=== PATIENT | female | born 1995 | race African-American/Black ===

== ENCOUNTER → 2020-07-10 | Outpatient (CLI) | payer OTHER ==
[2020-07-10 16:14] LABS: BASO % 0.4 % (0.0-1.0); EOS % 0.6 % (0.0-3.0); HEMATOCRIT 45.2 % (36.0-47.0); HEMOGLOBIN 14.1 g/dl (12.0-15.5); LYMPH # 1.8 10^3/uL (1.5-5.0); LYMPH % 26.9 % (24.0-44.0); MEAN CORPUSCULAR HEMOGLOBIN 30.9 pg (27.0-33.0); MEAN CORPUSCULAR HGB CONC 31.2 g/dl (32.0-36.5); MEAN CORPUSCULAR VOLUME 98.9 fl (80.0-96.0); MONO # 0.4 10^3/uL (0.0-0.8); MONO % 6.6 % (2.0-8.0); NEUTROPHILS # 4.4 10^3/uL (1.5-8.5); NEUTROPHILS % 65.4 % (36.0-66.0); PLATELET COUNT, AUTOMATED 247 10^3/uL (150-450); RED BLOOD COUNT 4.57 10^6/uL (4.00-5.40); WHITE BLOOD COUNT 6.7 10^3/uL (4.0-10.0)
[2020-07-10 16:22] LABS: ALBUMIN 4.1 GM/DL (3.2-5.2); ALT/SGPT 17 U/L (12-78); BILIRUBIN,TOTAL 0.3 MG/DL (0.2-1.0); BLOOD UREA NITROGEN 10 MG/DL (7-18); CALCIUM LEVEL 9.5 MG/DL (8.5-10.1); CARBON DIOXIDE LEVEL 30 MEQ/L (21-32); CHLORIDE LEVEL 105 MEQ/L (98-107); GLOMERULAR FILTRATION RATE > 60.0 (>60); GLUCOSE, FASTING 94 MG/DL (70-100); POTASSIUM SERUM 4.3 MEQ/L (3.5-5.1); SODIUM LEVEL 139 MEQ/L (136-145); TOTAL PROTEIN 7.6 GM/DL (6.4-8.2)
== END ==
LOC: M WUC 14:41
PROVIDERS: ATTEND Physician Assistant
DX: R10.2 Pelvic and perineal pain (principal)

== ENCOUNTER → 2020-07-10 | Outpatient (REF) | payer OTHER | LOC: M WUC 16:20 | PROVIDERS: ATTEND Physician Assistant | DX: Z11.3 Encounter for screening for infections with a predominantly sexual mode of transmission (principal); R10.2 Pelvic and perineal pain ==

== ENCOUNTER 2020-07-21 20:33 | Emergency (ER) | payer OTHER ==
[~2020-07-21] VITALS: Ht 170.2 cm; Wt 76.7 kg
[2020-07-21] MEDS ORDERED: NS 1,000 ML IV ONE (21:10)
[2020-07-21] MEDS ORDERED: MORPHINE 4 MG/ML 1ML VIAL/SYRINGE (J2270) IV ONE (21:10)
[2020-07-21] MEDS ORDERED: ONDANSETRON 4MG/2ML VIAL IV ONE (21:10)
[2020-07-21 21:20] LABS: BASO % 0.4 % (0.0-1.0); EOS # 0.1 10^3/uL (0.0-0.5); EOS % 1.2 % (0.0-3.0); HEMATOCRIT 42.7 % (36.0-47.0); HEMOGLOBIN 13.8 g/dl (12.0-15.5); LYMPH % 33.4 % (24.0-44.0); MEAN CORPUSCULAR HEMOGLOBIN 31.4 pg (27.0-33.0); MEAN CORPUSCULAR HGB CONC 32.3 g/dl (32.0-36.5); MEAN CORPUSCULAR VOLUME 97.3 fl (80.0-96.0); MONO # 0.7 10^3/uL (0.0-0.8); MONO % 8.1 % (2.0-8.0); NEUTROPHILS # 5.1 10^3/uL (1.5-8.5); NEUTROPHILS % 56.8 % (36.0-66.0); PLATELET COUNT, AUTOMATED 222 10^3/uL (150-450); RED BLOOD COUNT 4.39 10^6/uL (4.00-5.40); WHITE BLOOD COUNT 8.9 10^3/uL (4.0-10.0)
[2020-07-21 21:47] LABS: ALBUMIN 3.9 GM/DL (3.2-5.2); ALT/SGPT 17 U/L (12-78); BILIRUBIN,DIRECT < 0.1 MG/DL (0.0-0.2); BILIRUBIN,TOTAL 0.2 MG/DL (0.2-1.0); LIPASE 130 U/L (73-393); TOTAL PROTEIN 7.7 GM/DL (6.4-8.2)
[2020-07-21] MEDS ORDERED: ISOVUE-370 76% 100ML VIAL As Ordered ONE (21:54)
[2020-07-21] MEDS ORDERED: GI COCKTAIL 50ML BTL(HYOSCYAMINE/MAALOX/LIDOCAINE VISCOUS)(1:3:1) PO ONE (22:35)
[2020-07-21] MEDS ORDERED: DICYCLOMINE INJ 20MG/2ML (J0500) IM ONE (22:35)
--- NOTE | 2020-07-21 22:49 | REPVR ---
PROCEDURE INFORMATION: Exam: CT Abdomen And Pelvis With Contrast Exam date and time: 07/21/2020 10:00 PM Age: 25 years old Clinical indication: Abdominal pain; Localized; Right lower quadrant (rlq); Additional info: Rlq pain; R/O appy TECHNIQUE: Imaging protocol: Computed tomography of the abdomen and pelvis with contrast. Radiation optimization: All CT scans at this facility use at least one of these dose optimization techniques: automated exposure control; mA and/or kV adjustment per patient size (includes targeted exams where dose is matched to clinical indication); or iterative reconstruction. Contrast material: ISOVUE 370; Contrast volume: 100 ml; Contrast route: INTRAVENOUS (IV); COMPARISON: No relevant prior studies available. FINDINGS: Lungs: Clear appearing lung bases. Heart: The heart is normal in size and there is no pericardial effusion. Liver: Normal appearing liver. Gallbladder and bile ducts: There are surgical clips at the gallbladder fossa and the patient is post cholecystectomy. Normal common bile duct. Pancreas: Normal pancreas. Spleen: Normal spleen. Adrenal glands: Normal adrenal glands. Kidneys and ureters: There is enhancement of both kidneys. There is no evidence of hydronephrosis. Stomach and bowel: The cecum is in the right pelvis and there is no evidence significant inflammation along the margin. The appendix is very difficult to identify as it is contiguous with the terminal ileum. Intraperitoneal space: There is a small amount of free fluid within the pelvis. Vasculature: There is opacification of the aorta which appears normal in size. Lymph nodes: Unremarkable. No enlarged lymph nodes. Urinary bladder: Normal urinary bladder. Reproductive: Normal size uterus. 2.5 cm cyst right ovary. Bones/joints: There is no evidence of bony abnormality. Soft tissues: Unremarkable. IMPRESSION: 2.5 cm cyst right ovary and a small amount of free fluid within the pelvis. Electronically signed by: Nelson Ellison On 07/21/2020 22:49:07 PM
[2020-07-21] MEDS ORDERED: HYDR-3715 PO (22:59)
[2020-07-21] MEDS ORDERED: NORCO 5/325MG TABLET (BULK FOR ED) PO ONE (23:00)
[2020-07-21 23:16] VITALS: BP 113/66
== END 2020-07-21 23:24 | disposition home or self-care (01) ==
LOC: M ED 20:33
DX: N83.201 Unspecified ovarian cyst, right side (principal); R11.0 Nausea; G43.909 Migraine, unspecified, not intractable, without status migrainosus; F17.290 Nicotine dependence, other tobacco product, uncomplicated
CPT/HCPCS: 74177; 80047; 80076; 83690; 84702; 85025; 96361; 96372; 96374; 96375; 99284; J0500; J2270; J2405; Q9967

== ENCOUNTER 2020-08-01 23:09 | Emergency (ER) | payer OTHER ==
[~2020-08-01] VITALS: Ht 170.2 cm; Wt 77.4 kg
[~2020-08-01 23:09] MED LIST: HYDR-3715 PO
[2020-08-01] MEDS ORDERED: ACET1TAB55 PO (23:33)
[2020-08-02 01:32] LABS: BASO % 0.4 % (0.0-1.0); EOS # 0.1 10^3/uL (0.0-0.5); EOS % 1.6 % (0.0-3.0); HEMATOCRIT 40.1 % (36.0-47.0); HEMOGLOBIN 12.9 g/dl (12.0-15.5); LYMPH # 2.7 10^3/uL (1.5-5.0); LYMPH % 34.9 % (24.0-44.0); MEAN CORPUSCULAR HEMOGLOBIN 31.9 pg (27.0-33.0); MEAN CORPUSCULAR HGB CONC 32.2 g/dl (32.0-36.5); MONO # 0.5 10^3/uL (0.0-0.8); MONO % 6.7 % (2.0-8.0); NEUTROPHILS # 4.3 10^3/uL (1.5-8.5); NEUTROPHILS % 56.3 % (36.0-66.0); PLATELET COUNT, AUTOMATED 246 10^3/uL (150-450); RED BLOOD COUNT 4.05 10^6/uL (4.00-5.40); WHITE BLOOD COUNT 7.7 10^3/uL (4.0-10.0)
[2020-08-02] MEDS ORDERED: ONDANSETRON 4MG/2ML VIAL IV ONE (01:50)
[2020-08-02] MEDS ORDERED: ISOVUE-370 76% 100ML VIAL As Ordered ONE (01:50)
[2020-08-02 02:03] LABS: ALBUMIN 3.9 GM/DL (3.2-5.2); BILIRUBIN,DIRECT 0.1 MG/DL (0.0-0.2); BILIRUBIN,TOTAL 0.2 MG/DL (0.2-1.0); TOTAL PROTEIN 7.2 GM/DL (6.4-8.2)
[2020-08-02] MEDS: MORPHINE 4 MG/ML 1ML VIAL/SYRINGE (J2270) IV PRN ×2 (02:03→02:58)
--- NOTE | 2020-08-02 02:51 | REPVR ---
PROCEDURE INFORMATION: Exam: CT Abdomen And Pelvis With Contrast Exam date and time: 08/02/2020 1:46 AM Age: 25 years old Clinical indication: Abdominal pain; Other: Left and right; Additional info: Rlq abd pain, HX of ovarian cysts TECHNIQUE: Imaging protocol: Computed tomography of the abdomen and pelvis with contrast. Axial, coronal and sagittal reformatted images were created and reviewed. Radiation optimization: All CT scans at this facility use at least one of these dose optimization techniques: automated exposure control; mA and/or kV adjustment per patient size (includes targeted exams where dose is matched to clinical indication); or iterative reconstruction. Contrast material: ISO; Contrast volume: 100 ml; Contrast route: INTRAVENOUS (IV); COMPARISON: CT ABD/PEL W/IV CONTRAST ONLY 07/21/2020 9:59 PM FINDINGS: Liver: Scattered hypervascular hepatic lesions, measuring up to 1.1 cm in the left hepatic lobe, similar to prior and likely secondary to flash filling hemangiomata. Gallbladder and bile ducts: Status post cholecystectomy. No biliary ductal dilatation. Pancreas: Unremarkable. Spleen: Unremarkable. Adrenal glands: Normal. No mass. Kidneys and ureters: No mass. No radiodense calculi. No hydronephrosis. Stomach and bowel: No bowel wall thickening. No obstruction. No pneumatosis. Appendix: Normal. Intraperitoneal space: Trace nonspecific free pelvic fluid, likely physiologic. No organized fluid collection. No free air. Vasculature: Unremarkable. No aneurysm. Lymph nodes: No pathologically enlarged lymph nodes. Urinary bladder: Unremarkable as visualized. Reproductive: Unremarkable. Bones/joints: No acute osseous abnormality. Soft tissues: Small, fat containing umbilical hernia. IMPRESSION: 1. No CT evidence of acute intra-abdominal or pelvic pathology. 2. Additional findings, as above. Electronically signed by: Humberto Covarrubias On 08/02/2020 02:50:36 AM
[2020-08-02 02:56] VITALS: BP 143/88
--- NOTE | 2020-08-02 02:58 | REPVR ---
PROCEDURE INFORMATION: Exam: US Nonobstetric Pelvis; Complete Exam date and time: 08/02/2020 2:29 AM Age: 25 years old Clinical indication: Pelvic pain; Additional info: Rlq abd pain, HX of ovarian cysts TECHNIQUE: Imaging protocol: Transabdominal pelvic nonobstetric ultrasound. Complete exam. Real time ultrasound with image documentation. COMPARISON: CT ABD/PEL W/IV CONTRAST ONLY 08/02/2020 1:55 AM FINDINGS: Uterus/cervix: 6.9 x 3.8 x 4 cm. Normal endometrial thickness, measuring approximately 8 mm. Right ovary: 2.9 x 1.9 x 2.6 cm. No mass. Normal blood flow. Left ovary: 2.7 x 1.6 x 2.1 cm. No mass. Normal blood flow. Intraperitoneal space: No intraperitoneal fluid. Urinary bladder: Normal. IMPRESSION: No acute sonographic findings. Electronically signed by: Humberto Covarrubias On 08/02/2020 02:58:41 AM
[2020-08-02] MEDS ORDERED: OXYCODONE/APAP 5MG/325MG(BULK FOR ED) 1 TABLET PO ONE (03:20)
[2020-08-04] MEDS ORDERED: BACT800T5 PO (08:10)
== END 2020-08-02 03:38 | disposition home or self-care (01) ==
LOC: M ED 23:09
DX: R10.9 Unspecified abdominal pain (principal); F17.200 Nicotine dependence, unspecified, uncomplicated
CPT/HCPCS: 74177; 76856; 80047; 80076; 81001; 83690; 84702; 85025; 87088; 87186; 93976; 96374; 96375; 96376; 99284; J2270; J2405; Q9967

== ENCOUNTER 2020-08-09 19:26 | Emergency (ER) | payer OTHER ==
[~2020-08-09] VITALS: Ht 170.2 cm; Wt 70.5 kg
[~2020-08-09 19:26] MED LIST changes: +ACET1TAB55 PO; +BACT800T5 PO
[2020-08-09] MEDS ORDERED: NS 1,000 ML IV ONE (21:35)
[2020-08-09 21:47] LABS: BASO % 0.5 % (0.0-1.0); EOS # 0.1 10^3/uL (0.0-0.5); EOS % 1.2 % (0.0-3.0); HEMATOCRIT 43.2 % (36.0-47.0); HEMOGLOBIN 13.8 g/dl (12.0-15.5); LYMPH # 2.7 10^3/uL (1.5-5.0); LYMPH % 32.3 % (24.0-44.0); MEAN CORPUSCULAR HEMOGLOBIN 31.9 pg (27.0-33.0); MEAN CORPUSCULAR HGB CONC 31.9 g/dl (32.0-36.5); MONO # 0.6 10^3/uL (0.0-0.8); MONO % 7.2 % (2.0-8.0); NEUTROPHILS # 4.9 10^3/uL (1.5-8.5); NEUTROPHILS % 58.6 % (36.0-66.0); PLATELET COUNT, AUTOMATED 249 10^3/uL (150-450); RED BLOOD COUNT 4.32 10^6/uL (4.00-5.40); WHITE BLOOD COUNT 8.4 10^3/uL (4.0-10.0)
[2020-08-09] MEDS ORDERED: ONDANSETRON 4MG/2ML VIAL IV ONE (22:10)
[2020-08-09] MEDS ORDERED: MORPHINE 4 MG/ML 1ML VIAL/SYRINGE (J2270) IV ONE (22:10)
[2020-08-09 22:12] LABS: ALBUMIN 3.9 GM/DL (3.2-5.2); BILIRUBIN,DIRECT 0.1 MG/DL (0.0-0.2); BILIRUBIN,TOTAL 0.2 MG/DL (0.2-1.0); TOTAL PROTEIN 7.4 GM/DL (6.4-8.2)
[2020-08-09] MEDS ORDERED: ISOVUE-370 76% 100ML VIAL As Ordered ONE (22:15)
--- NOTE | 2020-08-09 23:00 | REPVR ---
PROCEDURE INFORMATION: Exam: CT Abdomen And Pelvis With Contrast Exam date and time: 08/09/2020 10:27 PM Age: 25 years old Clinical indication: Abdominal pain; Flank; Right; Additional info: R flank pain, recent UTI, appy vs pyelo TECHNIQUE: Imaging protocol: Computed tomography of the abdomen and pelvis with contrast. Radiation optimization: All CT scans at this facility use at least one of these dose optimization techniques: automated exposure control; mA and/or kV adjustment per patient size (includes targeted exams where dose is matched to clinical indication); or iterative reconstruction. Contrast material: ISOVUE 370; Contrast volume: 100 ml; Contrast route: INTRAVENOUS (IV); COMPARISON: CT ABD/PEL W/IV CONTRAST ONLY 08/02/2020 1:55 AM FINDINGS: Liver: Multiple hypervascular lesions scattered about the liver measuring up to 11 mm in the left hepatic lobe and 10 mm within the right hepatic lobe are unchanged. In a low-risk patient, these lesions are most likely to be benign and no further follow-up is recommended. In a high-risk patient, recommend further evaluation with liver MRI. Gallbladder and bile ducts: Status post cholecystectomy. Normal caliber common bile duct. Pancreas: Unremarkable. No ductal dilation. Spleen: Unremarkable. No splenomegaly. Adrenal glands: Normal. No mass. Kidneys and ureters: Unremarkable. No stones. No hydronephrosis. Stomach and bowel: Unremarkable. No obstruction. No mucosal thickening. Appendix: No evidence of appendicitis. Intraperitoneal space: Unremarkable. No free air. No significant fluid collection. Vasculature: Unremarkable. No abdominal aortic aneurysm. Lymph nodes: Unremarkable. No enlarged lymph nodes. Urinary bladder: Unremarkable as visualized. Reproductive: Unremarkable as visualized. Bones/joints: No acute fracture. Soft tissues: Unremarkable. IMPRESSION: 1. No acute abnormality. 2. Multiple hypervascular lesions scattered about the liver measuring up to 11 mm in the left hepatic lobe and 10 mm within the right hepatic lobe are unchanged. In a low-risk patient, these lesions are most likely to be benign and no further follow-up is recommended. In a high-risk patient, recommend further evaluation with liver MRI. High-risk includes patients with known malignancy with a propensity to metastasize to the liver, cirrhosis or the presence of hepatic risk factors (including hepatitis, nonalcoholic steatohepatitis, alcoholism, sclerosing cholangitis, primary biliary cirrhosis, choledochal cysts, hemochromatosis and other hereditary hepatic conditions, and anabolic steroid use). Electronically signed by: Mukesh Gomez On 08/09/2020 23:00:35 PM
[2020-08-09 23:40] VITALS: BP 132/87
--- NOTE | 2020-08-10 09:04 | ED PDOC ---
Post-Departure Follow-Up certified letter sent to regarding CT abd/p - needs fu.obtain pcp name and fax. if no pcp name refer [facility] and fax Suzanna Spence MD Aug 10, 2020 09:04
== END 2020-08-09 23:45 | disposition home or self-care (01) ==
LOC: M ED 19:26
DX: R10.9 Unspecified abdominal pain (principal); R11.2 Nausea with vomiting, unspecified; F17.200 Nicotine dependence, unspecified, uncomplicated; Z79.2 Long term (current) use of antibiotics
CPT/HCPCS: 74177; 80047; 80076; 81001; 83690; 84702; 85025; 96361; 96374; 96375; 99284; J2270; J2405; Q9967

== ENCOUNTER 2020-08-27 15:21 | Emergency (ER) | payer OTHER ==
[~2020-08-27] VITALS: Ht 170.2 cm; Wt 75.2 kg
[2020-08-27 18:00] LABS: BASO % 0.3 % (0.0-1.0); EOS % 0.3 % (0.0-3.0); HEMATOCRIT 44.3 % (36.0-47.0); HEMOGLOBIN 14.6 g/dl (12.0-15.5); LYMPH # 2.1 10^3/uL (1.5-5.0); LYMPH % 16.5 % (24.0-44.0); MEAN CORPUSCULAR HEMOGLOBIN 32.5 pg (27.0-33.0); MEAN CORPUSCULAR VOLUME 98.7 fl (80.0-96.0); MONO # 0.8 10^3/uL (0.0-0.8); MONO % 6.5 % (2.0-8.0); NEUTROPHILS # 9.9 10^3/uL (1.5-8.5); NEUTROPHILS % 76.2 % (36.0-66.0); PLATELET COUNT, AUTOMATED 232 10^3/uL (150-450); RED BLOOD COUNT 4.49 10^6/uL (4.00-5.40); WHITE BLOOD COUNT 12.9 10^3/uL (4.0-10.0)
[2020-08-27 18:23] LABS: ALBUMIN 4.1 GM/DL (3.2-5.2); BILIRUBIN,DIRECT 0.2 MG/DL (0.0-0.2); BILIRUBIN,TOTAL 0.9 MG/DL (0.2-1.0); TOTAL PROTEIN 7.9 GM/DL (6.4-8.2)
[2020-08-27] MEDS ORDERED: KETOROLAC 30 MG/ML 1ML VIAL IV ONE (19:05)
[2020-08-27] MEDS ORDERED: ONDANSETRON 4MG/2ML VIAL IV ONE (19:05)
[2020-08-27] MEDS ORDERED: ISOVUE-370 76% 100ML VIAL As Ordered ONE (19:22)
--- NOTE | 2020-08-27 20:35 | REPVR ---
PROCEDURE INFORMATION: Exam: CT Abdomen And Pelvis With Contrast Exam date and time: 08/27/2020 7:29 PM Age: 25 years old Clinical indication: Abdominal pain; Localized; Lower; Additional info: Lower abd pain, elev wbc TECHNIQUE: Imaging protocol: Computed tomography of the abdomen and pelvis with contrast. Radiation optimization: All CT scans at this facility use at least one of these dose optimization techniques: automated exposure control; mA and/or kV adjustment per patient size (includes targeted exams where dose is matched to clinical indication); or iterative reconstruction. Contrast material: ISOVUE 370; Contrast volume: 100 ml; Contrast route: INTRAVENOUS (IV); COMPARISON: CT ABD/PEL W/IV CONTRAST ONLY 08/09/2020 10:20 PM FINDINGS: Liver: Enhancing 8 mm mass in the posterior right lobe of the liver is not significantly changed. Other hypervascular lesions in the liver seen on the previous exam are not well visualized, possibly due to differences in contrast bolus timing. No new liver masses are seen. Gallbladder and bile ducts: There has been prior cholecystectomy. No biliary duct dilation. Pancreas: Normal. No ductal dilation. Spleen: Normal. No splenomegaly. Adrenal glands: Normal. No mass. Kidneys and ureters: Normal. No hydronephrosis. Stomach and bowel: Unremarkable. No obstruction. No mucosal thickening. Appendix: No evidence of appendicitis. Intraperitoneal space: Trace free fluid in the pelvis. Vasculature: Unremarkable. No abdominal aortic aneurysm. Lymph nodes: Unremarkable. No enlarged lymph nodes. Urinary bladder: Unremarkable as visualized. Reproductive: Involuting physiologic cysts are noted in both ovaries. No hydrosalpinx. Uterus is unremarkable. Bones/joints: Unremarkable. No acute fracture. Soft tissues: Unremarkable. IMPRESSION: 1. Involuting physiologic cysts in both ovaries. Trace free fluid in the pelvis, likely physiologic. 2. Hypervascular lesions seen in the liver on the previous exam are not well visualized on this exam. No new liver masses are seen. 3. No acute findings. Electronically signed by: Tristin Wiggins On 08/27/2020 20:36:01 PM
[2020-08-27 21:12] VITALS: BP 119/66
== END 2020-08-27 21:19 | disposition home or self-care (01) ==
LOC: M ED 15:21
DX: R10.30 Lower abdominal pain, unspecified (principal); R93.2 Abnormal findings on diagnostic imaging of liver and biliary tract
CPT/HCPCS: 74177; 80047; 80076; 81001; 83690; 84702; 85025; 96374; 96375; 99284; J1885; J2405; Q9967

== ENCOUNTER 2020-10-15 20:05 | Emergency (ER) | payer OTHER ==
[~2020-10-15] VITALS: Ht 170.2 cm; Wt 76.8 kg
[2020-10-15] MEDS ORDERED: APAP325T4 PO (20:15)
[2020-10-15] MEDS ORDERED: IBUP80TA PO (20:15)
[2020-10-16] MEDS ORDERED: NS 500 ML IV ONE (00:40)
[2020-10-16] MEDS ORDERED: ONDANSETRON 4MG/2ML VIAL IV ONE (00:40)
[2020-10-16] MEDS ORDERED: ISOVUE-370 76% 100ML VIAL As Ordered ONE (00:43)
[2020-10-16] MEDS ORDERED: KETOROLAC 30 MG/ML 1ML VIAL IV ONE (01:00)
[2020-10-16 01:09] LABS: BASO % 0.1 % (0.0-1.0); HEMATOCRIT 42.2 % (36.0-47.0); HEMOGLOBIN 13.9 g/dl (12.0-15.5); MEAN CORPUSCULAR HGB CONC 32.9 g/dl (32.0-36.5); MONO # 0.5 10^3/uL (0.0-0.8); MONO % 4.2 % (2.0-8.0); NEUTROPHILS # 11.1 10^3/uL (1.5-8.5); NEUTROPHILS % 87.4 % (36.0-66.0); PLATELET COUNT, AUTOMATED 244 10^3/uL (150-450); RED BLOOD COUNT 4.35 10^6/uL (4.00-5.40); WHITE BLOOD COUNT 12.7 10^3/uL (4.0-10.0)
[2020-10-16 01:39] LABS: ALBUMIN 3.8 GM/DL (3.2-5.2); ALT/SGPT 13 U/L (12-78); BILIRUBIN,DIRECT 0.1 MG/DL (0.0-0.2); BILIRUBIN,TOTAL 0.4 MG/DL (0.2-1.0); BLOOD UREA NITROGEN 11 MG/DL (7-18); CALCIUM LEVEL 9.6 MG/DL (8.5-10.1); CARBON DIOXIDE LEVEL 26 MEQ/L (21-32); CHLORIDE LEVEL 102 MEQ/L (98-107); GLOMERULAR FILTRATION RATE > 60.0 (>60); GLUCOSE, FASTING 97 MG/DL (70-100); LIPASE 87 U/L (73-393); POTASSIUM SERUM 4.7 MEQ/L (3.5-5.1); SODIUM LEVEL 135 MEQ/L (136-145); TOTAL PROTEIN 7.7 GM/DL (6.4-8.2)
[2020-10-16] MEDS: MORPHINE 2 MG/ML 1ML VIAL (J2270) IV PRN ×2 (01:50→03:00)
--- NOTE | 2020-10-16 02:52 | REPVR ---
PROCEDURE INFORMATION: Exam: CT Abdomen And Pelvis With Contrast Exam date and time: 10/16/2020 12:36 AM Age: 25 years old Clinical indication: Abdominal pain; Localized; Lower; Prior surgery; Surgery date: Post-operative (0-2 days); Surgery type: Lap; Additional info: Post operative pain TECHNIQUE: Imaging protocol: Computed tomography of the abdomen and pelvis with contrast. Radiation optimization: All CT scans at this facility use at least one of these dose optimization techniques: automated exposure control; mA and/or kV adjustment per patient size (includes targeted exams where dose is matched to clinical indication); or iterative reconstruction. Contrast material: ISO; Contrast volume: 100 ml; Contrast route: INTRAVENOUS (IV); COMPARISON: CT ABD/PEL W/IV CONTRAST ONLY 08/27/2020 7:27 PM FINDINGS: Liver: There are several focal areas of ill-defined hyperenhancement in the liver which are similar to the prior study. Gallbladder and bile ducts: Status post cholecystectomy. Pancreas: Normal. No ductal dilation. Spleen: Normal. No splenomegaly. Adrenal glands: Normal. No mass. Kidneys and ureters: Normal. No hydronephrosis. Stomach and bowel: Unremarkable. No obstruction. No mucosal thickening. Appendix: A normal appendix is seen. Intraperitoneal space: Minimal free air in the abdomen consistent with recent surgery. Minimal free fluid in the cul-de-sac which is upper normal for physiologic origin. Vasculature: Unremarkable. No abdominal aortic aneurysm. Lymph nodes: Unremarkable. No enlarged lymph nodes. Urinary bladder: Unremarkable as visualized. Reproductive: Unremarkable as visualized. Bones/joints: Unremarkable. No acute fracture. Soft tissues: Gas and infiltration about the umbilicus with a small surgical port in the right abdomen consistent with recent laparoscopic procedure. IMPRESSION: 1. Findings consistent with recent laparoscopic procedure. 2. Status post cholecystectomy which is similar to 08/09/2020. 3. Several foci of ill-defined hyperenhancement in the liver which are similar to the prior study. 4. Otherwise negative CT abdomen/pelvis. Electronically signed by: Lucio Waters On 10/16/2020 02:52:04 AM
[2020-10-16] MEDS ORDERED: OXYCODONE/APAP 5MG/325MG(BULK FOR ED) 1 TABLET PO ONE (03:35)
[2020-10-16] MEDS ORDERED: ONDA4TAB6 PO (03:38)
[2020-10-16 04:26] VITALS: BP 119/81
--- NOTE | 2020-10-16 14:11 | ED PDOC ---
Post-Departure Follow-Up ct abd/p faxed to dr baca for fu mg Suzanna Fabian MD Oct 16, 2020 14:11
== END 2020-10-16 04:27 | disposition home or self-care (01) ==
LOC: M ED 20:05
DX: G89.18 Other acute postprocedural pain (principal); F17.200 Nicotine dependence, unspecified, uncomplicated
CPT/HCPCS: 74177; 80048; 80076; 81001; 83605; 83690; 85025; 93041; 96361; 96374; 96375; 96376; 99284; J1885; J2270; J2405; Q9967

== ENCOUNTER 2020-10-22 18:24 | Emergency (ER) | payer OTHER ==
[~2020-10-22] VITALS: Ht 170.2 cm; Wt 74.8 kg
[~2020-10-22 18:24] MED LIST changes: +APAP325T4 PO; +IBUP80TA PO; +ONDA4TAB6 PO
--- NOTE | 2020-10-22 19:24 | REP ---
INDICATION: no BM in 1 week. COMPARISON: None. FINDINGS: KUB shows the intestinal gas pattern to be nonspecific. The organ silhouettes insofar as delineated are unremarkable. There is no evidence of free intraperitoneal air. The stool pattern is unremarkable. IMPRESSION: Nonspecific. <Electronically signed by Ra Paul > 10/22/201919
[2020-10-22 19:43] LABS: BASO % 0.2 % (0.0-1.0); EOS # 0.1 10^3/uL (0.0-0.5); EOS % 1.4 % (0.0-3.0); HEMATOCRIT 42.3 % (36.0-47.0); HEMOGLOBIN 13.9 g/dl (12.0-15.5); MEAN CORPUSCULAR HEMOGLOBIN 31.8 pg (27.0-33.0); MEAN CORPUSCULAR HGB CONC 32.9 g/dl (32.0-36.5); MEAN CORPUSCULAR VOLUME 96.8 fl (80.0-96.0); MONO # 0.7 10^3/uL (0.0-0.8); MONO % 8.2 % (2.0-8.0); NEUTROPHILS # 5.5 10^3/uL (1.5-8.5); NEUTROPHILS % 65.8 % (36.0-66.0); PLATELET COUNT, AUTOMATED 218 10^3/uL (150-450); RED BLOOD COUNT 4.37 10^6/uL (4.00-5.40); WHITE BLOOD COUNT 8.4 10^3/uL (4.0-10.0)
[2020-10-22 20:18] LABS: BLOOD UREA NITROGEN 11 MG/DL (7-18); CALCIUM LEVEL 9.6 MG/DL (8.5-10.1); CARBON DIOXIDE LEVEL 27 MEQ/L (21-32); CHLORIDE LEVEL 104 MEQ/L (98-107); CREATININE FOR GFR 0.57 MG/DL (0.55-1.30); GLOMERULAR FILTRATION RATE > 60.0 (>60); GLUCOSE, FASTING 97 MG/DL (70-100); POTASSIUM SERUM 4.4 MEQ/L (3.5-5.1); SODIUM LEVEL 137 MEQ/L (136-145)
[2020-10-22 20:19] LABS: ALBUMIN 3.9 GM/DL (3.2-5.2); ALT/SGPT 23 U/L (12-78); BILIRUBIN,DIRECT 0.1 MG/DL (0.0-0.2); BILIRUBIN,TOTAL 0.4 MG/DL (0.2-1.0); LIPASE 96 U/L (73-393); TOTAL PROTEIN 7.4 GM/DL (6.4-8.2)
[2020-10-22] MEDS ORDERED: KETOROLAC 30 MG/ML 1ML VIAL IV ONE (21:35)
[2020-10-22] MEDS ORDERED: ONDANSETRON 4MG/2ML VIAL IV ONE (21:35)
[2020-10-22] MEDS ORDERED: FLEET ENEMA PR STA (21:37)
[2020-10-22 21:54] VITALS: BP 115/79
[2020-10-22] MEDS ORDERED: LACTULOSE 20 GM/30 ML SYRUP UD PO ONE (22:05)
[2020-10-22] MEDS ORDERED: REGL10TA6 PO (22:34)
[2020-10-22] MEDS ORDERED: LACT10SO3 PO (22:34)
== END 2020-10-22 22:42 | disposition home or self-care (01) ==
LOC: M ED 18:24
DX: K59.00 Constipation, unspecified (principal); R11.2 Nausea with vomiting, unspecified; R10.9 Unspecified abdominal pain
CPT/HCPCS: 74018; 80048; 80076; 83690; 85025; 96374; 96375; 99284; J1885; J2405

== ENCOUNTER → 2020-11-27 | Outpatient (CLI) | payer OTHER ==
[~2020-11-27] MED LIST changes: +LACT10SO3 PO; +REGL10TA6 PO
--- NOTE | 2020-11-27 14:29 | REP ---
INDICATION: PELVIC PAIN ? OVARIAN CYST. COMPARISON: 08/02/2020. TECHNIQUE: Transabdominal scanning performed. Patient declined endovaginal ultrasound. FINDINGS: Uterine dimensions are 7.0 x 4.2 x 5.1 cm. Endometrial echo is 4 mm in AP dimension and centrally placed. The bladder measures 5.1 x 9.0 x 3.0cm. The right ovary has dimensions of 4.4 x 4.1 x 4.0 cm. It's Doppler flow is normal with a resistive index of 0.59. The left ovary dimensions are 3.8 x 3.8 x 1.8 cm. It's Doppler flow was normal with resistive index of 0.72. Complex likely hemorrhagic cyst of the right ovary measures 3.6 x 3.4 x 3.3 cm. No free fluid is seen in the cul-de-sac. IMPRESSION: Complex cyst of the right ovary is likely hemorrhagic, 3.6 x 3.4 x 3.3 cm. <Electronically signed by Jose Sawyer > 11/27/20 [id number]
== END ==
LOC: M RAD 12:59
PROVIDERS: ATTEND Student in an Organized Health Care Education/Training Program
DX: N83.201 Unspecified ovarian cyst, right side (principal)

== ENCOUNTER 2021-02-06 13:42 | Emergency (ER) | payer OTHER ==
[~2021-02-06] VITALS: Ht 175.3 cm; Wt 72.7 kg
[2021-02-06 16:30] LABS: BASO % 0.4 % (0.0-1.0); EOS # 0.1 10^3/uL (0.0-0.5); EOS % 0.9 % (0.0-3.0); HEMATOCRIT 41.3 % (36.0-47.0); HEMOGLOBIN 13.7 g/dl (12.0-15.5); LYMPH # 3.2 10^3/uL (1.5-5.0); LYMPH % 30.8 % (24.0-44.0); MEAN CORPUSCULAR HEMOGLOBIN 32.8 pg (27.0-33.0); MEAN CORPUSCULAR HGB CONC 33.2 g/dl (32.0-36.5); MEAN CORPUSCULAR VOLUME 98.8 fl (80.0-96.0); MONO # 0.7 10^3/uL (0.0-0.8); MONO % 6.7 % (2.0-8.0); NEUTROPHILS # 6.4 10^3/uL (1.5-8.5); PLATELET COUNT, AUTOMATED 251 10^3/uL (150-450); RED BLOOD COUNT 4.18 10^6/uL (4.00-5.40); WHITE BLOOD COUNT 10.4 10^3/uL (4.0-10.0)
[2021-02-06] MEDS ORDERED: ONDANSETRON 4MG/2ML VIAL IV ONE (16:40)
[2021-02-06] MEDS ORDERED: NS 1,000 ML IV ONE (16:40)
[2021-02-06] MEDS ORDERED: MORPHINE 4 MG/ML 1ML VIAL/SYRINGE (J2270) IV ONE (16:40)
[2021-02-06 17:06] LABS: ALT/SGPT 12 U/L (12-78); BILIRUBIN,DIRECT < 0.1 MG/DL (0.0-0.2); BILIRUBIN,TOTAL 0.2 MG/DL (0.2-1.0); BLOOD UREA NITROGEN 14 MG/DL (7-18); CALCIUM LEVEL 9.6 MG/DL (8.5-10.1); CARBON DIOXIDE LEVEL 29 MEQ/L (21-32); CHLORIDE LEVEL 102 MEQ/L (98-107); CREATININE FOR GFR 0.72 MG/DL (0.55-1.30); GLOMERULAR FILTRATION RATE > 60.0 (>60); GLUCOSE, FASTING 73 MG/DL (70-100); LIPASE 127 U/L (73-393); POTASSIUM SERUM 4.3 MEQ/L (3.5-5.1); SODIUM LEVEL 138 MEQ/L (136-145); TOTAL PROTEIN 7.8 GM/DL (6.4-8.2)
[2021-02-06] MEDS ORDERED: ISOVUE-370 76% 100ML VIAL As Ordered ONE (17:55)
--- NOTE | 2021-02-06 18:32 | REPVR ---
PROCEDURE INFORMATION: Exam: CT Abdomen And Pelvis With Contrast Exam date and time: 02/06/2021 6:02 PM Age: 25 years old Clinical indication: Abdominal pain; Localized; Right lower quadrant (rlq); Additional info: Rlq pain R/O appy TECHNIQUE: Imaging protocol: Computed tomography of the abdomen and pelvis with contrast. Radiation optimization: All CT scans at this facility use at least one of these dose optimization techniques: automated exposure control; mA and/or kV adjustment per patient size (includes targeted exams where dose is matched to clinical indication); or iterative reconstruction. Contrast material: ISOVUE 370; Contrast volume: 100 ml; Contrast route: INTRAVENOUS (IV); COMPARISON: CT ABD/PEL W/IV CONTRAST ONLY 10/16/2020 1:54 AM FINDINGS: Liver: There is a diffuse decrease in hepatic parenchymal density, consistent with steatosis. Redemonstration of foci of hyperenhancement in the liver measuring up to 1.4 cm in segment 2 of the left lobe of the liver. These likely represent hemangiomas. Correlation with nonemergent liver ultrasound could be obtained if clinically desired. Gallbladder and bile ducts: There has been a cholecystectomy. Pancreas: Normal. No ductal dilation. Spleen: Normal. No splenomegaly. Adrenal glands: Normal. No mass. Kidneys and ureters: Normal. No hydronephrosis. Stomach and bowel: Unremarkable. No obstruction. No mucosal thickening. Appendix: The appendix is within normal limits. There is no appendiceal enlargement, periappendiceal inflammatory changes or abscess. Intraperitoneal space: There is minimal fluid in the cul-de-sac most likely physiologic. Clinical correlation to exclude other causes of cul-de-sac fluid suggested. Also noted are complex fluid collections in the parametrial and adnexal regions bilaterally. Possibility of inflammatory disease such as endometriosis or PID to be excluded clinically. Vasculature: Unremarkable. No abdominal aortic aneurysm. Lymph nodes: Unremarkable. No enlarged lymph nodes. Urinary bladder: Unremarkable as visualized. Reproductive: See "Intraperitoneal space" finding. Bones/joints: Unremarkable. No acute fracture. Soft tissues: There is a small umbilical hernia. There is no evidence of incarceration. IMPRESSION: 1. There is a diffuse decrease in hepatic parenchymal density, consistent with steatosis. 2. There has been a cholecystectomy. 3. Redemonstration of foci of hyperenhancement in the liver measuring up to 1.4 cm in segment 2 of the left lobe of the liver. These likely represent hemangiomas. Correlation with nonemergent liver ultrasound could be obtained if clinically desired. 4. The appendix is within normal limits. There is no appendiceal enlargement, periappendiceal inflammatory changes or abscess. 5. There is minimal fluid in the cul-de-sac most likely physiologic. Clinical correlation to exclude other causes of cul-de-sac fluid suggested. Also noted are complex fluid collections in the parametrial and adnexal regions bilaterally. Possibility of inflammatory disease such as endometriosis or PID to be excluded clinically. Electronically signed by: Ruddy Cota On 02/06/2021 18:32:36 PM
[2021-02-06] MEDS ORDERED: KETOROLAC 30 MG/ML 1ML VIAL IV ONE (19:25)
--- NOTE | 2021-02-06 20:23 | REPVR ---
PROCEDURE INFORMATION: Exam: US Nonobstetric Pelvis; Complete Exam date and time: 02/06/2021 8:12 PM Age: 25 years old Clinical indication: Pelvic pain; Additional info: Right adenexal pain TECHNIQUE: Imaging protocol: Transabdominal pelvic nonobstetric ultrasound. Complete exam. Real time ultrasound with image documentation. COMPARISON: US PELVIC NON-OB COMPLETE 11/27/2020 1:13 PM FINDINGS: Uterus/cervix: Uterus measures 9.2 x 3.4 x 3.9 cm. Endometrial echo complex measures 9 mm. Right adnexa: Right ovary measures 2.4 x 1.8 x 3.3 cm. Dominant follicle measures 10 mm. Left adnexa: Left ovary measures 2.9 x 2.1 x 2.9 cm. Intraperitoneal space: Trace free fluid in the cul-de-sac. Urinary bladder: Visualized bladder unremarkable. IMPRESSION: Unremarkable examination. Electronically signed by: Ruddy Cota On 02/06/2021 20:23:26 PM
[2021-02-06] MEDS ORDERED: HYDR-4571 PO (20:45)
[2021-02-06] MEDS ORDERED: IBUP-1022 PO (20:45)
[2021-02-06 20:56] VITALS: BP 110/63
[2021-02-06 22:14] LABS: GC DNA AMPLIFICATION NEGATIVE (NEGATIVE)
--- NOTE | 2021-02-07 10:19 | ED PDOC ---
Post-Departure Follow-Up radiology rpeor tfaxed to Kathy Aiken Sarah MD Feb 07, 2021 10:19
== END 2021-02-06 21:03 | disposition home or self-care (01) ==
LOC: M ED 13:42
DX: R10.2 Pelvic and perineal pain (principal); N83.201 Unspecified ovarian cyst, right side; F17.200 Nicotine dependence, unspecified, uncomplicated
CPT/HCPCS: 74177; 76856; 80048; 80076; 83690; 84702; 85025; 87210; 87661; 93976; 96361; 96374; 96375; 99284; J1885; J2270; J2405; Q9967; U0002

== ENCOUNTER 2021-03-09 20:29 | Emergency (ER) | payer OTHER ==
[~2021-03-09] VITALS: Ht 172.7 cm; Wt 77.1 kg
[~2021-03-09 20:29] MED LIST changes: +FLAG500T PO; +HYDR-4571 PO; +IBUP-1022 PO
--- OUTSIDE RECORDS SUMMARY | 2021-03-09 20:36 | CCD ---
Author Author [facility] Organization [facility] Address Unknown Phone Unavailable Care Team Providers Care Dental Director Name Role Phone NelliKathy lake Unavailable PROBLEMS Type Condition ICD9-CM Code [id number] Code Onset Dates Condition S tatus W/U Status Risk SNOMED Code Notes Problem Adnexal cyst N94.9 Active confirmed [id number] ALLERGIES No Known Allergies ENCOUNTERS from 1997 to 2021-03-07 Encounter Location Date Provider Diagnosis [facility] [id number] [facility] [phone] [place] [address] Feb, Kathy Aiken IMMUNIZATIONS No Information SOCIAL HISTORY Tobacco Use: Social History Observation Description Date Details (start date - stop date) Current Smoker Sex Assigned At : Social History Observation Description Sex Assigned At Unknown Education: Question Answer Notes Level of Education: High School Audit Question Answer Notes Total Score: 3 Interpretation: Alcohol Education Language: Question Answer Notes Languages spoken: Vietnamese Holiness: Question Answer Notes Holiness No mandaen beliefs that would impact health care. Domestic Violence: Question Answer Notes Status: Sexual Hx: Question Answer Notes Had sex in the last 12 months (vaginal, oral, or anal)? Yes LMP: 10/30/20 Have you ever had an STD? Yes with Men only Use protection? No Chlamydia? Yes Drug and Alcohol Question Answer Notes Total Score: 0 Interpretation: No problems reported Alcohol Screening: Question Answer Notes Did you have a drink containing alcohol in the past year? Ye s Points 4 Interpretation Positive How often did you have six or more drinks on one occas ion in the past year? Less than monthly (1 point) How many drinks did you have on a typica l day when you were drinking in the past year? 1 or 2 (0 points) How often did you have a drink containing alcohol in t he past year? Two to three times per week (3 points) Tobacco Use: Question Answer Notes Are you a: current smoker Patient counseled on the dangers of tobacco use and urged to quit: 11/01/2020 How many cigarettes a day do you smoke? 5 or less Are you interested in quitting? Not ready to quit Counseled the patient on smoking effects, education provided 11/01/2020 REASON FOR REFERRAL No Information VITAL SIGNS No information MEDICATIONS No Information PROCEDURES No Information RESULTS No Results REASON FOR VISIT ER follow up appt MEDICAL (GENERAL) HISTORY Type Description Date Surgical History 2017 Surgical History Cholecystectomy 2017 Surgical History Ectopic 2019 Surgical History Exploratory laparoscopy [facility] 10/15/20 Hospitalization History Exhaustion/Dehydration 2017 Goals Section No Information Health Concerns No Information MEDICAL EQUIPMENT No Information MENTAL STATUS No Information FUNCTIONAL STATUS No Information ASSESSMENTS No Information PLAN OF TREATMENT Next Appt Details Provider Name:Kathy Aiken, 2021-03-13 03:00:00 PM, [address] [facility], , [place], [address], Insurance Providers Payer Name Payer Address Payer Phone Insured Name Patient Relati onship to Insured Coverage Start Date Coverage End Date [address] [phone] JOSE CAR self
--- OUTSIDE RECORDS SUMMARY | 2021-03-09 20:36 | CCD | Continuity of Care Document ---
Author Author Zaria MARINO DO Organization Unknown Address [address] [place] [address] Phone [phone] Problems Description No Information Available Social History Type Date Description Comments Sex Unknown ETOH Use Denies alcohol use Tobacco Use Start: Unknown Patient is a current smoker, smo kes every day Recreational Drug Use Denies Drug Use Allergies, Adverse Reactions, Alerts Description No Known Drug Allergies Medications Active Medications SIG Qnty Indications Ordering Provide r Date Ec-Naproxen 500mg Tablets DR take one pill every 12 hour for menstral cramping Unknown Immunizations Description No Information Available Vital Signs Date Vital Result Comment 12/20/2020 1:16pm BP Systolic 116 mmHg BP Diastolic 76 mmHg Respiratory Rate 18 /min O2 % BldC Oximetry 97 % Weight 170.38 lb Weight 77.282 kg Height 68 inches 5'8" BMI (Body Mass Index) 25.9 kg/m2 BSA (Body Surface Area) 1.91 m2 07/04/2020 1:46pm Heart Rate 87 /min Body Temperature 98.1 F Respiratory Rate 16 /min O2 % BldC Oximetry 98 % Results Test Acquired Date Facility Test Result H/L Range Note Xray 12/20/2020 [facility] [address] [place] [address] [phone] US Pelvic <pending> Inhouse-Influenza A&B Rna Prob 07/04/2020 In Office Influenza Virus A QL PCR NEGATIVE Negative Influenza Virus B QL PCR NEGATIVE Negative Procedures Date Code Description Status 12/20/2020 [address] Office/Outpatient New Low MDM 30 -44 Minutes Completed Medical Devices Description No Information Available Encounters Type Date Location Provider Dx Diagnosis Office Visit 12/20/2020 1:15p [facility] John Marino DO R10.2 Pelvic and perineal pain N83.202 Unspecified ovarian cyst, le ft side Assessments Date Code Description Provider 12/20/2020 R10.2 Pelvic and perineal pain Christine Marino DO 12/20/2020 N83.202 Unspecified ovarian cyst, left s michaela John Marino DO 07/04/2020 J06.9 Acute upper respiratory infectio n, unspecified Vernon Lopez PA-C Plan of Treatment Future Appointment(s):* 01/31/2021 1:00 pm - John Marino DO [facility] 12/20/2020 - John Marino DO* R10.2 Pelvic and perineal pain * N83.202 Unspecified ovarian cyst, left side Functional Status Description No Information Available Mental Status Description No Information Available Referrals Description No Information Available
--- OUTSIDE RECORDS SUMMARY | 2021-03-09 20:38 | CCD ---
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 Name Role Phone Nwogu, U John DO Unavailable Unavailable Nwogu, U John DO Unavailable Unavailable Nwogu, U John DO Unavailable Unavailable Nwogu, U John DO Unavailable Unavailable Nwogu, U John DO Unavailable Unavailable Nwogu, U John DO Unavailable Unavailable Nwogu, U John DO Unavailable Unavailable Nwogu, U John DO Unavailable Unavailable Nwogu, U John DO Unavailable Unavailable Nwogu, U John DO Unavailable Unavailable Nwogu, U John DO Unavailable Unavailable Nwogu, U Jonh DO Unavailable Unavailable Nwogu, U John DO Unavailable Unavailable Nwogu, U John DO Unavailable Unavailable Nwogu, U John DO Unavailable Unavailable Nwogu, U John DO Unavailable Unavailable Nwogu, U John DO Unavailable Unavailable Nwogu, U John DO Unavailable Unavailable Nwogu, U John DO Unavailable Unavailable Nwogu, U John DO Unavailable Unavailable Dante Aiken MD Unavailable Unavailable Dante Aiken MD Unavailable Unavailable Dante Aiken MD Unavailable Unavailable Dante Aiken MD Unavailable Unavailable Dante Aiken MD Unavailable Unavailable Dante Aiken MD Unavailable Unavailable Dante Aiken MD Unavailable Unavailable Dante Aiken MD Unavailable Unavailable Dante Aiken MD Unavailable Unavailable Dante Aiken MD Unavailable Unavailable Dante Aiken MD Unavailable Unavailable Dante Aiken MD Unavailable Unavailable Dante Aiken MD Unavailable Unavailable Dante Aiken MD Unavailable Unavailable Dante Aiken MD Unavailable Unavailable Dante Aiken MD Unavailable Unavailable Dante Aiken MD Unavailable Unavailable Dante Aiken MD Unavailable Unavailable Dante Aiken MD Unavailable Unavailable Dante Aiken MD Unavailable Unavailable Dante Aiken MD Unavailable Unavailable Dante Aiken MD Unavailable Unavailable Dante Aiken MD Unavailable Unavailable Dante Aiken MD Unavailable Unavailable Dante Aiken MD Unavailable Unavailable Dante Aiken MD Unavailable Unavailable Dante Aiken MD Unavailable Unavailable Dante Aiken MD Unavailable Unavailable Dante Aiken MD Unavailable Unavailable Dante Aiken MD Unavailable Unavailable Dante Aiken MD Unavailable Unavailable Dante Aiken MD Unavailable Unavailable Dante Aiken MD Unavailable Unavailable Dante Aiken MD Unavailable Unavailable Dante Aiken MD Unavailable Unavailable Dante Aiken MD Unavailable Unavailable Dante Aiken MD Unavailable Unavailable Dante Aiken MD Unavailable Unavailable Dante Aiken MD Unavailable Unavailable Dante Aiken MD Unavailable Unavailable Dante Aiken MD Unavailable Unavailable Dante Aiken MD Unavailable Unavailable Dante Aiken MD Unavailable Unavailable Dante Aiken MD Unavailable Unavailable Dante Aiken MD Unavailable Unavailable Dante Aiken MD Unavailable Unavailable Dante Aiken MD Unavailable Unavailable Dante Aiken MD Unavailable Unavailable Dante Aiken MD Unavailable Unavailable Dante Aiken MD Unavailable Unavailable Dante Aiken MD Unavailable Unavailable Dante Aiken MD Unavailable Unavailable Dante Aiken MD Unavailable Unavailable Dante Aiken MD Unavailable Unavailable Dante Aiken MD Unavailable Unavailable Dante Aiken MD Unavailable Unavailable Dante Aiken MD Unavailable Unavailable Dante Aiken MD Unavailable Unavailable Dante Aiken MD Unavailable Unavailable Dante Aiken MD Unavailable Unavailable Dante Aiken MD Unavailable Unavailable Dante Aiken MD Unavailable Unavailable Dante Aiken MD Unavailable Unavailable Dante Aiken MD Unavailable Unavailable Dante Aiken MD Unavailable Unavailable Dante Aiken MD Unavailable Unavailable Dante Aiken MD Unavailable Unavailable JocelyneDante MD Unavailable Unavailable LAROCK, Jie MICHAEL PATTERNMAKER PLASTER Unavailable Unavailable LAROCK, Jie MICHAEL PATTERNMAKER PLASTER Unavailable Unavailable LAROCK, Jie MICHAEL PATTERNMAKER PLASTER Unavailable Unavailable LAROCK, J FERNANDA PATTERNMAKER PLASTER Unavailable Unavailable LAROCK, Jie MICHAEL PATTERNMAKER PLASTER Unavailable Unavailable LAROCK, Jie MICHAEL PATTERNMAKER PLASTER Unavailable Unavailable LAROCK, Jie MICHAEL PATTERNMAKER PLASTER Unavailable Unavailable LAROCK, Jie MICHAEL PATTERNMAKER PLASTER Unavailable Unavailable LAROCK, Jie MICHAEL PATTERNMAKER PLASTER Unavailable Unavailable LAROCK, Jie MICHAEL PATTERNMAKER PLASTER Unavailable Unavailable LAROCK, Jie MICHAEL PATTERNMAKER PLASTER Unavailable Unavailable LAROCK, J FERNANDA PATTERNMAKER PLASTER Unavailable Unavailable LAROCK, Jie MICHAEL PATTERNMAKER PLASTER Unavailable Unavailable LAROCK, Jie MICHAEL PATTERNMAKER PLASTER Unavailable Unavailable LAROCK, Jie MICHAEL PATTERNMAKER PLASTER Unavailable Unavailable LAROCK, Jie MICHAEL PATTERNMAKER PLASTER Unavailable Unavailable LAROCK, Jie MICHAEL PATTERNMAKER PLASTER Unavailable Unavailable LAROCK, Jie MICHAEL PATTERNMAKER PLASTER Unavailable Unavailable LAROCK, Jie MICHAEL PATTERNMAKER PLASTER Unavailable Unavailable LAROCK, Jie MICHAEL PATTERNMAKER PLASTER Unavailable Unavailable LAROCK, Jie MICHAEL PATTERNMAKER PLASTER Unavailable Unavailable LAROCK, Jie MICHAEL PATTERNMAKER PLASTER Unavailable Unavailable SYMENOW, G CHRISTOPHER PA Unavailable Unavailable SYMENOW, G CHRISTOPHER PA Unavailable Unavailable SYMENOW, G CHRISTOPHER PA Unavailable Unavailable SYMENOW, G CHRISTOPHER PA Unavailable Unavailable SYMENOW, G CHRISTOPHER PA Unavailable Unavailable SYMENOW, G CHRISTOPHER PA Unavailable Unavailable SYMENOW, G CHRISTOPHER PA Unavailable Unavailable SYMENOW, G CHRISTOPHER PA Unavailable Unavailable SYMENOW, G CHRISTOPHER PA Unavailable Unavailable SYMENOW, G CHRISTOPHER PA Unavailable Unavailable SYMENOW, G CHRISTOPHER PA Unavailable Unavailable SYMENOW, G CHRISTOPHER PA Unavailable Unavailable SYMENOW, G CHRISTOPHER PA Unavailable Unavailable SYMENOW, G CHRISTOPHER PA Unavailable Unavailable SYMENOW, G CHRISTOPHER PA Unavailable Unavailable SYMENOW, G CHRISTOPHER PA Unavailable Unavailable OSWALDRancho DIAMOND MD Unavailable Unavailable OSWALDRancho DIAMOND MD Unavailable Unavailable OSWALD, Rancho DEE MD Unavailable Unavailable OSWALD, Rancho DEE MD Unavailable Unavailable OSWALD, Rancho DEE MD Unavailable Unavailable OSWALD, Rancho DEE MD Unavailable Unavailable OSWALD, Rancho DEE MD Unavailable Unavailable OSWALD, Rancho DEE MD Unavailable Unavailable OSWALD, Rancho DEE MD Unavailable Unavailable OSWALD, Rancho DEE MD Unavailable Unavailable OSWALD, Rancho DEE MD Unavailable Unavailable OSWALD, Rancho DEE MD Unavailable Unavailable OSWALD, Rancho DEE MD Unavailable Unavailable OSWALD, Rancho DEE MD Unavailable Unavailable OSWALD, Rancho DEE MD Unavailable Unavailable OWSALD, Rancho DEE MD Unavailable Unavailable OSWALD, Rancho DEE MD Unavailable Unavailable OSWALD, Rancho DEE MD Unavailable Unavailable OSWALD, Rancho DEE MD Unavailable Unavailable OSWALD, Rancho DEE MD Unavailable Unavailable Lopez, A Vernon PA Unavailable Unavailable Lopez, A Vernon PA Unavailable Unavailable Lopez, A Vernon PA Unavailable Unavailable Lopez, A Vernon PA Unavailable Unavailable Lopez, A Vernon PA Unavailable Unavailable Lopez, A Vernon PA Unavailable Unavailable Lopez, A Vernon PA Unavailable Unavailable Maring, Brent PA Unavailable Unavailable Maring, Brent PA Unavailable Unavailable Maring, Brent PA Unavailable Unavailable Maring, Brent PA Unavailable Unavailable Maring, Brent PA Unavailable Unavailable Maring, Brent PA Unavailable Unavailable Maring, Brent PA Unavailable Unavailable Maring, Brent PA Unavailable Unavailable Maring, Brent PA Unavailable Unavailable Maring, Brent PA Unavailable Unavailable Maring, Brent PA Unavailable Unavailable Maring, Brent PA Unavailable Unavailable Maring, Brent PA Unavailable Unavailable Maring, Brent PA Unavailable Unavailable Maring, Brent PA Unavailable Unavailable Maring, Brent PA Unavailable Unavailable Nwogu, U John DO Unavailable Unavailable Nwogu, U John DO Unavailable Unavailable Nwogu, U John DO Unavailable Unavailable Nwogu, U John DO Unavailable Unavailable Nwogu, U John DO Unavailable Unavailable Nwogu, U John DO Unavailable Unavailable Nwogu, U John DO Unavailable Unavailable Nwogu, U John DO Unavailable Unavailable Nwogu, U John DO Unavailable Unavailable Nwogu, U John DO Unavailable Unavailable Nwogu, U John DO Unavailable Unavailable Nwogu, U John DO Unavailable Unavailable Nwogu, U John DO Unavailable Unavailable Nwogu, U John DO Unavailable Unavailable Nwogu, U John DO Unavailable Unavailable Nwogu, U John DO Unavailable Unavailable Nwogu, U John DO Unavailable Unavailable Nwogu, U John DO Unavailable Unavailable Nwogu, U John DO Unavailable Unavailable Nwogu, U John DO Unavailable Unavailable Chan, Hserrie Mira PA Unavailable Unavailable Chan, Sherrie Mira PA Unavailable Unavailable Chan, Sherrie Mira PA Unavailable Unavailable Chan, Sherrie Mira PA Unavailable Unavailable Chan, Sherrie Mira PA Unavailable Unavailable Chan, Sherrie Mira PA Unavailable Unavailable Chan, Sherrie Mira PA Unavailable Unavailable Chan, Sherrie Mira PA Unavailable Unavailable Chan, Sherrie Mira PA Unavailable Unavailable Chan, Sherrie Mira PA Unavailable Unavailable TURRIN, TJ Unavailable Unavailable TURRIN, TJ Unavailable Unavailable TURRIN, TJ Unavailable Unavailable TURRIN, TJ Unavailable Unavailable Dodard, Sage DO Unavailable Unavailable Dodard, Sage DO Unavailable Unavailable Dodard, Sage DO Unavailable Unavailable Dodard, Sage DO Unavailable Unavailable Dodard, Sage DO Unavailable Unavailable Dodard, Sage DO Unavailable Unavailable Dodard, Sage DO Unavailable Unavailable Dodard, Sage DO Unavailable Unavailable Dodard, Sage DO Unavailable Unavailable Dodard, Sage DO Unavailable Unavailable Dodard, Sage DO Unavailable Unavailable Dodard, Sage DO Unavailable Unavailable Dodard, Sage DO Unavailable Unavailable Dodard, Sage DO Unavailable Unavailable Dodard, Sage DO Unavailable Unavailable Dodard, Sage DO Unavailable Unavailable Dodard, Sage DO Unavailable Unavailable Dodard, Sage DO Unavailable Unavailable Dodard, Sage DO Unavailable Unavailable Dodard, Sage DO Unavailable Unavailable Dodard, Sage DO Unavailable Unavailable Dodard, Sage DO Unavailable Unavailable Dodard, Sage DO Unavailable Unavailable Dodard, Sage DO Unavailable Unavailable Dodard, Sage DO Unavailable Unavailable Dodard, Sage DO Unavailable Unavailable Dodard, Sage DO Unavailable Unavailable Dodard, Sage DO Unavailable Unavailable Dodard, Sage DO Unavailable Unavailable Dodard, Sage DO Unavailable Unavailable Dodard, Sage DO Unavailable Unavailable Dodard, Sage DO Unavailable Unavailable Dodard, Sage DO Unavailable Unavailable Dodard, Sage DO Unavailable Unavailable Dodard, Sage DO Unavailable Unavailable Dodard, Sage DO Unavailable Unavailable Dodard, Sage DO Unavailable Unavailable Dodard, Asge DO Unavailable Unavailable Dodard, Sage DO Unavailable Unavailable Dodard, Sage DO Unavailable Unavailable Dodard, Sage DO Unavailable Unavailable Doug Quevedo Unavailable [phone] Doug Quevedo Unavailable [phone] Doug Quevedo Unavailable [phone] Doug Quevedo Unavailable [phone] Doug Quevedo Unavailable [phone] Doug Quevedo Unavailable [phone] [facility], [facility] Unavailable Unavailable CHANLIECCO, C JOHN MD Unavailable Unavailable CHANLIECCO, C JOHN MD Unavailable Unavailable CHANLIECCO, C JOHN MD Unavailable Unavailable CHANLIECCO, C JOHN MD Unavailable Unavailable CHANLIECCO, C JOHN MD Unavailable Unavailable CHANLIECCO, C JOHN MD Unavailable Unavailable CHANLIECCO, C JOHN MD Unavailable Unavailable CHANLIECCO, C JOHN MD Unavailable Unavailable CHANLIECCO, C JOHN MD Unavailable Unavailable CHANLIECCO, C JOHN MD Unavailable Unavailable CHANLIECCO, C JOHN MD Unavailable Unavailable Re-disclosure Warning The records that you are about to access may contain information from federally-assisted alcohol or drug abuse programs. If such information is present, then the following federally mandated warning applies: This information has been disclosed to you from records protected by federal confidentiality rules (42 CFR part 2). The federal rules prohibit you from making any further disclosure of this information unless further disclosure is expressly permitted by the written consent of the person to whom it pertains or as otherwise permitted by 42 CFR part 2. A general authorization for the release of medical or other information is NOT sufficient for this purpose. The Federal rules restrict any use of the information to criminally investigate or prosecute any alcohol or drug abuse patient.The records that you are about to access may contain highly sensitive health information, the redisclosure of which is protected by Article 27-F of the [facility] Public Health law. If you continue you may have access to information: Regarding HIV / AIDS; Provided by facilities licensed or operated by the [facility] Office of Mental Health; or Provided by the [facility] Office for People With Developmental Disabilities. If such information is present, then the following [facility] mandated warning applies: This information has been disclosed to you from confidential records which are protected by state law. State law prohibits you from making any further disclosure of this information without the specific written consent of the person to whom it pertains, or as otherwise permitted by law. Any unauthorized further disclosure in violation of state law may result in a fine or shelter sentence or both. A general authorization for the release of medical or other information is NOT sufficient authorization for further disc losure. Allergies and Adverse Reactions Type Description Substance Reaction Status Data Source(s ) No Known Drug Allergies No Known Drug Allergies [facility] Propensity to adverse reactions BEE STING BEE STING ANAPHYLAXIS [facility] Food allergy COCONUT COCONUT ITCHING [facility] Food allergy WATERMELON WATERMELON ITCHING [facility] Encounters Encounter Providers Location Date Indications Data Source(s ) [place] [address] [address] 02/27/2021 12:00:00 AM EDT eC ([facility]) Outpatient Attender: John Johnson DOConsultant: Kathy barrientos MD 12/20/2020 01:15:00 PM EDT - 12/20/2020 01:15:00 PM EDT [facility] Outpatient Attender: John Johnson DO [facility] 12/09 01:15:00 PM EDT [facility] Emergency Attender: TJ TURNERConsultant: Kathy dave MD 12/19/2020 01:35:00 PM EDT - 12/19/2020 04:10:00 PM EDT [facility] Patient discharged. Emergency Attender: JENNY APPLE MDConsultant: Kathy dave MD 12/18/2020 10:14:00 PM EDT - 12/19/2020 04:00:00 AM EDT [facility] Patient discharged. Emergency Attender: JOHN ANGULO MDConsultant: Rojas Aiken MD 12/02/2020 03:34:00 PM EDT - 12/02/2020 06:51:00 PM EDT [facility] Patient discharged. [place]patient [id number] [address] 11/01/2020 12:00:00 AM EDT eCW1 ([facility]) Emergency Attender: BRIDGER BLANCO PAReferrer : Kathy Aiken MD EMERGENCY ROOM-EMERGENCY ROOM 10/17/2020 11:40:00 PM EDT - 10/17/2020 11:40:00 PM EDT [facility] Patient discharged. Outpatient Attender: Sage Anguloultant: Kathy meza MD 10/15/2020 07:45:00 AM EDT - 10/15/2020 12:24:00 PM EDT [facility] Patient discharged. Outpatient Attender: Sage Anguloultant: Kathy meza MD 10/10/2020 10:41:00 AM EDT - 10/10/2020 11:41:00 AM EDT [facility] Patient discharged. Outpatient Attender: Brent WALLER 10/06/19 09:54:06 AM EDT - 10/05/2020 10:33:25 AM EDT [facility] ([facility] ) Outpatient Attender: Sage Magañaant: Kathy meza MD 10/04/2020 01:18:13 PM EDT - 10/05/2020 09:05:00 AM EDT [facility] Patient discharged. Outpatient Attender: Doug Quevedo 09/26 03:22:43 PM EDT - 09/26/2020 04:56:57 PM EDT [facility] ([facility] ) Outpatient Attender: FERNANDA FORMAN NP 12/2020 03:06:47 PM EDT - 09/15/2020 04:55:09 PM EDT [facility] ([facility] ) Emergency Attender: TJ Daughertyltant: Kathy dave MD 08/27/2020 10:54:00 PM EDT - 08/28/2020 02:23:00 AM EDT [facility] Patient discharged. Outpatient Attender: Brent WALLER 04/19/20 21 01:59:07 PM EDT - 08/27/2020 02:35:23 PM EDT [facility] ([facility] ) Emergency Attender: JENNY OSWALD MDConsultant: [facility] 08/14/2020 06:54:00 PM EDT - 08/14/2020 08:29:00 PM EDT [facility] Patient discharged. Outpatient Attender: Mira morales 07/10/2020 12:00:00 PM EST [facility] ([facility]) Outpatient Attender: Vernon WALLER 01:23:00 PM EST - 07/04/2020 01:23:00 PM EST [facility] Immunizations Vaccine Date Status Description Data Source(s) COVID-19 VACCINE [employer] 02/20/2021 12:00:00 AM EDT completed [facility] Vaccine Series Complete: YESThis Data wa s Submitted to [facility] [place]. COVID-19 VACCINE [employer] 01/30/2021 12:00:00 AM EDT completed [facility] Vaccine Series Complete: NOThis Data was Submitted to [facility] [place]. Medications Medication Brand Name Start Date Product Form Dose Route Admi nistrative Instructions Pharmacy Instructions Status Indications Reaction Description Data Source(s) Rocephin/Ceftriaxone Sodium Injection Per 250 MG 07/10 12:00:00 AM EST completed [facility] ([facility]) Medication administered onsite No Active Medications 07/10/2020 12:00:00 AM EST completed [facility] ([facility]) doxycycline hyclate 100 MG Oral Capsule Doxycycline Hyclate 07/10/2020 12:00:00 AM EST active [facility] Insurance Providers Payer name Policy type / Coverage type Policy ID Covered libertarian ID Covered libertarian's relationship to burger Policy Burger Plan Information [facility] [id number] [facility] [id number] [facility] [id number] [facility] / [id number] Self [id number] Needs Workers Comp Information [employer] Health Claim [id number] Employee [id number] [facility] [id number] S [id number] [facility] [place] [id number] 01 [id number] [facility] [id number] [facility] [place] UNAVAILABLE 01 UNAVAILABLE [facility] [id number] H [id number] [facility] [id number] SP [id number] [facility] [id number] H [id number] [facility] [id number] 18 [id number] [facility] [place] [id number] 01 [id number] [facility] [id number] Problems, Conditions, and Diagnoses Code Display Name Description Problem Type Effective Dates Data Source(s) R102 Pelvic and perineal pain Pelvic and perineal pain Diag nosis 12/19/2020 01:35:00 PM [facility] Z8742 Personal history of other diseases of th e female genital tract Personal history of other diseases of the female genital tract Diagnosis 12/19/2020 01:35:00 PM [facility] G65744 Nicotine dependence, cigarettes, uncompl icated Nicotine dependence, cigarettes, uncomplicated Diagnosis 12/19/2020 01:35:00 PM [facility] H60698 Unspecified ovarian cyst, left side Unspecified ovarian cyst, left side Diagnosis 12/19/2020 01:35:00 PM [facility] N9489 Other specified conditions a ssociated with female genital organs and menstrual cycle Other specified conditions associated wi th female genital organs and menstrual cycle Diagnosis 12/18/2020 10:14:00 PM [facility] R1032 Left lower quadrant pain Left lower quadrant pain Diag nosis 12/18/2020 10:14:00 PM [facility] V07465 Unspecified place in unspeci fied non-institutional (private) residence as the place of occurrence of the external cause Unspecified place in unspecified non-institutional (private) residence as the place of occurrence of the external cause Diagnosis 12/02/2020 03:34:00 PM [facility] [id number] Contact with other sharp obj ect(s), not elsewhere classified, initial encounter Contact with other sharp object(s), not elsewhere classified, initial encounter Diagnosis 12/02/2020 03:34:00 PM [facility] Z23 Encounter for immunization Encounter for immunization Diagnosis 12/02/2020 03:34:00 PM [facility] [id number] Nicotine dependence, other tobacco produ ct, uncomplicated Nicotine dependence, other tobacco product, uncomplicated Diagnosis 12/02 03:34:00 PM [facility] [id number] Abrasion, right foot, initial encounter Abrasion, right foot, initial encounter Diagnosis 12/02/2020 03:34:00 PM [facility] [id number] Unspecified injury of right foot, initia l encounter Unspecified injury of right foot, initial encounter Diagnosis 12/02/2020 03:34:00 PM [facility] Z90.49 Acquired absence of other specified part s of digestive tract ACQUIRED ABSENCE OF OTHER SPECIFIED PARTS OF DIGES Diagnosis 10/17/2020 11:40:0 0 PM [facility] 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 (NSAID) 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) USE OF NON-STEROIDAL NON-INFLA Diagnosis 10/18/19 21 11:40:00 PM [facility] F17.210 Nicotine dependence, cigarettes, uncompl icated NICOTINE DEPENDENCE, CIGARETTES, UNCOMPLICATED Diagnosis 10/17/2020 11:40:00 PM [facility] G89.18 Other acute postprocedural pain OTHER ACUTE POST PROCEDURAL PAIN Diagnosis 10/17/2020 11:40:00 PM [facility] N13.2 Hydronephrosis with renal and ureteral c alculous obstruction HYDRONEPHROSIS WITH RENAL AND URETERAL CALCULOUS O Diagnosis 01/2021 11:40:00 PM [facility] R10.2 Pelvic and perineal pain PELVIC AND PERINEAL PAIN Diag nosis 10/17/2020 11:40:00 PM [facility] D98447 Nicotine dependence, unspecified, uncomp licated Nicotine dependence, unspecified, uncomplicated Diagnosis 10/15/2020 07:45:00 AM [facility] G8929 Other chronic pain Other chronic pain Diagnosis 11/2020 07:45:00 AM [facility] N809 Endometriosis, unspecified Endometriosis, unspecified Diagnosis 10/15/2020 07:45:00 AM EDT [facility] 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) Diagnosis 10/15/2020 07:45:00 AM EDT [facility] N7011 Chronic salpingitis Chronic salpingitis Diagnosis 0 10/15/2020 07:45:00 AM EDT [facility] Z1152 ENCOUNTER FOR SCREENING FOR COVID-19 ENCOUNTER F OR SCREENING FOR COVID-19 Diagnosis 10/10/2020 10:41:00 AM EDT [facility] J35338 Encounter for other preprocedural examin ation Encounter for other preprocedural examination Diagnosis 10/05/2020 08:15:00 AM EDT [facility] C98200 Elevated white blood cell count, unspeci fied Elevated white blood cell count, unspecified Diagnosis 08/27/2020 10:54:00 PM EDT [facility] R7402 Elevation of levels of lactic acid dehyd rogenase [LDH] Elevation of levels of lactic acid dehydrogenase [LDH] Diagnosis 08/27/2020 10:54:00 PM E DT [facility] B349 Viral infection, unspecified Viral infection, unspecif ied Diagnosis 08/27/2020 10:54:00 PM EDT [facility] R1012 Left upper quadrant pain Left upper quadrant pain Diag nosis 08/27/2020 10:54:00 PM EDT [facility] R1031 Right lower quadrant pain Right lower quadrant pain Di agnosis 08/14/2020 06:54:00 PM EDT [facility] N94.9 [id number] Adnexal cyst Problem 11/01/2020 12:00:00 AM EDT eCW1 ([facility]) Surgeries/Procedures Procedure Description Date Indications Data Source(s) OFFICE OUTPATIENT NEW 30 MINUTES 12/20/2020 12:00:00 A M EDT [facility] ([facility]) Therapeutic, Prophylactic Or Diagnostic Injection Subq/Im 07/10/2020 12:00:00 AM EST [facility] ([facility]) Results ID Date Data Source [id number] 02/06/2021 05:14:00 PM EDT [facility] Name Value Range Interpretation Code Description Data Rachel rce(s) Supporting Document(s) SARS coronavirus 2 RNA [Presence] in Res piratory specimen by JUAN with probe detection NEGATIVE [facility] This lab was ordered by [facility] a nd reported by [facility]. ID Date Data Source [id number] 10/29/2020 09:42:00 [place] [address] OPERATIVE SUMMARYNAME: JOCELINE Nguyễn DATE OF : 1995ATTENDING PHYS: SAGE GOMEZ DO DATE: 10/15/20 MR#: [id number] OF PROCEDURE: 10/15/2020HISTORY:Zaria is a 25-year-old female with extensive history of chronic pelvic pain and prior Cesareansection. After extensive counseling, decision was made to proceed with operative laparoscopy withpossible lysis of adhesions.PRE-OPERATIVE DIAGNOSIS: 1. Chronic pelvic pain. 2. History of prior section.POST-OPERATIVE DIAGNOSIS: 1. Chronic pelvic pain. 2. History of prior section. 3. Dense bowel and lower uterine segment adhesions. 4. Left hydrosalpinx. 5. Left endometrioma.PROCEDURE: 1. Operative laparoscopy. 2. Extensive lysis of adhesions. 3. Left salpingectomy. 4. Removal of left endometrioma.ANESTHESIA: General.SURGEON: Dr. Sage Gomez.COMPLICATIONS: None.ESTIMATED BLOOD LOSS: Less than 20 cc.SPECIMENS SENT TO THE LAB: Left tube and left endometrioma.DESCRIPTION OF PROCEDURE:After obtaining informed consent, patient was taken to the operating room, where generalanesthetic was found to be adequate. She was then draped and prepped in the usual sterile fashionin the dorsal lithotomy position. At this point, a Bello catheter was placed in the bladder for [address] [place] [id number] OPERATIVE SUMMARYNAME: JOCELINE Nguyễn DATE OF : 1995ATTENDING PHYS: SAGE GOMEZ DO DATE: 10/15/20 MR#: [id number]. We then turned our attention to the vagina, where a weighted speculum was placed and auterine manipulator was placed. After placing the uterine manipulator, I then turned my attention tothe abdomen, where a 10 mm infraumbilical incision was made. Using the Veress needle, theabdomen was inflated with CO2 gas to approximately 3.5 L. We then placed an 8 mm left lateralport. Then patient was placed in Trendelenburg. With this, the pelvis and abdomen were inspectedwith the above-noted finding. Using the Harmonic scalpel, the lysis of adhesions were performed.We were then able to free the left fallopian tube, where a large hydrosalpinx was noted. At thispoint, given the extensive damage to the tube, the decision was made to remove the entire tube sothe tube was removed from the cornual area down to the fimbriated end, and good hemostasis wasnoted. We also found a left endometrioma on the left ovary side, and this was also removed usingthe Harmonic scalpel. Pelvis was then copiously irrigated with normal saline. These specimenswere removed through the laparoscopic port and sent to Pathology for final diagnosis. At this point,a second check was performed. No evidence of any bleeding or other pathology noted. Allinstruments were removed, and the laparoscopic ports were closed using Dermabond. Then 0.25%Marcaine was placed on the operative site for post- operative pain. Patient tolerated procedure well.She was then transferred to recovery room in stable condition.Please send a copy of this report to [facility].DD: SAGE GOMEZ DO 10/29/20 09:03DT: MARCUS 10/29/20 09:19DS: SAGE GOMEZ DO 01/03/21 14:45 2 Name Value Range Interpretation Code Description Data Rachel rce(s) Supporting Document(s) ID Date Data Source [id number] 12/20/2020 01:44:00 PM EDT [facility] ([facility]) Name Value Range Interpretation Code Description Data Rachel rce(s) Supporting Document(s) Pelvic Laboratory test result [facility] ([facility]) ID Date Data Source [id number] 12/19/2020 07:24:00 PM EDT [facility] [address] [place] [address] PHONE: [phone] FAX: [phone] Name .................. : JOCELINE Nguyễn Acct Number.................. : [id number] ROOM. ................. : TR-06 MR Number ................... : [id number] Stay type ............. : E/R Discharge Date......... ... : 12/19/20 Admit Date ......... : 12/19/20 Admit Phys .................... : YUE WILKINS Date of ....... : 1995 Family Phys ................... : JOCELYNE [employer] Phone .................. : [phone] Age ................................ : 25 Film# .................. .:[id number] Sex ................................. : F Unsigned transcriptions are preliminary reports and do not represent a medical or legal document TRANSVAGINAL(NON OB) 17502 COMPLETE:12/19/20 15:04 KNB [id number] Reason(s): left pelvic pain, 5.8 cm ovarian cyst on CT 12-18-20 ULTRASOUND PELVIS ENDOVAGINAL INDICATION: Left pelvic pain, 5.8 cm ovarian cyst on CT COMPARISON: CT 12/19/2020 TECHNIQUE: Ultrasound of the pelvis is performed using endovaginal technique. Limited transabdominal survey. FINDINGS: Uterus: Size 8.0 x 4.0 x 4.9 cm. No focal uterine masses. Endometrium: thickness is 9.7 mm. Right ovary: 3.0 x 2.1 x 2.6 cm. No ovarian or adnexal masses. Color flow imaging/Doppler shows blood flow to the ovary. Left Ovary: 5.6 x 4.4 x 4.5 cm. cyst 5.0 x 4.0 x 3.5 cm. This has low-level internal echoes and thin septations. No nodularity. No internal blood flow on color flow imaging. Color flow imaging/Doppler shows blood flow to the ovary. No free fluid. IMPRESSION: Complex cyst left ovary. Favor hemorrhagic cyst or endometrioma. In the right clinical setting tubo- ovarian abscess could have a similar appearance. However, typically there would be increased blood flow around the complex cyst which is not seen in this case. Electronically Reviewed and Signed By Loyd Tavarez MD , 12/19/20 19:24, JWS Page [address] [place] [address] PHONE: [phone] FAX: [phone] Name .................. : JOCELINE GARCIA Gopi Acct Number.................. : [id number] ROOM. ................. : TR-06 Number ................... : [id number] Stay type ............. : E/R Discharge Date......... ... : 12/19/20 Admit Date ......... : 12/19/20 Admit Phys .................... : YUE WILKINS Date of ....... : 1995 Family Phys ................... : JOCELYNE VEGA Phone .................. : [phone] Age ................................ : 25 Film# .................. .:[id number] Sex ................................. : F Unsigned transcriptions are preliminary reports and do not represent a medical or legal document TRANSVAGINAL(NON OB) 12535 COMPLETE:12/19/20 15:04 KNB [id number] Reason(s): left pelvic pain, 5.8 cm ovarian cyst on CT 12-18-20 Transcribe Initials: RIANNA , Transcribe Date: 12/19/20 18:40, Dictation Date: Copy for: EMERGENCY DEPT via modem Copy for: 710 MED REC DISCHARGED Page 2 of 2 Name Value Range Interpretation Code Description Data Rachel rce(s) Supporting Document(s) ID Date Data Source [id number] 12/19/2020 01:35:00 PM EDT [facility] 1 OrderSheet [facility] Emergency Department [address] [place] [address] Phone #: ext- [phone] 12/19/2020 13:29 Patient: ZARIA CAR Sex: F : 1995 Age: 25yWEIGHT:72.5 kg (S)ALLERGIES: No Known Drug AllergyCHIEF COMPLAINT: pelvic painDIAGNOSIS: Cyst of ovaryLAB ORDERSOrder Description Priority Entered Acknowledged InitialedDIAGNOSTIC STUDY ORDERSOrder Description Priority Entered Acknowledged InitialedUS STAT 14:09 12/19/2020 14:45 Araceli,TRANSVAGINAL Tj Turner R.N.(NON OB) [place];(Oxygen?(No)) Reason for Study: left pelvic pain, 5.8 cm ovarian cyst on CT 8-84-44LMTQANJSPZ/IV/DRIP/FLUID ORDERSOrder Description Pr iority Entered Acknowledged InitialedNS IV 500 mL 14:12/19/2020 14:42 Araceli,Bolus: : Bolus 500 Tj Turner R.NAzulmL, then 150 mL/hr M.D.;(X1)Toradol 15 mg IVP 14:12/19/2020 14:41 Araceli,X1 dose: 15 mg Julianerin, Tj Ho R.N.(NOW x1) M.D.;Ativan IVP 1 mg 14:12/19/2020 14:41 Araceli(HIGH ALERT Tj Turner RAzulNAzulMEDICATION) Tejas;GENERAL ORDERSOrder Description Priority Entered Acknowledged Initialed[Electronically signed by Georgia Charles R.N. (16:10 12/19/2020)][Electronically signed by Tj Turner M.D. (16:39 12/19/2020)][Electronically locked by Georgia Charles R.N. (16:10 12/19/2020)] Name Value Range Interpretation Code Description Data Rachel rce(s) Supporting Document(s) ID Date Data Source [id number] 12/19/2020 01:35:00 PM EDT [facility] 1 Medication Reconciliation Report [facility] Emergency Department [address] [place] [address] Phone #: ext- [phone] 12/19/2020 13:29 Patient: ZARIA CAR Sex: F : 1995 Age: 25yWeight: 72.5 kgHeight/Length: 67 in.BMI: 25.1ALLERGIES: No Known Drug AllergyThe patient's Home Medications are listed below:NONE.The source(s) of the original Home Medication information:patientThe following Medications were given to the patient in the Emergency Department:Ativan [IVP] IVP 1 mg, administered: 14:41 12/19/2020Toradol [IVP] IVP 15 mg, administered: 14:41 12/19/2020NS [IV] IV Fluids bolus 500 mL over 1 hour(s), administered: 14:42 12/19/2020The following Medications were prescribed to the patient:Naprosyn 500 mg tablet Take 1 tablet twice a day as needed for pain for 7 days -- take with food.Dispense 14 tablet. Refills: 0. Substitution permitted.Pharmacy - [id number] - [address], [place] [id number]. . -- Tj Turner M.D. Name Value Range Interpretation Code Description Data Rachel rce(s) Supporting Document(s) ID Date Data Source [id number] 12/19/2020 01:35:00 PM EDT [facility] 1 Medication Administration Record [facility] Emergency Department [address] [place] [address] Phone #: ext- [phone] 12/19/2020 13:29 Patient: ZARIA CAR Sex: F : 1995 Age: 25yWeight: 72.5 kgHeight/Length: 67 inBMI: 25.1ALLERGIES: No Known Drug Allergy Date/Time Medication Administered Medication OrderedStart NS [IV] NS IV 500 mL Bolus: : Bolus 02907:42 12/19/2020 Dose: IV Fluids mL, then 150 mL/hr (X1)Georgia Charles R.N. Bolus: 500 mL over 1 hour(s)---- Dispensed: 500 mL bagStop Site: #1 left AC15:58 1LoftGeorgia sandoval R.N.Given TORADOL [IVP] (KETOROLAC Toradol 15 mg IVP X1 dose: 15 mg14:41 12/19/2020 TROMETHAMINE) (NOW x1)Georgia Charles R.N. Dose: 15 mg IVP Site: #1 left ACGiven ATIVAN [IVP] (LORAZEPAM) Ativan IVP 1 mg (HIGH ALERT14:41 12/19/2020 Dose: 1 mg IVP MEDICATION)Georgia Charles R.N. Site: #1 left AC Name Value Range Interpretation Code Description Data Rachel rce(s) Supporting Document(s) ID Date Data Source [id number] 12/19/2020 01:35:00 PM EDT [facility] 1 General Instructions [facility] Emergency Department [address] [place] [address] Phone #: ext- [phone] 12/19/2020 13:29 Patient: ZARIA CAR Sex: F : 1995 Age: 25ySingle left ovarian cyst (complex, hemorrhagic vs. endometrioma). No torsion of ovary.INSTRUCTIONS Drink plenty of fluids. Do not smoke. No alcohol. (YOU HAVE AN APPOINTMENT TOMORROW AT [facility] AT 13:[address] JOHNSON).Warnings: Further evaluation is necessary in order to conduct further tests ([facility] ON 12/20 AT 13:05HRS). It is very important to follow up with a healthcare provider.GENERAL WARNINGS: Return or contact your physician immediately if your condition worsens orchanges unexpectedly, if not improving as expected, or if other problems arise. Specifically return if pain,vomiting, bleeding, breathing difficulty or fever greater than 102 degrees F and not controlled byacetaminophen or ibuprofen.Your Current Medications: .No home medication.Prescription Medications:Naprosyn 500 mg tablet Take 1 tablet twice a day as needed for pain for 7 days -- take with food.Dispense 14 tablet. Refills: 0. Substitution permitted.[id number] - [address], [place] [id number]. FaxNumber: [phone].Follow-up:Return to the emergency department as needed. Follow up with an funnel setter tomorrow as scheduled.Reason for referral: evaluation and treatment. Summary of care provided to patient via paper.Understanding of the discharge instructions verbalized by patient. Expected course of illness, dischargeinstructions, activity level, diet, prescriptions x1, follow-up appointment and risks and benefits of treatmentreviewed with patient and understanding verbalized. Agrees to plan of care.Follow-up with: [facility], , , [address] [place] [address], [facility] Follow up tomorrow as scheduled. Reason for referral: evaluation and treatment. Summary of careprovided to patient via paper. 2 General Instructions [facility] Emergency Department [address] [place] [address] Phone #: ext- [phone] 12/19/2020 13:29 Patient: ZARIA CAR Sex: F : 1995 Age: 25y ADDITIONAL INFORMATIONOvarian CystsThe ovaries are two small organs located on each side of a woman's uterus (womb). They are part ofthe female reproductive system. Ovarian cysts are sacs filled with fluid or tissue that form on or insidethe ovaries.Ovarian cysts are common in women, especially during childbearing years. There are different typesof cysts. Most are harmless (benign) and go away on their own. They often cause no symptoms. Ifsymptoms do occur, they can include mild pain or pressure in the lower belly (abdomen).Cysts that are large or break (rupture) may cause more severe pain and symptoms. In these cases,you may need hospital care or treatment such as surgery. You may need more extensive treatment ifa cyst causes an ovary to twist (called torsion) or if your doctor suspects your cyst is cancerous. Keepin mind that most cysts are not cancerous, however.General care To help relieve pain, your healthcare provider may recommend using gait-tah-azqczbg pain medicine. If needed, your provide may prescribe stronger pain medicine. Depending on the type of cyst you have, your healthcare provider may advise taking control pills. These help shrink cysts in certain cases. They may also help prevent new cysts from forming. Be sure to take these medicines as directed if they are prescribed. Your healthcare provider may advise you to watch your symptoms over time to see if they go away or worsen. Regular ultrasound tests may also be advised. These can help check if a cyst 3 General Instructions [facility] Department [address] [place] [address] Phone #: ext- [phone] 12/19/2020 13:29 Patient: ZARIA CAR Sex: F : 1995 Age: 25y goes away or grows in size.Follow-up careFollow up with your healthcare provider, or as advised.When to seek medical adviceCall your healthcare provider right away if any of these occur: Pain worsens or fails to get better with home treatment Fever of 100.4F (38C) or higher (or other fever amount directed by your healthcare provider) Nausea and vomiting Weakness, dizziness, or fainting Abnormal vaginal bleeding [phone] [employer]. [address] [place] [address], [place] [address]. All rights reserved. This information is not intended as asubstitute for professional medical care. Always follow your healthcare professional's instructions. You have been given the following additional information: Ovaria n Cyst(Electronically signed by Tj Turner M.D. 12/19/2020 16:39) Name Value Range Interpretation Code Description Data Rachel rce(s) Supporting Document(s) ID Date Data Source [id number] 12/19/2020 01:35:00 PM EDT [facility] 1 Clinical Report - Nurses [facility] Emergency Department [address] [place] [address] Phone #: ext- [phone] 12/19/2020 13:29 Patient: ZARIA CAR Sex: F : 1995 Age: 25yTRIAGEArrived by private vehicle. Historian: patient. Accompanied by family. ( presents with c/o abd. pain, ptwas just seen here lastnight and instructed to call EXHIBITS MANAGER and to come back if no relief with meds. calledclinic and soonest appt 01/05).Triage time: 13:40 12/19/2020. Acuity: LEVEL 4.Chief Complaint: ABDOMINAL PAIN.Alert. 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 Seen within the last 24 hours at this facility; seen for similar symptoms.SEPSIS SCREEN: SIRS SCREEN NEGATIVE. SEPSIS SCREEN NEGATIVE. No suspected or confirmedsigns of infection present. --13:55 12/19/20 Shaylee Le RN13:49 12/19/20. BP: 112/66. MAP: 81. HR: 79. RR: 21. O2 saturation: 100%. Temp: 98.5 F. Pain levelnow: 10/18. --13:55 12/19/20 Shaylee Le RN.Weight: 72.5 kg stated. Height/Length: 67 inches Per Patient. BMI: 25.1. --13:52 12/19/20 Shaylee Le RN.MedicationsNone. --13:53 12/19/20 Shaylee Le, VAIBHAV.AllergiesNo Known Drug Allergy. --13:53 12/19/20 Shaylee Le RN.PROBLEMS:Ectopic .Ovarian Cyst.Migraine Headache. --13:53 12/19/20 Shaylee Le RN.Medication/allergy information source: the patient and patient's previous visit record. --13:55 12/19/20Shaylee Le RN.ADDITIONAL SURGERIES:Cholecystectomy.. 2 Clinical Report - Nurses [facility] Emergency Department [address] [place] [address] Phone #: ext- [phone] 12/19/2020 13:29 Patient: ZARIA CAR Sex: F : 1995 Age: 25y Exploratory laparotomy. Salpingectomy. --13:53 12/19/20 Shaylee Le RN. History PAST MEDICAL HX: Last normal menstrual period- 11/25. SOCIAL HX: Light tobacco smoker- less than 1/2 a pack per day. Occasional alcohol use. No drug use. No recent travel. No known contact with a sick individual. She was offered HIV testing but declined and hepatitis C testing but declined. She has not traveled outside the [place] Infectious disease exposure: No infectious disease exposure. SELF HARM ASSESSMENT: Self harm assessment was performed. The patient answered "no" to the question(s) "Have you recently felt down, depressed, or hopeless?". ABUSE ASSESSMENT: No report of abuse. NUTRITIONAL RISK ASSESSMENT: The nutritional risk assessment revealed no deficiencies. FUNCTIONAL ASSESSMENT: Functional assessment: no impairments noted. LEARNING NEEDS ASSESSMENT: The learning needs assessment revealed no barriers. FALL RISK ASSESSMENT: Fall risk assessment completed. No risk factors identified. SKIN INTEGRITY ASSESSMENT: Skin integrity risk assessment completed. No skin integrity risk identified. --13:55 12/19/20 Shaylee Le RN.PHYSICAL ASSESSMENTAmbulatory to room.GENERAL / NEURO / PSYCH: Alert. Oriented X 4. Appears in no acute distress.HEENT: Mucous membranes are pink.RESPIRATORY: Respirations not labored.CVS: Capillary refill less than 2 seconds.GI / : The patient has had nausea. Abdominal tenderness. Bowel sounds within normal limits.SKIN: Skin is warm and dry. --13:55 12/19/20 Shaylee Le RN.NURSING PROGRESS NOTESPatient gowned. Reassurance given. Two patient identifiers checked. Bed placed in lowest position.Brakes of bed on. Patient ready for evaluation. --13:55 12/19/20 Shaylee Le RN 14:40 12/19/2020 Site #1 started via IV in the left antecubital space with an 20g angiocath, with aseptic technique and good blood return; one attempt. Saline lock flushed with 10 mL saline. --14:40 12/19/20 Georgia Charles R.N. 14:41 12/19/2020 Ativan (LORazepam) IVP 1 mg given over 2 minute(s) via site #1. Allergies verified and 3 Clinical Report - Nurses [facility] Emergency Department [address] [place] [address] Phone #: ext- [phone] 12/19/2020 13:29 Patient: ZARIA CAR Sex: F : 1995 Age: 25y confirmed 5 rights. IV patency established. IV site checked: no pain, redness, or swelling. IV flushed thoroughly pre- and post-medication administration. IVP given by RN. Information reviewed with patient including signs of allergic reaction, precautions and sedative warning. Verbalizes understanding. --14:41 12/19/20 Georgia Charles R.N. 14:41 12/19/2020 Toradol (Ketorolac Tromethamine) IVP 15 mg given over 1 minute(s) via site #1. Allergies verified and confirmed 5 rights. IV patency established. IV site checked: no pain, redness, or swelling. IV flushed thoroughly pre- and post-medication administration. IVP given by RN. Information reviewed with patient including reason for taking this medication, signs of allergic reaction and precautions. Verbalizes understanding. --14:41 12/19/20 Georgia Charles R.N. 14:42 12/19/2020 Started bag #1 500 mL IV Fluids NS; bolus of 500 mL over 1 hour(s) v ia site #1 via IV pump. Allergies verified and confirmed 5 rights. IV patency established. IV site checked: no pain, redness, or swelling. IV flushed thoroughly pre- and post-medication administration. Information reviewed with patient including reason for taking this medication. Verbalizes understanding. --14:42 12/19/20 Georgia Charles R.N. Rounding: Pain: assessed pain level. Position: states comfortable. Proximity of possessions / care items: call light within easy reach. Plug ins: assured IV pump plugged in; checked status of equipment in use; located all cords, tubes, and lines to prevent fall hazard. Set expectations: advised patient of rounding protocol timing and asked if they needed anything else at this time. --14:43 12/19/20 Georgia Charles R.N. Patient transported to sonogram by wheelchair with IV. --14:45 12/19/20 Georgia Charles R.N. Patient returned from sonogram by wheelchair. --15:10 12/19/20 Georgia Charles R.N. Reassessment after medication administered. Pain still present. She is calm and resting quietly. Overall patient status is the same. --15:10 12/19/20 Georgia Charles R.N. 15:10 12/19/20. BP: 123/69. MAP: 87. HR: 86. O2 saturation: 100%. --15:11 12/19/20 Travis Damon 16:00 12/19/20. BP: 125/71. MAP: 89. HR: 84. O2 saturation: 100%. --16:00 12/19/20 Travis Damon 15:58 12/19/2020 IV Fluids NS via IV site #1 Discontinued: bag #1 infused upon discharge. Total amount infused: 500 mL. --16:08 12/19/20 Georgia Charles R.N.DISPOSITION / DISCHARGE 16:04 12/19/20. BP: 125/71. MAP: 89. HR: 84. O2 saturation: 100%. Temp: 98.3 F. --16:04 12/19/20 Travis Damon 16:09 12/19/2020 Site #1 removed upon discharge. Catheter intact. Pressure dressing and bandaid applied. --16:09 12/19/20 Georgia Charles R.N. 4 Clinical Report - Nurses [facility] Emergency Department [address] [place] [address] Phone #: ext- [phone] 12/19/2020 13:29 [id number] Sex: F : 1995 Age: 25y Condition at departure: improved. No learning barriers present. Reviewed warnings. Reviewed medication(s). Treatments reviewed. Reviewed referrals. Written instructions provided in Maltese. The patient was discharged by the physician. She was discharged home. She left ambulatory and via private vehicle. Heel Slugger driving. --16:09 12/19/20 Georgia Charles R.N. 16:09 12/19/20. Pain level now: 0/10. --16:10 12/19/20 Georgia Charles R.N.Locked/Released at 12/19/2020 16:10 by Georgia Charles R.N. Name Value Range Interpretation Code Description Data Rachel e(s) Supporting Document(s) ID Date Data Source [id number] 12/19/2020 01:35:00 PM EDT [facility] 1 Clinical Report - Physicians/Mid Levels [facility] Emergency Department [address] [place] [address] Phone #: ext- [phone] 12/19/2020 13:29 Patient: ZARIA CAR Sex: F : 1995 Age: 25y Time Seen: 13:34 12/19/2020; initial patient contact. Arrived- By private vehicle. Historian- patient. Disposition decision: 15:56 12/19/2020.HISTORY OF PRESENT ILLNESS Chief Complaint: PELVIC PAIN. This started yesterday and still present. The symptoms are described as severe. Modifying factors- worsened by movement. Not relieved by anything. The patient has had severe, intermittent, sharp left-sided pelvic pain, described as "pain". No vaginal pain, low back pain, flank pain, abnormal bleeding or vaginal discharge. No pain with urination, urinary frequency, urgency of urination or hematuria. Denies current . Similar symptoms previously. Patient has had similar symptoms occasionally. Recent medical care: The patient was seen recently at this facility. ( seen here last evening, d/c at 4 am today, was dxed w left 4x5.8 cm ovarian cyst on CTAP, no US done, was told to f/u w [facility], called today and couldn't get in until 01/05 so came back for pain control).REVIEW OF SYSTEMSNo nausea, vomiting, diarrhea, black stools or anorexia. No eye discomfort, sore throat, cough, difficultybreathing or chest pain. No skin rash, enlarged lymph nodes or joint pain. All other systems reviewedand are negative.PAST HISTORYSee nurses notes. Problems: Ectopic . Ovarian Cyst. Migraine Headache. Additional Surgeries: Cholecystectomy. . Exploratory laparotomy. Salpingectomy. Medications: None. Allergies: 2 Clinical Report - Physicians/Mid Levels [facility] Emergency Department [address] [place] [address] Phone #: ext- [phone] 12/19/2020 13:29 Patient: ZARIA CAR Sex: F : 1995 Age: 25y No Known Drug Allergy.SOCIAL HISTORYLight tobacco smoker- less than 1/2 a pack per day. Occasional alcohol use. No drug use.ADDITIONAL NOTESThe nursing notes have been reviewed with agreement regarding the chief complaint, HPI, ROS, PMH andpatient medications and allergies.PHYSICAL EXAMVital Signs: 12/19/2020 13:49 BP: 112/66. MAP: 81. HR: 79. RR: 21. O2 saturation: 100%. Temp: 98.5 F.Pain level now: 10/18. Have been reviewed. Oxygen saturation normal.Appearance: Alert. Anxious.HEENT: Normal external inspection.ENT: Pharynx normal.Neck: Neck supple.CVS: Heart sounds normal.Respiratory: No respiratory distress. Painless inspiration. Breath sounds normal. Chest nontender.Abdomen: Soft. Mild tenderness in the left lower quadrant. No guarding or rebound tenderness. Bowelsounds normal. No organomegaly. No mass.Back: Normal external inspection. No CVA tenderness.Skin: Skin warm and dry. Normal skin color. No rash. Normal skin turgor.Extremities: Extremities nontender. No lower extremity edema.Neuro: Oriented X 3. Mood/affect normal. No motor deficit.LABS, X-RAYS, A ND EKGPelvic Sonogram: An ovarian cyst is present (5.5 x 4.5 x 4.4 cm, hemorrhagic vs. endometrioma). No freefluid. see report. Study type: transvaginal evaluation. The study was interpreted by the radiol ogist.Interpretation time: 15:29 12/19/2020.PROGRESS AND PROCEDURESCourse of Care: 14:16 12/19/20. ER records of last night were reviewed, will complete w pelvic US todayand treat her pain 15:50 12/19/20. TV Pelvic US results reviewed and confirm lt ov. hemorrhagic cyst vs endometrioma (not TOA, since workup yesterday was nml); pt doing markedly better; we got her an appt w [facility] in [place] tomorrow at 13:05 hrs; d/c instructions given, pt understands and agrees. Patient counseled in person regarding the patient's stable condition, test results, diagnosis and need for follow-up. Patient agrees with plan of care. Disposition: Condition: good and stable. Discharge decision based on the following: patient's condition is stable; patient's condition is improved; patient is ambulatory; patient is active; patient drinking fluids; patient eating; patient's pain is controlled; 3 Clinical Report - Physicians/Mid Levels [facility] Emergency Department [address] [place] [address] Phone #: ext [phone] 12/19/2020 13:29 Patient: ZARIA CAR Sex: F : 1995 Age: 25y patient's exam is improved; no seriously abnormal test results; improving condition on multiple repeat evaluations; social support is good; transportation is available; follow-up is available; clinical impression is consistent with outpatient treatment.CLINICAL IMPRESSION Single left ovarian cyst (complex, hemorrhagic vs. endometrioma). No torsion of ovary.INSTRUCTIONS Drink plenty of fluids. Do not smoke. No alcohol. (YOU HAVE AN APPOINTMENT TOMORROW AT [facility] AT 13:[address] JOHNSON). Warnings: Further evaluation is necessary in order to conduct further tests ([facility] ON 12/20 AT 13:05 HRS). It is very important to follow up with a healthcare provider. GENERAL WARNINGS: Return or contact your physician immediately if your condition worsens or change s unexpectedly, if not improving as expected, or if other problems arise. Specifically return if pain, vomiting, bleeding, breathing difficulty or fever greater than 102 degrees F and not controlled by acetaminophen or ibuprofen. Your Current Medications: . No home medication. Prescription Medications: Naprosyn 500 mg tablet Take 1 tablet twice a day as needed for pain for 7 days -- take with food. Dispense 14 tablet. Refills: 0. Substitution permitted. Pharmacy - [id number] - [address], [place] [id number]. . Follow-up: Return to the emergency department as needed. Follow up with an funnel setter tomorrow as scheduled. Reason for referral: evaluation and treatment. Summary of care provided to patient via paper. Understanding of the discharge instructions verbalized by patient. Expected course of illness, discharge instructions, activity level, diet, prescriptions x1, follow-up appointment and risks and benefits of treatment reviewed with patient and understanding verbalized. Agrees to plan of care. Follow-up with: [facility], , , [address], [place], [facility] Follow up tomorrow as scheduled. Reason for referral: evaluation and treatment. Summary of care provided to patient via paper. 4 Clinical Report - Physicians/Mid Levels [facility] Emergency Department [address] [place] [address] Phone #: ext- [phone] 12/19/2020 13:29 Patient: ZARIA CAR Sex: F : 1995 Age: 25y(Electronically signed by Tj Turner M.D. 12/19/2020 16:39) Name Value Range Interpretation Code Description Data Rachel rce(s) Supporting Document(s) ID Date Data Source [id number] 12/19/2020 09:06:00 [place] [address] PHONE: [phone] FAX: [phone] Name .................. : JOCELINE GARCIA Gopi Acct Number.................. : [id number] ROOM. ................. : VT-34 Number ................... : [id number] Stay type ............. : E/R Discharge Date......... ... : 12/19/20 Admit Date ......... : 12/18/20 Admit Phys .................... : ADDISON Date of ....... : 1995 Family Phys ................... : JOCELYNE VEGA Phone .................. : [phone] Age ................................ : 25 Film# .................. .:[id number] Sex ................................. : F Unsigned transcriptions are preliminary reports and do not represent a medical or legal document CT ABD & PELVIS W/ IV ONLY [id number] COMPLETE:12/19/20 04:47 ARLENE 45950 Reason(s): Abdominal Pain CT ABDOMEN AND PELVIS WITH IV CONTRAST INDICATION: Abdominal pain COMPARISON: 08 28 2020 IV CONTRAST: 75 cc Isovue-370 One or more of the following dose reduction techniques were utilized in effectively lowering the radiation dose for this examination: Automated Exposure Control, Adjustment of the mA and/or kV according to patient size, or Iterative reconstruction. FINDINGS: LUNG BASES: No pulmonary nodules or masses. No pleural effusions. LIVER/BILIARY: No liver lesions. Gallbladder is nonvisualized. Surgical clips in the gallbladder fossa. Bile ducts are not dilated. SPLEEN: Normal. PANCREAS: Normal. ADRENALS: Normal bilaterally. RIGHT KIDNEY: No stones, masses or hydronephrosis. LEFT KIDNEY: No stones, masses or hydronephrosis. : No abnormalities are seen in the urinary bladder. Uterus is unremarkable. Complex cyst left ovary 4.0 x 3.5 x 5.8 cm. This is water density centrally with moderate asymmetrical wall thickening along the lateral aspect of the lesion. No Page 1 of [address] [place] [address] PHONE: [phone] FAX: [phone] Name .................. : JOCELINE Nguyễn Acct Number.................. : [id number] ROOM. ................. : VT-34 Number ................... : [id number] Stay type ............. : E/R Discharge Date......... ... : 12/19/20 Admit Date ......... : 12/18/20 Admit Phys .................... : COONEYNORM Date of ....... : 1 Family Phys ................... : JOCELYNE VEGA Phone .................. : [phone] Age ................................ : 25 Film# .................. .:[id number] Sex ................................. : F Unsigned transcriptions are preliminary reports and do not represent a medical or legal document CT ABD & PELVIS W/ [place] ONLY [id number] COMPLETE:12/19/20 04:47 ARLENE 81161 Reason(s): Abdominal Pain nodularity. Moderately prominent enhancing blood vessels are seen in the adnexal regions bilaterally. BOWEL/GI: No bowel obstruction. No appendicitis, colitis, or diverticulitis. No free fluid, focal fluid collection or free air. Tiny umbilical hernia containing fat. NODES/RETROPERITONEUM: No adenopathy. No AAA. SKELETAL: Within normal limits. IMPRESSION: 1. Complex cyst left ovary measuring up to 5.8 cm. This was not seen on the prior exam. Differential diagnosis is broad and includes hemor rhagic cyst, endometrioma, cystic neoplasm, tubo-ovarian abscess. Recommend pelvic ultrasound. 2. Findings suggesting pelvic congestion syndrome. Preliminary report for this exam was provided by Ursula . Electronically Reviewed and Signed By Loyd Tavarez MD , 12/19/20 09:06, NÉSTOR Transcribe Initials: SSR, Transcribe Date: 12/19/20 08:55, Dictation Date: Copy for: EMERGENCY DEPT via modem Copy for: 710 MED REC DISCHARGED Page 2 of 2 Name Value Range Interpretation Code Description Data Rachel rce(s) Supporting Document(s) ID Date Data Source [id number] 12/19/2020 09:06:00 [place] [address] PHONE: [phone] FAX: [phone] Name .................. : JOCELINE GARCIA Gopi Acct Number.................. : [id number] ROOM. ................. : VT-34 Number ................... : [id number] Stay type ............. : E/R Discharge Date......... ... : 12/19/20 Admit Date ......... : 12/18/20 Admit Phys .................... : COENRIQUETA Date of ....... : 1995 Family Phys ................... : JOCELYNE VEGA Phone .................. : [phone] Age ................................ : 25 Film# .................. .:[id number] Sex ................................. : F Unsigned transcriptions are preliminary reports and do not represent a medical or legal document ABDOMEN MULTIPLE VIEW [id number] COMPLETE:12/19/20 04:47 ARLENE 59424 Reason(s): Abdominal Pain ABDOMINAL RADIOGRAPH SUPINE AND UPRIGHT AND PA CHEST VIEWS. HISTORY:, Pain COMPARISON: CT abdomen pelvis 08/28/2020 FINDINGS: Abdomen: The bowel gas pattern is unremarkable. No dilated loops of bowel or abnormal fluid levels are seen. No free air. No abnormal calcifications. Surgical clips right upper quadrant from cholecystectomy. Curvilinear metallic density is projected over the mid lumbar spine. This is likely ornamental jewelry. Chest: Cardiac and mediastinal contours are within normal limits. The lungs are clear. No pleural fluid. IMPRESSION: Abdomen: No acute disease. Chest: Negative study. Electronically Reviewed and Signed By Loyd Tavarez MD , 12/19/20 09:06, JWGaro Transcribe Initials: MARCUS, Transcribe Date: 12/19/20 08:53, Dictation Date: Page 1 of 2 [place] [address] PHONE: [phone] FAX: [phone] Name .................. : JOCELINE GARCIA Gopi Acct Number.................. : [id number] ROOM. ................. : VT-34 Number ................... : [id number] Stay type ............. : E/R Discharge Date......... ... : 12/19/20 Admit Date ......... : 12/18/20 Admit Phys .................... : COONEYNORM Date of ....... : 1995 Family Phys ................... : JOCELYNE GI Phone .................. : [phone] Age ................................ : 25 Film# .................. .:[id number] Sex ................................. : F Unsigned transcriptions are preliminary reports and do not represent a medical or legal document ABDOMEN MULTIPLE VIEW [id number] COMPLETE:12/19/20 04:47 ARLENE 31040 Reason(s): Abdominal Pain Copy for: EMERGENCY DEPT via modem Copy for: 710 MED REC DISCHARGED Page 2 of 2 Name Value Range Interpretation Code Description Data Rachel rce(s) Supporting Document(s) ID Date Data Source [id number] 12/18/2020 10:14:00 PM EDT [facility] 1 OrderSheet [facility] Emergency Department [address] [place] [address] Phone #: ext- [phone] 12/18/2020 22:21 Patient: ZARIA CAR Sex: F : 1995 Age: 25yWEIGHT:72.5 kg HEIGHT:67 inches BMI:25.1ALLERGIES: No Known Drug AllergyCHIEF COMPLAINT: abdominal painDIAGNOSIS: Cyst of ovaryLAB ORDERSOrder Description Priority Entered Acknowledged InitialedUrinalysis (Clean STAT 22:49 12/18/2020 Ack'd: 22:50 22:51 Lynn Guerrero [facility]) Jenny Apple MD; Vania GuerreroCSanti Urine Qual STAT 22:49 12/18/2020 Ack'd: 22:50 22:51 Oswald Guerrero Norma MD; Vania GuerreroBC w Diff STAT 23:28 12/18/2020 23:38 Oswald Guerrero Norma MD; KatelynCMP STAT 23:28 12/18/2020 23:38 Oswald Guerrero Norma MD; KatelynLactic Acid STAT 23:28 12/18/2020 23:38 Oswald Guerrero Norma MD; KatelynLipase STAT 23:28 12/18/2020 23:38 Oswald Guerrero Norma MD; KatelynDIAGNOSTIC STUDY ORDERSOrder Description Priority Entered Acknowledged InitialedAbdomen Multiview STAT 23:45 12/18/2020 Ack'd: 23:45 23:54 Yolanda,(Oxygen?(No)) Jenny Apple MD; Vania Guerrero Reason for Study: Abdominal PainCT Abd PEL W/ IV STAT 00:21 12/19/2020 Ack'd: 00:22 00:32 Yolanda,Contrast Only Jenny Apple MD; Vania Guerrero(Oxygen?(No))(IV?(Yes)) Reason for Study: Abdominal PainMEDICATION/IV/DRIP/FLUID ORDERSOrder Description Priority Entered Acknowledged InitialedIV NS 1000 mL 23:28 12/18/2020 Ack'd: 23:38 23:43 Yolanda,Bolus : Bolus 1000 Jenny Apple MD; Vania Guerrero 2 OrderSheet [facility] Emergency Department [address] [place] [address] Phone #: ext- [phone] 12/18/2020 22:21 Patient: ZARIA CAR Sex: F : 1995 Age: 25ymL (X1)Zofran IVP 4 mg 23:28 12/18/2020 Ack'd: 23:38 23:44 Oswald Guerrero Norma MD; Vania GuerreronAcetaminophen IV 00:21 12/19/2020 Ack'd: 00:28 00:41 Yolanda,1000 mg (NOW x1, Jenny Apple MD; Vania GuerreronInfuse over 15minutes)Toradol IVP 30 mg 00:21 12/19/2020 Ack'd: 00:28 00:32 Yolanda,(NOW x1) Jenny Apple MD; Vania GuerreronGENERAL ORDERSOrder Description Priority Entered Acknowledged Initialed[Electronically signed by Jenny Apple MD (03:56 12/19/2020)][ Electronically signed by Vania Guerrero (04:00 12/19/2020)][Electronically locked by Vania Guerrero (04:00 12/19/2020)] Name Value Range Interpretation Code Description Data Rachel rce(s) Supporting Document(s) ID Date Data Source [id number] 12/18/2020 10:14:00 PM EDT [facility] 1 Medication Reconciliation Report [facility] Emergency Department [address] [place] [address] Phone #: ext- [phone] 12/18/2020 22:21 Patient: ZARIA CAR Sex: F : 1995 Age: 25yWeight: 72.5 kgHeight/Length: 67 in.BMI: 25.1ALLERGIES: No Known Drug AllergyThe patient's Home Medications are listed below:NONE.The source(s) of the original Home Medication information:Not obtained.The following Medications were given to the patient in the Emergency Department:IV NS IV Fluids bolus 1000 mL over 40 minute(s), administered: 23:43 12/18/2020Zofran [IVP] IVP 4 mg, administered: 23:44 12/18/2020Toradol [IVP] IVP 30 mg, administered: 00:32 12/19/2020Ofirmev IV bolus 0, then 1 gm, administered: 00:41 12/19/2020The following Medications were prescribed to the patient:None. Name Value Range Interpretation Code Description Data Rachel rce(s) Supporting Document(s) ID Date Data Source [id number] 12/18/2020 10:14:00 PM EDT [facility] 1 Medication Administration Record [facility] Emergency Department [address] [place] [address] Phone #: [phone]- [phone] 12/18/2020 22:21 Patient: ZARIA CAR Sex: F : 1995 Age: 25yWeight: 72.5 kgHeight/Length: 67 inBMI: 25.1ALLERGIES: No Known Drug Allergy Date/Time Medication Administered Medication OrderedStart IV NS IV NS 1000 mL Bolus : Bolus 405174:43 12/18/2020 Dose: IV Fluids mL (X1)Vania Guerrero, Bolus: 1000 mL over 40 minute(s)---- Dispensed: 1000 mL bagStop Site: #1 left AC00:42 1BVania kirkland,Given ZOFRAN [IVP] (ONDANSETRON HCL) Zofran IVP 4 mg23:44 12/18/2020 Dose: 4 mg IVPBVania kirkland, Site: #1 left ACStart Ofirmev * Acetaminophen IV 1000 mg (NOW00:41 12/19/2020 Dose: 1 gm * IV x1, Infuse over 15 minutes)Vnaia Guerrero,----Stop01:15 12/19/2020eyVania kothari,Given TORADOL [IVP] (KETOROLAC Toradol IVP 30 mg (NOW x1)00:32 12/19/2020 TROMETHAMINE)Vania Guerrero, Dose: 30 mg IVP Site: #1 left AC Name Value Range Interpretation Code Description Data Rachel rce(s) Supporting Document(s) ID Date Data Source [id number] 12/18/2020 10:14:00 PM EDT [facility] 1 General Instructions [facility] Emergency Department [address] [place] [address] Phone #: ext- [phone] 12/18/2020 22:21 Patient: ZARIA CAR Sex: F : 1995 Age: 25ySingle left ovarian cyst.pelvic congestion.INSTRUCTIONSNo strenuous activity. Do not work for three days.Drink plenty of fluids.(Please also follow up with your primary care physician. return if worse or any new symptoms. taketylenol andmotrin for pain. please call your legal officer and be seen in the next 2 days. if yoursymptoms do not improve, please return for an ultrasound of your pelvis and ovarian cyst.).Warnings: Further evaluation is necessary.GENERAL WAR NINGS: Return or contact your physician immediately if your condition worsens orchanges unexpectedly, if not improving as expected, or if other problems arise.Your Current Medications: .No home medication.Follow-up:Follow up with your doctor in two days even if well. Call for an appointment. Reason for referral: evaluation.Summary of care provided to patient via paper.Understanding of the discharge instructions verbalized by patient. ADDITIONAL INFORMATIONOvarian Cysts 2 General Instructions [facility] Emergency Department [address] [place] [address] Phone #: ext- [phone] 12/18/2020 22:21 Patient: ZARIA CAR Sex: F : 1995 Age: 25yThe ovaries are two small organs located on each side of a woman's uterus (womb). They are part ofthe female reproductive system. Ovarian cysts are sacs filled with fluid or tissue that form on or insidethe ovaries.Ovarian cysts are common in women, especially during childbearing years. There are different typesof cysts. Most are harmless (benign) and go away on their own. They often cause no symptoms. Ifsymptoms do occur, they can include mild pain or pressure in the lower belly (abdomen).Cysts that are large or break (rupture) may cause more severe pain and symptoms. In these cases,you may need hospital care or treatment such as surgery. You may need more extensive treatment ifa cyst causes an ovary to twist (called torsion) or if your doctor suspects your cyst is cancerous. Keepin mind that most cysts are not cancerous, however.General care To help relieve pain, your healthcare provider may recommend using [id number] pain medicine. If needed, your provide may prescribe stronger pain medicine. Depending on the type of cyst you have, your healthcare provider may advise taking control pills. These help shrink cysts in certain cases. They may also help prevent new cysts from forming. Be sure to take these medicines as directed if they are prescribed. Your healthcare provider may advise you to watch your symptoms over time to see if they go away or worsen. Regular ultrasound tests may also be advised. These can help check if a cyst goes away or grows in size.Follow-up careFollow up with your healthcare provider, or as advised. 3 General Instructions [facility] Emergency Department [address] [place] [address] Phone #: ext- [phone] 12/18/2020 22:21 Patient: ZARIA CAR Sex: F : 1995 Age: 25yWhen to seek medical adviceCall your healthcare provider right away if any of these occur: Pain worsens or fails to get better with home treatment Fever of 100.4F (38C) or higher (or other fever amount directed by your healthcare provider) Nausea and vomiting Weakness, dizziness, or fainting Abnormal vaginal bleeding [id number] [employer] [place] [address]. All rights reserved. This information is not intended as asubstitute for professional medical care. Always follow your healthcare professional's instructions. You have been given the following additional information: Ovarian Cyst No strenuous activity. Do not work for three days.(Electronically signed by Jenny Apple MD 12/19/2020 03:56) Name Value Range Interpretation Code Description Data Rachel rce(s) Supporting Document(s) ID Date Data Source [id number] 12/18/2020 10:14:00 PM EDT [facility] 1 Clinical Report - Nurses [facility] Emergency Department [address] [place] [address] Phone #: ext- [phone] 12/18/2020 22:21 Patient: ZARIA CAR Sex: F : 1995 Age: 25yTRIAGEArrived by private vehicle. Historian: patient. Unaccompanied.Acuity: LEVEL 3.Chief Complaint: ABDOMINAL PAIN and NAUSEA.Alert. No acute distress.This started today. ( Patient states around 1500 today she started having cramping in her lower centerabdomen. States the pain has continued and become more of a stabbing pain. Patient denies diarrhea orvomiting. States her bowel movements have been regular, last one was this morning.). 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 --22:47 12/18/20 Rosie Guerrero2:42 12/18/20. BP: 123/74. HR: 88. RR: 16. O2 saturation: 100%. Temp: 98.1 F. Pain level now 12/18.--22:47 12/18/20 Vania Guerrero.Weight: 72.5 kg. Height/Length: 67 inches. BMI: 25.1. --22:41 12/18/20 Vania Guerrero.MedicationsNone. --22:44 12/18/20 Vania Guerrero.AllergiesNo Known Drug Allergy. --22:44 12/18/20 Tanja Guerrero.PROBLEMS:Diarrhea.Abrasion(s).Abdominal Pain.Ectopic .Viral Disease.Ovarian Cyst.Migraine Headache. --22:44 12/18/20 Vania Guerrero.ADDITIONAL SURGERIES:Cholecystectomy..Exploratory l aparotomy.Salpingectomy. --22:44 12/18/20 Vania Guerrero. 2 Clinical Report - Nurses [facility] Emergency Department [address] [place] [address] Phone #: ext- [phone] 12/18/2020 22:21 Patient: ZARIA CAR Sex: F : 1995 Age: 25y History PAST MEDICAL HX: Last normal menstrual period- November 25. SOCIAL HX: Heavy tobacco smoker- less than 1 pack per day. Occasional alcohol use. No drug use. No recent travel. No known contact with a sick individual. She was offered HIV testing but declined. Patient education was provided. She was offered hepatitis C testing but declined. Patient education was provided. She has not traveled outside the [place] Infectious disease exposure: No infectious disease exposure. The patient was not exposed to Coronavirus. Patient is not a known carrier of tuberculosis, hepatitis, HIV, MRSA or VRE. Patient is not a known carrier of CRE. SELF HARM ASSESSMENT: Self harm assessment was performed. The patient answered "no" to the question(s) "Have you recently felt down, depressed, or hopeless?" and "Do you have thoughts of harming or killing yourself?". ABUSE ASSESSMENT: Abuse assessment. The patient had positive responses to the question(s) "Do you feel safe in your home?" and "Are you afraid to go home?". Abuse denied. No suspicion of abuse. No report of abuse. NUTRITIONAL RISK ASSESSMENT: The nutritional risk assessment revealed no deficiencies. FUNCTIONAL ASSESSMENT: Functional assessment: no impairments noted. LEARNING NEEDS ASSESSMENT: The learning needs assessment revealed no barriers. FALL RISK ASSESSMENT: Fall risk assessment completed. No risk factors identified. SKIN INTEGRITY ASSESSMENT: Skin integrity risk assessment completed. No skin integrity risk identified. --22:47 12/18/20 Vania Guerrero. Interventions Identification band on patient. --22:47 12/18/20 Vania Guerrero.PHYSICAL ASSESSMENTAmbulatory to room.GENERAL / NEURO / PSYCH: Alert. Oriented X 4. Appears in no acute distress.HEENT: Mucous membranes are pink.RESPIRATORY: Respirations not labored. Breath sounds within normal limits.CVS: Normal sinus rhythm noted. Capillary refill less than 2 seconds.GI / : Abdomen soft. Abdominal tenderness in the periumbilical area, suprapubic area and lowerabdomen. Bowel sounds within normal limits. No rebound tenderness.SKIN: Skin is warm and dry. --22:49 12/18/20 Vania Guerrero.NURSING PROGRESS NOTES 3 Clinical Report - Nurses [facility] Emergency Department [address] [place] [address] Phone #: ext- [phone] 12/18/2020 22:21 Patient: ZARIA CAR Sex: F : 1995 Age: 25yPatient gowned. Reassurance given. Two patient identifiers checked. Call light placed in reach. Siderails up x 2. Bed placed in lowest position. Brakes of bed on. Patient ready for evaluation. --22:4712/18/20 Tanja GuerreronReassurance given.Rounding: Pain: assessed pain level. Position: states comfortable. Personal care / toileting: denies toiletingneeds. Proximity of possessions / care items: call light within easy reach. --23:18 12/18/20 Rosie Guerrero3:43 12/18/2020 Site #1 started via IV in the left antecubital space with an 20g angiocath, with aseptictechnique and good blood return; one attempt. Blood drawn: rainbow set. Saline lock flushed with saline.--23:43 12/18/20 Rosie Guerrero3:43 12/18/2020 Started bag #1 1000 mL IV Fluids IV NS; bolus of 1000 mL over 40 minute(s) via site #1via IV pump. Allergies verified and confirmed 5 rights. IV patency established. IV site checked: no pain,redness, or swelling. IV flushed thoroughly pre- and post-medication administration. Information reviewedwith patient including reason for taking this medication, signs of allergic reaction and precautions.Verbalizes understanding. --23:43 12/18/20 Rosie Guerrero3:44 12/18/2020 Zofran (Ondansetron HCl) IVP 4 mg given over 2 minute(s) via site #1. Allergies verifiedand confirmed 5 rights. IV patency established. IV site checked: no pain, redness, or swelling. IV flushedthoroughly pre- and post-medication administration. IVP given by RN. Information reviewed with patientincluding reason for taking this medication, signs of allergic reaction and precautions. Verbalizesunderstanding. --23:44 12/18/20 Vania Guerrero00:32 12/19/2020 Toradol (Ketorolac Tromethamine) IVP 30 mg given over 2 minute(s) via site #1.Allergies verified and confirmed 5 rights. IV patency established. IV site checked: no pain, redness, orswelling. IV flushed thoroughly pre- and post-medication administration. IVP given by RN. Informationreviewed with patient including reason for taking this medication, signs of allergic reaction and precautions.Verbalizes understanding. --00:32 12/19/20 Zoya Guerrero transported to [place] by wheelchair with mask and tech. --00:32 12/19/20 Vania Guerrero00:41 12/19/2020 Ofirmev * IV 1 gm --00:41 12/19/20 Vania Guerrero00:42 12/19/2020 IV Fluids IV NS via IV site #1 Discontinued: bag #1 infused. Total amount infused: 1000mL. IV patency e stablished. IV site checked: no pain, redness, or swelling. IV flushed thoroughly. --00: Zoya Guerrero returned from [place] by wheelchair with mask and tech. --00:42 12/19/20 Vania Guerrero01:28 12/19/20. BP: 118/68. HR: 70. RR: 16. O2 saturation: 99%. Pain level now 08/18. --01:12/19/20Vania Guerrero 4 Clinical Report - Nurses [facility] Emergency Department [address] [place] [address] Phone #: ext- [phone] 12/18/2020 22:21 Patient: ZARIA CAR Sex: F : 1995 Age: 25y Reassurance given. Rounding: Pain: assessed pain level. Position: states comfortable. Personal care / toileting: denies toileting needs. Proximity of possessions / care items: call light within easy reach. Plug ins: assured IV pump plugged in; checked status of equipment in use; located all cords, tubes, and lines to prevent fall hazard. --01:28 12/19/20 Vania Guerrero 02:25 12/19/2020 BP: 109/70. HR: 68. RR: 16. O2 saturation: 100%. Temp: 98.1 F. Pain level now 08/18. --02:40 12/19/20 Vania Guerrero 01:15 12/19/2020 Ofirmev IV Discontinued: completed. Total amount infused: 100 mL. IV patency established. IV site checked: no pain, redness, or swelling. IV flushed thoroughly. --03:03 12/19/20 Vania Guerrero late entry - 02:25 12/19/20. Reassurance given. Rounding: Pain: assessed pain level. Position: states comfortable. Personal care / toileting: denies toileting needs. Proximity of possessions / care items: call light within easy reach. --02:40 12/19/20 Vania Guerrero.DISPOSITION / DISCHARGE 03:59 12/19/2020 Site #1 removed upon discharge. Catheter intact. Bandaid applied. --03:59 12/19/20 Vania Guerrero Departure time: 04:00 12/19/2020. Condi tion at departure: stable. No learning barriers present. Discharge instructions provided and reviewed with the patient. Reviewed warnings. Reviewed medication(s). Treatments reviewed. Reviewed referrals. Patient verbalized understanding. Written instructions provided in Maltese. The patient was discharged by the physician. She was discharged home and unaccompanied at time of discharge. She left ambulatory and via private vehicle. Patient driving. --04:00 12/19/20 Vania Guerrero 03:59 12/19/20. BP: 108/64. HR: 71. RR: 16. O2 saturation: 99%. Temp: 97.7 F. Pain level now 06/20. --04:00 12/19/20 Gee Guerrero.Locked/Released at 12/19/2020 04:00 by Vania Guerrero Name Value Range Interpretation Code Description Data Rachel rce(s) Supporting Document(s) ID Date Data Source [id number] 12/18/2020 10:14:00 PM EDT [facility] 1 Clinical Report - Physicians/Mid Levels [facility] Emergency Department [address] [place] [address] Phone #: ext- [phone] 12/18/2020 22:21 Patient: ZARIA CAR Sex: F : 1995 Age: 25y Arrived- By private vehicle. Historian- patient.HISTORY OF PRESENT ILLNESS Chief Complaint: ABDOMINAL PAIN. It is described as cramping and it is described as located in the lower abdomen. This started today and is still present. At its maximum, severity described as mild. When seen in the E.D., severity described as mild. No nausea, loss of appetite, vomiting or diarrhea. (This started today. ( Patient states around 1500 today she started having cramping in her lower center abdomen. States the pain has continued and become more of a stabbing pain. Patient denies diarrhea or vomiting. States her bowel movements have been regular, last one was this morning.). Last oral intake by patient was dinner (Chicken tenders and macaroni and cheese). Similar symptoms previously. Recent medical care: Not recently seen/assessed.REVIEW OF SYSTEMSNo constipation, black stools, hematemesis or difficulty with urination or urination. No pain with urination,urinary frequency or urinary frequency, bloody stools or fever. No headache, sore throat or throat orblurred vision. No chest pain or pain, difficulty breathing, cough or joint pain. No skin rash or rash, chillsor back pain or pain. No chills, fever, eye irritation, ear drainage or nasal congestion. No cough, difficultybreathing, diarrhea, nausea or vomiting. No hematuria, headache, seizure or easy bruising. Deniescurrent . The patient has had abdominal pain but not had weight loss.PAST HISTORYSee nurses notes. Problems: Abdominal Pain. Ovarian Cyst. Additional Surgeries: Cholecystectomy. . Exploratory laparotomy. Salpingectomy. Medications: None. Allergies: 2 Clinical Report - Physicians/Mid Levels [facility] Emergency Department [address] [place], [place] [id number] Phone #: ext- [phone] 12/18/2020 22:21 Patient: ZARIA CAR Sex: F : 1995 Age: 25y No Known Drug Allergy.SOCIAL HISTORYNo drug use.ADDITIONAL NOTESThe nursing notes have been reviewed.PHYSICAL EXAMVital Signs: 12/19/2020 02:25 BP: 109/70. MAP: 83. HR: 68. RR: 16. O2 saturation: 100%. Temp: 98.1 F.12/19/2020 01:28 BP: 118/68. MAP: 84. HR: 70. RR: 16. O2 saturation: 99%.12/18/2020 22:42 BP: 123/74. MAP: 90. HR: 88. RR: 16. O2 saturation: 100%. Temp: 98.1 F. Have beenreviewed and appear to be correct. Blood pressure normal. Mean arterial pressure- normal. Heart ratenormal. Respiratory rate normal. Temperature normal. Oxygen saturation normal.Appearance: Alert. Oriented X3. No acute distress.Eyes: Pupils equal, round and reactive to light. Eyes normal inspection.ENT: Nose normal. Pharynx normal.Neck: Normal inspection. Neck supple.CVS: Normal heart rate. Heart sounds normal. Pulses normal.Respiratory: No respiratory distress. Painless inspiration. Breath sounds normal. Chest nontender.Abdomen: Soft. Mild tenderness in the periumbilical area and left side of the abdomen. Bowel soundsnormal.Back: Normal inspection. No CVA tenderness.Skin: Skin warm and dry. Normal skin color. No rash. Normal skin turgor.Extremities: Extremities exhibit normal ROM. No lower extremity edema.Neuro: Oriented X 3. No motor deficit. No sensory deficit.LABS, X-RAYS, AND EKGLaboratory Tests: CBC w Diff: (ABILIO: 12/18/2020 23:35) ( MsgRcvd 12/18/2020 23:44) Final results Test Result Flag Units (Reference) CBC W/AUTOMATED DIFF COMPLETE BLOOD COUNT WBC 8.3 10/uL (4.2 - 11.0) RBC 3.98 L 10/uL (4.20 - 5.40) HEMOGLOBIN 13.0 g/dL (12.0 - 16.0) HEMATOCRIT 38.8 % (37.0 - 47.0) MCV 97.5 fL (81.0 - 101) MCH 32.7 pg (27.0 - 34.0) MCHC 33.5 g/dL (31.0 - 36.0) RDW 13.2 % (11.5 - 14.5) PLATELETS 203 10/uL (150 - 450) MPV 10.8 H fL (7.4 - 10.4) NEUT 59.2 % (37.0 - 80.0) LYMPH 29.7 % (25.0 - 40.0) MONO 8.2 H % (3.0 - 8.0) EOS 2.1 % (0.0 - 7.0) BASO 0.4 % (0.0 - 2.5) 3 Clinical Report - Physicians/Mid Levels [facility] Emergency Department [address] [place] [address] Phone #: [phone] reh- [phone] 12/18/2020 22:21 Patient: ZARIA CAR Sex: F : 1995 Age: 25y %IG 0.4 H % (0.0 - 0.0) %NRBC 0.0 % (0.0 - 0.0) #NEUT 4.89 10/uL (2.00 - 6.90) #LYMPH 2.45 10/uL (0.60 - 3.40) #MONO 0.68 10/uL (0.00 - 0.90) #EOS 0.17 10/uL (0.00 - 0.70) #BASO 0.03 10/uL (0.00 - 0.20) #IG 0.03 10/uL (0.00 - 0.10) #NRBC 0.00 10/uL (0.00 - 0.00) MANUAL DIFF NOT INDICATED RBC MORPH NOT INDICATEDCMP: (ABILIO: 12/18/2020 23:35) ( MsgRcvd 12/19/2020 00:07) Final results Test Result Flag Units (Reference) COMPREHENSIVE METABOLIC PANEL COMPREHENSIVE METABOLIC PANEL SODIUM 138 mEq/L (134 - 153) POTASSIUM 3.8 mEq/L (3.6 - 5.0) CHLORIDE 103 mEq/L (98 - 107) CO2 27 MEQ/L (22 - 30) GLUCOSE 85 MG/DL (70 - 99) BUN 10 MG/DL (7 - 21) CREATININE 0.6 L MG/DL (0.7 - 1.5) BUN/CREAT 17 (8 - 27) TOTAL PROTEIN 6.4 G/DL (6.3 - 8.2) ALBUMIN 4.1 G/DL (3.9 - 5.0) GLOBULIN 2.3 L GM/DL (2.4 - 3.2) A/G RATIO 1.8 (0.8 - 2.0) CALCIUM 9.7 MG/DL (8.4 - 10.2) TOTAL BILI <0.7 MG/DL (0.2 - 1.3) ALKALINE PHOS 83 U/L (38 - 126) SGOT/AST 13 U/L (5 - 40) SGPT/ALT 7 U/L (7 - 56) ANION GAP 8.0 mmol/L (8.0 - 16.0) AGE 25 yrs NON-AA GFR >60 mL/min AFR AMER GFR >60 mL/min Male GFR Interprentation 20-49 yrs >60 mL/min Euuvlt58-10 yrs >56 mL/min Normal 60-69 yrs >49 mL/min Normal 70-79yrs>42 mL/min Normal 80 and above >35 mL/min Normal Female GFRInterpretation 20-39 yrs >60 mL/min Normal 40-49 yrs >58 mL/minNormal 50-59 yrs >51 mL/min Normal 60-69 yrs >45 mL/min Lokzqs09-88 yrs >39 mL/min Normal 80 and above >32 mL/min NormalLactic Acid: (ABILIO: 12/18/2020 23:35) ( [facility] [place]:50) Final results Test Result Flag Units (Reference) LACTIC ACID 1.3 MMOL/L (0.2 - 2.2)Lipase: (ABILIO: 12/18/2020 23:35) ( [facility] [place] 12/19/2020 00:07) Final results Test Result Flag Units (Reference) LIPASE 31 U/L (13 - 60)Urinalysis: (ABILIO: 12/18/2020 22:51) ( [facility] [place] 12/18/2020 23:10) Final results Test Result Flag Units (Reference) URINALYSIS URINALYSIS 4 Clinical Report - Physicians/Mid Levels [facility] Emergency Department [address] [place] [address] Phone #: ext- [phone] 12/18/2020 22:21 Patient: ZARIA CAR Sex: F : 1995 Age: 25y SOURCE R COLOR yellow (NORMAL: Yello CLARITY turbid (NORMAL: Clear SPEC GRAVITY 1.020 (1.001 - 1.030 pH 6.5 (5 - 9) GLUCOSE NORM (NORMAL: Negat BILIRUBIN NEG (NORMAL: Negat KETONE 5 A (NORMAL: Negat PROTEIN NEG (NORMAL: Negat NITRITE NEG (NORMAL: Negat BLOOD NEG (NORMAL: Negat LEUK EST 25 (NORMAL: Negat UROBILINOGEN NOR (less than 1.0 MICROSCOPIC See Below WBC 1 - 3 (NORMAL: NONE RBC 0 - 1 (NORMAL: NONE EPITHELIAL MANY A (NORMAL: NONE BACTERIA 1+ SMALL (NORMAL: NONE MUCOUS 1+ (NORMAL: NONE AMORPH SED 1+ (NORMAL: NONE Beta-HCG, Qual Urine: (ABILIO: 12/18/2020 22:51) ( MsgRcvd 12/18/2020 23:11) Final results Test Result Flag Units (Reference) HCG URINE QUAL NEGATIVE (NORMAL: NEGAT HCG URINE QL REENTER NEGATIVE (NORMAL: NEGAT { KIT LOT # [id number] ){ KIT EXP DATE 05.10.22 ){ PROCEDURAL CONTROL VALID ).PROGRESS AND PROCEDURESCourse of Care: pt presents to the ed with abdominal pain. she has a hx of ovarian cysts. on exam, shehas a non- surgical abdomen. her labs are grossly nl. she is not . she does not have a uti. herct shows a left adnexal cyst 5.2x3.5cm. I encouraged her to f/u with obstetrics and gynecology professor this week and to return if worseor any new symptoms. Patient/family counseled. Disposition: Discharged. Condition: good and stable.CLINICAL IMPRESSION Single left ovarian cyst. pelvic congestion.INSTRUCTIONS 5 Clinical Report - Physicians/Mid Levels [facility] Emergency Department [address] [place] [address] Phone #: ext- [phone] 12/18/2020 22:21 Patient: ZARIA CAR Sex: F : 1995 Age: 25y No strenuous activity. Do not work for three days. Drink plenty of fluids. (Please also follow up with your primary care physician. return if worse or any new symptoms. take tylenol andmotrin for pain. please call your legal officer and be seen in the next 2 days. if your symptoms do not improve, please return for an ultrasound of your pelvis and ovarian cyst.). Warnings: Further evaluation is necessary. GENERAL WARNINGS: Return or contact your physician immediately if your condition worsens or changes unexpectedly, if not improving as expected, or if other problems arise. Your Current Medications: . No home medication. Follow-up: Follow up with your doctor in two days even if well. Call for an appointment. Reason for referral: evaluation. Summary of care provided to patient via paper. Understanding of the discharge instructions verbalized by patient.(Electronically signed by Jenny Apple MD 12/19/2020 03:56) Name Value Range Interpretation Code Description Data Rachel rce(s) Supporting Document(s) ID Date Data Source [id number] 12/19/2020 12:07:00 AM EDT [facility] Name Value Range Interpretation Code Description Data Rachel rce(s) Supporting Document(s) Lipase [Enzymatic activity/volume] in Serum or Plasma 31 U/L 13 - 60 [facility] ID Date Data Source [id number] 12/19/2020 12:07:00 AM EDT [facility] Name Value Range Interpretation Code Description Data Rachel rce(s) Supporting Document(s) COMPREHENSIVE METABOLIC PANEL [facility] COMPREHENSIVE METABOLIC PANEL Sodium [Moles/volume] in Serum or Plasma 138 mEq/L 134 - 153 [facility] Potassium [Moles/volume] in Serum or Plasma 3.8 mEq/L 3.6 - 5.0 [facility] Chloride [Moles/volume] in Serum or Plasma 103 mEq/L 98 - 107 [facility] Carbon dioxide, total [Moles/volume] in Serum or Plasma 27 MEQ/L 22 - 30 [facility] Glucose [Mass/volume] in Serum or Plasma 85 MG/DL 70 - 99 [facility] BUN 10 MG/DL 7 - 21 [facility] Creatinine [Mass/volume] in Serum or Plasma 0.6 MG/DL 0.7 - 1.5 L [facility] BUN/CREAT 17 8 - 27 [facility] Protein [Mass/volume] in Serum or Plasma 6.4 G/DL 6.3 - 8.2 [facility] Albumin [Mass/volume] in Serum or Plasma 4.1 G/DL 3.9 - 5.0 [facility] Globulin [Mass/volume] in Serum by calculation 2.3 GM/DL 2.4 - 3.2 L [facility] A/G RATIO 1.8 0.8 - 2.0 [facility] Calcium [Mass/volume] in Serum or Plasma 9.7 MG/DL 8.4 - 10.2 [facility] Bilirubin.total [Mass/volume] in Serum or Plasma <0.7 MG/DL 0.2 - 1.3 [facility] Alkaline phosphatase [Enzymatic activity/volume] in Serum or Plasma 83 U/L 38 - 126 [facility] Aspartate aminotransferase [Enzymatic activity/volume] in Serum or Plasma 13 U/L 5 - 40 [facility] Alanine aminotransferase [Enzymatic activity/volume] in Seru m or Plasma 7 U/L 7 - 56 [facility] Anion gap 3 in Serum or Plasma 8.0 mmol/L 8.0 - 16.0 [facility] 25 [facility] >60 mL/min [facility] ital AFR AMER GFR >60 mL/min [facility] Male GFR In terprentation 20-49 yrs >60 mL/min Normal 50-59 yrs >56 mL/min Normal 60-69 yrs >49 mL/min Normal 70-79yrs >42 mL/min Normal 80 and above >35 mL/min Normal Female GFR Interpretation 20-39 yrs >60 mL/min Normal 40-49 yrs >58 mL/min Normal 50-59 yrs >51 mL/min Normal 60-69 yrs >45 mL/min Normal 70-79 yrs >39 mL/min Normal 80 and above >32 mL/min Normal ID Date Data Source [id number] 12/18/2020 11:50:00 PM EDT [facility] Name Value Range Interpretation Code Description Data Rachel rce(s) Supporting Document(s) Lactate [Moles/volume] in Serum or Plasma 1.3 MMOL/L 0.2 - 2.2 [facility] ID Date Data Source [id number] 12/18/2020 11:44:00 PM EDT [facility] Name Value Range Interpretation Code Description Data Rachel rce(s) Supporting Document(s) CBC W/AUTOMATED DIFF [facility] COMPLETE BLOOD COUNT Leukocytes [#/volume] in Blood by Automated count 8.3 10^3/uL 4.2 - 1 1.0 [facility] Erythrocytes [#/volume] in Blood by Automated count 3.98 10^6/uL 4. 20 - 5.40 L [facility] Hemoglobin [Mass/volume] in Blood 13.0 g/dL 12.0 - 16.0 [facility] Hematocrit [Volume Fraction] of Blood by Automated count 38.8 % 3 7.0 - 47.0 [facility] Erythrocyte mean corpuscular volume [Entitic volume] by Auto mated count 97.5 fL 81.0 - 101 [facility] Erythrocyte mean corpuscular hemoglobin [Entitic mass] by Automated count 32.7 pg 27.0 - 34.0 [facility] Erythrocyte mean corpuscular hemoglobin concentration [Mass/volume] by Automated count 33.5 g/dL 31.0 - 36.0 [facility] Erythrocyte distribution width [Ratio] by Automated count 13.2 % 11.5 - 14.5 [facility] Platelets [#/volume] in Blood by Automated count 203 10^3/uL 150 - 45 0 [facility] Platelet mean volume [Entitic volume] in Blood by Automated count 10.8 fL 7.4 - 10.4 H [facility] Neutrophils/100 leukocytes in Blood by Automated count 59.2 % 37. 0 - 80.0 [facility] Lymphocytes/100 leukocytes in Blood by Manual count 29.7 % 25.0 - 40.0 [facility] Monocytes/100 leukocytes in Blood by Automated count 8.2 % 3.0 - 8.0 H [facility] Eosinophils/100 leukocytes in Blood by Automated count 2.1 % 0.0 - 7.0 [facility] Basophils/100 leukocytes in Blood by Automated count 0.4 % 0.0 - 2.5 [facility] %IG 0.4 % 0.0 - 0.0 [facility] %NRBC 0.0 % 0.0 - 0.0 [facility] al Neutrophils [#/volume] in Blood by Automated count 4.89 10^3/uL 2.00 - 6.90 [facility] Lymphocytes [#/volume] in Blood by Automated count 2.45 10^3/uL 0.60 - 3.40 [facility] Monocytes [#/volume] in Blood by Automated count 0.68 10^3/uL 0.00 - 0.90 [facility] Eosinophils [#/volume] in Blood by Automated count 0.17 10^3/uL 0.00 - 0.70 [facility] Basophils [#/volume] in Blood by Automated count 0.03 10^3/uL 0.00 - 0.20 [facility] #IG 0.03 10^3/uL 0.00 - 0.10 [facility] #NRBC 0.00 10^3/uL 0.00 - 0.00 [facility] MANUAL DIFF NOT INDICATED [facility] RBC MORPH NOT INDICATED [facility] ID Date Data Source [id number] 12/18/2020 11:10:00 PM EDT [facility] Name Value Range Interpretation Code Description Data Rachel rce(s) Supporting Document(s) HCG URINE QUAL NEGATIVE NORMAL: NEGATIVE [facility] HCG URINE QL REENTER NEGATIVE NORMAL: NEGATIVE [facility] { KIT LOT # [id number] ){ KIT EXP DATE 05.10.22 ){ PROCEDURAL CONTROL VALID ) ID Date Data Source [id number] 12/18/2020 11:09:00 PM EDT [facility] Name Value Range Interpretation Code Description Data Rachel rce(s) Supporting Document(s) [facility]IS [facility] UR[facility]ALYSIS SOURCE R [facility] COLOR yellow NORMAL: Yellow [facility] CLARITY turbid NORMAL: Clear [facility] Specific gravity of Urine by Test strip 1.020 1.001 - 1.030 [facility] pH 6.5 5 - 9 [facility] Glucose [Mass/volume] in Urine by Test strip [facility] Bil[facility].total [Presence] in Urine by Test strip NEG NORMAL: Negative [facility] Ketones [Presence] in Urine by Test strip 5 NORMAL: Negative [facility] Protein [Mass/volume] in Urine by Test strip [facility]G [facility] Nitrite [Presence] in Urine by Test strip NEG NORMAL: Negative [facility] BLOOD NEG NORMAL: Negative [facility] LEUK EST 25 NORMAL: Negative [facility] Urobilinogen [Mass/volume] in Urine by Test strip NOR less nathalia n 1.0 mg/dL [facility] MICROSCOPIC See Below [facility] ital WBC 1 - [address]: [address] [facility] Erythrocytes [#/volume] in Urine by Test strip 0 - 1 NORMAL: NON E SEEN [facility] EPITHELIAL MANY NORMAL: NONE SEEN A [facility] Bacteria [Presence] in Urine sediment by Light microscopy 1+ SMALL NORMAL: NONE SEEN [facility] Mucus [Presence] in Urine sediment by Light microscopy 1+ NOR MAL: NONE SEEN [facility] Amorphous sediment [Presence] in Urine sediment by Light dany roscopy 1+ NORMAL: NONE SEEN [facility] ID Date Data Source [id number] 12/02/2020 03:34:00 PM EDT [facility] 1 OrderSheet [facility] Emergency Department [address] [place] [address] Phone #: ext- [phone] 12/02/2020 15:29 Patient: ZARIA CAR Sex: F : 1995 Age: 25yWEIGHT:74.8 kg (S) HEIGHT:67 inches (S) BMI:25.9ALLERGIES: No Known Drug AllergyCHIEF COMPLAINT: Rt, footDIAGNOSIS: AbrasionLAB ORDERSOrder Description Priority Entered Acknowledged InitialedDIAGNOSTIC STUDY ORDERSOrder Description Priority Entered Acknowledged InitialedMEDICATION/IV/DRIP/FLUID ORDERSOrder Description Priority Entered Acknowledged InitialedTdap IM 0.5 mL 17:01 12/02/2020 17:08 Kristopher Robledo RN; Meena ESPOSITO Per protocol; Bridger Bojorquez-CBacitracin Zinc 17:47 12/02/2020 18:09 TerryTopical 1 Bridger Robledo RNapplication P.A.-C;Tylenol 1 g PO X1 17:47 12/02/2020 18:09 Terrydose: 1000 mg Bridger Robledo RN(NOW x1) PHuy;Keflex PO 500 mg 18:12 12/02/2020 18:21 Kristopher Robledo RN P.A.- C;GENERAL ORDERSOrder Description Priority Entered Acknowledged InitialedIrrigate Wounds 17:47 12/02/2020 17:48 Kristopher(NS) (4X4's) Bridger Robledo RN P.A.-C;Dress Wounds 17:47 12/02/2020 17:48 Kristopher Robledo RN P.A.-C;[Electronically signed by Kristopher Robledo RN (18:51 12/02/2020)] 2 OrderSheet [facility] Emergency Department [address] [place] [address] Phone #: ext- [phone] 12/02/2020 15:29 Patient: ZARIA CAR Sex: F : 1995 Age: 25y[Electronically signed by Bridger Serra P.A.-C (20:16 12/02/2020)][Electronically locked by Kristopher Robledo RN (18:51 12/02/2020)] Name Value Range Interpretation Code Description Data Rachel rce(s) Supporting Document(s) ID Date Data Source [id number] 12/02/2020 03:34:00 PM EDT [facility] 1 Medication Reconciliation Report [facility] Emergency Department [address] [place] [address] Phone #: [phone]- [phone] 12/02/2020 15:29 Patient: ZARIA CAR Sex: F : 1995 Age: 25yWeight: 74.8 kgHeight/Length: 67 in.BMI: 25.9ALLERGIES: No Known Drug AllergyThe patient's Home Medications are listed below:NONE.The source(s) of the original Home Medication information:Not obtained.The following Medications were given to the patient in the Emergency D epartment:TDAP [IM] IM 0.5 mL, administered: 17:08 12/02/2020acitracin Zinc [Topical] Topical 1 application, administered: 18:04 12/02/2020Tylenol [PO] PO 1000 mg, administered: 17:54 12/02/2020Keflex [PO] PO 500 mg, administered: 18:21 12/02/2020The following Medications were prescribed to the patient:cephalexin 500 mg capsule Take 1 capsule three times a day for 7 days -- Dispense 21 capsule.Refills: 0. Substitution permitted.Pharmacy - [facility] [place] [address] ; [place] [address]. .gabapentin 100 mg capsule Take 1 capsule three times a day for 3 days -- Dispense 9 capsule. Refills:0. Substitution permitted.Pharmacy - [facility] [place] [address] ; [place] [address]. . -- Bridger Serra P.A.-C Name Value Range Interpretation Code Description Data Rachel rce(s) Supporting Document(s) ID Date Data Source [id number] 12/02/2020 03:34:00 PM EDT [facility] 1 Medication Administration Record [facility] Emergency Department [address] [place] [address] Phone #: ext- [phone] 12/02/2020 15:29 Patient: ZARIA CAR Sex: F : 1995 Age: 25yWeight: 74.8 kgHeight/Length: 67 inBMI: 25.9ALLERGIES: No Known Drug Allergy Date/Time Medication Administered Medication OrderedGiven TDAP [IM] Tdap IM 0.5 mL17:08 12/02/2020 Dose: 0.5 mL Johann Zamorano BACITRACIN ZINC [TOPICAL] Bacitracin Zinc Topical 118:04 12/02/2020 Dose: 1 application Ointment Topical applicationJohann Cruz TYLENOL [PO] (APAP) Tylenol 1 g PO X1 dose: 1000 mg17:54 12/02/2020 Dose: 1000 mg Tablets PO (NOW x1)Te Johann Kohler KEFLEX [PO] (CEPHALEXIN Keflex PO 500 mg18:21 12/02/2020 MONOHYDRATE)Kristopher Robledo RN Dose: 500 mg Capsules PO Name Value Range Interpretation Code Description Data Rachel rce(s) Supporting Document(s) ID Date Data Source [id number] 12/02/2020 03:34:00 PM EDT [facility] 1 General Instructions [facility] Emergency Department [address] [place] [address] Phone #: ext- [phone] 12/02/2020 15:29 Patient: ZARIA CAR Sex: F : 1995 Age: 25ySingle superficial abrasion to the right foot.INSTRUCTIONSApply ice for 10 minutes three times a day for one weeks followed by dry heat 10 minutes three times a dayfor one weeks as needed. Don't apply ice directly to skin, don't use while asleep and don't use high settingon heating pad. Protect wound and keep wound area clean. Change dressing daily. You may walk andbear weight as tolerated. Do not work for five days (To facilitate recovery).No dietary restrictions.(Recommend to utilize OTC Motrin and Tylenol to control inflammation and pain management.Recommend to follow the instructions on the bottle and not to exceed.).Warnings: INFECTION: Watch for signs of infection (increasing heat and redness, pus-like drainage,swelling, or increased pain). Return or see your doctor if these signs occur.GENERAL WARNINGS: Return or contact your physician immediately if your condition worsens orchanges unexpectedly, if not improving as expected, or if other problems arise.Prescription Medications:cephalexin 500 mg capsule Take 1 capsule three times a day for 7 days -- Dispense 21 capsule.Refills: 0. Substitution permitted.Pharmacy - [facility] [place] [address] ; [place] [address]. .gabapentin 100 mg capsu le Take 1 capsule three times a day for 3 days -- Dispense 9 capsule. Refills:0. Substitution permitted.Pharmacy - [facility] [place] [address] ; [place] [address]. .Follow-up:Follow up with your healthcare provider in about two days if not better. Call for an appointment.Understanding of the discharge instructions verbalized by patient. ADDITIONAL INFORMATIONAbrasions 2 General Instructions [facility] Emergency Department [address] [place] [address] Phone #: ext- [phone] 12/02/2020 15:29 Patient: ZARIA CAR Sex: F : 1995 Age: 25yAbrasions are skin scrapes. Their treatment depends on how large and deep the abrasion is.Home careYou may be prescribed an antibiotic cream or ointment to apply to the wound. This helps preventinfection. Follow instructions when using this medicine.General care To care for the abrasion, do the following each day for as long as directed by your healthcare provider: o If you were given a bandage, change it once a day. If your bandage sticks to the wound, soak it in warm water until it loosens. o Wash the area with soap and warm water. You may do this in a sink or under a tub faucet or shower. Rinse off the soap. Then pat the area dry with a clean towel. o If antibiotic ointment or cream was prescribed, reapply it to the wound as directed. Cover the wound with a fresh nonstick bandage. If the bandage becomes wet or dirty, change it as soon as possible. o Some antibiotic ointments or cream can cause an allergic reaction or dermatitis. This may cause redness, itching and or hives. If this occurs, stop using the ointment right away and wash off any remaining ointment. You may need to take some allergy medicine to relieve symptoms. You may use acetaminophen or ibuprofen to control pain unless another pain medicine was prescribed. Talk with your healthcare provider before using these medicines if you have chronic liver or kidney disease or ever had a stomach ulcer or GI (gastrointestinal) bleeding. Don't use ibuprofen in children younger than 6 months old. Most skin wounds heal within 10 days. But an infection may occur even with treatment. So it's important to watch the wound for signs of infection as listed below.Follow-up careFollow up with your healthcare provider, or as advised.When to get medical adviceCall your healthcare provider right away if any of these occur: Fever of 100.4F (38C) or higher, or as directed by your healthcare provider Increasing pain, redness, swelling, or drainage from the wound 3 General Instructions [facility] Emergency Department [address] [place] [address] Phone #: ext- [phone] 12/02/2020 15:29 Patient: ZARIA CAR Sex: F : 1995 Age: 25y Bleeding from the wound that does not stop after a few minutes of steady, firm pressure Decreased ability to move any body part near the wound [employer]. [address] [place] [address]. All rights reserved. This information is not intended as asubstitute for professional medical care. Always follow your healthcare professional's instructions.Bandage ChangeIf the bandage becomes wet or dirty, replace it. Otherwise, leave it in place for the first 24 hours.Then once a day: Remove the bandage and wash the area with soap and water. Use a wet cotton swab to loosen and remove any blood or crust that forms on the wound. After cleaning, apply a thin layer of antibiotic ointment or cream. Put a new bandage on.You can shower as usual after the first 24 hours. If the bandage is on an arm or leg, cover it with aplastic bag rubber-banded at both ends before showering. Take care that the rubber bands are nottoo tight, cutting off circulation to the affected area. If the area is not on an arm or leg and can't becovered with a bag, then don't shower or take a tub bath. Take a sponge bath instead until the woundis healed.Don't take a tub bath or go swimming until the bandage is removed and the wound healed. This willtake at least 7 days.When to seek medical adviceCall your healthcare provider right away if any of these occur with your wound: Fever Redness, warmth, or swelling Pain in the wound gets worse Foul smell from the wound Pus drains when you remove the bandage Red streaks surround the wound area [employer] [address] [place] [address]. All rights reserved. This information is not intended as asubstitute for professional medical care. Always follow your healthcare professional's instructions. You have been given the following additional information: Abrasions 4 General Instructions [facility] Emergency Department [address] [place] [address] Phone #: ext- [phone] 12/02/2020 15:29 Patient: ZARIA CAR Sex: F : 1995 Age: 25yDressing ChangeYou may walk and bear weight as tolerated. Do not work for five days (To facilitate recovery).(Electronically signed by Bridger Serra P.A.-C 12/02/2020 20:16) Name Value Range Interpretation Code Description Data Rachel rce(s) Supporting Document(s) ID Date Data Source [id number] 12/02/2020 03:34:00 PM EDT [facility] 1 Clinical Report - Nurses [facility] Emergency Department [address] [place] [address] Phone #: ext- [phone] 12/02/2020 15:29 Patient: ZARIA CAR Sex: F : 1995 Age: 25yTRIAGEArrived by private vehicle. Historian: patient.Acuity: LEVEL 4.Chief Complaint: INJURY TO THE RIGHT FOOT.Alert. No acute distress.Occurred 03:33 12/02/2020. The patient sustained a laceration (razor). ( PT reports this morning [id number] am she stepped out of the shower unto a blake razor blade. She reports a moderate amount ofbleeding between her great and 2nd toe on her right foot. 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 SEPSIS SCREEN NEGATIVE. No suspected or confirmedsigns of infection present.BINU COMA SCORE: 15- eyes open- spontaneous (4); best verbal response- oriented (5); bestmotor response- obeys commands (6). --15:39 12/02/20 Sharron Jimenez R.N.15:32 12/02/20. BP: 110/58. HR: 89. RR: 18. O2 saturation: 98%. Temp: 97.0 F. Pain level now 10/18.--15:39 12/02/20 Sharron Jimenez R.N.Weight: 74.8 kg state d. Height/Length: 67 inches Per Patient. BMI: 25.9. --15:36 12/02/20 Sharron Jimenez R.N.MedicationsNone. --15:37 12/02/20 Sharron Jimenez R.N.AllergiesNo Known Drug Allergy. --15:37 12/02/20 Sharron Jimenez R.N.PROBLEMS:Ectopic .Migraine Headache. --15:37 12/02/20 Sharron Jimenez R.N.ADDITIONAL SURGERIES:Cholecystectomy..Exploratory laparotomy. 2 Clinical Report - Nurses [facility] Emergency Department [address] [place] [address] Phone #: ext- [phone] 12/02/2020 15:29 Patient: ZARIA CAR Sex: F : 1995 Age: 25y Salpingectomy. --15:37 12/02/20 Sharron Jimenez R.N. History PAST MEDICAL HX: Tetanus status: more than 5 years ago. Immunizations: up-to-date. Last normal menstrual period- November 25. Denies current . SOCIAL HX: Smoker- current status unknown (vape). Occasional alcohol use. No drug use. The patient was offered HIV testing but declined and hepatitis C testing but declined. The patient has not traveled outside the [place] Infectious disease exposure: The patient was not exposed to C-diff, MRSA, VRE, CRE or Coronavirus. SELF HARM ASSESSMENT: Self harm assessment was performed. The patient answered "no" to the question(s) "Have you recently felt down, depressed, or hopeless?", "Do you have thoughts of harming or killing yourself?", "Do you have a plan for harming or killing yourself?", "Have you recently had thoughts about harming or killing others?", "Do you have any dangerous items in your possession?", "Have you noticed less interest or pleasure in doing things?", "Are you here because you tried to hurt yourself?" and "Have you ever tried to hurt yourself before today?". ABUSE ASSESSMENT: No report of abuse. NUTRITIONAL RISK ASSESSMENT: The nutritional risk assessment revealed no deficiencies. FUNCTIONAL ASSESSMENT: Functional assessment: no impairments noted. LEARNING NEEDS ASSESSMENT: The learning needs assessment revealed no barriers. FALL RISK ASSESSMENT: Fall risk assessment completed. No risk factors identified. SKIN INTEGRITY ASSESSMENT: Skin integrity risk assessment completed. No skin integrity risk identified. --15:39 12/02/20 Sharron Jimenez R.N. Interventions Identification band on patient. To treatment room. No allergy band on patient. --15:39 12/02/20 Sharron Jimenez R.N.PHYSICAL [id number]:59 12/02/20. Ambulatory to room.GENERAL / NEURO / PSYCH: Oriented X 4. Not alert. Appears in no acute distress.EXTREMITIES: Extremities exhibit normal ROM. Normal gait. Right foot: 2.0 cm laceration (sole base 2toe).SKIN: Skin is warm and dry. --16:59 12/02/20 Kristopher Robledo RN.NURSING PROGRESS NOTESTwo patient identifiers checked. Call light placed in reach. Bed placed in lowest position. Brakes of bedon. Patient ready for evaluation- chart flagged. --17:00 12/02/20 Kristopher Robledo RN 3 Clinical Report - Nurses [facility] Emergency Department [address] [place] [address] Phone #: ext- [phone] 12/02/2020 15:29 [id number] Sex: F : 1995 Age: 25y 16:52 12/02/20. BP: 130/82. MAP: 98. HR: 75. RR: 16. O2 saturation: 100%. Temp: 98.7 F (oral). Pain level now: 10/18. --17:00 12/02/20 Kristopher Robledo RN 17:08 12/02/2020 TDAP IM 0.5 mL given(Lot#: [id number], expiration date: 08/14/2022, Senior Search Marketing Analyst: [employer]). Given in the left deltoid. Allergies verified and confirmed 5 rights. Information reviewed with patient. --17:08 12/02/20 Kristopher Robledo RN 17:54 12/02/2020 Tylenol (APAP) PO Tablets 1000 mg given. Allergies verified and confirmed 5 rights. Information reviewed with patient. --18:09 12/02/20 Kristopher Robledo RN 18:04 12/02/2020 Bacitracin Zinc Topical Ointment 1 application given. Applied to the wound. Allergies verified and confirmed 5 rights. Information reviewed with patient. --18:09 12/02/20 Kristopher Robledo RN Wound cleansed with sterile saline (0897). Right foot: applied dressing consisting of 4x4 gauze and telfa pad, following the application of antibiotic ointment (bacitracin). Secured with rosy bandage. (6123). --18:10 12/02/20 Kristopher Robledo RN 18:21 12/02/2020 Keflex (Cephalexin Monohydrate) PO Capsules 500 mg given. Allergies verified and confirmed 5 rights. Information reviewed with patient. --18:21 12/02/20 Kritsopher Robledo RN.DISPOSITION / DISCHARGE 18:18 12/02/20. BP: 129/84. HR: 81. RR: 16. O2 saturation: 100%. Temp: 98.7 F. Pain level now 07/18. --18:18 12/02/20 Shaylee Le RN 18:51 12/02/20. Departure time: 18:51 12/02/2020. Condition at departure: improved. No learning barriers present. Discharge instructions provided and reviewed with the patient. Reviewed medication(s) side effects, precautions, dosing and course information. Prescription(s) sent electronically to pharmacy. Reviewed wound care instructions. Reviewed referrals. Provided to follow-up provider. Patient verbalized understanding. Written instructions provided in Maltese. The patient was discharged by the physician optometrist assistant. She was discharged home. She left ambulatory and via private vehicle. Patient driving. --18:51 12/02/20 Kristopher Robledo RN.Locked/Released at 12/02/2020 18:51 by Kristopher Robledo RN Name Value Range Interpretation Code Description Data Rachel rce(s) Supporting Document(s) ID Date Data Source [id number] 12/02/2020 03:34:00 PM EDT [facility] 1 Clinical Report - Physicians/Mid Levels [facility] Emergency Department [address] [place] [address] Phone #: ext- [phone] 12/02/2020 15:29 Patient: ZARIA CAR Sex: F : 1995 Age: 25y Time Seen: 17:22 12/02/2020; initial patient contact, initial documentation. Arrived- By private vehicle. Historian- patient. Disposition decision: 18:10 12/02/2020.HISTORY OF PRESENT ILLNESS Chief Complaint: Injury to the right foot. The injury happened today. Occurred at home. The patient sustained a laceration. Patient is experiencing mild pain. No injury to the head or neck or other injury. (PT reports this morning around 330 am she stepped out of the shower unto a blake razor blade. She reports a moderate amount of bleeding between her great and 2nd toe on her right foot. She is unsure of her last tetanus shot).REVIEW OF SYSTEMSThe patient sustained a laceration. No swelling, tingling, weakness, numbness or suspected foreign body.She has no pain on weight bearing. All other systems reviewed and are negative.PAST HISTORYSee nurses notes. Tetanus immunization status is unknown.SOCIAL HISTORYSmoker- current status unknown (Vapes). Occasional alcohol use. No drug use.ADDITIONAL NOTESThe nursing notes have been reviewed.PHYSICAL EXAMVital Signs: 12/02/2020 15:32 BP: 110/58. MAP: 75. HR: 89. RR: 18. O2 saturation: 98%. Temp: 97.0 F.Have been reviewed. Oxygen saturation normal.Appearance: Alert. Oriented X3. No acute distress.ENT: Voice normal.CVS: Normal heart rate and rhythm. No JVD present. Pulses normal. Capillary refill normal. Strongperipheral pulses. Heart sounds normal. Pulses: right radial 2+; left radial 2+; right dorsalis pedis 2+; lef tdorsalis pedis 2+; right posterior tibial 2+; left posterior tibial 2+.Respiratory: Chest normal on inspection. No respiratory distress. Unlabored respirations. Lungs clear.Good chest movement. Breath sounds normal and equal.Skin: Skin warm and dry.Extremities: Right foot, plantar aspect: small abrasion with controlled bleeding and superficial avulsionwith controlled bleeding of the distal and central aspect of the foot. Neurovascular intact distally. Noerythema, tenderness, swelling, laceration or ecchymosis. No puncture wound. No right ankle complaints 2 Clinical Report - Physicians/Mid Levels [facility] Emergency Department [address] [place] [address] Phone #: ext- [phone] 12/02/2020 15:29 [id number] Sex[facility] F : 1995 Age: 25y or right foot complaints. No foot injury. No ankle injury. Foot and ankle exam otherwise negative. Extremities otherwise negative. Neuro, Vascular and Tendons: Vascular status intact. Sensation intact. Motor intact. Gait: Limping gait. Neuro: Awake. Alert. Mood/affect normal. No motor deficit. No sensory deficit. Psych: Cognition normal. Thought process and content normal. Insight and judgement normal.PROGRESS AND PROCEDURESCourse of Care: Enter room and pt lying peacefully in bed in [facility]. Patient stable. Denies any newissues, concerns, or complaints. VSS, NAD, AOx3, interacting well and appropriately, no use of accessory muscle, able to speak full sentences, stable, non-toxic looking . Pt sustained a abrasion injury to plantar aspect of the R foot. Unsure of tetanus status. PE shelbie NV intact b/l UE and LE. Wound is superficial. No active bleeding. Will tx. Pt declined crutches. Will provide work note to facilitate recovery. Discussed tx plan with pt. Discussed and counseled on stable condition. Discussed importance of a f/u with PCP. Discussed return to ER criteria. Answered their questions. Indicates and verbalizes that they understand, agree, and will comply with above. Denies any new questions or concerns. Patient has capacity to understand. Discharge decision based on the f ollowing: patient's condition is stable; patient's exam is stable; social support is adequate; transportation is available; follow-up is available. Discussed of OTC Motrin and Tylenol to control inflammation and pain management. Informed to follow directions on bottle that are appropriate for age and/or weight. Disposition: Discharged home in good and improved condition. Condition: good and stable.CLINICAL IMPRESSION Single superficial abrasion to the right foot.INSTRUCTIONS Apply ice for 10 minutes three times a day for one weeks followed by dry heat 10 minutes three times a day for one weeks as needed. Don't apply ice directly to skin, don't use while asleep and don't use high setting on heating pad. Protect wound and keep wound area clean. Change dressing daily. You may walk and bear weight as tolerated. Do not work for five days (To facilitate recovery). No dietary restrictions. 3 Clinical Report - Physicians/Mid Levels [facility] Emergency Department [address] [place] [address] Phone #: ext- [phone] 12/02/2020 15:29 Patient: ZARIA CAR Sex: F : 1995 Age: 25y (Recommend to utilize OTC Motrin and Tylenol to control inflammation and pain management. Recommend to follow the instructions on the bottle and not to exceed.). Warnings: INFECTION: Watch for signs of infection (increasing heat and redness, pus-like drainage, swelling, or increased pain). Return or see your doctor if these signs occur. GENERAL WARNINGS: Return or contact your physician immediately if your condition worsens or changes unexpectedly, if not improving as expected, or if other problems arise. Prescription Medications: cephalexin 500 mg capsule Take 1 capsule three times a day for 7 days -- Dispense 21 capsule. Refills: 0. Substitution permitted. Pharmacy - [facility] [place] [address] ; [place] [address]. . gabapentin 100 mg capsule Take 1 capsule three times a day for 3 days -- Dispense 9 capsule. Refills: 0. Substitution permitted. Pharmacy - [facility] [place] [address] ; [place] [address]. . Follow-up: Follow up with your healthcare provider in about two days if not better. Call for an appointment. Understanding of the discharge instructions verbalized by patient.(Electronically signed by Bridger Serra P.A.-C 12/02/2020 20:16) Name Value Range Interpretation Code Description Data Rachel rce(s) Supporting Document(s) ID Date Data Source [id number] 10/31/2020 01:46:00 PM T [facility] Patient: FRANKI CARSLAVA Nguyễn Observatio n Report - Physicians/Mid Levels . [facility].VisitID: [id number] [place] [address] [phone], FRegistration Date/Time: 10/17/2020 22:30 Weight:72.5 kg. Height/Length:66 inches. BMI:25.8 PAST HISTORYProblems:no known problems. Additional Surgeries:Cholecystectomy..Ectopic . ((states had surgery )). Medications:Ibuprofen Oral (Tablet 800 mg) 1 tablet, 3x a day, last dose today at 1400 . Allergies:No Known Drug Allergy. FAMILY HISTORYNegative - denies family medical history. INSTRUCTIONSYour Current Medications: Your current home medications have been reviewed. CONTINUE TAKING THE FOLLOWING MEDICATIONS:Ibuprofen Oral : Tablet 800 mg, 1 tablet 3x a day, Last: today at 1400. (Electronically signed by Maryellen Rogers 10/18/2020 00:46) Addenda for ZARIA CAR VisitID: [id number] Date: 10/17/2020 10/31/2020 13:31Lab results reviewed. Communicated information to patient. Script for Flagyl 500mg po BID for 5 days called [facility] in [place]. Pt aware that script called in. (Electronically signed by Maryuri Dasilva R.N. - 10/31/2020 13:31) Name Value Range Interpretation Code Description Data Rachel rce(s) Supporting Document(s) ID Date Data Source [id number] 10/18/2020 07:17:00 AM EDT [facility] DATE OF EXAMINATION: 10/17/2020 23:11 EDT ABD/PEL NO CONTRAST HISTORY: Post left nephrectomy now with pain Comparison:None TECHNIQUE: This CT exam was performed using the following dose reductiontechniques: automated exposure control, adjustment of mA and/or kV according tothe patient's size, and use of iterative reconstruction technique. Standard contiguous axial spiral imaging was obtained from the dome of thediaphragms through the symphysis pubis without oral contrast and withoutintravenous contrast administration and with coronal reformatting. FINDINGS:Lower thorax: Lung bases clear. No pleural or pericardial effusion. ABDOMEN:Liver: The liver is normal. Gallbladder and bile ducts: Postcholecystectomy Pancreas: Normal pancreas. No peripancreatic soft tissue stranding or fluid Spleen: Spleen is normal Adrenals: Normal adrenal glands. No adrenal mass Kidneys and ureters: Normal kidneys. No hydronephrosis, renal stones or masses.No perinephric soft tissue stranding Stomach and bowel: Unremarkable. No dilated bowel, bowel wall thickening, orinflammatory changes. Appendix: No evidence of appendicitis Peritoneum/retroperitoneum:Small amount of free fluid in the pelvis. Trace fluidin the right upper quadrant. Lymph nodes:No adenopathy Soft tissues:Small fat-containing umbilical hernia with air contained within thesoft tissues. This consistent with recent laparoscopic surgery Bones:Unremarkable Vessels:Unremarkable PELVIS:Bladder: Bladder is normal Reproductive: There is a right adnexal cyst measuring approximately 3 cm. Thiscould be further evaluated sonographically. IMPRESSION: 1. Right adnexal cyst. This could be better evaluated sonographically.2. Small amount of free fluid in the pelvis and trace fluid in the right upperquadrant of the abdomen. Electronically signed in [id number] by: Praveen Gilliland M.D. 10/18/2020 7:11 EDT Name Value Range Interpretation Code Description Data Rachel rce(s) Supporting Document(s) ID Date Data Source [id number] 10/18/2020 03:55:00 AM EDT [facility] Patient: ZARIA CAR Report - Physicians/Mid Levels . [facility].VisitID: [id number] [place] [address] [phone], FRegistration Date/Time: 10/17/2020 22:30 Weight:72.5 kg. Height/Length:66 inches. BMI:25.8 PAST HISTORYProblems:no known problems. Additional Surgeries:Cholecystectomy..Ectopic . ((states had surgery )). Medications:Ibuprofen Oral (Tablet 800 mg) 1 tablet, 3x a day, last dose today at 1400 . Allergies:No Known Drug Allergy. FAMILY HISTORYNegative - denies family medical history. INSTRUCTIONSYour Current Medications: Your current home medications have been reviewed. CONTINUE TAKING THE FOLLOWING MEDICATIONS:Ibuprofen Oral : Tablet 800 mg, 1 tablet 3x a day, Last: today at 1400. (Electronically signed by Maryellen Rogers 10/18/2020 00:46) Name Value Range Interpretation Code Description Data Rachel rce(s) Supporting Document(s) ID Date Data Source [id number] 10/20/2020 06:10:00 AM EDT [facility] Name Value Range Interpretation Code Description Data Rachel rce(s) Supporting Document(s) CHLAMYDIA TRACHOMATIS, JUAN Negative Negative [facility] NEISSERIA GONORRHOEAE, JUAN Negative Negative [facility] Performed at: RN - [facility] [id number] [place], [place] [id number] Director: Magalie Foster MD, Phone: [phone] ID Date Data Source [id number] 10/19/2020 04:10:00 PM EDT [facility] Name Value Range Interpretation Code Description Data Rachel rce(s) Supporting Document(s) MAREN SPECIES Negative Negative [facility] GARDNERELLA VAGINALIS Positive Negative [facility] TRICHOMONAS VAGINALIS Negative Negative [facility] Performed at: RN - [facility] [id number] [place], [place] [id number] Director: Magalie Foster MD, Phone: [phone] ID Date Data Source [id number] 10/19/2020 04:05:00 PM EDT [facility] Name Value Range Interpretation Code Description Data Rachel rce(s) Supporting Document(s) Maren species Negative Negative [facility] Gardnerella vaginalis Positive Negative Abnormal ( applies to non-numeric results) [facility] Trichomonas vaginalis Negative Negative [facility] ID Date Data Source [id number] 10/20/2020 06:05:00 AM EDT [facility] Name Value Range Interpretation Code Description Data Rachel rce(s) Supporting Document(s) Chlamydia/GC Amplification [facility] TESTS RESULT FLAG UNI TS REF RANGE LAB C trachomatis, JUAN Negative (Negative) 01N gonorrhoeae, JUAN Negative (Negative) 01 FLAG LEGEND: L-Low Normal,H-High Normal,LL-Alert Low,HH-Alert High <-Panic Low,>-Panic High,A-Abnormal,AA-Critical Abnormal Performed at:01 RN [facility] [address] [address] Magalie Foster MD, ID Date Data Source [id number] 10/17/2020 11:51:00 PM EDT [facility] T[facility] [id number] Name Value Range Interpretation Code Description Data Rachel rce(s) Supporting Document(s) GLUCOSE 85 mg/dL 74-106 [facility] BLOOD UREA NITROGEN 8 mg/dL 7-18 [facility] CREATININE 0.70 mg/dL 0.6-1.0 [facility] SODIUM 140 mmol/L 136-145 [facility] POTASSIUM 3.8 mmol/L 3.5-5.1 [facility] CHLORIDE 102 mmol/L 98-107 [facility] CO2 31 mmol/L 21-32 [facility] CALCIUM 9.1 mg/dL 8.5-10.1 [facility] ANION GAP 7.0 mmol/L 5-12 [facility] GLOMERULAR FILTRATION RATE >90 mL/min [facility] GFR IS CALCULATED IN mL/min/1.73m2 JENNY L FUNCTION: >90MILDLY DECREASED: 60-89MILDY TO MODERATELY DECREASED: 45-59 MODERATELY TO SEVERELY DECREASED: 30-44SEVERELY DECREASED: 15-29RENAL FAILURE: <15 AST 80 U/L 15-37 H [facility] ALT 70 U/L 12-78 [facility] ALKALINE PHOSPHATASE 80 U/L 46-116 [facility] pital TOTAL BILIRUBIN 0.2 mg/dL 0.2-1.0 [facility] TOTAL PROTEIN 7.9 g/dl 6.4-8.2 [facility] ALBUMIN 4.1 gm/dL 3.4-5.0 [facility] ID Date Data Source [id number] 10/17/2020 11:51:00 PM EDT [facility] TSYSORDER [id number] Name Value Range Interpretation Code Description Data Rachel rce(s) Supporting Document(s) MAGNESIUM 1.8 mg/dL 1.8-2.4 [facility] ID Date Data Source [id number] 10/17/2020 11:51:00 PM EDT [facility] TSYSORDER [id number] Name Value Range Interpretation Code Description Data Rachel rce(s) Supporting Document(s) LIPASE 108 U/L 73-393 [facility] ID Date Data Source [id number] 10/17/2020 11:49:00 PM EDT [facility] l TSYSORDER [id number] Name Value Range Interpretation Code Description Data Rachel rce(s) Supporting Document(s) PARTIAL THROMBOPLASTIN TIME 26.3 SECONDS 21.2-27.3 [facility] ID Date Data Source [id number] 10/17/2020 11:49:00 PM EDT [facility] l TSYSORDER [id number] Name Value Range Interpretation Code Description Data Rachel rce(s) Supporting Document(s) PROTHROMBIN TIME (PATIENT) 9.6 SECONDS 9.1-11.6 [facility] INR 0.92 0.87-1.06 [facility] ID Date Data Source [id number] 10/17/2020 11:32:00 PM EDT [facility] l TSYSORDER [id number] Name Value Range Interpretation Code Description Data Rachel rce(s) Supporting Document(s) WHITE BLOOD COUNT 8.1 K/mm3 4.0-10.0 [facility] al RED BLOOD COUNT 4.33 M/mm3 4.00-5.50 [facility] HEMOGLOBIN 13.8 gm/dL 12.0-16.0 [facility] HEMATOCRIT 42.4 % 36.0-48.8 [facility] MEAN CELL VOLUME 97.9 fl 80-96 H [facility] MEAN CORPUSCULAR HEMOGLOBIN 31.9 pg 27.0-31.0 H [facility] MEAN CORPUSCULAR HGB CONC 32.5 g/dl 32.0-36.0 [facility] RED CELL DISTRIBUTION WIDTH 12.8 % 10.0-14.5 [facility] PLATELET COUNT 228 K/mm3 172-450 [facility] MEAN PLATELET VOLUME 10.0 fl 9.0-13.0 [facility] pital GRAN % 52.8 % 50-80.0 [facility] IG% 0.0 % 0.0-0.2 [facility] LYMPH % 39.3 % 25.0-50.0 [facility] MONO % 6.5 % 2.0-10.0 [facility] EOS % 1.0 % 0-5.0 [facility] BASO % 0.4 % 0.0-2.0 [facility] GRAN # 4.3 K/mm3 2.0-8.00 [facility] IG# 0.0 K/mm3 0.0-0.2 [facility] LYMPH # 3.2 K/mm3 1.0-5.0 [facility] MONO # 0.5 K/mm3 0.10-1.20 [facility] EOS # 0.1 K/mm3 0.0-0.5 [facility] BASO # 0.0 K/mm3 0.0-0.2 [facility] ID Date Data Source [id number] 10/17/2020 11:28:[address] [facility] spital TSYSORDER [id number] Name Value Range Interpretation Code Description Data Rahcel rce(s) Supporting Document(s) URINE RBC 5-10 /hpf 0-3 H [facility] URINE EPITHELIAL CELLS 1+ /hpf 0 [facility] ID Date Data Source [id number] 10/17/2020 11:26:00 PM EDT [facility] ital TSYSORDER [id number] Name Value Range Interpretation Code Description Data Rachel rce(s) Supporting Document(s) URINE COLOR. [facility] URINE APPEARANCE CLEAR [facility] l URINE GLUCOSE (UA) NEGATIVE mg/dL NEGATIVE [facility] URINE BILIRUBIN NEGATIVE NEGATIVE [facility] URINE KETONE NEGATIVE mg/dL NEGATIVE [facility] SPECIFIC GRAVITY,URINE 1.020 1.005-1.030 [facility] URINE BLOOD 2+(MODERATE) NEGATIVE H [facility] PH,URINE 6.5 5.0-9.0 [facility] URINE PROTEIN NEGATIVE mg/dL NEGATIVE [facility] URINE UROBILINOGEN NORMAL(0.2-1) mg/dL 0-1 R [facility] URINE NITRATE NEGATIVE NEGATIVE [facility] URINE LEUKOCYTE ESTERASE NEGATIVE NEGATIVE [facility] ID Date Data Source [id number] 10/17/2020 11:15:00 PM EDT [facility] l TSYSORDER [id number] Name Value Range Interpretation Code Description Data Rachel rce(s) Supporting Document(s) HCG URINE NEGATIVE NEGATIVE [facility] ID Date Data Source [id number] 10/10/2020 03:35:00 PM EDT [facility] Name Value Range Interpretation Code Description Data Rachel rce(s) Supporting Document(s) ABO group [Type] in Blood A [facility] Rh [Type] in Blood POSITIVE [facility] AB SCREEN NEGATIVE NORMAL: NEGATIVE [facility] { ABO/RH REENTER A POSITIVE{ AB SCREEN RE-ENTER NEGATIVE ID Date Data Source [id number] 10/10/2020 02:44:00 PM EDT [facility] Name Value Range Interpretation Code Description Data Rachel rce(s) Supporting Document(s) HCG SERUM QUAL NEGATIVE NORMAL: NEGATIVE [facility] HCG SERUM QL REENTER NEGATIVE NORMAL: NEGATIVE [facility] { KIT LOT # [id number] ){ KIT EXP DATE 03.10.22 ){ PROCEDURAL CONTROL VALID ) ID Date Data Source [id number] 10/10/2020 10:59:00 AM EDT [facility] Name Value Range Interpretation Code Description Data Rachel rce(s) Supporting Document(s) CBC NO DIFF [facility] ital COMPLETE BLOOD COUNT Leukocytes [#/volume] in Blood by Automated count 6.9 10^3/uL 4.2 - 1 1.0 [facility] Erythrocytes [#/volume] in Blood by Automated count 4.31 10^6/uL 4. 20 - 5.40 [facility] Hemoglobin [Mass/volume] in Blood 13.9 g/dL 12.0 - 16.0 [facility] Hematocrit [Volume Fraction] of Blood by Automated count 42.1 % 3 7.0 - 47.0 [facility] Erythrocyte mean corpuscular volume [Entitic volume] by Auto mated count 97.7 fL 81.0 - 101 [facility] Erythrocyte mean corpuscular hemoglobin [Entitic mass] by Automated count 32.3 pg 27.0 - 34.0 [facility] Erythrocyte mean corpuscular hemoglobin concentration [Mass/volume] by Automated count 33.0 g/dL 31.0 - 36.0 [facility] Erythrocyte distribution width [Ratio] by Automated count 12.8 % 11.5 - 14.5 [facility] Platelets [#/volume] in Blood by Automated count 249 10^3/uL 150 - 45 0 [facility] Platelet mean volume [Entitic volume] in Blood by Automated count 9.9 fL 7.4 - 10.4 [facility] ID Date Data Source [id number] 10/10/2020 10:22:00 AM EDT [facility] Name Value Range Interpretation Code Description Data Rachel rce(s) Supporting Document(s) SARS coronavirus 2 RNA Not Detected [facility] [place] This lab was ordered by [facility] rodriguze and reported by [facility]. ID Date Data Source [id number] 10/12/2020 02:07:00 PM EDT [facility] Name Value Range Interpretation Code Description Data Rachel rce(s) Supporting Document(s) SARS-CoV-2, JUAN Not Detected Not Detected [facility] This nucleic acid amplification test was developed and its performancecharacteristics determined by [facility]. Nucleic acidamplification tests include RT-PCR and TMA. This test has not beenFDA cleared or approved. This test has been authorized by FDA underan Emergency Use Authorization (EUA). This test is only authorizedfor the duration of time the declaration that circumstances existjustifying the authorization of the emergency use of in vitrodiagnostic tests for detection of SARS-CoV-2 virus and/or diagnosisof COVID-19 infection under section 564(b)(1) of the Act, 21 U.S.C.360bbb-3(b) (1), unless the authorization is terminated or revokedsooner.When diagnostic testing is negative, the possibility of a falsenegative result should be considered in the context of a patient'srecent exposures and the presence of clinical signs and symptomsconsistent with COVID- 19. An individual without symptoms of COVID-19and who is not shedding SARS-CoV-2 virus would expect to have anegative (not detected) result in this assay. SARS-CoV-2, JUAN 2 DAY TAT Performed [facility] ID Date Data Source [id number] 09/18/2020 02:15:00 PM EDT [facility] Name Value Range Interpretation Code Description Data Rachel rce(s) Supporting Document(s) COVID-19 RT-PCR NASAL SWAB Not Detected Not Detected [facility] A not detected (negative) test result fo r this test means that SARS-CoV-2 RNA was not present in the specimen above the limit ofdetection. Laboratory test results should always be considered in thecontext of clinical observations and epidemiological data in making afinal diagnosis and patient management decisions. Results will bereported to government agencies as required.This test has received Emergency Use Authorization (EUA). We will continue to follow federal and state requirements for COVID-19 reporting. This test has been authorized only for the detection of RNAfrom SARS-CoV-2 virus and diagnosis of SARS-CoV-2 virus infection, notfor any other viruses or pathogens. This test is only authorized for the duration of the declaration that circumstances exist justifying the authorization of the emergency use of in vitro diagnostic tests for detection of SARS-CoV-2 virus and/or diagnosis of SARS-CoV-2 virusinfection under section 564(b)(1) of the Act, 21 U.S.C. section 360bbb-3(b)(1), unless the authorization is terminated or revoked sooner. We will continue to follow federal and state requirements for both notification of results and any confirmatory testing that is required by another agency. This test was developed and its performance characteristics determined by [facility] and verified at [facility]. It has not been cleared or approved by the U.S. Food and Drug Administration for diagnostic use. This test has been authorized by FDA under an EUA for use by authorized laboratories. Results should be used in conjunction with clinical findings, and should not form the sole basis for a diagnosis or treatment decision. Methods: SARS-CoV-2 Multiplex RT-PCR Assay ID Date Data Source [id number] 09/15/2020 04:00:00 PM EDT [facility] Name Value Range Interpretation Code Description Data Rachel rce(s) Supporting Document(s) SARS-CoV-2 (COVID-19) N gene [Presence] in Respiratory specimen by JUAN with probe detection NEGATIVE [facility] This lab was ordered by [facility] and reported by [facility]. ID Date Data Source [id number] 09/15/2020 12:00:00 AM EDT [facility] Name Value Range Interpretation Code Description Data Rachel rce(s) Supporting Document(s) Carestart Rapid COVID Antigen Test Negative [facility] This lab was reported by [facility]. ID Date Data Source [id number] 08/28/2020 02:04:00 AM EDT [facility] [address] [place] [address] ---------NAME--------- NUMBER SEX AGE ADMIT DISC. XRAY# F/C TYPE JOCELINE GARCIA N [id number] F 25 08/27/20 08/28/20 [id number] SB2 E/R DATE OF : 1995 M/R# [id number] #: [id number] TR-06 LOCATION: EMERGENCY DEPT TRANSCRIBED: 08/28/20 2:[address] ABD //T// PELVIS W/ IV ONLY [id number] COMPLETED:08/28/20 2:48 RLB 9170 Reason(s): abdominal pain, LUQ, RLQ, Diarrhea PHYSICIAN: YUE WILKINS == R A D I O L O G Y R E P O R T PATIENT HISTORY:Abdominal pain, LUQ, RLQ, Diarrhea. Accumulated DLP-675.9 mGy*cm, EstimatedDLP-665.6 mGy*cm. Neg BEta. UKB077, 75mL, [id number], 09/30. Labs verified andscanned.Time Out performed. Correct patient with 2 identifiers, type and amount ofcontrast used, correct body part and side all verified prior to examination.Images sent [facility] for review. - RLB / CORONAL (DICOM Hx)EXAM: CT Abdomen and Pelvis with IV contrastCLINICAL HISTORY:Abdominal pain, LUQ, RLQ, Diarrhea. Accumulated DLP-675.9mGy*cm, Estimated DLP-665.6 mGy*cm. Neg BEta. VDH530, 75mL, [id number], 09/30. Labsverified and scanned. Time Out performed. Correct patient with 2 identifiers,type and amount of contrast used, correct body part and side all verified priorto examination. Images sent [facility] for review. - RLBTECHNIQUE: Axial computed tomography images of the abdomen and pelvis withintravenous contrast. / All CT scans at this facility use dose modulation,iterative reconstruction, and/or weight-based dosing when appropriate to reduceradiation dose to as low as reasonably achievable.CONTRAST:with intravenous contrast. With; UCD220, 75MlCOMPARISON:None provided.FINDINGS:LUNG BASES: The lung bases appear clear. No pleural effusions are seen.LIVER: Unremarkable.GALLBLADDER AND BILE DUCTS:The patient is status post cholecystectomy.PANCREAS: Unremarkable.SPLEEN: Unremarkable.ADRENAL GLANDS: Unremarkable.KIDNEYS, URETERS, AND BLADDER: The kidneys appear within normal limits. There isno hydronephrosis or hydroureter. No urinary calculi are seen.STOMACH AND BOWEL: Unremarkable appearance of the stomach and bowel. No evidenceof bowel obstruction. No evidence suggesting enteritis or colitis.APPENDIX:Appendix is normal.PERITONEUM: No free fluid. No free air.LYMPH NODES: No lymphadenopathy is evident.REPRODUCTIVE: Unremarkable as visualized.VASCULATURE: No evidence of abdominal aortic aneurysm.BONES: No aggressive appearing osseous lesion. No acute osseous pathologyevident.IMPRESSION:1. Appendix is normal.2. The patient is status post cholecystectomy.While performing the above CT examination, radiation dose reduction wasaccomplished utilizing automated exposure control, adjusting of the mA and kVbased on the patient's body size and/or the use of imperative reconstructivetechniques.Electronically Signed By:Jose Waddell MD , RadiologistDate/Time: 08/28/20 02:04 Name Value Range Interpretation Code Description Data Rachel rce(s) Supporting Document(s) ID Date Data Source [id number] 08/28/2020 10:45:00 AM EDT [facility] Name Value Range Interpretation Code Description Data Rachel rce(s) Supporting Document(s) COVID-19 RT-PCR PATTERNMAKER PLASTER SWAB TNP [facility] Sample tube arrived without Viral Transp ort Media, unable to perform test. No evidence of sample leakage. Sample tube arrived without Viral Transport Media, unable to perform test. No evidence of sample leakage. ID Date Data Source [id number] 08/28/2020 10:45:00 AM EDT [facility] Name Value Range Interpretation Code Description Data Rachel rce(s) Supporting Document(s) Non-Conformance #NOMEDIA [facility] Sample tube arrived without Viral Transp ort Media, unable to perform test. No evidence of sample leakage. ID Date Data Source [id number] 08/28/2020 10:45:00 AM EDT [facility] Name Value Range Interpretation Code Description Data Rachel rce(s) Supporting Document(s) REJECTED SPECIMEN #NOMEDIA [facility] Sample tube arrived without Viral Transp ort Media, unable to perform test. No evidence of sample leakage. ID Date Data Source [id number] 08/27/2020 10:54:00 PM EDT [facility] 1 OrderSheet [facility] Emergency Department [address] [place] [address] Phone #: ext- [phone] 08/27/2020 22:53 Patient: ZARIA CAR Sex: F : 1995 Age: 25yWEIGHT:74.8 kg (S) HEIGHT:67 inches (S) BMI:25.9ALLERGIES: No Known Drug AllergyCHIEF COMPLAINT: abdominal painDIAGNOSIS: Viral disease, DiarrheaLAB ORDERSOrder Description Priority Entered Acknowledged InitialedCBC w Diff STAT 23:08/27/2020 23:20 Yue Wei Riccardo Laura R.N. M.D.;CMP STAT 23:08/27/2020 23:20 Yue Wei Riccardo Laura R.N. M.D.;Lipase STAT 23:08/27/2020 23:20 Yue Wei Riccardo Laura R.N. M.D.;Urinalysis (Clean STAT 23:08/27/2020 23:20 Sanjuana,Catch) Tj Turner R.N., M.D.;Beta-HCG, Qual STAT 23:08/27/2020 23:20 Sanjuana,Serum Tj Turner R.N., M.D.;Lactic Acid STAT 23:08/27/2020 23:20 Yue Wei Riccardo Laura R.N. M.D.;DIAGNOSTIC STUDY ORDERSOrder Description Priority Entered Acknowledged InitialedCT Abd PEL W/ IV STAT 00:21 08/28/2020 00:21 Bisha,Contrast Only Tj Turner(Oxygen?(No)) Tejas;(IV?(Yes)) Reason for Study: abdominal pain, LUQ, RLQ, DiarrheaMEDICATION/IV/DRIP/FLUID ORDERSOrder Description Priority Entered Acknowledged InitialedNS IV 1000 mL 23:08/27/2020 23:31 Sanjuana,Bolus: : Bolus 1000 Turrin, Tj Sarah R.N. 2 OrderSheet [facility] Emergency Department [address] [place] [address] Phone #: ext- [phone] 08/27/2020 22:53 Patient: ZARIA CAR Sex: F : 1995 Age: 25ymL (X1) M.D.;Protonix IV Push 40 23:08/27/2020 23:31 Braxtono,mg (in 10 mL NS, Turkya, Tj Sarah R.N.administer over at M.D.;least 2 minutes,NOW x1)Ofirmev IV 1000 mg 23:08/27/2020 23:31 Sajnuana,(NOW x1, Infuse Turrin, Tj Sarah R.N.over 15 minutes) Tejas;NS IV 1000 mL 00:21 08/28/2020 00:29 Nilsa,Bolus: : Bolus 1000 Tj TurnermL (X1) Tejas;Toradol 15 mg IVP 00:58 08/28/2020 01:02 Brittanyjocelinrandy,X1 dose: 15 mg Tj Turner R.NAzul(NOW x1) Tejas;GENERAL ORDERSOrder Description Priority Entered Acknowledged InitialedNPO 23:09 08/27/2020 23:20 Yue Wei Riccardo Laura R.N. M.D.;Saline Lock 23:09 08/27/2020 23:20 Yue Wei Riccardo Laura R.N. M.D.;[Electronically signed by Eros Ash (02:24 08/28/2020)][Electronically signed by Tj Turner M.D. (05:33 08/28/2020)][Electronically locked by Eros Ash (02:24 08/28/2020)] Name Value Range Interpretation Code Description Data Rachel rce(s) Supporting Document(s) ID Date Data Source [id number] 08/27/2020 10:54:00 PM EDT [facility] 1 Medication Reconciliation Report [facility] Emergency Department [address] [place] [address] Phone #: ext- [phone] 08/27/2020 22:53 Patient: ZARIA CAR Sex: F : 1995 Age: 25yWeight: 74.8 kgHeight/Length: 67 in.BMI: 25.9ALLERGIES: No Known Drug AllergyThe patient's Home Medications are listed below:NONE.The source(s) of the original Home Medication information:Not obtained.The following Medications were given to the patient in the Emergency Department:Sodium Chl oride [IV] IV Fluids bolus 0, then 1000 mL/hr, administered: 23:08/27/2020ROTONIX [IVP] IVP 40 mg, administered: 23:08/27/2020ofirmev Drip IV bolus 0, then 1000, administered: 23:08/27/2020NS [IV] IV Fluids bolus 1000 mL over 40 minute(s), administered: 00:29 08/28/2020Toradol [IVP] IVP 15 mg, administered: 01:02 08/28/2020The following Medications were prescribed to the patient:None. Name Value Range Interpretation Code Description Data Rachel rce(s) Supporting Document(s) ID Date Data Source [id number] 08/27/2020 10:54:00 PM EDT [facility] 1 Medication Administration Record [facility] Emergency Department [address] [place] [address] Phone #: ext- [phone] 08/27/2020 22:53 Patient: ZARIA CAR Sex: F : 1995 Age: 25yWeight: 74.8 kgHeight/Length: 67 inBMI: 25.9ALLERGIES: No Known Drug Allergy Date/Time Medication Administered Medication OrderedStart SODIUM CHLORIDE [IV] NS IV 1000 mL Bolus: : Bolus [id number]:08/27/2020 Dose: IV Fluids mL (X1)Sarah Wei REj Rate: 1000 mL/hr over 1 hour(s)---- Dispensed: 1000 mL bagStop Site: #1 left AC00:28 1BEros torres,Given PROTONIX [IVP] (PANTOPRAZOLE Protonix IV Push 40 mg (in 10 mL23:08/27/2020 SODIUM) NS, administer over at least 2MSarah english R.N. Dose: 40 mg IVP minutes, NOW x1) Site: #1 left ACStart ofirmev * Ofirmev IV 1000 mg (NOW x1,23:31 08/27/2020 Dose: 1000 * Drip IV Infuse over 15 minutes)Sarah Wei R.N.----Stop23:47 08/27/2020Sarah Wei R.N.Start NS [IV] NS IV 1000 mL Bolus: : Bolus [id number] 08/28/2020 Dose: IV Fluids mL (X1)Eros Ash, Bolus: 1000 mL over 40 minute(s)---- Dispensed: 1000 mL bagStop Site: #1 left AC01:26 08/28/2020Sarah Wei R.N.Given TORADOL [IVP] (KETOROLAC Toradol 15 mg IVP X1 dose: 15 mg01:02 08/28/2020 TROMETHAMINE) (NOW x1)Sarah Wei R.N. Dose: 15 mg IVP Site: #1 left AC Name Value Range Interpretation Code Description Data Rachel rce(s) Supporting Document(s) ID Date Data Source [id number] 08/27/2020 10:54:00 PM EDT [facility] 1 General Instructions [facility] Emergency Department [address] [place] [address] Phone #: ext- [phone] 08/27/2020 22:53 Patient: ZARIA CAR Sex: F : 1995 Age: 25yDiarrheaAcute viral syndromeINSTRUCTIONSDrink plenty of fluids. Avoid alcohol and NSAIDS. NSAIDS include aspirin, ibuprofen (Advil) and naproxen(Aleve). Avoid fatty, fried/greasy, lactose-containing (such as milk, cheese and ice cream), salty and spicyfoods. No alcohol. Do not smoke.Warnings: Further evaluation is necessary. It is very important to follow up with a healthcare provider.GENERAL WARNINGS: Return or contact your physician immediately if your condition worsens orchanges unexpectedly, if not improving as expected, or if other problems arise. SPECIFICALLY, return ifyou develop pain in the abdomen, pelvis, back or shoulder, fever, vomiting, the inability to ke ep fluidsdown, blood in vomitus, blood in diarrhea, fainting or lightheadedness.Your Current Medications: .No home medication.Follow-up:Return to the emergency department as needed. Follow up with your healthcare provider in two days ifnot better. Call for an appointment. Reason for referral: evaluation and treatment. Summary of careprovided to patient via paper.Understanding of the discharge instructions verbalized by patient. Expected course of illness, dischargeinstructions, activity level, diet, follow- up appointment and risks and benefits of treatment reviewed withpatient and understanding verbalized. Agrees to plan of care. ADDITIONAL INFORMATIONViral Diarrhea (Adult) 2 General Instructions [facility] Emergency Department [address] [place] [address] Phone #: ext- [phone] 08/27/2020 22:53 Patient: ZARIA CAR Sex: F : 1995 Age: 25yDiarrhea caused by a virus is often called viral gastroenteritis. Many people call it the "stomach flu,"but it has nothing to do with influenza. The virus that causes diarrhea affects the stomach andintestinal tract and usually lasts from 2 to 7 days. Diarrhea is the passing of loose, watery stools 3 ormore times a day.SymptomsAlong with diarrhea, you may have these symptoms: Abdominal pain and cramping Nausea and vomiting Loss of bowel control Fever and chills Bloody stoolsThe danger from repeated diarrhea is dehydration. Dehydr ation is the loss of too much water andother fluids from the body without taking in enough to replace what is lost. 3 General Instructions [facility] Emergency Department [address] [place] [address] Phone #: ext- [phone] 08/27/2020 22:53 ---- Patient: ZARIA CAR Sex: F : 1995 Age: 25yAntibiotics are not effective in this illness, but there are a number of things you can do at home thatwill help.Home careFollow these home care measures: If symptoms are severe, rest at home for the next 24 hours or until you are feeling better. Wash your hands with soap and water or alcohol-based drier take off tender to prevent the spread of infection. Wash your hands after touching anyone who is sick. Wash your hands after using the toilet and before meals. Clean the toilet after each use.Food preparation: People with diarrhea should not prepare food for others. When preparing foods, wash your hands after touching anyone who is sick. Wash your hands after using cutting boards, countertops, and knives that have been in contact with raw food. Keep uncooked meats away from cooked and bziza-rd-ulz foods.Medicines: You may use acetaminophen or NSAIDS such as ibuprofen or naproxen to control fever unless another medicine was prescribed. If you have chronic liver or kidney disease or ever had a stomach ulcer or gastrointestinal bleeding, talk with your healthcare provider before using these medicines. Aspirin should never be used in anyone under 18 years of age who is ill with a fever. It may cause severe liver damage. Don't use NSAID medicines if you are already taking one for another condition (like arthritis) or are on aspirin (such as for heart disease or after a stroke). Anti-diarrhea medicine should be taken for this condition only if advised by your healthcare provider. Sometimes anti-diarrhea medicine can make your condition worse. If you have bloody diarrhea or fever, check with your healthcare provider before taking antidiarrheals.Diet: Water and clear liquids are important so you don't get dehydrated. Drink small amounts at a time, don't guzzle it down. If you are very dehydrated, sports drinks aren't a good choice. They have too much sugar and not enough electrolytes. In this case, commercially available products called oral rehydration solutions are best. Caffeine, tobacco, and alcohol can make the diarrhea, cramping, and pain worse. 4 General Instructions [facility] Emergency Department [address] [place] [address] Phone #: ext- [phone] 08/27/2020 22:53 Patient: ZARIA CAR Sex: F : 1995 Age: 25y Don't force yourself to eat, especially if you have cramping, vomiting, or diarrhea. Don't eat large amounts at a time, even if you are hungry. It may make you feel worse. If you eat, avoid fatty, greasy, spicy, or fried foods. No dairy products, as they can make diarrhea worse.During the first 24 Hours (the first full day) follow the diet below: Beverages: Water, clear liquids, soft drinks without caffeine; ligia davin, mineral water (plain or flavored), decaffeinated tea and coffee. Soups: Clear broth, consomm and bouillon Desserts: Plain gelatin, popsicles and fruit juice barsDuring the next 24 hours (the second day) you may add the following to the above if you haveimproved: Hot cereal, plain toast, bread, rolls, crackers Plain noodles, rice, mashed potatoes, chicken noodle or rice soup Unsweetened canned fruit like applesauce and bananas (avoid pineapple and citrus) Limit fat intake to less than 15 grams per day by avoiding margarine, butter, oils, mayonnaise, sauces, gravies, fried foods, peanut butter, meat, poultry and fish. Limit fiber; avoid raw or cooked vegetables, fresh fruits (except bananas) and bran cereals. Limit caffeine and chocolate. No spices or seasonings except salt.During the next 24 hours Gradually resume a normal diet, as you feel be tter and your symptoms improve. If at any time the diarrhea or cramping gets worse, go back to the simpler diet (above) or to clear liquids.Follow-up careFollow up with your healthcare provider, or as advised. Call if you are not improving within 24 hoursor if the diarrhea lasts more than one week. This is especially true if you are in a high-risk group. Forexample, if you are very elderly, have a weak immune system (from cancer treatment for example), oryou have inflammatory bowel disease (Crohn's or colitis).If a stool (diarrhea) sample was taken, you may call in 2 days (or as directed) for the results.When to seek medical advice 5 General Instructions [facility] Emergency Department [address] [place] [address] Phone #: ext- [phone] 08/27/2020 22:53 Patient: ZARIA CAR Sex: F : 1995 Age: 25yCall your healthcare provider right away if any of the following occur: Increasing abdominal pain or constant lower right abdominal pain Continued vomiting (unable to keep liquids down) Frequent diarrhea (more than 5 times a day) Blood in vomit or stool (black or red color) Reduced oral intake Dark urine, reduced urine output Weakness, dizziness Drowsiness Fever of 100.4F (38C) oral or higher, or as directed by your healthcare provider Yuriy Emery 911Call [phone] if any of the following occur: Trouble breathing Confused Severe drowsiness or trouble awakening Fainting or loss of consciousness Rapid heart rate Seizure Stiff neck [employer]. [address] [place] [address]. All rights reserved. This information is not intended as asubstitute for professional medical care. Always follow your healthcare professional's instructions.Viral Syndrome (Adult)A viral illness may cause a number of symptoms such as fever. Other symptoms depend on the partof the body that the virus affects. If it settles in your nose, throat, and lungs, it may cause cough, sorethroat, congestion, runny nose, headache, earache and other ear symptoms, or shortness of breath.If it settles in your stomach and intestinal tract, it may cause nausea, vomiting, cramping, and 6 General Instructions [facility] Emergency Department [address] [place] [address] Phone #: ext- [phone] 08/27/2020 22:53 Patient: ZARIA CAR Sex: F : 1995 Age: 25ydiarrhea. Sometimes it causes generalized symptoms like "aching all over," feeling tired, loss ofenergy, or loss of appetite.A viral illness usually lasts anywhere from several days to several weeks, but sometimes it lastslonger. In some cases, a more serious infection can look like a viral syndrome in the first few days ofthe illness. You may need another exam and additional tests to know the difference. Watch for thewarning signs listed below for when to seek medical advice.Home careFollow these guidelines for taking care of yourself at home: If symptoms are severe, rest at home for the first 2 to 3 days. Stay away from cigarette smoke - both your smoke and the smoke from others. You may use iwji-hoo-cmcfaob acetaminophen or ibuprofen for fever, muscle aching, and headache, unless another medicine was prescribed for this. If you have chronic liver or kidney disease or ever had a stomach ulcer or gastrointestinal bleeding, talk with your healthcare provider before using these medicines. No one who is younger than 18 and ill with a fever should take aspirin. It may cause severe disease or . Your appetite may be poor, so a light diet is fine. Avoid dehydration by drinking 8 to 12, 8- ounce glasses of fluids each day. This may include water; orange juice; lemonade; apple, grape, and cranberry juice; clear fruit drinks; electrolyte replacement and sports drinks; and decaffeinated teas and coffee. If you have been diagnosed with a kidney disease, ask your healthcare provider how much and what types of fluids you should drink to prevent dehydration. If you have kidney disease, drinking too much fluid can cause it build up in the your body and be dangerous to your health. Lqim-rwf-kttqnid remedies won't shorten the length of the illness but may be helpful for symptoms such as cough, sore throat, nasal and sinus congestion, or diarrhea. Don't use decongestants if you have high blood pressure.Follow-up careFollow up with your healthcare provider if you do not improve over the next week.Call [phone] if any of the following occur: Convulsion Feeling weak, dizzy, or like you are going to faint 7 General Instructions [facility] Emergency Department [address] [place] [address] Phone #: ext- [phone] 08/27/2020 22:53 Patient: ZARIA CAR Sex: F : 1995 Age: 25y Chest pain, or more than mild shortness of breathWhen to seek medical adviceCall your healthcare provider right away if any of these occur: Cough with lots of colored sputum (mucus) or blood in your sputum Chest pain, shortness of breath, wheezing, or trouble breathing Severe headache; face, neck, or ear pain Severe, constant pain in the lower right side of your belly (abdominal) Continued vomiting (can't keep liquids down) Frequent diarrhea (more than 5 times a day); blood (red or black color) or mucus in diarrhea Feeling weak, dizzy, or like you are going to faint Extreme thirst Fever of 100.4F (38C) or higher, or as directed by your healthcare provider [id number] [employer]. [address] [place] [address], [place] [address]. All rights reserved. This information is not intended as asubstitute for professional medical care. Always follow your healthcare professional's instructions. You have been given the following additional information: Diarrhea, Viral (Adult) Viral Syndrome (Adult)(Electronically signed by Tj Turner M.D. 08/28/2020 05:33) Name Value Range Interpretation Code Description Data Rachel rce(s) Supporting Document(s) ID Date Data Source [id number] 08/27/2020 10:54:00 PM EDT [facility] 1 Clinical Report - Nurses [facility] Emergency Department [address] [place] [address] Phone #: ext- [phone] 08/27/2020 22:53 Patient: ZARIA CAR Sex: F : 1995 Age: 25yTRIAGEArrived by private vehicle. Historian: patient.Acuity: LEVEL 3.Chief Complaint: ABDOMINAL PAIN.Alert. No acute distress.( Patient arrives c/o abdominal pain. Pt reports she went to urgent care for sore throat, when they testedher for strep she noticed she had pain in her abdomen. Pt was told to come to ER if symptoms persisted.Pt states her was exposed to someone with COVID, her rapid test came back negative. Pt denies,n/v/d. Pt describes pain as cramping and states she was incontinent of stool after she left urgent care andunable to pass gas.).Treatment [employer] [employer]:(Motrin last 1600, naproxen). --23:04 08/27/20 Sarah Wei RAzulNAzul22:58 08/27/20. BP: 133/79. MAP : 97. HR: 108. RR: 16. O2 saturation: 100% on room air. Temp: 97.5 F.Pain level now: 8/10. --23:04 08/27/20 Sarah Wei R.N.Weight: 74.8 kg stated. Height/Length: 67 inches Per Patient. BMI: 25.9. --23:03 08/27/20 Sarah Wei R.N.MedicationsNone. --23:02 08/27/20 Sarah Wei R.N.AllergiesNo Known Drug Allergy. --23:02 08/27/20 Sarah Wei R.N.PROBLEMS:Ectopic .Abdominal Pain.Ovarian Cyst.Migraine Headache. --23:02 08/27/20 Sarah Wei R.N.ADDITIONAL SURGERIES:Cholecystectomy.C- Section.Salpingectomy. --23:02 08/27/20 Sarah Wei R.N.History 2 Clinical Report - Nurses [facility] Emergency Department [address] [place] [address] Phone #: ext- [phone] 08/27/2020 22:53 Patient: ZARIA CAR Sex: F : 1995 Age: 25y PAST MEDICAL HX: Immunizations: up-to-date. Last normal menstrual period- July 26. SOCIAL HX: Light tobacco smoker (cigarette)- less than 1/2 a pack per day. Occasional alcohol use. No drug use. ( was exposed to COVID + person, Rapid COVID test came back negative.). She has not t raveled outside the [place] Infectious disease exposure: No infectious disease exposure. Patient is not a known carrier of tuberculosis, hepatitis, HIV, MRSA or VRE. Patient is not a known carrier of CRE. SELF HARM ASSESSMENT: Self harm assessment was performed. The patient answered "no" to the question(s) "Have you recently felt down, depressed, or hopeless?", "Do you have thoughts of harming or killing yourself?", "Do you have a plan for harming or killing yourself?", "Have you recently had thoughts about harming or killing others?", "Do you have any dangerous items in your possession?", "Have you noticed less interest or pleasure in doing things?", "Are you here because you tried to hurt yourself?" and "Have you ever tried to hurt yourself before today?". ABUSE ASSESSMENT: Abuse assessment. The patient had positive responses to the question(s) "Do you feel safe in your home?", "Are you afraid to go home?" and "Has anyone hurt you or threatened to hurt you?". Abuse denied. No suspicion of abuse. NUTRITIONAL RISK ASSESSMENT: The nutritional risk assessment revealed no deficiencies. FUNCTIONAL ASSESSMENT: Functional assessment: no impairments noted. LEARNING NEEDS ASSESSMENT: The learning needs assessment revealed no barriers. FALL RISK ASSESSMENT: Fall risk assessment completed. No risk factors identified. SKIN INTEGRITY ASSESSMENT: Skin integrity risk assessment completed. No skin integrity risk identified. --23:04 08/27/20 Sarah Wei R.N. Interventions Identification band on patient. To treatment room. --23:08/27/20 Sarah Wei R.N.PHYSICAL ASSESSMENTAmbulatory to room. Patient gowned.GENERAL / NEURO / PSYCH: Alert. Oriented X 4. Appears in no acute distress.HEENT: Mucous membranes are pink.RESPIRATORY: Respirations not labored. Breath sounds within normal limits.CVS: Normal sinus rhythm noted. Capillary refill less than 2 seconds.GI / : Abdomen soft and nontender. Bowel sounds within normal limits. ( Abdominal cramping. Ptreports incontinent of stool earlier today x1 episode.).SKIN: Skin is warm and dry. --23:05 08/27/20 Sarah Wei R.N.NURSING PROGRESS NOTESMonitoring of patient in place. Patient gowned. Head of bed elevated. Reassurance given. Two 3 Clinical Report - Nurses [facility] Emergency Department [address] [place] [address] Phone #: ext- [phone] 08/27/2020 22:53 Patient: ZARIA CAR Sex: F : 1995 Age: 25ypatient identifiers checked. Call light placed in reach. Side rails up x 2. Bed placed in lowest position.Brakes of bed on. --23:04 08/27/20 Sarah Wei R.N.23:30 08/27/2020 Site #1 started via IV in the left antecubital space with an 20g angiocath, with aseptictechnique; one attempt. Blood drawn: rainbow set. Sent to the lab. Saline lock flushed with 10 mL saline.--23:30 08/27/20 Sarah Wei R.N.23:08/27/2020 Started bag #1 1000 mL IV Fluids Sodium Chloride; at 1000 mL/hr over 1 hour(s) via site#1 via IV pump. Allergies verified and confirmed 5 rights. IV patency established. IV site checked: no pain,redness, or swelling. IV flushed thoroughly pre- and post-medication administration. Information reviewedwith patient. Verbalizes understanding. --23:08/27/20 Sarah Wei R.N.23:08/27/2020 PROTONIX (Pantoprazole Sodium) IVP 40 mg given over 2 minute(s) via site #1.Allergies verified and confirmed 5 rights. IV patency established. IV site checked: no pain, redness, orswelling. IV flushed thoroughly pre- and post-medication administration. IVP given by RN. Informationreviewed with patient. Verbalizes understanding. --23:08/27/20 Sarah Wei R.N.23:08/27/2020 ofirmev * Drip IV 1000 --23:08/27/20 Sarah Wei R.N.The patient is calm and resting quietly. --00:18 4 Sarah Wei R.N.00:17 08/28/20. BP: 130/70. MAP: 90. HR: 88. RR: 17. O2 saturation: 100% on room air. --00:184 Sarah Wei R.N.23:47 08/27/2020 Ofirmev Drip IV Discontinued: completed. Total amount infused: 100 mL. IV patencyestablished. IV site checked: no pain, redness, or swelling. IV flushed thoroughly. --00:25 08/28/20Sarah Wei R.N.00:28 08/28/2020 IV Fluids Sodium Chloride via IV site #1 Discontinued: bag #1 infused. Total amountinfused: 1000 mL. IV patency established. IV site checked: no pain, redness, or swelling. IV flushedthoroughly. --00:28 08/28/20 Eros Ash00:29 08/28/2020 Started bag #2 1000 mL IV Fluids NS; bolus of 1000 mL over 40 minute(s) via site #1 viaIV pump. Allergies verified and confirmed 5 rights. IV patency established. IV site checked: no pain,redness, or swelling. IV flushed thoroughly pre- and post-medication administration. Information reviewedwith patient including reason for taking this medication, signs of allergic reaction and precautions.Verbalizes understanding. --00:29 08/28/20 Eros Ash01:02 08/28/2020 Toradol (Ketorolac Tromethamine) IVP 15 mg given via site #1. Allergies verified andconfirmed 5 rights. IV patency established. IV site checked: no pain, redness, or swelling. IV flushedthoroughly pre- and post- medication administration. IVP given by RN. Information reviewed with patient.Verbalizes understanding. --01:02 08/28/20 Sarah Wei R.N.The patient is calm and resting quietly. --01:04 08/28/20 Sarah Wei R.N. 4 Clinical Report - Nurses [facility] Emergency Department [address] [place] [address] Phone #: ext- [phone] 08/27/2020 22:53 [id number] Sex: F : 1995 Age: 25y 01:08/28/20. BP: 111/88. MAP: 95. HR: 87. RR: 17. O2 saturation: 100% on room air. --01:08/28/20 Sarah Wei R.N. 01:08/28/2020 IV Fluids NS via IV site #1 Discontinued: bag #2 completed. Total amount infused: 1000 mL. --01:08/28/20 Sarah Wei R.N. The patient is calm and resting quietly. --02:08/28/20 Sarah Wei R.N. 02:08/28/20. BP: 121/71. MAP: 87. HR: 82. RR: 17. O2 saturation: 100% on room air. --02:08/28/20 Sarah Wei R.N.DISPOSITION / DISCHARGE Condition at departure: stable. No learning barriers present. Discharge instructions provided and reviewed with the patient. Reviewed warnings (return for worsening symptoms). Reviewed referral to a primary care physician. Reviewed need for increased fluid intake. Reviewed need to stop smoking. Patient verbalized understanding. Written instructions provided in Maltese. No medication instructions or treatment instructions. The patient was discharged by the physician. She was discharged home. She left ambulatory and via private vehicle. Patient driving. --02:08/28/20 Eros Ash 02:08/28/20. BP: 112/68 taken on the left arm, via an automated monitor, while lying. MAP: 82. HR: 80 (regular, normal rate and strong). RR: 16 (regular, unlabored and normal). O2 saturation: 100% on room air. Temp: 98.4 F (oral). Pain level now: 0/10. --02:08/28/20 Eros Ash.Locked/Released at 08/28/2020 02:24 by Eros Ash Name Value Range Interpretation Code Description Data Rachel rce(s) Supporting Document(s) ID Date Data Source [id number] 08/27/2020 10:54:00 PM EDT [facility] 1 Clinical Report - Physicians/Mid Levels [facility] Emergency Department [address] [place] [address] Phone #: ext- [phone] 08/27/2020 22:53 Patient: ZARIA CAR Sex: F : 1995 Age: 25y Time Seen: 22:59 08/27/2020; initial patient contact. Arrived- By private vehicle. Historian- patient. Disposition decision: 02:15 08/28/2020.HISTORY OF PRESENT ILLNESS Chief Complaint: ABDOMINAL PAIN. This started today and is still present. It was gradual in onset and has been intermittent. It is described as "pain" and sharp and it is described as located in the left upper quadrant and left abdomen. At its maximum, severity described as severe and 8 / 10. When seen in the E.D., severity described as severe and 8 / 10. Modifying factors- worsened by movement and food. Relieved by rest. Not relieved by anything. No nausea, loss of appetite or vomiting. She has had mild diarrhea (3 times). Similar symptoms previously. ( was here on 08-14-20 for same after visiting [facility] ER on 08-11, workup and CTAP were nml, referred to [facility], seen once there, and was told that pain was probably from scar tissue). Recent medical care: The patient was seen recently in a clinic. ( at today, rapid strep and rapid Covid negative).REVIEW OF SYSTEMSNo constipation, black stools, hematemesis, difficulty with urination or pain with urination. No urinaryfrequency, bloody stools, fever, headache or sore throat. No blurred vision, chest pain, difficulty breathing,cough or joint pain. No skin rash, chills or back pain. The patient has not had weight loss. All othersystems reviewed and are negative.PAST HISTORYSee nurses notes. Problems: Ectopic . Abdominal Pain. Ovarian Cyst. Migraine Headache. Additional Surgeries: Cholecystectomy. . Salpingectomy. Medications: None. Allergies: 2 Clinical Report - Physicians/Mid Levels [facility] Emergency Department [address] [place] [address] Phone #: ext- [phone] 08/27/2020 22:53 Patient: ZARIA CAR Sex: F : 1995 Age: 25y No Known Drug Allergy.SOCIAL HISTORYLight tobacco smoker- less than 1/2 a pack per day. Occasional alcohol use. No drug use.ADDITIONAL NOTESThe nursing notes have been reviewed with agreement regarding the chief complaint, HPI, ROS, PMH andpatient medications and allergies.PHYSICAL EXAMVital Signs: 08/27/2020 22:58 BP: 133/79. MAP: 97. HR: 108. RR: 16. O2 saturation: 100% on room air.Temp: 97.5 F. Pain level now: 8/10. Have been reviewed. Oxygen saturation normal.Appearance: Alert. Oriented X3. No acute distress. Anxious.Eyes: Pupils equal, round and reactive to light. Eyes normal inspection.ENT: Nose normal. Pharynx normal.Neck: Normal inspection. Neck supple.CVS: Normal heart rate and rhythm. Heart sounds normal. Pulses normal.Respiratory: No respiratory distress. Painless inspiration. Breath sounds normal. Chest nontender.Abdomen: Soft. Mild tenderness in the left upper quadrant and left side of the abdomen. No guarding orrebound tenderness. Bowel sounds normal. No organomegaly. No mass. Femoral pulses equal.Back: Normal inspection. No CVA tenderness.Skin: Skin warm and dry. Normal skin color. No rash. Normal skin turgor.Extremities: Extremities exhibit normal ROM. No lower extremity edema.Neuro: Oriented X 3. No motor deficit. No sensory deficit.LABS, X-RAYS, AND EKGAbdominal CT: REPORT SUBMISSION DATE: Aug 28, 2020 2:04:10 AM EDT NAME: ZARIA CAR STUDY INITIATED: Aug 28, 2020 12:29:21 AM EDT STUDY RECEIVED: Aug 28, 2020 1:01:26 AM EDT GENDER: F MODALITY TYPE: CT\\SR : 89 DESCRIPTION: CT ABD //T// PELVIS W/ IV ONLY INSTITUTION: [facility] ORDERING PHYSICIAN: Tj Turner PATIENT HISTORY: Abdominal pain, LUQ, RLQ, Diarrhea. Accumulated DLP-675.9 mGy*cm, Estimated DLP-665.6 mGy*cm. Neg BEta. [id number], 75mL, [id number], 09/30. Labs verified and scanned. Time Out performed. Correct patient with 2 identifiers, type and amount of contrast used, correct body part and side all verified prior to examination. Images sent toOnePacs for review. - RLB (Hx) / CORONAL (DICOM Hx) 3 Clinical Report - Physicians/Mid Levels [facility] Emergency De partment [address] [place] [address] Phone #: ext- [phone] 08/27/2020 22:53 Patient: ZARIA CAR Sex: F : 1995 Age: 25yEXAM: CT Abdomen and Pelvis with IV contrastCLINICAL HISTORY: Abdominal pain, LUQ, RLQ, Diarrhea. Accumulated DLP-675.9 mGy*cm, EstimatedDLP-665.6 mGy*cm. Neg BEta. [id number], 75mL, [id number], 09/30. Labs verified and scanned. Time Outperformed. Correct patient with 2 identifiers, type and amount of contrast used, correct body part and sideall verified prior to examination. Images sent to[facility] for review. - RLBTECHNIQUE: Axial computed tomography images of the abdomen and pelvis with intravenous contrast. /All CT scans at this facility use dose modulation, iterative reconstruction, and/or weight-based dosing whenappropriate to reduce radiation dose to as low as reasonably achievable.CONTRAST: with intravenous contrast. With; [id number], 75MlCOMPARISON: None provided.FINDINGS:LUNG BASES: The lung bases appear clear. No pleural effusions are seen.LIVER: Unremarkable.GALLBLADDER AND BILE DUCTS: The patient is status post cholecystectomy.PANCREAS: Unremarkable.SPLEEN: Unremarkable.ADRENAL GLANDS: Unremarkable.KIDNEYS, URETERS, AND BLADDER: The kidneys appear within normal limits. There is nohydronephrosis or hydroureter. No urinary calculi are seen.STOMACH AND BOWEL: Unremarkable appearance of the stomach and bowel. No evidence of bowelobstruction. No evidence suggesting enteritis or colitis.APPENDIX: Appendix is normal.PERITONEUM: No free fluid. No free air.LYMPH NODES: No lymphadenopathy is evident.REPRODUCTIVE: Unremarkable as visualized.VASCULATURE: No evidence of abdominal aortic aneurysm. 4 Clinical Report - Physicians/[facility] Emergency Department [address] [place] [address] Phone #: [phone]- [phone] 08/27/2020 22:53 Patient: ZARIA CAR Sex: F : 1995 Age: 25yBONES: No aggressive appearing osseous lesion. No acute osseous pathology evident.IMPRESSION:1. Appendix is normal.2. The patient is status post cholecystectomy.Electronically signed on Aug 28, 2020 2:04:10 AM EDT by:Wei Waddell MD, Ph.D.Diplomate, [employer]. Study type: abdomen and pelvis. Abdominal CT performedwith IV contrast. The study was interpreted by the radiologist.Laboratory Tests: Laboratory tests have been ordered, with results reviewed and considered in themedical decision making process.Beta-HCG, Quant Serum: (ABILIO: 08/27/2020 23:18) ( MsgRcvd 08/27/2020 23:44) Final results Test Result Flag Units (Reference) HCG QUANT <0.5 mIU/mL Interpretation: Less than 5 mU/mL: Negative6-10 mU/mL: Borderline (suggest repeat in 48 hours) >10: PositiveApprox HCG range (mU/mL) Weeks post LMP 5.4-708 mU/mL 3-4 Zwspv793-19409 mU/mL 5-6 Weeks 4059-619212 mU/mL 7-8 Gcwwv42130-128229 mU/mL 9-10 Weeks 05758-13683 mU/mL 12-14 Qayuv94279-54202 mU/mL 15-16 Weeks 8240-29995 mU/mL 17-18 WeeksCBC w Diff: (ABILIO: 08/27/2020 23:18) ( MsgRcvd 08/27/2020 23:46) Final results Test Result Flag Units (Reference) CBC W/AUTOMATED DIFF COMPLETE BLOOD COUNT WBC 11.8 H 10/uL (4.2 - 11.0) RBC 4.34 10/uL (4.20 - 5.40) HEMOGLOBIN 14.0 g/dL (12.0 - 16.0) HEMATOCRIT 41.4 % (37.0 - 47.0) MCV 95.4 fL (81.0 - 101) MCH 32.3 pg (27.0 - 34.0) MCHC 33.8 g/dL (31.0 - 36.0) RDW 12.5 % (11.5 - 14.5) PLATELETS 224 10/uL (150 - 450) MPV 10.4 fL (7.4 - 10.4) NEUT 76.5 % (37.0 - 80.0) LYMPH 17.2 L % (25.0 - 40.0) MONO 5.4 % (3.0 - 8.0) EOS 0.4 % (0.0 - 7.0) BASO 0.3 % (0.0 - 2.5) %IG 0.2 H % (0.0 - 0.0) %NRBC 0.0 % (0.0 - 0.0) #NEUT 9.02 H 10/uL (2.00 - 6.90) #LYMPH 2.02 10/uL (0.60 - 3.40) #MONO 0.63 10/uL (0.00 - 0.90) #EOS 0.05 10/uL (0.00 - 0.70) #BASO 0.03 10/uL (0.00 - 0.20) #IG 0.02 10/uL (0.00 - 0.10) #NRBC 0.00 10/uL (0.00 - 0.00) 5 Clinical Report - Physicians/Mid Levels [facility] Emergency Department [address] [place] [address] Phone #: ext- [phone] 08/27/2020 22:53 Patient: ZARIA CAR Sex: F : 1995 Age: 25y MANUAL DIFF SEE BELOW SEGS 82 H % (37 - 80) %LYMPH 12 L % (25 - 40) %MONO 5 % (3 - 8) %EOS 1 % (0 - 7) RBC MORPH MORPH IS NORMALCMP: (ABILIO: 08/27/2020 23:18) ( MsgRcvd 08/28/2020 00:00) Final results Test Result Flag Units (Reference) COMPREHENSIVE METABOLIC PANEL COMPREHENSIVE METABOLIC PANEL SODIUM 135 mEq/L (134 - 153) POTASSIUM 3.4 L mEq/L (3.6 - 5.0) CHLORIDE 100 mEq/L (98 - 107) CO2 23 MEQ/L (22 - 30) GLUCOSE 132 H MG/DL (70 - 99) BUN 9 MG/DL (7 - 21) CREATININE 0.5 L MG/DL (0.7 - 1.5) BUN/CREAT 18 (8 - 27) TOTAL PROTEIN 7.2 G/DL (6.3 - 8.2) ALBUMIN 4.5 G/DL (3.9 - 5.0) GLOBULIN 2.7 GM/DL (2.4 - 3.2) A/G RATIO 1.7 (0.8 - 2.0) CALCIUM 9.5 MG/DL (8.4 - 10.2) TOTAL BILI 0.7 MG/DL (0.2 - 1.3) ALKALINE PHOS 90 U/L (38 - 126) SGOT/AST 13 U/L (5 - 40) SGPT/ALT 10 U/L (7 - 56) ANION GAP 12.0 mmol/L (8.0 - 16.0) AGE 25 yrs NON-AA GFR >60 mL/min AFR AMER GFR >60 mL/min Male GFR Interprentation 20-49 yrs >60 mL/min Nvzdvt29-33 yrs >56 mL/min Normal 60-69 yrs >49 mL/min Normal 70-79yrs>42 mL/min Normal 80 and above >35 mL/min Normal Female GFRInterpretation 20-39 yrs >60 mL/min Normal 40-49 yrs >58 mL/minNormal 50-59 yrs >51 mL/min Normal 60-69 yrs >45 mL/min Njwcwe09-95 yrs >39 mL/min Normal 80 and above >32 mL/min NormalLipase: (ABILIO: 08/27/2020 23:18) ( Mscvd 08/27/2020 23:55) Final results Test Result Flag Units (Reference) LIPASE 28 U/L (13 - 60)Urinalysis: (ABILIO: 08/27/2020 23:18) ( [facility] [place] [facility] 08[facility]43) Final results Test Result Flag Units (Reference) URINALYSIS URINALYSIS SOURCE Clean Catch COLOR yellow (NORMAL: Yello CLARITY clear (NORMAL: Clear SPEC GRAVITY 1.010 (1.001 - 1.030 pH 6.5 (5 - 9) GLUCOSE NORM (NORMAL: Negat BILIRUBIN NEG (NORMAL: Negat KETONE 50 A (NORMAL: Negat PROTEIN 30 (NORMAL: Negat 6 Clinical Report - Physicians/Mid Levels [facility] Emergency Department [address] [place] [address] Phone #: ext- [phone] 08/27/2020 22:53 Patient: ZARIA CAR Sex: F : 1995 Age: 25y NITRITE NEG (NORMAL: Negat BLOOD NEG (NORMAL: Negat LEUK EST 25 (NORMAL: Negat UROBILINOGEN 1 (less than 1.0 MICROSCOPIC See Below WBC 1 - 3 (NORMAL: NONE RBC 0 - 1 (NORMAL: NONE EPITHELIAL FEW (NORMAL: NONE BACTERIA Trace (NORMAL: NONE MUCOUS Trace (NORMAL: NONE Beta-HCG, Qual Serum: (ABILIO: 08/27/2020 23:18) ( MsgRcvd 08/27/2020 23:22) Canceled Lactic Acid: (ABILIO: 08/27/2020 23:18) ( MsgRcvd 08/27/2020 23:42) Final results Test Result Flag Units (Reference) LACTIC ACID 2.7 H MMOL/L (0.2 - 2.2).PROGRESS AND PROCEDURESCourse of Care: 00:21 08/28/20. workup all in and reviewed; slight elevation WBC w shift, lactic slightlyhigh, K 3.4, UA not impressive, not , will order CTAP w IV, and give another litre of fluid 02:14 08/28/20. CTAP w IV results in and nml; pt feeling better, abdomen soft' probable viral diarrhea, viral syndrome; d/c instructions given, pt understands and agrees. Patient counseled in person regarding the patient's stable condition, test results, diagnosis and need for follow-up. Patient agrees with plan of care. Disposition: Condition: good and stable. Discharge decision based on the following: patient's condition is stable; patient's condition is improved; patient is ambulatory; patient is active; patient drinking fluids; patient eating; patient's pain is controlled; patient's exam is improved; no seriously abnormal test results; improving condition on multiple repeat evaluations; social support is good; transportation is available; follow-up is available; clinical impression is consistent with outpatient treatment.CLINICAL IMPRESSION Diarrhea Acute viral syndromeINSTRUCTIONS Drink plenty of fluids. Avoid alcohol and NSAIDS. NSAIDS include aspirin, ibuprofen (Advil) and naproxen (Aleve). Avoid fatty, fried/greasy, lactose-containing (such as milk, cheese and ice cream), salty and spicy 7 Clinical Report - Physicians/Mid Levels [facility] Emergency Department [address] [place] [address] Phone #: ext- [phone] 08/27/2020 22:53 Patient: ZARIA CAR Sex: F : 1995 Age: 25y foods. No alcohol. Do not smoke. Warnings: Further evaluation is necessary. It is very important to follow up with a healthcare provider. GENERAL WARNINGS: Return or contact your physician immediately if your condition worsens or changes unexpectedly, if not improving as expected, or if other problems arise. SPECIFICALLY, return if you develop pain in the abdomen, pelvis, back or shoulder, fever, vomiting, the inability to keep fluids down, blood in vomitus, blood in diarrhea, fainting or lightheadedness. Your Current Medications: . No home medication. Follow-up: Return to the emergency department as needed. Follow up with your healthcare provider in two days if not better. Call for an appointment. Reason for referral: evaluation and treatment. Summary of care provided to patient via paper. Understanding of the discharge instructions verbalized by patient. Expected course of illness, discharge instructions, activity level, diet, follow-up appointment and risks and benefits of treatment reviewed with patient and understanding verbalized. Agrees to plan of care.(Electronically signed by Tj Turner M.D. 08/28/2020 05:33) Name Value Range Interpretation Code Description Data Rachel rce(s) Supporting Document(s) ID Date Data Source [id number] 08/27/2020 11:59:00 PM EDT [facility] Name Value Range Interpretation Code Description Data Rachel rce(s) Supporting Document(s) COMPREHENSIVE METABOLIC PANEL [facility] COMPREHENSIVE METABOLIC PANEL Sodium [Moles/volume] in Serum or Plasma 135 mEq/L 134 - 153 [facility] Potassium [Moles/volume] in Serum or Plasma 3.4 mEq/L 3.6 - 5.0 L [facility] Chloride [Moles/volume] in Serum or Plasma 100 mEq/L 98 - 107 [facility] Carbon dioxide, total [Moles/volume] in Serum or Plasma 23 MEQ/L 22 - 30 [facility] Glucose [Mass/volume] in Serum or Plasma 132 MG/DL 70 - 99 H [facility] BUN 9 MG/DL 7 - 21 [facility] al Creatinine [Mass/volume] in Serum or Plasma 0.5 MG/DL 0.7 - 1.5 L [facility] BUN/CREAT 18 8 - 27 [facility] Protein [Mass/volume] in Serum or Plasma 7.2 G/DL 6.3 - 8.2 [facility] Albumin [Mass/volume] in Serum or Plasma 4.5 G/DL 3.9 - 5.0 [facility] Globulin [Mass/volume] in Serum by calculation 2.7 GM/DL 2.4 - 3.2 [facility] A/G RATIO 1.7 0.8 - 2.0 [facility] Calcium [Mass/volume] in Serum or Plasma 9.5 MG/DL 8.4 - 10.2 [facility] Bilirubin.total [Mass/volume] in Serum or Plasma 0.7 MG/DL 0.2 - 1.3 [facility] Alkaline phosphatase [Enzymatic activity/volume] in Serum or Plasma 90 U/L 38 - 126 [facility] Aspartate aminotransferase [Enzymatic activity/volume] in Serum or Plasma 13 U/L 5 - 40 [facility] Alanine aminotransferase [Enzymatic activity/volume] in Seru m or Plasma 10 U/L 7 - 56 [facility] Anion gap 3 in Serum or Plasma 12.0 mmol/L 8.0 - 16.0 [facility] AGE 25 yrs [facility] al NON-AA GFR >60 mL/min [facility] ital AFR AMER GFR >60 mL/min [facility] Male GFR In terprentation 20-49 yrs >60 mL/min Normal 50-59 yrs >56 mL/min Normal 60-69 yrs >49 mL/min Normal 70-79yrs >42 mL/min Normal 80 and above >35 mL/min Normal Female GFR Interpretation 20-39 yrs >60 mL/min Normal 40-49 yrs >58 mL/min Normal 50-59 yrs >51 mL/min Normal 60-69 yrs >45 mL/min Normal 70-79 yrs >39 mL/min Normal 80 and above >32 mL/min Normal ID Date Data Source [id number] 08/27/2020 11:55:00 PM EDT [facility] Name Value Range Interpretation Code Description Data Rachel rce(s) Supporting Document(s) Lipase [Enzymatic activity/volume] in Serum or Plasma 28 U/L 13 - 60 [facility] ID Date Data Source [id number] 08/27/2020 11:45:00 PM EDT [facility] Name Value Range Interpretation Code Description Data Rachel rce(s) Supporting Document(s) CBC W/AUTOMATED DIFF [facility] COMPLETE BLOOD COUNT Leukocytes [#/volume] in Blood by Automated count 11.8 10^3/uL 4.2 - 11.0 H [facility] Erythrocytes [#/volume] in Blood by Automated count 4.34 10^6/uL 4. 20 - 5.40 [facility] Hemoglobin [Mass/volume] in Blood 14.0 g/dL 12.0 - 16.0 [facility] Hematocrit [Volume Fraction] of Blood by Automated count 41.4 % 3 7.0 - 47.0 [facility] Erythrocyte mean corpuscular volume [Entitic volume] by Auto mated count 95.4 fL 81.0 - 101 [facility] Erythrocyte mean corpuscular hemoglobin [Entitic mass] by Automated count 32.3 pg 27.0 - 34.0 [facility] Erythrocyte mean corpuscular hemoglobin concentration [Mass/volume] by Automated count 33.8 g/dL 31.0 - 36.0 [facility] Erythrocyte distribution width [Ratio] by Automated count 12.5 % 11.5 - 14.5 [facility] Platelets [#/volume] in Blood by Automated count 224 10^3/uL 150 - 45 0 [facility] Platelet mean volume [Entitic volume] in Blood by Automated count 10.4 fL 7.4 - 10.4 [facility] Neutrophils/100 leukocytes in Blood by Automated count 76.5 % 37. 0 - 80.0 [facility] Lymphocytes/100 leukocytes in Blood by Manual count 17.2 % 25.0 - 40.0 L [facility] Monocytes/100 leukocytes in Blood by Automated count 5.4 % 3.0 - 8.0 [facility] Eosinophils/100 leukocytes in Blood by Automated count 0.4 % 0.0 - 7.0 [facility] Basophils/100 leukocytes in Blood by Automated count 0.3 % 0.0 - 2.5 [facility] %IG 0.2 % 0.0 - 0.0 H [facility] %NRBC 0.0 % 0.0 - 0.0 [facility] al Neutrophils [#/volume] in Blood by Automated count 9.02 10^3/uL 2.00 - 6.90 H [facility] Lymphocytes [#/volume] in Blood by Automated count 2.02 10^3/uL 0.60 - 3.40 [facility] Monocytes [#/volume] in Blood by Automated count 0.63 10^3/uL 0.00 - 0.90 [facility] Eosinophils [#/volume] in Blood by Automated count 0.05 10^3/uL 0.00 - 0.70 [facility] Basophils [#/volume] in Blood by Automated count 0.03 10^3/uL 0.00 - 0.20 [facility] #IG 0.02 10^3/uL 0.00 - 0.10 [facility] #NRBC 0.00 10^3/uL 0.00 - 0.00 [facility] ospital MANUAL DIFF SEE BELOW [facility] ital Segmented neutrophils/100 leukocytes in Blood by Manual count 82 % 37 - 80 H [facility] %LYMPH 12 % 25 - 40 L [facility] %MONO 5 % 3 - 8 [facility] %EOS 1 % 0 - 7 [facility] RBC MORPH MORPH IS NORMAL [facility] ID Date Data Source [id number] 08/27/2020 11:44:00 PM EDT [facility] Name Value Range Interpretation Code Description Data Rachel rce(s) Supporting Document(s) Choriogonadotropin.intact [Units/volume] in Serum or Plasma <0.5 mIU/ mL [facility] Interpr etation: Less than 5 mU/mL: Negative 6-10 mU/mL: Borderline (suggest repeat in 48 hours) >10: Positive Approx HCG range (mU/mL) Weeks post LMP 5.4-708 mU/mL 3-4 Weeks 217-85228 mU/mL 5-6 Weeks 4059-176325 mU/mL 7-8 Weeks 54530-487805 mU/mL 9-10 Weeks 09266-78793 mU/mL 12-14 Weeks 13040-93511 mU/mL 15-16 Weeks 8240- 61286 mU/mL 17-18 Weeks ID Date Data Source [id number] 08/27/2020 11:42:00 PM EDT [facility] Name Value Range Interpretation Code Description Data Rachel rce(s) Supporting Document(s) [facility]IS [facility] URINALYSIS SOURCE Clean Catch [facility] ital COLOR yellow NORMAL: Yellow [facility] CLARITY clear NORMAL: Clear [facility] Specific gravity of Urine by Test strip 1.010 1.001 - 1.030 [facility] pH 6.5 5 - 9 [facility] Glucose [Mass/volume] in Urine by Test strip NORM NORMAL: Negat [facility] Bilirubin.total [Presence] in Urine by Test strip NEG NORMAL: Negative [facility] Ketones [Presence] in Urine by Test strip 50 NORMAL: Negative [facility] Protein [Mass/volume] in Urine by Test strip 30 NORMAL: Negat [facility] Nitrite [Presence] in Urine by Test strip NEG NORMAL: Negative [facility] BLOOD NEG NORMAL: Negative [facility] Leukocyte esterase [Presence] in Urine by Test strip 25 JENNY L: Negative [facility] Urobilinogen [Mass/volume] in Urine by Test strip 1 less nathalia n 1.0 mg/dL [facility] MICROSCOPIC See Below [facility] ital WBC 1 - [address]: [address] [facility] Erythrocytes [#/volume] in Urine by Test strip 0 - 1 NORMAL: NON E SEEN [facility] EPITHELIAL FEW NORMAL: NONE SEEN [facility] Bacteria [Presence] in Urine sediment by Light microscopy Tr rosy NORMAL: NONE SEEN [facility] Mucus [Presence] in Urine sediment by Light microscopy Trace NORMAL: NONE SEEN [facility] ID Date Data Source [id number] 08/27/2020 11:42:00 PM EDT [facility] Name Value Range Interpretation Code Description Data Rachel rce(s) Supporting Document(s) Lactate [Moles/volume] in Serum or Plasma 2.7 MMOL/L 0.2 - 2.2 H [facility] ID Date Data Source [id number] 08/27/2020 12:00:00 AM EDT [facility] Name Value Range Interpretation Code Description Data Rachel rce(s) Supporting Document(s) Carestart Rapid COVID Antigen Test Negative [facility] This lab was reported by Chriss king. ID Date Data Source [id number] 08/15/2020 09:04:00 AM EDT [facility] [address] [place] [address] PHONE: [phone] FAX: [phone] Name .................. : JOCELINE Nguyễn Acct Number.................. : [id number] ROOM. ................. : TR-02 Number ................... : [id number] Stay type ............. : E/R Discharge Date......... ... : 08/14/20 Admit Date ......... : 08/14/20 Admit Phys .................... : COONEYNORM Date of ....... : 1995 Family Phys ................... : UNKNOWN Phone .................. : [phone] Age ................................ : 25 Film# .................. .:[id number] Sex ................................. : F Unsigned transcriptions are preliminary reports and do not represent a medical or legal document CT ABD & PELVIS W/ IV ONLY [id number] COMPLETE:08/14/20 19:22 ARLENE 8055 Reason(s): Abdominal Pain CT OF THE ABDOMEN AND PELVIS WITH CONTRAST: INDICATION: Abdominal pain. FINDINGS: The chest base is clear. There is normal contrast- enhanced CT appearance of the liver, spleen, pancreas, adrenal glands and kidneys. The patient is status post cholecystectomy. There is no evidence of biliary duct dilatation. The visualized bowel is normal in caliber. The appendix is normal. The bladder and pelvic organs appear normal. No acute osseous abnormality. No lymphadenopathy. IMPRESSION: No acute intra-abdominal process. While performing the above CT examination, radiation dose reduction wa s accomplished utilizing automated exposure control, adjusting of the mA and kV based on the patient's body size and/or the use of imperative reconstructive techniques. CT dose: 657.4 mGycm Contrast agent in mL: 75 Isovue 370 Page 1 of 2 [facility] [address] [place] [address] PHONE: [phone] FAX: [phone] Name .................. : JOCELINE GARCIA Gopi Acct Number.................. : [id number] ROOM. ................. : TR-02 Number ................... : [id number] Stay type ............. : E/R Discharge Date......... ... : 08/14/20 Admit Date ......... : 08/14/20 Admit Phys .................... : COONEYNORM Date of ....... : 1995 Family Phys ................... : UNKNOWN Phone .................. : [phone] Age ................................ : 25 Film# .................. .:[id number] Sex ................................. : F Unsigned transcriptions are preliminary reports and do not represent a medical or legal document CT ABD & PELVIS W/ IV ONLY [id number] COMPLETE:08/14/20 19:22 ARLENE 8055 Reason(s): Abdominal Pain Method of administration: Intravenous Electronically Reviewed and Signed By Wayne Farias M.D. , 08/15/20 09:04, NMY Transcribe Initials: DZ , Transcribe Date: 08/15/20 00:16, Dictation Date: Copy for: VIPIN MORENO via fax Copy for: EMERGENCY DEPT via [facility] Copy for: 710 MED REC DISCHARGED Page 2 of 2 Name Value Range Interpretation Code Description Data Rachel rce(s) Supporting Document(s) ID Date Data Source [id number] 08/14/2020 06:54:00 PM EDT [facility] 1 OrderSheet [facility] Emergency Department [address] [place] [address] Phone #: ext- [phone] 08/14/2020 18:33 Patient: ZARIA CAR Sex: F : 1995 Age: 25yWEIGHT:71.2 kg (S) HEIGHT:67 inches (S) BMI:24.6ALLERGIES: No Known Drug AllergyCHIEF COMPLAINT: abdominal pain, nauseaDIAGNOSIS: Abdominal painLAB ORDERSOrder Description Priority Entered Acknowledged InitialedCBC w Diff STAT 18:47 08/14/2020 18:47 Camacho Moore R.N. PA;CMP STAT 18:47 08/14/2020 18:47 Camacho Moore R.N. PA;Lipase ST AT 18:47 08/14/2020 18:47 Camacho Moore R.N. PA;Urinalysis (Clean STAT 18:47 08/14/2020 Ack'd: 18:58 Bhavna Moore R.N.Catch) Camacho Dumas Cancelled: Unable to Collect 20:29 PA; Bhavna Moore R.N.Lactic Acid STAT 18:47 08/14/2020 18:47 Camacho Moore R.N. PA;DIAGNOSTIC STUDY ORDERSOrder Description Priority Entered Acknowledged InitialedCT Abd PEL W/ IV STAT 18:47 08/14/2020 Ack'd: 18:47 19:08 BurnhamContrast Only Bhavna Floyd intern brandDeric ER(Oxygen?(No)) PA; R.NAzul Tech1(IV?(Yes)) NOTES: RLQ Pain Reason for Study: Abdominal PainMEDICATION/IV/DRIP/FLUID ORDERSOrder Description Priority Entered Acknowledged InitialedNS IV : Bolus 1000 18:47 08/14/2020 Ack'd: 18:47 19:25 Oscar,mL, then 150 mL/hr Bhavna Covarrubias R.N. PA; R.N. 2 OrderSheet [facility] Emergency Department [address] [place] [address] Phone #: ext- [phone] 08/14/2020 18:33 Patient: ZARIA CAR Sex: F : 1995 Age: 25yZofran IVP 8 mg 18:47 08/14/2020 Ack'd: 18:47 19:25 Camacho Moore Amber Amber R.N. PA; R.N.Morphine IVP 4 mg 18:47 08/14/2020 Ack'd: 18:47 19:28 Oscar(HIGH ALERT Bhavna Floyd R.N.MEDICATION) CHRISTIN; R.N.Reglan 10 mg IVP 19:56 08/14/2020 20:06 Melaragno,X1 dose: 10 mg Camacho Smith R.N.(NOW x1) PA;GENERAL ORDERSOrder Description Priority Entered Acknowledged InitialedNPO 18:47 08/14/2020 18:47 Camacho Moore R.N.;Saline Lock 18:47 08/14/2020 Ack'd: 18:47 19:09 Camacho Moore Amber Amber R.N. PA; R.N.[Electronically signed by Bhavna Moore R.N. (20:31 08/14/2020)][Electronically signed by Camacho Dumas (20:34 08/14/2020)][Electronically locked by Bhavna Moore R.N. (20:31 08/14/2020)] Name Value Range Interpretation Code Description Data Rachel rce(s) Supporting Document(s) ID Date Data Source [id number] 08/14/2020 06:54:00 PM EDT [facility] 1 Medication Reconciliation Report [facility] Emergency Department [address] [place] [address] Phone #: ext- [phone] 08/14/2020 18:33 Patient: ZARIA CAR Sex: Tio : 1995 Age: 25yWeight: 71.2 kgHeight/Length: 67 in.BMI: 24.6ALLERGIES: No Known Drug AllergyThe patient's Home Medications are listed below:NONE.The source(s) of the original Home Medication information:patientThe following Medications were given to the patient in the Emergency Department:Zofran [IVP] IVP 8 mg, administered: 19:25 08/14/2020NS [IV] IV Fluids bolus 1000 mL wide open, administered: 19:08/14/2020Morphine [IVP] IVP 4 mg diluted in NS 10 mL, administered: 19:28 08/14/2020eglan [IVP] IVP 10 mg, administered: 20:08/14/2020The following Medications were prescribed to the patient:Reglan 10 mg tablet Take 1 tablet four times a day for 5 days -- Dispense 20 tablet. Refills: 0.Substitution permitted.Pharmacy - [facility] [id number] [place] [facility] [id number] [place] [address] ; [place] [address]. . -- CHRISTIN Gonzalez Name Value Range Interpretation Code Description Data Rachel rce(s) Supporting Document(s) ID Date Data Source [id number] 08/14/2020 06:54:00 PM EDT [facility] 1 Medication Administration Record [facility] Emergency Department [address] [place] [address] Phone #: ext- [phone] 08/14/2020 18:33 Patient: ZARIA CAR Sex: F : 1995 Age: 25yWeight: 71.2 kgHeight/Length: 67 inBMI: 24.6ALLERGIES: No Known Drug Allergy Date/Time Medication Administered Medication OrderedStart NS [IV] NS IV : Bolus 1000 mL, then 52904:20 08/14/2020 Dose: IV Fluids mL/hrWeBhavna mueller, R.N. Bolus: 1000 mL wide open---- Dispensed: 1000 mL bagStop Site: #1 left AC20:21 08/14/2020Bhavna Moore R.NAzulGiven ZOFRAN [IVP] (ONDANSETRON HCL) Zofran IVP 8 mg19:25 08/14/2020 Dose: 8 mg IVPBhavna Moore R.NAzul Site: #1 left ACGiven MORPHINE [IVP] Morphine IVP 4 mg (HIGH ALERT19:28 08/14/2020 Dose: 4 mg IVP MEDICATION)Bhavna Moore REj In: NS 10 mL Site: #1 left ACGiven REGLAN [IVP] (METOCLOPRAMIDE Reglan 10 mg IVP X1 dose: 10 mg20:06 08/14/2020 HCL) (NOW x1)Sarah Wei R.N. Dose: 10 mg IVP Site: #1 left AC Name Value Range Interpretation Code Description Data Rachel rce(s) Supporting Document(s) ID Date Data Source [id number] 08/14/2020 06:54:00 PM EDT [facility] 1 General Instructions [facility] Emergency Department [address] [place] [address] Phone #: ext- [phone] 08/14/2020 18:33 Patient: ZARIA CAR Sex: F : 1995 Age: 25yAcute right lower quadrant abdominal pain of unknown cause.INSTRUCTIONSWarnings: GENERAL WARNINGS: Return or contact your physician immediately if your conditionworsens or changes unexpectedly, if not improving as expected, or if other problems arise.SPECIFICALLY, return if you develop vomiting, the inability to keep fluids down, blood in vomitus, blood indiarrhea, fainting or lightheadedness; or if there is no improvement in the pain in the abdomen.Your Current Medications: .No home medication.Prescription Medications:Reglan 10 mg tablet Take 1 tablet four times a day for 5 days -- Dispense 20 tablet. Refills: 0.Substitution permitted.Pharmacy - [facility] [id number] [place] [employer] [facility] [address] [facility] ; [place] [address]. .Follow-up:Follow up with a specialist OB. Reason for referral: Ovarian Cyst versus Adhesions?. Summary of careprovided to patient.Understanding of the discharge instructions verbalized by patient. ADDITIONAL INFORMATIONUnknown Causes of Abdominal Pain (Female) 2 General Instructions [facility] Emergency Department [address] [place] [address] Phone #: ext- [phone] 08/14/2020 18:33 Patient: ZARIA CAR Sex: F : 1995 Age: 25yThe exact cause of your belly (abdominal) pain is not clear. This does not mean that this is somethingto worry about. Everyone likes to know the exact cause of the problem. But sometimes with bellypain, there is no clear-cut cause, and this could be a good thing. The good news is that yoursymptoms can be treated, and you will feel better.Your condition does not seem serious now. But sometimes the signs of a serious problem may takemore time to appear. For this reason, it is important for you to watch for any new symptoms,problems, or worsening of your condition.Over the next few days, the abdominal pain may come and go. Or it may be constant. Other commonsymptoms can include nausea and vomiting. Sometimes it can be difficult to tell if you feel nauseous.You may just feel bad and not connect that feeling to nausea. Constipation, diarrhea, and a fever maygo along with the pain.The pain may continue even if treated hector ectly over the following days. Depending on how things go,sometimes the cause can become clear and may need more or different treatment. Additionalevaluations, medicines, or tests may also be needed.Home careYour healthcare provider may prescribe medicine for pain, symptoms, or an infection. Follow thehealthcare provider's instructions for taking these medicines. 3 General Instructions [facility] Emergency Department [address] [place] [address] Phone #: ext- [phone] 08/14/2020 18:33 Patient: ZARIA CAR Sex: F : 1995 Age: 25[facility] care Rest as much as you can until your next exam. No strenuous activities. Try to find positions that ease discomfort. A small pillow placed on the abdomen may help relieve pain. Something warm on your abdomen (such as a heating pad) may help, but be careful not to burn yourself.Diet Don't force yourself to eat, especially if having cramps, vomiting, or diarrhea. Water is important so you don't get dehydrated. Soup may also be good. Sports drinks may also help, especially if they are not too acidic. Don't drink sugary drinks as this can make things worse. Take liquids in small amounts. Don't guzzle them. Caffeine sometimes makes the pain and cramping worse. Don't take dairy products if you have vomiting or diarrhea. Don't eat large amounts at a time. Wait a few minutes between bites. Eat a diet low in fiber (called a low-residue diet). Foods allowed include refined breads, white rice, fruit and vegetable juices without pulp, tender meats. These foods will pass more easily through the intestine. Don't have whole-grain foods, whole fruits and vegetables, meats, seeds and nuts, fried or fatty foods, dairy, alcohol and spicy foods until your symptoms go away.Follow-up careFollow up with your healthcare provider, or as advised, if your pain does not begin to improve in thenext 24 hours.Call [phone] if any of these occur: Trouble breathing Confusion Fainting or loss of consciousness Rapid heart rate 4 General Instructions [facility] Emergency Department [address] [place] [address] Phone #: ext- [phone] 08/14/2020 18:33 Patient: ZARIA CAR Sex: F : 1995 Age: 25y SeizureWhen to seek medical adviceCall your healthcare provider right away if any of these occur: Pain gets worse or moves to the right lower abdomen New or worsening vomiting or diarrhea Swelling of the abdomen Unable to pass stool for more than 3 days Fever of 100.4F (38C) or higher, or as directed by your healthcare provider. Blood in vomit or bowel movements (dark red or black color) Yellow color of eyes and skin (jaundice) Weakness, dizziness Chest, arm, back, neck, or jaw pain Unexpected vaginal bleeding or missed period Can't keep down liquids or water and you are getting dehydrated [id number] [employer]. [address] [place] [address]. All rights reserved. This information is not intended as asubstitute for professional medical care. Always follow your healthcare professional's instructions. You have been given the following additional information: Abdominal Pain, Unknown Cause, (Female)(Electronically signed by CHRISTIN Gonzalez 08/14/2020 20:34) Name Value Range Interpretation Code Description Data Rachel rce(s) Supporting Document(s) ID Date Data Source [id number] 08/14/2020 06:54:00 PM EDT [facility] 1 Clinical Report - Nurses [facility] Emergency Department [address] [place] [address] Phone #: ext- [phone] 08/14/2020 18:33 Patient: ZARIA CAR Sex: F : 1995 Age: 25yTRIAGEArrived by private vehicle. Historian: patient. Accompanied by spouse (DROPPED OFF).Triage time: 18:34 08/14/2020. Acuity: LEVEL 3.Chief Complaint: ABDOMINAL PAIN and (decreased appetite).Alert. No acute distress.Onset. (4 days ago). ( Pt states she has had RLQ abd pain since Thursday and this has progressively gottenworse. Pt states very painful to palpation. Pt went to [facility] on Thursday morning who did lab work butultimately discharged without answer. Pt states since then has gotten worse still and does not have anappetite. Pt denies n/v/d.). She has had abdominal pain. The pain is described as located in the RLQ.No nausea, vomiting, diarrhea or constipation. 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 SEPSIS SCREEN NEGATIVE.No suspected or confirmed signs of infection present. --18:39 08/14/20 Lulú Mckeon R.N.18:34 08/14/20. BP: 121/75. MAP: 90. HR: 91. RR: 18. O2 saturation: 100% on room air. Temp: 97.1 F(oral). Pain level now: 11/17. --18:39 08/14/20 Lulú Mckeon R.N.Weight: 71.2 kg stated. Height/Length: 67 inches Per Patient. BMI: 24.6. --18:33 08/14/20 Lulú Mckeon R.N.MedicationsNone. --18:36 08/14/20 Joyce Mckeon R.N.AllergiesNo Known Drug Allergy. --18:36 08/14/20 Lulú Mckeon R.N.PROBLEMS:Ectopic .Ovarian Cyst.Migraine Headache. --18:37 08/14/20 Lulú Mckeon R.N.Medication/allergy information source: the patient. --18:39 08/14/20 Lulú Mckeon R.N.ADDITIONAL SURGERIES: 2 Clinical Report - Nurses [facility] Emergency Department [address] [place] [address] Phone #: ext- [phone] 08/14/2020 18:33 Patient: ZARIA CAR Sex: F : 1995 Age: 25y Cholecystectomy. . Salpingectomy. --18:37 08/14/20 Lulú Mckeon R.N. History PAST MEDICAL HX: Immunizations: up-to-date. Last normal menstrual period- 07/26/2020. SOCIAL HX: Current every day light tobacco smoker (cigarette)- less than 1/2 a pack per day. Occasional alcohol use. No drug use. No recent travel. No known contact with a sick individual. She was offered HIV testing but declined. Patient education was provided. She was offered hepatitis C testing but declined. Patient education was provided. ( COVID screen negative). She has not traveled outside the [place] Infectious disease exposure: No infectious disease exposure. The patient was not exposed to Coronavirus. Mask placed on patient. Patient is not a known carrier of tuberculosis, hepatitis, HIV, MRSA or VRE. Patient is not a known carrier of CRE. SELF HARM ASSESSMENT: Self harm assessment was performed. The patient answered "no" to the question(s) "Do you have thoughts of harming or killing yourself?" and "Do you have a plan for harming or killing yourself?". ABUSE ASSESSMENT: Abuse assessment. The patient had positive responses to the question(s) "Do you feel safe in your h ome?". Abuse denied. No suspicion of abuse. No report of abuse. NUTRITIONAL RISK ASSESSMENT: The nutritional risk assessment revealed no deficiencies. FUNCTIONAL ASSESSMENT: Functional assessment: no impairments noted. LEARNING NEEDS ASSESSMENT: The learning needs assessment revealed no barriers. FALL RISK ASSESSMENT: Fall risk assessment completed. No risk factors identified. SKIN INTEGRITY ASSESSMENT: Skin integrity risk assessment completed. No skin integrity risk identified. --18:39 08/14/20 Lulú cMkeon R.N. Interventions Identification band on patient. --18:39 08/14/20 Lulú Mckeon R.N.PHYSICAL ASSESSMENTAmbulatory to room.GENERAL / NEURO / PSYCH: Alert. Oriented X 4. Appears in no acute distress.HEENT: Mucous membranes are pink.RESPIRATORY: Respirations not labored. Breath sounds within normal limits.CVS: Normal sinus rhythm noted. Capillary refill less than 2 seconds.GI / : Abdomen soft. Abdominal tenderness in the right lower quadrant. Bowel sounds within normallimits. 3 Clinical Report - Nurses [facility] Emergency Department [address] [place] [address] Phone #: ext- [phone] 08/14/2020 18:33 Patient: ZARIA CAR Sex: F : 1995 Age: 25y SKIN: Skin is warm and dry. --18:47 08/14/20 Bhavna Moore R.N.NURSING PROGRESS NOTESNIBP monitor and pulse oximeter placed on patient; monitor alarms on. Patient gowned. Reassurancegiven. Three patient identifiers checked. Call light placed in reach. Side rails up x 2. Bed placed inlowest position. Brakes of bed on. Patient ready for evaluation- PA notified. --18:40 08/14/20 Lulú Mckeon R.N. 19:09 08/14/2020 Site #1 started via IV in the left antecubital space with an 20g angiocath, with aseptic technique and good blood return; one attempt. Saline lock flushed with 10 mL saline. --19:08/14/20 Bhavna Moore R.N. Patient returned from CT by wheelchair with IV, mask and technical business systems analyst. --19:08/14/20 Bhavna Moore R.N. late entry - 19:12 08/14/20. Patient transported to CT by wheelchair with IV, mask and technical business systems analyst. --19:08/14/20 Bhavna Moore R.N. 19:20 08/14/2020 Started bag #1 1000 mL IV Fluids NS; bolus of 1000 mL wide open via site #1 via IV pump. Allergies verified and confirmed 5 rights. IV patency established. IV site checked: no pain, redness, or swelling. IV flushed thoroughly pre- and post-medication administration. Information reviewed with patient including reason for taking this medication, signs of allergic reaction and precautions. Verbalizes understanding. --08/14/20 Bhavna Moore R.N. 19:08/14/2020 Zofran (Ondansetron HCl) IVP 8 mg given over 3 minute(s) via site #1. Allergies verified and confirmed 5 rights. IV patency established. IV site checked: no pain, redness, or swelling. IV flushed thoroughly pre- and post-medication administration. IVP given by RN. Information reviewed with patient including reason for taking this medication, signs of allergic reaction and precautions. Verbalizes understanding. --08/14/20 Bhavna Moore R.N. 19:08/14/2020 Morphine IVP 4 mg given diluted in NS 10mL over 5 minute(s) via site #1. Allergies verified and confirmed 5 rights. IV patency established. IV site checked: no pain, redness, or swelling. IV flushed thoroughly pre- and post-medication administration. IVP given by RN. Information reviewed with patient including reason for taking this medication, signs of allergic reaction, precautions and sedative warning. Verbalizes understanding. --08/14/20 Bhavna Moore R.N. 19:00 08/14/20. BP: 114/74. MAP: 87. HR: 90. RR: 16. O2 saturation: 100% on room air. --20:14 08/14/20 Bhavna Moore R.N. 19:30 08/14/20. BP: 117/72. MAP: 87. HR: 81. RR: 16. O2 saturation: 99% on room air. --20:15 08/14/20 Bhavna Moroe R.N. 20:00 08/14/20. BP: 113/72. MAP: 85. HR: 78. RR: 16. O2 saturation: 100% on room air. --20:16 08/14/20 Bhavna Moore R.N. 4 Clinical Report - Nurses [facility] Emergency Department [address] [place] [address] Phone #: ext- [phone] 08/14/2020 18:33 Patient: ZARIA CAR Sex: F : 1995 Age: 25y late entry - 19:40 08/14/20. Patient gowned. Reassurance given. Rounding: Position: states comfortable. Proximity of possessions / care items: call light within easy reach. Set expectations: advised patient of rounding protocol timing and asked if they needed anything else at this time. The patient is calm and resting quietly. Three patient identifiers checked. Call light placed in reach. Side rails up x 2. Bed placed in lowest position. Brakes of bed on. Patient waiting for disposition. --20:16 08/14/20 Bhavna Moore R.N. 20:06 08/14/2020 Reglan (Metoclopramide HCl) IVP 10 mg given over 2 minute(s) via site #1. Allergies verified and confirmed 5 rights. IV patency established. IV site checked: no pain, redness, or swelling. IV flushed thoroughly pre- and post-medication administration. IVP given by RN. Information reviewed with patient. Verbalizes understanding. --20:06 21 Sarah Wei R.N. 20:08/14/2020 IV Fluids NS via IV site #1 Discontinued: bag #1 infused. Total amount infused: 1000ml mL. IV patency established. IV site checked: no pain, redness, or swelling. IV flushed thoroughly. --20:08/14/20 Bhavna Moore R.N. 20:08/14/2020 Site #1 removed upon discharge. Catheter intact. Bandage applied. --20:08/14/20 Bhavna Moore R.N.DISPOSITION / DISCHARGE 20:08/14/20. Departure time: late entry - 20:08/14/2020. Condition at departure: improved and stable. No learning barriers present. Discharge instructions provided and reviewed with the patient. Reviewed warnings. Reviewed medication(s) side effects, precautions, dosing and course information. Prescription(s) sent electronically to pharmacy ([facility]). Reviewed referral to a primary care physician for followup. Patient verbalized understanding. Written instructions provided in Maltese. The patient was discharged by the physician optometrist assistant. She was discharged home and accompanied by spouse. She left ambulatory and via private vehicle. Spouse driving. --20:08/14/20 Bhavna Moore R.N. 20:08/14/20. BP: 116/74. MAP: 88. HR: 89. RR: 16. O2 saturation: 98% on room air. Temp: 97.8 F (oral). Pain level now: 10. --20:31 08/14/20 Bhavna Moore R.N.Locked/Released at 08/14/2020 20:31 by Bhavna Moore R.N. Name Value Range Interpretation Code Description Data Rachel rce(s) Supporting Document(s) ID Date Data Source [id number] 08/14/2020 06:54:00 PM EDT [facility] 1 Clinical Report - Physicians/Mid Levels [facility] Emergency Department [address] [place] [address] Phone #: ext- [phone] 08/14/2020 18:33 Patient: ZARIA CAR Sex: F : 1995 Age: 25y Time Seen: 18:34 08/14/2020. Arrived- By private vehicle. Historian- patient.HISTORY OF PRESENT ILLNESS Chief Complaint: ABDOMINAL PAIN and NAUSEA. This started 4 days ago; Pt states she has had RLQ abd pain since Thursday and this has progressively gotten worse. Pt states very painful to palpation. Pt went to [facility] on Thursday morning who did lab work but ultimately discharged without answer. Pt states since then has gotten worse still and does not have an appetite. Pt denies n/v/d.). She has had abdominal pain. The pain is described as located in the RLQ. No nausea, vomiting, diarrhea or constipation. Last oral intake by patient was (Water today 3 hours ago; 1/2 granola bar at 1000 and is still present. It was abrupt in onset and has been constant. It is described as "pain", sharp and cramping and it is described as located in the right lower quadrant. At its maximum, severity described as moderate. When seen in the E.D., severity described as moderate. The patient has had nausea. No loss of appetite, vomiting or diarrhea. Similar symptoms previously. Patient has had similar symptoms once. Recent medical care: The patient was seen recently at another facility in the emergency department.REVIEW OF SYSTEMSLast normal menstrual period- 2020. No constipation, black stools, hematemesis, difficulty withurination or pain with urination. No urinary frequency, bloody stools, fever, headache or sore throat. Noblurred vision, chest pain, difficulty breathing, cough or joint pain. No skin rash, chills or back pain. Thepatient has not had weight loss.PAST HISTORYProblems:Ectopic .Ovarian Cyst.Migraine Headache. Additional Surgeries: Cholecystectomy. . Salpingectomy. Medications: None. Allergies: No Known Drug Allergy. 2 Clinical Report - Physicians/Mid Levels [facility] Emergency Department [address] [place] [address] Phone #: ext- [phone] 08/14/2020 18:33 Patient: ZARIA CAR Sex: F : 1995 Age: 25ySOCIAL HISTORYLight tobacco smoker (cigarette)- less than 1/2 a pack per day. Occasional alcohol use. No drug use.PHYSICAL EXAMVital Signs: 08/14/2020 18:34 BP: 121/75. MAP: 90. HR: 91. RR: 18. O2 saturation: 100% on room air.Temp: 97.1 F. Pain level now: 11/17. Have been reviewed as normal. Oxygen saturation normal.Appearance: Alert. Oriented X3. No acute distress.Eyes: Pupils equal, round and reactive to light. Eyes normal inspection.ENT: Ears normal. Nose normal. Pharynx normal.Neck: Normal inspection.CVS: Normal heart rate and rhyt hm. Heart sounds normal.Respiratory: No respiratory distress. Breath sounds normal.Abdomen: Soft. Mild tenderness in the right lower quadrant. Bowel sounds normal. No organomegaly.No mass.Back: Normal inspection.Skin: Skin warm and dry. Normal skin color. No rash. Normal skin turgor.Extremities: Extremities exhibit normal ROM. No lower extremity edema.Neuro: Oriented X 3.LABS, X-RAYS, AND EKGCT Abdomen - Pelvis: Normal study. Study type: upper abdomen; lower abdomen; pelvis. Abdomen -pelvic CT performed with IV contrast. The study was interpreted by the radiologist andcontemporaneously by me. Interpretation time: 19:48 08/14/2020.Laboratory Tests: Laboratory tests have been ordered, with results reviewed and considered in themedical decision making process. CBC w Diff: (ABILIO: 08/14/2020 19:00) ( MsgRcvd 08/14/2020 19:25) Final results Test Result Flag Units (Reference) CBC W/AUTOMATED DIFF COMPLETE BLOOD COUNT WBC 6.7 10/uL (4.2 - 11.0) RBC 4.16 L 10/uL (4.20 - 5.40) HEMOGLOBIN 13.4 g/dL (12.0 - 16.0) HEMATOCRIT 40.4 % (37.0 - 47.0) MCV 97.1 fL (81.0 - 101) MCH 32.2 pg (27.0 - 34.0) MCHC 33.2 g/dL (31.0 - 36.0) RDW 12.5 % (11.5 - 14.5) PLATELETS 231 10/uL (150 - 450) MPV 10.6 H fL (7.4 - 10.4) NEUT 52.7 % (37.0 - 80.0) LYMPH 36.0 % (25.0 - 40.0) MONO 8.8 H % (3.0 - 8.0) EOS 1.6 % (0.0 - 7.0) BASO 0.6 % (0.0 - 2.5) %IG 0.3 H % (0.0 - 0.0) %NRBC 0.0 % (0.0 - 0.0) #NEUT 3.51 10/uL (2.00 - 6.90) #LYMPH 2.40 10/uL (0.60 - 3.40) #MONO 0.59 10/uL (0.00 - 0.90) #EOS 0.11 10/uL (0.00 - 0.70) 3 Clinical Report - Physicians/Mid Levels [facility] Emergency Department [address] [place] [address] Phone #: ext- [phone] 08/14/2020 18:33 Patient: ZARIA CAR Sex: F : 1995 Age: 25y #BASO 0.04 10/uL (0.00 - 0.20) #IG 0.02 10/uL (0.00 - 0.10) #NRBC 0.00 10/uL (0.00 - 0.00) MANUAL DIFF NOT INDICATED RBC MORPH NOT INDICATED CMP: (ABILIO: 08/14/2020 19:00) ( MsgRcvd 08/14/2020 19:46) Final results Test Result Flag Units (Reference) COMPREHENSIVE METABOLIC PANEL COMPREHENSIVE METABOLIC PANEL SODIUM 136 mEq/L (134 - 153) POTASSIUM 4.2 mEq/L (3.6 - 5.0) CHLORIDE 100 mEq/L (98 - 107) CO2 29 MEQ/L (22 - 30) GLUCOSE 86 MG/DL (70 - 99) BUN 8 MG/DL (7 - 21) CREATININE 0.5 L MG/DL (0.7 - 1.5) BUN/CREAT 16 (8 - 27) TOTAL PROTEIN 6.6 G/DL (6.3 - 8.2) ALBUMIN 4.3 G/DL (3.9 - 5.0) GLOBULIN 2.3 L GM/DL (2.4 - 3.2) A/G RATIO 1.9 (0.8 - 2.0) CALCIUM 9.8 MG/DL (8.4 - 10.2) TOTAL BILI <0.7 MG/DL (0.2 - 1.3) ALKALINE PHOS 69 U/L (38 - 126) SGOT/AST 12 U/L (5 - 40) SGPT/ALT 6 L U/L (7 - 56) ANION GAP 7.0 L mmol/L (8.0 - 16.0) AGE 25 yrs NON-AA GFR >60 mL/min AFR AMER GFR >60 mL/min Male GFR Interprentation 20-49 yrs >60 mL/min Normal 50-59 yrs >56 mL/min Normal 60-69 yrs >49 mL/min Normal 70-79yrs >42 mL/min Normal 80 and above >35 mL/min Normal Female GFR Interpretation 20-39 yrs >60 mL/min Normal 40-49 yrs >58 mL/min Normal 50-59 yrs >51 mL/min Normal 60-69 yrs >45 mL/min Normal 70-79 yrs >39 mL/min Normal 80 and above >32 mL/min Normal Lipase: (ABILIO: 08/14/2020 19:00) ( MsgRcvd 08/14/2020 19:46) Final results Test Result Flag Units (Reference) LIPASE 31 U/L (13 - 60) Lactic Acid: (ABILIO: 08/14/2020 19:00) ( MsgRcvd 08/14/2020 19:33) Final results Test Result Flag Units (Reference) LACTIC ACID 1.4 MMOL/L (0.2 - 2.2) CT Abd PEL W/ IV Contrast Only: (ABILIO: 08/14/2020 18:54) ( MsgRcvd 08/14/2020 19:22) In Progress CT ABD Reason(s): Abdominal Pain TRANSPORTATION: IV? IV?(Yes) O2? Oxygen?(No) Ro : No CMTS: RLQ Pain. 4 Clinical Report - Physicians/Mid Levels [facility] Emergency Department [address] [place] [address] Phone #: ext- [phone] 08/14/2020 18:33 Patient: ZARIA CAR Sex: F : 1995 Age: 25yPROGRESS AND PROCEDURESCourse of Care: 19:55 Aug 14 2020. Evaluation after observation. (Discussed CT A/P and possiblyOvarian cyst versus adhesions, pt has f/u with OB. Pt had negative HCG at [facility] on Thursday.). Patient counseled in person regarding the patient's stable condition, test results, diagnosis and need for follow-up. Patient agrees with plan of care. 19:56 Aug 14 2020. Disposition: Discharged home in good and improved condition (19:56 Aug 14 2020).CLINICAL IMPRESSION Acute right lower quadrant abdominal pain of unknown cause.INSTRUCTIONS Warnings: GENERAL WARNINGS: Return or contact your physician immediately if your condition worsens or changes unexpectedly, if not improving as expected, or if other problems arise. SPECIFICALLY, return if you develop vomiting, the inability to keep fluids down, blood in vomitus, blood in diarrhea, fainting or lightheadedness; or if there is no improvement in the pain in the abdomen. Your Current Medications: . No home medication. Prescription Medications: Reglan 10 mg tablet Take 1 tablet four times a day for 5 days -- Dispense 20 tablet. Refills: 0. Substitution permitted. Pharmacy - [facility] [id number] [facility] [employer] - [id number] [place] [address] ; [place] [address]. . Follow-up: Follow up with a specialist OB. Reason for referral: Ovarian Cyst versus Adhesions?. Summary of care provided to patient. Understanding of the discharge instructions verbalized by patient.(Electronically signed by CHRISTIN Gonzalez 08/14/2020 20:34) 5Clinical Report - Physicians/Mid Levels [facility] Emergency Department [address] [place] [address] Phone #: [phone] 08/14/2020 18:33 Patient: ZARIA CAR Sex: F : 1995 Age: 25y Name Value Range Interpretation Code Description Data Rachel rce(s) Supporting Document(s) ID Date Data Source [id number] 08/14/2020 07:46:00 PM EDT [facility] Name Value Range Interpretation Code Description Data Rachel rce(s) Supporting Document(s) Lipase [Enzymatic activity/volume] in Serum or Plasma 31 U/L 13 - 60 [facility] ID Date Data Source [id number] 08/14/2020 07:46:00 PM EDT [facility] Name Value Range Interpretation Code Description Data Rachel rce(s) Supporting Document(s) COMPREHENSIVE METABOLIC PANEL [facility] COMPREHENSIVE METABOLIC PANEL Sodium [Moles/volume] in Serum or Plasma 136 mEq/L 134 - 153 [facility] Potassium [Moles/volume] in Serum or Plasma 4.2 mEq/L 3.6 - 5.0 [facility] Chloride [Moles/volume] in Serum or Plasma 100 mEq/L 98 - 107 [facility] Carbon dioxide, total [Moles/volume] in Serum or Plasma 29 MEQ/L 22 - 30 [facility] Glucose [Mass/volume] in Serum or Plasma 86 MG/DL 70 - 99 [facility] BUN 8 MG/DL 7 - 21 [facility] Creatinine [Mass/volume] in Serum or Plasma 0.5 MG/DL 0.7 - 1.5 L [facility] BUN/CREAT 16 8 - 27 [facility] Protein [Mass/volume] in Serum or Plasma 6.6 G/DL 6.3 - 8.2 [facility] Albumin [Mass/volume] in Serum or Plasma 4.3 G/DL 3.9 - 5.0 [facility] Globulin [Mass/volume] in Serum by calculation 2.3 GM/DL 2.4 - 3.2 L [facility] A/G RATIO 1.9 0.8 - 2.0 [facility] Calcium [Mass/volume] in Serum or Plasma 9.8 MG/DL 8.4 - 10.2 [facility] Bilirubin.total [Mass/volume] in Serum or Plasma <0.7 MG/DL 0.2 - 1.3 [facility] Alkaline phosphatase [Enzymatic activity/volume] in Serum or Plasma 69 U/L 38 - 126 [facility] Aspartate aminotransferase [Enzymatic activity/volume] in Serum or Plasma 12 U/L 5 - 40 [facility] Alanine aminotransferase [Enzymatic activity/volume] in Seru m or Plasma 6 U/L 7 - 56 L [facility] Anion gap 3 in Serum or Plasma 7.0 mmol/L 8.0 - 16.0 L [facility] AGE 25 yrs [facility] al NON-AA GFR >60 mL/min [facility] ital AFR AMER GFR >60 mL/min [facility] Ho spital Male GFR In terprentation 20-49 yrs >60 mL/min Normal 50-59 yrs >56 mL/min Normal 60-69 yrs >49 mL/min Normal 70-79yrs >42 mL/min Normal 80 and above >35 mL/min Normal Female GFR Interpretation 20-39 yrs >60 mL/min Normal 40-49 yrs >58 mL/min Normal 50-59 yrs >51 mL/min Normal 60-69 yrs >45 mL/min Normal 70-79 yrs >39 mL/min Normal 80 and above >32 mL/min Normal ID Date Data Source [id number] 08/14/2020 07:33:00 PM EDT [facility] Name Value Range Interpretation Code Description Data Rachel rce(s) Supporting Document(s) Lactate [Moles/volume] in Serum or Plasma 1.4 MMOL/L 0.2 - 2.2 [facility] ID Date Data Source [id number] 08/14/2020 07:25:00 PM EDT [facility] Name Value Range Interpretation Code Description Data Rachel rce(s) Supporting Document(s) CBC W/AUTOMATED DIFF [facility] COMPLETE BLOOD COUNT Leukocytes [#/volume] in Blood by Automated count 6.7 10^3/uL 4.2 - 1 1.0 [facility] Erythrocytes [#/volume] in Blood by Automated count 4.16 10^6/uL 4. 20 - 5.40 L [facility] Hemoglobin [Mass/volume] in Blood 13.4 g/dL 12.0 - 16.0 [facility] Hematocrit [Volume Fraction] of Blood by Automated count 40.4 % 3 7.0 - 47.0 [facility] Erythrocyte mean corpuscular volume [Entitic volume] by Auto mated count 97.1 fL 81.0 - 101 [facility] Erythrocyte mean corpuscular hemoglobin [Entitic mass] by Automated count 32.2 pg 27.0 - 34.0 [facility] Erythrocyte mean corpuscular hemoglobin concentration [Mass/volume] by Automated count 33.2 g/dL 31.0 - 36.0 [facility] Erythrocyte distribution width [Ratio] by Automated count 12.5 % 11.5 - 14.5 [facility] Platelets [#/volume] in Blood by Automated count 231 10^3/uL 150 - 45 0 [facility] Platelet mean volume [Entitic volume] in Blood by Automated count 10.6 fL 7.4 - 10.4 H [facility] Neutrophils/100 leukocytes in Blood by Automated count 52.7 % 37. 0 - 80.0 [facility] Lymphocytes/100 leukocytes in Blood by Manual count 36.0 % 25.0 - 40.0 [facility] Monocytes/100 leukocytes in Blood by Automated count 8.8 % 3.0 - 8.0 H [facility] Eosinophils/100 leukocytes in Blood by Automated count 1.6 % 0.0 - 7.0 [facility] Basophils/100 leukocytes in Blood by Automated count 0.6 % 0.0 - 2.5 [facility] %IG 0.3 % 0.0 - 0.0 H [facility] %NRBC 0.0 % 0.0 - 0.0 [facility] Neutrophils [#/volume] in Blood by Automated count 3.51 10^3/uL 2.00 - 6.90 [facility] Lymphocytes [#/volume] in Blood by Automated count 2.40 10^3/uL 0.60 - 3.40 [facility] Monocytes [#/volume] in Blood by Automated count 0.59 10^3/uL 0.00 - 0.90 [facility] Eosinophils [#/volume] in Blood by Automated count 0.11 10^3/uL 0.00 - 0.70 [facility] Basophils [#/volume] in Blood by Automated count 0.04 10^3/uL 0.00 - 0.20 [facility] #IG 0.02 10^3/uL 0.00 - 0.10 [facility] ospital #NRBC 0.00 10^3/uL 0.00 - 0.00 [facility] ospital MANUAL DIFF NOT INDICATED [facility] RBC MORPH NOT INDICATED [facility] spital ID Date Data Source [id number] 07/10/2020 02:44:00 PM EST [facility] ([facility], [facility]) Name Value Range Interpretation Code Description Data Rachel rce(s) Supporting Document(s) Glucose, Fasting 94 mg/dL 70-100 [facility] ([facility], [facility]) Blood Urea Nitrogen 10 mg/dL 7-18 [facility] ([facility], [facility]) Creatinine For GFR 0.60 mg/dL 0.55-1.30 [facility] ([facility], [facility]) Glomerular Filtration Rate Laboratory test result [facility] ([facility], [facility]) <content>Units are mL/min/1.73 m2</content>
<content></content>
<content>Chronic Kidney Disease Staging per NKF:</content>
<content></content>
<content>Stage I & II GFR >=60 Normal to Mildly Decreased</content>
<content>Stage III GFR 30- 59 Moderately Decreased</content>
<content>Stage IV GFR 15-29 Severely Decreased</content>
<content>Stage V GFR <15 Very Little GFR Left</content>
<content>ESRD GFR <15 on CENTERLESS GRINDER TENDER</content>
<content></content> Sodium Level 139 meq/L 136-145 [facility] ([facility], [facility]) Potassium Serum 4.3 meq/L 3.5-5.1 [facility] ([facility], [facility]) Chloride Level 105 meq/L 98-107 [facility] ([facility], [facility]) Carbon Dioxide Level 30 meq/L 21-32 [facility] ([facility], [facility]) Anion Gap 4 meq/L 8-16 [facility] ([facility], [facility]) Ast/Sgot 7 U/L 7-37 [facility] ([facility], [facility]) Calcium Level 9.5 mg/dL 8.5-10.1 [facility] ([facility], [facility]) Alt/SGPT 17 U/L 12-78 [facility] ([facility], [facility]) Bilirubin,Total 0.3 mg/dL 0.2-1.0 [facility] ([facility], [facility]) Alkaline Phosphatase 85 U/L 45-117 [facility] ( [facility] Albumin 4.1 GM/DL 3.2-5.2 [facility] ([facility], [facility]) Total Protein 7.6 GM/DL 6.4-8.2 [facility] ([facility], [facility]) Albumin/Globulin Ratio 1.2 1.2-2.2 [facility] ([facility], [facility]) ID Date Data Source [id number] 07/10/2020 02:44:00 PM EST [facility] ([facility], [facility]) Name Value Range Interpretation Code Description Data Rachel rce(s) Supporting Document(s) White Blood Count 6.7 10 4.0-10.0 [facility] ([facility], [facility]) Red Blood Count 4.57 10 4.00-5.40 [facility] ([facility], [facility]) Hemoglobin 14.1 g/dL 12.0-15.5 [facility] ([facility], [facility]) Hematocrit 45.2 % 36.0-47.0 [facility] ([facility]) Mean Corpuscular Volume 98.9 fl 80.0-96.0 M EDENT ([facility], [facility]) Mean Corpuscular HGB Conc 31.2 g/dL 32.0-36.5 [facility] ([facility], [facility]) Mean Corpuscular Hemoglobin 30.9 pg 27.0-33.0 [facility] ([facility], [facility]) Red Cell Distribution Width 12.5 % 11.5-14.5 [facility] ([facility], [facility]) Platelet Count, Automated 247 10 150-450 [facility] ([facility], [facility]) Neutrophils % 65.4 % 36.0-66.0 [facility] ([facility], [facility]) Lymph % 26.9 % 24.0-44.0 [facility] ([facility], [facility]) [place] % 6.6 % 2.0-8.0 [facility] ([facility], [facility]) Eos % 0.6 % 0.0-3.0 [facility] ([facility], [facility]) Baso % 0.4 % 0.0-1.0 [facility] ([facility], [facility]) Immature Granulocyte % 0.1 % 0-3.0 [facility] ([facility], [facility]) Neutrophils # 4.4 10 1.5-8.5 [facility] ([facility], [facility]) Nucleated Red Blood Cell % 0.0 % 0-0 MED ENT ([facility], [facility]) Lymph # 1.8 10 1.5-5.0 [facility] ([facility], [facility]) [place] # 0.4 10 0.0-0.8 [facility] ([facility], [facility]) Baso # 0.0 10 0.0-0.2 [facility] ([facility], [facility]) Eos # 0.0 10 0.0-0.5 [facility] ([facility], [facility]) ID Date Data Source [id number] 07/04/2020 01:30:00 PM EST [facility] ([facility]) Name Value Range Interpretation Code Description Data Rachel rce(s) Supporting Document(s) Influenza virus A RNA [Presence] in Unsp ecified specimen by Probe and target amplification method Laboratory test result [facility] ([facility]) Influenza virus B RNA [Presence] in Unsp ecified specimen by Probe and target amplification method Laboratory test result [facility] ([facility]) ID Date Data Source [id number] 07/04/2020 01:29:00 PM EST [facility] Name Value Range Interpretation Code Description Data Rachel rce(s) Supporting Document(s) SARS coronavirus 2 RNA Not Detected [facility] and reported by [facility] ID Date Data Source [id number] 07/07/2020 04:20:00 PM EST [facility] Name Value Range Interpretation Code Description Data Rachel rce(s) Supporting Document(s) SARS-CoV-2, JUAN Not Detected Not Detected [facility] This nucleic acid amplification test was developed and its performancecharacteristics determined by [facility]. Nucleic acidamplification tests include RT-PCR and TMA. This test has not beenFDA cleared or approved. This test has been authorized by FDA underan Emergency Use Authorization (EUA). This test is only authorizedfor the duration of time the declaration that circumstances existjustifying the authorization of the emergency use of in vitrodiagnostic tests for detection of SARS-CoV-2 virus and/or diagnosisof COVID-19 infection under section 564(b)(1) of the Act, 21 U.S.C.360bbb-3(b) (1), unless the authorization is terminated or revokedsooner.When diagnostic testing is negative, the possibility of a falsenegative result should be considered in the context of a patient'srecent exposures and the presence of clinical signs and symptomsconsistent with COVID- 19. An individual without symptoms of COVID-19and who is not shedding SARS-CoV-2 virus would expect to have anegative (not detected) result in this assay. Procedure Social History Code Duration Value Status Description Data Source(s ) Smoking 11/01/2020 12:00:00 AM EDT Current Smoker completed Curre nt Smoker eCW1 ([facility]) Smoking 11/01/2020 12:00:00 AM EDT Current Smoker completed Curre nt Smoker eCW1 ([facility]) Vital Signs ID Date Data Source UNK Name Value Range Interpretation Code Description Data Source(s) Systolic blood pressure 116 mm[Hg] 116 mm[Hg] M EDENT ([facility]) Body weight 170.38 [lb_av] 170.38 [lb_av] MEDEN T ([facility]) Body weight 77.282 kg 77.282 kg [facility] ([facility]) Body height 68 [in_i] 68 [in_i] [facility] ([facility]) 5'8" Body mass index (BMI) [Ratio] 25.9 kg/m2 25.9 k g/m2 [facility] ([facility]) Body surface area Derived from formula 1.91 m2 1.91 m2 [facility] ([facility]) Diastolic blood pressure 76 mm[Hg] 76 mm[Hg] [facility] ([facility]) Respiratory rate 18 /min 18 /min [facility] ( [facility]) Oxygen saturation in Arterial blood by Pulse oximetry 97 % 97 % [facility] ([facility]) Body weight 164.2 [lb_av] 164.2 [lb_av] eCW1 ([facility]) Body height 68 [in_i] 68 [in_i] eCW1 ([facility]) Body mass index (BMI) [Ratio] 24.96 kg/m2 24.96 kg/m2 eCW1 ([facility]) Heart rate 87 /min 87 /min eCW1 ([facility]) Respiratory rate 16 /min 16 /min eCW1 ([facility]) Body temperature 97.6 [degF] 97.6 [degF] eCW1 ( [facility]) Systolic blood pressure 111 mm[Hg] 111 mm[Hg] e CW1 ([facility]) Diastolic blood pressure 75 mm[Hg] 75 mm[Hg] eCW1 ([facility]) Respiratory rate 16 /min 16 /min [facility] ( [facility], [facility]) Body height 67 [in_i] 67 [in_i] [facility] ([facility], [facility]) 5'7" Body weight 155.00 [lb_av] 155.00 [lb_av] MEDEN T ([facility], [facility]) Body temperature 97.0 [degF] 97.0 [degF] [facility] ([facility], [facility]) Oxygen saturation in Arterial blood by Pulse oximetry 97 % 97 % [facility] ([facility], [facility]) Body mass index (BMI) [Ratio] 24.3 kg/m2 24.3 k g/m2 [facility] ([facility], [facility]) Systolic blood pressure 115 mm[Hg] 115 mm[Hg] M EDENT ([facility], [facility]) Diastolic blood pressure 80 mm[Hg] 80 mm[Hg] [facility] ([facility], [facility]) Heart rate 95 /min 95 /min [facility] ([facility], [facility]) Body temperature 98.1 [degF] 98.1 [degF] [facility] ([facility]) Respiratory rate 16 /min 16 /min [facility] ( [facility]) Oxygen saturation in Arterial blood by Pulse oximetry 98 % 98 % [facility] ([facility]) Heart rate 87 /min 87 /min [facility] ([facility]) ID Date Data Source [id number] 01/03/2021 02:45:29 PM EDT [facility] Name Value Range Interpretation Code Description Data Source(s) WEIGHT RECORDED 160.00 pounds 160.00 pounds [facility] Height 67 Inches 067 Inches [facility]
[2021-03-09 22:47] LABS: BASO % 0.3 % (0.0-1.0); EOS # 0.1 10^3/uL (0.0-0.5); EOS % 1.8 % (0.0-3.0); HEMATOCRIT 40.6 % (36.0-47.0); HEMOGLOBIN 13.4 g/dl (12.0-15.5); LYMPH # 2.4 10^3/uL (1.5-5.0); LYMPH % 34.9 % (24.0-44.0); MEAN CORPUSCULAR HEMOGLOBIN 32.4 pg (27.0-33.0); MEAN CORPUSCULAR VOLUME 98.3 fl (80.0-96.0); MONO # 0.6 10^3/uL (0.0-0.8); MONO % 8.4 % (2.0-8.0); NEUTROPHILS # 3.7 10^3/uL (1.5-8.5); NEUTROPHILS % 54.5 % (36.0-66.0); PLATELET COUNT, AUTOMATED 220 10^3/uL (150-450); RED BLOOD COUNT 4.13 10^6/uL (4.00-5.40); WHITE BLOOD COUNT 6.8 10^3/uL (4.0-10.0)
[2021-03-09 23:12] LABS: BLOOD UREA NITROGEN 7 MG/DL (7-18); CALCIUM LEVEL 9.4 MG/DL (8.5-10.1); CARBON DIOXIDE LEVEL 29 MEQ/L (21-32); CHLORIDE LEVEL 106 MEQ/L (98-107); CREATININE FOR GFR 0.59 MG/DL (0.55-1.30); GLOMERULAR FILTRATION RATE > 60.0 (>60); GLUCOSE, FASTING 86 MG/DL (70-100); POTASSIUM SERUM 3.9 MEQ/L (3.5-5.1); SODIUM LEVEL 141 MEQ/L (136-145)
[2021-03-09 23:20] LABS: HCG, SERUM QUALITATIVE NEGATIVE (NEGATIVE)
--- OUTSIDE RECORDS SUMMARY | 2021-03-10 06:26 | CCD ---
Author Author [facility] Organization [facility] Address Unknown Phone Unavailable Care Team Providers Care Private Inquiry Agent Name Role Phone Nwogu, U John DO [...] Unavailable Unavailable Dante Aiken MD Unavailable Unavailable aDnte Aiken MD Unavailable Unavailable Dante Aiken MD Unavailable Unavailable Dante Aiken MD Unavailable Unavailable Dante Aiken MD Unavailable Unavailable Dante Aiken MD Unavailable Unavailable Dante Aiken MD Unavailable Unavailable Dante Aiken MD Unavailable Unavailable Dante Aiken MD Unavailable Unavailable Dante Aiken MD Unavailable Unavailable Dnate Aiken MD Unavailable Unavailable Dante Aiken MD [...] Unavailable Unavailable Dante Aiken MD Unavailable Unavailable LAROCK, Jie MICHAEL FLOAT BUILDER Unavailable Unavailable LAROCK, Jie MICHAEL FLOAT BUILDER Unavailable Unavailable LAROCK, Jie MICHAEL FLOAT BUILDER Unavailable Unavailable LAROCK, Jie MICHAEL FLOAT BUILDER Unavailable Unavailable LAROCK, Jie MICHAEL FLOAT BUILDER Unavailable Unavailable LAROCK, Jie MICHAEL FLOAT BUILDER Unavailable Unavailable LAROCK, Jie MICHAEL FLOAT BUILDER Unavailable Unavailable LAROCK, Jie MICHAEL FLOAT BUILDER Unavailable Unavailable LAROCK, Jie MICHAEL FLOAT BUILDER Unavailable Unavailable LAROCK, Jie MICHAEL FLOAT BUILDER Unavailable Unavailable LAROCK, Jie MICHAEL FLOAT BUILDER Unavailable Unavailable LAROCK, Jie MICHAEL FLOAT BUILDER Unavailable Unavailable LAROCK, Jie MICHAEL FLOAT BUILDER Unavailable Unavailable LAROCK, Jie MICHAEL FLOAT BUILDER Unavailable Unavailable LAROCK, Jie MICHAEL FLOAT BUILDER Unavailable Unavailable LAROCK, Jie MICHAEL FLOAT BUILDER Unavailable Unavailable LAROCK, Jie MICHAEL FLOAT BUILDER Unavailable Unavailable LAROCK, Jie MICHAEL FLOAT BUILDER Unavailable Unavailable LAROCK, Jie MICHAEL FLOAT BUILDER Unavailable Unavailable LAROCK, Jie MICHAEL FLOAT BUILDER Unavailable Unavailable LAROCK, Jie MICHAEL FLOAT BUILDER Unavailable Unavailable LAROCK, Jie MICHAEL FLOAT BUILDER Unavailable Unavailable SYMENOW, G CHRISTOPHER PA Unavailable [...] OSWALD, Rancho DEE MD Unavailable Unavailable OSWALD, L JENNY MD Unavailable Unavailable OSWALD, Rancho DEE MD Unavailable Unavailable OSWALD, Rancho DEE MD Unavailable Unavailable OSWALD, L JENNY MD Unavailable Unavailable OSWALD, Rancho JENNY MD Unavailable Unavailable OSWALD, L JENNY MD Unavailable Unavailable OSWALD, L JENNY MD Unavailable Unavailable OSWALD, L JENNY MD Unavailable Unavailable OSWALD, Rancho DEE MD Unavailable Unavailable OSWALD, Rancho DEE MD Unavailable Unavailable OSWALD, Rancho DEE MD Unavailable Unavailable OSWALD, Rancho DEE MD Unavailable Unavailable OSWALD, L JENNY MD Unavailable Unavailable OSWALD, L JENNY MD Unavailable Unavailable Lopez, A Vernon PA [...] Maring, Brent PA Unavailable Unavailable Nwogu, U Ojhn DO Unavailable Unavailable Nwogu, U John DO [...] Nwogu, U John DO Unavailable Unavailable Chan, Sherrie Mira PA Unavailable [...] Sage DO Unavailable Unavailable Doug Quevedo Unavailable [phone] Saadhaw, Doug Unavailable [phone] SaadhawDoug Unavailable [phone] Saadhaw, Doug Unavailable [phone] Doug Quevedo Unavailable [phone] SaadhawDoug Unavailable [phone] RUIZ, [facility] Unavailable Unavailable CHANLIECCO, C JOHN [...] is protected by Article 27-F of the [facility] Public Health law. If you continue you may have access to information: Regarding HIV / AIDS; Provided by facilities licensed or operated by the [facility] Office of Mental Health; or Provided by the [facility] Office for People With Developmental Disabilities. If such information is present, then the following [facility] mandated warning applies: This information has been [...] law may result in a fine or assisted sentence or both. A general authorization for the release of medical or other information is NOT sufficient authorization for further disc losure. Allergies and Adverse Reactions Type Description Substance Reaction Status Data Source(s ) No Known Drug Allergies No Known Drug Allergies [facility] Propensity to adverse reactions BEE STING BEE STING ANAPHYLAXIS [facility] Food allergy COCONUT COCONUT ITCHING [facility] Food allergy WATERMELON WATERMELON ITCHING [facility] Encounters Encounter Providers Location Date Indications Data Source(s ) Unknown [address] [facility], [facility] [address] 02/27/2021 12:00:00 AM EDT eCW1 ([facility]) Outpatient Attender: John Johnson DOConsultant: Kathy barrientos MD 12/20/2020 01:15:00 PM EDT - 12/20/2020 01:15:00 PM EDT [facility] Outpatient Attender: John Johnson DO [facility] 12/09 01:15:00 PM EDT [facility] ([facility]) Emergency Attender: TJ TURNERConsultant: Kathy dave MD 12/19/2020 01:35:00 PM EDT - 12/19/2020 04:10:00 PM EDT [facility] Patient discharged. Emergency Attender: JENNY AKERS MDConsultant: Kathy dave MD 12/18/2020 10:14:00 PM EDT - 12/19/2020 04:00:00 AM EDT [facility] Patient discharged. Emergency Attender: JOHN ANGULO MDConsultant: Rojas Aiken MD 12/02/2020 03:34:00 PM EDT - 12/02/2020 06:51:00 PM EDT [facility] Patient discharged. Outpatient [address] [facility] [address] 11/01/2020 12:00:00 AM EDT eCW1 ([facility]) Emergency Attender: BRIDGER BLANCO PAReferrer : Kathy Aiken MD EMERGENCY ROOM-EMERGENCY ROOM 10/17/2020 11:40:00 PM EDT - 10/17/2020 11:40:00 PM EDT [facility] Patient discharged. Outpatient Attender: Sage SULLIVANonsultant: Kathy meza MD 10/15/2020 07:45:00 AM EDT - 10/15/2020 12:24:00 PM EDT [facility] Patient discharged. Outpatient Attender: Sage Gomez DOConsultant: Kathy meza MD 10/10/2020 10:41:00 AM EDT - 10/10/2020 11:41:00 AM EDT [facility] Patient discharged. Outpatient Attender: Brent WALLER 10/06/19 09:54:06 AM EDT - 10/05/2020 10:33:25 AM EDT [facility] ([facility] ) Outpatient Attender: Sage Magañaant: Kathy meza MD 10/04/2020 01:18:13 PM EDT - 10/05/2020 09:05:00 AM EDT [facility] Patient discharged. Outpatient Attender: Doug Quevedo 09/26 03:22:43 PM EDT - 09/26/2020 04:56:57 PM EDT [facility] ([facility] ) Outpatient Attender: FERNANDA FORMAN NP 12/2020 03:06:47 PM EDT - 09/15/2020 04:55:09 PM EDT [facility] ([facility] ) Emergency Attender: TJ Skysultant: Kathy dave MD 08/27/2020 10:54:00 PM EDT - 08/28/2020 02:23:00 AM EDT [facility] Patient discharged. Outpatient Attender: Brent WALLER 08/28/19 01:59:07 PM EDT - 08/27/2020 02:35:23 PM EDT [facility] ([facility] ) Emergency Attender: JENNY AKERS MDConsultant: [facility] 08/14/2020 06:54:00 PM EDT - 08/14/2020 08:29:00 PM EDT [facility] Patient discharged. Outpatient Attender: Mira morales 07/10/2020 12:00:00 PM EST [facility] ([facility]) Outpatient Attender: Vernon WALLER 01:23:00 PM EST - 07/04/2020 01:23:00 PM EST [facility] Immunizations Vaccine Date Status Description Data Source(s) COVID-19 VACCINE [employer] 02/20/2021 12:00:00 AM EDT completed [facility] Vaccine Series Complete: YESThis Data wa s Submitted to [facility] Via [employer]. COVID-19 VACCINE Pfizer 01/30/2021 12:00:00 AM EDT completed [facility] Vaccine Series Complete: NOThis Data was Submitted to [facility] [employer]. Medications Medication Brand Name Start Date Product Form Dose Route Admi nistrative Instructions Pharmacy Instructions Status Indications Reaction Description Data Source(s) Rocephin/Ceftriaxone Sodium Injection Per 250 MG 07/10 12:00:00 AM EST completed [facility] ([facility]) Medication administered onsite No Active Medications 07/10/2020 12:00:00 AM EST completed [facility] ([facility]) doxycycline hyclate 100 MG Oral Capsule Doxycycline Hyclate 07/10/2020 12:00:00 AM EST active [facility] ([facility], [facility]) Insurance Providers Payer name Policy type / Coverage type Policy ID Covered constitution party ID Covered constitution party's relationship to viveros Policy Viveros Plan Information [facility] [id number] [facility] [id number] [facility] [id number] [facility] Plan [facility] [id number] Self [id number] Needs Workers Comp Information WorkComp Health Claim [id number] Employee [id number] [employer]AN [id number] S [id number] [facility] [place] [id number] 01 [id number] [facility] [id number] [facility] [place] UNAVAILABLE 01 UNAVAILABLE [facility] [id number] H [id number] [facility] [id number] SP [id number] [facility] [id number] H [id number] [facility] [id number] 18 [id number] [facility] [id number] 01 [id number] [facility] [id number] 18 [id number] Problems, Conditions, and Diagnoses Code Display Name Description Problem Type Effective Dates Data Source(s) R102 Pelvic and perineal pain Pelvic and perineal pain Diag nosis 12/19[facility] Personal history of other diseases of th e female genital tract Personal history of other diseases of the female genital tract Diagnosis 12/19/2020 01:35:00 PM [facility] S37480 Nicotine dependence, cigarettes, uncompl icated Nicotine dependence, cigarettes, uncomplicated Diagnosis 12/19/2020 01:35:00 PM [facility] V58148 Unspecified ovarian cyst, left side Unspecified ovarian cyst, left side Diagnosis 12/19/2020 01:35:00 PM [facility] N9489 Other specified conditions a ssociated with female genital organs and menstrual cycle Other specified conditions associated wi th female genital organs and menstrual cycle Diagnosis 12/18/2020 10:14:00 PM [facility] R1032 Left lower quadrant pain Left lower quadrant pain Diag nosis 12/18/2020 10:14:00 PM [facility] J71163 Unspecified place in unspeci fied non-institutional (private) residence as the place of occurrence of the external cause Unspecified place in unspecified non-institutional (private) residence as the place of occurrence of the external cause Diagnosis 12/02/2020 03:34:00 PM [facility] [id number] Contact with other sharp obj ect(s), not elsewhere classified, initial encounter Contact with other sharp object(s), not elsewhere classified, initial encounter Diagnosis 12/02/2020 03:34:00 PM [facility] Z23 Encounter for immunization Encounter for immunization Diagnosis 12/02/2020 03:34:00 PM [facility] I47542 Nicotine dependence, other tobacco produ ct, uncomplicated Nicotine dependence, other tobacco product, uncomplicated Diagnosis 12/02 03:34:00 PM [facility] [id number] Abrasion, right foot, initial encounter Abrasion, right foot, initial encounter Diagnosis 12/02/2020 03:34:00 PM [facility] [id number] Unspecified injury of right foot, initia l encounter Unspecified injury of right foot, initial encounter Diagnosis 12/02/2020 03:34:00 PM [facility] Z90.49 Acquired absence of other specified part s of digestive tract ACQUIRED ABSENCE OF OTHER SPECIFIED PARTS OF DIGES Diagnosis 10/17/2020 11:40:0 0 PM [facility] Z79.1 halfway (current) use of non-steroidal anti-inflammatories (NSAID) PRISON (CURRENT) USE OF NON-STEROIDAL NON-INFLA Diagnosis 10/18/19 21 11:40:00 PM [facility] F17.210 Nicotine dependence, cigarettes, uncompl icated NICOTINE DEPENDENCE, CIGARETTES, UNCOMPLICATED Diagnosis 10/17/2020 11:40:00 PM [facility] G89.18 Other acute postprocedural pain OTHER ACUTE POST PROCEDURAL PAIN Diagnosis 10/17/2020 11:40:00 PM [facility] N13.2 Hydronephrosis with renal and ureteral c alculous obstruction HYDRONEPHROSIS WITH RENAL AND URETERAL CALCULOUS O Diagnosis 01/2021 11:40:00 PM [facility] R10.2 Pelvic and perineal pain PELVIC AND PERINEAL PAIN Diag nosis 10/17/2020 11:40:00 PM [facility] M78790 Nicotine dependence, unspecified, uncomp licated Nicotine dependence, unspecified, uncomplicated Diagnosis 10/15/2020 07:45:00 AM [facility] G8929 Other chronic pain Other chronic pain Diagnosis 11/2020 07:45:00 AM EDT [facility] N809 Endometriosis, unspecified Endometriosis, unspecified Diagnosis 10/15/2020 07:45:00 AM EDT [facility] 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) Diagnosis 10/15/2020 07:45:00 AM EDT [facility] N7011 Chronic salpingitis Chronic salpingitis Diagnosis 0 10/15/2020 07:45:00 AM EDT [facility] Z1152 ENCOUNTER FOR SCREENING FOR COVID-19 ENCOUNTER F OR SCREENING FOR COVID-19 Diagnosis 10/10/2020 10:41:00 AM EDT [facility] T65042 Encounter for other preprocedural examin ation Encounter for other preprocedural examination Diagnosis 10/05/2020 08:15:00 AM EDT [facility] N31377 Elevated white blood cell count, unspeci fied Elevated white blood cell count, unspecified Diagnosis 08/27/2020 10:54:00 PM EDT [facility] R7402 Elevation of levels of lactic acid dehyd rogenase [LDH] Elevation of levels of lactic acid dehydrogenase [LDH] Diagnosis 08/27/2020 10:54:00 PM E DT [facility] B349 Viral infection, unspecified Viral infection, unspecif ied Diagnosis 08/27/2020 10:54:00 PM EDT [facility] R1012 Left upper quadrant pain Left upper quadrant pain Diag nosis 08/27/2020 10:54:00 PM EDT [facility] R1031 Right lower quadrant pain Right lower quadrant pain Di agnosis 08/14/2020 06:54:00 PM EDT [facility] N94.9 [id number] Adnexal cyst Problem 11/01/2020 12:00:00 AM EDT eCW1 ([facility]) Surgeries/Procedures Procedure Description Date Indications Data Source(s) OFFICE OUTPATIENT NEW 30 MINUTES 12/20/2020 12:00:00 A M EDT [facility] ([facility]) Therapeutic, Prophylactic Or Diagnostic Injection Subq/Im 07/10/2020 12:00:00 AM EST [facility] ([facility]) Results ID Date Data Source [id number] 02/06/2021 05:14:00 PM EDT [facility] Name Value Range Interpretation Code Description Data Rachle rce(s) Supporting Document(s) SARS coronavirus 2 RNA [Presence] in Res piratory specimen by JUAN with probe detection NEGATIVE [facility] This lab was ordered by [facility] a nd reported by [facility]. ID Date Data Source [id number] 10/29/2020 09:42:00 [place] [address] OPERATIVE SUMMARYNAME: JOCELINE Nguyễn DATE OF : 1995ATTENDING PHYS: SAGE GOMEZ DO DATE: 10/15/20 MR#: [id number] OF PROCEDURE: 10/15/2020HISTORY:Zaria is a 25-year-old female [...] was placed in the bladder for 1 [place] [address] OPERATIVE SUMMARYNAME: JOCELINE Nguyễn DATE OF : 1995ATTENDING PHYS: SAGE GOMEZ DO DATE: 10/15/20 MR#: [id number]. We then turned our attention to the [...] a copy of this report to [facility].DD: SAGE GOMEZ DO 10/29/20 09:03DT: MARCUS 10/29/20 09:19DS: SAGE GOMEZ DO 01/03/21 14:45 2 Name Value Range Interpretation Code Description Data Rachel rce(s) Supporting Document(s) ID Date Data Source [id number] 12/20/2020 01:44:00 PM EDT [facility] ([facility]) Name Value Range Interpretation Code Description Data Rachel rce(s) Supporting Document(s) Pelvic Laboratory test result [facility] ([facility]) ID Date Data Source [id number] 12/19/2020 07:24:00 PM EDT [facility] [place] [address] PHONE: [phone] FAX: [phone] Name .................. : JOCELINE Nguyễn Acct Number.................. : [id number] ROOM. ................. : TR-06 MR Number ................... : [id number] Stay type ............. : E/R Discharge Date......... ... : 12/19/20 Admit Date ......... : 12/19/20 Admit Phys .................... : YUE WILKINS Date of ....... : 1995 Family Phys ................... : JOCELYNE VEGA Phone .................. : [phone] Age ................................ : 25 Film# .................. .:[id number] Sex ................................. : F Unsigned transcriptions are preliminary reports and do not represent a medical or legal document TRANSVAGINAL(NON OB) 07027 COMPLETE:12/19/20 15:04 KNB 55935 Reason(s): left pelvic pain, 5.8 cm ovarian [...] 12/19/20 19:24, JWS [address] [place] [address] PHONE: [phone] FAX: [phone] Name .................. : JOCELINE Nguyễn Acct Number.................. : [id number] ROOM. ................. : TR-06 Number ................... : [id number] Stay type ............. : E/R Discharge Date......... ... : 12/19/20 Admit Date ......... : 12/19/20 Admit Phys .................... : YUE WILKINS Date of ....... : 1995 Family Phys ................... : JOCELYNE VEGA Phone .................. : [phone] Age ................................ : 25 Film# .................. .:[id number] Sex ................................. : F Unsigned transcriptions are preliminary reports and do not represent a medical or legal document TRANSVAGINAL(NON OB) 77613 COMPLETE:12/19/20 15:04 KNB 79047 Reason(s): left pelvic pain, 5.8 cm ovarian cyst on CT 12-18-20 Transcribe Initials: RIANNA , Transcribe Date: 12/19/20 18:40, Dictation Date: Copy for: EMERGENCY DEPT via modem Copy for: 710 MED REC DISCHARGED Page 2 of 2 Name Value Range Interpretation Code Description Data Rachel rce(s) Supporting Document(s) ID Date Data Source [id number] 12/19/2020 01:35:00 PM EDT [facility] 1 OrderSheet [facility] Emergency Department [address] [place] [address] Phone #: ext- [phone] 12/19/2020 13:29 Patient: ZARIA CAR Sex: F : 1995 Age: 25yWEIGHT:72.5 kg (S)ALLERGIES: No Known Drug AllergyCHIEF COMPLAINT: pelvic painDIAGNOSIS: Cyst of ovaryLAB ORDERSOrder Description Priority Entered Acknowledged InitialedDIAGNOSTIC STUDY ORDERSOrder Description Priority Entered Acknowledged InitialedUS STAT 14:09 12/19/2020 14:45 Araceli,TRANSVAGINAL Tj Turner R.N.(NON OB) Tejas;(Oxygen?(No)) Reason for Study: left pelvic pain, 5.8 cm ovarian cyst on CT [id number]/IV/DRIP/FLUID ORDERSOrder Description Pr iority Entered Acknowledged InitialedNS IV 500 mL 14:09 12/19/2020 14:42 Araceli,Bolus: : Bolus 500 Tj Turner R.N.mL, then 150 mL/hr M.DAzul;(X1)Toradol 15 mg IVP 14:12/19/2020 14:41 Araceli,X1 dose: 15 mg Turrin, Tj Georgia R.N.(NOW x1) Dante.DAzul;Ativan IVP 1 mg 14:12/19/2020 14:41 Araceli(HIGH ALERT Julianerin, Tj Georgia R.N.MEDICATION) Tejas;GENERAL ORDERSOrder Description Priority Entered Acknowledged Initialed[Electronically signed by Georgia Charles R.N. (16:10 12/19/2020)][Electronically signed by Tj Turner M.D. (16:39 12/19/2020)][Electronically locked by Georgia Charles R.N. (16:10 12/19/2020)] Name Value Range Interpretation Code Description Data Rachel rce(s) Supporting Document(s) ID Date Data Source [id number] 12/19/2020 01:35:00 PM EDT [facility] 1 Medication Reconciliation Report [facility] Emergency Department [address] [place] [address] Phone #: ext- [phone] 12/19/2020 13:29 Patient: [...] 14 tablet. Refills: 0. Substitution permitted.[id number] [address], [place] [id number]. . -- Tj Turner M.D. Name Value Range Interpretation Code Description Data Rachel rce(s) Supporting Document(s) ID Date Data Source [id number] 12/19/2020 01:35:00 PM EDT [facility] 1 Medication Administration Record [facility] Emergency Department [address] [place] [address] Phone #: ext- [phone] 12/19/2020 13:29 Patient: ZARIA CAR Sex: F : 1995 Age: 25yWeight: 72.5 kgHeight/Length: 67 inBMI: 25.1ALLERGIES: No Known Drug Allergy Date/Time Medication Administered Medication OrderedStart NS [IV] NS IV 500 mL Bolus: : Bolus 54213:42 12/19/2020 Dose: IV Fluids mL, then 150 mL/hr (X1)Georgia Charles R.N. Bolus: 500 mL over 1 hour(s)---- Dispensed: 500 mL bagStop Site: #1 left AC15:58 12/19/2020ofGeorgia shankar R.N.Given TORADOL [IVP] (KETOROLAC Toradol 15 mg IVP X1 dose: 15 mg14:41 12/19/2020 TROMETHAMINE) (NOW x1)Georgia Charles R.N. Dose: 15 mg IVP Site: #1 left ACGiven ATIVAN [IVP] (LORAZEPAM) Ativan IVP 1 mg (HIGH ALERT14:41 12/19/2020 Dose: 1 mg IVP MEDICATION)Georgia Charles R.N. Site: #1 left AC Name Value Range Interpretation Code Description Data Rachel rce(s) Supporting Document(s) ID Date Data Source [id number] 12/19/2020 01:35:00 PM EDT [facility] 1 General Instructions [facility] Emergency Department [address] [place] [address] Phone #: ext- [phone] 12/19/2020 13:29 Patient: ZARIA CAR Sex: F : 1995 Age: 25ySingle left ovarian cyst (complex, hemorrhagic vs. endometrioma). No torsion of ovary.INSTRUCTIONS Drink plenty of fluids. Do not smoke. No alcohol. (YOU HAVE AN APPOINTMENT TOMORROW AT [facility] AT 13:[address] JOHNSON).Warnings: Further evaluation is necessary in order to conduct further tests ([facility] ON 12/20 AT 13:05HRS). It is very [...] 14 tablet. Refills: 0. Substitution permitted.Pharmacy - [id number] - [address], [place] [id number]. FaxNumber: .Follow-up:Return to the emergency department as needed. Follow up with an freelance art director tomorrow as scheduled.Reason for referral: evaluation and treatment. Summary of care provided to patient via paper.Understanding of the discharge instructions verbalized by patient. Expected course of illness, dischargeinstructions, activity level, diet, prescriptions x1, follow-up appointment and risks and benefits of treatmentreviewed with patient and understanding verbalized. Agrees to plan of care.Follow-up with: [facility], , , [address] [place] [address], [facility] Follow up tomorrow as scheduled. Reason for referral: evaluation and treatment. Summary of careprovided to patient via paper. 2 General Instructions [facility] Emergency Department [address] [place] [address] Phone #: ext- [phone] 12/19/2020 13:29 Patient: ZARIA CAR Sex: F [...] pain, your healthcare provider may recommend using [id number] pain medicine. If needed, your provide may [...] check if a cyst 3 General Instructions [facility] Emergency Department [address] [place] [address] Phone #: ext- [phone] 12/19/2020 13:29 Patient: [...] Weakness, dizziness, or fainting Abnormal vaginal bleeding [id number] [employer]. [address] [place] [address], [place] [address]. All rights reserved. This information is not intended as asubstitute for professional medical care. Always follow your healthcare professional's instructions. You have been given the following additional information: Ovaria n Cyst(Electronically signed by Tj Turner M.D. 12/19/2020 16:39) Name Value Range Interpretation Code Description Data Rachel rce(s) Supporting Document(s) ID Date Data Source [id number] 12/19/2020 01:35:00 PM EDT [facility] 1 Clinical Report - Nurses [facility] Emergency Department [address] [place] [address] Phone #: ext- [phone] 12/19/2020 13:29 Patient: ZARIA CAR Sex: F : 1995 Age: 25yTRIAGEArrived by private vehicle. Historian: patient. Accompanied by family. ( presents with c/o abd. pain, ptwas just seen here lastnight and instructed to call [employer] [employer] [facility] and to come back if no relief with meds. calledclinic and gracieest appt 01/05).Triage time: 13:40 12/19/2020. Acuity: LEVEL 4.Chief Complaint: ABDOMINAL PAIN.Alert. 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 Seen within the last 24 hours at this facility; seen for similar symptoms.SEPSIS SCREEN: SIRS SCREEN NEGATIVE. SEPSIS SCREEN NEGATIVE. No suspected or confirmedsigns of infection present. --13:55 12/19/20 Shaylee Le RN13:49 12/19/20. BP: 112/66. MAP: 81. HR: 79. RR: 21. O2 saturation: 100%. Temp: 98.5 F. Pain levelnow: /10. --13:55 12/19/20 Shaylee Le RN.Weight: 72.5 kg stated. Height/Length: 67 inches Per Patient. BMI: 25.1. --13:52 12/19/20 Shaylee Le,VAIBHAV.MedicationsNone. --13:53 12/19/20 Shaylee Le, VAIBHAV.AllergiesNo Known Drug Allergy. --13:53 12/19/20 ReyShaylee tovar RN.PROBLEMS:Ectopic .Ovarian Cyst.Migraine Headache. --13:53 12/19/20 Shaylee Le RN.Medication/allergy information source: the patient and patient's previous visit record. --13:55 12/19/20Shaylee Le RN.ADDITIONAL SURGERIES:Cholecystectomy.. 2 Clinical Report - Nurses [facility] Emergency Department [address] [place] [address] Phone #: ext- [phone] 12/19/2020 13:29 Patient: ZARIA CAR Sex: F [...] verified and 3 Clinical Report - Nurses [facility] Emergency Department [address] [place] [address] Phone #: ext- [phone] 12/19/2020 13:29 Patient: [...] Charles R.N. 4 Clinical Report - Nurses [facility] Emergency Department [address] [place] [address] Phone #: ext- [phone] 12/19/2020 13:29 Patient: ZARIA CAR Sex: F : 1995 Age: 25y Condition at departure: improved. No learning barriers present. Reviewed warnings. Reviewed medication(s). Treatments reviewed. Reviewed referrals. Written instructions provided in [place]. The patient was discharged by the physician. She was discharged home. She left ambulatory and via private vehicle. [employer] Libr[employer] driving. --16:09 12/19/20 Georgia Charels R.N. 16:09 12/19/20. Pain level now: 0/10. --16:10 12/19/20 Georgia Charlse R.N.Locked/Released at 12/19/2020 16:10 by Georgia Charles R.N. Name Value Range Interpretation Code Description Data Rachel rce(s) Supporting Document(s) ID Date Data Source [id number] 12/19/2020 01:35:00 PM EDT [facility] 1 Clinical Report - Physicians/Mid Levels [facility] Emergency Department [address] [place] [address] Phone #: ext- [phone] 12/19/2020 13:29 Patient: [...] US done, was told to f/u w [facility], called today and couldn't get in [...] Allergies: 2 Clinical Report - Physicians/Mid Levels [facility] Emergency Department [address] [place] [address] Phone #: ext- [phone] 12/19/2020 13:29 Patient: ZARIA CAR [facility]#: [id number] Sex: F : 1995 Age: 25y No [...] better; we got her an appt w [facility] in [place] tomorrow at 13:05 hrs; d/c instructions given, [...] controlled; 3 Clinical Report - Physicians/Mid Levels [facility] Emergency Department [address] [place] [address] Phone #: ext- [phone] 12/19/2020 13:29 Patient: ZARIA CAR Sex: F [...] alcohol. (YOU HAVE AN APPOINTMENT TOMORROW AT [facility] AT 13:[address] JOHNSON). Warnings: Further evaluation is necessary in order to conduct further tests ([facility] ON 12/20 AT 13:05 HRS). It is [...] tablet. Refills: 0. Substitution permitted. Pharmacy - [id number] - [address], [place] [id number]. . Follow-up: Return to the emergency department as needed. Follow up with an freelance art director tomorrow as scheduled. Reason for referral: evaluation and treatment. Summary of care provided to patient via paper. Understanding of the discharge instructions verbalized by patient. Expected course of illness, discharge instructions, activity level, diet, prescriptions x1, follow-up appointment and risks and benefits of treatment reviewed with patient and understanding verbalized. Agrees to plan of care. Follow-up with: [facility], , , [address], [place], [facility] Follow up tomorrow as scheduled. Reason for referral: evaluation and treatment. Summary of care provided to patient via paper. 4 Clinical Report - Physicians/Mid Levels [facility] Emergency Department [address] [place] [address] Phone #: ext- [phone] 12/19/2020 13:29 Patient: ZARIA CAR Sex: F : 1995 Age: 25y(Electronically signed by Tj Turner M.D. 12/19/2020 16:39) Name Value Range Interpretation Code Description Data Rachel rce(s) Supporting Document(s) ID Date Data Source [id number] 12/19/2020 09:06:00 [place] [address] PHONE: [phone] FAX: [phone] Name .................. : JOCELINE GARCIA Gopi Acct Number.................. : [id number] ROOM. ................. : VT-34 Number ................... : [id number] Stay type ............. : E/R Discharge Date......... ... : 12/19/20 Admit Date ......... : 12/18/20 Admit Phys .................... : COONEYNORM Date of ....... : 1995 Family Phys ................... : JOCELYNE Zdorovio Phone .................. : [phone] Age ................................ : 25 Film# .................. .:[id number] Sex ................................. : F Unsigned transcriptions are preliminary reports and do not represent a medical or legal document CT ABD & PELVIS W/ IV ONLY [id number] COMPLETE:12/19/20 04:47 ARLENE [id number] Reason(s): Abdominal Pain CT ABDOMEN AND PELVIS [...] the lesion. No Page 1 of 2 [facility] [address] [place] [address] PHONE: [phone] FAX: [phone] Name .................. : JOCELINE Nguyễn Acct Number.................. : [id number] ROOM. ................. : VT-34 MR Number ................... : [id number] Stay type ............. : E/R Discharge Date......... ... : 12/19/20 Admit Date ......... : 12/18/20 Admit Phys .................... : COONEYNORM Date of ....... : 1 Family Phys ................... : JOCELYNE GI Phone .................. : [phone] Age ................................ : 25 Film# .................. .:[id number] Sex ................................. : F Unsigned transcriptions are preliminary reports and do not represent a medical or legal document CT ABD & PELVIS W/ IV ONLY 72801 COMPLETE:12/19/20 04:47 ARLENE [id number] Reason(s): Abdominal Pain nodularity. Moderately prominent enhancing [...] rce(s) Supporting Document(s) ID Date Data Source [id number] 12/19/2020 09:06:00 [place] [address] PHONE: [phone] FAX: [phone] Name .................. : JOCELINE GARCIA Gopi Acct Number.................. : [id number] ROOM. ................. : VT-34 Number ................... : [id number] Stay type ............. : E/R Discharge Date......... ... : 12/19/20 Admit Date ......... : 12/18/20 Admit Phys .................... : COONEYNORM Date of ....... : 1995 Family Phys ................... : JOCELYNE VGEA Phone .................. : [phone] Age ................................ : 25 Film# .................. .:[id number] Sex ................................. : F Unsigned transcriptions are preliminary reports and do not represent a medical or legal document ABDOMEN MULTIPLE VIEW [id number] COMPLETE:12/19/20 04:47 ARLENE 85299 Reason(s): Abdominal Pain ABDOMINAL RADIOGRAPH SUPINE AND [...] MD , 12/19/20 09:06, NÉSTOR Transcribe Initials: [facility], Transcribe Date: 12/19/20 08:53, Dictation Date: Page 1 of 2 [place] [address] PHONE: [phone] FAX: [phone] Name .................. : JOCELINE Nguyễn Acct Number.................. : [id number] ROOM. ................. : VT-34 Number ................... : [id number] Stay type ............. : E/R Discharge Date......... ... : 12/19/20 Admit Date ......... : 12/18/20 Admit Phys .................... : COONEYNORM Date of ....... : 1995 Family Phys ................... : JOCELYNE GI Phone .................. : [phone] Age ................................ : 25 Film# .................. .:[id number] Sex ................................. : F Unsigned transcriptions are preliminary reports and do not represent a medical or legal document ABDOMEN MULTIPLE VIEW 24405 COMPLETE:12/19/20 04:47 ARLENE 51181 Reason(s): Abdominal Pain Copy for: EMERGENCY DEPT via modem Copy for: 710 MED REC DISCHARGED Page 2 of 2 Name Value Range Interpretation Code Description Data Rachel rce(s) Supporting Document(s) ID Date Data Source [id number] 12/18/2020 10:14:00 PM EDT [facility] 1 OrderSheet [facility] Emergency Department [address] [place] [address] Phone #: ext- [phone] 12/18/2020 22:21 Patient: ZARIA CAR Sex: F : 1995 Age: 25yWEIGHT:72.5 kg HEIGHT:67 inches BMI:25.1ALLERGIES: No Known Drug AllergyCHIEF COMPLAINT: abdominal painDIAGNOSIS: Cyst of ovaryLAB ORDERSOrder Description Priority Entered Acknowledged InitialedUrinalysis (Clean STAT 22:49 12/18/2020 Ack'd: 22:50 22:51 Lynn Guerrero [facility]) Jenny Akers MD; Vania GuerreronHCG Urine Qual STAT 22:49 12/18/2020 Ack'd: 22:50 [...] 23:45 12/18/2020 Ack'd: 23:45 23:54 Yolanda,(Oxygen?(No)) Jenny Akers MD; Vania Guerrero Reason for Study: Abdominal PainCT Abd PEL W/ IV STAT 00:21 12/19/2020 Ack'd: 00:22 00:32 Yolanda,Contrast Only Jenny Akers MD; Vania Guerrero(Oxygen?(No))(IV?(Yes)) Reason for Study: Abdominal PainMEDICATION/IV/DRIP/FLUID ORDERSOrder Description Priority Entered Acknowledged InitialedIV NS 1000 mL 23:28 12/18/2020 Ack'd: 23:38 23:43 Yolanda,Bolus : Bolus 1000 Jenny Akers MD; Vania Guerrero 2 OrderSheet [facility] Emergency Department [address] [place] [address] Phone #: ext- [phone] 12/18/2020 22:21 Patient: ZARIA CAR Sex: F : 1995 Age: 25ymL (X1)Zofran IVP 4 mg 23:28 12/18/2020 Ack'd: 23:38 23:44 Oswald Guerrero Norma MD; Vnaia GuerreronAcetaminophen IV 00:21 12/19/2020 Ack'd: 00:28 00:41 Yolanda,1000 mg (NOW x1, Jenny Akers MD; Vania Guerreronfami over 15minutes)Toradol IVP 30 mg 00:21 12/19/2020 Ack'd: 00:28 00:32 Yolanda,(NOW x1) Jenny Akers MD; Vania GuerreronGENERAL ORDERSOrder Description Priority Entered Acknowledged Initialed[Electronically signed by Jenny Akers MD (03:56 12/19/2020)][ Electronically signed by Vania Guerrero (04:00 12/19/2020)][Electronically locked by Vania Guerrero (04:00 12/19/2020)] Name Value Range Interpretation Code Description Data Rachel rce(s) Supporting Document(s) ID Date Data Source [id number] 12/18/2020 10:14:00 PM EDT [facility] 1 Medication Reconciliation Report [facility] Emergency Department [address] [place] [address] Phone #: ext- [phone] 12/18/2020 22:21 Patient: [...] rce(s) Supporting Document(s) ID Date Data Source [id number] 12/18/2020 10:14:00 PM EDT [facility] 1 Medication Administration Record [facility] Emergency Department [address] [place] [address] Phone #: [phone] tdl- [phone] 12/18/2020 22:21 Patient: ZARIA CAR Sex: F : 1995 Age: 25yWeight: 72.5 kgHeight/Length: 67 inBMI: 25.1ALLERGIES: No Known Drug Allergy Date/Time Medication Administered Medication OrderedStart IV NS IV NS 1000 mL Bolus : Bolus 875105:43 12/18/2020 Dose: IV Fluids mL (X1)Vania Guerrero, Bolus: 1000 mL over 40 minute(s)---- Dispensed: 1000 mL bagStop Site: #1 left AC00:42 1BVania kirkland,Given ZOFRAN [IVP] (ONDANSETRON HCL) Zofran IVP 4 mg23:44 12/18/2020 Dose: 4 mg IVPBVania kirkland, Site: #1 left ACStart Ofirmev * Acetaminophen IV 1000 mg (NOW00:41 12/19/2020 Dose: 1 gm * IV x1, Infuse over 15 minutes)YolandaLizzieVania,----Stop01:15 12/19/2020eysaniyaLizzieVania,Given TORADOL [IVP] (KETOROLAC Toradol IVP 30 mg (NOW x1)00:32 12/19/2020 TROMETHAMINE)YolandaTanja kotharin, Dose: 30 mg IVP Site: #1 left AC Name Value Range Interpretation Code Description Data Rachel rce(s) Supporting Document(s) ID Date Data Source [id number] 12/18/2020 10:14:00 PM EDT [facility] 1 General Instructions [facility] Emergency Department [address] [place] [address] Phone #: ext- [phone] 12/18/2020 22:21 Patient: ZARIA CAR Sex: F : 1995 Age: 25ySingle left ovarian cyst.pelvic congestion.INSTRUCTIONSNo strenuous activity. Do not work for three days.Drink plenty of fluids.(Please also follow up with your primary care physician. return if worse or any new symptoms. taketylenol andmotrin for pain. please call your wool mixer and be seen in the next 2 [...] patient. ADDITIONAL INFORMATIONOvarian Cysts 2 General Instructions [facility] Emergency Department [address] [place], [place] [address] Phone #: ext- [phone] 12/18/2020 22:21 Patient: [...] pain, your healthcare provider may recommend using duvi-mle-plldytb pain medicine. If needed, your provide may [...] provider, or as advised. 3 General Instructions [facility] Emergency Department [address] [place] [address] Phone #: umj- [phone] 12/18/2020 22:21 Patient: ZARIA CAR Sex: F : 1995 Age: 25yWhen to seek medical adviceCall your healthcare provider right away if any of these occur: Pain worsens or fails to get better with home treatment Fever of 100.4F (38C) or higher (or other fever amount directed by your healthcare provider) Nausea and vomiting Weakness, dizziness, or fainting Abnormal vaginal bleeding [phone] [employer]. [address] [place] [address], [place] [address]. All rights reserved. This information is not intended as asubstitute for professional medical care. Always follow your healthcare professional's instructions. You have been given the following additional information: Ovarian Cyst No strenuous activity. 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 --22:47 12/18/20 Rosie Guerrero2:42 12/18/20. BP: 123/74. [...] Vania Guerrero. 2 Clinical Report - Nurses [facility] Emergency Department [address] [place] [address] Phone #: ext- [phone] 12/18/2020 22:21 Patient: ZARIA CAR Sex: F [...] PROGRESS NOTES 3 Clinical Report - Nurses [facility] Emergency Department [address] [place] [address] Phone #: ext- [phone] 12/18/2020 22:21 Patient: ZARIA CAR Sex: F [...] understanding. --00:32 12/19/20 Zoya Guerrero transported to [place] by wheelchair with mask and tech. --00:32 12/19/20 Vania Guerrero00:41 12/19/2020 Ofirmev * IV 1 gm --00:41 12/19/20 Vania Guerrero00:42 12/19/2020 IV Fluids IV NS via IV site #1 Discontinued: bag #1 infused. Total amount infused: 1000mL. IV patency e stablished. IV site checked: no pain, redness, or swelling. IV flushed thoroughly. --00: Zoya Guerrero returned from [place] by wheelchair with mask and tech. --00:42 12/19/20 Vania Guerrero01:28 12/19/20. BP: 118/68. HR: 70. RR: 16. O2 saturation: 99%. Pain level now 08/18. --01:12/19/20Vania Guerrero 4 Clinical Report - Nurses [facility] Emergency Department [address] [place] [address] Phone #: ext- [phone] 12/18/2020 22:21 Patient: ZARIA CAR Sex: F [...] Patient verbalized understanding. Written instructions provided in [place]. The patient was discharged by the physician. [...] rce(s) Supporting Document(s) ID Date Data Source [id number] 12/18/2020 10:14:00 PM EDT [facility] 1 Clinical Report - Physicians/Mid Levels [facility] Emergency Department [address] [place] [address] Phone #: ext- [phone] 12/18/2020 22:21 Patient: ZARIA CAR Sex: F [...] Allergies: 2 Clinical Report - Physicians/Mid Levels [facility] Emergency Department [address] [place] [address] Phone #: ext- [phone] 12/18/2020 22:21 Patient: [...] 2.5) 3 Clinical Report - Physicians/Mid Levels [facility] Emergency Department [address] [place] [address] Phone #: [phone] ztm- [phone] 12/18/2020 22:21 Patient: ZARIA CAR Sex: F [...] Male GFR Interprentation 20-49 yrs >60 mL/min Dmclpf32-42 yrs >56 mL/min Normal 60-69 yrs >49 mL/min Normal 70-79yrs>42 mL/min Normal 80 and above >35 mL/min Normal Female GFRInterpretation 20-39 yrs >60 mL/min Normal 40-49 yrs >58 mL/minNormal 50-59 yrs >51 mL/min Normal 60-69 yrs >45 mL/min Xkxjpi82-36 yrs >39 mL/min Normal 80 and above >32 mL/min NormalLactic Acid: (ABILIO: 12/18/2020 23:35) ( [facility] [place] [facility] 23:50[facility] Final results Test Result Flag Units (Reference) LACTIC ACID 1.3 MMOL/L (0.2 - 2.2)Lipase: (ABILIO: 12/18/2020 23:35) ( [facility] [place] 12/19/[facility] 00:07) Final results Test Result Flag Units (Reference) LIPASE 31 U/L (13 - 60)Urinalysis: (ABILIO: 12/18/2020 22:51) ( [facility] [place] 12/18/[facility] 23:10) Final results Test Result Flag Units (Reference) URINALYSIS URINALYSIS 4 Clinical Report - Physicians/Mid Levels [facility] Emergency Department [address] [place] [address] Phone #: ext- [phone] 12/18/2020 22:21 Patient: [...] NEGATIVE (NORMAL: NEGAT { KIT LOT # [id number] ){ KIT EXP DATE 05.10.22 ){ PROCEDURAL [...] 5.2x3.5cm. I encouraged her to f/u with gender studies professor this week and to return if worseor any new symptoms. Patient/family counseled. Disposition: Discharged. Condition: good and stable.CLINICAL IMPRESSION Single left ovarian cyst. pelvic congestion.INSTRUCTIONS 5 Clinical Report - Physicians/Mid Levels [facility] Emergency Department [address] [place] [address] Phone #: ext- [phone] 12/18/2020 22:21 Patient: ZARIA CAR Sex: F : 1995 Age: 25y No strenuous activity. Do not work for three days. Drink plenty of fluids. (Please also follow up with your primary care physician. return if worse or any new symptoms. take tylenol andmotrin for pain. please call your wool mixer and be seen in the next 2 [...] instructions verbalized by patient.(Electronically signed by Jenny Akers MD 12/19/2020 03:56) Name Value Range Interpretation Code Description Data Rachel rce(s) Supporting Document(s) ID Date Data Source [id number] 12/19/2020 12:07:00 AM EDT [facility] Name Value Range Interpretation Code Description Data Rachel rce(s) Supporting Document(s) Lipase [Enzymatic activity/volume] in Serum or Plasma 31 U/L 13 - 60 [facility] ID Date Data Source [id number] 12/19/2020 12:07:00 AM EDT [facility] Name Value Range Interpretation Code Description Data Rachel rce(s) Supporting Document(s) COMPREHENSIVE METABOLIC PANEL [facility] COMPREHENSIVE METABOLIC PANEL Sodium [Moles/volume] in Serum or Plasma 138 mEq/L 134 - 153 [facility] Potassium [Moles/volume] in Serum or Plasma 3.8 mEq/L 3.6 - 5.0 [facility] Chloride [Moles/volume] in Serum or Plasma 103 mEq/L 98 - 107 [facility] Carbon dioxide, total [Moles/volume] in Serum or Plasma 27 MEQ/L 22 - 30 [facility] Glucose [Mass/volume] in Serum or Plasma 85 MG/DL 70 - 99 [facility] BUN 10 MG/DL 7 - 21 [facility] Creatinine [Mass/volume] in Serum or Plasma 0.6 MG/DL 0.7 - 1.5 L [facility] BUN/CREAT 17 8 - 27 [facility] al Protein [Mass/volume] in Serum or Plasma 6.4 G/DL 6.3 - 8.2 [facility] Albumin [Mass/volume] in Serum or Plasma 4.1 G/DL 3.9 - 5.0 [facility] Globulin [Mass/volume] in Serum by calculation 2.3 GM/DL 2.4 - 3.2 L [facility] A/G RATIO 1.8 0.8 - 2.0 [facility] al Calcium [Mass/volume] in Serum or Plasma 9.7 MG/DL 8.4 - 10.2 [facility] Bilirubin.total [Mass/volume] in Serum or Plasma <0.7 MG/DL 0.2 - 1.3 [facility] Alkaline phosphatase [Enzymatic activity/volume] in Serum or Plasma 83 U/L 38 - 126 [facility] Aspartate aminotransferase [Enzymatic activity/volume] in Serum or Plasma 13 U/L 5 - 40 [facility] Alanine aminotransferase [Enzymatic activity/volume] in Seru m or Plasma 7 U/L 7 - 56 [facility] Anion gap 3 in Serum or Plasma 8.0 mmol/L 8.0 - 16.0 [facility] AGE 25 yrs [facility] al NON-AA GFR >60 mL/min [facility] ital AFR AMER GFR >60 mL/min [facility] sp[facility] Male GFR In terprentation 20-49 [...] >32 mL/min Normal ID Date Data Source [id number] 12/18/2020 11:50:00 PM EDT [facility] Name Value Range Interpretation Code Description Data Rachel rce(s) Supporting Document(s) Lactate [Moles/volume] in Serum or Plasma 1.3 MMOL/L 0.2 - 2.2 [facility] ID Date Data Source [id number] 12/18/2020 11:44:00 PM EDT [facility] Name Value Range Interpretation Code Description Data Rachel rce(s) Supporting Document(s) CBC W/AUTOMATED DIFF [facility] COMPLETE BLOOD COUNT Leukocytes [#/volume] in Blood by Automated count 8.3 10^3/uL 4.2 - 1 1.0 [facility] Erythrocytes [#/volume] in Blood by Automated count 3.98 10^6/uL 4. 20 - 5.40 L [facility] Hemoglobin [Mass/volume] in Blood 13.0 g/dL 12.0 - 16.0 [facility] Hematocrit [Volume Fraction] of Blood by Automated count 38.8 % 3 7.0 - 47.0 [facility] Erythrocyte mean corpuscular volume [Entitic volume] by Auto mated count 97.5 fL 81.0 - 101 [facility] Erythrocyte mean corpuscular hemoglobin [Entitic mass] by Automated count 32.7 pg 27.0 - 34.0 [facility] Erythrocyte mean corpuscular hemoglobin concentration [Mass/volume] by Automated count 33.5 g/dL 31.0 - 36.0 [facility] Erythrocyte distribution width [Ratio] by Automated count 13.2 % 11.5 - 14.5 [facility] Platelets [#/volume] in Blood by Automated count 203 10^3/uL 150 - 45 0 [facility] Platelet mean volume [Entitic volume] in Blood by Automated count 10.8 fL 7.4 - 10.4 H [facility] Neutrophils/100 leukocytes in Blood by Automated count 59.2 % 37. 0 - 80.0 [facility] Lymphocytes/100 leukocytes in Blood by Manual count 29.7 % 25.0 - 40.0 [facility] Monocytes/100 leukocytes in Blood by Automated count 8.2 % 3.0 - 8.0 H [facility] Eosinophils/100 leukocytes in Blood by Automated count 2.1 % 0.0 - 7.0 [facility] Basophils/100 leukocytes in Blood by Automated count 0.4 % 0.0 - 2.5 [facility] %IG 0.4 % 0.0 - 0.0 H [facility] %NRBC 0.0 % 0.0 - 0.0 [facility] al Neutrophils [#/volume] in Blood by Automated count 4.89 10^3/uL 2.00 - 6.90 [facility] Lymphocytes [#/volume] in Blood by Automated count 2.45 10^3/uL 0.60 - 3.40 [facility] Monocytes [#/volume] in Blood by Automated count 0.68 10^3/uL 0.00 - 0.90 [facility] Eosinophils [#/volume] in Blood by Automated count 0.17 10^3/uL 0.00 - 0.70 [facility] Basophils [#/volume] in Blood by Automated count 0.03 10^3/uL 0.00 - 0.20 [facility] #IG 0.03 10^3/uL 0.00 - 0.10 [facility]ital #NRBC 0.00 10^3/uL 0.00 - 0.00 [facility] ospital MANUAL DIFF NOT INDICATED [facility] RBC MORPH NOT INDICATED [facility] ID Date Data Source [id number] 12/18/2020 11:10:00 PM EDT [facility] Name Value Range Interpretation Code Description Data Rachel rce(s) Supporting Document(s) HCG URINE QUAL NEGATIVE NORMAL: NEGATIVE [facility] HCG URINE QL REENTER NEGATIVE NORMAL: NEGATIVE [facility] { KIT LOT # [id number] ){ KIT EXP DATE 05.10.22 ){ PROCEDURAL CONTROL VALID ) ID Date Data Source [id number] 12/18/2020 11:09:00 PM EDT [facility] Name Value Range Interpretation Code Description Data Rachel rce(s) Supporting Document(s) [facility]IS [facility] URINALYSIS SOURCE R [facility] al COLOR yellow NORMAL: Yellow [facility] CLARITY turbid NORMAL: Clear [facility] Specific gravity of Urine by Test strip 1.020 1.001 - 1.030 [facility] pH 6.5 5 - 9 [facility] Glucose [Mass/volume] in Urine by Test strip NORM NORMAL: Negat [facility] Bilirubin.total [Presence] in Urine by Test strip NEG NORMAL: Negative [facility] Ketones [Presence] in Urine by Test strip 5 NORMAL: Negative A [facility] Protein [Mass/volume] in Urine by Test strip NEG NORMAL: Negat [facility] Nitrite [Presence] in Urine by Test strip NEG NORMAL: Negative [facility] BLOOD NEG NORMAL: Negative [facility] LEUK EST 25 NORMAL: Negative [facility] Urobilinogen [Mass/volume] in Urine by Test strip NOR less nathalia n 1.0 mg/dL [facility] MICROSCOPIC See Below [facility] WBC 1 - 3 NORMAL: NONE SEEN [facility] Erythrocytes [#/volume] in Urine by Test strip 0 - 1 NORMAL: NON E SEEN [facility] EPITHELIAL MANY NORMAL: NONE SEEN A [facility] Bacteria [Presence] in Urine sediment by Light microscopy 1+ SMALL NORMAL: NONE SEEN [facility] Mucus [Presence] in Urine sediment by Light microscopy 1+ NOR MAL: NONE SEEN [facility] Amorphous sediment [Presence] in Urine sediment by Light dany roscopy 1+ NORMAL: NONE SEEN [facility] ID Date Data Source [id number] 12/02/2020 03:34:00 PM EDT [facility] 1 OrderSheet [facility] Emergency Department [address] [place] [address] Phone #: ext- [phone] 12/02/2020 15:29 Patient: ZARIA CAR Sex: F : 1995 Age: 25yWEIGHT:74.8 kg (S) HEIGHT:67 inches (S) BMI:25.9ALLERGIES: No Known Drug AllergyCHIEF COMPLAINT: Rt, footDIAGNOSIS: AbrasionLAB ORDERSOrder Description Priority Entered Acknowledged InitialedDIAGNOSTIC STUDY ORDERSOrder Description Priority Entered Acknowledged InitialedMEDICATION/IV/DRIP/FLUID ORDERSOrder Description Priority Entered Acknowledged InitialedTdap IM 0.5 mL 17:01 12/02/2020 17:08 Kristopher Robledo RN; Meena RN Per protocol; Bridger Bojorquez-CBacitracin Zinc 17:47 12/02/2020 18:09 TerryTopical 1 Bridger Robledo RNapplication P.A.-C;Tylenol 1 g PO X1 17:47 12/02/2020 18:09 Terrydose: 1000 mg Bridger Robledo RN(NOW x1) P.A.-C;Keflex PO 500 mg 18:12 12/02/2020 18:21 Kristopher Robledo RN P.A.- C;GENERAL ORDERSOrder Description Priority Entered Acknowledged InitialedIrrigate Wounds 17:47 12/02/2020 17:48 Kristopher(NS) (4X4's) Bridger Robledo RN P.A.-C;Dress Wounds 17:47 12/02/2020 17:48 Kristopher Robledo RN P.A.-C;[Electronically signed by Kristopher Robledo RN (18:51 12/02/2020)] 2 OrderSheet [facility] Emergency Department [address] [place] [address] Phone #: ext- [phone] 12/02/2020 15:29 Patient: ZARIA CAR Sex: F : 1995 Age: 25y[Electronically signed by Bridger Serra P.A.-C (20:16 12/02/2020)][Electronically locked by Kristopher Robledo RN (18:51 12/02/2020)] Name Value Range Interpretation Code Description Data Rachel rce(s) Supporting Document(s) ID Date Data Source [id number] 12/02/2020 03:34:00 PM EDT [facility] 1 Medication Reconciliation Report [facility] Emergency Department [address] [place] [address] Phone #: ovn- [phone] 12/02/2020 15:29 [id number] Sex: F : 1995 Age: 25yWeight: 74.8 [...] Dispense 21 capsule.Refills: 0. Substitution permitted.[place]armacy - [facility] [place] [address] ; [place] [address]. .gabapentin 100 mg capsule Take 1 capsule three times a day for 3 days -- Dispense 9 capsule. Refills:0. Substitution permitted.Pharmacy - [facility] [place] [address] ; [place] [address]. . -- Bridger Serra P.A.-C Name Value Range Interpretation Code Description Data Rachel rce(s) Supporting Document(s) ID Date Data Source [id number] 12/02/2020 03:34:00 PM EDT [facility] 1 Medication Administration Record [facility] Emergency Department [address] [place] [address] Phone #: ext- [phone] 12/02/2020 15:29 Patient: ZARIA CAR Sex: F : 1995 Age: 25yWeight: 74.8 kgHeight/Length: 67 inBMI: 25.9ALLERGIES: No Known Drug Allergy Date/Time Medication Administered Medication OrderedGiven TDAP [IM] Tdap IM 0.5 mL17:08 12/02/2020 Dose: 0.5 mL Johann Zamorano BACITRACIN ZINC [TOPICAL] Bacitracin Zinc Topical 118:04 12/02/2020 Dose: 1 application Ointment Topical applicationJohann Crzu TYLENOL [PO] (APAP) Tylenol 1 g PO X1 dose: 1000 mg17:54 12/02/2020 Dose: 1000 mg Tablets PO (NOW x1)Te Johann Kohler KEFLEX [PO] (CEPHALEXIN Keflex PO 500 mg18:21 12/02/2020 MONOHYDRATE)Kristopher Robledo RN Dose: 500 mg Capsules PO Name Value Range Interpretation Code Description Data Rachel rce(s) Supporting Document(s) ID Date Data Source [id number] 12/02/2020 03:34:00 PM EDT [facility] 1 General Instructions [facility] Emergency Department [address] [place] [address] Phone #: ext- [phone] 12/02/2020 15:29 Patient: [...] -- Dispense 21 capsule.Refills: 0. Substitution permitted.[facility] [place] [address] ; [place] [address]. .gabapentin 100 mg capsu le Take 1 capsule three times a day for 3 days -- Dispense 9 capsule. Refills:0. Substitution permitted.[facility] [place] [address] ; [place] [address]. .Follow-up:Follow up with your healthcare provider in about two days if not better. Call for an appointment.Understanding of the discharge instructions verbalized by patient. ADDITIONAL INFORMATIONAbrasions 2 General Instructions [facility] Emergency Department [address] [place] [address] Phone #: ext- [phone] 12/02/2020 15:29 Patient: ZARIA CAR Sex: F [...] drainage from the wound 3 General Instructions [facility] Emergency Department [address] [place] [address] Phone #: ext- [phone] 12/02/2020 15:29 Patient: ZARIA CAR Gopi Sex: F : 1995 Age: 25y Bleeding from the wound that does not stop after a few minutes of steady, firm pressure Decreased ability to move any body part near the wound [employer]. [address] [place] [address]. All rights reserved. This information is not [...] Red streaks surround the wound area [employer]. [address] [place] [address]. All rights reserved. This information is not intended as asubstitute for professional medical care. Always follow your healthcare professional's instructions. You have been given the following additional information: Abrasions 4 General Instructions [facility] Emergency Department [address] [place] [address] Phone #: ext- [phone] 12/02/2020 15:29 Patient: ZARIA CAR Sex: F : 1995 Age: 25yDressing ChangeYou may walk and bear weight as tolerated. Do not work for five days (To facilitate recovery).(Electronically signed by Bridger Serra P.A.-C 12/02/2020 20:16) Name Value Range Interpretation Code Description Data Rachel rce(s) Supporting Document(s) ID Date Data Source [id number] 12/02/2020 03:34:00 PM EDT [facility] 1 Clinical Report - Nurses [facility] Emergency Department [address] [place] [address] Phone #: ext- [phone] 12/02/2020 15:29 Patient: ZARIA CAR Sex: F : 1995 Age: 25yTRIAGEArrived by private vehicle. Historian: patient.Acuity: LEVEL 4.Chief Complaint: INJURY TO THE RIGHT FOOT.Alert. No acute distress.Occurred 03:33 12/02/2020. The patient sustained a laceration (razor). ( PT reports this morning [id number] am she stepped out of the shower unto a blake razor blade. She reports a moderate amount ofbleeding between her great and 2nd toe on her right foot. She is unsure of her last tetanus shot.).Treatment WELDER/FABRICATOR:None.SEPSIS SCREEN: SIRS SCREEN NEGATIVE. SEPSIS SCREEN NEGATIVE. [...] SURGERIES:Cholecystectomy..Exploratory laparotomy. 2 Clinical Report - Nurses [facility] Emergency Department [address] [place] [address] Phone #: ext- [phone] 12/02/2020 15:29 Patient: ZARIA CAR Sex: F [...] on patient. --15:39 12/02/20 Sharron Jimenez R.N.PHYSICAL [id number]:59 12/02/20. Ambulatory to room.GENERAL / NEURO / [...] Robledo RN 3 Clinical Report - Nurses [facility] Emergency Department [address] [place] [address] Phone #: ext- [phone] 12/02/2020 15:29 Patient: [facility]ARIA CAR [id number] Sex: F : 1995 Age: 25y 16:52 12/02/20. BP: 130/82. MAP: 98. HR: 75. RR: 16. O2 saturation: 100%. Temp: 98.7 F (oral). Pain level now: 10/18. --17:00 12/02/20 Kristopher Robledo RN 17:08 12/02/2020 TDAP IM 0.5 mL given(Lot#: [id number], expiration date: 08/14/2022, Electric [employer] Installer: [employer]). Given in the left deltoid. Allergies verified [...] Robledo RN Wound cleansed with sterile saline (0495). Right foot: applied dressing consisting of 4x4 gauze and telfa pad, following the application of antibiotic ointment (bacitracin). Secured with rosy bandage. (2776). --18:10 12/02/20 Kristopher Robledo RN 18:21 12/02/2020 Keflex (Cephalexin Monohydrate) PO Capsules 500 mg given. Allergies verified and confirmed 5 rights. Information reviewed with patient. --18:21 12/02/20 Kristopher Robledo RN.DISPOSITION / DISCHARGE 18:18 12/02/20. BP: 129/84. HR: 81. RR: 16. O2 saturation: 100%. Temp: 98.7 F. Pain level now 07/18. --18:18 12/02/20 Shaylee Le RN 18:51 12/02/20. Departure time: 18:12/02/2020. Condition at departure: improved. No learning barriers present. Discharge instructions provided and reviewed with the patient. Reviewed medication(s) side effects, precautions, dosing and course information. Prescription(s) sent electronically to pharmacy. Reviewed wound care instructions. Reviewed referrals. Provided to follow-up provider. Patient verbalized understanding. Written instructions provided in [place]. The patient was discharged by the physician assistant hall director. She was discharged home. She left ambulatory and via private vehicle. Patient driving. --18:51 12/02/20 Kristopher Robledo RN.Locked/Released at 12/02/2020 18:51 by Kristopher Robledo RN Name Value Range Interpretation Code Description Data Rachel rce(s) Supporting Document(s) ID Date Data Source [id number] 12/02/2020 03:34:00 PM EDT [facility] 1 Clinical Report - Physicians/Mid Levels [facility] Emergency Department [address] [place] [address] Phone #: ext [phone] 12/02/2020 15:29 Patient: ZARIA CAR Sex: F [...] complaints 2 Clinical Report - Physicians/Mid Levels [facility] Emergency Department [address] [place] [address] Phone #: ext- [phone] 12/02/2020 15:29 Patient: ZARIA CAR Sex: F : 1995 Age: 25y or [...] and pt lying peacefully in bed in NAD. Patient stable. Denies any newissues, concerns, or complaints. VSS, NAD, AOx3, interacting well and appropriately, no use of accessory muscle, able to speak full sentences, stable, non-toxic looking . Pt sustained a abrasion injury to plantar aspect of the R foot. Unsure of tetanus status. PE demos NV intact b/l UE and LE. Wound [...] restrictions. 3 Clinical Report - Physicians/Mid Levels [facility] Emergency Department [address] [place] [address] Phone #: ext- [phone] 12/02/2020 15:29 Patient: [...] capsule. Refills: 0. Substitution permitted. Pharmacy - [facility] [place] [address] ; [place] [address]. . gabapentin 100 mg capsule Take 1 capsule three times a day for 3 days -- Dispense 9 capsule. Refills: 0. Substitution permitted. Pharmacy - [facility] [place] [address] ; [place] [address]. . Follow-up: Follow up with your healthcare provider in about two days if not better. Call for an appointment. Understanding of the discharge instructions verbalized by patient.(Electronically signed by Bridgre Serra P.A.-C 12/02/2020 20:16) Name Value Range Interpretation Code Description Data Rachel rce(s) Supporting Document(s) ID Date Data Source [id number] 10/31/2020 01:46:00 PM EDT [facility] Patient: ZARIA CAR Observatio n Report - Physicians/Mid Levels Hospitals.VisitID: [id number] [place] [address] [phone], FRegistration Date/Time: 10/17/2020 22:30 Weight:72.5 kg. Height/Length:66 [...] 10/18/2020 00:46) Addenda for ZARIA CAR VisitID: [id number] Date: 10/17/2020 10/31/2020 13:31Lab results reviewed. Communicated information to patient. Script for Flagyl 500mg po BID for 5 days called to [facility] in [place]. Pt aware that script called in. (Electronically signed by Maryuri Dasilva R.N. - 10/31/2020 13:31) Name Value Range Interpretation Code Description Data Rachel rce(s) Supporting Document(s) ID Date Data Source [id number] 10/18/2020 07:17:00 AM EDT [facility] [...] Name Value Range Interpretation Code Description Data [facility] rce(s) Supporting Document(s) ID Date Data Source [id number] 10/18/2020 03:55:00 AM EDT [facility] Patient: ZARIA ACR Report - Physicians/Mid Levels Hospitals.VisitID: [id number] [place] [address] [phone], FRegistration Date/Time: 10/17/2020 22:30 Weight:72.5 kg. Height/Length:66 [...] rce(s) Supporting Document(s) ID Date Data Source [id number] 10/20/2020 06:10:00 AM EDT [facility] Name Value Range Interpretation Code Description Data Rachel rce(s) Supporting Document(s) CHLAMYDIA TRACHOMATIS, JUAN Negative Negative [facility] NEISSERIA GONORRHOEAE, JUAN Negative Negative [facility] Performed at: RN - [facility] [address] [place], [place] [id number] Director: Magalie Foster MD, Phone: [phone] ID Date Data Source [id number] 10/19/2020 04:10:00 PM EDT [facility] Name Value Range Interpretation Code Description Data Rachel rce(s) Supporting Document(s) MAREN SPECIES Negative Negative [facility] GARDNERELLA VAGINALIS Positive Negative [facility] TRICHOMONAS VAGINALIS Negative Negative [facility] spital Performed at: RN - [facility] [address] [place], [place] [id number] Director: Magalie Foster MD, Phone: [phone] ID Date Data Source [id number] 10/19/2020 04:05:00 PM EDT [facility] Name Value Range Interpretation Code Description Data Rachel rce(s) Supporting Document(s) Maren species Negative Negative [facility] Gardnerella vaginalis Positive Negative Abnormal ( applies to non-numeric results) [facility] Trichomonas vaginalis Negative Negative [facility] ID Date Data Source [id number] 10/20/2020 06:05:00 AM EDT [facility] Name Value Range Interpretation Code Description Data Rachel rce(s) Supporting Document(s) Chlamydia/GC [facility]ification [facility] TESTS RESULT FLAG UNI TS REF RANGE LAB C trachomatis, JUAN Negative (Negative) 01N gonorrhoeae, JUAN Negative (Negative) 01 FLAG LEGEND: L-Low Normal,H-High Normal,LL-Alert Low,HH-Alert High <-Panic Low,>-Panic High,A-Abnormal,AA-Critical Abnormal Performed at:01 RN [facility] [address] [id number] Magalie Foster MD, ID Date Data Source [id number] 10/17/2020 11:51:[address] T[facility] [id number] Name Value Range Interpretation Code Description Data Rachel rce(s) Supporting Document(s) GLUCOSE 85 mg/dL 74-106 [facility] BLOOD UREA NITROGEN 8 mg/dL 7-18 [facility] CREATININE 0.70 mg/dL 0.6-1.0 [facility] SODIUM 140 mmol/L 136-145 [facility] POTASSIUM 3.8 mmol/L 3.5-5.1 [facility] CHLORIDE 102 mmol/L 98-107 [facility] CO2 31 mmol/L 21-32 [facility] CALCIUM 9.1 mg/dL 8.5-10.1 [facility] ANION GAP 7.0 mmol/L 5-12 [facility] GLOMERULAR FILTRATION RATE >90 mL/min [facility] GFR IS CALCULATED IN mL/min/1.73m2 JENNY L FUNCTION: >90MILDLY DECREASED: 60-89MILDY TO MODERATELY DECREASED: 45-59 MODERATELY TO SEVERELY DECREASED: 30-44SEVERELY DECREASED: 15-29RENAL FAILURE: <15 AST 80 U/L 15-37 H [facility] ALT 70 U/L 12-78 [facility] ALKALINE PHOSPHATASE 80 U/L 46-116 [facility] pital TOTAL BILIRUBIN 0.2 mg/dL 0.2-1.0 [facility] TOTAL PROTEIN 7.9 g/dl 6.4-8.2 [facility] ALBUMIN 4.1 gm/dL 3.4-5.0 [facility] ID Date Data Source [id number] 10/17/2020 11:51:00 PM EDT [facility] l TSYSORDER [id number] Name Value Range Interpretation Code Description Data Rachel rce(s) Supporting Document(s) MAGNESIUM 1.8 mg/dL 1.8-2.4 [facility] ID Date Data Source [id number] 10/17/2020 11:51:00 PM EDT [facility] l TSYSORDER [id number] Name Value Range Interpretation Code Description Data Rachel rce(s) Supporting Document(s) LIPASE 108 U/L 73-393 [facility] ID Date Data Source [id number] 10/17/2020 11:49:00 PM EDT [facility] l TSYSORDER [id number] Name Value Range Interpretation Code Description Data Rachel rce(s) Supporting Document(s) PARTIAL THROMBOPLASTIN TIME 26.3 SECONDS 21.2-27.3 [facility] ID Date Data Source [id number] 10/17/2020 11:49:00 PM EDT [facility] l TSYSORDER [id number] Name Value Range Interpretation Code Description Data Rachel rce(s) Supporting Document(s) PROTHROMBIN TIME (PATIENT) 9.6 SECONDS 9.1-11.6 [facility] INR 0.92 0.87-1.06 [facility] ID Date Data Source [id number] 10/17/2020 11:32:00 PM EDT [facility] TSYSORDER [id number] Name Value Range Interpretation Code Description Data Rachel rce(s) Supporting Document(s) WHITE BLOOD COUNT 8.1 K/mm3 4.0-10.0 [facility] al RED BLOOD COUNT 4.33 M/mm3 4.00-5.50 [facility] HEMOGLOBIN 13.8 gm/dL 12.0-16.0 [facility] HEMATOCRIT 42.4 % 36.0-48.8 [facility] MEAN CELL VOLUME 97.9 fl 80-96 H [facility] MEAN CORPUSCULAR HEMOGLOBIN 31.9 pg 27.0-31.0 H [facility] MEAN CORPUSCULAR HGB CONC 32.5 g/dl 32.0-36.0 [facility] RED CELL DISTRIBUTION WIDTH 12.8 % 10.0-14.5 [facility] PLATELET COUNT 228 K/mm3 172-450 [facility] MEAN PLATELET VOLUME 10.0 fl 9.0-13.0 [facility] pital GRAN % 52.8 % 50-80.0 [facility] IG% 0.0 % 0.0-0.2 [facility] LYMPH % 39.3 % 25.0-50.0 [facility] MONO % 6.5 % 2.0-10.0 [facility] EOS % 1.0 % 0-5.0 [facility] BASO % 0.4 % 0.0-2.0 [facility] GRAN # 4.3 K/mm3 2.0-8.00 [facility] IG# 0.0 K/mm3 0.0-0.2 [facility] LYMPH # 3.2 K/mm3 1.0-5.0 [facility] MONO # 0.5 K/mm3 0.10-1.20 [facility] EOS # 0.1 K/mm3 0.0-0.5 [facility] BASO # 0.0 K/mm3 0.0-0.2 [facility] ID Date Data Source [id number] 10/17/2020 11:28:00 PM EDT [facility] spital TSYSORDER [id number] Name Value Range Interpretation Code Description Data Rachel rce(s) Supporting Document(s) URINE RBC 5-10 /hpf 0-3 H [facility] URINE EPITHELIAL CELLS 1+ /hpf 0 [facility] ospital ID Date Data Source [id number] 10/17/2020 11:26:[address] [facility] ital TSYSORDER [id number] Name Value Range Interpretation Code Description Data Rachel rce(s) Supporting Document(s) URINE COLOR. [facility] URINE APPEARANCE CLEAR [facility] l URINE GLUCOSE (UA) NEGATIVE mg/dL NEGATIVE [facility] URINE BILIRUBIN NEGATIVE NEGATIVE [facility] URINE KETONE NEGATIVE mg/dL [facility]GATIVE [facility] SPECIFIC GRAVITY,URINE 1.020 1.005-1.030 [facility] URINE BLOOD 2+(MODERATE) NEGATIVE H [facility] PH,URINE 6.5 5.0-9.0 [facility] URINE PROTEIN NEGATIVE mg/dL NEGATIVE [facility] URINE UROBILINOGEN NORMAL(0.2-1) mg/dL 0-[address] [facility] URINE NITRATE NEGATIVE NEGATIVE [facility] URINE LEUKOCYTE ESTERASE NEGATIVE NEGATIVE [facility] ID Date Data Source [id number] 10/17/2020 11:15:00 PM EDT [facility] l TSYSORDER [id number] Name Value Range Interpretation Code Description Data Rachel rce(s) Supporting Document(s) HCG URINE NEGATIVE NEGATIVE [facility] ID Date Data Source [id number] 10/10/2020 03:35:00 PM EDT [facility] Name Value Range Interpretation Code Description Data Rachel rce(s) Supporting Document(s) ABO group [Type] in Blood A [facility] Rh [Type] in Blood POSITIVE [facility] AB SCREEN NEGATIVE NORMAL: NEGATIVE [facility] { ABO/RH REENTER A POSITIVE{ AB SCREEN RE-ENTER NEGATIVE ID Date Data Source [id number] 10/10/2020 02:44:00 PM EDT [facility] Name Value Range Interpretation Code Description Data Rachel rce(s) Supporting Document(s) HCG SERUM QUAL NEGATIVE NORMAL: NEGATIVE [facility] HCG SERUM QL REENTER NEGATIVE NORMAL: NEGATIVE [facility] { KIT LOT # [id number] ){ KIT EXP DATE 03.10.22 ){ PROCEDURAL CONTROL VALID ) ID Date Data Source [id number] 10/10/2020 10:59:00 AM EDT [facility] Name Value Range Interpretation Code Description Data Rachel rce(s) Supporting Document(s) CBC NO DIFF [facility] ital COMPLETE BLOOD COUNT Leukocytes [#/volume] in Blood by Automated count 6.9 10^3/uL 4.2 - 1 1.0 [facility] Erythrocytes [#/volume] in Blood by Automated count 4.31 10^6/uL 4. 20 - 5.40 [facility] Hemoglobin [Mass/volume] in Blood 13.9 g/dL 12.0 - 16.0 [facility] Hematocrit [Volume Fraction] of Blood by Automated count 42.1 % 3 7.0 - 47.0 [facility] Erythrocyte mean corpuscular volume [Entitic volume] by Auto mated count 97.7 fL 81.0 - 101 [facility] Erythrocyte mean corpuscular hemoglobin [Entitic mass] by Automated count 32.3 pg 27.0 - 34.0 [facility] Erythrocyte mean corpuscular hemoglobin concentration [Mass/volume] by Automated count 33.0 g/dL 31.0 - 36.0 [facility] Erythrocyte distribution width [Ratio] by Automated count 12.8 % 11.5 - 14.5 [facility] Platelets [#/volume] in Blood by Automated count 249 10^3/uL 150 - 45 0 [facility] Platelet mean volume [Entitic volume] in Blood by Automated count 9.9 fL 7.4 - 10.4 [facility] ID Date Data Source [id number] 10/10/2020 10:22:00 AM EDT [facility] Name Value Range Interpretation Code Description Data Rachel rce(s) Supporting Document(s) SARS coronavirus 2 RNA Not Detected [facility] [place] This lab was ordered by [facility] Gonzalez rodriguez and reported by [facility]. ID Date Data Source [id number] 10/12/2020 02:07:00 PM EDT [facility] Name Value Range Interpretation Code Description Data Rachel rce(s) Supporting Document(s) SARS-CoV-2, JUAN Not Detected Not Detected [facility] This nucleic acid amplification test was developed and its performancecharacteristics determined by [facility]. Nucleic acidamplification tests include RT-PCR and [...] assay. SARS-CoV-2, JUAN 2 DAY TAT Performed [facility] ID Date Data Source [id number] 09/18/2020 02:15:00 PM EDT [facility] Name Value Range Interpretation Code Description Data Rachel rce(s) Supporting Document(s) COVID-19 RT-PCR NASAL SWAB Not Detected Not Detected [facility] A not detected (negative) test result fo [...] developed and its performance characteristics determined by [facility] and verified at [facility]. It has not been cleared or approved by the U.S. Food and Drug Administration for diagnostic use. This test has been authorized by FDA under an EUA for use by authorized laboratories. Results should be used in conjunction with clinical findings, and should not form the sole basis for a diagnosis or treatment decision. Methods: SARS-CoV-2 Multiplex RT-PCR Assay ID Date Data Source [id number] 09/15/2020 04:00:00 PM EDT [facility] Name Value Range Interpretation Code Description Data Rachel rce(s) Supporting Document(s) SARS-CoV-2 (COVID-19) N gene [Presence] in Respiratory specimen by JUAN with probe detection NEGATIVE [facility] lab [facility] and reported by [facility]. ID Date Data Source [id number] 09/15/2020 12:00:00 AM EDT [facility] Name Value Range Interpretation Code Description Data Rachel rce(s) Supporting Document(s) Carestart Rapid COVID Antigen Test Negative [facility] This lab was reported by Chriss Zamudio [place]. ID Date Data Source [id number] 08/28/2020 02:04:00 AM EDT [facility] [address] [place] [address] ---------NAME--------- NUMBER SEX AGE ADMIT DISC. XRAY# F/C TYPE JOCELINE GARCIA N [id number] F 25 08/27/20 08/28/20 [id number] E/R DATE OF : 1995 M/R# [id number] #: [id number] TR-06 LOCATION: EMERGENCY DEPT TRANSCRIBED: 08/28/20 2:[address] ABD //T// PELVIS W/ IV ONLY [id number] COMPLETED:08/28/20 2:48 RLB 9170 Reason(s): abdominal pain, LUQ, RLQ, Diarrhea PHYSICIAN: YUE WILKINS == R A D I O L O G Y R E P O R T PATIENT HISTORY:Abdominal pain, LUQ, RLQ, Diarrhea. Accumulated DLP-675.9 mGy*cm, EstimatedDLP-665.6 mGy*cm. Neg BEta. [id number], 75mL, [id number], 09/30. Labs verified andscanned.Time Out performed. Correct patient with 2 identifiers, type and amount ofcontrast used, correct body part and side all verified prior to examination.Images sent to[facility] for review. - RLB / CORONAL (DICOM Hx)EXAM: CT Abdomen and Pelvis with IV contrastCLINICAL HISTORY:Abdominal pain, LUQ, RLQ, Diarrhea. Accumulated DLP-675.9mGy*cm, Estimated DLP-665.6 mGy*cm. Neg BEta. [id number], 75mL, [id number], 09/30. Labsverified and scanned. Time Out performed. Correct patient with 2 identifiers,type and amount of contrast used, correct body part and side all verified priorto examination. [facility]. - RLBTECHNIQUE: Axial computed tomography images of the abdomen and pelvis withintravenous contrast. / All CT scans at this facility use dose modulation,iterative reconstruction, and/or weight-based dosing when appropriate to reduceradiation dose to as low as reasonably achievable.CONTRAST:with intravenous contrast. With; MAV107, 75MlCOMPARISON:None provided.FINDINGS:LUNG BASES: The lung bases appear [...] rce(s) Supporting Document(s) ID Date Data Source [id number] 08/28/2020 10:45:00 AM EDT [facility] Name Value Range Interpretation Code Description Data Rachel rce(s) Supporting Document(s) COVID-19 RT-PCR FLOAT BUILDER SWAB TNP [facility] Sample tube arrived without Viral Transp ort Media, unable to perform test. No evidence of sample leakage. Sample tube arrived without Viral Transport Media, unable to perform test. No evidence of sample leakage. ID Date Data Source [id number] 08/28/2020 10:45:00 AM EDT [facility] Name Value Range Interpretation Code Description Data Rachel rce(s) Supporting Document(s) Non-Conformance #NOMEDIA [facility] Sample tube arrived without Viral Transp ort Media, unable to perform test. No evidence of sample leakage. ID Date Data Source [id number] 08/28/2020 10:45:00 AM EDT [facility] Name Value Range Interpretation Code Description Data Rachel rce(s) Supporting Document(s) REJECTED SPECIMEN #NOMEDIA [facility] Sample tube arrived without Viral Transp ort Media, unable to perform test. No evidence of sample leakage. ID Date Data Source [id number] 08/27/2020 10:54:00 PM EDT [facility] 1 OrderSheet [facility] Emergency Department [address] [place] [address] Phone #: ext- [phone] 08/27/2020 22:53 Patient: ZARIA CAR Sex: F : 1995 Age: 25yWEIGHT:74.8 kg (S) HEIGHT:67 inches (S) BMI:25.9ALLERGIES: No Known Drug AllergyCHIEF COMPLAINT: abdominal painDIAGNOSIS: Viral disease, DiarrheaLAB ORDERSOrder Description Priority Entered Acknowledged InitialedCB w Diff STAT 23:08/27/2020 23:20 Yue Wei Riccardo Laura R.N. M.D.;CMP STAT 23:08/27/2020 23:20 Yue Wei Riccardo Laura R.N. M.D.;Lipase STAT 23:08/27/2020 23:20 Yue Wei Riccardo Laura R.N. M.D.;Urinalysis (Clean STAT 23:08/27/2020 23:20 Sanjuana,Catch) Tj Turner R.N., M.D.;Beta-HCG, Qual STAT 23:08/27/2020 23:20 Sanjuana,Serum Tj Turner R.N., M.D.;Lactic Acid STAT 23:08/27/2020 23:20 Braxtono, Tj Turner R.N., M.D.;DIAGNOSTIC STUDY ORDERSOrder Description Priority Entered Acknowledged InitialedCT Abd PEL W/ IV STAT 00:21 08/28/2020 00:21 Bisha,Contrast Only Tj Turner(Oxygen?(No)) Dante.DAzul;(IV?(Yes)) Reason for Study: abdominal pain, LUQ, RLQ, DiarrheaMEDICATION/IV/DRIP/FLUID ORDERSOrder Description Priority Entered Acknowledged InitialedNS IV 1000 mL 23:08/27/2020 23:31 Meljulio cesar,Bolus: : Bolus 1000 Julianerin, Tj Metza R.N. 2 OrderSheet [facility] Emergency Department [address] [place] [address] Phone #: ext- [phone] 08/27/2020 22:53 Patient: ZARIA CAR Sex: F : 1995 Age: 25ymL (X1) M.D.;Protonix IV Push 40 23:08/27/2020 23:31 Melaragno,mg (in 10 mL NS, Yue, Tj Sarah R.N.administer over at M.D.;least 2 minutes,NOW x1)Ofirmev IV 1000 mg 23:09 08/27/2020 23:31 Sanjuana(NOW x1, Infuse Tj Turner R.NAzulover 15 minutes) Tejas;NS IV 1000 mL 00:21 08/28/2020 00:29 Nilsa,Bolus: : Bolus 1000 Tj TurnermL (X1) Tejas;Toradol 15 mg IVP 00:58 08/28/2020 01:02 Sanjuana,X1 dose: 15 mg Tj Turner R.NAzul(NOW x1) [...] rce(s) Supporting Document(s) ID Date Data Source [id number] 08/27/2020 10:54:00 PM EDT [facility] 1 Medication Reconciliation Report [facility] Emergency Department [address] [place] [address] Phone #: ext- [phone] 08/27/2020 22:53 Patient: [...] rce(s) Supporting Document(s) ID Date Data Source [id number] 08/27/2020 10:54:00 PM EDT [facility] 1 Medication Administration Record [facility] Emergency Department [address] [place] [address] Phone #: ext- [phone] 08/27/2020 22:53 Patient: ZARIA CAR Sex: F : 1995 Age: 25yWeight: 74.8 kgHeight/Length: 67 inBMI: 25.9ALLERGIES: No Known Drug Allergy Date/Time Medication Administered Medication OrderedStart SODIUM CHLORIDE [IV] NS IV 1000 mL Bolus: : Bolus 687710:08/27/2020 Dose: IV Fluids mL (X1)Sarah Wei R.N. Rate: 1000 mL/hr over 1 hour(s)---- Dispensed: [...] NS IV 1000 mL Bolus: : Bolus 077423:29 08/28/2020 Dose: IV Fluids mL (X1)Eros Ash, [...] rce(s) Supporting Document(s) ID Date Data Source [id number] 08/27/2020 10:54:00 PM EDT [facility] 1 General Instructions [facility] Emergency Department [address] [place] [address] Phone #: ext- [phone] 08/27/2020 22:53 Patient: [...] ADDITIONAL INFORMATIONViral Diarrhea (Adult) 2 General Instructions [facility] Emergency Department [address] [place] [address] Phone #: ext- [phone] 08/27/2020 22:53 Patient: ZARIA CAR Sex: F [...] replace what is lost. 3 General Instructions [facility] Emergency Department [address] [place] [address] Phone #: ext- [phone] 08/27/2020 22:53 ---- [...] hands with soap and water or alcohol-based crossbow maker to prevent the spread of infection. Wash [...] Keep uncooked meats away from cooked and kpidl-of-pnh foods.Medicines: You may use acetaminophen or NSAIDS [...] cramping, and pain worse. 4 General Instructions [facility] Emergency Department [address] [place] [address] Phone #: ext- [phone] 08/27/2020 22:53 Patient: ZARIA CAR Sex: F [...] to seek medical advice 5 General Instructions [facility] Emergency Department [address] [place] [address] Phone #: ext- [phone] 08/27/2020 22:53 Patient: ZARIA CAR Sex: F [...] consciousness Rapid heart rate Seizure Stiff neck [phone] [employer]. [address] [place] [address], [place] [address]. All rights reserved. This information is not [...] nausea, vomiting, cramping, and 6 General Instructions [facility] Emergency Department [address] [place] [address] Phone #: ext- [phone] 08/27/2020 22:53 Patient: [...] the smoke from others. You may use tsvz-zis-cvuftot acetaminophen or ibuprofen for fever, muscle aching, [...] body and be dangerous to your health. Bnyb-rnv-vefuaeb remedies won't shorten the length of the illness but may be helpful for symptoms such as cough, sore throat, nasal and sinus congestion, or diarrhea. Don't use decongestants if you have high blood pressure.Follow-up careFollow up with your healthcare provider if you do not improve over the next week.Call [phone] if any of the following occur: Convulsion Feeling weak, dizzy, or like you are going to faint 7 General Instructions [facility] Emergency Department [address] [place] [address] Phone #: ext- [phone] 08/27/2020 22:53 [id number] Sex: F : 1995 Age: 25y Chest [...] or as directed by your healthcare provider [phone] [employer]. [address] [place] [address]. All rights reserved. This information is not intended as asubstitute for professional medical care. Always follow your healthcare professional's instructions. You have been given the following additional information: Diarrhea, Viral (Adult) Viral Syndrome (Adult)(Electronically signed by Tj Turner M.D. 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 --23:04 08/27/20 Sarah Wei R.N.22:58 08/27/20. BP: 133/79. MAP : 97. HR: 108. RR: 16. O2 saturation: 100% on room air. Temp: 97.5 F.Pain level now: 10. --23:04 08/27/20 Sarah Wei R.N.Weight: 74.8 kg stated. Height/Length: 67 inches Per Patient. BMI: 25.9. --23:03 08/27/20 Sarah Wei R.N.MedicationsNone. --23:02 08/27/20 Sarah Wei R.N.AllergiesNo Known Drug Allergy. --23:02 08/27/20 Sarah Wei R.N.PROBLEMS:Ectopic .Abdominal Pain.Ovarian Cyst.Migraine Headache. --23:02 08/27/20 Sarah Wei R.N.ADDITIONAL SURGERIES:Cholecystectomy.C- Section.Salpingectomy. --23:08/27/20 Sarah Wei R.N.History 2 Clinical Report - Nurses [facility] Emergency Department [address] [place] [address] Phone #: ext- [phone] 08/27/2020 22:53 Patient: [...] assessment completed. No skin integrity risk identified. --23:08/27/20 Sarah Wei R.N. Interventions Identification band on patient. To treatment room. --23:04 08/27/20 Sarah Wei R.N.PHYSICAL ASSESSMENTAmbulatory to room. Patient [...] given. Two 3 Clinical Report - Nurses [facility] Emergency Department [address] [place] [address] Phone #: ext- [phone] 08/27/2020 22:53 Patient: ZARIA CAR Sex: F : 1995 Age: 25ypatient identifiers checked. Call light placed in reach. Side rails up x 2. Bed placed in lowest position.Brakes of bed on. --23:08/27/20 Sarah Wei R.N.23:30 08/27/2020 Site #1 started via IV in the left antecubital space with an 20g angiocath, with aseptictechnique; one attempt. Blood drawn: rainbow set. Sent to the lab. Saline lock flushed with 10 mL saline.--23:08/27/20 Sarah Wei R.N.23:08/27/2020 Started bag #1 1000 [...] patient is calm and resting quietly. --00:18 08/28/20 Sarah Wei R.N.00:17 08/28/20. BP: 130/70. MAP: [...] Wei R.N. 4 Clinical Report - Nurses [facility] Emergency Department [address] [place] [address] Phone #: ext- [phone] 08/27/2020 22:53 [id number] Sex: F : 1995 Age: 25y 01:08/28/20. [...] Patient verbalized understanding. Written instructions provided in [place]. No medication instructions or treatment instructions. The patient was discharged by the physician. She was discharged home. She left ambulatory and via private vehicle. Patient driving. --02:23 08/28/20 Eros Ash 02:22 08/28/20. BP: 112/68 taken on the left arm, via an automated monitor, while lying. MAP: 82. HR: 80 (regular, normal rate and strong). RR: 16 (regular, unlabored and normal). O2 saturation: 100% on room air. Temp: 98.4 F (oral). Pain level now: 0/10. --02:23 08/28/20 Eros Ash.Locked/Released at 08/28/2020 02:24 by Eros Ash Name Value Range Interpretation Code Description Data Rachel rce(s) Supporting Document(s) ID Date Data Source [id number] 08/27/2020 10:54:00 PM EDT [facility] 1 Clinical Report - Physicians/Mid Levels [facility] Emergency Department [address] [place] [address] Phone #: ext- [phone] 08/27/2020 22:53 Patient: ZARIA CAR Sex: F [...] here on 08-14-20 for same after visiting [facility] ER on 08-11, workup and CTAP were nml, referred to [facility], seen once there, and was told that [...] Allergies: 2 Clinical Report - Physicians/Mid Levels [facility] Emergency Department [address] [place] [address] Phone #: ext- [phone] 08/27/2020 22:53 Patient: ZARIA CAR Sex: F [...] ABD //T// PELVIS W/ IV ONLY INSTITUTION: [facility] ORDERING PHYSICIAN: Tj Turner PATIENT HISTORY: Abdominal pain, LUQ, RLQ, Diarrhea. Accumulated DLP-675.9 mGy*cm, Estimated DLP-665.6 mGy*cm. Neg BEta. APS857, 75mL, [id number], 09/30. Labs verified and scanned. Time Out performed. Correct patient with 2 identifiers, type and amount of contrast used, correct body part and side all verified prior to examination. Images sent toOnePacs for review. - RLB (Hx) / CORONAL (DICOM Hx) 3 Clinical Report - Physicians/[facility] Emergency De partment [address] [place] [address] Phone #: ext- [phone] 08/27/2020 22:53 Patient: ZARIA CAR Sex: F : 1995 Age: 25yEXAM: CT Abdomen and Pelvis with IV contrastCLINICAL HISTORY: Abdominal pain, LUQ, RLQ, Diarrhea. Accumulated DLP-675.9 mGy*cm, EstimatedDLP-665.6 mGy*cm. Neg BEta. GKH231, 75mL, [id number], 09/30. Labs verified and scanned. Time Outperformed. [...] as reasonably achievable.CONTRAST: with intravenous contrast. With; [id number], 75MlCOMPARISON: None provided.FINDINGS:LUNG BASES: The lung bases [...] abdominal aortic aneurysm. 4 Clinical Report - Physicians/[facility] Emergency Department [address] [place] [address] Phone #: [phone] mwh- [phone] 08/27/2020 22:53 Patient: ZARIA CAR Sex: F : 1995 Age: 25yBONES: No aggressive appearing osseous lesion. No acute osseous pathology evident.IMPRESSION:1. Appendix is normal.2. The patient is status post cholecystectomy.Electronically signed on Aug 28, 2020 2:04:10 AM EDT by:Wei Waddell MD, Ph.D.Diplomate, [place] [employer]. Study type: abdomen and [...] (mU/mL) Weeks post LMP 5.4-708 mU/mL 3-4 Ytdie312-62672 mU/mL 5-6 Weeks 4059-442993 mU/mL 7-8 Dxmns78662-178832 mU/mL 9-10 Weeks 58920-03239 mU/mL 12-14 Wipuv32312-69656 mU/mL 15-16 Weeks 8240-10743 mU/mL 17-18 WeeksCBC w Diff: (ABILIO: 08/27/2020 [...] 0.00) 5 Clinical Report - Physicians/Mid Levels [facility] Emergency Department [address] [place] [address] Phone #: ext- [phone] 08/27/2020 22:53 Patient: [...] Male GFR Interprentation 20-49 yrs >60 mL/min Xppkoa40-87 yrs >56 mL/min Normal 60-69 yrs >49 mL/min Normal 70-79yrs>42 mL/min Normal 80 and above >35 mL/min Normal Female GFRInterpretation 20-39 yrs >60 mL/min Normal 40-49 yrs >58 mL/minNormal 50-59 yrs >51 mL/min Normal 60-69 yrs >45 mL/min Orvtve71-25 yrs >39 mL/min Normal 80 and above >32 mL/min NormalLipase: (ABILIO: 08/27/2020 23:18) ( Mscvd 08/27/2020 23:55) Final results Test Result Flag Units (Reference) LIPASE 28 U/L (13 - 60)Urinalysis: (ABILIO: 08/27/2020 23:18) ( MsgRcvd 08/27/2020 23:43) Final results Test Result Flag Units (Reference) URINALYSIS URINALYSIS SOURCE Clean Catch COLOR yellow (NORMAL: Yello CLARITY clear (NORMAL: Clear SPEC GRAVITY 1.010 (1.001 - 1.030 pH 6.5 (5 - 9) GLUCOSE NORM (NORMAL: Negat BILIRUBIN NEG (NORMAL: Negat KETONE 50 A (NORMAL: Negat PROTEIN 30 (NORMAL: Negat 6 Clinical Report - Physicians/Mid Levels [facility] Emergency Department [address] [place] [address] Phone #: ext- [phone] 08/27/2020 22:53 Patient: [...] spicy 7 Clinical Report - Physicians/Mid Levels [facility] Emergency Department [address] [place] [address] Phone #: ext- [phone] 08/27/2020 22:53 Patient: [...] Value Range Interpretation Code Description Data Rachel cordero(s) Supporting Document(s) ID Date Data Source [id number] 08/27/2020 11:59:00 PM EDT [facility] Name Value Range Interpretation Code Description Data Rachel rce(s) Supporting Document(s) COMPREHENSIVE METABOLIC PANEL [facility] COMPREHENSIVE METABOLIC PANEL Sodium [Moles/volume] in Serum or Plasma 135 mEq/L 134 - 153 [facility] Potassium [Moles/volume] in Serum or Plasma 3.4 mEq/L 3.6 - 5.0 L [facility] Chloride [Moles/volume] in Serum or Plasma 100 mEq/L 98 - 107 [facility] Carbon dioxide, total [Moles/volume] in Serum or Plasma 23 MEQ/L 22 - 30 [facility] Glucose [Mass/volume] in Serum or Plasma 132 MG/DL 70 - 99 H [facility] BUN 9 MG/DL 7 - 21 [facility] Creatinine [Mass/volume] in Serum or Plasma 0.5 MG/DL 0.7 - 1.5 L [facility] BUN/CREAT 18 8 - 27 [facility] Protein [Mass/volume] in Serum or Plasma 7.2 G/DL 6.3 - 8.2 [facility] Albumin [Mass/volume] in Serum or Plasma 4.5 G/DL 3.9 - 5.0 [facility] Globulin [Mass/volume] in Serum by calculation 2.7 GM/DL 2.4 - 3.2 [facility] A/G RATIO 1.7 0.8 - 2.0 [facility] Calcium [Mass/volume] in Serum or Plasma 9.5 MG/DL 8.4 - 10.2 [facility] Bilirubin.total [Mass/volume] in Serum or Plasma 0.7 MG/DL 0.2 - 1.3 [facility] Alkaline phosphatase [Enzymatic activity/volume] in Serum or Plasma 90 U/L 38 - 126 [facility] Aspartate aminotransferase [Enzymatic activity/volume] in Serum or Plasma 13 U/L 5 - 40 [facility] Alanine aminotransferase [Enzymatic activity/volume] in Seru m or Plasma 10 U/L 7 - 56 [facility] Anion gap 3 in Serum or Plasma 12.0 mmol/L 8.0 - 16.0 [facility] AGE 25 yrs [facility] al NON-AA GFR >60 mL/min [facility] ital AFR AMER GFR >60 mL/min [facility] Ho spital Male GFR In terprentation 20-49 [...] >32 mL/min Normal ID Date Data Source [id number] 08/27/2020 11:55:00 PM EDT [facility] Name Value Range Interpretation Code Description Data Rachel rce(s) Supporting Document(s) Lipase [Enzymatic activity/volume] in Serum or Plasma 28 U/L 13 - 60 [facility] ID Date Data Source [id number] 08/27/2020 11:45:00 PM EDT [facility] Name Value Range Interpretation Code Description Data Rachel rce(s) Supporting Document(s) CBC W/AUTOMATED DIFF [facility] COMPLETE BLOOD COUNT Leukocytes [#/volume] in Blood by Automated count 11.8 10^3/uL 4.2 - 11.0 H [facility] Erythrocytes [#/volume] in Blood by Automated count 4.34 10^6/uL 4. 20 - 5.40 [facility] Hemoglobin [Mass/volume] in Blood 14.0 g/dL 12.0 - 16.0 [facility] Hematocrit [Volume Fraction] of Blood by Automated count 41.4 % 3 7.0 - 47.0 [facility] Erythrocyte mean corpuscular volume [Entitic volume] by Auto mated count 95.4 fL 81.0 - 101 [facility] Erythrocyte mean corpuscular hemoglobin [Entitic mass] by Automated count 32.3 pg 27.0 - 34.0 [facility] Erythrocyte mean corpuscular hemoglobin concentration [Mass/volume] by Automated count 33.8 g/dL 31.0 - 36.0 [facility] Erythrocyte distribution width [Ratio] by Automated count 12.5 % 11.5 - 14.5 [facility] Platelets [#/volume] in Blood by Automated count 224 10^3/uL 150 - 45 0 [facility] Platelet mean volume [Entitic volume] in Blood by Automated count 10.4 fL 7.4 - 10.4 [facility] Neutrophils/100 leukocytes in Blood by Automated count 76.5 % 37. 0 - 80.0 [facility] Lymphocytes/100 leukocytes in Blood by Manual count 17.2 % 25.0 - 40.0 L [facility] Monocytes/100 leukocytes in Blood by Automated count 5.4 % 3.0 - 8.0 [facility] Eosinophils/100 leukocytes in Blood by Automated count 0.4 % 0.0 - 7.0 [facility] Basophils/100 leukocytes in Blood by Automated count 0.3 % 0.0 - 2.5 [facility] %IG 0.2 % 0.0 - 0.0 [facility] %NRBC 0.0 % 0.0 - 0.0 [facility] al Neutrophils [#/volume] in Blood by Automated count 9.02 10^3/uL 2.00 - 6.90 H [facility] Lymphocytes [#/volume] in Blood by Automated count 2.02 10^3/uL 0.60 - 3.40 [facility] Monocytes [#/volume] in Blood by Automated count 0.63 10^3/uL 0.00 - 0.90 [facility] Eosinophils [#/volume] in Blood by Automated count 0.05 10^3/uL 0.00 - 0.70 [facility] Basophils [#/volume] in Blood by Automated count 0.03 10^3/uL 0.00 - 0.20 [facility] #IG 0.02 10^3/uL 0.00 - 0.10 [facility] #NRBC 0.00 10^3/uL 0.00 - 0.00 [facility] MANUAL DIFF SEE BELOW [facility] ital Segmented neutrophils/100 leukocytes in Blood by Manual count 82 % 37 - 80 H [facility] %LYMPH 12 % 25 - 40 L [facility] al %MONO 5 % 3 - 8 [facility] al %EOS 1 % 0 - 7 [facility] RBC MORPH MORPH IS NORMAL [facility] ID Date Data Source [id number] 08/27/2020 11:44:00 PM EDT [facility] Name Value Range Interpretation Code Description Data Rachel rce(s) Supporting Document(s) Choriogonadotropin.intact [Units/volume] in Serum or Plasma <0.5 mIU/ mL [facility] Interpr etation: Less than 5 mU/mL: Negative 6-10 mU/mL: Borderline (suggest repeat in 48 hours) >10: Positive Approx HCG range (mU/mL) Weeks post LMP 5.4-708 mU/mL 3-4 Weeks 217-46312 mU/mL 5-6 Weeks 4059-763882 mU/mL 7-8 Weeks 22958-742900 mU/mL 9-10 Weeks 61432-24008 mU/mL 12-14 Weeks 13794-54115 mU/mL 15-16 Weeks 8240- 66633 mU/mL 17-18 Weeks ID Date Data Source [id number] 08/27/2020 11:42:00 PM EDT [facility] Name Value Range Interpretation Code Description Data Rachel rce(s) Supporting Document(s) URINALYSIS [facility] tianna URINALYSIS SOURCE Clean Catch [facility] ital COLOR yellow NORMAL: Yellow [facility] CLARITY clear NORMAL: Clear [facility] Specific gravity of Urine by Test strip 1.010 1.001 - 1.030 [facility] pH 6.5 5 - 9 [facility] Glucose [Mass/volume] in Urine by Test strip NORM NORMAL: Negat [facility] Bilirubin.total [Presence] in Urine by Test strip NEG NORMAL: Negative [facility] Ketones [Presence] in Urine by Test strip 50 NORMAL: Negative A [facility] Protein [Mass/volume] in Urine by Test strip 30 NORMAL: Negat [facility] Nitrite [Presence] in Urine by Test strip NEG NORMAL: Negative [facility] BLOOD NEG NORMAL: Negative [facility] Leukocyte esterase [Presence] in Urine by Test strip 25 JENNY L: Negative [facility] Urobilinogen [Mass/volume] in Urine by Test strip 1 less nathalia n 1.0 mg/dL [facility] MICROSCOPIC See Below [facility] ital WBC 1 - 3 NORMAL: NONE SEEN [facility] Erythrocytes [#/volume] in Urine by Test strip 0 - 1 NORMAL: NON E SEEN [facility] EPITHELIAL FEW NORMAL: NONE SEEN [facility] Bacteria [Presence] in Urine sediment by Light microscopy Tr rosy NORMAL: NONE SEEN [facility] [facility] Mucus [Presence] in Urine sediment by Light microscopy Trace NORMAL: NONE SEEN [facility] ID Date Data Source [id number] 08/27/2020 11:42:00 PM EDT [facility] Name Value Range Interpretation Code Description Data Rachel rce(s) Supporting Document(s) Lactate [Moles/volume] in Serum or Plasma 2.7 MMOL/L 0.2 - 2.2 H [facility] ID Date Data Source [id number] 08/27/2020 12:00:00 AM EDT [facility] Name Value Range Interpretation Code Description Data Rachel rce(s) Supporting Document(s) Carestart Rapid COVID Antigen Test Negative [facility] This lab was reported by Chriss king. ID Date Data Source [id number] 08/15/2020 09:04:00 AM EDT [facility] [address] [place] [address] PHONE: [phone] FAX: [phone] Name .................. : JOCELINE GARCIA Gopi Acct Number.................. : [id number] ROOM. ................. : TR-02 Number ................... : [id number] Stay type ............. : E/R Discharge Date......... ... : 08/14/20 Admit Date ......... : 08/14/20 Admit Phys .................... : COENRIQUETA Date of ....... : 1995 Family Phys ................... : UNKNOWN Phone .................. : [phone] Age ................................ : 25 Film# .................. .:[id number] Sex ................................. : F Unsigned transcriptions are preliminary reports and do not represent a medical or legal document CT ABD & PELVIS W/ IV ONLY [id number] COMPLETE:08/14/20 19:22 ARLENE 8055 Reason(s): Abdominal Pain [...] 75 Isovue 370 Page 1 of 2 [facility] [address] [place] [address] PHONE: [phone] FAX: [phone] Name .................. : JOCELINE Nguyễn Acct Number.................. : [id number] ROOM. ................. : TR- MR Number ................... : [id number] Stay type ............. : E/R Discharge Date......... ... : 08/14/20 Admit Date ......... : 08/14/20 Admit Phys .................... : COONEYNORM Date of ....... : 1995 Family Phys ................... : UNKNOWN Phone .................. : [phone] Age ................................ : 25 Film# .................. .:[id number] Sex ................................. : F Unsigned transcriptions are preliminary reports and do not represent a medical or legal document CT ABD & PELVIS W/ IV ONLY [id number] COMPLETE:08/14/20 19:22 ARLENE 8055 Reason(s): Abdominal Pain Method of administration: Intravenous Electronically Reviewed and Signed By Wayne Farias M.D. , 08/15/20 09:04, NATIY Transcribe Initials: RIANNA , Transcribe Date: 08/15/20 00:16, Dictation Date: Copy for: VIPIN MORENO via fax Copy for: EMERGENCY DEPT via modem Copy for: 710 MED REC DISCHARGED Page 2 of 2 Name Value Range Interpretation Code Description Data Rachel rce(s) Supporting Document(s) ID Date Data Source [id number] 08/14/2020 06:54:00 PM EDT [facility] 1 OrderSheet [facility] Emergency Department [address] [place] [address] Phone #: ext- [phone] 08/14/2020 18:33 Patient: ZARIA CAR Sex: F : 1995 Age: 25yWEIGHT:71.2 kg (S) HEIGHT:67 inches (S) BMI:24.6ALLERGIES: No Known Drug AllergyCHIEF COMPLAINT: abdominal pain, nauseaDIAGNOSIS: Abdominal painLAB ORDERSOrder Description Priority Entered Acknowledged InitialedCBC w Diff STAT 18:47 08/14/2020 18:47 Camacho Moore R.N.;CMP STAT 18:47 08/14/2020 18:47 Camacho Moore R.N. PA;Lipase ST AT 18:47 08/14/2020 18:47 Camacho Moore R.N. PA;Urinalysis (Clean STAT 18:47 08/14/2020 Ack'd: 18:58 Bhavna Moore R.N.Catch) Camacho Dumas Cancelled: Unable to Collect 20:29 PA; Bhavna Moore R.N.Lactic Acid STAT 18:47 08/14/2020 18:47 Camacho Moore R.N.;DIAGNOSTIC STUDY ORDERSOrder Description Priority Entered Acknowledged InitialedCT Abd PEL W/ IV STAT 18:47 08/14/2020 Ack'd: 18:47 19:08 BurnhamContrast Only Bhavna Floyd rocket engine component mechanicDeric ER(Oxygen?(No)) PA; RAzulNAzul Tech1(IV?(Yes)) NOTES: RLQ Pain Reason for Study: Abdominal PainMEDICATION/IV/DRIP/FLUID ORDERSOrder Description Priority Entered Acknowledged InitialedNS IV : Bolus 1000 18:47 08/14/2020 Ack'd: 18:47 19:25 Oscar,mL, then 150 mL/hr Bhavna Covarrubias R.N. PA; R.N. 2 OrderSheet [facility] Emergency Department [address] [place] [address] Phone #: ext- [phone] 08/14/2020 18:33 Patient: ZARIA CAR Sex: F : 1995 Age: 25yZofran IVP 8 mg 18:47 08/14/2020 Ack'd: 18:47 19:25 Camacho Moore Amber Amber R.N. PA; R.N.Morphine IVP 4 mg 18:47 08/14/2020 Ack'd: 18:47 19:28 Oscar,(HIGH ALERT Bhavna Floyd R.N.MEDICATION) CHRISTIN; R.N.Reglan 10 [...] rce(s) Supporting Document(s) ID Date Data Source [id number] 08/14/2020 06:54:00 PM EDT [facility] 1 Medication Reconciliation Report [facility] Emergency Department [address] [place] [address] Phone #: ext- [phone] 08/14/2020 18:33 [id number] Sex: F : 1995 Age: 25yWeight: 71.2 kgHeight/Length: 67 in.BMI: 24.6ALLERGIES: No Known Drug AllergyThe patient's Home Medications are listed below:NONE.The source(s) of the original Home Medication information:patientThe following Medications were given to the patient in the Emergency Department:Zofran [IVP] IVP 8 mg, administered: 19:25 08/14/2020NS [IV] IV Fluids bolus 1000 mL wide open, administered: 19:20 08/14/2020Morphine [IVP] IVP 4 mg diluted in NS 10 mL, administered: 19:28 08/14/2020eglan [IVP] IVP 10 mg, administered: 20:06 08/14/2020The following Medications were prescribed to the patient:Reglan 10 mg tablet Take 1 tablet four times a day for 5 days -- Dispense 20 tablet. Refills: 0.Substitution permitted.Pharmacy - [facility] [id number] [facility] [employer] - [id number] [place] [address] ; [place] [address]. . -- CHRISTIN Gonzalez Name Value Range Interpretation Code Description Data Rachel rce(s) Supporting Document(s) ID Date Data Source [id number] 08/14/2020 06:54:00 PM EDT [facility] 1 Medication Administration Record [facility] Emergency Department [address] [place] [address] Phone #: ext [phone] 08/14/2020 18:33 Patient: ZARIA CAR Sex: F : 1995 Age: 25yWeight: 71.2 kgHeight/Length: 67 inBMI: 24.6ALLERGIES: No Known Drug Allergy Date/Time Medication Administered Medication OrderedStart NS [IV] NS IV : Bolus 1000 mL, then 62111:20 08/14/2020 Dose: IV Fluids mL/hrWeBhavna mueller R.NAzul Bolus: 1000 mL wide open---- Dispensed: 1000 mL bagStop Site: #1 left AC20:21 08/14/2020Bhavna Moore R.N.Given ZOFRAN [IVP] (ONDANSETRON HCL) Zofran IVP 8 mg19:25 08/14/2020 Dose: 8 mg IVPBhavna Moore R.N. Site: #1 left ACGiven MORPHINE [IVP] Morphine IVP 4 mg (HIGH ALERT19:28 08/14/2020 Dose: 4 mg IVP MEDICATION)Bhavna Moore R.N. In: NS 10 mL Site: #1 left ACGiven REGLAN [IVP] (METOCLOPRAMIDE Reglan 10 mg IVP X1 dose: 10 mg20:06 08/14/2020 HCL) (NOW x1)Sarah Wei R.N. Dose: 10 mg IVP Site: #1 left AC Name Value Range Interpretation Code Description Data Rachel rce(s) Supporting Document(s) ID Date Data Source [id number] 08/14/2020 06:54:00 PM EDT [facility] 1 General Instructions [facility] Emergency Department [address] [place] [address] Phone #: ext- [phone] 08/14/2020 18:33 Patient: [...] Dispense 20 tablet. Refills: 0.Substitution permitted.Pharmacy - [facility] [id number] [facility] [employer] - [id number] [facility] ; [place] [address]. .Follow-up:Follow up with a specialist OB. Reason for referral: Ovarian Cyst versus Adhesions?. Summary of careprovided to patient.Understanding of the discharge instructions verbalized by patient. ADDITIONAL INFORMATIONUnknown Causes of Abdominal Pain (Female) 2 General Instructions [facility] Emergency Department [address] [place] [address] Phone #: ext- [phone] 08/14/2020 18:33 Patient: ZARIA CAR Sex: F [...] for taking these medicines. 3 General Instructions [facility] Emergency Department [address] [place] [address] Phone #: ext- [phone] 08/14/2020 18:33 Patient: ZARIA CAR Sex: F : 1995 [facility] Rest as much as you can [...] begin to improve in thenext 24 hours.Call [phone] if any of these occur: Trouble breathing Confusion Fainting or loss of consciousness Rapid heart rate 4 General Instructions [facility] Emergency Department [address] [place] [address] Phone #: ext- [phone] 08/14/2020 18:33 Patient: ZARIA CAR Sex: F [...] or water and you are getting dehydrated [id number] [employer]. [address] [place] [address]. All rights reserved. This information is not intended as asubstitute for professional medical care. Always follow your healthcare professional's instructions. You have been given the following additional information: Abdominal Pain, Unknown Cause, (Female)(Electronically signed by CHRISTIN Gonzalez 08/14/2020 20:34) Name Value Range Interpretation Code Description Data Rachel rce(s) Supporting Document(s) ID Date Data Source [id number] 08/14/2020 06:54:00 PM EDT [facility] 1 Clinical Report - Nurses [facility] Emergency Department [address] [place] [address] Phone #: ext- [phone] 08/14/2020 18:33 Patient: ZARIA CAR Sex: F [...] very painful to palpation. Pt went to [facility] on Thursday morning who did lab work butultimately discharged without answer. Pt states since then has gotten worse still and does not have anappetite. Pt denies n/v/d.). She has had abdominal pain. The pain is described as located in the RLQ.No nausea, vomiting, diarrhea or constipation. 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 BMI: 24.6. --18:33 08/14/20 Lulú Mkceon R.N.MedicationsNone. --18:36 08/14/20 Joyce Mckeon R.N.AllergiesNo Known Drug Allergy. --18:36 08/14/20 Lulú Mckeon R.N.PROBLEMS:Ectopic .Ovarian Cyst.Migraine Headache. --18:37 08/14/20 Lulú Mckeon R.N.Medication/allergy information source: the patient. --18:39 08/14/20 Lulú Mckeon R.N.ADDITIONAL SURGERIES: 2 Clinical Report - Nurses [facility] Emergency Department [address] [place] [address] Phone #: ext- [phone] 08/14/2020 18:33 [id number] Sex: F : 1995 Age: 25y Cholecystectomy. [...] skin integrity risk identified. --18:39 08/14/20 Lulú Mckeon R.N. Interventions Identification band on patient. --18:39 [...] within normallimits. 3 Clinical Report - Nurses [facility] Emergency Department [address] [place] [address] Phone #: ext- [phone] 08/14/2020 18:33 [id number] Sex: F : 1995 Age: 25y SKIN: [...] PA notified. --18:40 08/14/20 Lulú Mckeon R.N. 19:08/14/2020 Site #1 started via IV in the left antecubital space with an 20g angiocath, with aseptic technique and good blood return; one attempt. Saline lock flushed with 10 mL saline. --19:08/14/20 Bhavna Moore R.N. Patient returned from CT by wheelchair with IV, mask and radiology technologist. --19:08/14/20 Bhavna Moore R.N. late entry - 19:12 08/14/20. Patient transported to CT by wheelchair with IV, mask and radiology technologist. --1908/14/20 Bhavna Moore R.N. 19:08/14/2020 Started bag #1 1000 mL IV Fluids [...] 99% on room air. --20:15 08/14/20 Bhavna Moore R.N. 20:00 08/14/20. BP: 113/72. MAP: 85. HR: 78. RR: 16. O2 saturation: 100% on room air. --20:16 08/14/20 Bhavna Moore R.N. 4 Clinical Report - Nurses [facility] Emergency Department [address] [place] [address] Phone #: ext- [phone] 08/14/2020 18:33 Patient: [...] RN. Information reviewed with patient. Verbalizes understanding. --20:08/14/20 Sarah Wei R.N. 20:08/14/2020 IV Fluids NS [...] course information. Prescription(s) sent electronically to pharmacy ([facility]). Reviewed referral to a primary care physician for followup. Patient verbalized understanding. Written instructions provided in [place]. The patient was discharged by the physician assistant hall director. She was discharged home and accompanied by spouse. She left ambulatory and via private vehicle. Spouse driving. --20:08/14/20 Bhavna Moore R.N. 20:08/14/20. BP: 116/74. MAP: 88. HR: 89. RR: 16. O2 saturation: 98% on room air. Temp: 97.8 F (oral). Pain level now: 06/20. --20:31 08/14/20 Bhavna Moore R.N.Locked/Released at 08/14/2020 20:31 by Bhavna Moore R.N. Name Value Range Interpretation Code Description Data Rachel rce(s) Supporting Document(s) ID Date Data Source [id number] 08/14/2020 06:54:00 PM EDT [facility] 1 Clinical Report - Physicians/Mid Levels [facility] Emergency Department [address] [place] [address] Phone #: ext- [phone] 08/14/2020 18:33 [id number] Sex: F : 1995 Age: 25y Time Seen: 18:34 08/14/2020. Arrived- By private vehicle. Historian- patient.HISTORY OF PRESENT ILLNESS Chief Complaint: ABDOMINAL PAIN and NAUSEA. This started 4 days ago; Pt states she has had RLQ abd pain since Thursday and this has progressively gotten worse. Pt states very painful to palpation. Pt went to [facility] on Thursday morning who did lab work [...] Allergy. 2 Clinical Report - Physicians/Mid Levels [facility] Emergency Department [address] [place] [address] Phone #: ext- [phone] 08/14/2020 18:33 Patient: ZARIA CAR Sex: F : 1995 Age: 25ySOCIAL HISTORYLight tobacco smoker (cigarette)- less than 1/2 a pack per day. Occasional alcohol use. No drug use.PHYSICAL EXAMVital Signs: 08/14/2020 18:34 BP: 121/75. MAP: 90. HR: 91. RR: 18. O2 saturation: 100% on room air.Temp: 97.1 F. Pain level now: 7/10. Have been reviewed as normal. Oxygen saturation [...] 0.70) 3 Clinical Report - Physicians/Mid Levels [facility] Emergency Department [address] [place] [address] Phone #: ext- [phone] 08/14/2020 18:33 Patient: [...] Pain. 4 Clinical Report - Physicians/Mid Levels [facility] Emergency Department [address] [place] [address] Phone #: ext- [phone] 08/14/2020 18:33 Patient: ZARIA CAR Sex: F : 1995 Age: 25yPROGRESS AND PROCEDURESCourse of Care: 19:55 Aug 14 2020. Evaluation after observation. (Discussed CT A/P and possiblyOvarian cyst versus adhesions, pt has f/u with OB. Pt had negative HCG at [facility] on Thursday.). Patient counseled in person regarding [...] tablet. Refills: 0. Substitution permitted. Pharmacy - [facility] [id number] [facility] [employer] - [id number] [place] [address] ; [place] [address]. . Follow-up: Follow up with a specialist OB. Reason for referral: Ovarian Cyst versus Adhesions?. Summary of care provided to patient. Understanding of the discharge instructions verbalized by patient.(Electronically signed by CHRISTIN Gonzalez 08/14/2020 20:34) 5Clinical Report - Physicians/Mid Levels [facility] Emergency Department [address] [place] [address] Phone #: ext- [phone] 08/14/2020 18:33 Patient: ZARIA CAR Sex: F : 1995 Age: 25y Name Value Range Interpretation Code Description Data Rachel rce(s) Supporting Document(s) ID Date Data Source [id number] 08/14/2020 07:46:00 PM EDT [facility] Name Value Range Interpretation Code Description Data Rachel rce(s) Supporting Document(s) Lipase [Enzymatic activity/volume] in Serum or Plasma 31 U/L 13 - 60 [facility] ID Date Data Source [id number] 08/14/2020 07:46:00 PM EDT [facility] Name Value Range Interpretation Code Description Data Rachel rce(s) Supporting Document(s) COMPREHENSIVE METABOLIC PANEL [facility] COMPREHENSIVE METABOLIC PANEL Sodium [Moles/volume] in Serum or Plasma 136 mEq/L 134 - 153 [facility] Potassium [Moles/volume] in Serum or Plasma 4.2 mEq/L 3.6 - 5.0 [facility] Chloride [Moles/volume] in Serum or Plasma 100 mEq/L 98 - 107 [facility] Carbon dioxide, total [Moles/volume] in Serum or Plasma 29 MEQ/L 22 - 30 [facility] Glucose [Mass/volume] in Serum or Plasma 86 MG/DL 70 - 99 [facility] BUN 8 MG/DL 7 - 21 [facility] al Creatinine [Mass/volume] in Serum or Plasma 0.5 MG/DL 0.7 - 1.5 L [facility] BUN/CREAT 16 8 - 27 [facility] al Protein [Mass/volume] in Serum or Plasma 6.6 G/DL 6.3 - 8.2 [facility] Albumin [Mass/volume] in Serum or Plasma 4.3 G/DL 3.9 - 5.0 [facility] Globulin [Mass/volume] in Serum by calculation 2.3 GM/DL 2.4 - 3.2 L [facility] A/G RATIO 1.9 0.8 - 2.0 [facility] Calcium [Mass/volume] in Serum or Plasma 9.8 MG/DL 8.4 - 10.2 [facility] Bilirubin.total [Mass/volume] in Serum or Plasma <0.7 MG/DL 0.2 - 1.3 [facility] Alkaline phosphatase [Enzymatic activity/volume] in Serum or Plasma 69 U/L 38 - 126 [facility] Aspartate aminotransferase [Enzymatic activity/volume] in Serum or Plasma 12 U/L 5 - 40 [facility] Alanine aminotransferase [Enzymatic activity/volume] in Seru m or Plasma 6 U/L 7 - 56 L [facility] Anion gap 3 in Serum or Plasma 7.0 mmol/L 8.0 - 16.0 L [facility] AGE 25 yrs [facility] al NON-AA GFR >60 mL/min [facility] ital AFR AMER GFR >60 mL/min [facility] spital Male GFR In terprentation 20-49 [...] >32 mL/min Normal ID Date Data Source [id number] 08/14/2020 07:33:00 PM EDT [facility] Name Value Range Interpretation Code Description Data Rachel rce(s) Supporting Document(s) Lactate [Moles/volume] in Serum or Plasma 1.4 MMOL/L 0.2 - 2.2 [facility] ID Date Data Source [id number] 08/14/2020 07:25:00 PM EDT [facility] Name Value Range Interpretation Code Description Data Rachel rce(s) Supporting Document(s) CBC W/AUTOMATED DIFF [facility] COMPLETE BLOOD COUNT Leukocytes [#/volume] in Blood by Automated count 6.7 10^3/uL 4.2 - 1 1.0 [facility] Erythrocytes [#/volume] in Blood by Automated count 4.16 10^6/uL 4. 20 - 5.40 L [facility] Hemoglobin [Mass/volume] in Blood 13.4 g/dL 12.0 - 16.0 [facility] Hematocrit [Volume Fraction] of Blood by Automated count 40.4 % 3 7.0 - 47.0 [facility] Erythrocyte mean corpuscular volume [Entitic volume] by Auto mated count 97.1 fL 81.0 - 101 [facility] Erythrocyte mean corpuscular hemoglobin [Entitic mass] by Automated count 32.2 pg 27.0 - 34.0 [facility] Erythrocyte mean corpuscular hemoglobin concentration [Mass/volume] by Automated count 33.2 g/dL 31.0 - 36.0 [facility] Erythrocyte distribution width [Ratio] by Automated count 12.5 % 11.5 - 14.5 [facility] Platelets [#/volume] in Blood by Automated count 231 10^3/uL 150 - 45 0 [facility] Platelet mean volume [Entitic volume] in Blood by Automated count 10.6 fL 7.4 - 10.4 H [facility] Neutrophils/100 leukocytes in Blood by Automated count 52.7 % 37. 0 - 80.0 [facility] Lymphocytes/100 leukocytes in Blood by Manual count 36.0 % 25.0 - 40.0 [facility] Monocytes/100 leukocytes in Blood by Automated count 8.8 % 3.0 - 8.0 H [facility] Eosinophils/100 leukocytes in Blood by Automated count 1.6 % 0.0 - 7.0 [facility] Basophils/100 leukocytes in Blood by Automated count 0.6 % 0.0 - 2.5 [facility] %IG 0.3 % 0.0 - 0.0 H [facility] al %NRBC 0.0 % 0.0 - 0.0 [facility] al Neutrophils [#/volume] in Blood by Automated count 3.51 10^3/uL 2.00 - 6.90 [facility] Lymphocytes [#/volume] in Blood by Automated count 2.40 10^3/uL 0.60 - 3.40 [facility] Monocytes [#/volume] in Blood by Automated count 0.59 10^3/uL 0.00 - 0.90 [facility] Eosinophils [#/volume] in Blood by Automated count 0.11 10^3/uL 0.00 - 0.70 [facility] Basophils [#/volume] in Blood by Automated count 0.04 10^3/uL 0.00 - 0.20 [facility] #IG 0.02 10^3/uL 0.00 - 0.10 [facility] #NRBC 0.00 10^3/uL 0.00 - 0.00 [facility] MANUAL DIFF NOT INDICATED [facility] RBC MORPH NOT INDICATED [facility] ID Date Data Source [id number] 07/10/2020 02:44:00 PM EST [facility] ([facility]) Name Value Range Interpretation Code Description Data Rachel rce(s) Supporting Document(s) Glucose, Fasting 94 mg/dL 70-100 [facility] ([facility]) Blood Urea Nitrogen 10 mg/dL 7-18 [facility] ([facility]) Creatinine For GFR 0.60 mg/dL 0.55-1.30 [facility] ([facility]) Glomerular Filtration Rate Laboratory test result [facility] ([facility], [facility]) <content>Units are mL/min/1.73 m2</content>
<content></content>
<content>Chronic Kidney Disease Staging per NKF:</content>
<content></content>
<content>Stage I & II GFR >=60 Normal to Mildly Decreased</content>
<content>Stage III GFR 30- 59 Moderately Decreased</content>
<content>Stage IV GFR 15-29 Severely Decreased</content>
<content>Stage V GFR <15 Very Little GFR Left</content>
<content>ESRD GFR <15 on HYDROGEN BRAZE FURNACE OPERATOR</content>
<content></content> Sodium Level 139 meq/L 136-145 [facility] ([facility], [facility]) Potassium Serum 4.3 meq/L 3.5-5.1 [facility] ([facility], [facility]) Chloride Level 105 meq/L 98-107 [facility] ([facility], [facility]) Carbon Dioxide Level 30 meq/L 21-32 [facility] ([facility], [facility]) Anion Gap 4 meq/L 8-16 [facility] ([facility], [facility]) Ast/Sgot 7 U/L 7-37 [facility] ([facility], [facility]) Calcium Level 9.5 mg/dL 8.5-10.1 [facility] ([facility], [facility]) Alt/SGPT 17 U/L 12-78 [facility] ([facility], [facility]) Bilirubin,Total 0.3 mg/dL 0.2-1.0 [facility] ([facility], [facility]) Alkaline Phosphatase 85 U/L 45-117 [facility] ([facility]) Albumin 4.1 GM/DL 3.2-5.2 [facility] ([facility], [facility]) Total Protein 7.6 GM/DL 6.4-8.2 [facility] ([facility], [facility]) Albumin/Globulin Ratio 1.2 1.2-2.2 [facility] ([facility], [facility]) ID Date Data Source [id number] 07/10/2020 02:44:00 PM EST [facility] ([facility], [facility]) Name Value Range Interpretation Code Description Data Rachel rce(s) Supporting Document(s) White Blood Count 6.7 10 4.0-10.0 [facility] Red Blood Count 4.57 10 4.00-5.40 [facility] ([facility], [facility]) Hemoglobin 14.1 g/dL 12.0-15.5 [facility] ([facility], [facility]) Hematocrit 45.2 % 36.0-47.0 [facility] ([facility], [facility]) Mean Corpuscular Volume 98.9 fl 80.0-96.0 M [facility] ([facility], [facility]) Mean Corpuscular HGB Conc 31.2 g/dL 32.0-36.5 [facility] ([facility], [facility]) Mean Corpuscular Hemoglobin 30.9 pg 27.0-33.0 [facility] ([facility], [facility]) Red Cell Distribution Width 12.5 % 11.5-14.5 [facility] ([facility], [facility]) Platelet Count, Automated 247 10 150-450 [facility] ([facility], [facility]) Neutrophils % 65.4 % 36.0-66.0 [facility] ([facility] Lymph % 26.9 % 24.0-44.0 [facility] ([facility] [place] % 6.6 % 2.0-8.0 [facility] ([facility] Eos % 0.6 % 0.0-3.0 [facility] ([facility] [facility] Baso % 0.4 % 0.0-1.0 MEDENT ([facility]) Immature Granulocyte % 0.1 % 0-3.0 [facility] Neutrophils # 4.4 10 1.5-8.5 MEDENT ([facility], [facility]) Nucleated Red Blood Cell % 0.0 % 0-0 MED ENT ([facility], [facility]) Lymph # 1.8 10 1.5-5.0 MEDENT ([facility]) [place] # 0.4 10 0.0-0.8 MEDENT ([facility]) Baso # 0.0 10 0.0-0.2 MEDENT ([facility]) Eos # 0.0 10 0.0-0.5 MEDENT ([facility]) ID Date Data Source [id number] 07/04/2020 01:30:00 PM EST MEDENT ([facility]) Name Value Range Interpretation Code Description Data Rachel rce(s) Supporting Document(s) Influenza virus A RNA [Presence] in Unsp ecified specimen by Probe and target amplification method Laboratory test result MEDENT ([facility]) Influenza virus B RNA [Presence] in Unsp ecified specimen by Probe and target amplification method Laboratory test result [facility]) ID Date Data Source [id number] 07/04/2020 01:29:00 PM EST [facility] Name Value Range Interpretation Code Description Data Rachel rce(s) Supporting Document(s) SARS coronavirus 2 RNA Not Detected [facility] This lab was ordered by [facility] michael and reported by [facility]. ID Date Data Source [id number] 07/07/2020 04:20:00 PM EST [facility] Name Value Range Interpretation Code Description Data Rachel rce(s) Supporting Document(s) SARS-CoV-2, JUAN Not Detected Not Detected [facility] This nucleic acid amplification test was developed and its performancecharacteristics determined by [facility]. Nucleic acidamplification tests include RT-PCR and [...] 11/01/2020 12:00:00 AM EDT Current Smoker completed [place] Smoker eCW1 ([facility]) Smoking 11/01/2020 12:00:00 AM EDT Current Smoker completed [place] Smoker eCW1 ([facility]) Vital Signs ID Date Data Source UNK Name Value Range Interpretation Code Description Data Source(s) Systolic blood pressure 116 mm[Hg] 116 mm[Hg] M EDENT ([facility]) Diastolic blood pressure 76 mm[Hg] 76 mm[Hg] MEDENT ([facility]) Respiratory rate 18 /min 18 /min [facility] ( [facility]) Oxygen saturation in Arterial blood by Pulse oximetry 97 % 97 % [facility] ([facility]) Body weight 170.38 [lb_av] 170.38 [lb_av] MEDEN T ([facility]) Body weight 77.282 kg 77.282 kg [facility] ([facility]) Body height 68 [in_i] 68 [in_i] [facility] 5'8" Body mass index (BMI) [Ratio] 25.9 kg/m2 25.9 k g/m2 [facility] ([facility]) Body surface area Derived from formula 1.91 m2 1.91 m2 [facility] ([facility]) Body weight 164.2 [lb_av] 164.2 [lb_av] eCW1 ([facility]) Body height 68 [in_i] 68 [in_i] eCW1 ([facility]) Body mass index (BMI) [Ratio] 24.96 kg/m2 24.96 kg/m2 eCW1 ([facility]) Heart rate 87 /min 87 /min eCW1 ([facility]) Respiratory rate 16 /min 16 /min eCW1 ([facility]) Body temperature 97.6 [degF] 97.6 [degF] eCW1 ( [facility]) Systolic blood pressure 111 mm[Hg] 111 mm[Hg] e CW1 ([facility]) Diastolic blood pressure 75 mm[Hg] 75 mm[Hg] eCW1 ([facility]) Body temperature 97.0 [degF] 97.0 [degF] MEDENT ([facility]) Body height 67 [in_i] 67 [in_i] MEDENT ([facility], [facility]) 5'7" Respiratory rate 16 /min 16 /min MEDENT ( [facility], [facility]) Oxygen saturation in Arterial blood by Pulse oximetry 97 % 97 % MEDENT ([facility], [facility]) Body weight 155.00 [lb_av] 155.00 [lb_av] MEDEN T ([facility], [facility]) Body mass index (BMI) [Ratio] 24.3 kg/m2 24.3 k g/m2 MEDENT ([facility], [facility]) Systolic blood pressure 115 mm[Hg] 115 mm[Hg] M EDENT ([facility], [facility]) Diastolic blood pressure 80 mm[Hg] 80 mm[Hg] MEDENT ([facility], [facility]) Heart rate 95 /min 95 /min MEDENT ([facility], [facility]) Body temperature 98.1 [degF] 98.1 [degF] MEDENT ([facility]) Respiratory rate 16 /min 16 /min MEDENT ( [facility]) Oxygen saturation in Arterial blood by Pulse oximetry 98 % 98 % MEDENT ([facility]) Heart rate 87 /min 87 /min MEDENT ([facility]) ID Date Data Source [id number] 01/03/2021 02:45:29 PM EDT [facility] Name Value Range Interpretation Code Description Data Source(s) WEIGHT RECORDED 160.00 pounds 160.00 pounds [facility] Height 67 Inches 067 Inches [facility]
[2021-03-10] MEDS ORDERED: NS 1,000 ML IV ONE (06:30)
[2021-03-10] MEDS ORDERED: ACETAMINOPHEN 500 MG TAB PO ONE (06:35)
--- NOTE | 2021-03-10 08:19 | REPVR ---
PROCEDURE INFORMATION: Exam: XR Complete Acute Abdomen Series Including Chest Exam date and time: 03/10/2021 7:15 AM Age: 26 years old Clinical indication: Other: Abd pain; Additional info: Abdominal pain TECHNIQUE: Imaging protocol: XR complete acute abdomen series, including 2 or more views of the abdomen and a single view chest. COMPARISON: CT ABD/PEL W/IV CONTRAST ONLY 02/06/2021 5:56 PM FINDINGS: Lungs: Mild left basilar pulmonary subsegmental atelectasis. The lungs are clear bilaterally. The pulmonary vasculature is normal. Pleural spaces: Normal. No pleural effusions. No pneumothorax. Heart/Mediastinum: The heart is normal in size and contour. Gastrointestinal tract: Normal. No bowel dilation. Intraperitoneal space: Normal. No free air. Organs: The gallbladder is likely surgically absent, with metallic clips overlying the gallbladder fossa. Bones/joints: No acute bony abnormality identified. Soft tissues: Normal. IMPRESSION: 1. Mild left basilar pulmonary subsegmental atelectasis. 2. Otherwise, no acute cardiopulmonary abnormality identified. 3. No acute abdominal or pelvic abnormality identified. 4. Prior cholecystectomy. Electronically signed by: Carl Cuenca On 03/10/2021 08:18:48 AM
[2021-03-10 08:21] LABS: CK-MB VALUE MASS < 1.0 NG/ML (<3.6); CPK CREATINE PHOSPHOKINASE 44 U/L (26-192); MB/CK RELATIVE INDEX 2.27 (< OR =4); TROPONIN I < 0.02 NG/ML (< 0.10)
--- NOTE | 2021-03-10 08:30 | REP ---
INDICATION: lower abd pain, h/o ovarian cysts. COMPARISON: 02/06/2021 TECHNIQUE: Transvesical imaging only. The patient refused transvaginal imaging. FINDINGS: Uterus is unchanged in size, shape, and echo pattern. The endometrial echo complex is unchanged. The right ovary measures 5.1 x 4 x 4.6 cm with an RI 0.5. Within the right ovary there is a complex cystic appearing 3.7 x 3.6 x 3.7 cm sized structure. The left ovary measures 5 x 1.6 x 2 cm and is within normal limits with an RI of 0.58. There is no free fluid in the cul-de-sac. Urinary bladder measures 7 x 3 cm. IMPRESSION: Probable hemorrhagic right ovarian cyst as described above. Consider two-month follow-up. <Electronically signed by Ra Paul > 03/10/21 [id number]
[2021-03-10] MEDS ORDERED: KETOROLAC 30 MG/ML 1ML VIAL IV ONE (08:50)
[2021-03-10] MEDS ORDERED: ISOVUE-370 76% 100ML VIAL As Ordered ONE (09:05)
--- NOTE | 2021-03-10 10:28 | REP ---
INDICATION: RLQ, Mcburney point tendernesss, r/o appy. COMPARISON: 02/06/2021 TECHNIQUE: Standard helical technique after the intravenous administration of 100 cc Isovue 370 FINDINGS: The lung bases are clear and unchanged. The liver, spleen, pancreas, adrenal glands, and kidneys are again seen to be within normal limits. The abdominal aorta and para-aortic regions are again seen to be within normal limits. The bowel loops and the mesenteries are again seen to be within normal limits. There is no free air. There is a trace amount of free pelvic fluid. In the right adnexa there is a round 3.4 cm sized low-density structure. This represents a change from the prior exam. The osseous structures are stable and intact. IMPRESSION: Right ovarian cyst. <Electronically signed by Ra Paul > 03/10/21 1024
[2021-03-10 10:59] VITALS: BP 100/57
--- NOTE | 2021-03-11 05:44 | ECGEPIP ---
[facility] - ED Test Date: 2021-03-10 Pat Name: JOSE CAR Department: Room: - Gender: Female Rat Farmer: : 1995 Requested By: NADEEM David PA-C Order Number: [id number] Reading MD: Camilo Jacobson Measurements Intervals [place] Rate: 78 P: 0 SD: 156 QRS: 65 QRSD: 96 T: 40 QT: 386 QTc: 440 Interpretive Statements Normal sinus rhythm Incomplete right bundle branch block NO PRIORS FOR COMPARISON Electronically Signed on 03-11-2021 5:44:12 EDT by Camilo Jacobson
--- NOTE | 2021-03-11 13:03 | ED PDOC ---
Post-Departure Follow-Up pelvic us faxed to dr randolph and michael reynolds for fu Suzanna Spence MD Mar 11, 2021 13:03
== END 2021-03-10 11:22 | disposition home or self-care (01) ==
LOC: M ED 20:29
DX: K64.4 Residual hemorrhoidal skin tags (principal); N83.291 Other ovarian cyst, right side; J98.11 Atelectasis; I45.19 Other right bundle-branch block; K59.00 Constipation, unspecified; G43.909 Migraine, unspecified, not intractable, without status migrainosus; F17.200 Nicotine dependence, unspecified, uncomplicated; Z80.0 Family history of malignant neoplasm of digestive organs
CPT/HCPCS: 74021; 74177; 76856; 80048; 81001; 82550; 82553; 84484; 84703; 85025; 86850; 86900; 86901; 93005; 93976; 96374; 99284; J1885; Q9967

== ENCOUNTER → 2021-03-18 | Outpatient (REF) | LOC: M EMP 12:30 | PROVIDERS: ATTEND Family Medicine | DX: Z11.52 Encounter for screening for COVID-19 (principal) ==

== ENCOUNTER 2021-04-13 04:35 | Emergency (ER) | payer OTHER ==
[~2021-04-13] VITALS: Ht 170.2 cm; Wt 75.0 kg
--- OUTSIDE RECORDS SUMMARY | 2021-04-13 04:43 | CCD | Continuity of Care Document ---
Author Author [facility] Address [address] [place] [address] Phone Care Team Providers Care Director Rehabilitation Program Name Role Phone SOFÍA CASANOVA PCP Chief Complaint and Reason for Visit Reason for Visit ABDOMINAL PAIN Health Concerns Health Concerns may be documented in an alternate section. Allergies, Adverse Reactions, Alerts No allergy information available. Social History Assigned Sex Female Problems No problem information available. Medications No medication information available. Immunizations No Immunization Information Available Medical Equipment No Medical Equipment Information available Procedures Procedure Date Performed Status ABD/PEL WITH ORAL ONLY March 16, 2021 completed Relevant Diagnostic Tests and/or Laboratory Data Laboratory Results Test Date/Time Result Interpretation Reference Range Result Comment Performing Site White Blood Count March 16, 2021 5:00a m 7.8 4.0-10.0 [facility], [address] [place] [address] Red Blood Count March 16, 2021 5:00am 4.22 4.00-5.50 [facility], [address] [place] [address]65 Hemoglobin March 16, 2021 5:00am 13.6 12.0-16.0 [facility], [address] [place] [address] Hematocrit March 16, 2021 5:00am 40.1 36.0-48.8 [facility], [address] [place] [address] Mean Corpuscular Volume March 5:00am 95.0 80-96 [facility], 4 [facility] [address] Mean Corpuscular Hemoglobin March 16, 2021 5:00am 32.2 27.0-31.0 [facility], 4 [facility] 05691 Mean Corpuscular Hgb Concent Diff No vember 2020 5:00am 33.9 32.0-36.0 [facility], [address] [facility] [address] Red Cell Distribution Width March 16, 2021 5:00am 12.2 10.0-14.5 [facility], 4 [facility] [address] Platelet Count March 16, 2021 5:00am 240 172-450 [facility], 4 [facility] [address]63 Mean Platelet Volume March 16 021 5:00am 10.4 9.0-13.0 [facility], 4 [facility] [address] Granulocytes % (Auto) March 16, 2021 5:00am 64.7 50-80.0 [facility], 4 [facility] 13983 Immature Granulocytes % March 5:00am 0.1 0.0-0.2 [facility], 4 [facility] [address] Lymphocytes % March 16, 2021 5:00am 26.1 25.0-50.0 [facility], 4 [facility] 11128 Monocytes % March 16, 2021 5:00am 7.4 2.0-10.0 [facility], 4 [facility] [address]695 Eosinophils % March 16, 2021 5:00am 1.3 0-5.0 [facility], 4 [facility] 114[address] Basophils % March 16, 2021 5:00am 0.4 0.0-2.0 [facility], 4 [facility] [address]473 Granulocytes # March 16, 2021 5:00am 5.0 2.0-8.00 [facility], 4 [facility] [address]309 Immature Granulocytes # March 5:00am 0.0 0.0-0.2 [facility], 4 [facility] [address]2011 Lymphocytes # March 16, 2021 5:00am 2.0 1.0-5.0 [facility], 4 [facility] [address] Monocytes # March 16, 2021 5:00am 0.6 0.10-1.20 [facility], 4 [facility] [address] Eosinophils # March 16, 2021 5:00am 0.1 0.0-0.5 [facility], 4 [facility] 268[address] Basophils # March 16, 2021 5:00am 0.0 0.0-0.2 [facility], 4 [facility] [address] Urine Color March 16, 2021 5:18am DARK [facility] Main Lab, 4 [facility] [address] Urine Appearance March 16, 2021 5:18am CLEAR [facility], 4 [facility] [address]1313 Urine Glucose March 16, 2021 5:18am NEGATIVE NEGATIVE [facility], 4 [facility] 51997 Urine Bilirubin March 16, 2021 5:18am NEGATIVE NEGATIVE [facility], 4 [facility] 91634 Urine Ketones March 16, 2021 5:18am 5(TRACE) NEGATIVE [facility], 4 [facility] [address] Specific [place] March 16, 2021 5:18am >= 1.030 1.005-1.030 [facility], 4 [facility] 80968 Urine Blood March 16, 2021 5:18am NEGATIVE NEGATIVE [facility], 4 [facility] 44774 Urine pH March 16, 2021 5:18am 5.5 5.0-9.0 [facility], 4 [facility] [address]35 Urine Protein March 16, 2021 5:18am NEGATIVE NEGATIVE [facility], 4 [facility] [address] Urine Urobilinogen March 16 5:18am NORMAL(0.2-1) 0-1 [facility], 4 [facility] 24388 Urine Nitrite March 16, 2021 5:18am NEGATIVE NEGATIVE [facility], 4 [facility] [address]121 Urine Leukocyte Esterase March 5:18am NEGATIVE NEGATIVE [facility], 4 [facility] [address]35 Glucose Level March 16, 2021 5:00am 92 74-106 [facility], 4 [facility] 68478 Lactic Acid Level March 16, 2021 5:00a m 0.6 0.4-2.0 [facility], 4 [facility] [address]32 Blood Urea Nitrogen March 16 5:00am 9 7-18 [facility], 4 [facility] [address]1485 Creatinine March 16, 2021 5:00am 0.74 0.55-1.02 [facility], 4 [facility] 62681 Sodium Level March 16, 2021 5:00am 139 136-145 [facility], 4 [facility] [address] Potassium Level March 16, 2021 5:00am 3.4 3.5-5.1 [facility], 4 [facility] [address] Chloride Level March 16, 2021 5:00am 100 98-107 [facility], 4 [facility] [address] Carbon Dioxide Level March 16 021 5:00am 28 21-32 [facility], 4 [facility] [address] Calcium Level March 16, 2021 5:00am 9.4 8.5-10.1 [facility], 4 [facility] 15857 Anion Gap March 16, 2021 5:00am 11.0 5-12 [facility], 4 [facility] [address] Estimated GFR (MDRD) March 16 021 5:00am >90 GF R IS CALCULATED IN mL/min/1.73m2 NORMAL FUNCTION: >90MILDLY DECREASED: 60-89MILDY TO MODERATELY DECREASED: 45-59 MODERATELY TO SEVERELY DECREASED: 30-44SEVERELY DECREASED: 15-29RENAL FAILURE: <15 [facility], 4 [facility] [address] Aspartate Amino Transf (AST/SGOT) No vember 2020 5:00am 12 15-37 [facility], 4 [facility] [address]682 Alanine Aminotransferase (ALT/SGPT) March 16, 2021 5:00am 19 14-59 [facility], [address] [facility] [address] Alkaline Phosphatase March 16 2 021 5:00am 74 46-116 [facility], 4 [facility] 95793 Total Bilirubin March 16, 2021 5:00am 0.4 0.2-1.0 [facility], 4 [facility] 83488 Total Protein March 16, 2021 5:00am 8.2 6.4-8.2 [facility], 4 [facility] 81086 Albumin March 16, 2021 5:00am 4.4 3.4-5.0 [facility], 4 [facility] [address]32[address] Urine HCG, Qualitative March 16, 2021 5:18am NEGATIVE NEGATIVE [facility], 4 [facility] [address] Vital Signs No vital signs result information available. Insurance Providers Guarantor JOSE CAR Address [address] [address] Contact Info. Home Phone: Payer Policy Id Coverage Id Subscriber's Name Subscriber Id Effective Date Expiration Date [facility] [id number] JOSE CAR Encounters Encounter Location(s) Ar rival/Admit Date Discharge/Depart Date Provider(s) Departed Emergency [facility] March 16, 2021 4:45am March 16, 2021 8:20am NINA RIOS Functional Status No Functional Status information available Mental Status No Mental Status Information Available Assessments No Assessments Information Available Goals Goals may be documented in an alternate section.
--- OUTSIDE RECORDS SUMMARY | 2021-04-13 04:43 | CCD ---
Author Author [facility] Organization [facility] Address Unknown Phone Unavailable Care Team Providers Care Microcomputer Support Specialist Name Role Phone Kathy Aiken Unavailable PROBLEMS Type Condition ICD9-CM Code [id number] Code Onset Dates Condition S tatus W/U Status Risk SNOMED Code Notes Problem Adnexal cyst N94.9 Active confirmed 7226144 [id number] ALLERGIES No Known Allergies ENCOUNTERS from 1995 to 2021-03-19 Encounter Location Date Provider Diagnosis [facility] [address] [facility] [phone] [place] [address] Mar, Kathy Aiken Right ovarian cyst N83.201 IMMUNIZATIONS No Information SOCIAL HISTORY Tobacco Use: Social History Observation Description Date Details (start date - stop date) Current Smoker Sex Assigned At : Social History Observation Description Sex Assigned At Unknown Education: Question Answer Notes Level of Education: High School Audit Question Answer Notes Total Score: 3 Interpretation: Alcohol Education Language: Question Answer Notes Languages spoken: Yi Presybeterian: Question Answer Notes Presybeterian No sikh beliefs that would impact health care. Domestic [...] effects, education provided 11/01/2020 REASON FOR REFERRAL from 1995 to 2021-03-19 Reason 26 y old F with persistent R LQ abd pain; recent CT abd/pelvis and pelvic US show right hemorrhagic ovarian cyst. Diagnosis 1 Right ovarian cyst (N83.201) Referral Organization [facility] Otf Referring Provider First Name Kathy Referring Provider Last Name Nelli Referring Provider Specialty Family Medicine Referred Organization [facility] Referred Provider JARET,([facility]) Referred Address [address] [place] [address],[facility] [place] [phone] Referred Provider Specialty OB - Gynecology Referral Priority Routine General Notes Gillian Bush 03/14/2021 8:5 3:07 AM > Sent VITAL SIGNS Weight 169.0 lbs Mar, Weight-kg 76.66 kg Mar, Height 68 in Mar, BMI 25.69 kg/m2 Mar, Heart Rate 96 /min Mar, Respiratory Rate 18 /min Mar, Temperature 97.9 degrees Fahrenheit Mar, Oximetry 97 Mar, Blood pressure systolic 123 mm Hg Mar, Blood pressure diastolic 72 mm Hg Mar, MEDICATIONS Medication SIG (Take, Route, Frequency, Duration) Notes Start Da te End Date Status Ibuprofen 800 MG 1 tablet with food or milk as needed Ora lly Three times a day Active Tylenol 325 MG 1 tablet as needed Orally every 4 hrs 200mg tid Active PROCEDURES No Information RESULTS No Results REASON FOR VISIT ER F/U MEDICAL (GENERAL) HISTORY Type Description Date Surgical History 2017 Surgical History Cholecystectomy 2017 Surgical History Ectopic 2019 Surgical History Exploratory laparoscopy - [facility] 10/15/20 Hospitalization History Exhaustion/Dehydration 2017 Goals Section No Information Health Concerns No Information MEDICAL EQUIPMENT No Information MENTAL STATUS No Information FUNCTIONAL STATUS No Information ASSESSMENTS Encounter Date Diagnosis Assessment Notes Treatment Notes Treatm ent Clinical Notes Mar, Right ovarian cyst (ICD-10 - N83.201) Patient reports persistent severe pain in the right lower quadrant. Recent imaging (CT abdomen pelvis with IV contrast, US pelvic non-OB complete, and x- ray abdomen) from ER visit on 03/10/2021 did not identify any acute abdominal or pelvic abnormality. However, there is a right hemorrhagic ovarian cyst identified measuring 3.7 x 3.6 x 3.7 cm in size. Patient remains afebrile with vitals within normal range. Will refer to LUMBER STACKER OPERATOR for further evaluation and management. PLAN OF TREATMENT Treatment Notes Assessment Notes Clinical Notes Right ovarian cyst Patient reports pers istent severe pain in the right lower quadrant. Recent imaging (CT abdomen pelvis with IV contrast, US pelvic non-OB complete, and x-ray abdomen) from ER visit on 03/10/2021 did not identify any acute abdominal or pelvic abnormality. However, there is a right hemorrhagic ovarian cyst identified measuring 3.7 x 3.6 x 3.7 cm in size. Patient remains afebrile with vitals within normal range. Will refer to LUMBER STACKER OPERATOR for further evaluation and management. Referrals Referral Date Details 26 y old F with persistent R LQ abd pain; recent CT abd/pelvis and pelvic US show right hemorrhagic ovarian cyst., ([facility]) [facility], [address] [facility], [place], [phone], Next Appt Details prn Reason:f/u as needed Provider Name:Jas Collier, 09:20:00 AM, [address] [facility], , [place], [phone], Follow Up:prnf/u as needed Insurance Providers Payer Name Payer Address Payer Phone Insured Name Patient Relati onship to Insured Coverage Start Date Coverage End Date [place] [phone] JOSE CAR
--- OUTSIDE RECORDS SUMMARY | 2021-04-13 04:44 | CCD ---
Author Author [facility] Organization [facility] Address Unknown Phone Unavailable Care Team Providers Care Scroll Saw Operator Name Role Phone Nwogu, U John DO [...] Unavailable Nwogu, U John DO Unavailable Unavailable Jocelyne, M Kathy MD Unavailable Unavailable Dante Aiken MD Unavailable [...] Dante Aiken MD Unavailable Unavailable LAROCK, Jie FERNANDA EARLY CHILDHOOD EDUCATOR AIDE Unavailable Unavailable LAROCK, J FERNANDA EARLY CHILDHOOD EDUCATOR AIDE Unavailable Unavailable LAROCK, J FERNANDA EARLY CHILDHOOD EDUCATOR AIDE Unavailable Unavailable LAROCK, J FERNANDA EARLY CHILDHOOD EDUCATOR AIDE Unavailable Unavailable LAROCK, J FERNANDA EARLY CHILDHOOD EDUCATOR AIDE Unavailable Unavailable LAROCK, J FERNANDA EARLY CHILDHOOD EDUCATOR AIDE Unavailable Unavailable LAROCK, J FERNANDA EARLY CHILDHOOD EDUCATOR AIDE Unavailable Unavailable LAROCK, J FERNANDA EARLY CHILDHOOD EDUCATOR AIDE Unavailable Unavailable LAROCK, J FERNANDA EARLY CHILDHOOD EDUCATOR AIDE Unavailable Unavailable LAROCK, J FERNANDA EARLY CHILDHOOD EDUCATOR AIDE Unavailable Unavailable LAROCK, J FERNANDA EARLY CHILDHOOD EDUCATOR AIDE Unavailable Unavailable LAROCK, J FERNANDA EARLY CHILDHOOD EDUCATOR AIDE Unavailable Unavailable LAROCK, J FERNANDA EARLY CHILDHOOD EDUCATOR AIDE Unavailable Unavailable LAROCK, J FERNANDA EARLY CHILDHOOD EDUCATOR AIDE Unavailable Unavailable LAROCK, J FERNANDA EARLY CHILDHOOD EDUCATOR AIDE Unavailable Unavailable LAROCK, J FERNANDA EARLY CHILDHOOD EDUCATOR AIDE Unavailable Unavailable LAROCK, J FERNANDA EARLY CHILDHOOD EDUCATOR AIDE Unavailable Unavailable LAROCK, J FERNANDA EARLY CHILDHOOD EDUCATOR AIDE Unavailable Unavailable LAROCK, J FERNANDA EARLY CHILDHOOD EDUCATOR AIDE Unavailable Unavailable LAROCK, J FERNANDA EARLY CHILDHOOD EDUCATOR AIDE Unavailable Unavailable LAROCK, J FERNANDA EARLY CHILDHOOD EDUCATOR AIDE Unavailable Unavailable LAROCK, J FERNANDA EARLY CHILDHOOD EDUCATOR AIDE Unavailable Unavailable SYMENOLuis A G LAURAOPHER PA Unavailable Unavailable SYMENOW G DEBORAER PA Unavailable Unavailable SYMENOW G CHRISTOPHER PA Unavailable Unavailable SYMENOW G CHRISTOPHER PA Unavailable Unavailable SYMENOW, G CHRISTOPHER PA Unavailable Unavailable SYMENOW G CHRISTOPHER PA Unavailable Unavailable SYMENOW G CHRISTOPHER PA Unavailable Unavailable SYMENOW G CHRISTOPHER PA Unavailable Unavailable SYMENOW G CHRISTOPHER PA Unavailable Unavailable SYMENOW, G CHRISTOPHER PA Unavailable Unavailable SYMENOW, G CHRISTOPHER PA Unavailable Unavailable SYMENOW, G CHRISTOPHER PA Unavailable Unavailable SYMENOW, G CHRISTOPHER PA Unavailable Unavailable SYMENOW, G CHRISTOPHER PA Unavailable Unavailable SYMENOW, G CHRISTOPHER PA Unavailable Unavailable SYMENOW, G CHRISTOPHER PA Unavailable Unavailable OSWALD, L JENNY MD Unavailable [...] U John DO Unavailable Unavailable Chan, Sherrie SarabiaMira PA Unavailable Unavailable Chan, Sherrie Mira PA Unavailable Unavailable Chan, Sherrie Mira PA Unavailable Unavailable Cahn, Sherrie Baronen PA Unavailable Unavailable Chan, Sherrie Mira PA Unavailable Unavailable Chan, Sherrie Meyers PA Unavailable Unavailable Chan, Sherrie Mira PA Unavailable Unavailable Chan, Sherrie Mira PA Unavailable Unavailable Chan, Sherrie Mira PA Unavailable Unavailable Chan, Sherrie Miar PA Unavailable Unavailable TURRIN, TJ Unavailable Unavailable [...] Unavailable Unavailable Dodard, Sage DO Unavailable Unavailable Robertshaw, Doug Unavailable [phone] Robertshaw, Doug Unavailable [phone] Robertshaw, Doug Unavailable [phone] Robertshaw, Doug Unavailable [phone] Robertshaw, Doug Unavailable [phone] Robertshaw, Doug Unavailable [phone] [facility] Unavailable Unavailable WOLFENDEN, T NINA PA Unavailable Unavailable WOLFENDEN, T NINA PA Unavailable Unavailable WOLFENDEN, T NINA PA Unavailable Unavailable WOLFENDEN, T NINA PA Unavailable Unavailable WOLFENDEN, T NINA PA Unavailable Unavailable WOLFENDEN, T NINA PA Unavailable Unavailable WOLFENDEN, T NINA PA Unavailable Unavailable WOLFENDEN, T NINA PA Unavailable Unavailable WOLFENDEN, T NINA PA Unavailable Unavailable WOLFENDEN, T NINA PA Unavailable Unavailable WOLFENDEN, T NINA PA Unavailable Unavailable WOLFENDEN, T NINA PA Unavailable Unavailable WOLFENDEN, T NINA PA Unavailable Unavailable WOLFENDEN, T NINA PA Unavailable Unavailable WOLFENDEN, T NINA PA Unavailable Unavailable WOLFENDEN, T NINA PA Unavailable Unavailable WOLFENDEN, T NINA PA Unavailable Unavailable WOLFENDEN, T NINA PA Unavailable Unavailable WOLFENDEN, T NINA PA Unavailable Unavailable WOLFENDEN, T NINA PA Unavailable Unavailable WOLFENDEN, T NINA PA Unavailable Unavailable WOLFENDEN, T NINA PA Unavailable Unavailable WOLFENDEN, T NINA PA Unavailable Unavailable WOLFENDEN, T NINA PA Unavailable Unavailable WOLFENDEN, T NINA PA Unavailable Unavailable WOLFENDEN, T NINA PA Unavailable Unavailable WOLFENDEN, T NINA PA Unavailable Unavailable WOLFENDEN, T NINA PA Unavailable Unavailable WOLFENDEN, T NINA PA Unavailable Unavailable WOLFENDEN, T NINA PA Unavailable Unavailable CHANLIECCO, C JOHN MD Unavailable [...] is protected by Article 27-F of the [facility] Public Health law. If you continue you may have access to information: Regarding HIV / AIDS; Provided by facilities licensed or operated by the [facility] Office of Mental Health; or Provided by the [facility] Office for People With Developmental Disabilities. If such information is present, then the following [facility] mandated warning applies: This information has [...] law may result in a fine or halfway sentence or both. A general authorization for the release of medical or other information is NOT sufficient authorization for further disc losure. Allergies and Adverse Reactions Type Description Substance Reaction Status Data Source(s ) No Known Drug Allergies No Known Drug Allergies Health System Propensity to adverse reactions BEE STING BEE STING ANAPHYLAXIS [facility] Food allergy COCONUT COCONUT ITCH[facility] Food allergy WATERMELON WATERMELON ITCHING [facility] Encounters Encounter Providers Location Date Indications Data Source(s ) Emergency Attender: JENNY AKERS MDConsultant: Kathy dave MD 03/31/2021 06:31:00 PM EST - 03/31/2021 11:42:00 PM EST [facility] System Patient discharged. Emergency Attender: NINA Doveerrer: Kathy Aiken MD EMERGENCY ROOM-ER 03/16/2021 09:26:00 AM EDT - 03/16/2021 12:20:00 PM EDT [facility] Patient discharged. Unknown [address] [facility] [address] 02/27/2021 12:00:00 AM EDT [facility] (Pending sale to [facility]) Outpatient Attender: John Johnson DOConsultant: Kathy barrientos MD 12/20/2020 01:15:00 PM EDT - 12/20/2020 01:15:00 PM EDT Health System Outpatient Attender: John Johnson [facility] 12/09 01:15:00 PM EDT [facility] Emergency Attender: TJ TURNERConsultant: Kathy dave MD 12/19/2020 01:35:00 PM EDT - 12/19/2020 04:10:00 PM EDT [facility] System Patient discharged. Emergency Attender: JENNY AKERS MDConsultant: Kathy dave MD 12/18/2020 10:14:00 PM EDT - 12/19/2020 04:00:00 AM EDT [facility] System Patient discharged. Emergency Attender: JOHN ANGULO MDConsultant: Rojas Aiken MD 12/02/2020 03:34:00 PM EDT - 12/02/2020 06:51:00 PM EDT [facility] Patient discharged. [place] [address] [facility] [address] 11/01/2020 12:00:00 AM EDT eCW1 (Pending sale to [facility]) Emergency Attender: BRIDGER BLANCO PAReferrer : Kathy Aiken MD EMERGENCY ROOM-EMERGENCY ROOM 10/17/2020 11:40:00 PM EDT - 10/17/2020 11:40:00 PM EDT [facility] Patient discharged. Outpatient Attender: Sage Anguloultant: Kathy meza MD 10/15/2020 07:45:00 AM EDT - 10/15/2020 12:24:00 PM EDT [facility] System Patient discharged. Outpatient Attender: Sage SULLIVANonsultant: Kathy meza MD 10/10/2020 10:41:00 AM EDT - 10/10/2020 11:41:00 AM EDT [facility] System Patient discharged. Outpatient Attender: Brent WALLER 10/06/19 09:54:06 AM EDT - 10/05/2020 10:33:25 AM EDT [facility] ([facility] ) Outpatient Attender: Sage Magañaant: Kathy meza MD 10/04/2020 01:18:13 PM EDT - 10/05/2020 09:05:00 AM EDT [facility] System Patient discharged. Outpatient Attender: Doug Quevedo 09/26 03:22:43 PM EDT - 09/26/2020 04:56:57 PM EDT [facility] ([facility] ) Outpatient Attender: FERNANDA FORMAN NP 12/2020 03:06:47 PM EDT - 09/15/2020 04:55:09 PM EDT [facility] ([facility] ) Emergency Attender: TJ Skysultant: Kathy dave MD 08/27/2020 10:54:00 PM EDT - 08/28/2020 02:23:00 AM EDT Health System Patient discharged. Outpatient Attender: Brent WALLER 08/28/19 01:59:07 PM EDT - 08/27/2020 02:35:23 PM EDT [facility] ([facility] ) Emergency Attender: JENNYToby AKERS MDConsultant: [facility] 08/14/2020 06:54:00 PM EDT - 08/14/2020 08:29:00 PM EDT Health System Patient discharged. Outpatient Attender: Mira morales 07/10/2020 12:00:00 PM EST [facility] ([facility]) Outpatient Attender: Vernon WALLER 01:23:00 PM EST - 07/04/2020 01:23:00 PM EST Health System Immunizations Vaccine Date Status Description Data Source(s) COVID-19 VACCINE Pfizer 02/20/2021 12:00:00 AM EDT completed [facility] Vaccine Series Complete: YESThis Data wa s Submitted to [facility] [employer]. COVID-19 VACCINE Pfizer 01/30/2021 12:00:00 AM EDT completed [facility] Vaccine Series Complete: NOThis Data was Submitted to [facility] [employer]. Medications Medication Brand Name Start Date Product Form Dose Route Admi nistrative Instructions Pharmacy Instructions Status Indications Reaction Description Data Source(s) Rocephin/Ceftriaxone Sodium Injection Per 250 MG 07/10 12:00:00 AM EST completed [facility] ([facility]) Medication administered onsite No Active Medications 07/10/2020 12:00:00 AM EST completed [facility] ([facility]) doxycycline hyclate 100 MG Oral Capsule Doxycycline Hyclate 07/10/2020 12:00:00 AM EST active [facility] ([facility]) Insurance Providers Payer name Policy type / Coverage type Policy ID Covered alliance party ID Covered alliance party's relationship to viveros Policy Viveros Plan Information [facility] [id number] [facility] [id number] [facility] [id number] [facility] Health Plan / [id number] Self [id number] Needs Workers Comp Information [employer] Health Claim [id number] Employee [id number] [facility] [id number] 18 [id number] [facility] [place] [id number] 01 [id number] [facility] [id number] [facility] UNAVAILABLE 01 UNAVAILABLE [facility] SAULT [id number] H [id number] [facility] [id number] [facility] SAULT [id number] H [id number] [facility] [id number] 18 [id number] [facility] [id number] S [id number] [facility] [id number] 01 [id number] Problems, Conditions, and Diagnoses Code Display Name Description Problem Type Effective Dates Data Source(s) [id number] Personal history of nicotine dependence Personal history of nicotine dependence Diagnosis 03/31/2021 06:31:00 PM [facility] Z8742 Personal history of other diseases of th e female genital tract Personal history of other diseases of the female genital tract Diagnosis 03/31/2021 06:31:00 PM [facility] R1030 Lower abdominal pain, unspecified Lower abdomina l pain, unspecified Diagnosis 03/31/2021 06:31:00 PM [facility] R102 Pelvic and perineal pain Pelvic and perineal pain Diag nosis 03/31/2021 06:31:00 PM [facility] Z79.899 Other senior care (current) drug therapy [facility] (CURRENT) DRUG THERAPY Diagnosis 03/16[facility]2021 09:26[facility]1 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) use of non-steroidal anti-inflammatories (NSAID) 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) USE OF NON-STEROIDAL NON-INFLA Diagnosis 03/16/20 09:26:00 AM [facility] Z90.49 Acquired absence of other specified part s of digestive tract ACQUIRED ABSENCE OF OTHER SPECIFIED PARTS OF DIGES Diagnosis 03/16/2021 09:26:0 0 AM [facility] F17.210 Nicotine dependence, cigarettes, uncompl icated NICOTINE DEPENDENCE, CIGARETTES, UNCOMPLICATED Diagnosis 03/16/2021 09:26:00 AM [facility] N83.01 FOLLICULAR CYST OF RIGHT OVARY FOLLICULAR CYST OF RIGH T OVARY Diagnosis 03/16/2021 09:26:00 AM [facility] R10.31 Right lower quadrant pain RIGHT LOWER QUADRANT PAIN Di agnosis 03/16/2021 09:26:00 AM [facility] R20406 Nicotine dependence, cigarettes, uncompl icated Nicotine dependence, cigarettes, uncomplicated Diagnosis 12/19/2020 01:35:[address] [facility] [id number] Unspecified ovarian cyst, left side Unspecified ovarian cyst, left side Diagnosis 12/19/2020 01:35:00 PM [facility] N9489 Other specified conditions a ssociated with female genital organs and menstrual cycle Other specified conditions associated wi th female genital organs and menstrual cycle Diagnosis 12/18/2020 10:14:00 PM [facility] R1032 Left lower quadrant pain Left lower quadrant pain Diag nosis 12/18/2020 10:14:00 PM [facility] Q50995 Unspecified place in unspeci fied non-institutional (private) residence as the place of occurrence of the external cause Unspecified place in unspecified non-institutional (private) residence as the place of occurrence of the external cause Diagnosis 12/02/2020 03:34:00 PM [facility] [id number] Contact with other sharp obj ect(s), not elsewhere classified, initial encounter Contact with other sharp object(s), not elsewhere classified, initial encounter Diagnosis 12/02/2020 03:34:00 PM [facility] Z23 Encounter for immunization Encounter for immunization Diagnosis 12/02/2020 03:34:00 PM [facility] X89103 Nicotine dependence, other tobacco produ ct, uncomplicated Nicotine dependence, other tobacco product, uncomplicated Diagnosis 12/02 03:34:00 PM [facility] [id number] Abrasion, right foot, initial encounter Abrasion, right foot, initial encounter Diagnosis 12/02/2020 03:34:00 PM [facility] [id number] Unspecified injury of right foot, initia l encounter Unspecified injury of right foot, initial encounter Diagnosis 12/02/2020 03:34:00 PM [facility] G89.18 Other acute postprocedural pain OTHER ACUTE POST PROCEDURAL PAIN Diagnosis 10/17/2020 11:40:00 PM [facility] N13.2 Hydronephrosis with renal and ureteral c alculous obstruction HYDRONEPHROSIS WITH RENAL AND URETERAL CALCULOUS O Diagnosis 01/2021 11:40:00 PM [facility] R10.2 Pelvic and perineal pain PELVIC AND PERINEAL PAIN Diag nosis 10/17/2020 11:40:00 PM [facility] W94685 Nicotine dependence, unspecified, uncomp licated Nicotine dependence, unspecified, uncomplicated Diagnosis 10/15/2020 07:45:00 AM EDT [facility] G8929 Other chronic pain Other chronic pain Diagnosis 11/2020 07:45:00 AM EDT [facility] N809 Endometriosis, unspecified Endometriosis, unspecified Diagnosis 10/15/2020 07:45:00 AM EDT [facility] 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) Diagnosis 10/15/2020 07:45:00 AM EDT [facility] N7011 Chronic salpingitis Chronic salpingitis Diagnosis 0 10/15/2020 07:45:00 AM [facility] Z1152 ENCOUNTER FOR SCREENING FOR COVID-19 ENCOUNTER F OR SCREENING FOR COVID-19 Diagnosis 10/10/2020 10:41:00 AM [facility] G83891 Encounter for other preprocedural examin ation Encounter for other preprocedural examination Diagnosis 10/05/2020 08:15:00 AM EDT [facility] S28471 Elevated white blood cell count, unspeci fied Elevated white blood cell count, unspecified Diagnosis 08/27/2020 10:54:00 PM EDT [facility] R7402 Elevation of levels of lactic acid dehyd rogenase [LDH] Elevation of levels of lactic acid dehydrogenase [LDH] Diagnosis 08/27/2020 10:54:00 PM E [facility] B349 Viral infection, unspecified Viral infection, unspecif ied Diagnosis 08/27/2020 10:54:00 PM EDT [facility] System R1012 Left upper quadrant pain Left upper quadrant pain Diag nosis 08/27/2020 10:54:00 PM EDT [facility] R1031 Right lower quadrant pain Right lower quadrant pain Di agnosis 08/14/2020 06:54:00 PM EDT [facility] N94.9 [id number] Adnexal cyst Problem 11/01/2020 12:00:00 AM EDT eCW1 ([facility]) Surgeries/Procedures Procedure Description Date Indications Data Source(s) OFFICE OUTPATIENT NEW 30 MINUTES 12/20/2020 12:00:00 A M EDT [facility]) Therapeutic, Prophylactic Or Diagnostic Injection Subq/Im 07/10/2020 12:00:00 AM EST [facility] ([facility]) Results ID Date Data Source [id number] 04/02/2021 06:34:00 AM EST [facility] [address] [place] [address] PHONE: [phone] FAX: [phone] Name .................. : JOCELINE GARCIA Chan Acct Number.................. : [id number] ROOM. ................. : [address] Number ................... : [id number] Stay type ............. : E/R Discharge Date......... ... : 03/31/21 Admit Date ......... : 03/31/21 Admit Phys .................... : COONEYNORM Date of ....... : 1995 Family Phys ................... : JOCELYNE VEGA Phone .................. : [phone] Age ................................ : 26 Film# .................. .:[id number] Sex ................................. : F Unsigned transcriptions are preliminary reports and do not represent a medical or legal document PELVIC [id number] COMPLETE:03/31/21 22:54 ADB 43402 Reason(s): recent dx of pelvic congestion syndrome ULTRASOUND PELVIS INDICATION: Pelvic congestion syndrome. Per technologist history of ovarian cysts and endometriosis COMPARISON: 12/19/20 TECHNIQUE: Ultrasound of the pelvis is performed using transabdominal technique. FINDINGS: Uterus: Size 10.1 x 4.0 x 5.2 cm. No focal uterine masses. Endometrium: thickness is 10 mm. Right ovary: 3.0 x 1.9 x 2.8 cm. No ovarian or adnexal masses. Color flow imaging shows blood flow to the ovary. Left Ovary: 3.4 x 2.4 x 2.9 cm. 2.2 cm left adnexal cyst with minimal internal echoes. Color flow imaging shows blood flow to the ovary. No free fluid. bladder volume IMPRESSION: Minimally complex left adnexal cyst corresponding to CT finding. Electronically Reviewed and Signed By Lance Rueda MD , 04/02/21 06:34, SCB Page 1 [address] 2 [place] [address] PHONE: [phone] FAX: [phone] Name .................. : JOCELINE GARCIA Chan Acct Number.................. : [id number] ROOM. ................. : TR-03 MR Number ................... : [id number] Stay type ............. : E/R Discharge Date......... ... : 03/31/21 Admit Date ......... : 03/31/21 Admit Phys .................... : COONEYNORM Date of ....... : 1995 Family Phys ................... : JOCELYNE VEGA Phone .................. : [phone] Age ................................ : 26 Film# .................. .:[id number] Sex ................................. : F Unsigned transcriptions are preliminary reports and do not represent a medical or legal document PELVIC [id number] COMPLETE:03/31/21 22:54 ADB 65796 Reason(s): recent dx of pelvic congestion syndrome Transcribe Initials: RIANNA , Transcribe Date: 04/01/21 11:49, Dictation Date: Copy for: EMERGENCY DEPT via mode Copy for: 710 MED REC DISCHARGED Page 2 of 2 Name Value Range Interpretation Code Description Data Rachel rce(s) Supporting Document(s) ID Date Data Source [id number] 04/02/2021 06:34:00 [place] [address] PHONE: [phone] FAX: [phone] Name .................. : JOCELINE Nguyễn Acct Number.................. : [id number] ROOM. ................. : TR-03 Number ................... : [id number] Stay type ............. : E/R Discharge Date......... ... : 03/31/21 Admit Date ......... : 03/31/21 Admit Phys .................... : COONEYNORM Date of ....... : 1995 Family Phys ................... : JOCELYNE GI Phone .................. : [phone] Age ................................ : 26 Film# .................. .:[id number] Sex ................................. : F Unsigned transcriptions are preliminary reports and do not represent a medical or legal document CT ABD & PELVIS W/ IV ONLY [id number] COMPLETE:03/31/21 21:07 MWB 78487 Reason(s): Abdominal Pain CT ABDOMEN AND PELVIS WITH IV CONTRAST INDICATION: Abdominal pain COMPARISON: 12/19/20 IV CONTRAST: 75 cc Isovue-370 One or more of the following dose reduction techniques were utilized in effectively lowering the radiation dose for this examination: Automated Exposure Control, Adjustment of the mA and/or kV according to patient size, or Iterative reconstruction. FINDINGS: LUNG BASES: Minimal basilar atelectasis/scar. No pleural effusions. LIVER/BILIARY: Normal liver. Cholecystectomy. SPLEEN: Normal. PANCREAS: Normal. ADRENALS: Normal bilaterally. KIDNEYS/: Normal kidneys without hydronephrosis. Grossly normal bladder. No abnormal enlargement of the uterus or right adnexa. 20 mm left adnexal cyst. Resolution of previously noted larger complex left adnexal structure. Trace of free fluid which may be physiologic or reactive. Mild prominence of left gonadal vein system. BOWEL/GI: Normal appendix. No diverticulitis or colitis. No free air. Page 1 of 2 [facility] [address] [address] PHONE: [phone] FAX: [phone] Name .................. : JOCELINE Nguyễn Acct Number.................. : [id number] ROOM. ................. : TR-03 MR Number ................... : [id number] Stay type ............. : E/R Discharge Date......... ... : 03/31/21 Admit Date ......... : 03/31/21 Admit Phys .................... : COONEYNORM Date of ....... : 1995 Family Phys ................... : JOCELYNE VEGA Phone .................. : [phone] Age ................................ : 26 Film# .................. .:[id number] Sex ................................. : F Unsigned transcriptions are preliminary reports and do not represent a medical or legal document CT ABD & PELVIS W/ IV ONLY [id number] COMPLETE:03/31/21 21:07 MWB 63334 Reason(s): Abdominal Pain NODES/RETROPERITONEUM: No adenopathy. No AAA. SKELETAL: Small sclerotic focus left sacrum likely benign bone island. IMPRESSION: Left adnexal cyst/follicle and small amount of free pelvic fluid which may be physiologic. Previously noted larger left adnexal structure has resolved. Cholecystectomy. Mildly prominent left gonadal vein system which could represent gonadal vein reflux. Electronically Reviewed and Signed By Lance Rueda MD , 04/02/21 06:34, SCB Transcribe Initials: DZ , Transcribe Date: 04/01/21 11:47, Dictation Date: Copy for: EMERGENCY DEPT via modem Copy for: 710 MED REC DISCHARGED Page 2 of 2 Name Value Range Interpretation Code Description Data Rachel rce(s) Supporting Document(s) ID Date Data Source [id number] 03/31/2021 06:31:00 PM EST [facility] [address] [place] [address] Phone #: [phone] [phone] [phone] 03/31/2021 18:26 Patient: ZARIA CAR Sex: F : 1995 Age: 26yWEIGHT:74.8 kg (S) HEIGHT:69 inches (S) BMI:24.4ALLERGIES: No Known Drug AllergyCHIEF COMPLAINT: pelvic painDIAGNOSIS: Right lower quadrant, suprapubic and left lower quadrant abdominal pain.No acute abdominalpain.LAB ORDERSOrder Description Priority Entered Acknowledged InitialedCBC w Diff STAT 18:36 03/31/2021 18:38 Oswald Moore Norma MD; Bhavna GriffithCMP STAT 18:36 03/31/2021 18:38 Oswald Moore Norma MD; Bhavna GriffithLactic Acid STAT 18:36 03/31/2021 18:38 Oswald Moore Norma MD; Bhavna GriffithLipase STAT 18:36 03/31/2021 18:38 Oswald Moore Norma MD; Bhavna GriffithUA Ref trae to UA STAT 18:36 03/31/2021 Ack'd: 18:38 18:49 Vinita Akers, Jenny MD; Bhavna Moore supervisor statement clerks, Deric ER R.N. [id number] Serum Qual STAT 18:36 03/31/2021 18:38 Oswald Moore Norma MD; Bhavna GriffithDIAGNOSTIC STUDY ORDERSOrder Description Priority Entered Acknowledged InitialedCT Abd PEL W/ IV STAT 19:49 03/31/2021 Ack'd: 19:58 20:09 BurnhamContrast Only Jenny Akers MD; Bhavna Moore supervisor statement clerks, Deric ER(Oxygen?(No)) R.NAzul Tech1(IV?(Yes)) NOTES: periumbilical and rlq pain Reason for Study: Abdominal PainUS Pelvis STAT 21:17 03/31/2021 Ack'd: 21:17 22:20 Yolanda,(Oxygen?(No)) Jenny Akers MD; Bhavna Moore R.N. Reason for Study: recent dx of pelvic congestion syndromeMEDICATION/IV/DRIP/FLUID ORDERS 2 [facility]Sheet [facility] [address] [place] [address] Phone #: ext- [phone] 03/31/2021 18:26 Patient: ZARIA CAR Sex: F : 1995 Age: 26yOrder Description Priority Entered Acknowledged InitialedIV NS 1000 mL 18:36 03/31/2021 Ack'd: 1 8:38 19:03 Oscar,Bolus : Bolus 1000 Jenny Akers MD; Bhavna Moore R.N.mL (X1) R.N.Zofran IVP 4 mg 18:36 03/31/2021 Ack'd: 18:38 19:03 Oswald Moore Norma MD; Bhavna Moore.NAzul R.N.Toradol IVP 30 mg 18:36 03/31/2021 Ack'd: 18:38 19:03 Moore,(NOW x1) Jenny Akers MD; Bhavna Moore R.N. R.N.Morphine IVP 4 mg 19:06 03/31/2021 Ack'd: 19:08 19:18 Oscar,(NOW x1, HIGH Jenny Akers MD; Bhavna Moore R.N.ALERT R.N.MEDICATION)Zofran IVP 4 mg 20:54 03/31/2021 Ack'd: 20:55 21:01 Oswald Atkins Norma MD; Sarah Atkins.N. Sarah R.N.Acetaminophen IV 20:54 03/31/2021 Ack'd: 20:55 21:01 Torchia,1000 mg (NOW x1, Jenny Akers MD; Sarah Atkins R.N. Sarah R.N.Infuse over 15minutes)fentaNYL IVP 50 21:18 03/31/2021 Ack'd: 22:06 22:07 Oscar,[facility] [place] (HIGH ALERT Jenny Akers MD; Bhavna Moore R.NAzulMEDICATION) R.N.GENERAL ORDERSOrder Description Priority Entered Acknowledged Initialed[Electronically signed by Jenny Akers MD (23:38 03/31/2021)][Electronically signed by Vania Guerrero (23:41 03/31/2021)][Electronically locked by Vania Guerrero (23:41 03/31/2021)] Name Value Range Interpretation Code Description Data Rachel rce(s) Supporting Document(s) ID Date Data Source [id number] 03/31/2021 06:31:00 PM EST [facility] 1 Medication Reconciliation Report [facility] Department [address] [place] [address] Phone #: ext- [phone] 03/31/2021 18:26 Patient: ZARIA CAR Sex: F : 1995 Age: 26yWeight: 74.8 kgHeight/Length: 69 in.BMI: 24.4ALLERGIES: No Known Drug AllergyThe patient's Home Medications are listed below:NONE.The source(s) of the original Home Medication information:patientThe following Medications were given to the patient in the Emergency Department:NS [IV] IV Fluids bolus 1000 mL wide open, administered: 18:53 03/31/2021Zofran [IVP] IVP 4 mg, administered: 18:53 03/31/2021Toradol [IVP] IVP 30 mg, administered: 18:53 03/31/2021Morphine [IVP] IVP 4 mg diluted in NS 8 mL, administered: 19:13 03/31/2021Zofran [IVP] IVP 4 mg, administered: 21:03/31/2021cetaminophen IV bolus 0, then 1000 mg, administered: 21:03/31/2021Fentanyl [IVP] IVP 50 mcg diluted in NS 8 mL, administered: 22:02 03/31/2021The following Medications were prescribed to the patient:None. Name Value Range Interpretation Code Description Data Rachel rce(s) Supporting Document(s) ID Date Data Source [id number] 03/31/2021 06:31:00 PM EST [facility] 1 Medication Administration Record [facility] Department [address] [place] [address] Phone #: ext- [phone] 03/31/2021 18:26 Patient: ZARIA CAR Sex: F : 1995 Age: 26yWeight: 74.8 kgHeight/Length: 69 inBMI: 24.4ALLERGIES: No Known Drug Allergy Date/Time Medication Administered Medication OrderedStart NS [IV] IV NS 1000 mL Bolus : Bolus 480297:[id number] 03/31/2021 Dose: IV Fluids mL (X1)Bhavna Moore R.N. Bolus: 1000 mL wide open---- Dispensed: 1000 mL bagStop Site: #1 left AC19:37 03/31/2021Bhavna Moore R.N.Given ZOFRAN [IVP] (ONDANSETRON HCL) Zofran IVP 4 mg18:53 03/31/2021 Dose: 4 mg IVPBhavna Moore R.N. Site: #1 left ACGiven TORADOL [IVP] (KETOROLAC Toradol IVP 30 mg (NOW x1)18:53 03/31/2021 TROMETHAMINE)Bhavna Moore R.N. Dose: 30 mg IVP Site: #1 left ACGiven MORPHINE [IVP] Morphine IVP 4 mg (NOW x1, HIGH19:13 03/31/2021 Dose: 4 mg IVP ALERT MEDICATION)Bhavna Moore R.N. In: NS 8 mL Site: #1 left ACGiven ZOFRAN [IVP] (ONDANSETRON HCL) Zofran IVP 4 mg21:01 03/31/2021 Dose: 4 mg IVPTorSarah valles R.N. Site: #1 left ACStart Acetaminophen * Acetaminophen IV 1000 mg (NOW21:01 03/31/2021 Dose: 1000 mg * IV x1, Infuse over 15 minutes)Sarah Atkins R.N.----Stop21:14 03/31/2021Sarah Atkins R.N.Given FENTANYL [IVP] fentaNYL IVP 50 mcg (HIGH22:02 03/31/2021 Dose: 50 mcg IVP ALERT MEDICATION)Bhavna Moore R.N. In: NS 8 mL Site: #1 left AC Name Value Range Interpretation Code Description Data Rachel rce(s) Supporting Document(s) ID Date Data Source [id number] 03/31/2021 06:31:00 PM EST [facility] 1 General Instructions [facility] Department [address] [place] [address] Phone #: ext- [phone] 03/31/2021 18:26 Patient: ZARIA CAR Sex: F : 1995 Age: 26y Right lower quadrant, suprapubic and left lower quadrant abdominal pain.No acute abdominal pain. Possible pelvic congestion syndrome.INSTRUCTIONS Do not work today, tomorrow. Drink plenty of fluids. (return if worse or any new symptoms. take tylenol and motrin for pain.). Warnings: Further evaluation is necessary. GENERAL WARNINGS: Return or contact your physician immediately if your condition worsens or changes unexpectedly, if not improving as expected, or if other problems arise. Your Current Medications: . No home medication. Follow-up: Follow up with doctor Dr. Gomez in one day even if well. Call for an appointment. Reason for referral: evaluation. Summary of care provided to patient via paper. Understanding of the discharge instructions verbalized by patient. ADDITIONAL INFORMATIONUnknown Causes of Abdominal Pain (Female) 2 General Instructions [facility] Department [address] [place] [address] Phone #: ext- [phone] 03/31/2021 18:26 Patient: ZARIA CAR Sex: F : 1995 Age: 26yThe exact cause of your belly (abdominal) pain is not clear. This does not mean that this issomething to worry about. Everyone likes to know the exact cause of the problem. But sometimeswith belly pain, there is no clear-cut cause, and this could be a good thing. The good news is thatyour symptoms can be treated, and you will feel [...] pain.The pain may continue even if treated correctly over the following days. Depending on how things go,sometimes the cause can become clear and may need more or different treatment. Ad ditionalevaluations, medicines, or tests may also be needed.Home careYour healthcare provider may prescribe medicine for pain, symptoms, or an infection. Follow thehealthcare provider's instructions for taking these medicines. 3 General Instructions [facility] [address] [place] [address] Phone #: [phone]- [phone] 03/31/2021 18:26 Patient: ZARIA CAR Sex: F : 1995 Age: 26yGeneral care Rest as much as you can [...] Water is important so you don't get dehydra tobias. Soup may also be good. Sports drinks [...] begin to improve in thenext 24 hours.Call [phone] if any of these occur: Trouble breathing Confusion Fainting or loss of consciousness Rapid heart rate 4 General Instructions [facility] [address] [place] [address] Phone #: ext- [phone] 03/31/2021 18:26 Patient: ZARIA CAR Sex: F : 1995 Age: 26y SeizureWhen to seek medical adviceCall your healthcare [...] or water and you are getting dehydrated [phone] The [employer]. All rights reserved. This information is not intended as a substitute for professional medical care. Alwaysfollow your healthcare professional's instructions. You have been given the following additional information: Abdominal Pain, Unknown Cause, (Female) Do not work today, tomorrow.(Electronically signed by Jenny Akers MD 03/31/2021 23:38) Name Value Range Interpretation Code Description Data Rachel rce(s) Supporting Document(s) ID Date Data Source [id number] 03/31/2021 06:31:00 PM EST [facility] 1 Clinical Report - Nurses [facility] [address] [place] [address] Phone #: [phone] 03/31/2021 18:26 Patient: ZARIA CAR Sex: F : 1995 Age: 26yTRIAGEArrived by private vehicle. Historian: patient. Unaccompanied.Triage time: 18:27 03/31/2021. Acuity: LEVEL 3.Chief Complaint: ABDOMINAL PAIN, NAUSEA and VOMITING.Alert. No acute distress.This started today. Onset. (0400). ( Pt states she started having central/right sided abdominal pain atwork this morning at 0400, went home and took tylenol and then started vomiting. Pt states everytime shehas tried to eat or drink today she has vomited. Pt states she still has her appendix but had gallbladderremoved.). She has had nausea and abdominal pain. The pain is described as located in the right side ofthe abdomen and central area of the abdomen. She has had vomiting (6 times). 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 No signs of organ dysfunction present. (18:30 03/31/2021).--18:31 03/31/21 Lulú Mckeon REj18:27 03/31/21. BP: 115/81. MAP: 92. HR: 84. RR: 16. O2 saturation: 100% on room air. Temp: 98.7 F(oral). Pain level now: 01/18. --18:31 03/31/21 Lulú Mckeon R.N.Weight: 74.8 kg stated. Height/Length: 69 inches Per Patient. BMI: 24.4. --18:27 03/31/21 Lulú Mckeon R.N.MedicationsNone. --18:29 03/31/21 Lulú Mckeon R.N.AllergiesNo Known Drug Allergy. --18:29 03/31/21 Lulú Mckeon R.N.PROBLEMS:Ovarian Cyst.Migraine Headache. --18:30 03/31/21 Lulú Mckeon R.N.Medication/allergy information source: the patient.[place] [facility] [place] --18:31 03/31/21 Lulú Mckeon R.N. 2 Clinical Report - Nurses [facility] [address] [place] [address] Phone #: ext- [phone] 03/31/2021 18:26 Patient: ZARIA CAR Sex: F : 1995 Age: 26y ADDITIONAL SURGERIES: Cholecystectomy. . Exploratory lap. Salpingectomy. --18:30 03/31/21 Lulú Mckeon R.N. History PAST MEDICAL HX: Immunizations: up-to-date and (Pt has had COVID-19 vaccine). Last normal menstrual period- 03/18/2021. SOCIAL HX: Former smoker. Occasional alcohol use. No drug use. No [...] question(s) "Do you feel safe in your home?". Abuse denied. No suspicion of abuse. No report of abuse. NUTRITIONAL RISK ASSESSMENT: The nutritional risk assessment revealed no deficiencies. FUNCTIONAL ASSESSMENT: Functional assessment: no impairments noted. LEARNING NEEDS ASSESSMENT: The learning needs assessment revealed no barriers. FALL RISK ASSESSMENT: Fall risk assessment completed. No risk factors identified. SKIN INTEGRITY ASSESSMENT: Skin integrity risk assessment completed. No skin integrity risk identified. --18:31 03/31/21 Lulú Mckeon R.N. Interventions Identification band on patient. --18:31 03/31/21 Lulú Mckeon R.N.PHYSICAL ASSESSMENTlate entry - 18:50 03/31/21. Ambulatory to room.GENERAL / NEURO / PSYCH: Alert. Oriented X 4. Appears in no acute distress. Appears in pain.HEENT: Mucous membranes are pink.RESPIRATORY: Respirations not labored. Breath sounds within normal limits. 3 Clinical Report - Nurses [facility] [address] [place] [address] Phone #: [phone] 03/31/2021 18:26 Patient: ZARIA CAR Sex: F : 1995 Age: 26y CVS: Normal sinus rhythm noted. Capillary refill less than 2 seconds. GI / : Abdomen soft. Abdominal tenderness in the right side of the abdomen and right lower quadrant. Bowel sounds within normal limits. SKIN: Skin is warm and dry. --21:22 03/31/21 Bhavna Moore R.N.NURSING PROGRESS NOTESNIBP monitor and pulse oximeter placed on patient; monitor alarms on. Patient gowned. Reassurancegiven. Three patient identifiers checked. Call light placed in reach. Side rails up x 2. Bed placed inlowest position. Brakes of bed on. Patient ready for evaluation- ED physician and PA notified. --18: Lulú Mckeon R.N. 18:47 03/31/2021 Site #1 started via IV in the left antecubital space with an 20g angiocath, with aseptic technique and good blood return; one attempt. Blood drawn: rainbow set and blood bank tube. Labeled in the presence of the patient and sent to the lab. Saline lock flushed with 10 mL saline. --19:03/31/21 Bhavna Moore R.N. 18:53 03/31/2021 Started bag #1 1000 mL IV Fluids NS; bolus of 1000 mL wide open via site #1 via IV pump. Allergies verified and confirmed 5 rights. IV patency established. IV site checked: no pain, redness, or swelling. IV flushed thoroughly pre- and post- medication administration. Information reviewed with patient including reason for taking this medication, signs of allergic reaction and precautions. Theresa balizes understanding. --19:03/31/21 Bhavna Moore R.N. 18:53 03/31/2021 Zofran (Ondansetron HCl) IVP 4 mg given over 2 minute(s) via site #1. Allergies verified and confirmed 5 rights. IV patency established. IV site checked: no pain, redness, or swelling. IV flushed thoroughly pre- and post-medication administration. IVP given by RN. Information reviewed with patient including reason for taking this medication, signs of allergic reaction and precautions. Verbalizes understanding. --19:03/31/21 Bhavna Moore R.N. 18:53 03/31/2021 Toradol (Ketorolac Tromethamine) IVP 30 mg given over 3 minute(s) via site #1. Allergies verified and confirmed 5 rights. IV patency established. IV site checked: no pain, redness, or swelling. IV flushed thoroughly pre- and post- medication administration. IVP given by RN. Information reviewed with patient including reason for taking this medication, signs of allergic reaction and precautions. Verbalizes understanding. --19:03 03/31/21 Bhavna Moore R.N. 19: 13 03/31/2021 Morphine IVP 4 mg given diluted in NS 8mL over 4 minute(s) via site #1. Allergies verified and confirmed 5 rights. IV patency established. IV site checked: no pain, redness, or swelling. IV flushed thoroughly pre- and post-medication administration. IVP given by RN. Information reviewed with patient including reason for taking this medication, signs of allergic reaction, precautions and sedative warning. Verbalizes understanding. --19:18 03/31/21 Bhavna Moore R.N. 19:37 03/31/2021 IV Fluids NS via IV site #1 Discontinued: bag #1 infused. Total amount infused: 1000ml mL. IV patency established. IV site checked: no pain, redness, or swelling. IV flushed thoroughly. --19:37 03/31/21 Bhavna Moore R.N. 4 Clinical Report - Nurses [facility] [address] [place] [address] Phone #: ext- [phone] 03/31/2021 18:26 Patient: ZARIA CAR Sex: F : 1995 Age: 26y 19:30 03/31/21. BP: 113/72. MAP: 85. HR: 82. RR: 17. O2 saturation: 99%. 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 --20:11 03/31/21 [place] supervisor statement clerks, Deric, ER Tech1 Patient returned from [place] by wheelchair with mask and customer account technician. --20:27 03/31/21 [facility] Tech Deric ER Tech1 21:01 03/31/2021 Zofran (Ondansetron HCl) IVP 4 mg given over 2 minute(s) via site #1. Allergies verified and confirmed 5 rights. IV patency established. IV site checked: no pain, redness, or swelling. IV flushed thoroughly pre- and post-medication administration. IVP given by RN. Information reviewed with patient. Verbalizes understanding. --21:03/31/21 Sarah Atkins R.N. 21:03/31/2021 Acetaminophen * IV 1000 mg 5 rights confirmed, allergies verified. Pt verbalizes understanding. --21:03/31/21 Sarah Atkins R.N. ( Patient rang call morgan stating she was having severe abdominal pain and still felt nauseous. MD Akers made aware, pt medicated per JUL.). --21:02 03/31/21 Sarah Atkins R.N. 21:14 03/31/2021 Acetaminophen IV Discontinued: completed. Total amount infused: 100 mL. IV patency established. IV site checked: no pain, redness, or swelling. IV flushed thoroughly. --21:14 03/31/21 Sarah Atkins R.N. 22:02 03/31/2021 Fentanyl IVP 50 mcg given diluted in NS 8mL over 5 minute(s) via site #1. Allergies verified and confirmed 5 rights. IV patency established. IV site checked: no pain, redness, or swelling. IV flushed thoroughly pre- and post- medication administration. IVP given by RN. Information reviewed with patient including reason for taking this medication, signs of allergic reaction, precautions and sedative warning. Verbalizes understanding. --22:07 03/31/21 Bhavna Wetzel R.N. Care transferred and report given (Omar Guerrero RN). --22:23 03/31/21 Bhavna Moore R.N. 22:49 03/31/21. BP: 130/86. MAP: 100. HR: 75. RR: 17. O2 saturation: 100%. --22:49 03/31/21 Sarah Atkins R.N. The patient is calm and resting quietly. Overall patient status- she states feels better. Patient returned from radiology by wheelchair with mask and customer account technician. --22:49 03/31/21 Sarah Atkins R.N. 22:49 03/31/2021 Fentanyl IVP Response: symptoms have improved the patient feels better. --22:49 03/31/21 Sarah Atkins R.N.DISPOSITION / DISCHARGE 23:34 03/31/21. BP: 130/79. HR: 73. RR: 16. O2 saturation: 98%. Temp: 98.0 F. Pain level now 08/18. --23:34 03/31/21 Vania Guerrero 5 Clinical Report - Nurses [facility] [address] [place] [address] Phone #: ext- [phone] 03/31/2021 18:26 Patient: ZARIA CAR Sex: F : 1995 Age: 26y 23:35 03/31/2021 Site #1 removed upon discharge. Catheter intact. Bandaid applied. --23:35 03/31/21 Vania Guerrero Condition at departure: improved and stable. No learning barriers present. Discharge instructions provided and reviewed with the patient. Reviewed warnings. Reviewed medication(s). Reviewed referrals. Work note given. Patient verbalized understanding. Written instructions provided in Indian. The patient was discharged by the physician. She was discharged home and unaccompanied at time of discharge. She left ambulatory and via private vehicle. Practice Managers driving. --23:40 03/31/21 Vania Guerrero [place] Coma Scale: 15- eyes open- spontaneous (4); best verbal response- oriented (5); best motor response- obeys commands (6). --23:41 03/31/21 Vania Guerrero Departure time: 23:41 03/31/2021. --23:41 03/31/21 Vania Guerrero.Locked/Released at 03/31/2021 23:41 by Vania Guerrero Name Value Range Interpretation Code Description Data Rachel rce(s) Supporting Document(s) ID Date Data Source [id number] 03/31/2021 06:31:00 PM EST [facility] 1 Clinical Report - Physicians/Mid Levels [facility] [address] [place] [address] Phone #: ext- [phone] 03/31/2021 18:26 Patient: ZARIA CAR Sex: F : 1995 Age: 26y Arrived- By private vehicle. Historian- patient. Disposition decision: 23:33 03/31/2021.HISTORY OF PRESENT ILLNESS Chief Complaint: PELVIC PAIN. This started today and still present. The symptoms are described as mild. The patient has had abdominal pain and pelvic pain. No vaginal pain, low back pain, flank pain, pain with urination or urinary frequency. No urgency of urination or hematuria. (his started today. Onset. (0400). ( Pt states she started having central/right sided abdominal pain at work this morning at 0400, went home and took tylenol and then started vomiting. Pt states everytime she has tried to eat or drink today she has vomited. Pt states she still has her appendix but had gallbladder removed.). She has had nausea and abdominal pain. The pain is described as located in the right side of the abdomen and central area of the abdomen. She has had vomiting (6 times). ( Last BM 2 days ago per pt and states it was normal but she feels she is constipated.).). Similar symptoms previously. Recent medical care: Not recently seen/assessed.REVIEW OF SYSTEMSThe patient has had nausea. She has had vomiting, abdominal pain and vomiting. No diarrhea, blackstools, headache, fever or eye discomfort. No sore throat or throat, cough or difficulty breathing. Nochest pain or pain, skin rash or rash or chills. No muscle aches, double vision, ear pain, cough or difficultybreathing. No diarrhea, back pain, neck pain, headache or seizure. No easy bruising, difficulty withurination or loss of smell or taste.PAST HISTORYSee nurses notes.SOCIAL HISTORYNo drug use.ADDITIONAL NOTESThe nursing notes have been reviewed.PHYSICAL EXAMVital Signs: 03/31/2021 22:49 BP: 130/86. MAP: 100. HR: 75. RR: 17. O2 saturation: 100%.03/31/2021 19:30 BP: 113/72. MAP: 85. HR: 82. RR: 17. O2 saturation: 99%.03/31/2021 18:27 BP: 115/81. MAP: 92. HR: 84. RR: 16. O2 saturation: 100% on room air. Temp: 98.7 F. 2 Clinical Report - Physicians/[facility] Levels [facility] [address] [place] [address] Phone #: ext- [phone] 03/31/2021 18:26 Patient: ZARIA CAR Sex: F : 1995 Age: 26yPain level now: 01/18. Have been reviewed and appear to be correct. Blood pressure normal. Meanarterial pressure- normal. Heart rate normal. Respiratory rate normal. Temperature normal. Oxygensaturation normal.Appearance: Alert. Oriented X3. Appears to be in pain. Patient in mild distress.HEENT: Normal external inspection.Neck: Neck supple.CVS: Heart sounds normal.Respiratory: No respiratory distress. Painless inspiration. Breath sounds normal. Chest nontender.Abdomen: Soft. Tenderness in the right lower quadrant, suprapubic area and left lower quadrant. Bowelsounds normal.Back: Normal external inspection.Skin: Skin warm and dry. Normal skin color. No rash. Normal skin turgor.Extremities: Extremities nontender. No lower extremity edema.Neuro: Oriented X 3. Mood/affect normal. No motor deficit.LABS, X-RAYS, AND EKGLab oratory Tests:US TRANSVAGINAL (NON OB): (ABILIO: 03/31/2021 22:16) ( MsgRcvd 03/31/2021 22:51) CanceledUS TRANSVAGINAL(NON OB)Reason for Exam: PELVIC CONGESTION SYNDROMETRANSPORTATION: AMB IV? N O2? NPREGNANCY STATUS: NEG BETA ISOLATION NUS Pelvis: (ABILIO: 03/31/2021 21:17) ( MsgRcvd 03/31/2021 22:54) In ProgressUS PELVICReason(s): recent dx of pelvic congestion syndromeTRANSPORTATION: WC IV? O2? Oxygen?(No) Room: [facility] W/ IV Contrast Only: (ABILIO: 03/31/2021 19:49) ( MsgRcvd 03/31/2021 21:07) In ProgressCT ABDReason(s): Abdominal PainTRANSPORTATION: S IV? IV?(Yes) O2? Oxygen?(No) Ro: No CMTS: periumbilical and rlq painCBC w Diff: (ABILIO: 03/31/2021 18:51) ( MsgRcvd 03/31/2021 19:42) Final results Test Result Flag Units (Reference) CBC W/AUTOMATED DIFF COMPLETE BLOOD COUNT WBC 6.7 10/uL (4.2 - 11.0) RBC 4.26 10/uL (4.20 - 5.40) HEMOGLOBIN 13.8 g/dL (12.0 - 16.0) HEMATOCRIT 41.2 % (37.0 - 47.0) MCV 96.7 fL (81.0 - 101) MCH 32.4 pg (27.0 - 34.0) MCHC 33.5 g/dL (31.0 - 36.0) RDW 12.3 % (11.5 - 14.5) PLATELETS 262 10/uL (150 - 450) 3 Clinical Report - Physicians/Mid Levels [facility] [address] [place] [address] Phone #: ext- [phone] 03/31/2021 18:26 Patient: ZARIA CAR Sex: F : 1995 Age: 26y MPV 10.4 fL (7.4 - 10.4) NEUT 56.7 % (37.0 - 80.0) LYMPH 33.4 % (25.0 - 40.0) MONO 7.7 % (3.0 - 8.0) EOS 1.8 % (0.0 - 7.0) BASO 0.3 % (0.0 - 2.5) %IG 0.1 H % (0.0 - 0.0) %NRBC 0.0 % (0.0 - 0.0) #NEUT 3.82 10/uL (2.00 - 6.90) #LYMPH 2.25 10/uL (0.60 - 3.40) #MONO 0.52 10/uL (0.00 - 0.90) #EOS 0.12 10/uL (0.00 - 0.70) #BASO 0.02 10/uL (0.00 - 0.20) #IG 0.01 10/uL (0.00 - 0.10) #NRBC 0.00 10/uL (0.00 - 0.00) MANUAL DIFF NOT INDICATED RBC MORPH NOT INDICATEDCMP: (ABILIO: 03/31/2021 18:51) ( MsgRcvd 03/31/2021 19:42) Final results Test Result Flag Units (Reference) COMPREHENSIVE METABOLIC PANEL COMPREHENSIVE METABOLIC PANEL SODIUM 140 mEq/L (134 - 153) POTASSIUM 4.0 mEq/L (3.6 - 5.0) CHLORIDE 101 mEq/L (98 - 107) CO2 27 MEQ/L (22 - 30) GLUCOSE 103 H MG/DL (70 - 99) BUN 7 MG/DL (7 - 21) CREATININE 0.6 L MG/DL (0.7 - 1.5) BUN/CREAT 12 (8 - 27) TOTAL PROTEIN 7.2 G/DL (6.3 - 8.2) ALBUMIN 4.8 G/DL (3.9 - 5.0) GLOBULIN 2.4 GM/DL (2.4 - 3.2) A/G RATIO 2.0 (0.8 - 2.0) CALCIUM 9.9 MG/DL (8.4 - 10.2) TOTAL BILI <0.7 MG/DL (0.2 - 1.3) ALKALINE PHOS 88 U/L (38 - 126) SGOT/AST 13 U/L (5 - 40) SGPT/ALT 7 U/L (7 - 56) ANION GAP 12.0 mmol/L (8.0 - 16.0) AGE 26 yrs NON-AA GFR >60 mL/min AFR AMER GFR >60 mL/min Male GFR Interprentation 20-49 yrs >60 mL/min Giajoh24-43 yrs >56 mL/min Normal 60-69 yrs >49 mL/min Normal 70-79yrs>42 mL/min Normal 80 and above >35 mL/min Normal Female GFRInterpretation 20-39 yrs >60 mL/min Normal 40-49 yrs >58 mL/minNormal 50-59 yrs >51 mL/min Normal 60-69 yrs >45 mL/min Nphxfu62-06 yrs >39 mL/min Normal 80 and above >32 mL/min NormalLactic Acid: (ABILIO: 03/31/2021 18:51) ( [facility] Final results Test Result Flag Units (Reference) LACTIC ACID 1.4 MMOL/L (0.2 - 2.2)Lipase: (ABILIO: 03/31/2021 18:51) ( [facility] 03/31/[facility] 19:36) Final results Test Result Flag Units (Reference) LIPASE 26 U/L (13 - 60) 4 Clinical [facility] [address] [place] [address] Phone #: ext- [phone] 03/31/2021 18:26 Patient: ZARIA CAR Sex: F : 1995 Age: 26y UA REFLEX TO UA CULTURE: (ABILIO: 03/31/2021 18:48) ( MsgRcvd 03/31/2021 20:00) Final results Test Result Flag Units (Reference) UA REFLEX TO UA CULTURE URINALYSIS SOURCE R COLOR yellow (NORMAL: Yello CLARITY hazy (NORMAL: Clear SPEC GRAVITY 1.020 (1.001 - 1.030 pH 6 (5 - 9) GLUCOSE NORM (NORMAL: Negat BILIRUBIN NEG (NORMAL: Negat KETONE 5 A (NORMAL: Negat PROTEIN 15 (NORMAL: Negat NITRITE NEG (NORMAL: Negat BLOOD NEG (NORMAL: Negat LEUK EST NEG (NORMAL: Negat UROBILINOGEN NOR (less than 1.0 MICROSCOPIC See Below WBC 0 - 1 (NORMAL: NONE EPITHELIAL MODERATE A (NORMAL: NONE MUCOUS 1+ (NORMAL: NONE Beta-HCG, Qual Serum: (ABILIO: 03/31/2021 18:51) ( MsgRcvd 03/31/2021 19:30) Final results Test Result Flag Units (Reference) HCG SERUM QUAL NEGATIVE (NORMAL: NEGAT HCG SERUM QL REENTER NEGATIVE (NORMAL: NEGAT { KIT LOT # [id number] ){ KIT EXP DATE 06-10-22 ){ PROCEDURAL CONTROL VALID ).PROGRESS AND PROCEDURESCourse of Care: pt with chronic pelvic pain. labs grossly nl. she has had pelvic pain for a while. she isnot . her ct showed what appeared to be pelvic congestion syndrome. us showed no acutefindings. nl flow to ovaries. p t was given ivf and multiple doses of pain meds. pt was instructed to f/uwith manager payroll beginning of this week. pt voiced understanding of all instructions. Patient/family counseled. Disposition: Discharged. Condition: good and stable.CLINICAL IMPRESSION Right lower quadrant, suprapubic and left lower quadrant abdominal pain.No acute abdominal pain. Possible pelvic congestion syndrome. 5 Clinical Report [facility] [address] [place] [address] Phone #: ext- [phone] 03/31/2021 18:26 [id number] Sex: [facility] : 1995 Age: 26yINSTRUCTIONS Do not work today, tomorrow. Drink plenty of fluids. (return if worse or any new symptoms. take tylenol and motrin for pain.). Warnings: Further evaluation is necessary. GENERAL WARNINGS: Return or contact your physician immediately if your condition worsens or changes unexpectedly, if not improving as expected, or if other problems arise. Your Current Medications: . No home medication. Follow-up: Follow up with doctor Dr. Gomez in one day even if well. Call for an appointment. Reason for referral: evaluation. Summary of care provided to patient via paper. Understanding of the discharge instructions verbalized by patient.(Electronically signed by Jenny Akers MD 03/31/2021 23:38) Name Value Range Interpretation Code Description Data Rachel rce(s) Supporting Document(s) ID Date Data Source [id number] 03/31/2021 07:42:00 PM EST [facility] Name Value Range Interpretation Code Description Data [facility] rce(s) Supporting Document(s) CBC W/AUTOMATED DIFF [facility] COMPLETE BLOOD COUNT Leukocytes [#/volume] in Blood by Automated count 6.7 10^3/uL 4.2 - 1 1.0 [facility] Erythrocytes [#/volume] in Blood by Automated count 4.26 10^6/uL 4. 20 - 5.40 [facility] Hemoglobin [Mass/volume] in Blood 13.8 g/dL 12.0 - 16.0 [facility] Hematocrit [Volume Fraction] of Blood by Automated count 41.2 % 3 7.0 - 47.0 [facility] Erythrocyte mean corpuscular volume [Entitic volume] by Auto mated count 96.7 fL 81.0 - 101 [facility] Erythrocyte mean corpuscular hemoglobin [Entitic mass] by Automated count 32.4 pg 27.0 - 34.0 [facility] Erythrocyte mean corpuscular hemoglobin concentration [Mass/volume] by Automated count 33.5 g/dL 31.0 - 36.0 [facility] Erythrocyte distribution width [Ratio] by Automated count 12.3 % 11.5 - 14.5 [facility] Platelets [#/volume] in Blood by Automated count 262 10^3/uL 150 - 45 0 [facility] Platelet mean volume [Entitic volume] in Blood by Automated count 10.4 fL 7.4 - 10.4 [facility] Neutrophils/100 leukocytes in Blood by Automated count 56.7 % 37. 0 - 80.0 [facility] Lymphocytes/100 leukocytes in Blood by Manual count 33.4 % 25.0 - 40.0 [facility] Monocytes/100 leukocytes in Blood by Automated count 7.7 % 3.0 - 8.0 [facility] Eosinophils/100 leukocytes in Blood by Automated count 1.8 % 0.0 - 7.0 [facility] Basophils/100 leukocytes in Blood by Automated count 0.3 % 0.0 - 2.5 [facility] %IG 0.1 % 0.0 - 0.0 H [facility] al %NRBC 0.0 % 0.0 - 0.0 [facility] al Neutrophils [#/volume] in Blood by Automated count 3.82 10^3/uL 2.00 - 6.90 [facility] Lymphocytes [#/volume] in Blood by Automated count 2.25 10^3/uL 0.60 - 3.40 [facility] Monocytes [#/volume] in Blood by Automated count 0.52 10^3/uL 0.00 - 0.90 [facility] Eosinophils [#/volume] in Blood by Automated count 0.12 10^3/uL 0.00 - 0.70 [facility] Basophils [#/volume] in Blood by Automated count 0.02 10^3/uL 0.00 - 0.20 [facility] #IG 0.01 10^3/uL 0.00 - 0.10 [facility] ospital #NRBC 0.00 10^3/uL 0.00 - 0.00 [facility] ospital MANUAL DIFF NOT INDICATED [facility] RBC MORPH NOT INDICATED [facility] spital ID Date Data Source [id number] 03/31/2021 07:42:00 PM EST [facility] Name Value Range Interpretation Code Description Data Rachel rce(s) Supporting Document(s) COMPREHENSIVE METABOLIC PANEL [facility] COMPREHENSIVE METABOLIC PANEL Sodium [Moles/volume] in Serum or Plasma 140 mEq/L 134 - 153 [facility] Potassium [Moles/volume] in Serum or Plasma 4.0 mEq/L 3.6 - 5.0 [facility] Chloride [Moles/volume] in Serum or Plasma 101 mEq/L 98 - 107 [facility] Carbon dioxide, total [Moles/volume] in Serum or Plasma 27 MEQ/L 22 - 30 [facility] Glucose [Mass/volume] in Serum or Plasma 103 MG/DL 70 - 99 H [facility] BUN 7 MG/DL 7 - 21 [facility] al Creatinine [Mass/volume] in Serum or Plasma 0.6 MG/DL 0.7 - 1.5 L [facility] BUN/CREAT 12 8 - 27 [facility] Protein [Mass/volume] in Serum or Plasma 7.2 G/DL 6.3 - 8.2 [facility] Albumin [Mass/volume] in Serum or Plasma 4.8 G/DL 3.9 - 5.0 [facility] Globulin [Mass/volume] in Serum by calculation 2.4 GM/DL 2.4 - 3.2 [facility] A/G RATIO 2.0 0.8 - 2.0 [facility] Calcium [Mass/volume] in Serum or Plasma 9.9 MG/DL 8.4 - 10.2 [facility] Bilirubin.total [Mass/volume] in Serum or Plasma <0.7 MG/DL 0.2 - 1.3 [facility] Alkaline phosphatase [Enzymatic activity/volume] in Serum or Plasma 88 U/L 38 - 126 [facility] Aspartate aminotransferase [Enzymatic activity/volume] in Serum or Plasma 13 U/L 5 - 40 [facility] Alanine aminotransferase [Enzymatic activity/volume] in Seru m or Plasma 7 U/L 7 - 56 [facility] Anion gap 3 in Serum or Plasma 12.0 mmol/L 8.0 - 16.0 [facility] AGE 26 [facility]rs [facility] NON-AA GFR >60 mL/min [facility] ital AFR AMER GFR >60 mL/min [facility] Ho spital Male GFR In terprentation 20-49 [...] >32 mL/min Normal ID Date Data Source [id number] 03/31/2021 07:36:00 PM [facility] Name Value Range Interpretation Code Description Data Rachel rce(s) Supporting Document(s) Lipase [Enzymatic activity/volume] in Serum or Plasma 26 U/L 13 - 60 [facility] ID Date Data Source [id number] 03/31/2021 07:31:00 PM [facility] Name Value Range Interpretation Code Description Data Rachel rce(s) Supporting Document(s) Lactate [Moles/volume] in Serum or Plasma 1.4 MMOL/L 0.2 - 2.2 [facility] ID Date Data Source [id number] 03/31/2021 07:30:00 PM [facility] Name Value Range Interpretation Code Description Data Rachel rce(s) Supporting Document(s) HCG SERUM QUAL NEGATIVE NORMAL: NEGATIVE [facility] HCG SERUM QL REENTER NEGATIVE NORMAL: NEGATIVE [facility] { KIT LOT # [id number] ){ KIT EXP DATE 06-10-22 ){ PROCEDURAL CONTROL VALID ) ID Date Data Source [id number] 03/31/2021 07:59:00 PM [facility] Name Value Range Interpretation Code Description Data Rachel rce(s) Supporting Document(s) UA REFLEX TO UA CULTURE [facility] URINALYSIS SOURCE [facility] yellow NORMAL: Yellow [facility] CLARITY hazy NORMAL: Clear [facility] Ho spital Specific gravity of Urine by Test strip 1.020 1.001 - 1.030 [facility] pH 6 5 - 9 [facility] Glucose [Mass/volume] in Urine by Test strip NORM NORMAL: Negat [facility] Bilirubin.total [Presence] in Urine by Test strip NEG NORMAL: Negative [facility] Ketones [Presence] in Urine by Test strip 5 NORMAL: Negative A [facility] Protein [Mass/volume] in Urine by Test strip 15 NORMAL: Negat [facility] Nitrite [Presence] in Urine by Test strip NEG NORMAL: Negative [facility] BLOOD NEG NORMAL: Negative [facility] Leukocyte esterase [Presence] in Urine by Test strip NEG JENNY L: Negative [facility] Urobilinogen [Mass/volume] in Urine by Test strip NOR less nathalia n 1.0 mg/dL [facility] MICROSCOPIC See Below [facility] ital WBC 0 - 1 NORMAL: NONE SEEN [facility] EPITHELIAL MODERATE NORMAL: NONE SEEN A [facility] Mucus [Presence] in Urine sediment by Light microscopy 1+ NOR MAL: NONE SEEN [facility] ID Date Data Source [id number] 03/18/2021 08:23:00 AM EST [facility] Name Value Range Interpretation Code Description Data Rachel rce(s) Supporting Document(s) SARS coronavirus 2 RNA [Presence] in Res piratory specimen by JUAN with probe detection NEGATIVE [facility] This lab was ordered by [facility] a nd reported by [facility]. ID Date Data Source [id number] 03/16/2021 12:02:00 PM EDT [facility] DATE OF EXAMINATION: 03/16/2021 9:17 EDT ABD/PEL WITH ORAL ONLY HISTORY: Abdominal pain. Right lower quadrant pain. TECHNIQUE: This CT exam was performed using the following dose reduction techniques:automated exposure control, adjustment of mA and/or kV according to thepatient's size, and use of iterative reconstruction technique. Standard contiguous axial spiral imaging was obtained from the dome of thediaphragms through the symphysis pubis with oral contrast and withoutintravenous contrast administration and with coronal reformatting. FINDINGS: Lower thorax: Unremarkable ABDOMEN: Liver: NormalGa llbladder and bile ducts: CholecystectomyPancreas: NormalSpleen: NormalAdrenals: NormalKidneys and ureters: Normal unenhancedStomach and bowel: No obstruction ileus or inflammatory changes.Appendix: No appendicitis. PELVIS: Bladder: Unopacified grossly unremarkableReproductive: There is a 3.4 cm follicular cyst of the right ovary. Trace amount of fluid in the cul-de-sac IMPRESSION: 3.4 cm follicular cyst of right ovary. If there is any clinical concern fortorsion ultrasound with Doppler interrogation would be recommended. Electronically signed in [id number] by: Jorge Manzano M.D. 03/16/2021 11:56 EDT Name Value Range Interpretation Code Description Data Rachel rce(s) Supporting Document(s) ID Date Data Source [id number] 03/16/2021 09:27:00 AM EDT [facility] ital TSYSORDER [id number] Name Value Range Interpretation Code Description Data Rachel rce(s) Supporting Document(s) URINE COLOR. DARK YELLOW [facility] URINE APPEARANCE CLEAR [facility] l URINE GLUCOSE (UA) NEGATIVE mg/dL NEGATIVE [facility] URINE BILIRUBIN NEGATIVE NEGATIVE [facility] URINE KETONE 5(TRACE) mg/dL NEGATIVE H [facility] SPECIFIC GRAVITY,URINE >= 1.030 1.005-1.030 [facility] URINE BLOOD NEGATIVE NEGATIVE [facility] PH,URINE 5.5 5.0-9.0 [facility] URINE PROTEIN NEGATIVE mg/dL NEGATIVE [facility] tianna URINE UROBILINOGEN NORMAL(0.2-1) mg/dL 0-1 [facility] URINE NITRATE NEGATIVE NEGATIVE [facility] URINE LEUKOCYTE ESTERASE NEGATIVE NEGATIVE [facility] ID Date Data Source [id number] 03/16/2021 09:18:00 AM EDT [facility] l TSYSORDER [id number] Name Value Range Interpretation Code Description Data [facility] rce(s) Supporting Document(s) HCG URINE NEGATIVE NEGATIVE [facility] ID Date Data Source [id number] 03/16/2021 09:37:00 AM EDT [facility] l TSYSORDER [id number] Name Value Range Interpretation Code Description Data [facility] rce(s) Supporting Document(s) LACTIC ACID 0.6 mmol/L 0.4-2.0 [facility] ID Date Data Source [id number] 03/16/2021 09:37:00 AM EDT [facility] TSYSORDER [id number] Name Value Range Interpretation Code Description Data Rachel rce(s) Supporting Document(s) GLUCOSE 92 mg/dL 74-106 [facility] BLOOD UREA NITROGEN 9 mg/dL 7-18 [facility] ital CREATININE 0.74 mg/dl 0.55-1.02 [facility] SODIUM 139 mmol/L 136-145 [facility] POTASSIUM 3.4 mmol/L 3.5-5.1 L [facility] CHLORIDE 100 mmol/L 98-107 [facility] CO2 28 mmol/L 21-32 [facility] CALCIUM 9.4 mg/dL 8.5-10.1 [facility] ANION GAP 11.0 mmol/L 5-12 [facility] GLOMERULAR FILTRATION RATE >90 mL/min [facility] GFR IS CALCULATED IN mL/min/1.73m2 JENNY L FUNCTION: >90MILDLY DECREASED: 60-89MILDY TO MODERATELY DECREASED: 45-59 MODERATELY TO SEVERELY DECREASED: 30-44SEVERELY DECREASED: 15-29RENAL FAILURE: <15 AST 12 U/L 15-37 L [facility] ALT 19 U/L 14-59 [facility] ALKALINE PHOSPHATASE 74 U/L 46-116 [facility] pital TOTAL BILIRUBIN 0.4 mg/dL 0.2-1.0 [facility] TOTAL PROTEIN 8.2 g/dL 6.4-8.2 [facility] ALBUMIN 4.4 gm/dL 3.4-5.0 [facility] ID Date Data Source [id number] 03/16/2021 09:22:00 AM EDT [facility] TSYSORDER [id number] Name Value Range Interpretation Code Description Data [facility](s) Supporting Document(s) WHITE BLOOD COUNT 7.8 K/mm3 4.0-10.0 [facility] RED BLOOD COUNT 4.22 M/mm3 4.00-5.50 [facility] HEMOGLOBIN 13.6 gm/dL 12.0-16.0 [facility] HEMATOCRIT 40.1 % 36.0-48.8 [facility] MEAN CELL VOLUME 95.0 fl 80-96 [facility] MEAN CORPUSCULAR HEMOGLOBIN 32.2 pg 27.0-31.0 H [facility] MEAN CORPUSCULAR HGB CONC 33.9 g/dl 32.0-36.0 [facility] RED CELL DISTRIBUTION WIDTH 12.2 % 10.0-14.5 [facility] PLATELET COUNT 240 K/mm3 172-450 [facility] MEAN PLATELET VOLUME 10.4 fl 9.0-13.0 [facility] pital GRAN % 64.7 % 50-80.0 [facility] IG% 0.1 % 0.0-0.2 [facility] LYMPH % 26.1 % 25.0-50.0 [facility] MONO % 7.4 % 2.0-10.0 [facility] EOS % 1.3 % 0-5.0 [facility] BASO % 0.4 % 0.0-2.0 [facility] GRAN # 5.0 K/mm3 2.0-8.00 [facility] IG# 0.0 K/mm3 0.0-0.2 [facility] LYMPH # 2.0 K/mm3 1.0-5.0 [facility] MONO # 0.6 K/mm3 0.10-1.20 [facility] EOS # 0.1 K/mm3 0.0-0.5 [facility] BASO # 0.0 K/mm3 0.0-0.2 [facility] ID Date Data Source [id number] 02/06/2021 05:14:00 PM EDT [facility] Name Value Range Interpretation Code Description Data Rachel rce(s) Supporting Document(s) SARS coronavirus 2 RNA [Presence] in Res piratory specimen by JUAN with probe detection NEGATIVE [facility] This lab was ordered by [facility] a nd reported by [facility]. ID Date Data Source [id number] 10/29/2020 09:42:00 [place] [address] OPERATIVE SUMMARYNAME: JOCELINE Nguyễn DATE OF : 1995ATTENDING PHYS: SAGE GOMEZ DO DATE: 10/15/20 MR#: [id number] PROCEDURE: 10/15/2020HISTORY:Zaria is a 25-year-old female [...] was placed in the bladder for [address] [place] [address] OPERATIVE SUMMARYNAME: JOCELINE Nguyễn DATE OF : 1995ATTENDING PHYS: SAGE GOMEZ DO DATE: 10/15/20 MR#: [id number]. We then turned our attention to the [...] send a copy of this report to [facility].DD: SAGE GOMEZ DO 10/29/20 09:03DT: MARCUS 10/29/20 09:19DS: SAGE JOZEFSHREYASDO 01/03/21 14:45 2 Name Value Range Interpretation Code Description Data Rachel rce(s) Supporting Document(s) ID Date Data Source [id number] 12/20/2020 01:44:00 PM EDT [facility] ([facility]) Name Value Range Interpretation Code Description Data Rachel rce(s) Supporting Document(s) Pelvic Laboratory test result [facility] ([facility]) ID Date Data Source [id number] 12/19/2020 07:24:00 PM EDT [facility] [address] [place] [address] PHONE: [phone] FAX: [phone] Name .................. : JOCELINE DOANSLAVA Nguyễn Acct Number.................. : [id number] ROOM. ................. : TR-06 Number ................... : [id number] Stay type ............. : E/R Discharge Date......... ... : 12/19/20 Admit Date ......... : 12/19/20 Admit Phys .................... : YUE WILKINS Date of ....... : 1995 Family Phys ................... : JOCELYNE VEGA Phone .................. : [phone] Age ................................ : 25 Film# .................. .:[id number] Sex ................................. : F Unsigned transcriptions are preliminary reports and do not represent a medical or legal document TRANSVAGINAL(NON OB) [id number] COMPLETE:12/19/20 15:04 KNB [id number] Reason(s): left pelvic pain, 5.8 cm ovarian [...] 12/19/20 19:24, JWS Page 1 of 2 [facility] [address] [place] [address] PHONE: [phone] FAX: [phone] Name .................. : JOCELINE Nguyễn Acct Number.................. : [id number] ROOM. ................. : TR-06 MR Number ................... : [id number] Stay type ............. : E/R Discharge Date......... ... : 12/19/20 Admit Date ......... : 12/19/20 Admit Phys .................... : YUE WILKINS Date of ....... : 1995 Family Phys ................... : JOCELYNE VEGA Phone .................. : [phone] Age ................................ : 25 Film# .................. .:[id number] Sex ................................. : F Unsigned transcriptions are preliminary reports and do not represent a medical or legal document TRANSVAGINAL(NON OB) [id number] COMPLETE:12/19/20 15:04 KNB 40798 Reason(s): left pelvic pain, 5.8 cm ovarian cyst on CT 12-18-20 Transcribe Initials: RIANNA , Transcribe Date: 12/19/20 18:40, Dictation Date: Copy for: EMERGENCY DEPT via mode Copy for: 710 MED REC DISCHARGED Page 2 of 2 Name Value Range Interpretation Code Description Data Rachel rce(s) Supporting Document(s) ID Date Data Source [id number] 12/19/2020 01:35:00 PM EDT [facility] 1 OrderSheet [facility] Emergency Department [address] [place] [address] Phone #: ext- [phone] 12/19/2020 13:29 Patient: ZARIA CAR Sex: F : 1995 Age: 25yWEIGHT:72.5 kg (S)ALLERGIES: No Known Drug AllergyCHIEF COMPLAINT: pelvic painDIAGNOSIS: Cyst of ovaryLAB ORDERSOrder Description Priority Entered Acknowledged InitialedDIAGNOSTIC STUDY ORDERSOrder Description Priority Entered Acknowledged InitialedUS STAT 14:12/19/2020 14:45 Araceli,TRANSVAGINAL Tj Turner [place] R.N.(NON OB) MAzulDAzul;(Oxygen?(No)) Reason for Study: left pelvic pain, 5.8 cm ovarian cyst on CT 4-16-93INOFCFMFZF/IV/DRIP/FLUID ORDERSOrder Description Pr iority Entered Acknowledged InitialedNS IV 500 mL 14:12/19/2020 14:42 Araceli,Bolus: : Bolus 500 Julianerin, Tj [place] R.N.mL, then 150 mL/hr M.D.;(X1)Toradol 15 mg IVP 14:12/19/2020 14:41 Araceli,X1 dose: 15 mg Turrin, Tj [place] R.N.(NOW x1) M.DAzul;Ativan IVP 1 mg 14:12/19/2020 14:41 Araceli,(HIGH ALERT Turrin, Tj [place] R.N.MEDICATION) MAzulDAzul;GENERAL ORDERSOrder Description Priority Entered Acknowledged Initialed[Electronically signed by [place] Charles R.N. (16:10 12/19/2020)][Electronically signed by Tj Turner M.D. (16:39 12/19/2020)][Electronically locked by [place] Charles R.N. (16:12/19/2020)] Name Value Range Interpretation Code Description Data Rachel rce(s) Supporting Document(s) ID Date Data Source [id number] 12/19/2020 01:35:00 PM EDT [facility] 1 Medication Reconciliation Report [facility] Emergency Department [address] [place] [address] Phone #: ext- [phone] 12/19/2020 13:29 Patient: ZARIA CAR Sex: F [...] 14 tablet. Refills: 0. Substitution permitted.Pharmacy - [id number] - [address], [place] [id number]. . -- Tj Turner M.D. Name Value Range Interpretation Code Description Data Rachel cordero(s) Supporting Document(s) ID Date Data Source [id number] 12/19/2020 01:35:00 PM EDT [facility] 1 Medication Administration Record [facility] Emergency Department [address] [place] [address] Phone #: ext [phone] 12/19/2020 13:29 [id number] Sex: F : 1995 Age: 25yWeight: 72.5 kgHeight/Length: 67 inBMI: 25.1ALLERGIES: No Known Drug Allergy Date/Time Medication Administered Medication OrderedStart NS [IV] NS IV 500 mL Bolus: : Bolus [id number] 12/19/2020 Dose: IV Fluids mL, then 150 mL/hr (X1)[place] Charles R.N. Bolus: 500 mL over 1 hour(s)---- Dispensed: 500 mL bagStop Site: #1 left AC15:58 1LofGeorgia shankar R.N.Given TORADOL [IVP] (KETOROLAC Toradol 15 mg IVP X1 dose: 15 mg14:41 12/19/2020 TROMETHAMINE) (NOW x1)[place] Charles R.N. Dose: 15 mg IVP Site: #1 left ACGiven ATIVAN [IVP] (LORAZEPAM) Ativan IVP 1 mg (HIGH ALERT14:41 12/19/2020 Dose: 1 mg IVP MEDICATION)[place] Charles R.N. Site: #1 left AC Name Value Range Interpretation Code Description Data Rachel rce(s) Supporting Document(s) ID Date Data Source [id number] 12/19/2020 01:35:00 PM EDT [facility] 1 General Instructions [facility] System Emergency Department [address] [place] [address] Phone #: ext- [phone] 12/19/2020 13:29 [id number] Sex: F : 1995 Age: 25ySingle left ovarian cyst (complex, hemorrhagic vs. endometrioma). No torsion of ovary.INSTRUCTIONS Drink plenty of fluids. Do not smoke. No alcohol. (YOU HAVE AN APPOINTMENT TOMORROW AT [facility] AT 13:[address] JOHNSON).Warnings: Further evaluation is necessary in order to conduct further tests (RN TRIAGE ON 12/20 AT 13:05HRS). It is very [...] 14 tablet. Refills: 0. Substitution permitted.Pharmacy - [facility] #[id number] - [address], [place] [id number]. FaxNumber: .Follow-up:Return to the emergency department as needed. Follow up with an claims director tomorrow as scheduled.Reason for referral: evaluation and treatment. Summary of care provided to patient via paper.Understanding of the discharge instructions verbalized by patient. Expected course of illness, dischargeinstructions, activity level, diet, prescriptions x1, follow-up appointment and risks and benefits of treatmentreviewed with patient and understanding verbalized. Agrees to plan of care.Follow-up with: [facility], , , [address] [place], [address] Follow up tomorrow as scheduled. Reason for referral: evaluation and treatment. Summary of careprovided to patient via paper. 2 General Instructions [facility] Emergency Department [address] [place] [address] Phone #: ext- [phone] 12/19/2020 13:29 Patient: ZARIA CAR Sex: Tio : 1995 Age: 25y ADDITIONAL INFORMATIONOvarian CystsThe [...] pain, your healthcare provider may recommend using gfyz-mcm-oqrsgpi pain medicine. If needed, your provide may [...] check if a cyst 3 General Instructions [facility] Emergency Department [address] [place] [address] Phone #: ext- [phone] 12/19/2020 13:29 Patient: [...] Weakness, dizziness, or fainting Abnormal vaginal bleeding [id number] [employer] [place] [address]. All rights reserved. This information is not intended as asubstitute for professional medical care. Always follow your healthcare professional's instructions. You have been given the following additional information: Ovaria n Cyst(Electronically signed by Tj Turner M.D. 12/19/2020 16:39) Name Value Range Interpretation Code Description Data Rachel rce(s) Supporting Document(s) ID Date Data Source [id number] 12/19/2020 01:35:00 PM EDT [facility] 1 Clinical Report - Nurses [facility] Emergency Department [address] [place] [address] Phone #: ext- [phone] 12/19/2020 13:29 Patient: ZARIA CAR Sex: F : 1995 Age: 25yTRIAGEArrived by private vehicle. Historian: patient. Accompanied by family. ( presents with c/o abd. pain, ptwas just seen here lastnight and instructed to call FITTING ROOM ASSOCIATE and to come back if no relief with meds. calledclinic and soonest appt 01/05).Triage time: 13:40 12/19/2020. Acuity: LEVEL 4.Chief Complaint: ABDOMINAL PAIN.Alert. No acute distress.This started yesterday.Treatment COMBINATION OPERATOR:Took Tylenol and ibuprofen. Seen within the last [...] 12/19/20 Shaylee Le RN.MedicationsNone. --13:53 12/19/20 Shaylee Le RN.AllergiesNo Known Drug Allergy. --13:53 12/19/20 Shaylee Le RN.PROBLEMS:Ectopic .Ovarian Cyst.Migraine Headache. --13:53 12/19/20 Shaylee Le RN.Medication/allergy information source: the patient and patient's previous visit record. --13:55 12/19/20Shaylee Le RN.ADDITIONAL SURGERIES:Cholecystectomy.. 2 Clinical Report - Nurses [facility] Emergency Department [address] [place] [address] Phone #: ext- [phone] 12/19/2020 13:29 Patient: [...] verified and 3 Clinical Report - Nurses [facility] Emergency Department [address] [place] [address] Phone #: ext- [phone] 12/19/2020 13:29 Patient: [...] upon discharge. Total amount infused: 500 mL. --16:12/19/20 Georgia Charles R.N.DISPOSITION / DISCHARGE 16:04 12/19/20. BP: 125/71. MAP: 89. HR: 84. O2 saturation: 100%. Temp: 98.3 F. --16:04 12/19/20 Travis Damon 16:12/19/2020 Site #1 removed upon discharge. Catheter intact. Pressure dressing and bandaid applied. --16:12/19/20 Georgia Charles R.N. 4 Clinical Report - Nurses [facility] Emergency Department [address] [place] [address] Phone #: ext- [phone] 12/19/2020 13:29 [id number] Sex: F : 1995 Age: 25y Condition at departure: improved. No learning barriers present. Reviewed warnings. Reviewed medication(s). Treatments reviewed. Reviewed referrals. Written instructions provided in Indian. The patient was discharged by the physician. She was discharged home. She left ambulatory and via private vehicle. Practice Managers driving. --16:09 12/19/20 Georgia Charles R.N. 16:09 12/19/20. Pain level now: 0/10. --16:10 12/19/20 Georgia Charles R.N.Locked/Released at 12/19/2020 16:10 by Georgia Charles R.N. Name Value Range Interpretation Code Description Data Rachel rce(s) Supporting Document(s) ID Date Data Source [id number] 12/19/2020 01:35:00 PM EDT [facility] 1 Clinical Report - Physicians/Mid Levels [facility] Emergency Department [address] [place] [address] Phone #: ext- [phone] 12/19/2020 13:29 Patient: [...] US done, was told to f/u w RN TRIAGE clinic, called today and couldn't get in [...] Allergies: 2 Clinical Report - Physicians/Mid Levels [facility] Emergency Department [address] [place] [address] Phone #: ext- [phone] 12/19/2020 13:29 Patient: ZARIA CAR Sex: F [...] saturation: 100%. Temp: 98.5 F.Pain level now: 6/10. Have been reviewed. Oxygen saturation normal.Appearance: Alert. [...] better; we got her an appt w RN TRIAGE [facility] [place] tomorrow at 13:05 hrs; d/c instructions given, [...] controlled; 3 Clinical Report - Physicians/Mid Levels [facility] Emergency Department [address] [place] [address] Phone #: ext- [phone] 12/19/2020 13:29 Patient: [...] alcohol. (YOU HAVE AN APPOINTMENT TOMORROW AT [facility] AT 13:[address] JOHNSON). Warnings: Further evaluation is necessary in order to conduct further tests (RN TRIAGE ON 12/20 AT 13:05 HRS). It is [...] tablet. Refills: 0. Substitution permitted. Pharmacy - [facility] #[id number] - [address], [place] [id number]. . Follow-up: Return to the emergency department as needed. Follow up with an claims director tomorrow as scheduled. Reason for referral: evaluation and treatment. Summary of care provided to patient via paper. Understanding of the discharge instructions verbalized by patient. Expected course of illness, discharge instructions, activity level, diet, prescriptions x1, follow-up appointment and risks and benefits of treatment reviewed with patient and understanding verbalized. Agrees to plan of care. Follow-up with: [facility], , , [address] [place] [address], [facility] Follow up tomorrow as scheduled. Reason for referral: evaluation and treatment. Summary of care provided to patient via paper. 4 Clinical Report - Physicians/Mid Levels [facility] Emergency Department [address] [place] [address] Phone #: ext- [phone] 12/19/2020 13:29 Patient: ZARIA CAR Sex: F : 1995 Age: 25y(Electronically signed by Tj Turner M.D. 12/19/2020 16:39) Name Value Range Interpretation Code Description Data Rachel rce(s) Supporting Document(s) ID Date Data Source [id number] 12/19/2020 09:06:00 AM EDT [facility] [address] [place] [address] PHONE: [phone] FAX: [phone] Name .................. : JOCELINE GARCIA Chan Acct Number.................. : [id number] [facility] ................. [facility] Number ................... : [id number] Stay type ............. : E/R Discharge Date......... ... : 12/19/20 Admit Date ......... : 12/18/20 Admit Phys .................... : COONEYNORM Date of ....... : 1995 Family Phys ................... : JOCELYNE VEGA Phone .................. : [phone] Age ................................ : 25 Film# .................. .:[id number] Sex ................................. : F Unsigned transcriptions are preliminary reports and do not represent a medical or legal document CT ABD & PELVIS W/ IV ONLY [id number] COMPLETE:12/19/20 04:47 ARLENE [address]9215 Reason(s): Abdominal Pain CT ABDOMEN AND PELVIS WITH IV CONTRAST INDICATION: Abdominal pain COMPARISON: 4 20 2021 IV CONTRAST: 75 cc Isovue-370 One or [...] the lesion. No Page 1 of 2 [place] [address] PHONE: [phone] FAX: [phone] Name .................. : JOCELINE GARCIA Chan Acct Number.................. : [id number] ROOM. ................. : [facility]34 Number ................... : [id number] Stay type ............. : E/R Discharge Date......... ... : 12/19/20 Admit Date ......... : 12/18/20 Admit Phys .................... : ADDISON Date of ....... : Family Phys ................... : JOCELYNE VEGA Phone .................. : [phone] Age ................................ : 25 Film# .................. .:[id number] Sex ................................. : F Unsigned transcriptions are preliminary reports and do not represent a medical or legal document CT ABD & PELVIS W/ IV ONLY [id number] COMPLETE:12/19/20 04:47 ARLENE [id number] Reason(s): Abdominal Pain nodularity. Moderately prominent enhancing [...] rce(s) Supporting Document(s) ID Date Data Source [id number] 12/19/2020 09:06:00 AM EDT [facility] [address] [place] [address] PHONE: [phone] FAX: [phone] Name .................. : JOCELINE Nguyễn Acct Number.................. : [id number] ROOM. ................. : [facility]-34 MR Number ................... : [id number] Stay type ............. : E/R Discharge Date......... ... : 12/19/20 Admit Date ......... : 12/18/20 Admit Phys .................... : COONEYNORM Date of ....... : 1995 Family Phys ................... : JOCELYNE [email or web address] Phone .................. : [phone] Age ................................ : 25 Film# .................. .:[id number] Sex ................................. : F Unsigned transcriptions are preliminary reports and do not represent a medical or legal document ABDOMEN MULTIPLE VIEW [id number] COMPLETE:12/19/20 04:47 ARLENE 41217 Reason(s): Abdominal Pain ABDOMINAL RADIOGRAPH SUPINE AND [...] NÉSTOR Transcribe Initials: SSR, Transcribe Date: 12/19/20 08:53, Dictation Date: Page 1 of 2 [facility] [address] [place] [address] PHONE: [phone] FAX: [phone] Name .................. : JOCELINE Nguyễn Acct Number.................. : [id number] [facility]. ................. [facility] Number ................... : [id number] Stay type ............. : E/R Discharge Date......... ... : 12/19/20 Admit Date ......... : 12/18/20 Admit Phys .................... : COONEYNORM Date of ....... : 1995 Family Phys ................... : JOCELYNE VEGA Phone .................. : [phone] Age ................................ : 25 Film# .................. .:[id number] Sex ................................. : F Unsigned transcriptions are preliminary reports and do not represent a medical or legal document ABDOMEN MULTIPLE VIEW 63237 COMPLETE:12/19/20 04:47 ARLENE 11608 Reason(s): Abdominal Pain Copy for: EMERGENCY DEPT via modem Copy for: 710 MED REC DISCHARGED Page 2 of 2 Name Value Range Interpretation Code Description Data Rachel rce(s) Supporting Document(s) ID Date Data Source [id number] 12/18/2020 10:14:00 PM EDT [facility] 1 OrderSheet [facility] Emergency Department [address] [place] [address] Phone #: ext- [phone] 12/18/2020 22:21 Patient: ZARIA CAR Sex: F : 1995 Age: 25yWEIGHT:72.5 kg HEIGHT:67 inches BMI:25.1ALLERGIES: No Known Drug AllergyCHIEF COMPLAINT: abdominal painDIAGNOSIS: Cyst of ovaryLAB ORDERSOrder Description Priority Entered Acknowledged InitialedUrinalysis (Clean STAT 22:49 12/18/2020 Ack'd: 22:50 22:51 Lynn Guerrero [facility]) Jenny Akers MD; Vania GuerreroCG Urine Qual STAT 22:49 12/18/2020 Ack'd: 22:50 [...] Jenny Akers MD; Vania Guerrero 2 OrderSheet [facility] Emergency Department [address] [place] [address] Phone #: ext- [phone] 12/18/2020 22:21 Patient: ZARIA CAR Sex: F : 1995 Age: 25ymL (X1)Zofran IVP 4 mg 23:28 12/18/2020 Ack'd: 23:38 23:44 Oswald Guerrero Norma MD; Vania GuerreronAcetaminophen IV 00:21 12/19/2020 Ack'd: 00:28 00:41 Yolanda,1000 mg (NOW x1, Jenny Akers MD; Vania GuerreronInfuse over 15minutes)Toradol IVP 30 mg 00:21 12/19/2020 Ack'd: 00:28 00:32 Yolanda,(NOW x1) Jenny Akers MD; Vania GuerreronGENERAL ORDERSOrder Description Priority Entered Acknowledged Initialed[Electronically signed by Jenny Akers MD (03:56 12/19/2020)][ Electronically signed by Vania Guerrero (04:00 12/19/2020)][Electronically locked by Vania Guerrero (04:00 12/19/2020)] Name Value Range Interpretation Code Description Data Rachel rce(s) Supporting Document(s) ID Date Data Source [id number] 12/18/2020 10:14:00 PM EDT [facility] 1 Medication Reconciliation Report [facility] Emergency Department [address] [place] [address] Phone #: ext- [phone] 12/18/2020 22:21 Patient: [...] rce(s) Supporting Document(s) ID Date Data Source [id number] 12/18/2020 10:14:00 PM EDT [facility] 1 Medication Administration Record [facility] Emergency Department [address] [place] [address] Phone #: dhm- [phone] 12/18/2020 22:21 Patient: ZARIA CAR Sex: F : 1995 Age: 25yWeight: 72.5 kgHeight/Length: 67 inBMI: 25.1ALLERGIES: No Known Drug Allergy Date/Time Medication Administered Medication OrderedStart IV NS IV NS 1000 mL Bolus : Bolus 480234:43 12/18/2020 Dose: IV Fluids mL (X1)Vania Guerrero, Bolus: 1000 mL over 40 minute(s)---- Dispensed: 1000 mL bagStop Site: #1 left AC00:42 1BVania kirkland,Given ZOFRAN [IVP] (ONDANSETRON HCL) Zofran IVP 4 mg23:44 12/18/2020 Dose: 4 mg IVPBVania kirkland, Site: #1 left ACStart Ofirmev * Acetaminophen IV 1000 mg (NOW00:41 12/19/2020 Dose: 1 gm * IV x1, Infuse over 15 minutes)Vania Guerrero,----Stop01:15 12/19/2020Vania kirklandGiven TORADOL [IVP] (KETOROLAC Toradol IVP 30 mg (NOW x1)00:32 12/19/2020 TROMETHAMINE)Vania Guerrero, Dose: 30 mg IVP Site: #1 left AC Name Value Range Interpretation Code Description Data Rachel rce(s) Supporting Document(s) ID Date Data Source [id number] 12/18/2020 10:14:00 PM EDT [facility] 1 General Instructions [facility] Emergency Department [address] [place] [address] Phone #: ext- [phone] 12/18/2020 22:21 Patient: ZARIA CAR Sex: F : 1995 Age: 25ySingle left ovarian cyst.pelvic congestion.INSTRUCTIONSNo strenuous activity. Do not work for three days.Drink plenty of fluids.(Please also follow up with your primary care physician. return if worse or any new symptoms. taketylenol andmotrin for pain. please call your entry level mechanical engineer and be seen in the next 2 [...] patient. ADDITIONAL INFORMATIONOvarian Cysts 2 General Instructions [facility] Emergency Department [address] [place] [address] Phone #: ext- [phone] 12/18/2020 22:21 Patient: [...] pain, your healthcare provider may recommend using fzjd-ksj-eplyceu pain medicine. If needed, your provide may [...] provider, or as advised. 3 General Instructions [facility] Emergency Department [address] [place] [address] Phone #: [phone] utq- [phone] 12/18/2020 22:21 Patient: ZARIA CAR Sex: F : 1995 Age: 25yWhen to seek medical adviceCall your healthcare provider right away if any of these occur: Pain worsens or fails to get better with home treatment Fever of 100.4F (38C) or higher (or other fever amount directed by your healthcare provider) Nausea and vomiting Weakness, dizziness, or fainting Abnormal vaginal bleeding [id number] [employer]. [address] [place] [address]. All rights reserved. This information is not intended as asubstitute for professional medical care. Always follow your healthcare professional's instructions. You have been given the following additional information: Ovarian Cyst No strenuous activity. 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 --22:47 12/18/20 Rosie Guerrero2:42 12/18/20. BP: 123/74. [...] Vania Guerrero. 2 Clinical Report - Nurses [facility] Department [address] [place] [address] Phone #: ext- [phone] 12/18/2020 22:21 Patient: ZARIA CAR Sex: F [...] PROGRESS NOTES 3 Clinical Report - Nurses [facility] Department [address] [place] [address] Phone #: ext- [phone] 12/18/2020 22:21 Patient: ZARIA CAR Sex: F [...] allergic reaction and precautions.Verbalizes understanding. --23:43 12/18/20 Tanja Guerreron23:44 12/18/2020 Zofran (Ondansetron HCl) IVP 4 mg [...] understanding. --00:32 12/19/20 Zoya Guerrero transported to [place] by wheelchair with mask and tech. --00:32 12/19/20 Vania Guerrero00:41 12/19/2020 Ofirmev * IV 1 gm --00:41 12/19/20 Vania Guerrero00:42 12/19/2020 IV Fluids IV NS via IV site #1 Discontinued: bag #1 infused. Total amount infused: 1000mL. IV patency e stablished. IV site checked: no pain, redness, or swelling. IV flushed thoroughly. --00: Zoya Guerrero returned from [place] by wheelchair with mask and tech. --00:42 12/19/20 Vania Guerrero01:28 12/19/20. BP: 118/68. HR: 70. RR: 16. O2 saturation: 99%. Pain level now /10. --01:28 12/19/20Vania Guerrero 4 Clinical Report - Nurses [facility] [address] [place] [address] Phone #: ext- [phone] 12/18/2020 22:21 Patient: [...] 100%. Temp: 98.1 F. Pain level now 10. --02:40 12/19/20 Vania Guerrero 01:15 12/19/2020 Ofirmev [...] Patient verbalized understanding. Written instructions provided in Indian. The patient was discharged by the physician. She was discharged home and unaccompanied at time of discharge. She left ambulatory and via private vehicle. Patient driving. --04:00 12/19/20 Yolanda Vania 03:59 12/19/20. BP: 108/64. HR: 71. RR: 16. O2 saturation: 99%. Temp: 97.7 F. Pain level now 06/20. --04:00 12/19/20 Gee Guerrero.Locked/Released at 12/19/2020 04:00 by Vania Guerrero Name Value Range Interpretation Code Description Data Rachel rce(s) Supporting Document(s) ID Date Data Source [id number] 12/18/2020 10:14:00 PM EDT [facility] 1 Clinical Report - Physicians/Mid Levels [facility] Department [address] [place] [address] Phone #: ext- [phone] 12/18/2020 22:21 Patient: [...] None. Allergies: 2 Clinical Report - Physicians/Mid [facility] Emergency Department [address] [place] [address] Phone #: ext- [phone] 12/18/2020 22:21 Patient: ZARIA CAR Sex: F [...] 2.5) 3 Clinical Report - Physicians/Mid Levels [facility] [address] [place] [address] Phone #: ext- [phone] 12/18/2020 22:21 Patient: ZARIA CAR Sex: F [...] Male GFR Interprentation 20-49 yrs >60 mL/min Mmugbz56-29 yrs >56 mL/min Normal 60-69 yrs >49 mL/min Normal 70-79yrs>42 mL/min Normal 80 and above >35 mL/min Normal Female GFRInterpretation 20-39 yrs >60 mL/min Normal 40-49 yrs >58 mL/minNormal 50-59 yrs >51 mL/min Normal 60-69 yrs >45 mL/min Jelsri53-49 yrs >39 mL/min Normal 80 and above >32 mL/min NormalLactic Acid: (ABILIO: 12/18/2020 23:35) ( WygRcvd 12/18/2020 23:50) Final results Test Result Flag Units (Reference) LACTIC ACID 1.3 MMOL/L (0.2 - 2.2)Lipase: (ABILIO: 12/18/2020 23:35) ( WygRcvd 12/19/2020 00:07) Final results Test Result Flag Units (Reference) LIPASE 31 U/L (13 - 60)Urinalysis: (ABILIO: 12/18/2020 22:51) ( MsgRcvd 12/18/2020 23:10) Final results Test Result Flag Units (Reference) URINALYSIS URINALYSIS 4 Clinical Report - Physicians/Mid Levels [facility] Department [address] [place] [address] Phone #: ext- [phone] 12/18/2020 22:21 Patient: [...] NEGATIVE (NORMAL: NEGAT { KIT LOT # [id number] ){ KIT EXP DATE 05.10.22 ){ PROCEDURAL [...] 5.2x3.5cm. I encouraged her to f/u with manager payroll this week and to return if worseor any new symptoms. Patient/family counseled. Disposition: Discharged. Condition: good and stable.CLINICAL IMPRESSION Single left ovarian cyst. pelvic congestion.INSTRUCTIONS 5 Clinical Report - Physicians/Mid Levels [facility] [address] [place] [address] Phone #: ext- [phone] 12/18/2020 22:21 [id number] Sex: F : 1995 Age: 25y No strenuous activity. Do not work for three days. Drink plenty of fluids. (Please also follow up with your primary care physician. return if worse or any new symptoms. take tylenol andmotrin for pain. please call your entry level mechanical engineer and be seen in the next 2 [...] rce(s) Supporting Document(s) ID Date Data Source [id number] 12/19/2020 12:07:00 AM EDT [facility] Name Value Range Interpretation Code Description Data Rachel rce(s) Supporting Document(s) Lipase [Enzymatic activity/volume] in Serum or Plasma 31 U/L 13 - 60 [facility] ID Date Data Source [id number] 12/19/2020 12:07:00 AM EDT [facility] Name Value Range Interpretation Code Description Data Rachel rce(s) Supporting Document(s) COMPREHENSIVE METABOLIC PANEL [facility] COMPREHENSIVE METABOLIC PANEL Sodium [Moles/volume] in Serum or Plasma 138 mEq/L 134 - 153 [facility] Potassium [Moles/volume] in Serum or Plasma 3.8 mEq/L 3.6 - 5.0 [facility] Chloride [Moles/volume] in Serum or Plasma 103 mEq/L 98 - 107 [facility] Carbon dioxide, total [Moles/volume] in Serum or Plasma 27 MEQ/L 22 - 30 [facility] Glucose [Mass/volume] in Serum or Plasma 85 MG/DL 70 - 99 [facility] BUN 10 MG/DL 7 - 21 [facility] Creatinine [Mass/volume] in Serum or Plasma 0.6 MG/DL 0.7 - 1.5 L [facility] BUN/CREAT 17 8 - 27 [facility] al Protein [Mass/volume] in Serum or Plasma 6.4 G/DL 6.3 - 8.2 [facility] Albumin [Mass/volume] in Serum or Plasma 4.1 G/DL 3.9 - 5.0 [facility] Globulin [Mass/volume] in Serum by calculation 2.3 GM/DL 2.4 - 3.2 L [facility] A/G RATIO 1.8 0.8 - 2.0 [facility] Calcium [Mass/volume] in Serum or Plasma 9.7 MG/DL 8.4 - 10.2 [facility] Bilirubin.total [Mass/volume] in Serum or Plasma <0.7 MG/DL 0.2 - 1.3 [facility] Alkaline phosphatase [Enzymatic activity/volume] in Serum or Plasma 83 U/L 38 - 126 [facility] Aspartate aminotransferase [Enzymatic activity/volume] in Serum or Plasma 13 U/L 5 - 40 [facility] Alanine aminotransferase [Enzymatic activity/volume] in Seru m or Plasma 7 U/L 7 - 56 [facility] Anion gap 3 in Serum or Plasma 8.0 mmol/L 8.0 - 16.0 [facility] AGE 25 yrs [facility] al NON-AA GFR >60 mL/min [facility] ital AFR AMER GFR >60 mL/min [facility] Ho spital Male GFR In terprentation 20-49 [...] >32 mL/min Normal ID Date Data Source [id number] 12/18/2020 11:50:00 PM EDT [facility] Name Value Range Interpretation Code Description Data Rachel rce(s) Supporting Document(s) Lactate [Moles/volume] in Serum or Plasma 1.3 MMOL/L 0.2 - 2.2 [facility] ID Date Data Source [id number] 12/18/2020 11:44:00 PM EDT [facility] Name Value Range Interpretation Code Description Data Rachel rce(s) Supporting Document(s) CBC W/AUTOMATED DIFF [facility] COMPLETE BLOOD COUNT Leukocytes [#/volume] in Blood by Automated count 8.3 10^3/uL 4.2 - 1 1.0 [facility] Erythrocytes [#/volume] in Blood by Automated count 3.98 10^6/uL 4. 20 - 5.40 L [facility] Hemoglobin [Mass/volume] in Blood 13.0 g/dL 12.0 - 16.0 [facility] Hematocrit [Volume Fraction] of Blood by Automated count 38.8 % 3 7.0 - 47.0 [facility] Erythrocyte mean corpuscular volume [Entitic volume] by Auto mated count 97.5 fL 81.0 - 101 [facility] Erythrocyte mean corpuscular hemoglobin [Entitic mass] by Automated count 32.7 pg 27.0 - 34.0 [facility] Erythrocyte mean corpuscular hemoglobin concentration [Mass/volume] by Automated count 33.5 g/dL 31.0 - 36.0 [facility] Erythrocyte distribution width [Ratio] by Automated count 13.2 % 11.5 - 14.5 [facility] Platelets [#/volume] in Blood by Automated count 203 10^3/uL 150 - 45 0 [facility] Platelet mean volume [Entitic volume] in Blood by Automated count 10.8 fL 7.4 - 10.4 H [facility] Neutrophils/100 leukocytes in Blood by Automated count 59.2 % 37. 0 - 80.0 [facility] Lymphocytes/100 leukocytes in Blood by Manual count 29.7 % 25.0 - 40.0 [facility] Monocytes/100 leukocytes in Blood by Automated count 8.2 % 3.0 - 8.0 H [facility] Eosinophils/100 leukocytes in Blood by Automated count 2.1 % 0.0 - 7.0 [facility] Basophils/100 leukocytes in Blood by Automated count 0.4 % 0.0 - 2.5 [facility] %IG 0.4 % 0.0 - 0.0 H [facility] al %NRBC 0.0 % 0.0 - 0.0 [facility] al Neutrophils [#/volume] in Blood by Automated count 4.89 10^3/uL 2.00 - 6.90 [facility] Lymphocytes [#/volume] in Blood by Automated count 2.45 10^3/uL 0.60 - 3.40 [facility] Monocytes [#/volume] in Blood by Automated count 0.68 10^3/uL 0.00 - 0.90 [facility] Eosinophils [#/volume] in Blood by Automated count 0.17 10^3/uL 0.00 - 0.70 [facility] Basophils [#/volume] in Blood by Automated count 0.03 10^3/uL 0.00 - 0.20 [facility] #IG 0.03 10^3/uL 0.00 - 0.10 [facility] ospital #NRBC 0.00 10^3/uL 0.00 - 0.00 [facility] MANUAL DIFF NOT INDICATED [facility] RBC MORPH NOT INDICATED [facility] sp[facility] ID Date Data Source [id number] 12/18/2020 11:10:00 PM EDT [facility] Name Value Range Interpretation Code Description Data Rachel rce(s) Supporting Document(s) HCG URINE QUAL NEGATIVE NORMAL: NEGATIVE [facility] HCG URINE QL REENTER NEGATIVE NORMAL: NEGATIVE [facility] { KIT LOT # [id number] ){ KIT EXP DATE 05.10.22 ){ PROCEDURAL CONTROL VALID ) ID Date Data Source [id number] 12/18/2020 11:09:00 PM EDT [facility] Name Value Range Interpretation Code Description Data Rachel rce(s) Supporting Document(s) [facility] SOURCE R [facility] COL[facility] yellow NORMAL: Yellow [facility] CLARITY turbid NORMAL: Clear [facility] sp[facility] Specific gravity of Urine by Test strip 1.020 1.001 - 1.030 [facility] pH 6.5 5 - 9 [facility] Glucose [Mass/volume] in Urine by Test strip NORM NORMAL: Negat [facility] Bilirubin.total [Presence] in Urine by Test strip NEG NORMAL: Negative [facility] Ketones [Presence] in Urine by Test strip 5 NORMAL: Negative [facility] Protein [Mass/volume] in Urine by Test strip NEG NORMAL: Negat [facility] Nitrite [Presence] in Urine by Test strip NEG NORMAL: Negative [facility] BLOOD NEG NORMAL: Negative [facility] LEUK EST 25 NORMAL: Negative [facility] Urobilinogen [Mass/volume] in Urine by Test strip NOR less nathalia n 1.0 mg/dL [facility] MICROSCOPIC See Below [facility] ital WBC 1 - 3 NORMAL: NONE SEEN [facility] Erythrocytes [#/volume] in Urine by Test strip 0 - 1 NORMAL: NON E SEEN [facility] EPITHELIAL MANY NORMAL: NONE SEEN [facility] Bacteria [Presence] in Urine sediment by Light microscopy 1+ SMALL NORMAL: NONE SEEN [facility] Mucus [Presence] in Urine sediment by Light microscopy 1+ NOR MAL: NONE SEEN [facility] Amorphous sediment [Presence] in Urine sediment by Light dany roscopy 1+ NORMAL: NONE SEEN [facility] ID Date Data Source [id number] 12/02/2020 03:34:00 PM EDT [facility] 1 OrderSheet [facility] Emergency Department [address] [place] [address] Phone #: ext- [phone] 12/02/2020 15:29 Patient: ZARIA CAR Sex: F : 1995 Age: 25yWEIGHT:74.8 kg (S) HEIGHT:67 inches (S) BMI:25.9ALLERGIES: No Known Drug AllergyCHIEF COMPLAINT: Rt, footDIAGNOSIS: AbrasionLAB ORDERSOrder Description Priority Entered Acknowledged InitialedDIAGNOSTIC STUDY ORDERSOrder Description Priority Entered Acknowledged InitialedMEDICATION/IV/DRIP/FLUID ORDERSOrder Description Priority Entered Acknowledged InitialedTdap IM 0.5 mL 17:01 12/02/2020 17:08 Kristopher Robledo RN; Meena RN Per protocol; Bridger Elizondo.AAzul-CBacitracin Zinc 17:47 12/02/2020 18:09 TerryTopical 1 Bridger [...] Kristopher Robledo RN (18:51 12/02/2020)] 2 OrderSheet [facility] Emergency Department [address] [place] [address] Phone #: ext- [phone] 12/02/2020 15:29 Patient: ZARIA CAR Sex: F : 1995 Age: 25y[Electronically signed by Bridger Serra P.A.-C (20:16 12/02/2020)][Electronically locked by Kristopher Robledo RN (18:51 12/02/2020)] Name Value Range Interpretation Code Description Data Rachel rce(s) Supporting Document(s) ID Date Data Source [id number] 12/02/2020 03:34:00 PM EDT [facility] 1 Medication Reconciliation Report [facility] Emergency Department [address] [place] [address] Phone #: ext- [phone] 12/02/2020 15:29 Patient: ZARIA CAR Sex: F [...] Dispense 21 capsule.Refills: 0. Substitution permitted.Pharmacy - [facility] [id number] [facility] [employer] - [id number] [place] [address] ; [place] [address]. .gabapentin 100 mg capsule Take 1 capsule three times a day for 3 days -- Dispense 9 capsule. Refills:0. Substitution permitted.Pharmacy - [facility] [id number] [facility] [employer] - [address] [facility] ; [place] [address]. . -- Bridger Serra P.A.-C Name Value Range Interpretation Code Description Data Rachel rce(s) Supporting Document(s) ID Date Data Source [id number] 12/02/2020 03:34:00 PM EDT [place] [address] Medication Administration Record [facility] Emergency Department [address] [place] [address] Phone #: ext- [phone] 12/02/2020 15:29 Patient: ZARIA CAR Sex: F : 1995 Age: 25yWeight: 74.8 kgHeight/Length: 67 inBMI: 25.9ALLERGIES: No Known Drug Allergy Date/Time Medication Administered Medication OrderedGiven TDAP [IM] Tdap IM 0.5 mL17:08 12/02/2020 Dose: 0.5 mL Johann Zamorano BACITRACIN ZINC [TOPICAL] Bacitracin Zinc Topical 118:04 12/02/2020 Dose: 1 application Ointment Topical applicationTerry Johann Robledo TYLENOL [PO] (APAP) Tylenol 1 g PO X1 dose: 1000 mg17:54 12/02/2020 Dose: 1000 mg Tablets PO (NOW x1)Te Johann Kohler KEFLEX [PO] (CEPHALEXIN Keflex PO 500 mg18:21 12/02/2020 MONOHYDRATE)Kristopher Robledo RN Dose: 500 mg Capsules PO Name Value Range Interpretation Code Description Data Rachel rce(s) Supporting Document(s) ID Date Data Source [id number] 12/02/2020 03:34:00 PM EDT [facility] 1 General Instructions [facility] Emergency Department [address] [place] [address] Phone #: ext- [phone] 12/02/2020 15:29 Patient: ZARIA CAR Sex: F [...] Dispense 21 capsule.Refills: 0. Substitution permitted.Pharmacy - [facility] [place] [address] ; [place] [address]. .gabapentin 100 mg capsu le Take 1 capsule three times a day for 3 days -- Dispense 9 capsule. Refills:0. Substitution permitted.Pharmacy - [facility] [place] [address] ; [place] [address]. .Follow-up:Follow up with your healthcare provider in about two days if not better. Call for an appointment.Understanding of the discharge instructions verbalized by patient. ADDITIONAL INFORMATIONAbrasions 2 General Instructions [facility] Emergency Department [address] [place] [address] Phone #: ext- [phone] 12/02/2020 15:29 Patient: ZARIA CAR Sex: F [...] drainage from the wound 3 General Instructions [facility] Emergency Department [address] [place] [address] Phone #: ext- [phone] 12/02/2020 15:29 Patient: ZARIA CAR Sex: F : 1995 Age: 25y Bleeding from the wound that does not stop after a few minutes of steady, firm pressure Decreased ability to move any body part near the wound [employer]. [address] [place] [address]. All rights reserved. This information is not [...] bandage Red streaks surround the wound area [phone] [employer] [place] [address]. All rights reserved. This information is not intended as asubstitute for professional medical care. Always follow your healthcare professional's instructions. You have been given the following additional information: Abrasions 4 General Instructions [facility] Emergency Department [address] [place] [address] Phone #: ext- [phone] 12/02/2020 15:29 Patient: ZARIA CAR Sex: F : 1995 Age: 25yDressing ChangeYou may walk and bear weight as tolerated. Do not work for five days (To facilitate recovery).(Electronically signed by Bridger Serra P.A.-C 12/02/2020 20:16) Name Value Range Interpretation Code Description Data Rachel rce(s) Supporting Document(s) ID Date Data Source [id number] 12/02/2020 03:34:00 PM EDT [facility] 1 Clinical Report - Nurses [facility] Emergency Department [address] [place] [address] Phone #: ext- [phone] 12/02/2020 15:29 Patient: ZARIA CAR Sex: F : 1995 Age: 25yTRIAGEArrived by private vehicle. Historian: patient.Acuity: LEVEL 4.Chief Complaint: INJURY TO THE RIGHT FOOT.Alert. No acute distress.Occurred 03:33 12/02/2020. The patient sustained a laceration (razor). ( PT reports this morning [id number] am she stepped out of the shower unto a blake razor blade. She reports a moderate amount ofbleeding between her great and 2nd toe on her right foot. She is unsure of her last tetanus shot.).Treatment COMBINATION OPERATOR:None.SEPSIS SCREEN: SIRS SCREEN NEGATIVE. SEPSIS SCREEN NEGATIVE. [...] SURGERIES:Cholecystectomy..Exploratory laparotomy. 2 Clinical Report - Nurses [facility] Emergency Department [address] [place] [address] Phone #: ext- [phone] 12/02/2020 15:29 [id number] Sex: F : 1995 Age: 25y Salpingectomy. [...] on patient. --15:39 12/02/20 Sharron Jimenez R.N.PHYSICAL ZYGTESIFJN05:59 12/02/20. Ambulatory to room.GENERAL / NEURO / [...] Robledo RN 3 Clinical Report - Nurses [facility] Emergency Department [address] [place] [address] Phone #: ext- [phone] 12/02/2020 15:29 Patient: ZARIA CAR Sex: F : 1995 Age: 25y 16:52 12/02/20. BP: 130/82. MAP: 98. HR: 75. RR: 16. O2 saturation: 100%. Temp: 98.7 F (oral). Pain level now: 10/18. --17:00 12/02/20 Kristopher Robledo RN 17:08 12/02/2020 TDAP IM 0.5 mL given(Lot#: [id number], expiration date: 08/14/2022, C Architect: [employer]). Given in the left deltoid. Allergies verified [...] Robledo RN Wound cleansed with sterile saline (1755). Right foot: applied dressing consisting of 4x4 gauze and telfa pad, following the application of antibiotic ointment (bacitracin). Secured with rosy bandage. (5875). --18:10 12/02/20 Kristopher Robledo RN 18:21 12/02/2020 [...] Patient verbalized understanding. Written instructions provided in Indian. The patient was discharged by the physician mortgage assistant. She was discharged home. She left ambulatory and via private vehicle. Patient driving. --18:51 12/02/20 Kristopher Robledo RN.Locked/Released at 12/02/2020 18:51 by Kristopher Robledo RN Name Value Range Interpretation Code Description Data Rachel rce(s) Supporting Document(s) ID Date Data Source [id number] 12/02/2020 03:34:00 PM EDT [facility] 1 Clinical Report - Physicians/[facility] Emergency Department [address] [place] [address] Phone #: ext- [phone] 12/02/2020 15:29 Patient: ZARIA CAR Sex: F [...] complaints 2 Clinical Report - Physicians/Mid Levels [facility] Emergency Department [address] [place] [address] Phone #: ext- [phone] 12/02/2020 15:29 [facility]: [id number] Sex: F : 1995 Age: 25y or [...] restrictions. 3 Clinical Report - Physicians/Mid Levels [facility] Emergency Department [address] [place] [address] Phone #: ext- [phone] 12/02/2020 15:29 Patient: ZARIA CAR Sex: F [...] capsule. Refills: 0. Substitution permitted. [place]acy - [facility] [place] [address] ; [place] [address]. . gabapentin 100 mg capsule Take 1 capsule three times a day for 3 days -- Dispense 9 capsule. Refills: 0. Substitution permitted. Pharmacy - [facility] [place] [address] ; [place] [address]. . Follow-up: Follow up with your healthcare provider in about two days if not better. Call for an appointment. Understanding of the discharge instructions verbalized by patient.(Electronically signed by Bridger Serra P.A.-C 12/02/2020 20:16) Name Value Range Interpretation Code Description Data Rachel rce(s) Supporting Document(s) ID Date Data Source [id number] 10/31/2020 01:46:00 PM EDT [facility] Patient: ZARIA CARo chan Report - [facility] HospitalVisit[facility]: [id number] [place] [address] [phone], FRegistrasaint francis healthcare Date/Time: 10/17/2020 22:30 Weight:72.5 kg. Height/Length:66 inches. [...] 10/18/2020 00:46) Addenda for ZARIA CAR VisitID: [id number] Date: 10/17/2020 10/31/2020 13:31Lab results reviewed. Communicated information to patient. Script for Flagyl 500mg po BID for 5 days called to [facility] in [place]. Pt aware that script called in. (Electronically signed by Maryuri Dasilva R.N. - 10/31/2020 13:31) Name Value Range Interpretation Code Description Data Rachel rce(s) Supporting Document(s) ID Date Data Source [id number] 10/18/2020 07:17:00 AM EDT [facility] [...] Value Range Interpretation Code Description Data Rachel [facility](s) Supporting Document(s) ID Date Data Source [id number] 10/18/2020 03:55:00 AM EDT [facility] Patient: ZARIA CAR Observatio n Report - [facility].VisitID: [id number] [place] [address] [phone], FRegistration Date/Time: 10/17/2020 22:30 Weight:72.5 kg. Height/Length:66 [...] rce(s) Supporting Document(s) ID Date Data Source [id number] 10/20/2020 06:10:00 AM EDT [facility] Name Value Range Interpretation Code Description Data Rachel rce(s) Supporting Document(s) CHLAMYDIA TRACHOMATIS, JUAN Negative Negative [facility] NEISSERIA GONORRHOEAE, JUAN Negative Negative [facility] Performed at: [facility] [address] [address] [place], [place] [id number] Director: Magalie Foster MD, Phone: [phone] ID Date Data Source [id number] 10/19/2020 04:10:00 PM EDT [facility] Name Value Range Interpretation Code Description Data Rachel rce(s) Supporting Document(s) MAREN SPECIES Negative Negative [facility] GARDNERELLA VAGINALIS Positive Negative [facility] spital TRICHOMONAS VAGINALIS Negative Negative [facility] Performed at: [facility] [address] [place], [place] [id number] Director: Magalie Foster MD, Phone: [phone] ID Date Data Source [id number] 10/19/2020 04:05:00 PM EDT [facility] Name Value Range Interpretation Code Description Data Rachel rce(s) Supporting Document(s) Maren species Negative Negative [facility] Gardnerella vaginalis Positive Negative Abnormal ( applies to non-numeric results) [facility] Trichomonas vaginalis Negative Negative [facility] ID Date Data Source [id number] 10/20/2020 06:05:00 AM EDT [facility] Name Value Range Interpretation Code Description Data Rachel rce(s) Supporting Document(s) Chlamydia/GC [facility] TESTS RESULT FLAG UNI TS REF RANGE LAB C trachomatis, JUAN Negative (Negative) 01N gonorrhoeae, JUAN Negative (Negative) 01 FLAG LEGEND: L-Low Normal,H-High Normal,LL-Alert Low,HH-Alert High <-Panic Low,>-Panic High,A-Abnormal,AA-Critical Abnormal Performed at:01 RN [facility] [address] [address] Magalie Foster MD, ID Date Data Source [id number] 10/17/2020 11:51:00 PM EDT [facility] TSYSORDER [id number] Name Value Range Interpretation Code Description Data [facility](s) Supporting Document(s) GLUCOSE 85 mg/dL 74-106 [facility] BLOOD UREA NITROGEN 8 mg/dL 7-18 [facility] ital CREATININE 0.70 mg/dL 0.6-1.0 [facility] SODIUM 140 mmol/L 136-145 [facility] POTASSIUM 3.8 mmol/L 3.5-5.1 [facility] CHLORIDE 102 mmol/L 98-107 [facility] CO2 31 mmol/L 21-32 [facility] CALCIUM 9.1 mg/dL 8.5-10.1 [facility] ANION GAP 7.0 mmol/L 5-12 [facility] GLOMERULAR FILTRATION RATE >90 mL/min [facility] GFR IS CALCULATED IN mL/min/1.73m2 JENNY L FUNCTION: >90MILDLY DECREASED: 60-89MILDY TO MODERATELY DECREASED: 45-59 MODERATELY TO SEVERELY DECREASED: 30-44SEVERELY DECREASED: 15-29RENAL FAILURE: <15 AST 80 U/L 15-37 H [facility] ALT 70 U/L 12-78 [facility] ALKALINE PHOSPHATASE 80 U/L 46-116 [facility] pital TOTAL BILIRUBIN 0.2 mg/dL 0.2-1.0 [facility] TOTAL PROTEIN 7.9 g/dl 6.4-8.2 [facility] ALBUMIN 4.1 gm/dL 3.4-5.0 [facility] ID Date Data Source [id number] 10/17/2020 11:51:00 PM EDT [facility] TSYSORDER [id number] Name Value Range Interpretation Code Description Data Rachel rce(s) Supporting Document(s) MAGNESIUM 1.8 mg/dL 1.8-2.4 [facility] ID Date Data Source [id number] 10/17/2020 11:51:00 PM EDT [facility] TSYSORDER [id number] Name Value Range Interpretation Code Description Data Rachel rce(s) Supporting Document(s) LIPASE 108 U/L 73-393 [facility] ID Date Data Source [id number] 10/17/2020 11:49:00 PM EDT [facility] TSYSORDER [id number] Name Value Range Interpretation Code Description Data Rachel rce(s) Supporting Document(s) PARTIAL THROMBOPLASTIN TIME 26.3 SECONDS 21.2-27.3 [facility] ID Date Data Source [id number] 10/17/2020 11:49:00 PM EDT [facility] TSYSORDER [id number] Name Value Range Interpretation Code Description Data Rachel rce(s) Supporting Document(s) PROTHROMBIN TIME (PATIENT) 9.6 SECONDS 9.1-11.6 [facility] INR 0.92 0.87-1.06 [facility] ID Date Data Source [id number] 10/17/2020 11:32:00 PM EDT [facility] TSYSORDER [id number] Name Value Range Interpretation Code Description Data Rachel rce(s) Supporting Document(s) WHITE BLOOD COUNT 8.1 K/mm3 4.0-10.0 [facility] RED BLOOD COUNT 4.33 M/mm3 4.00-5.50 [facility] HEMOGLOBIN 13.8 gm/dL 12.0-16.0 [facility] HEMATOCRIT 42.4 % 36.0-48.8 [facility] MEAN CELL VOLUME 97.9 fl 80-96 H [facility] MEAN CORPUSCULAR HEMOGLOBIN 31.9 pg 27.0-31.0 H [facility] MEAN CORPUSCULAR HGB CONC 32.5 g/dl 32.0-36.0 [facility] RED CELL DISTRIBUTION WIDTH 12.8 % 10.0-14.5 [facility] PLATELET COUNT 228 K/mm3 172-450 [facility] MEAN PLATELET VOLUME 10.0 fl 9.0-13.0 [facility] pital GRAN % 52.8 % 50-80.0 [facility] IG% 0.0 % 0.0-0.2 [facility] LYMPH % 39.3 % 25.0-50.0 [facility] MONO % 6.5 % 2.0-10.0 [facility] EOS % 1.0 % 0-5.0 [facility] BASO % 0.4 % 0.0-2.0 [facility] GRAN # 4.3 K/mm3 2.0-8.00 [facility] IG# 0.0 K/mm3 0.0-0.2 [facility] LYMPH # 3.2 K/mm3 1.0-5.0 [facility] MONO # 0.5 K/mm3 0.10-1.20 [facility] EOS # 0.1 K/mm3 0.0-0.5 [facility] BASO # 0.0 K/mm3 0.0-0.2 [facility] ID Date Data Source [id number] 10/17/2020 11:28:00 PM EDT [facility] TSYSORDER [id number] Name Value Range Interpretation Code Description Data Rachel rce(s) Supporting Document(s) URINE RBC 5-10 /hpf 0-3 H [facility] URINE EPITHELIAL CELLS 1+ /hpf 0 [facility] ID Date Data Source [id number] 10/17/2020 11:26:00 PM EDT [facility] TSYSORDER [id number] Name Value Range Interpretation Code Description Data Rachel rce(s) Supporting Document(s) URINE COLOR. [facility] URINE APPEARANCE CLEAR [facility] URINE GLUCOSE (UA) NEGATIVE mg/dL NEGATIVE [facility] URINE BILIRUBIN NEGATIVE NEGATIVE [facility] URINE KETONE NEGATIVE mg/dL NEGATIVE [facility] SPECIFIC GRAVITY,URINE 1.020 1.005-1.030 [facility] URINE BLOOD 2+(MODERATE) NEGATIVE [facility] PH,URINE 6.5 5.0-9.0 [facility] URINE PROTEIN NEGATIVE mg/dL NEGATIVE [facility] tianna URINE UROBILINOGEN NORMAL(0.2-1) mg/dL 0-1 [facility] URINE NITRATE NEGATIVE NEGATIVE [facility] URINE LEUKOCYTE ESTERASE NEGATIVE NEGATIVE [facility] ID Date Data Source [id number] 10/17/2020 11:15:00 PM EDT [facility] TSYSORDER [id number] Name Value Range Interpretation Code Description Data Rachel rce(s) Supporting Document(s) HCG URINE NEGATIVE NEGATIVE [facility] ID Date Data Source [id number] 10/10/2020 03:35:00 PM EDT [facility] Name Value Range Interpretation Code Description Data Rachel rce(s) Supporting Document(s) ABO group [Type] in Blood A [facility] Rh [Type] in Blood POSITIVE [facility] AB SCREEN NEGATIVE NORMAL: NEGATIVE [facility] { ABO/RH REENTER A POSITIVE{ AB SCREEN RE-ENTER NEGATIVE ID Date Data Source [id number] 10/10/2020 02:44:00 PM EDT [facility] Name Value Range Interpretation Code Description Data Rachel rce(s) Supporting Document(s) HCG SERUM QUAL NEGATIVE NORMAL: NEGATIVE [facility] HCG SERUM QL REENTER NEGATIVE NORMAL: NEGATIVE [facility] { KIT LOT # [id number] ){ KIT EXP DATE 03.10.22 ){ PROCEDURAL CONTROL VALID ) ID Date Data Source [id number] 10/10/2020 10:59:00 AM EDT [facility] Name Value Range Interpretation Code Description Data Rachel rce(s) Supporting Document(s) CBC NO DIFF [facility] COMPLETE BLOOD COUNT Leukocytes [#/volume] in Blood by Automated count 6.9 10^3/uL 4.2 - 1 1.0 [facility] Erythrocytes [#/volume] in Blood by Automated count 4.31 10^6/uL 4. 20 - 5.40 [facility] Hemoglobin [Mass/volume] in Blood 13.9 g/dL 12.0 - 16.0 [facility] Hematocrit [Volume Fraction] of Blood by Automated count 42.1 % 3 7.0 - 47.0 [facility] Erythrocyte mean corpuscular volume [Entitic volume] by Auto mated count 97.7 fL 81.0 - 101 [facility] Erythrocyte mean corpuscular hemoglobin [Entitic mass] by Automated count 32.3 pg 27.0 - 34.0 [facility] Erythrocyte mean corpuscular hemoglobin concentration [Mass/volume] by Automated count 33.0 g/dL 31.0 - 36.0 [facility] Erythrocyte distribution width [Ratio] by Automated count 12.8 % 11.5 - 14.5 [facility] Platelets [#/volume] in Blood by Automated count 249 10^3/uL 150 - 45 0 [facility] Platelet mean volume [Entitic volume] in Blood by Automated count 9.9 fL 7.4 - 10.4 [facility] ID Date Data Source [id number] 10/10/2020 10:22:00 AM EDT [facility] Name Value Range Interpretation Code Description Data Rachel e(s) Supporting Document(s) SARS coronavirus 2 RNA Not Detected [facility] This lab was ordered by [facility] michael and reported by [facility]. ID Date Data Source [id number] 10/12/2020 02:07:00 PM EDT [facility] Name Value Range Interpretation Code Description Data Rachel rce(s) Supporting Document(s) SARS-CoV-2, JUAN Not Detected Not Detected [facility] This nucleic acid amplification test was developed and its performancecharacteristics determined by [facility]. Nucleic acidamplification tests include RT-PCR and [...] assay. SARS-CoV-2, JUAN [address] [facility] ID Date Data Source [id number] 09/18/2020 02:15:00 PM EDT [facility] Name Value Range Interpretation Code Description Data Rachel rce(s) Supporting Document(s) COVID-19 RT-PCR NASAL SWAB Not Detected Not Detected [facility] A not detected (negative) test result fo [...] developed and its performance characteristics determined by [employer] and verified at [facility]. It has not been cleared or approved by the U.S. Food and Drug Administration for diagnostic use. This test has been authorized by FDA under an EUA for use by authorized laboratories. Results should be used in conjunction with clinical findings, and should not form the sole basis for a diagnosis or treatment decision. Methods: SARS-CoV-2 Multiplex RT-PCR Assay ID Date Data Source [id number] 09/15/2020 04:00:00 PM EDT [facility] Name Value Range Interpretation Code Description Data Rachel rce(s) Supporting Document(s) SARS-CoV-2 (COVID-19) N gene [Presence] in Respiratory specimen by JUAN with probe detection NEGATIVE [facility] This lab was ordered by Lakhwinder Lancaster and reported by [facility]. ID Date Data Source [id number] 09/15/2020 12:00:00 AM EDT [facility] Name Value Range Interpretation Code Description Data Rachel rce(s) Supporting Document(s) Carestart Rapid COVID Antigen Test Negative [facility] This lab was reported by Lakhwinder king. ID Date Data Source [id number] 08/28/2020 02:04:00 AM EDT [address] [place] [address] ---------NAME--------- NUMBER SEX AGE ADMIT DISC. XRAY# F/C TYPE JOCELINE GARCIA N [id number] F 25 08/27/20 08/28/20 [id number] SB2 E/R DATE OF : 1995 M/R# [id number] #: [id number] TR-06 LOCATION: EMERGENCY DEPT TRANSCRIBED: 08/28/20 2:[address] ABD //T// PELVIS W/ IV ONLY [id number] COMPLETED:08/28/20 2:48 RLB 9170 Reason(s): abdominal pain, LUQ, RLQ, Diarrhea PHYSICIAN: YUE CLAUDETTE == R A D I O L O G Y R E P O R T PATIENT HISTORY:Abdominal pain, LUQ, RLQ, Diarrhea. Accumulated DLP-675.9 mGy*cm, EstimatedDLP-665.6 mGy*cm. Neg BEta. [id number], 75mL, [id number], 09/30. Labs verified andscanned.Time Out performed. Correct patient with 2 identifiers, type and amount ofcontrast used, correct body part and side all verified prior to examination.Images sent to[facility] for review. - RLB / CORONAL (DICOM Hx)EXAM: CT Abdomen and Pelvis with IV contrastCLINICAL HISTORY:Abdominal pain, LUQ, RLQ, Diarrhea. Accumulated DLP-675.9mGy*cm, Estimated DLP-665.6 mGy*cm. Neg BEta. [id number], 75mL, [id number], 09/30. Labsverified and scanned. Time Out performed. Correct patient with 2 identifiers,type and amount of contrast used, correct body part and side all verified priorto examination. Images sent to[facility] for review. - RLBTECHNIQUE: Axial computed tomography images of the abdomen and pelvis withintravenous contrast. / All CT scans at this facility use dose modulation,iterative reconstruction, and/or weight-based dosing when appropriate to reduceradiation dose to as low as reasonably achievable.CONTRAST:with intravenous contrast. With; [id number], 75MlCOMPARISON:None provided.FINDINGS:LUNG BASES: The lung bases appear [...] rce(s) Supporting Document(s) ID Date Data Source [id number] 08/28/2020 10:45:00 AM EDT [facility] Name Value Range Interpretation Code Description Data Rachel rce(s) Supporting Document(s) COVID-19 RT-PCR EARLY CHILDHOOD EDUCATOR AIDE SWAB TNP [facility] Sample tube arrived without Viral Transp ort Media, unable to perform test. No evidence of sample leakage. Sample tube arrived without Viral Transport Media, unable to perform test. No evidence of sample leakage. ID Date Data Source [id number] 08/28/2020 10:45:00 AM EDT [facility] Name Value Range Interpretation Code Description Data Rachel rce(s) Supporting Document(s) Non-Conformance #NOM[employer]IA [employer] [facility] Sample tube arrived without Viral Transp ort Media, unable to perform test. No evidence of sample leakage. ID Date Data Source [id number] 08/28/2020 10:45:00 AM EDT [facility] Name Value Range Interpretation Code Description Data Rachel rce(s) Supporting Document(s) REJECTED SPECIMEN #NOMEDIA [facility] Sample tube arrived without Viral Transp ort Media, unable to perform test. No evidence of sample leakage. ID Date Data Source [id number] 08/27/2020 10:54:00 PM EDT [facility] 1 OrderSheet [facility] Emergency Department [address] [place] [address] Phone #: ext- [phone] 08/27/2020 22:53 Patient: ZARIA CAR [facility]#: [id number] Sex: F : 1995 Age: 25yWEIGHT:74.8 kg (S) HEIGHT:67 inches (S) BMI:25.9ALLERGIES: No Known Drug AllergyCHIEF COMPLAINT: abdominal painDIAGNOSIS: Viral disease, DiarrheaLAB ORDERSOrder Description Priority Entered Acknowledged InitialedCBC w Diff STAT 23:08/27/2020 23:20 MelYue harrell, Tjsoledad Metza R.N. M.D.;CMP STAT 23:08/27/2020 23:20 MelYue harrell, Tj Metza R.N. M.D.;Lipase STAT 23:08/27/2020 23:20 Melaracemo, Yue, Tj Sarah R.N. M.D.;Urinalysis (Clean STAT 23:08/27/2020 23:20 Melaragno,Catch) Yue, Tjsoledad Metza R.N. M.D.;Beta-HCG, Qual STAT 23:08/27/2020 23:20 Melaracemo,Serum Yue, jT Metza R.N. M.D.;Lactic Acid STAT 23:08/27/2020 23:20 MelaragnoYue, Tj Sarah R.N. M.D.;DIAGNOSTIC STUDY ORDERSOrder Description Priority Entered Acknowledged InitialedCT Abd PEL W/ IV STAT 00:21 08/28/2020 00:21 Bisha,Contrast Only Tj Turner(Oxygen?(No)) Tejas;(IV?(Yes)) Reason for Study: abdominal pain, LUQ, RLQ, DiarrheaMEDICATION/IV/DRIP/FLUID ORDERSOrder Description Priority Entered Acknowledged InitialedNS IV 1000 mL 23:09 08/27/2020 23:31 Meljulio cesar,Bolus: : Bolus 1000 Julianerin, Tj Metza R.N. 2 [facility]Sheet [facility] Emergency Department [address] [place] [address] Phone #: ext- [phone] 08/27/2020 22:53 Patient: ZARIA CAR Sex: F : 1995 Age: 25ymL (X1) M.D.;Protonix IV Push 40 23:09 08/27/2020 23:31 Melaragno,mg (in 10 mL NS, Julianerin, Tj Sarah R.N.administer over at M.D.;least 2 minutes,NOW x1)Ofirmev IV 1000 mg 23:09 08/27/2020 23:31 Sanjuana,(NOW x1, Infuse Yue, Tj Smith R.NAzulover 15 minutes) Tejas;NS IV 1000 mL 00:21 08/28/2020 00:29 Nilsa,Bolus: : Bolus 1000 Tj TurnermL (X1) M.DAzul;Toradol 15 mg IVP 00:58 08/28/2020 01:02 SanjuanaX1 dose: 15 mg Yue, Tj Sarah R.NAzul(NOW x1) M.D.;GENERAL ORDERSOrder Description Priority Entered Acknowledged InitialedNPO 23:08/27/2020 23:20 Yue Wei Riccardo Laura R.N. M.D.;Saline Lock 23:09 08/27/2020 23:20 Yue Wei Riccardo Laura R.N. M.D.;[Electronically signed by Eros Ash (02:24 08/28/2020)][Electronically signed by Tj Turner M.D. (05:33 08/28/2020)][Electronically locked by Eros Ash (02:24 08/28/2020)] Name Value Range Interpretation Code Description Data Rachel rce(s) Supporting Document(s) ID Date Data Source [id number] 08/27/2020 10:54:00 PM EDT [facility] 1 Medication Reconciliation Report [facility] Emergency Department [address] [place] [address] Phone #: ext- [phone] 08/27/2020 22:53 Patient: ZARIA CAR Sex: F : 1995 Age: 25yWeight: 74.8 kgHeight/Length: 67 in.BMI: 25.9ALLERGIES: No Known Drug AllergyThe patient's Home Medications are listed below:NONE.The source(s) of the original Home Medication information:Not obtained.The following Medications were given to the patient in the Emergency Department:Sodium Chl oride [IV] IV Fluids bolus 0, then 1000 mL/hr, administered: 23:31 08/27/2020ROTONIX [IVP] IVP 40 mg, administered: 23:31 08/27/2020ofirmev Drip IV bolus 0, then 1000, administered: 23:31 08/27/2020NS [IV] IV Fluids bolus 1000 mL over 40 minute(s), administered: 00:29 08/28/2020Toradol [IVP] IVP 15 mg, administered: 01:02 08/28/2020The following Medications were prescribed to the patient:None. Name Value Range Interpretation Code Description Data Rachel rce(s) Supporting Document(s) ID Date Data Source [id number] 08/27/2020 10:54:00 PM EDT [facility] 1 Medication Administration Record [facility] Emergency Department [address] [place] [address] Phone #: ext- [phone] 08/27/2020 22:53 Patient: ZARIA CAR Sex: F : 1995 Age: 25yWeight: 74.8 kgHeight/Length: 67 inBMI: 25.9ALLERGIES: No Known Drug Allergy Date/Time Medication Administered Medication OrderedStart SODIUM CHLORIDE [IV] NS IV 1000 mL Bolus: : Bolus 613172:31 08/27/2020 Dose: IV Fluids mL (X1)Sarah Wei REj Rate: 1000 mL/hr over 1 hour(s)---- Dispensed: 1000 mL bagStop Site: #1 left AC00:28 08/28/2020Eros torres,Given PROTONIX [IVP] (PANTOPRAZOLE Protonix IV Push 40 mg (in 10 mL23:31 08/27/2020 SODIUM) NS, administer over at least 2MelaSarah abebe RAzulNAzul Dose: 40 mg IVP minutes, NOW x1) Site: #1 left ACStart ofirmev * Ofirmev IV 1000 mg (NOW x1,23:31 08/27/2020 Dose: 1000 * Drip IV Infuse over 15 minutes)Sarah Wei R.N.----Stop23:47 08/27/2020Saarh Wei R.N.Start NS [IV] NS IV 1000 mL Bolus: : Bolus [id number]:29 08/28/2020 Dose: IV Fluids mL (X1)Eros Ash, Bolus: 1000 mL over 40 minute(s)---- Dispensed: 1000 mL bagStop Site: #1 left AC01:26 08/28/2020Sarah Wei RAzulNAzulGiven TORADOL [IVP] (KETOROLAC Toradol 15 mg IVP X1 dose: 15 mg01:02 08/28/2020 TROMETHAMINE) (NOW x1)Sarah Wei R.N. Dose: 15 mg IVP Site: #1 left AC Name Value Range Interpretation Code Description Data Rachel rce(s) Supporting Document(s) ID Date Data Source [id number] 08/27/2020 10:54:00 PM EDT [facility] 1 General Instructions [facility] Emergency Department [address] [place] [address] Phone #: ext- [phone] 08/27/2020 22:53 Patient: [...] ADDITIONAL INFORMATIONViral Diarrhea (Adult) 2 General Instructions [facility] Emergency Department [address] [place] [address] Phone #: ext- [phone] 08/27/2020 22:53 Patient: [...] replace what is lost. 3 General Instructions [facility] Emergency Department [address] [place] [address] Phone #: ext- [phone] 08/27/2020 22:53 ---- [...] hands with soap and water or alcohol-based tv production assistant to prevent the spread of infection. Wash [...] Keep uncooked meats away from cooked and djrry-xf-hdr foods.Medicines: You may use acetaminophen or NSAIDS [...] cramping, and pain worse. 4 General Instructions [facility] Emergency Department [address] [place] [address] Phone #: ext- [phone] 08/27/2020 22:53 Patient: [...] to seek medical advice 5 General Instructions [facility] Emergency Department [address] [place] [address] Phone #: ext- [phone] 08/27/2020 22:53 Patient: ZARIA CAR Sex: F [...] consciousness Rapid heart rate Seizure Stiff neck [employer] [address] [place] [address]. All rights reserved. This information is not [...] nausea, vomiting, cramping, and 6 General Instructions [facility] Emergency Department [address] [place] [address] Phone #: ext- [phone] 08/27/2020 22:53 Patient: ZARIA CAR Sex: F [...] the smoke from others. You may use cguc-kni-bqozcco acetaminophen or ibuprofen for fever, muscle aching, [...] body and be dangerous to your health. Nody-cmp-gkhdftd remedies won't shorten the length of the illness but may be helpful for symptoms such as cough, sore throat, nasal and sinus congestion, or diarrhea. Don't use decongestants if you have high blood pressure.Follow-up careFollow up with your healthcare provider if you do not improve over the next week.Call [phone] [phone] if any of the following occur: Convulsion Feeling weak, dizzy, or like you are going to faint 7 General Instructions [facility] Emergency Department [address] [place] [address] Phone #: ext- [phone] 08/27/2020 22:53 Patient: [...] or as directed by your healthcare provider [phone] [employer]. [address] [place] [address]. All rights reserved. This information is not intended as asubstitute for professional medical care. Always follow your healthcare professional's instructions. You have been given the following additional information: Diarrhea, Viral (Adult) Viral Syndrome (Adult)(Electronically signed by Tj Turner M.D. 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 --23:04 08/27/20 Sarah Wei R.N.22:58 08/27/20. BP: 133/79. MAP : 97. HR: 108. RR: 16. O2 saturation: 100% on room air. Temp: 97.5 F.Pain level now: 12/18. --23:04 08/27/20 Sarah Wei R.N.Weight: 74.8 kg stated. Height/Length: 67 inches Per Patient. BMI: 25.9. --23:03 08/27/20 Sarah Wei R.N.MedicationsNone. --23:02 08/27/20 Sarah Wei R.N.AllergiesNo Known Drug Allergy. --23:02 08/27/20 Sarah Wei R.N.PROBLEMS:Ectopic .Abdominal Pain.Ovarian Cyst.Migraine Headache. --23:02 08/27/20 Sarah Wei R.N.ADDITIONAL SURGERIES:Cholecystectomy.C- Section.Salpingectomy. --23:02 08/27/20 Sarah Wei R.N.History 2 Clinical Report - Nurses [facility] Emergency Department [address] [place] [address] Phone #: ext- [phone] 08/27/2020 22:53 Patient: [...] given. Two 3 Clinical Report - Nurses [facility] Emergency Department [address] [place] [address] Phone #: ext- [phone] 08/27/2020 22:53 Patient: [...] with 10 mL saline.--23:30 08/27/20 Sarah Wei R.N.23:31 08/27/2020 Started bag #1 1000 mL IV Fluids Sodium Chloride; at 1000 mL/hr over 1 hour(s) via site#1 via IV pump. Allergies verified and confirmed 5 rights. IV patency established. IV site checked: no pain,redness, or swelling. IV flushed thoroughly pre- and post-medication administration. Information reviewedwith patient. Verbalizes understanding. --23:08/27/20 Sarah Wei R.N.23:31 08/27/2020 PROTONIX (Pantoprazole Sodium) IVP 40 mg given over 2 minute(s) via site #1.Allergies verified and confirmed 5 rights. IV patency established. IV site checked: no pain, redness, orswelling. IV flushed thoroughly pre- and post-medication administration. IVP given by RN. Informationreviewed with patient. Verbalizes understanding. --23:31 08/27/20 Sarah Wei R.N.23:31 08/27/2020 [facility] * Drip IV 1000 --23:31 08/27/20 Sarah Wei R.N.The patient is calm and resting quietly. --00:18 08/28/20 Sarah Wei R.N.00:17 08/28/20. BP: 130/70. MAP: 90. HR: 88. RR: 17. O2 saturation: 100% on room air. --00: Sarah Wei R.N.23:47 08/27/2020 [facility] Drip IV Discontinued: completed. Total amount infused: [...] by RN. Information reviewed with patient.Verbalizes understanding. --01:08/28/20 Sarah Wei R.N.The patient is calm and resting quietly. --01:08/28/20 Sarah Wei R.N. 4 Clinical Report - Nurses [facility] Emergency Department [address] [place] [address] Phone #: ext- [phone] 08/27/2020 22:53 Patient: ZARIA CAR Sex: F : 1995 Age: 25y 01:08/28/20. [...] Patient verbalized understanding. Written instructions provided in Indian. No medication instructions or treatment instructions. The [...] rce(s) Supporting Document(s) ID Date Data Source [id number] 08/27/2020 10:54:00 PM EDT [facility] 1 Clinical Report - Physicians/Mid Levels [facility] Emergency Department [address] [place] [address] Phone #: ext- [phone] 08/27/2020 22:53 Patient: [...] here on 08-14-20 for same after visiting [facility] ER on 08-11, workup and CTAP were nml, referred to RN TRIAGE, seen once there, and was told that [...] Allergies: 2 Clinical Report - Physicians/Mid Levels [facility] Emergency Department [address] [place] [address] Phone #: ext- [phone] 08/27/2020 22:53 Patient: [...] ABD //T// PELVIS W/ IV ONLY INSTITUTION: [facility] ORDERING PHYSICIAN: Tj Turner PATIENT HISTORY: Abdominal pain, LUQ, RLQ, Diarrhea. Accumulated DLP-675.9 mGy*cm, Estimated DLP-665.6 mGy*cm. Neg BEta. [id number], 75mL, [id number], 09/30. Labs verified and scanned. Time Out performed. Correct patient with 2 identifiers, type and amount of contrast used, correct body part and side all verified prior to examination. Images sent to[facility] for review. - RLB (Hx) / CORONAL (DICOM Hx) 3 Clinical Report - Physicians/Mid Levels [facility] Emergency De partment [address] [place] [address] Phone #: ext- [phone] 08/27/2020 22:53 Patient: ZARIA CAR Sex: F : 1995 Age: 25yEXAM: CT Abdomen and Pelvis with IV contrastCLINICAL HISTORY: Abdominal pain, LUQ, RLQ, Diarrhea. Accumulated DLP-675.9 mGy*cm, EstimatedDLP-665.6 mGy*cm. Neg BEta. [id number], 75mL, [id number], 09/30. Labs verified and scanned. Time Outperformed. Correct patient with 2 identifiers, type and amount of contrast used, correct body part and sideall verified prior to examination. Images sent [facility] for review. - RLBTECHNIQUE: Axial computed tomography images of the abdomen and pelvis with intravenous contrast. /All CT scans at this facility use dose modulation, iterative reconstruction, and/or weight-based dosing whenappropriate to reduce radiation dose to as low as reasonably achievable.CONTRAST: with intravenous contrast. With; [id number], 75MlCOMPARISON: None provided.FINDINGS:LUNG BASES: The lung bases [...] aortic aneurysm. 4 Clinical Report - Physicians/Mid Levels [facility] Emergency Department [address] [place] [address] Phone #: [phone] ani- [phone] 08/27/2020 22:53 [id number] Sex[facility] F : 1995 Age: 25yBONES: No aggressive appearing osseous lesion. No acute osseous pathology evident.IMPRESSION:1. Appendix is normal.2. The patient is status post cholecystectomy.Electronically signed on Aug 28, 2020 2:04:10 AM EDT by:Wei Waddell MD, Ph.D.Diplomate, [place] [employer]. Study type: abdomen and [...] (mU/mL) Weeks post LMP 5.4-708 mU/mL 3-4 Jxhvx618-97086 mU/mL 5-6 Weeks 4059-021878 mU/mL 7-8 Zdrbn16910-900433 mU/mL 9-10 Weeks 23603-66359 mU/mL 12-14 Ghpxu21711-47954 mU/mL 15-16 Weeks 8240-43673 mU/mL 17-18 WeeksCBC w Diff: (ABILIO: 08/27/2020 [...] 0.00) 5 Clinical Report - Physicians/Mid Levels [facility] Department [address] [place] [address] Phone #: ext- [phone] 08/27/2020 22:53 Patient: [...] Male GFR Interprentation 20-49 yrs >60 mL/min Whjepd58-21 yrs >56 mL/min Normal 60-69 yrs >49 mL/min Normal 70-79yrs>42 mL/min Normal 80 and above >35 mL/min Normal Female GFRInterpretation 20-39 yrs >60 mL/min Normal 40-49 yrs >58 mL/minNormal 50-59 yrs >51 mL/min Normal 60-69 yrs >45 mL/min Cokbfe28-40 yrs >39 mL/min Normal 80 and above >32 mL/min NormalLipase: (ABILIO: 08/27/2020 23:18) ( MsgRcvd 08/27/2020 23:55) Final results Test Result Flag [...] Negat 6 Clinical Report - Physicians/Mid Levels [facility] Department [address] [place] [address] Phone #: ext- [phone] 08/27/2020 22:53 Patient: [...] Beta-HCG, Qual Serum: (ABILIO: 08/27/2020 23:18) ( [facility]22[facility] Canceled Lactic Acid: (ABILIO: 08/27/2020 23:18) ( Mscvd 08/27/2020 23:42) Final results Test Result Flag [...] and spicy 7 Clinical Report - Physicians/Mid [facility] Emergency Department [address] [place] [address] Phone #: ext- [phone] 08/27/2020 22:53 Patient: [...] Name Value Range Interpretation Code Description Data [facility] rce(s) Supporting Document(s) ID Date Data Source [id number] 08/27/2020 11:59:00 PM EDT [facility] System Name Value Range Interpretation Code Description Data [facility] rce(s) Supporting Document(s) COMPREHENSIVE METABOLIC PANEL [facility] COMPREHENSIVE METABOLIC PANEL Sodium [Moles/volume] in Serum or Plasma 135 mEq/L 134 - 153 [facility] Potassium [Moles/volume] in Serum or Plasma 3.4 mEq/L 3.6 - 5.0 L [facility] Chloride [Moles/volume] in Serum or Plasma 100 mEq/L 98 - 107 [facility] Carbon dioxide, total [Moles/volume] in Serum or Plasma 23 MEQ/L 22 - 30 [facility] Glucose [Mass/volume] in Serum or Plasma 132 MG/DL 70 - 99 H [facility] BUN 9 MG/DL 7 - 21 [facility] Creatinine [Mass/volume] in Serum or Plasma 0.5 MG/DL 0.7 - 1.5 L [facility] BUN/CREAT 18 8 - 27 [facility] Protein [Mass/volume] in Serum or Plasma 7.2 G/DL 6.3 - 8.2 [facility] Albumin [Mass/volume] in Serum or Plasma 4.5 G/DL 3.9 - 5.0 [facility] Globulin [Mass/volume] in Serum by calculation 2.7 GM/DL 2.4 - 3.2 [facility] A/G RATIO 1.7 0.8 - 2.0 [facility] Calcium [Mass/volume] in Serum or Plasma 9.5 MG/DL 8.4 - 10.2 [facility] Bilirubin.total [Mass/volume] in Serum or Plasma 0.7 MG/DL 0.2 - 1.3 [facility] Alkaline phosphatase [Enzymatic activity/volume] in Serum or Plasma 90 U/L 38 - 126 [facility] Aspartate aminotransferase [Enzymatic activity/volume] in Serum or Plasma 13 U/L 5 - 40 [facility] Alanine aminotransferase [Enzymatic activity/volume] in Seru m or Plasma 10 U/L 7 - 56 [facility] Anion gap 3 in Serum or Plasma 12.0 mmol/L 8.0 - 16.0 [facility] AGE 25 yrs [facility] al NON-AA GFR >60 mL/min [facility] ital AFR AMER GFR >60 mL/min [facility] sp[facility] Male GFR In terprentation 20-49 [...] >32 mL/min Normal ID Date Data Source [id number] 08/27/2020 11:55:00 PM EDT [facility] Name Value Range Interpretation Code Description Data Rachel rce(s) Supporting Document(s) Lipase [Enzymatic activity/volume] in Serum or Plasma 28 U/L 13 - 60 [facility] ID Date Data Source [id number] 08/27/2020 11:45:00 PM EDT [facility] Name Value Range Interpretation Code Description Data Rachel rce(s) Supporting Document(s) CBC W/AUTOMATED DIFF [facility] COMPLETE BLOOD COUNT Leukocytes [#/volume] in Blood by Automated count 11.8 10^3/uL 4.2 - 11.0 H [facility] Erythrocytes [#/volume] in Blood by Automated count 4.34 10^6/uL 4. 20 - 5.40 [facility] Hemoglobin [Mass/volume] in Blood 14.0 g/dL 12.0 - 16.0 [facility] Hematocrit [Volume Fraction] of Blood by Automated count 41.4 % 3 7.0 - 47.0 [facility] Erythrocyte mean corpuscular volume [Entitic volume] by Auto mated count 95.4 fL 81.0 - 101 [facility] Erythrocyte mean corpuscular hemoglobin [Entitic mass] by Automated count 32.3 pg 27.0 - 34.0 [facility] Erythrocyte mean corpuscular hemoglobin concentration [Mass/volume] by Automated count 33.8 g/dL 31.0 - 36.0 [facility] Erythrocyte distribution width [Ratio] by Automated count 12.5 % 11.5 - 14.5 [facility] Platelets [#/volume] in Blood by Automated count 224 10^3/uL 150 - 45 0 [facility] Platelet mean volume [Entitic volume] in Blood by Automated count 10.4 fL 7.4 - 10.4 [facility] Neutrophils/100 leukocytes in Blood by Automated count 76.5 % 37. 0 - 80.0 [facility] Lymphocytes/100 leukocytes in Blood by Manual count 17.2 % 25.0 - 40.0 L [facility] Monocytes/100 leukocytes in Blood by Automated count 5.4 % 3.0 - 8.0 [facility] Eosinophils/100 leukocytes in Blood by Automated count 0.4 % 0.0 - 7.0 [facility] Basophils/100 leukocytes in Blood by Automated count 0.3 % 0.0 - 2.5 [facility] %IG 0.2 % 0.0 - 0.0 [facility] %NR[facility] 0.0 % 0.0 - 0.0 [facility] al Neutrophils [#/volume] in Blood by Automated count 9.02 10^3/uL 2.00 - 6.90 H [facility] Lymphocytes [#/volume] in Blood by Automated count 2.02 10^3/uL 0.60 - 3.40 [facility] Monocytes [#/volume] in Blood by Automated count 0.63 10^3/uL 0.00 - 0.90 [facility] Eosinophils [#/volume] in Blood by Automated count 0.05 10^3/uL 0.00 - 0.70 [facility] Basophils [#/volume] in Blood by Automated count 0.03 10^3/uL 0.00 - 0.20 [facility] #IG 0.02 10^3/uL 0.00 - 0.10 [facility] #NRBC 0.00 10^3/uL 0.00 - 0.00 [facility] MANUAL DIFF SEE BELOW [facility] ital Segmented neutrophils/100 leukocytes in Blood by Manual count 82 % 37 - 80 [facility] %LYMPH 12 % 25 - 40 [facility]MONO 5 % 3 - 8 [facility] %EOS 1 % 0 - 7 [facility] RBC MORPH MORPH IS NORMAL [facility] ID Date Data Source [id number] 08/27/2020 11:44:00 PM EDT [facility] Name Value Range Interpretation Code Description Data Rachel rce(s) Supporting Document(s) Choriogonadotropin.intact [Units/volume] in Serum or Plasma <0.5 mIU/ mL [facility] Interpr etation: Less than 5 mU/mL: Negative 6-10 mU/mL: Borderline (suggest repeat in 48 hours) >10: Positive Approx HCG range (mU/mL) Weeks post LMP 5.4-708 mU/mL 3-4 Weeks 217-41750 mU/mL 5-6 Weeks 4059-636271 mU/mL 7-8 Weeks 09137-102225 mU/mL 9-10 Weeks 33181-59633 mU/mL 12-14 Weeks 11967-27118 mU/mL 15-16 Weeks 8240- 63211 mU/mL 17-18 Weeks ID Date Data Source [id number] 08/27/2020 11:42:00 PM EDT [facility] Name Value Range Interpretation Code Description Data Rachel rce(s) Supporting Document(s) URINALYSIS [facility] tianna URINALYSIS SOURCE Clean Catch [facility] ital COLOR yellow NORMAL: Yellow [facility] CLARITY clear NORMAL: Clear [facility] Specific gravity of Urine by Test strip 1.010 1.001 - 1.030 [facility] pH 6.5 5 - 9 [facility] Hospit al Glucose [Mass/volume] in Urine by Test strip NORM NORMAL: Negat [facility] Bilirubin.total [Presence] in Urine by Test strip NEG NORMAL: Negative [facility] Ketones [Presence] in Urine by Test strip 50 NORMAL: Negative A [facility] Protein [Mass/volume] in Urine by Test strip 30 NORMAL: Negat [facility] Nitrite [Presence] in Urine by Test strip NEG NORMAL: Negative [facility] BLOOD NEG NORMAL: Negative [facility] Leukocyte esterase [Presence] in Urine by Test strip 25 JENNY L: Negative [facility] Urobilinogen [Mass/volume] in Urine by Test strip 1 less nathalia n 1.0 mg/dL [facility] MICROSCOPIC See Below [facility] WBC 1 - 3 NORMAL: NONE SEEN [facility] Erythrocytes [#/volume] in Urine by Test strip 0 - 1 NORMAL: NON E SEEN [facility] EPITHELIAL FEW NORMAL: NONE SEEN [facility] Bacteria [Presence] in Urine sediment by Light microscopy Tr rosy NORMAL: NONE SEEN [facility] Mucus [Presence] in Urine sediment by Light microscopy Trace NORMAL: NONE SEEN [facility] ID Date Data Source [id number] 08/27/2020 11:42:00 PM EDT [facility] Name Value Range Interpretation Code Description Data Rachel rce(s) Supporting Document(s) Lactate [Moles/volume] in Serum or Plasma 2.7 MMOL/L 0.2 - 2.2 H [facility] ID Date Data Source [id number] 08/27/2020 12:00:00 AM EDT [facility] Name Value Range Interpretation Code Description Data Rachel rce(s) Supporting Document(s) Carestart Rapid COVID Antigen Test Negative [facility] This lab was reported by Lakhwinder king. ID Date Data Source [id number] 08/15/2020 09:04:00 AM EDT [facility] [address] [place] [address] PHONE: [phone] FAX: [phone] Name .................. : JOCELINE Nguyễn Acct Number.................. : [id number] ROOM. ................. : TR-02 MR Number ................... : [id number] Stay type ............. : E/R Discharge Date......... ... : 08/14/20 Admit Date ......... : 08/14/20 Admit Phys .................... : COONEYNORM Date of ....... : 1995 Family Phys ................... : UNKNOWN Phone .................. : [phone] Age ................................ : 25 Film# .................. .:[id number] Sex ................................. : F Unsigned transcriptions are preliminary reports and do not represent a medical or legal document CT ABD & PELVIS W/ IV ONLY [id number] COMPLETE:08/14/20 19:22 ARLENE 8055 Reason(s): Abdominal Pain [...] 75 Isovue 370 Page 1 of 2 [facility] [address] [facility] [place] [id number] PHONE: [phone] FAX: [phone] Name .................. : JOCELINE GARCIA Chan Acct Number.................. : [id number] ROOM. ................. : TR-02 MR Number ................... : [id number] Stay type ............. : E/R Discharge Date......... ... : 08/14/20 Admit Date ......... : 08/14/20 Admit Phys .................... : COONEYNORM Date of ....... : 1995 Family Phys ................... : UNKNOWN Phone .................. : [phone] Age ................................ : 25 Film# .................. .:[id number] Sex ................................. : F Unsigned transcriptions are preliminary reports and do not represent a medical or legal document CT ABD & PELVIS W/ IV ONLY [id number] COMPLETE:08/14/20 19:22 ARLENE 8055 Reason(s): Abdominal Pain Method of administration: Intravenous Electronically Reviewed and Signed By Wayne Farias M.D. , 08/15/20 09:04, ZOHREH Transcribe Initials: RIANNA , Transcribe Date: 08/15/20 00:16, Dictation Date: Copy for: VIPIN MORENO via fax Copy for: EMERGENCY DEPT via modem Copy for: 710 MED REC DISCHARGED Page 2 of 2 Name Value Range Interpretation Code Description Data Rachel rce(s) Supporting Document(s) ID Date Data Source [id number] 08/14/2020 06:54:00 PM EDT [facility] 1 OrderSheet [facility] Emergency Department [address] [place] [address] Phone #: ext- [phone] 08/14/2020 18:33 Patient: ZARIA CAR Sex: F : 1995 Age: 25yWEIGHT:71.2 kg (S) HEIGHT:67 inches (S) BMI:24.6ALLERGIES: No Known Drug AllergyCHIEF COMPLAINT: abdominal pain, nauseaDIAGNOSIS: Abdominal painLAB ORDERSOrder Description Priority Entered Acknowledged InitialedCBC w Diff STAT 18:47 08/14/2020 18:47 Camacho Moore R.N. PA;CMP STAT 18:47 08/14/2020 18:47 Camacho Moore R.N. PA;Lipase ST AT 18:47 08/14/2020 18:47 Camacho Moore R.N.;Urinalysis (Clean STAT 18:47 08/14/2020 Ack'd: 18:58 Bhavna Moore R.N.Catch) Camacho Dumas Cancelled: Unable to Collect 20:29 PA; Bhavna Moore R.N.Lactic Acid STAT 18:47 08/14/2020 18:47 Camacho Moore R.N.;DIAGNOSTIC STUDY ORDERSOrder Description Priority Entered Acknowledged InitialedCT Abd PEL W/ IV STAT 18:47 08/14/2020 Ack'd: 18:47 19:08 BurnhamContrast Only Bhavna Floyd supervisor statement clerks, Deric ER(Oxygen?(No)) PA; Gladis Tech1(IV?(Yes)) NOTES: RLQ Pain Reason for Study: Abdominal PainMEDICATION/IV/DRIP/FLUID ORDERSOrder Description Priority Entered Acknowledged InitialedNS IV : Bolus 1000 18:47 08/14/2020 Ack'd: 18:47 19:25 Oscar,mL, then 150 mL/hr Bhavna Covarrubias R.N.; R.NAzul 2 OrderSheet [facility] Emergency Department [address] [place] [address] Phone #: ext- [phone] 08/14/2020 18:33 Patient: [...] Amber Amber R.N. PA; R.N.[Electronically signed by Bhvana Moore R.N. (20:31 08/14/2020)][Electronically signed by Camacho Dumas (20:34 08/14/2020)][Electronically locked by Bhavna Moore R.N. (20:31 08/14/2020)] Name Value Range Interpretation Code Description Data Rachel rce(s) Supporting Document(s) ID Date Data Source [id number] 08/14/2020 06:54:00 PM EDT [facility] 1 Medication Reconciliation Report [facility] Emergency Department [address] [place] [address] Phone #: ext- [phone] 08/14/2020 18:33 Patient: [...] Dispense 20 tablet. Refills: 0.Substitution permitted.Pharmacy - [facility] [id number] [facility] [address] [facility] ; [place] [address]. . -- CHRISTIN Gonzalez Name Value Range Interpretation Code Description Data Rachel rce(s) Supporting Document(s) ID Date Data Source [id number] 08/14/2020 06:54:00 PM EDT [facility] 1 Medication Administration Record [facility] Emergency Department [address] [place] [address] Phone #: ext- [phone] 08/14/2020 18:33 Patient: ZARIA CAR Sex: F : 1995 Age: 25yWeight: 71.2 kgHeight/Length: 67 inBMI: 24.6ALLERGIES: No Known Drug Allergy Date/Time Medication Administered Medication OrderedStart NS [IV] NS IV : Bolus 1000 mL, then 04018:20 08/14/2020 Dose: IV Fluids mL/hrBhavna Moore R.NAzul Bolus: 1000 mL wide open---- Dispensed: 1000 mL bagStop Site: #1 left AC20:21 08/14/2020Bhavna Moore RAzulNAzulGiven ZOFRAN [IVP] (ONDANSETRON HCL) Zofran IVP 8 mg19:25 08/14/2020 Dose: 8 mg IVPBhavna Moore R.N. Site: #1 left ACGiven MORPHINE [IVP] Morphine IVP 4 mg (HIGH ALERT19:28 08/14/2020 Dose: 4 mg IVP MEDICATION)Bhavna Moore R.N. In: NS 10 mL Site: #1 left ACGiven REGLAN [IVP] (METOCLOPRAMIDE Reglan 10 mg IVP X1 dose: 10 mg20:06 08/14/2020 HCL) (NOW x1)Melaragno, Sarah, R.N. Dose: 10 mg IVP Site: #1 left Name Value Range Interpretation Code Description Data Rachel rce(s) Supporting Document(s) ID Date Data Source [id number] 08/14/2020 06:54:00 PM EDT [facility] 1 General Instructions [facility] Emergency Department [address] [place] [address] Phone #: ext- [phone] 08/14/2020 18:33 Patient: [...] Dispense 20 tablet. Refills: 0.Substitution permitted.Pharmacy - [facility] [address] [facility] [id number] [place] [address] ; [place] [address]. .Follow-up:Follow up with a specialist OB. Reason for referral: Ovarian Cyst versus Adhesions?. Summary of careprovided to patient.Understanding of the discharge instructions verbalized by patient. ADDITIONAL INFORMATIONUnknown Causes of Abdominal Pain (Female) 2 General Instructions [facility] Emergency Department [address] [place] [address] Phone #: ext- [phone] 08/14/2020 18:33 Patient: [...] for taking these medicines. 3 General Instructions [facility] Emergency Department [address] [place] [address] Phone #: ext- [phone] 08/14/2020 18:33 Patient: ZARIA CAR Sex: F : 1995 Age: 25yGeneral care Rest as much as you can [...] begin to improve in thenext 24 hours.Call [phone] if any of these occur: Trouble breathing Confusion Fainting or loss of consciousness Rapid heart rate 4 General Instructions [facility] Emergency Department [address] [place] [address] Phone #: ext- [phone] 08/14/2020 18:33 Patient: [...] or water and you are getting dehydrated [id number] [employer]. [address] [place] [address]. All rights reserved. This information is not intended as asubstitute for professional medical care. Always follow your healthcare professional's instructions. You have been given the following additional information: Abdominal Pain, Unknown Cause, (Female)(Electronically signed by CHRISTIN Gonzalez 08/14/2020 20:34) Name Value Range Interpretation Code Description Data Rachel rce(s) Supporting Document(s) ID Date Data Source [id number] 08/14/2020 06:54:00 PM EDT [facility] 1 Clinical Report - Nurses [facility] Emergency Department [address] [place] [address] Phone #: ext- [phone] 08/14/2020 18:33 Patient: ZARIA CAR Sex: F [...] very painful to palpation. Pt went to [facility] on Thursday morning who did lab work butultimately discharged without answer. Pt states since then has gotten worse still and does not have anappetite. Pt denies n/v/d.). She has had abdominal pain. The pain is described as located in the RLQ.No nausea, vomiting, diarrhea or constipation. 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 Sex: F : 1995 Age: 25y Cholecystectomy. [...] band on patient. --18:39 08/14/20 Lulú Mckeon RMiranda.PHYSICAL ASSESSMENTAmbulatory to room.GENERAL / NEURO / PSYCH: Alert. Oriented X 4. Appears in no acute distress.HEENT: Mucous membranes are pink.RESPIRATORY: Respirations not labored. Breath sounds within normal limits.CVS: Normal sinus rhythm noted. Capillary refill less than 2 seconds.GI / : Abdomen soft. Abdominal tenderness in the right lower quadrant. Bowel sounds within normallimits. 3 Clinical Report - Nurses [facility] Emergency Department [address] [place] [address] Phone #: ext- [phone] 08/14/2020 18:33 Patient: ZARIA CAR Sex: F [...] Saline lock flushed with 10 mL saline. --19:09 08/14/20 Bhavna Moore R.N. Patient returned from CT by wheelchair with IV, mask and customer account technician. --19:19 08/14/20 Bhavna Moore R.N. late entry - 19:12 08/14/20. Patient transported to CT by wheelchair with IV, mask and customer account technician. --19:20 08/14/20 Bhavna Moore R.N. 19:20 08/14/2020 Started bag [...] of allergic reaction and precautions. Verbalizes understanding. --19:25 08/14/20 Bhavna Moore R.N. 19:25 08/14/2020 Zofran (Ondansetron HCl) IVP 8 mg given over 3 minute(s) via site #1. Allergies verified and confirmed 5 rights. IV patency established. IV site checked: no pain, redness, or swelling. IV flushed thoroughly pre- and post-medication administration. IVP given by RN. Information reviewed with patient including reason for taking this medication, signs of allergic reaction and precautions. Verbalizes understanding. --19:25 08/14/20 Bhavna Moore R.N. 19:28 08/14/2020 Morphine IVP 4 mg given diluted in NS 10mL over 5 minute(s) via site #1. Allergies verified and confirmed 5 rights. IV patency established. IV site checked: no pain, redness, or swelling. IV flushed thoroughly pre- and post-medication administration. IVP given by RN. Information reviewed with patient including reason for taking this medication, signs of allergic reaction, precautions and sedative warning. Verbalizes understanding. --19:28 08/14/20 Bhavna Moore R.N. 19:00 08/14/20. BP: 114/74. [...] Moore R.N. 4 Clinical Report - Nurses [facility] Emergency Department [address] [place] [address] Phone #: ext- [phone] 08/14/2020 18:33 Patient: [...] for disposition. --20:16 08/14/20 Bhavna Moore R.N. 20:08/14/2020 Reglan (Metoclopramide HCl) IVP 10 mg given [...] pain, redness, or swelling. IV flushed thoroughly. --20:21 08/14/20 Bhavna Moore R.N. 20:08/14/2020 Site #1 removed upon discharge. Catheter intact. Bandage applied. --20:08/14/20 Bhavna Moore R.N.DISPOSITION / DISCHARGE 20:08/14/20. Departure time: late entry - 20:08/14/2020. Condition at departure: improved and stable. No learning barriers present. Discharge instructions provided and reviewed with the patient. Reviewed warnings. Reviewed medication(s) side effects, precautions, dosing and course information. Prescription(s) sent electronically to pharmacy (Reglan). Reviewed referral to a primary care physician for followup. Patient verbalized understanding. Written instructions provided in Indian. The patient was discharged by the physician mortgage assistant. She was discharged home and accompanied by spouse. She left ambulatory and via private vehicle. Spouse driving. --20:31 08/14/20 Bhavna Moore R.N. 20:29 08/14/20. BP: 116/74. MAP: 88. HR: 89. RR: 16. O2 saturation: 98% on room air. Temp: 97.8 F (oral). Pain level now: 06/20. --20:31 08/14/20 Bhavna Moore R.N.Locked/Released at 08/14/2020 20:31 by Bhavna Moore R.N. Name Value Range Interpretation Code Description Data Rachel rce(s) Supporting Document(s) ID Date Data Source [id number] 08/14/2020 06:54:00 PM EDT [facility] 1 Clinical Report - Physicians/Mid Levels [facility] Emergency Department [address] [place] [address] Phone #: ext- [phone] 08/14/2020 18:33 Patient: ZARIA CAR Sex: F : 1995 Age: 25y Time Seen: 18:34 08/14/2020. Arrived- By private vehicle. Historian- patient.HISTORY OF PRESENT ILLNESS Chief Complaint: ABDOMINAL PAIN and NAUSEA. This started 4 days ago; Pt states she has had RLQ abd pain since Thursday and this has progressively gotten worse. Pt states very painful to palpation. Pt went to [facility] on Thursday morning who did lab work [...] Allergy. 2 Clinical Report - Physicians/Mid Levels [facility] Emergency Department [address] [place] [address] Phone #: ext- [phone] 08/14/2020 18:33 Patient: [...] 0.70) 3 Clinical Report - Physicians/Mid Levels [facility] Emergency Department [address] [place] [address] Phone #: ext- [phone] 08/14/2020 18:33 Patient: [...] Progress CT ABD Reason(s): Abdominal Pain TRANSPORTATION: WC IV? IV?(Yes) O2? Oxygen?(No) Ro : No CMTS: RLQ Pain. 4 Clinical Report - Physicians/Mid Levels [facility] Emergency Department [address] [place] [address] Phone #: ext- [phone] 08/14/2020 18:33 Patient: ZARIA CAR Sex: F : 1995 Age: 25yPROGRESS AND PROCEDURESCourse of Care: 19:55 Aug 14 2020. Evaluation after observation. (Discussed CT A/P and possiblyOvarian cyst versus adhesions, pt has f/u with OB. Pt had negative HCG at [facility] on Thursday.). Patient counseled in person regarding [...] tablet. Refills: 0. Substitution permitted. Pharmacy - [facility] [id number] [facility] [id number] [place] [address] ; [place] [address]. . Follow-up: Follow up with a specialist OB. Reason for referral: Ovarian Cyst versus Adhesions?. Summary of care provided to patient. Understanding of the discharge instructions verbalized by patient.(Electronically signed by CHRISTIN Gonzalez 08/14/2020 20:34) 5Clinical Report - Physicians/Mid Levels [facility] Emergency Department [address] [place] [address] Phone #: ext- [phone] 08/14/2020 18:33 Patient: ZARIA CAR Sex: F : 1995 Age: 25y Name Value Range Interpretation Code Description Data Rachel rce(s) Supporting Document(s) ID Date Data Source [id number] 08/14/2020 07:46:00 PM EDT [facility] System Name Value Range Interpretation Code Description Data Rachel rce(s) Supporting Document(s) Lipase [Enzymatic activity/volume] in Serum or Plasma 31 U/L 13 - 60 [facility] ID Date Data Source [id number] 08/14/2020 07:46:00 PM EDT [facility] Name Value Range Interpretation Code Description Data Rachel rce(s) Supporting Document(s) COMPREHENSIVE METABOLIC PANEL [facility] COMPREHENSIVE METABOLIC PANEL Sodium [Moles/volume] in Serum or Plasma 136 mEq/L 134 - 153 [facility] Potassium [Moles/volume] in Serum or Plasma 4.2 mEq/L 3.6 - 5.0 [facility] Chloride [Moles/volume] in Serum or Plasma 100 mEq/L 98 - 107 [facility] Carbon dioxide, total [Moles/volume] in Serum or Plasma 29 MEQ/L 22 - 30 [facility] Glucose [Mass/volume] in Serum or Plasma 86 MG/DL 70 - 99 [facility] BUN 8 MG/DL 7 - 21 [facility] Creatinine [Mass/volume] in Serum or Plasma 0.5 MG/DL 0.7 - 1.5 L [facility] BUN/CREAT 16 8 - 27 [facility] Protein [Mass/volume] in Serum or Plasma 6.6 G/DL 6.3 - 8.2 [facility] Albumin [Mass/volume] in Serum or Plasma 4.3 G/DL 3.9 - 5.0 [facility] Globulin [Mass/volume] in Serum by calculation 2.3 GM/DL 2.4 - 3.2 L [facility] A/G RATIO 1.9 0.8 - 2.0 [facility] Calcium [Mass/volume] in Serum or Plasma 9.8 MG/DL 8.4 - 10.2 [facility] Bilirubin.total [Mass/volume] in Serum or Plasma <0.7 MG/DL 0.2 - 1.3 [facility] Alkaline phosphatase [Enzymatic activity/volume] in Serum or Plasma 69 U/L 38 - 126 [facility] Aspartate aminotransferase [Enzymatic activity/volume] in Serum or Plasma 12 U/L 5 - 40 [facility] Alanine aminotransferase [Enzymatic activity/volume] in Seru m or Plasma 6 U/L 7 - 56 L [facility] Anion gap 3 in Serum or Plasma 7.0 mmol/L 8.0 - 16.0 L [facility] AGE 25 yrs [facility] al NON-AA GFR >60 mL/min [facility] ital AFR AMER GFR >60 mL/min [facility] Ho spital Male GFR In terprentation 20-49 [...] >32 mL/min Normal ID Date Data Source [id number] 08/14/2020 07:33:00 PM EDT [facility] Name Value Range Interpretation Code Description Data Rachel rce(s) Supporting Document(s) Lactate [Moles/volume] in Serum or Plasma 1.4 MMOL/L 0.2 - 2.2 [facility] ID Date Data Source [id number] 08/14/2020 07:25:00 PM EDT [facility] Name Value Range Interpretation Code Description Data Rachel rce(s) Supporting Document(s) CBC W/AUTOMATED DIFF [facility] COMPLETE BLOOD COUNT Leukocytes [#/volume] in Blood by Automated count 6.7 10^3/uL 4.2 - 1 1.0 [facility] Erythrocytes [#/volume] in Blood by Automated count 4.16 10^6/uL 4. 20 - 5.40 L [facility] Hemoglobin [Mass/volume] in Blood 13.4 g/dL 12.0 - 16.0 [facility] Hematocrit [Volume Fraction] of Blood by Automated count 40.4 % 3 7.0 - 47.0 [facility] Erythrocyte mean corpuscular volume [Entitic volume] by Auto mated count 97.1 fL 81.0 - 101 [facility] Erythrocyte mean corpuscular hemoglobin [Entitic mass] by Automated count 32.2 pg 27.0 - 34.0 [facility] Erythrocyte mean corpuscular hemoglobin concentration [Mass/volume] by Automated count 33.2 g/dL 31.0 - 36.0 [facility] Erythrocyte distribution width [Ratio] by Automated count 12.5 % 11.5 - 14.5 [facility] Platelets [#/volume] in Blood by Automated count 231 10^3/uL 150 - 45 0 [facility] Platelet mean volume [Entitic volume] in Blood by Automated count 10.6 fL 7.4 - 10.4 H [facility] Neutrophils/100 leukocytes in Blood by Automated count 52.7 % 37. 0 - 80.0 [facility] Lymphocytes/100 leukocytes in Blood by Manual count 36.0 % 25.0 - 40.0 [facility] Monocytes/100 leukocytes in Blood by Automated count 8.8 % 3.0 - 8.0 H [facility] Eosinophils/100 leukocytes in Blood by Automated count 1.6 % 0.0 - 7.0 [facility] Basophils/100 leukocytes in Blood by Automated count 0.6 % 0.0 - 2.5 [facility] %IG 0.3 % 0.0 - 0.0 [facility] %NRBC 0.0 % 0.0 - 0.0 [facility] al Neutrophils [#/volume] in Blood by Automated count 3.51 10^3/uL 2.00 - 6.90 [facility] Lymphocytes [#/volume] in Blood by Automated count 2.40 10^3/uL 0.60 - 3.40 [facility] Monocytes [#/volume] in Blood by Automated count 0.59 10^3/uL 0.00 - 0.90 [facility] Eosinophils [#/volume] in Blood by Automated count 0.11 10^3/uL 0.00 - 0.70 [facility] Basophils [#/volume] in Blood by Automated count 0.04 10^3/uL 0.00 - 0.20 [facility] #IG 0.02 10^3/uL 0.00 - 0.10 [facility] H ospital #NRBC 0.00 10^3/uL 0.00 - 0.00 [facility] ospital MANUAL DIFF NOT INDICATED [facility] RBC MORPH NOT INDICATED [facility] spital ID Date Data Source [id number] 07/10/2020 02:44:00 PM EST [facility] ([facility]) Name Value Range Interpretation Code Description Data Rachel rce(s) Supporting Document(s) Glucose, Fasting 94 mg/dL 70-100 [facility] ([facility]) Blood Urea Nitrogen 10 mg/dL 7-18 [facility] ([facility]) Creatinine For GFR 0.60 mg/dL 0.55-1.30 [facility] ([facility]) Glomerular Filtration Rate Laboratory [facility] <content>Units are mL/min/1.73 m2</content>
<content></content>
<content>Chronic Kidney Disease Staging per NKF:</content>
<content></content>
<content>Stage I & II GFR >=60 Normal to Mildly Decreased</content>
<content>Stage III GFR 30- 59 Moderately Decreased</content>
<content>Stage IV GFR 15-29 Severely Decreased</content>
<content>Stage V GFR <15 Very Little GFR Left</content>
<content>ESRD GFR <15 on FIELD CROP FARMER</content>
<content></content> Sodium Level 139 meq/L 136-145 [facility] ([facility]) Potassium Serum 4.3 meq/L 3.5-5.1 [facility] ([facility]) Chloride Level 105 meq/L 98-107 [facility] ([facility]) Carbon Dioxide Level 30 meq/L 21-32 [facility] ([facility]) Anion Gap 4 meq/L 8-16 [facility] ([facility]) Ast/Sgot 7 U/L 7-37 [facility] ([facility]) Calcium Level 9.5 mg/dL 8.5-10.1 [facility] ([facility] Alt/SGPT 17 U/L 12-78 [facility] ([facility]) Bilirubin,Total 0.3 mg/dL 0.2-1.0 [facility] ([facility]) Alkaline Phosphatase 85 U/L 45-117 MED[facility] ( [facility], [facility]) Albumin 4.1 GM/DL 3.2-5.2 MED[facility] ([facility], [facility]) Total Protein 7.6 GM/DL 6.4-8.2 MED[facility] ([facility], [facility]) Albumin/Globulin Ratio 1.2 1.2-2.2 MED[facility] ([facility], [facility]) ID Date Data Source [id number] 07/10/2020 02:44:00 PM EST MEDENT ([facility], [facility]) Name Value Range Interpretation Code Description Data Rachel rce(s) Supporting Document(s) White Blood Count 6.7 10 4.0-10.0 MED[facility] ([facility], [facility]) Red Blood Count 4.57 10 4.00-5.40 MED[facility] ([facility], [facility]) Hemoglobin 14.1 g/dL 12.0-15.5 [facility] ([facility] Hematocrit 45.2 % 36.0-47.0 [facility] ([facility], [facility]) Mean Corpuscular Volume 98.9 fl 80.0-96.0 M EDENT ([facility], [facility]) Mean Corpuscular HGB Conc 31.2 g/dL 32.0-36.5 MED[facility] ([facility], [facility]) Mean Corpuscular Hemoglobin 30.9 pg 27.0-33.0 MED[facility] ([facility], [facility]) Red Cell Distribution Width 12.5 % 11.5-14.5 MED[facility] ([facility], [facility]) Platelet Count, Automated 247 10 150-450 MED[facility] ([facility], [facility]) Neutrophils % 65.4 % 36.0-66.0 MED[facility] ([facility], [facility]) Lymph % 26.9 % 24.0-44.0 MED[facility] ([facility], [facility]) [place] % 6.6 % 2.0-8.0 MED[facility] ([facility], [facility]) Eos % 0.6 % 0.0-3.0 [facility] ([facility], [facility]) Baso % 0.4 % 0.0-1.0 MED[facility] ([facility], [facility]) Immature Granulocyte % 0.1 % 0-3.0 MED[facility] ([facility], [facility]) Neutrophils # 4.4 10 1.5-8.5 MED[facility] ([facility], [facility]) Nucleated Red Blood Cell % 0.0 % 0-0 MED ENT ([facility], [facility]) Lymph # 1.8 10 1.5-5.0 MED[facility] ([facility], [facility]) [place] # 0.4 10 0.0-0.8 MED[facility] ([facility], [facility]) Baso # 0.0 10 0.0-0.2 [facility] ([facility], [facility]) Eos # 0.0 10 0.0-0.5 [facility] ([facility], [facility]) ID Date Data Source [id number] 07/04/2020 01:30:00 PM EST MEDENT ([facility]) Name Value Range Interpretation Code Description Data Rachel rce(s) Supporting Document(s) Influenza virus A RNA [Presence] in Unsp ecified specimen by Probe and target amplification method Laboratory test result MEDENT ([facility]) Influenza virus B RNA [Presence] in Unsp ecified specimen by Probe and target amplification method Laboratory test result MED[facility] ([facility]) ID Date Data Source [id number] 07/04/2020 01:29:00 PM EST [facility] Name Value Range Interpretation Code Description Data Rachel rce(s) Supporting Document(s) SARS coronavirus 2 RNA Not Detected [facility] This lab was ordered by [facility] Gonzalez rodriguez and reported by [email or web address]. ID Date Data Source [id number] 07/07/2020 04:20:00 PM EST Health System Name Value Range Interpretation Code Description Data Rachel rce(s) Supporting Document(s) SARS-CoV-2, JUAN Not Detected Not Detected Health System This nucleic acid amplification test was developed and its performancecharacteristics determined by [employer]. Nucleic acidamplification tests include RT-PCR and TMA. [...] Current Smoker completed Curre nt Smoker eCW1 ([facility]) Smoking 11/01/2020 12:00:00 AM EDT Current Smoker completed Curre nt Smoker eCW1 ([facility]) Vital Signs ID Date Data Source UNK Name Value Range Interpretation Code Description Data Source(s) Body weight 170.38 [lb_av] 170.38 [lb_av] MEDEN T ([facility]) Body weight 77.282 kg 77.282 kg MEDENT ([facility]) Body height 68 [in_i] 68 [in_i] MED[facility] ([facility]) 5'8" Body mass index (BMI) [Ratio] 25.9 kg/m2 25.9 k g/m2 [facility] ([facility]) Body surface area Derived from formula 1.91 m2 1.91 m2 MED[facility] ([facility]) Systolic blood pressure 116 mm[Hg] 116 mm[Hg] M EDENT ([facility]) Diastolic blood pressure 76 mm[Hg] 76 mm[Hg] [facility] ([facility]) Respiratory rate 18 /min 18 /min MED[facility] ( [facility]) Oxygen saturation in Arterial blood by Pulse oximetry 97 % 97 % MED[facility] ([facility]) Body weight 164.2 [lb_av] 164.2 [lb_av] eCW1 ([facility]) Body height 68 [in_i] 68 [in_i] eCW1 ([facility]) Body mass index (BMI) [Ratio] 24.96 kg/m2 24.96 kg/m2 W1 ([facility]) Heart rate 87 /min 87 /min W1 ([facility]) Respiratory rate 16 /min 16 /min eCW1 ([facility]) Body temperature 97.6 [degF] 97.6 [degF] eCW1 ( [facility]) Systolic blood pressure 111 mm[Hg] 111 mm[Hg] e CW1 ([facility]) Diastolic blood pressure 75 mm[Hg] 75 mm[Hg] eCW1 ([facility]) Respiratory rate 16 /min 16 /min MEDENT ( [facility], [facility]) Body height 67 [in_i] 67 [in_i] MEDENT ([facility]) 5'7" Body weight 155.00 [lb_av] 155.00 [lb_av] MEDEN T ([facility], [facility]) Body mass index (BMI) [Ratio] 24.3 kg/m2 24.3 k g/m2 MED[facility] ([facility], [facility]) Body temperature 97.0 [degF] 97.0 [degF] [facility] ([facility], [facility]) Oxygen saturation in Arterial blood by Pulse oximetry 97 % 97 % [facility] ([facility], [facility]) Systolic blood pressure 115 mm[Hg] 115 mm[Hg] M EDENT ([facility] [facility], [facility]) Diastolic blood pressure 80 mm[Hg] 80 mm[Hg] [facility] ([facility], [facility]) Heart rate 95 /min 95 /min [facility] ([facility], [facility]) Body temperature 98.1 [degF] 98.1 [degF] [facility] ([facility]) Respiratory rate 16 /min 16 /min [facility] ( [facility]) Oxygen saturation in Arterial blood by Pulse oximetry 98 % 98 % [facility] ([facility]) Heart rate 87 /min 87 /min [facility] ([facility]) ID Date Data Source [id number] 01/03/2021 02:45:29 PM EDT Health System Name Value Range Interpretation Code Description Data Source(s) WEIGHT RECORDED 160.00 pounds 160.00 pounds [facility] Height 67 Inches 067 Inches [facility]
[2021-04-13] MEDS ORDERED: NS 1,000 ML IV ONE (06:20)
[2021-04-13] MEDS ORDERED: ONDANSETRON 4MG/2ML VIAL IV ONE (06:20)
[2021-04-13] MEDS ORDERED: KETOROLAC 30 MG/ML 1ML VIAL IV ONE (06:40)
[2021-04-13] MEDS ORDERED: ISOVUE-370 76% 100ML VIAL As Ordered ONE (06:49)
[2021-04-13 07:01] LABS: BASO % 0.3 % (0.0-1.0); EOS # 0.1 10^3/uL (0.0-0.5); EOS % 1.2 % (0.0-3.0); HEMATOCRIT 41.3 % (36.0-47.0); HEMOGLOBIN 13.4 g/dl (12.0-15.5); LYMPH # 2.9 10^3/uL (1.5-5.0); LYMPH % 32.4 % (24.0-44.0); MEAN CORPUSCULAR HGB CONC 32.4 g/dl (32.0-36.5); MEAN CORPUSCULAR VOLUME 98.6 fl (80.0-96.0); MONO # 0.7 10^3/uL (0.0-0.8); MONO % 7.8 % (2.0-8.0); NEUTROPHILS # 5.2 10^3/uL (1.5-8.5); NEUTROPHILS % 58.1 % (36.0-66.0); PLATELET COUNT, AUTOMATED 244 10^3/uL (150-450); RED BLOOD COUNT 4.19 10^6/uL (4.00-5.40); WHITE BLOOD COUNT 8.9 10^3/uL (4.0-10.0)
[2021-04-13 07:20] LABS: ALBUMIN 4.1 GM/DL (3.2-5.2); ALT/SGPT 17 U/L (12-78); BILIRUBIN,DIRECT < 0.1 MG/DL (0.0-0.2); BILIRUBIN,TOTAL 0.4 MG/DL (0.2-1.0); LIPASE 111 U/L (73-393); TOTAL PROTEIN 8.2 GM/DL (6.4-8.2)
[2021-04-13] MEDS ORDERED: ACETAMINOPHEN 325 MG TAB PO ONE (07:45)
--- OUTSIDE RECORDS SUMMARY | 2021-04-13 07:48 | CCD ---
Author Author [facility] Organization [facility] Address Unknown Phone Unavailable Care Team Providers Care Supervisor Slitting And Shipping Name Role Phone Nwogu, U John DO [...] Aiken MD Unavailable Unavailable LAROCK, Jie [facility] CLINICIAN Unavailable Unavailable LAROCK, J [facility] BEH[facility] HE[facility] CLINICIAN Unavailable Unavailable LAROCK, J [facility] BEHAV[facility] HE[facility] CLINICIAN Unavailable Unavailable LAROCK, J [facility]ER[facility] BEHAV[facility] HEALTH CLINICIAN Unavailable Unavailable LAROCK, J FERNA[facility] BEHAVIOR[facility] HEALTH CLINICIAN Unavailable Unavailable LAROCK, J FERNA[facility]DA BEHAVIORAL HEALTH CLINICIAN Unavailable Unavailable LAROCK, J FERNANDA BEHAVIORAL HEALTH CLINICIAN Unavailable Unavailable LAROCK, J FERNA[facility]DA BEHAVIORAL HEALTH CLINICIAN Unavailable Unavailable LAROCK, J FERNA[facility]DA BEHAVIORAL HEALTH CLINICIAN Unavailable Unavailable LAROCK, J FERNA[facility]DA BEHAVIORAL HEALTH CLINICIAN Unavailable Unavailable LAROCK, J FERNA[facility] BEHAVIORAL HEALTH CLINICIAN Unavailable Unavailable LAROCK, J FERNANDA BEHAVIORAL HEALTH CLINICIAN Unavailable Unavailable LAROCK, J FERNANDA BEHAVIORAL HEALTH CLINICIAN Unavailable Unavailable LAROCK, J FERNANDA BEHAVIORAL HEALTH CLINICIAN Unavailable Unavailable LAROCK, J FERNA[facility]DA BEHAVIOR[facility] HEALTH CLINICIAN Unavailable Unavailable LAROCK, J FERNANDA BEHAVIORAL HEALTH CLINICIAN Unavailable Unavailable LAROCK, J FERNANDA BEHAVIORAL HEALTH CLINICIAN Unavailable Unavailable LAROCK, J FERNANDA BEHAVIORAL HEALTH CLINICIAN Unavailable Unavailable LAROCK, J FERNANDA BEHAVIORAL HEALTH CLINICIAN Unavailable Unavailable LAROCK, J FERNANDA BEHAVIORAL HEALTH CLINICIAN Unavailable Unavailable LAROCK, J FERNANDA BEHAVIORAL HEALTH CLINICIAN Unavailable Unavailable LAROCK, J [facility]ERNA[facility] BEHAVIOR[facility] HEALTH CLINICIAN Unavailable Unavailable SYMENOLuis A G LAURAOPHER PA [...] Sherrie Mira PA Unavailable Unavailable Chan, Sherrie Baronen PA Unavailable Unavailable Chan, Sherrie [...] Sage DO Unavailable Unavailable Robertshaw, Doug Unavailable [phone] Robertshaw, Doug Unavailable [phone] Robertshaw, Doug Unavailable [phone] Robertshaw, Doug Unavailable [phone] Robertshaw, Doug Unavailable [phone] Robertshaw, Doug Unavailable [phone] [facility] Unavailable Unavailable WOLFENDEN, T NINA PA [...] C JOHN MD Unavailable Unavailable CHANLIECCO, C JONH MD Unavailable Unavailable CHANLIECCO, C JOHN MD [...] is protected by Article 27-F of the [facility] Public Health law. If you continue you may have access to information: Regarding HIV / AIDS; Provided by facilities licensed or operated by the [facility] Office of Mental Health; or Provided by the [facility] Office for People With Developmental Disabilities. If such information is present, then the following [facility] mandated warning applies: This information has [...] Known Drug Allergies No Known Drug Allergies [facility] Propensity to adverse reactions BEE STING BEE STING ANAPHYLAXIS [facility] Food allergy COCONUT COCONUT ITCHING [facility] Food allergy WATERMELON WATERMELON ITCHING [facility] Encounters Encounter Providers Location Date Indications Data Source(s ) Emergency Attender: JENNY AKERS MDConsultant: Kathy dave MD 03/31/2021 06:31:00 PM EST - 03/31/2021 11:42:00 PM EST [facility] Patient discharged. Emergency Attender: NINA Doveerrer: Kahty Aiken MD EMERGENCY ROOM-ER 03/16/2021 09:26:00 AM EDT - 03/16/2021 12:20:00 PM EDT [facility] Patient discharged. Unknown [address] [facility] [address] 02/27/2021 12:00:00 AM EDT [facility] ([facility]) Outpatient Attender: John Johnson DOConsultant: Kathy barrientos MD 12/20/2020 01:15:00 PM EDT - 12/20/2020 01:15:00 PM EDT [facility] Outpatient Attender: John Johnson [facility] 12/09 01:15:00 PM EDT [facility] ([facility] Emergency Attender: TJ TURNERConsultant: Kathy dave MD 12/19/2020 01:35:00 PM EDT - 12/19/2020 04:10:00 PM EDT [facility] Patient discharged. Emergency Attender: JENNY AKERS MDConsultant: Kathy dave MD 12/18/2020 10:14:00 PM EDT - 12/19/2020 04:00:00 AM EDT [facility] Patient discharged. Emergency Attender: JOHN ANGULO MDConsultant: Rojas Aiken MD 12/02/2020 03:34:00 PM EDT - 12/02/2020 06:51:00 PM EDT [facility] Patient discharged. Outpatient [address] [facility] [address] 11/01/2020 12:00:00 AM EDT eCW1 ([facility]) Emergency Attender: BRIDGER BLANCO PAReferrer : Kathy Aiken MD EMERGENCY ROOM-EMERGENCY ROOM 10/17/2020 11:40:00 PM EDT - 10/17/2020 11:40:00 PM EDT [facility] Patient discharged. Outpatient Attender: Sage Anguloultant: Kathy meza MD 10/15/2020 07:45:00 AM EDT - 10/15/2020 12:24:00 PM EDT [facility] Patient discharged. Outpatient Attender: Sage SULLIVANonsultant: Kathy meza MD 10/10/2020 10:41:00 AM EDT - 10/10/2020 11:41:00 AM EDT [facility] Patient discharged. Outpatient Attender: Brent WALLER 10/06/19 09:54:06 AM EDT - 10/05/2020 10:33:25 AM EDT [facility] ([facility] ) Outpatient Attender: Sage Magañaant: Kathy meza MD 10/04/2020 01:18:13 PM EDT - 10/05/2020 09:05:00 AM EDT [facility] Patient discharged. Outpatient Attender: Doug Quevedo 09/26 03:22:43 PM EDT - 09/26/2020 04:56:57 PM EDT [facility] ([facility] ) Outpatient Attender: FERNANDA FORMAN NP 12/2020 03:06:47 PM EDT - 09/15/2020 04:55:09 PM EDT [facility] ([facility] ) Emergency Attender: TJ Skysultant: Kathy dave MD 08/27/2020 10:54:00 PM EDT - 08/28/2020 02:23:00 AM EDT [facility] Patient discharged. Outpatient Attender: Brent WALLER 08/28/19 01:59:07 PM EDT - 08/27/2020 02:35:23 PM EDT [facility] ([facility] ) Emergency Attender: JENNYToby AKERS MDConsultant: [facility] 08/14/2020 06:54:00 PM EDT - 08/14/2020 08:29:00 PM EDT [facility] Patient discharged. Outpatient Attender: Mira morales 07/10/2020 12:00:00 PM EST [facility] ([facility]) Outpatient Attender: Vernon WALLER 01:23:00 PM EST - 07/04/2020 01:23:00 PM EST [facility] Immunizations Vaccine Date Status Description Data Source(s) COVID-19 VACCINE Pfizer 02/20/2021 12:00:00 AM EDT completed [facility] Vaccine Series Complete: YESThis Data wa s Submitted to [facility] [employer]. COVID-19 VACCINE Pfizer 01/30/2021 12:00:00 AM EDT completed [facility] Vaccine Series Complete: NOThis Data was Submitted to [facility] [employer]. Medications Medication Brand Name Start Date Product Form Dose Route Admi nistrative Instructions Pharmacy Instructions Status Indications Reaction Description Data Source(s) Rocephin/Ceftriaxone Sodium Injection Per 250 MG 07/10 12:00:00 AM EST completed [facility] Medication administered onsite No Active Medications 07/10/2020 12:00:00 AM EST completed [facility] doxycycline hyclate 100 MG Oral Capsule Doxycycline Hyclate 07/10/2020 12:00:00 AM EST active [facility] ([facility]) Insurance Providers Payer name Policy type / Coverage type Policy ID Covered constitution party ID Covered constitution party's relationship to viveros Policy Viveros Plan Information [facility] [id number] [facility] [id number] [facility] [id number] [facility] Health Plan / [id number] Self [id number] Needs Workers Comp Information [employer] Health Claim [id number] Employee [id number] [facility] [id number] 18 [id number] [facility] [place] [id number] 01 [id number] [facility] [id number] [place]2 [id number] [facility] U[facility]ILABLE 01 UNAVAILABLE [facility] [id number] H [id number] [facility] [id number] [facility] [id number] H [id number] [facility] [id number] 18 [id number] [facility] [id number] S [id number] [facility] [id number] 01 [id number] Problems, Conditions, and Diagnoses Code Display Name Description Problem Type Effective Dates Data Source(s) H05655 Personal history of nicotine dependence Personal history of nicotine dependence Diagnosis 03/31/2021 06:31:00 PM [facility] Z8742 Personal history of other diseases of th e female genital tract Personal history of other diseases of the female genital tract Diagnosis 03/31/2021 06:31:00 PM [facility] R1030 Lower abdominal pain, unspecified Lower abdomina l pain, unspecified Diagnosis 03/31/2021 06:31:00 PM [facility] R102 Pelvic and perineal pain Pelvic and perineal pain Diag nosis 03/31/2021 06:31:00 PM [facility] Z79.899 Other correction (current) drug therapy O THER SKILLED NURSING (CURRENT) DRUG THERAPY Diagnosis 03/16/2021 09:26:[facility] Z[facility].1 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 non-steroidal anti-inflammatories (NSAID) SOFTWARE 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 MANAGER (CURRENT) USE OF NON-STEROIDAL NON-INFLA Diagnosis 03/16/20 09:26:00 AM [facility] Z90.49 Acquired absence of other specified part s of digestive tract ACQUIRED ABSENCE OF OTHER SPECIFIED PARTS OF DIGES Diagnosis 03/16/2021 09:26:0 0 AM [facility] F17.210 Nicotine dependence, cigarettes, uncompl icated NICOTINE DEPENDENCE, CIGARETTES, UNCOMPLICATED Diagnosis 03/16/2021 09:26:00 AM [facility] N83.01 FOLLICULAR CYST OF RIGHT OVARY FOLLICULAR CYST OF RIGH T OVARY Diagnosis 03/16/2021 09:26:00 AM [facility] R10.31 Right lower quadrant pain RIGHT LOWER QUADRANT PAIN Di agnosis 03/16/2021 09:26:00 AM [facility] A09030 Nicotine dependence, cigarettes, uncompl icated Nicotine dependence, cigarettes, uncomplicated Diagnosis 12/19/2020 01:35:00 PM [facility] U62983 Unspecified ovarian cyst, left side Unspecified ovarian cyst, left side Diagnosis 12/19/2020 01:35:00 PM [facility] N9489 Other specified conditions a ssociated with female genital organs and menstrual cycle Other specified conditions associated wi th female genital organs and menstrual cycle Diagnosis 12/18/2020 10:14:00 PM [facility] R1032 Left lower quadrant pain Left lower quadrant pain Diag nosis 12/18/2020 10:14:00 PM [facility] E77137 Unspecified place in unspeci fied non-institutional (private) residence as the place of occurrence of the external cause Unspecified place in unspecified non-institutional (private) residence as the place of occurrence of the external cause Diagnosis 12/02/2020 03:34:00 PM [facility] W393SUB Contact with other sharp obj ect(s), not elsewhere classified, initial encounter Contact with other sharp object(s), not elsewhere classified, initial encounter Diagnosis 12/02/2020 03:34:00 PM [facility] Z23 Encounter for immunization Encounter for immunization Diagnosis 12/02/2020 03:34:00 PM [facility] R34980 Nicotine dependence, other tobacco produ ct, uncomplicated Nicotine dependence, other tobacco product, uncomplicated Diagnosis 12/02 03:34:00 PM [facility] U83219K Abrasion, right foot, initial encounter Abrasion, right foot, initial encounter Diagnosis 12/02/2020 03:34:00 PM [facility] [id number] Unspecified injury of right foot, initia l encounter Unspecified injury of right foot, initial encounter Diagnosis 12/02/2020 03:34:00 PM [facility] G89.18 Other acute postprocedural pain OTHER ACUTE POST PROCEDURAL PAIN Diagnosis 10/17/2020 11:40:00 PM [facility] N13.2 Hydronephrosis with renal and ureteral c alculous obstruction HYDRONEPHROSIS WITH RENAL AND URETERAL CALCULOUS O Diagnosis 01/2021 11:40:00 PM [facility] R10.2 Pelvic and perineal pain PELVIC AND PERINEAL PAIN Diag nosis 10/17/2020 11:40:00 PM [facility] W04664 Nicotine dependence, unspecified, uncomp licated Nicotine dependence, unspecified, uncomplicated Diagnosis 10/15/2020 07:45:00 AM EDT [facility] G8929 Other chronic pain Other chronic pain Diagnosis 11/2020 07:45:00 AM EDT [facility] N809 Endometriosis, unspecified Endometriosis, unspecified Diagnosis 10/15/2020 07:45:00 AM EDT [facility] 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) Diagnosis 10/15/2020 07:45:00 AM EDT [facility] N7011 Chronic salpingitis Chronic salpingitis Diagnosis 0 10/15/2020 07:45:00 AM [facility] Z1152 ENCOUNTER FOR SCREENING FOR COVID-19 ENCOUNTER F OR SCREENING FOR COVID-19 Diagnosis 10/10/2020 10:41:00 AM [facility] K13982 Encounter for other preprocedural examin ation Encounter for other preprocedural examination Diagnosis 10/05/2020 08:15:00 AM EDT [facility] Z82350 Elevated white blood cell count, unspeci fied Elevated white blood cell count, unspecified Diagnosis 08/27/2020 10:54:00 PM EDT [facility] R7402 Elevation of levels of lactic acid dehyd rogenase [LDH] Elevation of levels of lactic acid dehydrogenase [LDH] Diagnosis 08/27/2020 10:54:00 PM E [facility] B349 Viral infection, unspecified Viral infection, unspecif ied Diagnosis 08/27/2020 10:54:00 PM EDT [facility] R1012 Left upper quadrant pain Left upper quadrant pain Diag nosis 08/27/2020 10:54:00 PM EDT [facility] R1031 Right lower quadrant pain Right lower quadrant pain Di agnosis 08/14/2020 06:54:00 PM EDT [facility] N94.9 [id number] Adnexal cyst Problem 11/01/2020 12:00:00 AM EDT eCW1 ([facility]) Surgeries/Procedures Procedure Description Date Indications Data Source(s) OFFICE OUTPATIENT NEW 30 MINUTES 12/20/2020 12:00:00 A M EDT [facility] ([facility]) Therapeutic, Prophylactic Or Diagnostic Injection Subq/Im 07/10/2020 12:00:00 AM EST [facility] ([facility]) Results ID Date Data Source [id number] 04/02/2021 06:34:00 AM EST [facility] [address] [place] [address] PHONE: [phone] FAX: [phone] Name .................. : JOCELINE GARCIA Chan Acct Number.................. : [id number] ROOM. ................. : [address] Number ................... : [id number] Stay type ............. : E/R Discharge Date......... ... : 03/31/21 Admit Date ......... : 03/31/21 Admit Phys .................... : COONEYNORM Date of ....... : 1995 Family Phys ................... : JOCELYNE VEGA Phone .................. : [phone] Age ................................ : 26 Film# .................. .:[id number] Sex ................................. : F Unsigned transcriptions are preliminary reports and do not represent a medical or legal document PELVIC 62867 COMPLETE:03/31/21 22:54 ADB 38823 Reason(s): recent dx of pelvic congestion syndrome [...] 04/02/21 06:34, SCB Page 1 of 2 [place] [address] PHONE: [phone] FAX: [phone] Name .................. : JOCELINE GARCIA Chan Acct Number.................. : [id number] ROOM. ................. : TR-03 MR Number ................... : [id number] Stay type ............. : E/R Discharge Date......... ... : 03/31/21 Admit Date ......... : 03/31/21 Admit Phys .................... : COONEYNORM Date of ....... : 1995 Family Phys ................... : JOCELYNE VEGA Phone .................. : [phone] Age ................................ : 26 Film# .................. .:[id number] Sex ................................. : F Unsigned transcriptions are preliminary reports and do not represent a medical or legal document PELVIC 20570 COMPLETE:03/31/21 22:54 ADB 76332 Reason(s): recent dx of pelvic congestion syndrome Transcribe Initials: RIANNA , Transcribe Date: 04/01/21 11:49, Dictation Date: Copy for: EMERGENCY DEPT via mode Copy for: 710 MED REC DISCHARGED Page 2 of 2 Name Value Range Interpretation Code Description Data Rachel rce(s) Supporting Document(s) ID Date Data Source [id number] 04/02/2021 06:34:00 [place] [address] PHONE: [phone] FAX: [phone] Name .................. : JOCELINE Nguyễn Acct Number.................. : [id number] ROOM. ................. : TR-03 Number ................... : [id number] Stay type ............. : E/R Discharge Date......... ... : 03/31/21 Admit Date ......... : 03/31/21 Admit Phys .................... : COONEYNORM Date of ....... : 1995 Family Phys ................... : JOCELYNE GI Phone .................. : [phone] Age ................................ : 26 Film# .................. .:[id number] Sex ................................. : F Unsigned transcriptions are preliminary reports and do not represent a medical or legal document CT ABD & PELVIS W/ IV ONLY 01301 COMPLETE:03/31/21 21:07 MWB 38527 Reason(s): Abdominal Pain CT ABDOMEN AND PELVIS [...] No free air. Page 1 of 2 [facility] [address] [place] [address] PHONE: [phone] FAX: [phone] Name .................. : JOCELINE Nguyễn Acct Number.................. : [id number] ROOM. ................. : TR-03 MR Number ................... : [id number] Stay type ............. : E/R Discharge Date......... ... : 03/31/21 Admit Date ......... : 03/31/21 Admit Phys .................... : COONEYNORM Date of ....... : 1995 Family Phys ................... : JOCELYNE VEGA Phone .................. : [phone] Age ................................ : 26 Film# .................. .:[id number] Sex ................................. : F Unsigned transcriptions are preliminary reports and do not represent a medical or legal document CT ABD & PELVIS W/ IV ONLY 88222 COMPLETE:03/31/21 21:07 MWB 72860 Reason(s): Abdominal Pain NODES/RETROPERITONEUM: No adenopathy. No [...] rce(s) Supporting Document(s) ID Date Data Source [id number] 03/31/2021 06:31:00 PM EST [facility] 1 OrderSheet [facility] Emergency Department [address] [place] [address] Phone #: [phone] pyt- [phone] 03/31/2021 18:26 Patient: ZARIA CAR Sex: F [...] 18:49 Vinita Akers, Jenny MD; Bhavna Moore blanket inspector, Deric ER R.N. [id number] Serum Qual STAT 18:36 03/31/2021 18:38 Oswald Moore Norma MD; Bhavna GriffithDIAGNOSTIC STUDY ORDERSOrder Description Priority Entered Acknowledged InitialedCT Abd PEL W/ IV STAT 19:49 03/31/2021 Ack'd: 19:58 20:09 BurnhamContrast Only Jenny Akers MD; Bhavna Moore blanket inspector, Deric ER(Oxygen?(No)) R.NAzul Tech1(IV?(Yes)) NOTES: periumbilical and rlq pain Reason for Study: Abdominal PainUS Pelvis STAT 21:17 03/31/2021 Ack'd: 21:17 22:20 Yolanda,(Oxygen?(No)) Jenny Akers MD; Bhavna Moore R.N. Reason for Study: recent dx of pelvic congestion syndromeMEDICATION/IV/DRIP/FLUID ORDERS 2 OrderSheet [facility] Emergency Department [address] [place] [address] Phone #: ext- [phone] 03/31/2021 18:26 Patient: ZARIA CAR Sex: F : 1995 Age: 26yOrder Description Priority Entered Acknowledged InitialedIV NS 1000 mL 18:36 03/31/2021 Ack'd: 1 8:38 19:03 Oscar,Bolus : Bolus 1000 Jenny Akres MD; Bhavna Moore R.N.mL (X1) R.N.Zofran IVP [...] IVP 50 21:18 03/31/2021 Ack'd: 22:06 22:07 [place],[facility] [place] Jenny Akers MD; Bhavna Moore R.NAzulMEDICATION) R.N.GENERAL ORDERSOrder Description Priority Entered Acknowledged Initialed[Electronically signed by Jenny Akers MD (23:38 03/31/2021)][Electronically signed by Vania Guerrero (23:41 03/31/2021)][Electronically locked by Vania Guerrero (23:41 03/31/2021)] Name Value Range Interpretation Code Description Data Rachel rce(s) Supporting Document(s) ID Date Data Source [id number] 03/31/2021 06:31:00 PM EST [facility] 1 Medication Reconciliation Report [facility] Emergency Department [address] [place] [address] Phone #: ext- [phone] 03/31/2021 18:26 Patient: [...] rce(s) Supporting Document(s) ID Date Data Source [id number] 03/31/2021 06:31:00 PM EST [facility] 1 Medication Administration Record [facility] Emergency Department [address] [place] [address] Phone #: ext- [phone] 03/31/2021 18:26 Patient: ZARIA CAR Sex: F : 1995 Age: 26yWeight: 74.8 kgHeight/Length: 69 inBMI: 24.4ALLERGIES: No Known Drug Allergy Date/Time Medication Administered Medication OrderedStart NS [IV] IV NS 1000 mL Bolus : Bolus [id number] 03/31/2021 Dose: IV Fluids mL (X1)Bhavna Moore [...] rce(s) Supporting Document(s) ID Date Data Source [id number] 03/31/2021 06:31:00 PM EST [facility] 1 General Instructions [facility] Emergency Department [address] [place] [address] Phone #: ext- [phone] 03/31/2021 18:26 Patient: [...] of Abdominal Pain (Female) 2 General Instructions [facility] Emergency Department [address] [place] [address] Phone #: ext- [phone] 03/31/2021 18:26 Patient: [...] for taking these medicines. 3 General Instructions [facility] Emergency Department [address] [place] [address] Phone #: wjf- [phone] 03/31/2021 18:26 Patient: ZARIA CAR Sex: F [...] begin to improve in thenext 24 hours.Call [phone] if any of these occur: Trouble breathing Confusion Fainting or loss of consciousness Rapid heart rate 4 General Instructions [facility] Emergency Department [address] [place] [address] Phone #: ext- [phone] 03/31/2021 18:26 Patient: [...] or water and you are getting dehydrated [id number] [employer]. All rights reserved. This information is not intended as a substitute for professional medical care. Alwaysfollow your healthcare professional's instructions. 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 --18:31 03/31/21 Lulú Mckeon R.N. 2 Clinical Report - Nurses [facility] Emergency Department [address] [place] [address] Phone #: ext- [phone] 03/31/2021 18:26 Patient: [...] normal limits. 3 Clinical Report - Nurses [facility] Emergency Department [address] [place] [address] Phone #: [phone] jgl- [phone] 03/31/2021 18:26 Patient: ZARIA CAR Sex: F [...] Moore R.N. 4 Clinical Report - Nurses [facility] Emergency Department [address] [place] [address] Phone #: ext- [phone] 03/31/2021 18:26 Patient: ZARIA CAR Sex: F : 1995 Age: 26y 19:30 03/31/21. BP: 113/72. MAP: 85. HR: 82. RR: 17. O2 saturation: 99%. --19:57 03/31/21 [facility] Tech, Deric, ER Tech1 Patient transported to [place] by wheelchair with mask and equipment maint tech. --20:11 03/31/21 [place] blanket inspector, Deric, ER Tech1 Patient returned from [place] by wheelchair with mask and equipment maint tech. --20:27 03/31/21 [facility] Tech Deric ER Tech1 21:01 03/31/2021 Zofran [...] from radiology by wheelchair with mask and equipment maint tech. --22:49 03/31/21 Sarah Atkins R.N. 22:49 03/31/2021 Fentanyl IVP Response: symptoms have improved the patient feels better. --22:49 03/31/21 Sarah Atkins R.N.DISPOSITION / DISCHARGE 23:34 03/31/21. BP: 130/79. HR: 73. RR: 16. O2 saturation: 98%. Temp: 98.0 F. Pain level now 08/18. --23:34 03/31/21 Vania Guerrero 5 Clinical Report - Nurses [facility] Emergency Department [address] [place] [address] Phone #: ext- [phone] 03/31/2021 18:26 Patient: ZARIA CAR Sex: F : 1995 Age: 26y 23:35 03/31/2021 Site #1 removed upon discharge. Catheter intact. Bandaid applied. --23:35 03/31/21 Vania Guerrero Condition at departure: improved and stable. No learning barriers present. Discharge instructions provided and reviewed with the patient. Reviewed warnings. Reviewed medication(s). Reviewed referrals. Work note given. Patient verbalized understanding. Written instructions provided in Haitian. The patient was discharged by the physician. She was discharged home and unaccompanied at time of discharge. She left ambulatory and via private vehicle. Waiter/Waitress Room Service driving. --23:40 03/31/21 Vania Guerrero [place] Coma Scale: 15- eyes open- spontaneous (4); best verbal response- oriented (5); best motor response- obeys commands (6). --23:41 03/31/21 Vania Guerrero Departure time: 23:41 03/31/2021. --23:41 03/31/21 Vania Guerrero.Locked/Released at 03/31/2021 23:41 by Vania Guerrero Name Value Range Interpretation Code Description Data Rachel rce(s) Supporting Document(s) ID Date Data Source [id number] 03/31/2021 06:31:00 PM EST [facility] 1 Clinical Report - Physicians/Mid Levels [facility] Emergency Department [address] [place] [address] Phone #: ext- [phone] 03/31/2021 18:26 Patient: ZARIA CAR Sex: F [...] Temp: 98.7 F. 2 Clinical Report - Physicians/[facility] Levels [facility] Emergency Department [address] [place] [address] Phone #: ext- [phone] 03/31/2021 18:26 Patient: ZARIA CAR Sex: F [...] congestion syndromeTRANSPORTATION: WC IV? O2? Oxygen?(No) Room: [facility] W/ IV Contrast Only: (ABILIO: 03/31/2021 19:49) [...] 450) 3 Clinical Report - Physicians/Mid Levels [facility] Emergency Department [address] [place] [address] Phone #: ext- [phone] 03/31/2021 18:26 Patient: [...] Male GFR Interprentation 20-49 yrs >60 mL/min Rvfgvg81-15 yrs >56 mL/min Normal 60-69 yrs >49 mL/min Normal 70-79yrs>42 mL/min Normal 80 and above >35 mL/min Normal Female GFRInterpretation 20-39 yrs >60 mL/min Normal 40-49 yrs >58 mL/minNormal 50-59 yrs >51 mL/min Normal 60-69 yrs >45 mL/min Zbbjdd98-83 yrs >39 mL/min Normal 80 and above >32 mL/min NormalLactic Acid: (ABILIO: 03/31/2021 18:51) ( [facility]31[facility] Final results Test Result Flag Units (Reference) LACTIC ACID 1.4 MMOL/L (0.2 - 2.2)Lipase: (ABILIO: 03/31/2021 18:51) ( [facility] [place] 03/31/2021 19:36) Final results Test Result Flag Units (Reference) LIPASE 26 U/L (13 - 60) 4 Clinical Report - Physicians/Mid Levels [facility] Emergency Department [address] [place] [address] Phone #: ext- [phone] 03/31/2021 18:26 Patient: [...] NEGATIVE (NORMAL: NEGAT { KIT LOT # [id number] ){ KIT EXP DATE 06-10-22 ){ PROCEDURAL [...] pain meds. pt was instructed to f/uwith wafer fabricator beginning of this week. pt voiced understanding of all instructions. Patient/family counseled. Disposition: Discharged. Condition: good and stable.CLINICAL IMPRESSION Right lower quadrant, suprapubic and left lower quadrant abdominal pain.No acute abdominal pain. Possible pelvic congestion syndrome. 5 Clinical Report - Physicians/Mid Levels [facility] Emergency Department [address] [place] [address] Phone #: ext- [phone] 03/31/2021 18:26 [id number] Sex: [facility] : 1995 Age: 26yINSTRUCTIONS Do [...] rce(s) Supporting Document(s) ID Date Data Source [id number] 03/31/2021 07:42:00 PM EST [facility] Name Value Range Interpretation Code Description Data [facility] rce(s) Supporting Document(s) CBC W/AUTOMATED DIFF [facility] COMPLETE BLOOD COUNT Leukocytes [#/volume] in Blood by Automated count 6.7 10^3/uL 4.2 - 1 1.0 [facility] Erythrocytes [#/volume] in Blood by Automated count 4.26 10^6/uL 4. 20 - 5.40 [facility] Hemoglobin [Mass/volume] in Blood 13.8 g/dL 12.0 - 16.0 [facility] Hematocrit [Volume Fraction] of Blood by Automated count 41.2 % 3 7.0 - 47.0 [facility] Erythrocyte mean corpuscular volume [Entitic volume] by Auto mated count 96.7 fL 81.0 - 101 [facility] Erythrocyte mean corpuscular hemoglobin [Entitic mass] by Automated count 32.4 pg 27.0 - 34.0 [facility] Erythrocyte mean corpuscular hemoglobin concentration [Mass/volume] by Automated count 33.5 g/dL 31.0 - 36.0 [facility] Erythrocyte distribution width [Ratio] by Automated count 12.3 % 11.5 - 14.5 [facility] Platelets [#/volume] in Blood by Automated count 262 10^3/uL 150 - 45 0 [facility] Platelet mean volume [Entitic volume] in Blood by Automated count 10.4 fL 7.4 - 10.4 [facility] Neutrophils/100 leukocytes in Blood by Automated count 56.7 % 37. 0 - 80.0 [facility] Lymphocytes/100 leukocytes in Blood by Manual count 33.4 % 25.0 - 40.0 [facility] Monocytes/100 leukocytes in Blood by Automated count 7.7 % 3.0 - 8.0 [facility] Eosinophils/100 leukocytes in Blood by Automated count 1.8 % 0.0 - 7.0 [facility] Basophils/100 leukocytes in Blood by Automated count 0.3 % 0.0 - 2.5 [facility] %IG 0.1 % 0.0 - 0.0 H [facility] al %NRBC 0.0 % 0.0 - 0.0 [facility] al Neutrophils [#/volume] in Blood by Automated count 3.82 10^3/uL 2.00 - 6.90 [facility] Lymphocytes [#/volume] in Blood by Automated count 2.25 10^3/uL 0.60 - 3.40 [facility] Monocytes [#/volume] in Blood by Automated count 0.52 10^3/uL 0.00 - 0.90 [facility] Eosinophils [#/volume] in Blood by Automated count 0.12 10^3/uL 0.00 - 0.70 [facility] Basophils [#/volume] in Blood by Automated count 0.02 10^3/uL 0.00 - 0.20 [facility] #IG 0.01 10^3/uL 0.00 - 0.10 [facility] #NRBC 0.00 10^3/uL 0.00 - 0.00 [facility] MANUAL DIFF NOT INDICATED [facility] RBC MORPH NOT INDICATED [facility] ID Date Data Source [id number] 03/31/2021 07:42:00 PM EST [facility] Name Value Range Interpretation Code Description Data Rachel rce(s) Supporting Document(s) COMPREHENSIVE METABOLIC PANEL [facility] COMPREHENSIVE METABOLIC PANEL Sodium [Moles/volume] in Serum or Plasma 140 mEq/L 134 - 153 [facility] Potassium [Moles/volume] in Serum or Plasma 4.0 mEq/L 3.6 - 5.0 [facility] Chloride [Moles/volume] in Serum or Plasma 101 mEq/L 98 - 107 [facility] Carbon dioxide, total [Moles/volume] in Serum or Plasma 27 MEQ/L 22 - 30 [facility] Glucose [Mass/volume] in Serum or Plasma 103 MG/DL 70 - 99 H [facility] BUN 7 MG/DL 7 - 21 [facility] al Creatinine [Mass/volume] in Serum or Plasma 0.6 MG/DL 0.7 - 1.5 L [facility] BUN/CREAT 12 8 - 27 [facility] Protein [Mass/volume] in Serum or Plasma 7.2 G/DL 6.3 - 8.2 [facility] Albumin [Mass/volume] in Serum or Plasma 4.8 G/DL 3.9 - 5.0 [facility] Globulin [Mass/volume] in Serum by calculation 2.4 GM/DL 2.4 - 3.2 [facility] A/G RATIO 2.0 0.8 - 2.0 [facility] Calcium [Mass/volume] in Serum or Plasma 9.9 MG/DL 8.4 - 10.2 [facility] Bilirubin.total [Mass/volume] in Serum or Plasma <0.7 MG/DL 0.2 - 1.3 [facility] Alkaline phosphatase [Enzymatic activity/volume] in Serum or Plasma 88 U/L 38 - 126 [facility] Aspartate aminotransferase [Enzymatic activity/volume] in Serum or Plasma 13 U/L 5 - 40 [facility] Alanine aminotransferase [Enzymatic activity/volume] in Seru m or Plasma 7 U/L 7 - 56 [facility] Anion gap 3 in Serum or Plasma 12.0 mmol/L 8.0 - 16.0 [facility] AGE 26 yrs [facility] NON-AA GFR >60 mL/min [facility] ital AFR AMER GFR >60 mL/min [facility] Male GFR In [...] >32 mL/min Normal ID Date Data Source [id number] 03/31/2021 07:36:00 PM [facility] Name Value Range Interpretation Code Description Data Rachel rce(s) Supporting Document(s) Lipase [Enzymatic activity/volume] in Serum or Plasma 26 U/L 13 - 60 [facility] ID Date Data Source [id number] 03/31/2021 07:31:00 PM [facility] Name Value Range Interpretation Code Description Data Rachel rce(s) Supporting Document(s) Lactate [Moles/volume] in Serum or Plasma 1.4 MMOL/L 0.2 - 2.2 [facility] ID Date Data Source [id number] 03/31/2021 07:30:00 PM [facility] Name Value Range Interpretation Code Description Data Rachel rce(s) Supporting Document(s) HCG SERUM QUAL NEGATIVE NORMAL: NEGATIVE [facility] HCG SERUM QL REENTER NEGATIVE NORMAL: NEGATIVE [facility] { KIT LOT # [id number] ){ KIT EXP DATE 06-10-22 ){ PROCEDURAL CONTROL VALID ) ID Date Data Source [id number] 03/31/2021 07:59:00 PM [facility] Name Value Range Interpretation Code Description Data Rachel rce(s) Supporting Document(s) UA REFLEX TO UA CULTURE [facility] UR[facility]YS[facility] yellow NORMAL: Yellow [facility] CLARITY hazy NORMAL: Clear [facility] Specific gravity of Urine by Test strip 1.020 1.001 - 1.030 [facility] pH 6 5 - 9 [facility] Glucose [Mass/volume] in Urine by Test strip NORM NORMAL: Negat [facility] Bilirubin.total [Presence] in Urine by Test strip NEG NORMAL: Negative [facility] Ketones [Presence] in Urine by Test strip 5 NORMAL: Negative A [facility] Protein [Mass/volume] in Urine by Test strip 15 NORMAL: Negat [facility] Nitrite [Presence] in Urine by Test strip NEG NORMAL: Negative [facility] BLOOD NEG NORMAL: Negative [facility] Leukocyte esterase [Presence] in Urine by Test strip NEG JENNY L: Negative [facility] Urobilinogen [Mass/volume] in Urine by Test strip NOR less nathalia n 1.0 mg/dL [facility] MICROSCOPIC See Below [facility] ital WBC 0 - 1 NORMAL: NONE SEEN [facility] EPITHELIAL MODERATE NORMAL: NONE SEEN A [facility] Mucus [Presence] in Urine sediment by Light microscopy 1+ NOR MAL: NONE SEEN [facility] ID Date Data Source [id number] 03/18/2021 08:23:00 AM EST [facility] Name Value Range Interpretation Code Description Data Rachel rce(s) Supporting Document(s) SARS coronavirus 2 RNA [Presence] in Res piratory specimen by JUAN with probe detection NEGATIVE [facility] This lab was ordered by [facility] a nd reported by [facility]. ID Date Data Source [id number] 03/16/2021 12:02:00 PM EDT [facility] [...] rce(s) Supporting Document(s) ID Date Data Source [id number] 03/16/2021 09:27:00 AM EDT [facility] ital TSYSORDER [id number] Name Value Range Interpretation Code Description Data Rachel rce(s) Supporting Document(s) URINE COLOR. DARK YELLOW [facility] URINE APPEARANCE CLEAR [facility] l URINE GLUCOSE (UA) NEGATIVE mg/dL NEGATIVE [facility] URINE BILIRUBIN NEGATIVE NEGATIVE [facility] URINE KETONE 5(TRACE) mg/dL NEGATIVE [facility] SPE[facility]IFIC GRAVITY,URINE >= 1.030 1.005-1.030 [facility] URINE BLOOD NEGATIVE NEGATIVE [facility] PH,URINE 5.5 5.0-9.0 [facility] URINE PROTEIN NEGATIVE mg/dL NEGATIVE [facility] tianna URINE UROBILINOGEN NORMAL(0.2-1) mg/dL 0-1 [facility] URINE NITRATE NEGATIVE NEGATIVE [facility] URINE LEUKOCYTE ESTERASE NEGATIVE NEGATIVE [facility] ID Date Data Source [id number] 03/16/2021 09:18:00 AM EDT [facility] l TSYSORDER [id number] Name Value Range Interpretation Code Description Data [facility] rce(s) Supporting Document(s) HCG URINE NEGATIVE NEGATIVE [facility] ID Date Data Source [id number] 03/16/2021 09:37:00 AM EDT [facility] l TSYSORDER [id number] Name Value Range Interpretation Code Description Data [facility] rce(s) Supporting Document(s) LACTIC ACID 0.6 mmol/L 0.4-2.0 [facility] ID Date Data Source [id number] 03/16/2021 09:37:00 AM EDT [facility] l TSYSORDER [id number] Name Value Range Interpretation Code Description Data Rachel rce(s) Supporting Document(s) GLUCOSE 92 mg/dL 74-106 [facility] BLOOD UREA NITROGEN 9 mg/dL 7-18 [facility] ital CREATININE 0.74 mg/dl 0.55-1.02 [facility] SODIUM 139 mmol/L 136-145 [facility] POTASSIUM 3.4 mmol/L 3.5-5.1 L [facility] CHLORIDE 100 mmol/L 98-107 [facility] CO2 28 mmol/L 21-32 [facility] CALCIUM 9.4 mg/dL 8.5-10.1 [facility] ANION GAP 11.0 mmol/L 5-12 [facility] GLOMERULAR FILTRATION RATE >90 mL/min [facility] GFR IS CALCULATED IN mL/min/1.73m2 JENNY L FUNCTION: >90MILDLY DECREASED: 60-89MILDY TO MODERATELY DECREASED: 45-59 MODERATELY TO SEVERELY DECREASED: 30-44SEVERELY DECREASED: 15-29RENAL FAILURE: <15 AST 12 U/L 15-37 L [facility] ALT 19 U/L 14-59 [facility] ALKALINE PHOSPHATASE 74 U/L 46-116 [facility] pital TOTAL BILIRUBIN 0.4 mg/dL 0.2-1.0 [facility] TOTAL PROTEIN 8.2 g/dL 6.4-8.2 [facility] ALBUMIN 4.4 gm/dL 3.4-5.0 [facility] ID Date Data Source [id number] 03/16/2021 09:22:00 AM EDT [facility] TSYSORDER [id number] Name Value Range Interpretation Code Description Data [facility](s) Supporting Document(s) WHITE BLOOD COUNT 7.8 K/mm3 4.0-10.0 [facility] al RED BLOOD COUNT 4.22 M/mm3 4.00-5.50 [facility] HEMOGLOBIN 13.6 gm/dL 12.0-16.0 [facility] HEMATOCRIT 40.1 % 36.0-48.8 [facility] MEAN CELL VOLUME 95.0 fl 80-96 [facility] MEAN CORPUSCULAR HEMOGLOBIN 32.2 pg 27.0-31.0 H [facility] MEAN CORPUSCULAR HGB CONC 33.9 g/dl 32.0-36.0 [facility] RED CELL DISTRIBUTION WIDTH 12.2 % 10.0-14.5 [facility] PLATELET COUNT 240 K/mm3 172-450 [facility] MEAN PLATELET VOLUME 10.4 fl 9.0-13.0 [facility] pital GRAN % 64.7 % 50-80.0 [facility] IG% 0.1 % 0.0-0.2 [facility] LYMPH % 26.1 % 25.0-50.0 [facility] MONO % 7.4 % 2.0-10.0 [facility] EOS % 1.3 % 0-5.0 [facility] BASO % 0.4 % 0.0-2.0 [facility] GRAN # 5.0 K/mm3 2.0-8.00 [facility] IG# 0.0 K/mm3 0.0-0.2 [facility] LYMPH # 2.0 K/mm3 1.0-5.0 [facility] MONO # 0.6 K/mm3 0.10-1.20 [facility] EOS # 0.1 K/mm3 0.0-0.5 [facility] BASO # 0.0 K/mm3 0.0-0.2 [facility] ID Date Data Source [id number] 02/06/2021 05:14:00 PM EDT [facility] Name Value Range Interpretation Code Description Data Rachel rce(s) Supporting Document(s) SARS coronavirus 2 RNA [Presence] in Res piratory specimen by UJAN with probe detection NEGATIVE [facility] This lab was ordered by [facility] a nd reported by [facility]. ID Date Data Source [id number] 10/29/2020 09:42:00 [place] [address] OPERATIVE SUMMARYNAME: JOCELINE Nguyễn DATE OF : 1995ATTENDING PHYS: SAGE GOMEZ DO DATE: 10/15/20 MR#: [id number] OF PROCEDURE: 10/15/2020HISTORY:Zaria is a 25-year-old female [...] was placed in the bladder for 1 [place] [address] OPERATIVE SUMMARYNAME: JOCELINE Nguyễn DATE OF : 1995ATTENDING PHYS: SAGE GOMEZ DO DATE: 10/15/20 MR#: [id number]. We then turned our attention to the [...] rce(s) Supporting Document(s) ID Date Data Source [id number] 12/20/2020 01:44:00 PM EDT [facility] ([facility]) Name Value Range Interpretation Code Description Data Rachel rce(s) Supporting Document(s) Pelvic Laboratory test result [facility] ([facility]) ID Date Data Source [id number] 12/19/2020 07:24:00 PM EDT [facility] [address] [place] [address] PHONE: [phone] FAX: [phone] Name .................. : JOCELINE DOANSLAVA Nguyễn Acct Number.................. : [id number] ROOM. ................. : TR-06 Number ................... : [id number] Stay type ............. : E/R Discharge Date......... ... : 12/19/20 Admit Date ......... : 12/19/20 Admit Phys .................... : YUE WILKINS Date of ....... : 1995 Family Phys ................... : JOCELYNE VEGA Phone .................. : [phone] Age ................................ : 25 Film# .................. .:[id number] Sex ................................. : F Unsigned transcriptions are preliminary reports and do not represent a medical or legal document TRANSVAGINAL(NON OB) [id number] COMPLETE:12/19/20 15:04 KNB [id number] Reason(s): left pelvic pain, 5.8 cm ovarian [...] 12/19/20 19:24, JWS Page 1 of 2 [facility] [address] [facility] [place] [address] PHONE: [phone] FAX: [phone] Name .................. : JOCELINE Nguyễn Acct Number.................. : [id number] ROOM. ................. : TR-06 MR Number ................... : [id number] Stay type ............. : E/R Discharge Date......... ... : 12/19/20 Admit Date ......... : 12/19/20 Admit Phys .................... : YUE WILKINS Date of ....... : 1995 Family Phys ................... : JOCELYNE VEGA Phone .................. : [phone] Age ................................ : 25 Film# .................. .:[id number] Sex ................................. : F Unsigned transcriptions are preliminary reports and do not represent a medical or legal document TRANSVAGINAL(NON OB) [id number] COMPLETE:12/19/20 15:04 KNB 76677 Reason(s): left pelvic pain, 5.8 cm ovarian cyst on CT 12-18-20 Transcribe Initials: RIANNA , Transcribe Date: 12/19/20 18:40, Dictation Date: Copy for: EMERGENCY DEPT via mode Copy for: 710 MED REC DISCHARGED Page 2 of 2 Name Value Range Interpretation Code Description Data Rachel rce(s) Supporting Document(s) ID Date Data Source [id number] 12/19/2020 01:35:00 PM EDT [facility] 1 OrderSheet [facility] Emergency Department [address] [place] [address] Phone #: ext- [phone] 12/19/2020 13:29 Patient: ZARIA CAR Sex: F : 1995 Age: 25yWEIGHT:72.5 kg (S)ALLERGIES: No Known Drug AllergyCHIEF COMPLAINT: pelvic painDIAGNOSIS: Cyst of ovaryLAB ORDERSOrder Description Priority Entered Acknowledged InitialedDIAGNOSTIC STUDY ORDERSOrder Description Priority Entered Acknowledged InitialedUS STAT 14:12/19/2020 14:45 Araceli,TRANSVAGINAL Tj Turner [place] R.N.(NON OB) MAzulDAzul;(Oxygen?(No)) Reason for Study: left pelvic pain, 5.8 cm ovarian cyst on CT 3-29-65OYHGOWEKHR/IV/DRIP/FLUID ORDERSOrder Description Pr iority Entered Acknowledged InitialedNS [...] rce(s) Supporting Document(s) ID Date Data Source [id number] 12/19/2020 01:35:00 PM EDT [facility] 1 Medication Reconciliation Report [facility] Emergency Department [address] [place] [address] Phone #: ext- [phone] 12/19/2020 13:29 Patient: ZARIA CAR Sex: F [...] permitted.Pharmacy - [facility] #[id number] - [address], [place] [id number]. . -- Tj Turner M.D. Name Value Range Interpretation Code Description Data Rachel cordero(s) Supporting Document(s) ID Date Data Source [id number] 12/19/2020 01:35:00 PM EDT [facility] 1 Medication Administration Record [facility] Emergency Department [address] [place] [address] Phone #: ext [phone] 12/19/2020 13:29 [id number] Sex[facility] F : 1995 Age: 25yWeight: 72.5 kgHeight/Length: 67 inBMI: 25.1ALLERGIES: No Known Drug Allergy Date/Time Medication Administered Medication OrderedStart NS [IV] NS IV 500 mL Bolus: : Bolus 14134:42 12/19/2020 Dose: IV Fluids mL, then 150 [...] rce(s) Supporting Document(s) ID Date Data Source [id number] 12/19/2020 01:35:00 PM EDT [facility] 1 General Instructions [facility] Emergency Department [address] [place] [address] Phone #: ext- [phone] 12/19/2020 13:29 [id number] Sex: F : 1995 Age: 25ySingle left ovarian cyst (complex, hemorrhagic vs. endometrioma). No torsion of ovary.INSTRUCTIONS Drink plenty of fluids. Do not smoke. No alcohol. (YOU HAVE AN APPOINTMENT TOMORROW AT [facility] AT 13:[address] JOHNSON).Warnings: Further evaluation is necessary in order to conduct further tests (METAL SPRAYING MACHINE OPERATOR ON 12/20 AT 13:05HRS). It is [...] permitted.Pharmacy - [facility] #[id number] - [address], [place] [id number]. FaxNumber: [phone].Follow-up:Return to the emergency department as needed. Follow up with an sewer and drain technician tomorrow as scheduled.Reason for referral: evaluation and treatment. Summary of care provided to patient via paper.Understanding of the discharge instructions verbalized by patient. Expected course of illness, dischargeinstructions, activity level, diet, prescriptions x1, follow-up appointment and risks and benefits of treatmentreviewed with patient and understanding verbalized. Agrees to plan of care.Follow-up with: [facility], , , [address] [place], [address] Follow up tomorrow as scheduled. Reason for referral: evaluation and treatment. Summary of careprovided to patient via paper. 2 General Instructions [facility] Emergency Department [address] [place] [address] Phone #: ext- [phone] 12/19/2020 13:29 Patient: ZARIA CAR Sex: Tio [...] pain, your healthcare provider may recommend using [id number]-vid-lvsofln pain medicine. If needed, your provide may [...] check if a cyst 3 General Instructions [facility] [facility] Emergency Department [address] [place] [address] Phone #: ext- [phone] 12/19/2020 13:29 Patient: [...] Weakness, dizziness, or fainting Abnormal vaginal bleeding [id number] [email or web address]. [address] [place] [address]. All rights reserved. This information is not intended as asubstitute for professional medical care. Always follow your healthcare professional's instructions. You have been given the following additional information: Ovaria n Cyst(Electronically signed by Tj Turner M.D. 12/19/2020 16:39) Name Value Range Interpretation Code Description Data Rachel rce(s) Supporting Document(s) ID Date Data Source [id number] 12/19/2020 01:35:00 PM EDT [facility] 1 Clinical Report - Nurses [facility] Emergency Department [address] [place] [address] Phone #: ext- [phone] 12/19/2020 13:29 Patient: ZARIA CAR Sex: F : 1995 Age: 25yTRIAGEArrived by private vehicle. Historian: patient. Accompanied by family. ( presents with c/o abd. pain, ptwas just seen here lastnight and instructed to call PRODUCTION ASSEMBLER and to come back if no relief with meds. calledclinic and soonest appt 01/05).Triage time: 13:40 12/19/2020. Acuity: LEVEL 4.Chief Complaint: ABDOMINAL PAIN.Alert. No acute distress.This started yesterday.Treatment PROFILING MACHINE SETUP OPERATOR:Took Tylenol and ibuprofen. Seen within the [...] RN.ADDITIONAL SURGERIES:Cholecystectomy.. 2 Clinical Report - Nurses [facility] Emergency Department [address] [place] [address] Phone #: ext- [phone] 12/19/2020 13:29 Patient: AZRIA CAR Sex: F : 1995 Age: 25y [...] verified and 3 Clinical Report - Nurses [facility] Emergency Department [address] [place] [address] Phone #: ext- [phone] 12/19/2020 13:29 Patient: [...] Charles R.N. 4 Clinical Report - Nurses [facility] Emergency Department [address] [place] [address] Phone #: ext- [phone] 12/19/2020 13:29 [id number] Sex[facility] F : 1995 Age: 25y Condition at departure: improved. No learning barriers present. Reviewed warnings. Reviewed medication(s). Treatments reviewed. Reviewed referrals. Written instructions provided in Haitian. The patient was discharged by the physician. She was discharged home. She left ambulatory and via private vehicle. Waiter/Waitress Room Service driving. --16:09 12/19/20 [place] Charles R.N. 16:09 12/19/20. Pain level now: 0/10. --16:10 12/19/20 Georgia Charles R.N.Locked/Released at 12/19/2020 16:10 by Georgia Charles R.N. Name Value Range Interpretation Code Description Data Rachel rce(s) Supporting Document(s) ID Date Data Source [id number] 12/19/2020 01:35:00 PM EDT [facility] 1 Clinical Report - Physicians/Mid Levels [facility] Emergency Department [address] [place] [address] Phone #: ext- [phone] 12/19/2020 13:29 Patient: [...] done, was told to f/u w METAL SPRAYING MACHINE OPERATOR clinic, called today and couldn't get [...] Allergies: 2 Clinical Report - Physicians/Mid Levels [facility] Emergency Department [address] [place] [address] Phone #: ext- [phone] 12/19/2020 13:29 Patient: ZARIA CAR Sex: F [...] we got her an appt w METAL SPRAYING MACHINE OPERATOR in [place] tomorrow at 13:05 hrs; d/c instructions given, [...] controlled; 3 Clinical Report - Physicians/Mid Levels [facility] Emergency Department [address] [place] [address] Phone #: ext- [phone] 12/19/2020 13:29 Patient: [...] alcohol. (YOU HAVE AN APPOINTMENT TOMORROW AT [facility] AT 13:[address] JOHNSON). Warnings: Further evaluation is necessary in order to conduct further tests (METAL SPRAYING MACHINE OPERATOR ON 12/20 AT 13:05 HRS). It [...] tablet. Refills: 0. Substitution permitted. Pharmacy - [id number] - [address], [place] [id number]. . Follow-up: Return to the emergency department as needed. Follow up with an sewer and drain technician tomorrow as scheduled. Reason for referral: evaluation and treatment. Summary of care provided to patient via paper. Understanding of the discharge instructions verbalized by patient. Expected course of illness, discharge instructions, activity level, diet, prescriptions x1, follow-up appointment and risks and benefits of treatment reviewed with patient and understanding verbalized. Agrees to plan of care. Follow-up with: [facility], , , [address] [place] [address], [facility] Follow up tomorrow as scheduled. Reason for referral: evaluation and treatment. Summary of care provided to patient via paper. 4 Clinical Report - Physicians/Mid Levels [facility] Emergency Department [address] [place] [address] Phone #: ext- [phone] 12/19/2020 13:29 Patient: ZARIA CAR Sex: F : 1995 Age: 25y(Electronically signed by Tj Turner M.D. 12/19/2020 16:39) Name Value Range Interpretation Code Description Data Rachel rce(s) Supporting Document(s) ID Date Data Source [id number] 12/19/2020 09:06:00 AM EDT [facility] [address] [place] [address] PHONE: [phone] FAX: [phone] Name .................. : JOCELINE GARCIA Chan Acct Number.................. : [id number] ROOM. ................. : [facility] Number ................... : [id number] Stay type ............. : E/R Discharge Date......... ... : 12/19/20 Admit Date ......... : 12/18/20 Admit Phys .................... : COONEYNORM Date of ....... : 1995 Family Phys ................... : JOCELYNE VEGA Phone .................. : [phone] Age ................................ : 25 Film# .................. .:[id number] Sex ................................. : F Unsigned transcriptions are preliminary reports and do not represent a medical or legal document CT ABD & PELVIS W/ IV ONLY [id number] COMPLETE:12/19/20 04:47 ARLENE [id number] Reason(s): Abdominal Pain CT ABDOMEN AND PELVIS [...] the lesion. No Page 1 of 2 [place] [address] PHONE: [phone] FAX: [phone] Name .................. : JOCELINE GARCIA Chan Acct Number.................. : [id number] ROOM. ................. : [facility]34 Number ................... : [id number] Stay type ............. : E/R Discharge Date......... ... : 12/19/20 Admit Date ......... : 12/18/20 Admit Phys .................... : ADDISON Date of ....... : Family Phys ................... : JOCELYNE VEGA Phone .................. : [phone] Age ................................ : 25 Film# .................. .:[id number] Sex ................................. : F Unsigned transcriptions are preliminary reports and do not represent a medical or legal document CT ABD & PELVIS W/ IV ONLY [id number] COMPLETE:12/19/20 04:47 ARLENE 29060 Reason(s): Abdominal Pain nodularity. Moderately prominent enhancing [...] rce(s) Supporting Document(s) ID Date Data Source [id number] 12/19/2020 09:06:00 AM EDT [facility] [address] [place] [address] PHONE: [phone] FAX: [phone] Name .................. : JOCELINE Nguyễn Acct Number.................. : [id number] ROOM. ................. : [facility]-34 MR Number ................... : [id number] Stay type ............. : E/R Discharge Date......... ... : 12/19/20 Admit Date ......... : 12/18/20 Admit Phys .................... : COONEYNORM Date of ....... : 1995 Family Phys ................... : JOCELYNE [employer] Phone .................. : [phone] Age ................................ : 25 Film# .................. .:[id number] Sex ................................. : F Unsigned transcriptions are preliminary reports and do not represent a medical or legal document ABDOMEN MULTIPLE VIEW [id number] COMPLETE:12/19/20 04:47 ARLENE 44279 Reason(s): Abdominal Pain ABDOMINAL RADIOGRAPH SUPINE AND [...] 08:53, Dictation Date: Page 1 of 2 [facility] [address] [place] [address] PHONE: [phone] FAX: [phone] Name .................. : JOCELINE Nguyễn Acct Number.................. : [id number] ROOM. ................. : [facility] Number ................... : [id number] Stay type ............. : E/R Discharge Date......... ... : 12/19/20 Admit Date ......... : 12/18/20 Admit Phys .................... : COONEYNORM Date of ....... : 1995 Family Phys ................... : JOCELYNE VEGA Phone .................. : [phone] Age ................................ : 25 Film# .................. .:[id number] Sex ................................. : F Unsigned transcriptions are preliminary reports and do not represent a medical or legal document ABDOMEN MULTIPLE VIEW 38064 COMPLETE:12/19/20 04:47 ARLENE 51035 Reason(s): Abdominal Pain Copy for: EMERGENCY DEPT via modem Copy for: 710 MED REC DISCHARGED Page 2 of 2 Name Value Range Interpretation Code Description Data Rachel rce(s) Supporting Document(s) ID Date Data Source [id number] 12/18/2020 10:14:00 PM EDT [facility] 1 OrderSheet [facility] Emergency Department [address] [place] [address] Phone #: ext- [phone] 12/18/2020 22:21 Patient: ZARIA CAR Sex: F : 1995 Age: 25yWEIGHT:72.5 kg HEIGHT:67 inches BMI:25.1ALLERGIES: No Known Drug AllergyCHIEF COMPLAINT: abdominal painDIAGNOSIS: Cyst of ovaryLAB ORDERSOrder Description Priority Entered Acknowledged InitialedUrinalysis (Clean STAT 22:49 12/18/2020 Ack'd: 22:50 22:51 Lynn Guerrero [facility]) Jenny Akers MD; Vania GuerreroCG Urine [...] Jenny Akers MD; Vania Guerrero 2 OrderSheet [facility] Emergency Department [address] [place] [address] Phone #: ext- [phone] 12/18/2020 22:21 Patient: [...] rce(s) Supporting Document(s) ID Date Data Source [id number] 12/18/2020 10:14:00 PM EDT [facility] 1 Medication Reconciliation Report [facility] Emergency Department [address] [place] [address] Phone #: ext- [phone] 12/18/2020 22:21 Patient: [...] rce(s) Supporting Document(s) ID Date Data Source [id number] 12/18/2020 10:14:00 PM EDT [facility] 1 Medication Administration Record [facility] Emergency Department [address] [place] [address] Phone #: [phone]- [phone] 12/18/2020 22:21 Patient: ZARIA CAR Sex: F : 1995 Age: 25yWeight: 72.5 kgHeight/Length: 67 inBMI: 25.1ALLERGIES: No Known Drug Allergy Date/Time Medication Administered Medication OrderedStart IV NS IV NS 1000 mL Bolus : Bolus [id number] 12/18/2020 Dose: IV Fluids mL (X1)Vania Guerrero, [...] rce(s) Supporting Document(s) ID Date Data Source [id number] 12/18/2020 10:14:00 PM EDT [facility] 1 General Instructions [facility] Emergency Department [address] [place] [address] Phone #: ext- [phone] 12/18/2020 22:21 Patient: ZARIA CAR Sex: F : 1995 Age: 25ySingle left ovarian cyst.pelvic congestion.INSTRUCTIONSNo strenuous activity. Do not work for three days.Drink plenty of fluids.(Please also follow up with your primary care physician. return if worse or any new symptoms. taketylenol andmotrin for pain. please call your head filter tank tender helper and be seen in the next 2 [...] patient. ADDITIONAL INFORMATIONOvarian Cysts 2 General Instructions [facility] Emergency Department [address] [place] [address] Phone #: ext- [phone] 12/18/2020 22:21 Patient: [...] pain, your healthcare provider may recommend using [id number] pain medicine. If needed, your provide may [...] provider, or as advised. 3 General Instructions [facility] Emergency Department [address] [place] [address] Phone #: [phone]- [phone] 12/18/2020 22:21 Patient: ZARIA CAR Sex: F : 1995 Age: 25yWhen to seek medical adviceCall your healthcare provider right away if any of these occur: Pain worsens or fails to get better with home treatment Fever of 100.4F (38C) or higher (or other fever amount directed by your healthcare provider) Nausea and vomiting Weakness, dizziness, or fainting Abnormal vaginal bleeding [id number] [employer]. [address] [place] [address]. All rights reserved. This information is not intended as asubstitute for professional medical care. Always follow your healthcare professional's instructions. You have been given the following additional information: Ovarian Cyst No strenuous activity. Do not work for three days.(Electronically signed by Jenny Akers MD 12/19/2020 03:56) Name Value Range Interpretation Code Description Data Rachel rce(s) Supporting Document(s) ID Date Data Source [id number] 12/18/2020 10:14:00 PM EDT [facility] 1 Clinical Report - Nurses [facility] Emergency Department [address] [place] [address] Phone #: ext- [phone] 12/18/2020 22:21 Patient: ZARIA CAR Sex: F [...] dinner (Chicken tenders and macaroni and cheese).Treatment PROFILING MACHINE SETUP OPERATOR:(Tylenol-1500). --22:47 12/18/20 Rosie Guerrero2:42 12/18/20. BP: [...] Vania Guerrero. 2 Clinical Report - Nurses [facility] Emergency Department [address] [place] [address] Phone #: ext- [phone] 12/18/2020 22:21 Patient: ZARIA CAR Sex: F [...] PROGRESS NOTES 3 Clinical Report - Nurses [facility] Emergency Department [address] [place] [address] Phone #: ext- [phone] 12/18/2020 22:21 Patient: ZARIA CAR Sex: F [...] reaction and precautions.Verbalizes understanding. --23:43 12/18/20 Tanja uGerreron23:44 12/18/2020 Zofran (Ondansetron HCl) IVP 4 mg [...] 12/19/20Vania Guerrero 4 Clinical Report - Nurses [facility] Emergency Department [address] [place] [address] Phone #: ext- [phone] 12/18/2020 22:21 Patient: [...] Patient verbalized understanding. Written instructions provided in Haitian. The patient was discharged by the physician. [...] rce(s) Supporting Document(s) ID Date Data Source [id number] 12/18/2020 10:14:00 PM EDT [facility] 1 Clinical Report - Physicians/Mid Levels [facility] Emergency Department [address] [place] [address] Phone #: ext- [phone] 12/18/2020 22:21 Patient: [...] None. Allergies: 2 Clinical Report - Physicians/[facility] Emergency Department [address] [place] [address] Phone #: ext- [phone] 12/18/2020 22:21 Patient: ZARIA CAR Sex: F [...] 2.5) 3 Clinical Report - Physicians/Mid Levels [facility] Emergency Department [address] [place] [address] Phone #: [phone] ext- [phone] 12/18/2020 22:21 Patient: ZARIA CAR Sex: F [...] Male GFR Interprentation 20-49 yrs >60 mL/min Qydipt89-94 yrs >56 mL/min Normal 60-69 yrs >49 mL/min Normal 70-79yrs>42 mL/min Normal 80 and above >35 mL/min Normal Female GFRInterpretation 20-39 yrs >60 mL/min Normal 40-49 yrs >58 mL/minNormal 50-59 yrs >51 mL/min Normal 60-69 yrs >45 mL/min Twnspe10-45 yrs >39 mL/min Normal 80 and above >32 mL/min NormalLactic Acid: (ABILIO: 12/18/2020 23:35) ( NcgRcvd 12/18/2020 23:50) Final results Test Result Flag Units (Reference) LACTIC ACID 1.3 MMOL/L (0.2 - 2.2)Lipase: (ABILIO: 12/18/2020 23:35) ( NcgRcvd 12/19/2020 00:07) Final results Test Result Flag Units (Reference) LIPASE 31 U/L (13 - 60)Urinalysis: (ABILIO: 12/18/2020 22:51) ( MsgRcvd 12/18/2020 23:10) Final results Test Result Flag Units (Reference) URINALYSIS URINALYSIS 4 Clinical Report - Physicians/Mid Levels [facility] Emergency Department [address] [place] [address] Phone #: ext- [phone] 12/18/2020 22:21 Patient: [...] NEGATIVE (NORMAL: NEGAT { KIT LOT # [id number] ){ KIT EXP DATE 05.10.22 ){ PROCEDURAL [...] 5.2x3.5cm. I encouraged her to f/u with wafer fabricator this week and to return if worseor any new symptoms. Patient/family counseled. Disposition: Discharged. Condition: good and stable.CLINICAL IMPRESSION Single left ovarian cyst. pelvic congestion.INSTRUCTIONS 5 Clinical Report - Physicians/Mid Levels [facility] Emergency Department [address] [place] [address] Phone #: ext- [phone] 12/18/2020 22:21 [id number] Sex[facility] F : 1995 Age: 25y No strenuous activity. Do not work for three days. Drink plenty of fluids. (Please also follow up with your primary care physician. return if worse or any new symptoms. take tylenol andmotrin for pain. please call your head filter tank tender helper and be seen in the next 2 [...] rce(s) Supporting Document(s) ID Date Data Source [id number] 12/19/2020 12:07:00 AM EDT [facility] Name Value Range Interpretation Code Description Data Rachel rce(s) Supporting Document(s) Lipase [Enzymatic activity/volume] in Serum or Plasma 31 U/L 13 - 60 [facility] ID Date Data Source [id number] 12/19/2020 12:07:00 AM EDT [facility] Name Value Range Interpretation Code Description Data Rachel rce(s) Supporting Document(s) COMPREHENSIVE METABOLIC PANEL [facility] COMPREHENSIVE METABOLIC PANEL Sodium [Moles/volume] in Serum or Plasma 138 mEq/L 134 - 153 [facility] Potassium [Moles/volume] in Serum or Plasma 3.8 mEq/L 3.6 - 5.0 [facility] Chloride [Moles/volume] in Serum or Plasma 103 mEq/L 98 - 107 [facility] Carbon dioxide, total [Moles/volume] in Serum or Plasma 27 MEQ/L 22 - 30 [facility] Glucose [Mass/volume] in Serum or Plasma 85 MG/DL 70 - 99 [facility] BUN 10 MG/DL 7 - 21 [facility] Creatinine [Mass/volume] in Serum or Plasma 0.6 MG/DL 0.7 - 1.5 L [facility] BUN/CREAT 17 8 - 27 [facility] al Protein [Mass/volume] in Serum or Plasma 6.4 G/DL 6.3 - 8.2 [facility] Albumin [Mass/volume] in Serum or Plasma 4.1 G/DL 3.9 - 5.0 [facility] Globulin [Mass/volume] in Serum by calculation 2.3 GM/DL 2.4 - 3.2 L [facility] A/G RATIO 1.8 0.8 - 2.0 [facility] Calcium [Mass/volume] in Serum or Plasma 9.7 MG/DL 8.4 - 10.2 [facility] Bilirubin.total [Mass/volume] in Serum or Plasma <0.7 MG/DL 0.2 - 1.3 [facility] Alkaline phosphatase [Enzymatic activity/volume] in Serum or Plasma 83 U/L 38 - 126 [facility] Aspartate aminotransferase [Enzymatic activity/volume] in Serum or Plasma 13 U/L 5 - 40 [facility] Alanine aminotransferase [Enzymatic activity/volume] in Seru m or Plasma 7 U/L 7 - 56 [facility] Anion gap 3 in Serum or Plasma 8.0 mmol/L 8.0 - 16.0 [facility] AGE [address] [facility] al NON-AA GFR >60 mL/min [facility] ital AFR AMER GFR >60 mL/min [facility] Ho spital Male GFR In [...] >32 mL/min Normal ID Date Data Source [id number] 12/18/2020 11:50:00 PM EDT [facility] Name Value Range Interpretation Code Description Data Rachel rce(s) Supporting Document(s) Lactate [Moles/volume] in Serum or Plasma 1.3 MMOL/L 0.2 - 2.2 [facility] ID Date Data Source [id number] 12/18/2020 11:44:00 PM EDT [facility] Name Value Range Interpretation Code Description Data Rachel rce(s) Supporting Document(s) CBC W/AUTOMATED DIFF [facility] COMPLETE BLOOD COUNT Leukocytes [#/volume] in Blood by Automated count 8.3 10^3/uL 4.2 - 1 1.0 [facility] Erythrocytes [#/volume] in Blood by Automated count 3.98 10^6/uL 4. 20 - 5.40 L [facility] Hemoglobin [Mass/volume] in Blood 13.0 g/dL 12.0 - 16.0 [facility] Hematocrit [Volume Fraction] of Blood by Automated count 38.8 % 3 7.0 - 47.0 [facility] Erythrocyte mean corpuscular volume [Entitic volume] by Auto mated count 97.5 fL 81.0 - 101 [facility] Erythrocyte mean corpuscular hemoglobin [Entitic mass] by Automated count 32.7 pg 27.0 - 34.0 [facility] Erythrocyte mean corpuscular hemoglobin concentration [Mass/volume] by Automated count 33.5 g/dL 31.0 - 36.0 [facility] Erythrocyte distribution width [Ratio] by Automated count 13.2 % 11.5 - 14.5 [facility] Platelets [#/volume] in Blood by Automated count 203 10^3/uL 150 - 45 0 [facility] Platelet mean volume [Entitic volume] in Blood by Automated count 10.8 fL 7.4 - 10.4 H [facility] Neutrophils/100 leukocytes in Blood by Automated count 59.2 % 37. 0 - 80.0 [facility] Lymphocytes/100 leukocytes in Blood by Manual count 29.7 % 25.0 - 40.0 [facility] Monocytes/100 leukocytes in Blood by Automated count 8.2 % 3.0 - 8.0 H [facility] Eosinophils/100 leukocytes in Blood by Automated count 2.1 % 0.0 - 7.0 [facility] Basophils/100 leukocytes in Blood by Automated count 0.4 % 0.0 - 2.5 [facility] %IG 0.4 % 0.0 - 0.0 H [facility] al %NRBC 0.0 % 0.0 - 0.0 [facility] al Neutrophils [#/volume] in Blood by Automated count 4.89 10^3/uL 2.00 - 6.90 [facility] Lymphocytes [#/volume] in Blood by Automated count 2.45 10^3/uL 0.60 - 3.40 [facility] Monocytes [#/volume] in Blood by Automated count 0.68 10^3/uL 0.00 - 0.90 [facility] Eosinophils [#/volume] in Blood by Automated count 0.17 10^3/uL 0.00 - 0.70 [facility] Basophils [#/volume] in Blood by Automated count 0.03 10^3/uL 0.00 - 0.20 [facility] #IG 0.03 10^3/uL 0.00 - 0.10 [facility] ospital #NRBC 0.00 10^3/uL 0.00 - 0.00 [facility] ospital MANUAL DIFF NOT INDICATED [facility] RBC MORPH NOT INDICATED [facility] ID Date Data Source [id number] 12/18/2020 11:10:00 PM EDT [facility] Name Value Range Interpretation Code Description Data Rachel rce(s) Supporting Document(s) HCG URINE QUAL NEGATIVE NORMAL: NEGATIVE [facility] HCG URINE QL REENTER NEGATIVE NORMAL: NEGATIVE [facility] { KIT LOT # [id number] ){ KIT EXP DATE 05.10.22 ){ PROCEDURAL CONTROL VALID ) ID Date Data Source [id number] 12/18/2020 11:09:00 PM EDT [facility] Name Value Range Interpretation Code Description Data Rachel rce(s) Supporting Document(s) [facility] yellow NORMAL: Yellow [facility]sp[facility] CLARITY turbid NORMAL: Clear [facility] Specific gravity of Urine by Test strip 1.020 1.001 - 1.030 [facility] pH 6.5 5 - 9 [facility] Glucose [Mass/volume] in Urine by Test strip NORM NORMAL: Negat [facility] Bilirubin.total [Presence] in Urine by Test strip NEG NORMAL: Negative [facility] Ketones [Presence] in Urine by Test strip 5 NORMAL: Negative [facility] Protein [Mass/volume] in Urine by Test strip NEG NORMAL: Negat [facility] Nitrite [Presence] in Urine by Test strip NEG NORMAL: Negative [facility] BLOOD NEG NORMAL: Negative [facility] LEUK EST 25 NORMAL: Negative [facility] Urobilinogen [Mass/volume] in Urine by Test strip NOR less nathalia n 1.0 mg/dL [facility] MICROSCOPIC See Below [facility] ital WBC 1 - 3 NORMAL: NONE SEEN [facility] Erythrocytes [#/volume] in Urine by Test strip 0 - 1 NORMAL: NON E SEEN [facility] EPITHELIAL MANY NORMAL: NONE SEEN [facility] Bacteria [Presence] in Urine sediment by Light microscopy 1+ SMALL NORMAL: NONE SEEN [facility] Mucus [Presence] in Urine sediment by Light microscopy 1+ NOR MAL: NONE SEEN [facility] Amorphous sediment [Presence] in Urine sediment by Light dany roscopy 1+ NORMAL: NONE SEEN [facility] ID Date Data Source [id number] 12/02/2020 03:34:00 PM EDT [facility] 1 OrderSheet [facility] Emergency Department [address] [place] [address] Phone #: ext- [phone] 12/02/2020 15:29 Patient: ZARIA CAR Sex: F [...] Kristopher Robledo RN (18:51 12/02/2020)] 2 OrderSheet [facility] Emergency Department [address] [place] [address] Phone #: ext- [phone] 12/02/2020 15:29 Patient: ZARIA CAR Sex: F : 1995 Age: 25y[Electronically signed by Bridger Serra P.A.-C (20:16 12/02/2020)][Electronically locked by Kristopher Robledo RN (18:51 12/02/2020)] Name Value Range Interpretation Code Description Data Rachel rce(s) Supporting Document(s) ID Date Data Source [id number] 12/02/2020 03:34:00 PM EDT [facility] 1 Medication Reconciliation Report [facility] Emergency Department [address] [place] [address] Phone #: ext- [phone] 12/02/2020 15:29 Patient: ZARIA CAR Sex: F [...] Dispense 21 capsule.Refills: 0. Substitution permitted.Pharmacy - [facility] [id number] [facility] [employer] - [id number] [place] [address] ; [place] [address]. .gabapentin 100 mg capsule Take 1 capsule three times a day for 3 days -- Dispense 9 capsule. Refills:0. Substitution permitted.Pharmacy - [facility] [address] [facility] [employer] - [address] [facility] ; [place] [address]. . -- Bridger Serra P.A.-C Name Value Range Interpretation Code Description Data Rachel rce(s) Supporting Document(s) ID Date Data Source [id number] 12/02/2020 03:34:00 PM EDT [place] [address] Medication Administration Record [facility] Emergency Department [address] [place] [address] Phone #: ext- [phone] 12/02/2020 15:29 Patient: ZARIA CAR Sex: F [...] rce(s) Supporting Document(s) ID Date Data Source [id number] 12/02/2020 03:34:00 PM EDT [facility] 1 General Instructions [facility] Emergency Department [address] [place] [address] Phone #: ext- [phone] 12/02/2020 15:29 Patient: ZARIA CAR Sex: F [...] Dispense 21 capsule.Refills: 0. Substitution permitted.Pharmacy - [facility] [place] [address] ; [place] [address]. .gabapentin 100 mg capsu le Take 1 capsule three times a day for 3 days -- Dispense 9 capsule. Refills:0. Substitution permitted.Pharmacy - [facility] [place] [address] ; [place] [address]. .Follow-up:Follow up with your healthcare provider in about two days if not better. Call for an appointment.Understanding of the discharge instructions verbalized by patient. ADDITIONAL INFORMATIONAbrasions 2 General Instructions [facility] Emergency Department [address] [place] [address] Phone #: ext- [phone] 12/02/2020 15:29 Patient: ZARIA CAR Sex: F [...] drainage from the wound 3 General Instructions [facility] Emergency Department [address] [place] [address] Phone #: ext- [phone] 12/02/2020 15:29 Patient: ZARIA CAR Sex: F : 1995 Age: 25y Bleeding from the wound that does not stop after a few minutes of steady, firm pressure Decreased ability to move any body part near the wound [employer]. [address] [place] [address]. All rights reserved. This information is not [...] bandage Red streaks surround the wound area [id number] [employer]. [address] [place] [address]. All rights reserved. This information is not intended as asubstitute for professional medical care. Always follow your healthcare professional's instructions. You have been given the following additional information: Abrasions 4 General Instructions [facility] Emergency Department [address] [place] [address] Phone #: ext- [phone] 12/02/2020 15:29 Patient: ZARIA CAR Sex: F : 1995 Age: 25yDressing ChangeYou may walk and bear weight as tolerated. Do not work for five days (To facilitate recovery).(Electronically signed by Bridger Serra P.A.-C 12/02/2020 20:16) Name Value Range Interpretation Code Description Data Rachel rce(s) Supporting Document(s) ID Date Data Source [id number] 12/02/2020 03:34:00 PM EDT [facility] 1 Clinical Report - Nurses [facility] Emergency Department [address] [place] [address] Phone #: ext- [phone] 12/02/2020 15:29 Patient: ZARIA CAR Sex: F : 1995 Age: 25yTRIAGEArrived by private vehicle. Historian: patient.Acuity: LEVEL 4.Chief Complaint: INJURY TO THE RIGHT FOOT.Alert. No acute distress.Occurred 03:33 12/02/2020. The patient sustained a laceration (razor). ( PT reports this morning [id number] am she stepped out of the shower unto a blake razor blade. She reports a moderate amount ofbleeding between her great and 2nd toe on her right foot. She is unsure of her last tetanus shot.).Treatment PROFILING MACHINE SETUP OPERATOR:None.SEPSIS SCREEN: SIRS SCREEN NEGATIVE. SEPSIS SCREEN [...] SURGERIES:Cholecystectomy..Exploratory laparotomy. 2 Clinical Report - Nurses [facility] Emergency Department [address] [place] [address] Phone #: ext- [phone] 12/02/2020 15:29 [id number] Sex[facility] F : 1995 Age: 25y Salpingectomy. [...] on patient. --15:39 12/02/20 Sharron Jimenez R.N.PHYSICAL [id number] 12/02/20. Ambulatory to room.GENERAL / NEURO / [...] Robledo RN 3 Clinical Report - Nurses [facility] Emergency Department [address] [place] [address] Phone #: ext- [phone] 12/02/2020 15:29 Patient: ZARIA CAR Sex: F : 1995 Age: 25y 16:52 12/02/20. BP: 130/82. MAP: 98. HR: 75. RR: 16. O2 saturation: 100%. Temp: 98.7 F (oral). Pain level now: 10/18. --17:00 12/02/20 Kristopher Robledo RN 17:08 12/02/2020 TDAP IM 0.5 mL given(Lot#: [id number], expiration date: 08/14/2022, Campaign Management Senior Manager: Health 123). Given in the left deltoid. Allergies verified [...] antibiotic ointment (bacitracin). Secured with rosy bandage. (6395). --18:10 12/02/20 Kristopher Robledo RN 18:21 12/02/2020 [...] Patient verbalized understanding. Written instructions provided in Haitian. The patient was discharged by the physician ssn/ssbn assistant navigator. She was discharged home. She left ambulatory and via private vehicle. Patient driving. --18:51 12/02/20 Kristopher Robledo RN.Locked/Released at 12/02/2020 18:51 by Kristopher Robledo RN Name Value Range Interpretation Code Description Data Rachel rce(s) Supporting Document(s) ID Date Data Source [id number] 12/02/2020 03:34:00 PM EDT [facility] 1 Clinical Report - Physicians/Mid Levels [facility] Emergency Department [address] [place] [address] Phone #: ext- [phone] 12/02/2020 15:29 Patient: ZARIA CAR Sex: F [...] complaints 2 Clinical Report - Physicians/Mid Levels [facility] Emergency Department [address] [place] [address] Phone #: ext- [phone] 12/02/2020 15:29 [id number] Sex: F : 1995 Age: 25y or [...] restrictions. 3 Clinical Report - Physicians/Mid Levels [facility] Emergency Department [address] [place] [address] Phone #: ext- [phone] 12/02/2020 15:29 Patient: ZARIA CAR Sex: F [...] capsule. Refills: 0. Substitution permitted. Pharmacy - [facility] [place] [address] ; [place] [address]. . gabapentin 100 mg capsule Take 1 capsule three times a day for 3 days -- Dispense 9 capsule. Refills: 0. Substitution permitted. Pharmacy - [facility] [place] [address] ; [place] [address]. . Follow-up: Follow up with your healthcare provider in about two days if not better. Call for an appointment. Understanding of the discharge instructions verbalized by patient.(Electronically signed by Bridger Serra P.A.-C 12/02/2020 20:16) Name Value Range Interpretation Code Description Data Rachel rce(s) Supporting Document(s) ID Date Data Source [id number] 10/31/2020 01:46:00 PM EDT [facility] Patient: ZARIA CARo chan Report - Physicians/Mid Levels [facility] [id number] [place] [address] [phone], [facility]Registrabay[facility] Date/Time: 10/17/2020 22:30 Weight:72.5 kg. Height/Length:66 inches. [...] 10/18/2020 00:46) Addenda for ZARIA CAR VisitID: [id number] Date: 10/17/2020 10/31/2020 13:31Lab results reviewed. Communicated information to patient. Script for Flagyl 500mg po BID for 5 days called to [facility] in [place]. Pt aware that script called in. (Electronically signed by Maryuri Dasilva R.N. - 10/31/2020 13:31) Name Value Range Interpretation Code Description Data Rachel rce(s) Supporting Document(s) ID Date Data Source [id number] 10/18/2020 07:17:00 AM EDT [facility] [...] Value Range Interpretation Code Description Data [facility](s) Supporting Document(s) ID Date Data Source [id number] 10/18/2020 03:55:00 AM EDT [facility] Patient: ZARIA CAR Observatio n Report - Physicians/Mid Levels [facility].VisitID: [id number] [place] [address] [phone], FRegistration Date/Time: 10/17/2020 22:30 Weight:72.5 kg. Height/Length:66 [...] rce(s) Supporting Document(s) ID Date Data Source [id number] 10/20/2020 06:10:00 AM EDT [facility] Name Value Range Interpretation Code Description Data Rachel rce(s) Supporting Document(s) CHLAMYDIA TRACHOMATIS, JUAN Negative Negative [facility] NEISSERIA GONORRHOEAE, JUAN Negative Negative [facility] Performed at: [facility] [place], [place] [id number] Director: Maaglie Foster MD, Phone: [phone] ID Date Data Source [id number] 10/19/2020 04:10:00 PM EDT [facility] Name Value Range Interpretation Code Description Data Rachel rce(s) Supporting Document(s) MAREN SPECIES Negative Negative [facility] GARDNERELLA VAGINALIS Positive Negative [facility] spital TRICHOMONAS VAGINALIS Negative Negative [facility] Performed at: [facility] [address] [place], [place] [id number] Director: Magalie Foster MD, Phone: [phone] ID Date Data Source [id number] 10/19/2020 04:05:00 PM EDT [facility] Name Value Range Interpretation Code Description Data Rachel rce(s) Supporting Document(s) Maren species Negative Negative [facility] Gardnerella vaginalis Positive Negative Abnormal ( applies to non-numeric results) [facility] Trichomonas vaginalis Negative Negative [facility] ID Date Data Source [id number] 10/20/2020 06:05:00 AM EDT [facility] Name Value Range Interpretation Code Description Data Rachel rce(s) Supporting Document(s) Chlamydia/GC [facility] TESTS RESULT FLAG UNI TS REF RANGE LAB C trachomatis, JUAN Negative (Negative) 01N gonorrhoeae, JUAN Negative (Negative) 01 FLAG LEGEND: L-Low Normal,H-High Normal,LL-Alert Low,HH-Alert High <-Panic Low,>-Panic High,A-Abnormal,AA-Critical Abnormal Performed at:01 RN [facility] [address] [address] Magalie Foster MD, ID Date Data Source [id number] 10/17/2020 11:51:00 PM EDT [facility] TSYSORDER [id number] Name Value Range Interpretation Code Description Data [facility](s) Supporting Document(s) GLUCOSE 85 mg/dL 74-106 [facility] BLOOD UREA NITROGEN 8 mg/dL 7-18 [facility] ital CREATININE 0.70 mg/dL 0.6-1.0 [facility] SODIUM 140 mmol/L 136-145 [facility] POTASSIUM 3.8 mmol/L 3.5-5.1 [facility] CHLORIDE 102 mmol/L 98-107 [facility] CO2 31 mmol/L 21-32 [facility] CALCIUM 9.1 mg/dL 8.5-10.1 [facility] ANION GAP 7.0 mmol/L 5-12 [facility] GLOMERULAR FILTRATION RATE >90 mL/min [facility] GFR IS CALCULATED IN mL/min/1.73m2 JENNY L FUNCTION: >90MILDLY DECREASED: 60-89MILDY TO MODERATELY DECREASED: 45-59 MODERATELY TO SEVERELY DECREASED: 30-44SEVERELY DECREASED: 15-29RENAL FAILURE: <15 AST 80 U/L 15-37 H [facility] ALT 70 U/L 12-78 [facility] ALKALINE PHOSPHATASE 80 U/L 46-116 [facility] pital TOTAL BILIRUBIN 0.2 mg/dL 0.2-1.0 [facility] TOTAL PROTEIN 7.9 g/dl 6.4-8.2 [facility] ALBUMIN 4.1 gm/dL 3.4-5.0 [facility] ID Date Data Source [id number] 10/17/2020 11:51:00 PM EDT [facility] TSYSORDER [id number] Name Value Range Interpretation Code Description Data Rachel rce(s) Supporting Document(s) MAGNESIUM 1.8 mg/dL 1.8-2.4 [facility] ID Date Data Source [id number] 10/17/2020 11:51:00 PM EDT [facility] TSYSORDER [id number] Name Value Range Interpretation Code Description Data Rachel rce(s) Supporting Document(s) LIPASE 108 U/L 73-393 [facility] ID Date Data Source [id number] 10/17/2020 11:49:00 PM EDT [facility] TSYSORDER [id number] Name Value Range Interpretation Code Description Data Rachel rce(s) Supporting Document(s) PARTIAL THROMBOPLASTIN TIME 26.3 SECONDS 21.2-27.3 [facility] ID Date Data Source [id number] 10/17/2020 11:49:00 PM EDT [facility] TSYSORDER [id number] Name Value Range Interpretation Code Description Data Rachel rce(s) Supporting Document(s) PROTHROMBIN TIME (PATIENT) 9.6 SECONDS 9.1-11.6 [facility] INR 0.92 0.87-1.06 [facility] ID Date Data Source [id number] 10/17/2020 11:32:00 PM EDT [facility] TSYSORDER [id number] Name Value Range Interpretation Code Description Data Rachel rce(s) Supporting Document(s) WHITE BLOOD COUNT 8.1 K/mm3 4.0-10.0 [facility]LOOD [facility] 4.33 M/mm3 4.00-5.50 [facility] HEMOGLOBIN 13.8 gm/dL 12.0-16.0 [facility] HEMATOCRIT 42.4 % 36.0-48.8 [facility] MEAN CELL VOLUME 97.9 fl 80-96 H [facility] MEAN CORPUSCULAR HEMOGLOBIN 31.9 pg 27.0-31.0 H [facility] MEAN CORPUSCULAR HGB CONC 32.5 g/dl 32.0-36.0 [facility] RED CELL DISTRIBUTION WIDTH 12.8 % 10.0-14.5 [facility] PLATELET COUNT 228 K/mm3 172-450 [facility] MEAN PLATELET VOLUME 10.0 fl 9.0-13.0 [facility] pital GRAN % 52.8 % 50-80.0 [facility] IG% 0.0 % 0.0-0.2 [facility] LYMPH % 39.3 % 25.0-50.0 [facility] MONO % 6.5 % 2.0-10.0 [facility] EOS % 1.0 % 0-5.0 [facility] BASO % 0.4 % 0.0-2.0 [facility] GRAN # 4.3 K/mm3 2.0-8.00 [facility] IG# 0.0 K/mm3 0.0-0.2 [facility] LYMPH # 3.2 K/mm3 1.0-5.0 [facility] MONO # 0.5 K/mm3 0.10-1.20 [facility] EOS # 0.1 K/mm3 0.0-0.5 [facility] BASO # 0.0 K/mm3 0.0-0.2 [facility] ID Date Data Source [id number] 10/17/2020 11:28:00 PM EDT [facility] TSYSORDER [id number] Name Value Range Interpretation Code Description Data Rachel rce(s) Supporting Document(s) URINE RBC 5-10 /hpf 0-3 H [facility] URINE EPITHELIAL CELLS 1+ /hpf 0 [facility] ID Date Data Source [id number] 10/17/2020 11:26:00 PM EDT [facility] TSYSORDER [id number] Name Value Range Interpretation Code Description Data Rachel rce(s) Supporting Document(s) URINE COLOR. [facility] URINE APPEARANCE CLEAR [facility] URINE GLUCOSE (UA) NEGATIVE mg/dL NEGATIVE [facility] URINE BILIRUBIN NEGATIVE NEGATIVE [facility] URINE KETONE NEGATIVE mg/dL NEGATIVE [facility] SPECIFIC GRAVITY,URINE 1.020 1.005-1.030 [facility] URINE BLOOD 2+(MODERATE) NEGATIVE [facility] PH,URINE 6.5 5.0-9.0 [facility] URINE PROTEIN NEGATIVE mg/dL NEGATIVE [facility] tianna URINE UROBILINOGEN NORMAL(0.2-1) mg/dL 0-1 [facility] URINE NITRATE NEGATIVE NEGATIVE [facility] URINE LEUKOCYTE ESTERASE NEGATIVE NEGATIVE [facility] ID Date Data Source [id number] 10/17/2020 11:15:00 PM EDT [facility] TSYSORDER [id number] Name Value Range Interpretation Code Description Data Rachel rce(s) Supporting Document(s) HCG URINE NEGATIVE NEGATIVE [facility] ID Date Data Source [id number] 10/10/2020 03:35:00 PM EDT [facility] Name Value Range Interpretation Code Description Data Rachel rce(s) Supporting Document(s) ABO group [Type] in Blood A [facility] Rh [Type] in Blood POSITIVE [facility] AB SCREEN NEGATIVE NORMAL: NEGATIVE [facility] { ABO/RH REENTER A POSITIVE{ AB SCREEN RE-ENTER NEGATIVE ID Date Data Source [id number] 10/10/2020 02:44:00 PM EDT [facility] Name Value Range Interpretation Code Description Data Rachel rce(s) Supporting Document(s) HCG SERUM QUAL NEGATIVE NORMAL: NEGATIVE [facility] HCG SERUM QL REENTER NEGATIVE NORMAL: NEGATIVE [facility] { KIT LOT # [id number] ){ KIT EXP DATE 03.10.22 ){ PROCEDURAL CONTROL VALID ) ID Date Data Source [id number] 10/10/2020 10:59:00 AM EDT [facility] Name Value Range Interpretation Code Description Data Rachel rce(s) Supporting Document(s) CBC NO DIFF [facility] COMPLETE BLOOD COUNT Leukocytes [#/volume] in Blood by Automated count 6.9 10^3/uL 4.2 - 1 1.0 [facility] Erythrocytes [#/volume] in Blood by Automated count 4.31 10^6/uL 4. 20 - 5.40 [facility] Hemoglobin [Mass/volume] in Blood 13.9 g/dL 12.0 - 16.0 [facility] Hematocrit [Volume Fraction] of Blood by Automated count 42.1 % 3 7.0 - 47.0 [facility] Erythrocyte mean corpuscular volume [Entitic volume] by Auto mated count 97.7 fL 81.0 - 101 [facility] Erythrocyte mean corpuscular hemoglobin [Entitic mass] by Automated count 32.3 pg 27.0 - 34.0 [facility] Erythrocyte mean corpuscular hemoglobin concentration [Mass/volume] by Automated count 33.0 g/dL 31.0 - 36.0 [facility] Erythrocyte distribution width [Ratio] by Automated count 12.8 % 11.5 - 14.5 [facility] Platelets [#/volume] in Blood by Automated count 249 10^3/uL 150 - 45 0 [facility] Platelet mean volume [Entitic volume] in Blood by Automated count 9.9 fL 7.4 - 10.4 [facility] ID Date Data Source [id number] 10/10/2020 10:22:00 AM EDT [facility] Name Value Range Interpretation Code Description Data Rachel e(s) Supporting Document(s) SARS coronavirus 2 RNA Not Detected [facility] This lab was ordered by [facility] michael and reported by [facility]. ID Date Data Source [id number] 10/12/2020 02:07:00 PM EDT [facility] Name Value Range Interpretation Code Description Data Rachel rce(s) Supporting Document(s) SARS-CoV-2, JUAN Not Detected Not Detected [facility] This nucleic acid amplification test was developed and its performancecharacteristics determined by [facility]. Nucleic acidamplification tests include RT-PCR and [...] assay. SARS-CoV-2, JUAN 2 DAY TAT Performed [facility] ID Date Data Source [id number] 09/18/2020 02:15:00 PM EDT [facility] Name Value Range Interpretation Code Description Data Rachel rce(s) Supporting Document(s) COVID-19 RT-PCR NASAL SWAB Not Detected Not Detected [facility] A not detected (negative) test result fo [...] developed and its performance characteristics determined by [facility] and verified at [facility]. It has not been cleared or approved by the U.S. Food and Drug Administration for diagnostic use. This test has been authorized by FDA under an EUA for use by authorized laboratories. Results should be used in conjunction with clinical findings, and should not form the sole basis for a diagnosis or treatment decision. Methods: SARS-CoV-2 Multiplex RT-PCR Assay ID Date Data Source [id number] 09/15/2020 04:00:00 PM EDT [facility] Name Value Range Interpretation Code Description Data Rachel rce(s) Supporting Document(s) SARS-CoV-2 (COVID-19) N gene [Presence] in Respiratory specimen by JUAN with probe detection NEGATIVE [facility] This lab was ordered by [facility] and reported by [facility]. ID Date Data Source [id number] 09/15/2020 12:00:00 AM EDT [facility] Name Value Range Interpretation Code Description Data Rachel rce(s) Supporting Document(s) Carestart Rapid COVID Antigen Test Negative [facility] This lab was reported by [facility]. ID Date Data Source [id number] 08/28/2020 02:04:00 AM EDT [address] [place] [address] ---------NAME--------- NUMBER SEX AGE ADMIT DISC. XRAY# F/C TYPE JOCELINE GARCIA N [id number] F 25 08/27/20 08/28/20 181997 SB2 E/R DATE OF : 1995 M/R# [id number] #: [id number] TR-06 LOCATION: EMERGENCY DEPT TRANSCRIBED: 08/28/20 2:[address] ABD //T// PELVIS W/ IV ONLY [id number] COMPLETED:08/28/20 2:48 RLB 9170 Reason(s): abdominal pain, LUQ, RLQ, Diarrhea PHYSICIAN: YUE CLAUDETTE == R A D I O L O G Y R E P O R T PATIENT HISTORY:Abdominal pain, LUQ, RLQ, Diarrhea. Accumulated DLP-675.9 mGy*cm, EstimatedDLP-665.6 mGy*cm. Neg BEta. [id number], 75mL, [id number], 09/30. Labs verified andscanned.Time Out performed. Correct patient with 2 identifiers, type and amount ofcontrast used, correct body part and side all verified prior to examination.Images sent to[facility] for review. - RLB / CORONAL (DICOM Hx)EXAM: CT Abdomen and Pelvis with IV contrastCLINICAL HISTORY:Abdominal pain, LUQ, RLQ, Diarrhea. Accumulated DLP-675.9mGy*cm, Estimated DLP-665.6 mGy*cm. Neg BEta. [id number], 75mL, [id number], 09/30. Labsverified and scanned. Time Out performed. [...] low as reasonably achievable.CONTRAST:with intravenous contrast. With; [id number], 75MlCOMPARISON:None provided.FINDINGS:LUNG BASES: The lung bases appear [...] rce(s) Supporting Document(s) ID Date Data Source [id number] 08/28/2020 10:45:00 AM EDT [facility] Name Value Range Interpretation Code Description Data Rachel rce(s) Supporting Document(s) COVID-19 RT-PCR [facility] SWAB TNP [facility] Sample tube arrived without Viral Transp ort Media, unable to perform test. No evidence of sample leakage. Sample tube arrived without Viral Transport Media, unable to perform test. No evidence of sample leakage. ID Date Data Source [id number] 08/28/2020 10:45:00 AM EDT [facility] Name Value Range Interpretation Code Description Data Rachel rce(s) Supporting Document(s) Non-Conformance #NOMEDIA [facility] Sample tube arrived without Viral Transp ort Media, unable to perform test. No evidence of sample leakage. ID Date Data Source [id number] 08/28/2020 10:45:00 AM EDT [facility] Name Value Range Interpretation Code Description Data Rachel rce(s) Supporting Document(s) REJECTED SPECIMEN #NOMEDIA [facility] Sample tube arrived without Viral Transp ort Media, unable to perform test. No evidence of sample leakage. ID Date Data Source [id number] 08/27/2020 10:54:00 PM EDT [facility] 1 OrderSheet [facility] Emergency Department [address] [place] [address] Phone #: ext- [phone] 08/27/2020 22:53 Patient: ZARIA CAR [facility]#: [id number] Sex: F : 1995 Age: 25yWEIGHT:74.8 kg [...] M.D.;Beta-HCG, Qual STAT 23:08/27/2020 23:20 Melaracemo,Serum Yue, Tj Metza R.N. M.D.;Lactic Acid STAT 23:08/27/2020 23:20 MelaragnoYue, Tj Sarah R.N. M.D.;DIAGNOSTIC STUDY ORDERSOrder Description Priority Entered Acknowledged InitialedCT Abd PEL W/ IV STAT 00:21 08/28/2020 00:21 Bisha,Contrast Only Tj Turner(Oxygen?(No)) Tejas;(IV?(Yes)) Reason for Study: abdominal pain, LUQ, RLQ, DiarrheaMEDICATION/IV/DRIP/FLUID ORDERSOrder Description Priority Entered Acknowledged InitialedNS IV 1000 mL 23:09 08/27/2020 23:31 Meljulio cesar,Bolus: : Bolus 1000 Julianerin, Tj Metza R.N. 2 OrderSheet [facility] Emergency Department [address] [place] [address] Phone #: ext- [phone] 08/27/2020 22:53 Patient: [...] rce(s) Supporting Document(s) ID Date Data Source [id number] 08/27/2020 10:54:00 PM EDT [facility] 1 Medication Reconciliation Report [facility] Emergency Department [address] [place] [address] Phone #: ext- [phone] 08/27/2020 22:53 Patient: ZARIA CAR Sex: F [...] rce(s) Supporting Document(s) ID Date Data Source [id number] 08/27/2020 10:54:00 PM EDT [facility] 1 Medication Administration Record [facility] Emergency Department [address] [place] [address] Phone #: ext- [phone] 08/27/2020 22:53 Patient: ZARIA CAR Sex: F : 1995 Age: 25yWeight: 74.8 kgHeight/Length: 67 inBMI: 25.9ALLERGIES: No Known Drug Allergy Date/Time Medication Administered Medication OrderedStart SODIUM CHLORIDE [IV] NS IV 1000 mL Bolus: : Bolus 801088:31 08/27/2020 Dose: IV Fluids mL (X1)Sarah Wie REj Rate: 1000 mL/hr over 1 hour(s)---- [...] NS IV 1000 mL Bolus: : Bolus 128601:29 08/28/2020 Dose: IV Fluids mL (X1)Eros Ash, [...] rce(s) Supporting Document(s) ID Date Data Source [id number] 08/27/2020 10:54:00 PM EDT [facility] 1 General Instructions [facility] Emergency Department [address] [place] [address] Phone #: ext- [phone] 08/27/2020 22:53 Patient: [...] ADDITIONAL INFORMATIONViral Diarrhea (Adult) 2 General Instructions [facility] Emergency Department [address] [place] [address] Phone #: ext- [phone] 08/27/2020 22:53 Patient: [...] replace what is lost. 3 General Instructions [facility] Emergency Department [address] [place] [address] Phone #: ext- [phone] 08/27/2020 22:53 ---- [...] hands with soap and water or alcohol-based public area attendant to prevent the spread of infection. Wash [...] Keep uncooked meats away from cooked and ibalq-uh-jjf foods.Medicines: You may use acetaminophen or NSAIDS [...] cramping, and pain worse. 4 General Instructions [facility] Emergency Department [address] [place] [address] Phone #: ext- [phone] 08/27/2020 22:53 Patient: [...] to seek medical advice 5 General Instructions [facility] Emergency Department [address] [place] [address] Phone #: ext- [phone] 08/27/2020 22:53 Patient: ZARIA CAR Sex: F [...] Rapid heart rate Seizure Stiff neck [employer]. [address] [place] [address]. All rights reserved. This information is not [...] nausea, vomiting, cramping, and 6 General Instructions [facility] Emergency Department [address] [place] [address] Phone #: ext- [phone] 08/27/2020 22:53 Patient: ZARIA CAR Sex: F [...] the smoke from others. You may use vyyh-lca-yomgmbj acetaminophen or ibuprofen for fever, muscle aching, [...] body and be dangerous to your health. Ijau-mxf-qimuyuh remedies won't shorten the length of the illness but may be helpful for symptoms such as cough, sore throat, nasal and sinus congestion, or diarrhea. Don't use decongestants if you have high blood pressure.Follow-up careFollow up with your healthcare provider if you do not improve over the next week.Call [phone] if any of the following occur: Convulsion Feeling weak, dizzy, or like you are going to faint 7 General Instructions [facility] Emergency Department [address] [place] [address] Phone #: ext- [phone] 08/27/2020 22:53 Patient: [...] or as directed by your healthcare provider [id number] [employer]. [address] [place] [address]. All rights reserved. This information is not intended as asubstitute for professional medical care. Always follow your healthcare professional's instructions. You have been given the following additional information: Diarrhea, Viral (Adult) Viral Syndrome (Adult)(Electronically signed by Tj Turner M.D. 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 --23:04 08/27/20 Sarah [...] Wei R.N.History 2 Clinical Report - Nurses [facility] Emergency Department [address] [place] [address] Phone #: ext- [phone] 08/27/2020 22:53 Patient: [...] given. Two 3 Clinical Report - Nurses [facility] Emergency Department [address] [place] [address] Phone #: ext- [phone] 08/27/2020 22:53 Patient: [...] understanding. --23:31 08/27/20 Sarah Wei R.N.23:31 08/27/2020 [facility] * Drip IV 1000 --23:31 08/27/20 Sarah Wei R.N.The patient is calm and resting quietly. --00:18 08/28/20 Sarah Wei R.N.00:17 08/28/20. BP: 130/70. MAP: 90. HR: 88. RR: 17. O2 saturation: 100% on room air. --00: Sarah Wei R.N.23:47 08/27/2020 [facility] Drip IV Discontinued: completed. Total amount [...] Wei R.N. 4 Clinical Report - Nurses [facility] Emergency Department [address] [place] [address] Phone #: ext- [phone] 08/27/2020 22:53 Patient: [...] Patient verbalized understanding. Written instructions provided in Haitian. No medication instructions or treatment instructions. 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 Accumulated DLP-675.9 mGy*cm, Estimated DLP-665.6 mGy*cm. Neg BEta. [id number], 75mL, [id number], 09/30. Labs verified and scanned. Time Out performed. Correct patient with 2 identifiers, type and amount of contrast used, correct body part and side all verified prior to examination. Images sent [facility] for review. - RLB (Hx) / CORONAL (DICOM Hx) 3 Clinical Report - Physicians/Mid Levels [facility] Emergency De partment [address] [place] [address] Phone #: ext- [phone] 08/27/2020 22:53 Patient: ZARIA CAR Sex: F : 1995 Age: 25yEXAM: CT Abdomen and Pelvis with IV contrastCLINICAL HISTORY: Abdominal pain, LUQ, RLQ, Diarrhea. Accumulated DLP-675.9 mGy*cm, EstimatedDLP-665.6 mGy*cm. Neg BEta. [id number], 75mL, [id number], 09/30. Labs verified and scanned. Time Outperformed. Correct patient with 2 identifiers, type and amount of contrast used, correct body part and sideall verified prior to examination. Images sent [facility] for review. - RLBTECHNIQUE: Axial computed tomography images of the abdomen and pelvis with intravenous contrast. /All CT scans at this facility use dose modulation, iterative reconstruction, and/or weight-based dosing whenappropriate to reduce radiation dose to as low as reasonably achievable.CONTRAST: with intravenous contrast. With; [id number], 75MlCOMPARISON: None provided.FINDINGS:LUNG BASES: The lung bases [...] aneurysm. 4 Clinical Report - Physicians/Mid Levels [facility] Emergency Department [address] [place] [address] Phone #: oxh- [phone] 08/27/2020 22:53 [id number] Sex[facility] F : 1995 Age: 25yBONES: No aggressive appearing osseous lesion. No acute osseous pathology evident.IMPRESSION:1. Appendix is normal.2. The patient is status post cholecystectomy.Electronically signed on Aug 28, 2020 2:04:10 AM EDT by:Wei Waddell MD, Ph.D.Diplomate, [place] [employer]. Study type: abdomen and [...] (mU/mL) Weeks post LMP 5.4-708 mU/mL 3-4 Aqmkt876-43396 mU/mL 5-6 Weeks 4059-976390 mU/mL 7-8 Kvqfb52753-480100 mU/mL 9-10 Weeks 26011-81386 mU/mL 12-14 Jqlto17902-38806 mU/mL 15-16 Weeks 8240-86526 mU/mL 17-18 WeeksCBC w Diff: (ABILIO: 08/27/2020 [...] 0.00) 5 Clinical Report - Physicians/Mid Levels [facility] Emergency Department [address] [place] [address] Phone #: ext- [phone] 08/27/2020 22:53 Patient: [...] Male GFR Interprentation 20-49 yrs >60 mL/min Igdlwu14-28 yrs >56 mL/min Normal 60-69 yrs >49 mL/min Normal 70-79yrs>42 mL/min Normal 80 and above >35 mL/min Normal Female GFRInterpretation 20-39 yrs >60 mL/min Normal 40-49 yrs >58 mL/minNormal 50-59 yrs >51 mL/min Normal 60-69 yrs >45 mL/min Kborqe74-72 yrs >39 mL/min Normal 80 and above [...] Negat 6 Clinical Report - Physicians/Mid Levels [facility] Emergency Department [address] [place] [address] Phone #: ext- [phone] 08/27/2020 22:53 Patient: [...] Beta-HCG, Qual Serum: (ABILIO: 08/27/2020 23:18) [facility] Canceled Lactic Acid: (ABILIO: 08/27/2020 [...] and spicy 7 Clinical Report - Physicians/[facility] Emergency Department [address] [place] [address] Phone #: ext- [phone] 08/27/2020 22:53 Patient: [...] Name Value Range Interpretation Code Description Data [facility] rce(s) Supporting Document(s) ID Date Data Source [id number] 08/27/2020 11:59:00 PM EDT [facility] Name Value Range Interpretation Code Description Data [facility] rce(s) Supporting Document(s) COMPREHENSIVE METABOLIC PANEL [facility] COMPREHENSIVE METABOLIC PANEL Sodium [Moles/volume] in Serum or Plasma 135 mEq/L 134 - 153 [facility] Potassium [Moles/volume] in Serum or Plasma 3.4 mEq/L 3.6 - 5.0 L [facility] Chloride [Moles/volume] in Serum or Plasma 100 mEq/L 98 - 107 [facility] Carbon dioxide, total [Moles/volume] in Serum or Plasma 23 MEQ/L 22 - 30 [facility] Glucose [Mass/volume] in Serum or Plasma 132 MG/DL 70 - 99 H [facility] BUN 9 MG/DL 7 - 21 [facility] Creatinine [Mass/volume] in Serum or Plasma 0.5 MG/DL 0.7 - 1.5 L [facility] BUN/CREAT 18 8 - 27 [facility] Protein [Mass/volume] in Serum or Plasma 7.2 G/DL 6.3 - 8.2 [facility] Albumin [Mass/volume] in Serum or Plasma 4.5 G/DL 3.9 - 5.0 [facility] Globulin [Mass/volume] in Serum by calculation 2.7 GM/DL 2.4 - 3.2 [facility] A/G RATIO 1.7 0.8 - 2.0 [facility] Calcium [Mass/volume] in Serum or Plasma 9.5 MG/DL 8.4 - 10.2 [facility] Bilirubin.total [Mass/volume] in Serum or Plasma 0.7 MG/DL 0.2 - 1.3 [facility] Alkaline phosphatase [Enzymatic activity/volume] in Serum or Plasma 90 U/L 38 - 126 [facility] Aspartate aminotransferase [Enzymatic activity/volume] in Serum or Plasma 13 U/L 5 - 40 [facility] Alanine aminotransferase [Enzymatic activity/volume] in Seru m or Plasma 10 U/L 7 - 56 [facility] Anion gap 3 in Serum or Plasma 12.0 mmol/L 8.0 - 16.0 [facility] AGE 25 yrs [facility] NON-AA GFR >60 mL/min [facility] AFR AMER GFR >60 mL/min [facility] Male GFR In [...] >32 mL/min Normal ID Date Data Source [id number] 08/27/2020 11:55:00 PM EDT [facility] Name Value Range Interpretation Code Description Data Rachel rce(s) Supporting Document(s) Lipase [Enzymatic activity/volume] in Serum or Plasma 28 U/L 13 - 60 [facility] ID Date Data Source [id number] 08/27/2020 11:45:00 PM EDT [facility] Name Value Range Interpretation Code Description Data Rachel rce(s) Supporting Document(s) CBC W/AUTOMATED DIFF [facility] COMPLETE BLOOD COUNT Leukocytes [#/volume] in Blood by Automated count 11.8 10^3/uL 4.2 - 11.0 H [facility] Erythrocytes [#/volume] in Blood by Automated count 4.34 10^6/uL 4. 20 - 5.40 [facility] Hemoglobin [Mass/volume] in Blood 14.0 g/dL 12.0 - 16.0 [facility] Hematocrit [Volume Fraction] of Blood by Automated count 41.4 % 3 7.0 - 47.0 [facility] Erythrocyte mean corpuscular volume [Entitic volume] by Auto mated count 95.4 fL 81.0 - 101 [facility] Erythrocyte mean corpuscular hemoglobin [Entitic mass] by Automated count 32.3 pg 27.0 - 34.0 [facility] Erythrocyte mean corpuscular hemoglobin concentration [Mass/volume] by Automated count 33.8 g/dL 31.0 - 36.0 [facility] Erythrocyte distribution width [Ratio] by Automated count 12.5 % 11.5 - 14.5 [facility] Platelets [#/volume] in Blood by Automated count 224 10^3/uL 150 - 45 0 [facility] Platelet mean volume [Entitic volume] in Blood by Automated count 10.4 fL 7.4 - 10.4 [facility] Neutrophils/100 leukocytes in Blood by Automated count 76.5 % 37. 0 - 80.0 [facility] Lymphocytes/100 leukocytes in Blood by Manual count 17.2 % 25.0 - 40.0 L [facility] Monocytes/100 leukocytes in Blood by Automated count 5.4 % 3.0 - 8.0 [facility] Eosinophils/100 leukocytes in Blood by Automated count 0.4 % 0.0 - 7.0 [facility] Basophils/100 leukocytes in Blood by Automated count 0.3 % 0.0 - 2.5 [facility] %IG 0.2 % 0.0 - 0.0 [facility].0 % 0.0 - 0.0 [facility] al Neutrophils [#/volume] in Blood by Automated count 9.02 10^3/uL 2.00 - 6.90 H [facility] Lymphocytes [#/volume] in Blood by Automated count 2.02 10^3/uL 0.60 - 3.40 [facility] Monocytes [#/volume] in Blood by Automated count 0.63 10^3/uL 0.00 - 0.90 [facility] Eosinophils [#/volume] in Blood by Automated count 0.05 10^3/uL 0.00 - 0.70 [facility] Basophils [#/volume] in Blood by Automated count 0.03 10^3/uL 0.00 - 0.20 [facility] #IG 0.02 10^3/uL 0.00 - 0.10 [facility] #NRBC 0.00 10^3/uL 0.00 - 0.00 [facility] MANUAL DIFF SEE BELOW [facility] ital Segmented neutrophils/100 leukocytes in Blood by Manual count 82 % 37 - 80 H [facility] %LYMPH 12 % 25 - 40 [facility] %MONO 5 % 3 - 8 [facility] %EOS 1 % 0 - 7 [facility] RBC MORPH MORPH IS NORMAL [facility] ID Date Data Source [id number] 08/27/2020 11:44:00 PM EDT [facility] Name Value Range Interpretation Code Description Data Rachel rce(s) Supporting Document(s) Choriogonadotropin.intact [Units/volume] in Serum or Plasma <0.5 mIU/ mL [facility] Interpr etation: Less than 5 mU/mL: Negative 6-10 mU/mL: Borderline (suggest repeat in 48 hours) >10: Positive Approx HCG range (mU/mL) Weeks post LMP 5.4-708 mU/mL 3-4 Weeks 217-64959 mU/mL 5-6 Weeks 4059-884601 mU/mL 7-8 Weeks 38892-840350 mU/mL 9-10 Weeks 49577-24962 mU/mL 12-14 Weeks 91462-92850 mU/mL 15-16 Weeks 8240- 48331 mU/mL 17-18 Weeks ID Date Data Source [id number] 08/27/2020 11:42:00 PM EDT [facility] Name Value Range Interpretation Code Description Data Rachel rce(s) Supporting Document(s) URINALYSIS [facility] tianna URINALYSIS SOURCE Clean Catch [facility] COLOR yellow NORMAL: Yellow [facility] CLARITY clear NORMAL: Clear [facility] Specific gravity of Urine by Test strip 1.010 1.001 - 1.030 [facility] pH 6.5 5 - 9 [facility] Glucose [Mass/volume] in Urine by Test strip NORM NORMAL: Negat [facility] Bilirubin.total [Presence] in Urine by Test strip NEG NORMAL: Negative [facility] Ketones [Presence] in Urine by Test strip 50 NORMAL: Negative A [facility] Protein [Mass/volume] in Urine by Test strip 30 NORMAL: Negat [facility] Nitrite [Presence] in Urine by Test strip NEG NORMAL: Negative [facility] BLOOD NEG NORMAL: Negative [facility] Leukocyte esterase [Presence] in Urine by Test strip 25 JENNY L: Negative [facility] Urobilinogen [Mass/volume] in Urine by Test strip 1 less nathalia n 1.0 mg/dL [facility] MICROSCOPIC See Below [facility] ital WBC 1 - 3 NORMAL: NONE SEEN [facility] Erythrocytes [#/volume] in Urine by Test strip 0 - 1 NORMAL: NON E SEEN [facility] EPITHELIAL FEW NORMAL: NONE SEEN [facility] Bacteria [Presence] in Urine sediment by Light microscopy Tr rosy NORMAL: NONE SEEN [facility] Mucus [Presence] in Urine sediment by Light microscopy Trace NORMAL: NONE SEEN [facility] ID Date Data Source [id number] 08/27/2020 11:42:00 PM EDT [facility] Name Value Range Interpretation Code Description Data Rachel rce(s) Supporting Document(s) Lactate [Moles/volume] in Serum or Plasma 2.7 MMOL/L 0.2 - 2.2 H [facility] ID Date Data Source [id number] 08/27/2020 12:00:00 AM EDT [facility] Name Value Range Interpretation Code Description Data Rachel rce(s) Supporting Document(s) Carestart Rapid COVID Antigen Test Negative [facility] This lab was reported by Lakhwinder king. ID Date Data Source [id number] 08/15/2020 09:04:00 AM EDT [facility] [address] [place] [address] PHONE: [phone] FAX: [phone] Name .................. : JOCELINE Nguyễn Acct Number.................. : [id number] ROOM. ................. : TR-02 MR Number ................... : [id number] Stay type ............. : E/R Discharge Date......... ... : 08/14/20 Admit Date ......... : 08/14/20 Admit Phys .................... : COONEYNORM Date of ....... : 1995 Family Phys ................... : UNKNOWN Phone .................. : [phone] Age ................................ : 25 Film# .................. .:[id number] Sex ................................. : F Unsigned transcriptions are preliminary reports and do not represent a medical or legal document CT ABD & PELVIS W/ IV ONLY [id number] COMPLETE:08/14/20 19:22 ARLENE 8055 Reason(s): Abdominal Pain [...] 75 Isovue 370 Page 1 of 2 [facility] [address] [facility] [place] [id number] PHONE: [phone] FAX: [phone] Name .................. : JOCELINE GARCIA Chan Acct Number.................. : [id number] ROOM. ................. : TR-02 MR Number ................... : [id number] Stay type ............. : E/R Discharge Date......... ... : 08/14/20 Admit Date ......... : 08/14/20 Admit Phys .................... : COONEYNORM Date of ....... : 1995 Family Phys ................... : UNKNOWN Phone .................. : [phone] Age ................................ : 25 Film# .................. .:[id number] Sex ................................. : F Unsigned transcriptions are preliminary reports and do not represent a medical or legal document CT ABD & PELVIS W/ IV ONLY [id number] COMPLETE:08/14/20 19:22 ARLENE 8055 Reason(s): Abdominal Pain [...] rce(s) Supporting Document(s) ID Date Data Source [id number] 08/14/2020 06:54:00 PM EDT [facility] 1 OrderSheet [facility] Emergency Department [address] [place] [address] Phone #: ext- [phone] 08/14/2020 18:33 Patient: [...] Ack'd: 18:47 19:08 BurnhamContrast Only Bhavna Floyd blanket inspector, Deric ER(Oxygen?(No)) PA; Gladis Tech1(IV?(Yes)) NOTES: RLQ Pain Reason for Study: Abdominal PainMEDICATION/IV/DRIP/FLUID ORDERSOrder Description Priority Entered Acknowledged InitialedNS IV : Bolus 1000 18:47 08/14/2020 Ack'd: 18:47 19:25 Oscar,mL, then 150 mL/hr Bhavna Covarrubias R.N.; R.NAzul 2 OrderSheet [facility] Emergency Department [address] [place] [address] Phone #: ext- [phone] 08/14/2020 18:33 Patient: [...] rce(s) Supporting Document(s) ID Date Data Source [id number] 08/14/2020 06:54:00 PM EDT [facility] 1 Medication Reconciliation Report [facility] Emergency Department [address] [place] [address] Phone #: ext- [phone] 08/14/2020 18:33 Patient: [...] Dispense 20 tablet. Refills: 0.Substitution permitted.Pharmacy - [facility] [address] [facility] [employer] - [address] [facility] ; [place] [address]. . -- CHRISTIN Gonzalez Name Value Range Interpretation Code Description Data Rachel rce(s) Supporting Document(s) ID Date Data Source [id number] 08/14/2020 06:54:00 PM EDT [facility] 1 Medication Administration Record [facility] Emergency Department [address] [place] [address] Phone #: ext- [phone] 08/14/2020 18:33 Patient: ZARIA CAR Sex: F : 1995 Age: 25yWeight: 71.2 kgHeight/Length: 67 inBMI: 24.6ALLERGIES: No Known Drug Allergy Date/Time Medication Administered Medication OrderedStart NS [IV] NS IV : Bolus 1000 mL, then 88768:20 08/14/2020 Dose: IV Fluids mL/hrBhavna Moroe R.NAzul Bolus: 1000 mL wide open---- Dispensed: [...] rce(s) Supporting Document(s) ID Date Data Source [id number] 08/14/2020 06:54:00 PM EDT [facility] 1 General Instructions [facility] Emergency Department [address] [place] [address] Phone #: ext- [phone] 08/14/2020 18:33 Patient: [...] Dispense 20 tablet. Refills: 0.Substitution permitted.Pharmacy - [facility] [address] [facility] [id number] [place] [address] ; [place] [address]. .Follow-up:Follow up with a specialist OB. Reason for referral: Ovarian Cyst versus Adhesions?. Summary of careprovided to patient.Understanding of the discharge instructions verbalized by patient. ADDITIONAL INFORMATIONUnknown Causes of Abdominal Pain (Female) 2 General Instructions [facility] Emergency Department [address] [place] [address] Phone #: ext- [phone] 08/14/2020 18:33 Patient: [...] for taking these medicines. 3 General Instructions [facility] Emergency Department [address] [place] [address] Phone #: ext- [phone] 08/14/2020 18:33 Patient: [...] begin to improve in thenext 24 hours.Call [phone] if any of these occur: Trouble breathing Confusion Fainting or loss of consciousness Rapid heart rate 4 General Instructions [facility] Emergency Department [address] [place] [address] Phone #: ext- [phone] 08/14/2020 18:33 Patient: [...] or water and you are getting dehydrated [id number] [employer]. [address] [place] [id number]. All rights reserved. This information is not intended as asubstitute for professional medical care. Always follow your healthcare professional's instructions. You have been given the following additional information: Abdominal Pain, Unknown Cause, (Female)(Electronically signed by CHRISTIN Gonzalez 08/14/2020 20:34) Name Value Range Interpretation Code Description Data Rachel rce(s) Supporting Document(s) ID Date Data Source [id number] 08/14/2020 06:54:00 PM EDT [facility] 1 Clinical Report - Nurses [facility] Emergency Department [address] [place] [address] Phone #: ext- [phone] 08/14/2020 18:33 Patient: ZARIA CAR Sex: F [...] very painful to palpation. Pt went to [facility] on Thursday morning who did lab work butultimately discharged without answer. Pt states since then has gotten worse still and does not have anappetite. Pt denies n/v/d.). She has had abdominal pain. The pain is described as located in the RLQ.No nausea, vomiting, diarrhea or constipation. 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 [...] within normallimits. 3 Clinical Report - Nurses [facility] Emergency Department [address] [place] [address] Phone #: ext- [phone] 08/14/2020 18:33 Patient: ZARIA CAR Sex: F [...] CT by wheelchair with IV, mask and equipment maint tech. --19:19 08/14/20 Bhavna Moore R.N. late entry - 19:12 08/14/20. Patient transported to CT by wheelchair with IV, mask and equipment maint tech. --19:20 08/14/20 Bhavna Moore R.N. 19:20 08/14/2020 [...] Moore R.N. 4 Clinical Report - Nurses [facility] Emergency Department [address] [place] [address] Phone #: ext- [phone] 08/14/2020 18:33 Patient: [...] Patient verbalized understanding. Written instructions provided in Haitian. The patient was discharged by the physician ssn/ssbn assistant navigator. She was discharged home and accompanied by [...] rce(s) Supporting Document(s) ID Date Data Source [id number] 08/14/2020 06:54:00 PM EDT [facility] 1 Clinical Report - Physicians/Mid Levels [facility] Emergency Department [address] [place] [address] Phone #: ext- [phone] 08/14/2020 18:33 Patient: ZARIA CAR Sex: F : 1995 Age: 25y Time Seen: 18:34 08/14/2020. Arrived- By private vehicle. Historian- patient.HISTORY OF PRESENT ILLNESS Chief Complaint: ABDOMINAL PAIN and NAUSEA. This started 4 days ago; Pt states she has had RLQ abd pain since Thursday and this has progressively gotten worse. Pt states very painful to palpation. Pt went to [facility] on Thursday morning who did lab work [...] Allergy. 2 Clinical Report - Physicians/Mid Levels [facility] Emergency Department [address] [place] [address] Phone #: ext- [phone] 08/14/2020 18:33 Patient: [...] 0.70) 3 Clinical Report - Physicians/Mid Levels [facility] Emergency Department [address] [place] [address] Phone #: ext- [phone] 08/14/2020 18:33 Patient: [...] Pain. 4 Clinical Report - Physicians/Mid Levels [facility] Emergency Department [address] [place] [address] Phone #: ext- [phone] 08/14/2020 18:33 Patient: ZARIA CAR Sex: F : 1995 Age: 25yPROGRESS AND PROCEDURESCourse of Care: 19:55 Aug 14 2020. Evaluation after observation. (Discussed CT A/P and possiblyOvarian cyst versus adhesions, pt has f/u with OB. Pt had negative HCG at [facility] on Thursday.). Patient counseled in person regarding [...] tablet. Refills: 0. Substitution permitted. Pharmacy - [facility] [id number] [place] [facility] [id number] [place] [address] ; [place] [address]. . Follow-up: Follow up with a specialist OB. Reason for referral: Ovarian Cyst versus Adhesions?. Summary of care provided to patient. Understanding of the discharge instructions verbalized by patient.(Electronically signed by CHRISTIN Gonzalez 08/14/2020 20:34) 5Clinical Report - Physicians/Mid Levels [facility] Emergency Department [address] [place] [address] Phone #: ext- [phone] 08/14/2020 18:33 Patient: ZARIA CAR Sex: F : 1995 Age: 25y Name Value Range Interpretation Code Description Data Rachel rce(s) Supporting Document(s) ID Date Data Source [id number] 08/14/2020 07:46:00 PM EDT [facility] Name Value Range Interpretation Code Description Data Rachel rce(s) Supporting Document(s) Lipase [Enzymatic activity/volume] in Serum or Plasma 31 U/L 13 - 60 [facility] ID Date Data Source [id number] 08/14/2020 07:46:00 PM EDT [facility] Name Value Range Interpretation Code Description Data Rachel rce(s) Supporting Document(s) COMPREHENSIVE METABOLIC PANEL [facility] COMPREHENSIVE METABOLIC PANEL Sodium [Moles/volume] in Serum or Plasma 136 mEq/L 134 - 153 [facility] Potassium [Moles/volume] in Serum or Plasma 4.2 mEq/L 3.6 - 5.0 [facility] Chloride [Moles/volume] in Serum or Plasma 100 mEq/L 98 - 107 [facility] Carbon dioxide, total [Moles/volume] in Serum or Plasma 29 MEQ/L 22 - 30 [facility] Glucose [Mass/volume] in Serum or Plasma 86 MG/DL 70 - 99 [facility] BUN 8 MG/DL 7 - 21 [facility] Creatinine [Mass/volume] in Serum or Plasma 0.5 MG/DL 0.7 - 1.5 L [facility] BUN/CREAT 16 8 - 27 [facility] Protein [Mass/volume] in Serum or Plasma 6.6 G/DL 6.3 - 8.2 [facility] Albumin [Mass/volume] in Serum or Plasma 4.3 G/DL 3.9 - 5.0 [facility] Globulin [Mass/volume] in Serum by calculation 2.3 GM/DL 2.4 - 3.2 L [facility] A/G RATIO 1.9 0.8 - 2.0 [facility] Calcium [Mass/volume] in Serum or Plasma 9.8 MG/DL 8.4 - 10.2 [facility] Bilirubin.total [Mass/volume] in Serum or Plasma <0.7 MG/DL 0.2 - 1.3 [facility] Alkaline phosphatase [Enzymatic activity/volume] in Serum or Plasma 69 U/L 38 - 126 [facility] Aspartate aminotransferase [Enzymatic activity/volume] in Serum or Plasma 12 U/L 5 - 40 [facility] Alanine aminotransferase [Enzymatic activity/volume] in Seru m or Plasma 6 U/L 7 - 56 L [facility] Anion gap 3 in Serum or Plasma 7.0 mmol/L 8.0 - 16.0 L [facility] AGE 25 yrs [facility] NON-AA GFR >60 mL/min [facility] ital AFR AMER GFR >60 mL/min [facility] spital Male GFR In [...] >32 mL/min Normal ID Date Data Source [id number] 08/14/2020 07:33:00 PM EDT [facility] Name Value Range Interpretation Code Description Data Rachel rce(s) Supporting Document(s) Lactate [Moles/volume] in Serum or Plasma 1.4 MMOL/L 0.2 - 2.2 [facility] ID Date Data Source [id number] 08/14/2020 07:25:00 PM EDT [facility] Name Value Range Interpretation Code Description Data Rachel rce(s) Supporting Document(s) CBC W/AUTOMATED DIFF [facility] COMPLETE BLOOD COUNT Leukocytes [#/volume] in Blood by Automated count 6.7 10^3/uL 4.2 - 1 1.0 [facility] Erythrocytes [#/volume] in Blood by Automated count 4.16 10^6/uL 4. 20 - 5.40 L [facility] Hemoglobin [Mass/volume] in Blood 13.4 g/dL 12.0 - 16.0 [facility] Hematocrit [Volume Fraction] of Blood by Automated count 40.4 % 3 7.0 - 47.0 [facility] Erythrocyte mean corpuscular volume [Entitic volume] by Auto mated count 97.1 fL 81.0 - 101 [facility] Erythrocyte mean corpuscular hemoglobin [Entitic mass] by Automated count 32.2 pg 27.0 - 34.0 [facility] Erythrocyte mean corpuscular hemoglobin concentration [Mass/volume] by Automated count 33.2 g/dL 31.0 - 36.0 [facility] Erythrocyte distribution width [Ratio] by Automated count 12.5 % 11.5 - 14.5 [facility] Platelets [#/volume] in Blood by Automated count 231 10^3/uL 150 - 45 0 [facility] Platelet mean volume [Entitic volume] in Blood by Automated count 10.6 fL 7.4 - 10.4 H [facility] Neutrophils/100 leukocytes in Blood by Automated count 52.7 % 37. 0 - 80.0 [facility] Lymphocytes/100 leukocytes in Blood by Manual count 36.0 % 25.0 - 40.0 [facility] Monocytes/100 leukocytes in Blood by Automated count 8.8 % 3.0 - 8.0 H [facility] Eosinophils/100 leukocytes in Blood by Automated count 1.6 % 0.0 - 7.0 [facility] Basophils/100 leukocytes in Blood by Automated count 0.6 % 0.0 - 2.5 [facility] %IG 0.3 % 0.0 - 0.0 [facility] 0.0 % 0.0 - 0.0 [facility] al Neutrophils [#/volume] in Blood by Automated count 3.51 10^3/uL 2.00 - 6.90 [facility] Lymphocytes [#/volume] in Blood by Automated count 2.40 10^3/uL 0.60 - 3.40 [facility] Monocytes [#/volume] in Blood by Automated count 0.59 10^3/uL 0.00 - 0.90 [facility] Eosinophils [#/volume] in Blood by Automated count 0.11 10^3/uL 0.00 - 0.70 [facility] Basophils [#/volume] in Blood by Automated count 0.04 10^3/uL 0.00 - 0.20 [facility] #IG 0.02 10^3/uL 0.00 - 0.10 [facility] H ospital #NRBC 0.00 10^3/uL 0.00 - 0.00 [facility] ospital MANUAL DIFF NOT INDICATED [facility] RBC MORPH NOT INDICATED [facility] spital ID Date Data Source [id number] 07/10/2020 02:44:00 PM EST [facility] ([facility]) Name Value Range Interpretation Code Description Data Rachel rce(s) Supporting Document(s) Glucose, Fasting 94 mg/dL 70-100 [facility] ([facility]) Blood Urea Nitrogen 10 mg/dL 7-18 [facility] ([facility]) Creatinine For GFR 0.60 mg/dL 0.55-1.30 [facility] ([facility]) Glomerular Filtration Rate Laboratory test result [facility] ([facility]) <content>Units are mL/min/1.73 m2</content>
<content></content>
<content>Chronic Kidney Disease Staging per NKF:</content>
<content></content>
<content>Stage I & II GFR >=60 Normal to Mildly Decreased</content>
<content>Stage III GFR 30- 59 Moderately Decreased</content>
<content>Stage IV GFR 15-29 Severely Decreased</content>
<content>Stage V GFR <15 Very Little GFR Left</content>
<content>ESRD GFR <15 on SOW MANAGER</content>
<content></content> Sodium Level 139 meq/L 136-145 [facility] ([facility]) Potassium Serum 4.3 meq/L 3.5-5.1 [facility] ([facility]) Chloride Level 105 meq/L 98-107 [facility] ([facility]) Carbon Dioxide Level 30 meq/L 21-32 [facility] ([facility]) Anion Gap 4 meq/L 8-16 [facility] ([facility] Ast/Sgot 7 U/L 7-37 [facility] ([facility]) Calcium Level 9.5 mg/dL 8.5-10.1 [facility] ([facility]) Alt/SGPT 17 U/L 12-78 [facility] ([facility], [facility]) Bilirubin,Total 0.3 mg/dL 0.2-1.0 [facility] ([facility]) Alkaline Phosphatase 85 U/L 45-117 [facility] ( [facility]) Albumin 4.1 GM/DL 3.2-5.2 [facility] ([facility], [facility]) Total Protein 7.6 GM/DL 6.4-8.2 [facility] ([facility], [facility]) Albumin/Globulin Ratio 1.2 1.2-2.2 [facility] ([facility], [facility]) ID Date Data Source [id number] 07/10/2020 02:44:00 PM EST [facility] ([facility], [facility]) Name Value Range Interpretation Code Description Data Rachel rce(s) Supporting Document(s) White Blood Count 6.7 10 4.0-10.0 [facility] ([facility], [facility]) Red Blood Count 4.57 10 4.00-5.40 [facility] ([facility], [facility]) Hemoglobin 14.1 g/dL 12.0-15.5 [facility] ([facility] Hematocrit 45.2 % 36.0-47.0 [facility] ([facility]) Mean Corpuscular Volume 98.9 fl 80.0-96.0 M [facility] ([facility], [facility]) Mean Corpuscular HGB Conc 31.2 g/dL 32.0-36.5 [facility] ([facility], [facility]) Mean Corpuscular Hemoglobin 30.9 pg 27.0-33.0 [facility] ([facility], [facility]) Red Cell Distribution Width 12.5 % 11.5-14.5 [facility] ([facility], [facility]) Platelet Count, Automated 247 10 150-450 [facility] ([facility], [facility]) Neutrophils % 65.4 % 36.0-66.0 [facility] ([facility], [facility]) Lymph % 26.9 % 24.0-44.0 [facility] ([facility], [facility]) [place] % 6.6 % 2.0-8.0 [facility] ([facility], [facility]) Eos % 0.6 % 0.0-3.0 [facility] ([facility], [facility]) Baso % 0.4 % 0.0-1.0 [facility] ([facility], [facility]) Immature Granulocyte % 0.1 % 0-3.0 [facility] ([facility], [facility]) Neutrophils # 4.4 10 1.5-8.5 [facility] ([facility], [facility]) Nucleated Red Blood Cell % 0.0 % 0-0 [facility] ([facility], [facility]) Lymph # 1.8 10 1.5-5.0 [facility] ([facility]) [place] # 0.4 10 0.0-0.8 [facility] ([facility]) Baso # 0.0 10 0.0-0.2 [facility] ([facility], [facility]) Eos # 0.0 10 0.0-0.5 [facility] ([facility], [facility]) ID Date Data Source [id number] 07/04/2020 01:30:00 PM EST [facility] ([facility]) Name Value Range Interpretation Code Description Data Rachel rce(s) Supporting Document(s) Influenza virus A RNA [Presence] in Unsp ecified specimen by Probe and target amplification method Laboratory test result [facility] ([facility]) Influenza virus B RNA [Presence] in Unsp ecified specimen by Probe and target amplification method Laboratory test result [facility] ([facility]) ID Date Data Source [id number] 07/04/2020 01:29:00 PM EST [facility] Name Value Range Interpretation Code Description Data Rachel rce(s) Supporting Document(s) SARS coronavirus 2 RNA Not Detected [facility] [place] This lab was ordered by [facility] Gonzalez rodriguez and reported by [facility]. ID Date Data Source [id number] 07/07/2020 04:20:00 PM EST [facility] Name Value Range Interpretation Code Description Data Rachel rce(s) Supporting Document(s) SARS-CoV-2, JUAN Not Detected Not Detected [facility] This nucleic acid amplification test was developed and its performancecharacteristics determined by [facility]. Nucleic acidamplification tests include RT-PCR and TMA. [...] Current Smoker completed Curre nt Smoker eCW1 ([facility]) Smoking 11/01/2020 12:00:00 AM EDT Current Smoker completed Curre nt Smoker eCW1 ([facility]) Vital Signs ID Date Data Source UNK Name Value Range Interpretation Code Description Data Source(s) Systolic blood pressure 116 mm[Hg] 116 mm[Hg] M [facility]ENT ([facility]) Body weight 170.38 [lb_av] 170.38 [lb_av] MED[facility] T ([facility]) Body weight 77.282 kg 77.282 kg [facility] ([facility]) Body height 68 [in_i] 68 [in_i] [facility] ([facility]) 5'8" Body mass index (BMI) [Ratio] 25.9 kg/m2 25.9 k g/m2 [facility] ([facility]) Body surface area Derived from formula 1.91 m2 1.91 m2 [facility] ([facility]) Diastolic blood pressure 76 mm[Hg] 76 mm[Hg] [facility] ([facility]) Respiratory rate 18 /min 18 /min [facility] ( [facility]) Oxygen saturation in Arterial blood by Pulse oximetry 97 % 97 % [facility] ([facility]) Body weight 164.2 [lb_av] 164.2 [lb_av] eCW1 ([facility]) Body height 68 [in_i] 68 [in_i] eCW1 (Replaced by [facility]) Body mass index (BMI) [Ratio] 24.96 kg/m2 24.96 kg/m2 W1 ([facility]) Heart rate 87 /min 87 /min eCW1 ([facility]) Respiratory rate 16 /min 16 /min eCW1 ([facility]) Body temperature 97.6 [degF] 97.6 [degF] eCW1 ( [facility]) Systolic blood pressure 111 mm[Hg] 111 mm[Hg] e CW1 ([facility]) Diastolic blood pressure 75 mm[Hg] 75 mm[Hg] eCW1 ([facility]) Respiratory rate 16 /min 16 /min [facility] ( [facility], [facility]) Body height 67 [in_i] 67 [in_i] [facility] ([facility]) 5'7" Body temperature 97.0 [degF] 97.0 [degF] [facility] ([facility], [facility]) Systolic blood pressure 115 mm[Hg] 115 mm[Hg] M EDENT ([facility], [facility]) Oxygen saturation in Arterial blood by Pulse oximetry 97 % 97 % [facility] ([facility], [facility]) Diastolic blood pressure 80 mm[Hg] 80 mm[Hg] [facility] ([facility], [facility]) Heart rate 95 /min 95 /min [facility] ([facility], [facility]) Body weight 155.00 [lb_av] 155.00 [lb_av] MEDEN T ([facility], [facility]) Body mass index (BMI) [Ratio] 24.3 kg/m2 24.3 k g/m2 [facility] ([facility], [facility]) Body temperature 98.1 [degF] 98.1 [degF] [facility] ([facility]) Respiratory rate 16 /min 16 /min [facility] ( [facility]) Oxygen saturation in Arterial blood by Pulse oximetry 98 % 98 % [facility] ([facility]) Heart rate 87 /min 87 /min [facility] ([facility]) ID Date Data Source [id number] 01/03/2021 02:45:29 PM EDT [facility] Name Value Range Interpretation Code Description Data Source(s) WEIGHT RECORDED 160.00 pounds 160.00 pounds [facility] Height 67 Inches 067 Inches [facility]
[2021-04-13] MEDS ORDERED: METOCLOPRAMIDE INJ 10MG/2ML VIAL (J2765 PER 1) IV ONE (09:05)
--- NOTE | 2021-04-13 09:19 | REPVR ---
PROCEDURE INFORMATION: Exam: CT Abdomen And Pelvis With Contrast Exam date and time: 04/13/2021 7:09 AM Age: 26 years old Clinical indication: Other: Abdominal pain/n/v TECHNIQUE: Imaging protocol: Computed tomography of the abdomen and pelvis with contrast. Radiation optimization: All CT scans at this facility use at least one of these dose optimization techniques: automated exposure control; mA and/or kV adjustment per patient size (includes targeted exams where dose is matched to clinical indication); or iterative reconstruction. Contrast material: ISOVUE 370; Contrast volume: 100 ml; Contrast route: INTRAVENOUS (IV); COMPARISON: CT ABD/PEL W/IV CONTRAST ONLY 03/10/2021 9:03 AM FINDINGS: Limitations: None. Lungs: Tessy mass at movement on CT rim mass rim at CT man, the Mac-Loc the latter with mild narrowing more Dez lock 1 in mass the mass lung mass macro CT get up and man The stomach is poorly distended, limiting its evaluation. No focal wall thickening or surrounding fatty stranding. Liver: Low-density liver might be due to fatty infiltration. The enhancing foci previously identified in the right and left lobes of the liver stable could be small hemangiomas as noted previously. Gallbladder and bile ducts: Gallbladder is absent without choledocholithiasis. Pancreas: Normal. No ductal dilation. Spleen: Normal. No splenomegaly. Adrenal glands: Normal. No mass. Kidneys and ureters: Normal. No hydronephrosis. Stomach and bowel: Unremarkable. No obstruction. No mucosal thickening. Appendix: Normal appendix. Intraperitoneal space: Trace free fluid in the pelvis can be physiologic in younger females. No free air. Vasculature: Unremarkable. No abdominal aortic aneurysm. Lymph nodes: Unremarkable. No enlarged lymph nodes. Urinary bladder: Unremarkable as visualized. Reproductive: Low-density bilateral adnexal lesions measure 2.7 cm on right and 3.1 cm on the left. The lesion on the right is enlarged lesion on the left is somewhat smaller. Ultrasound follow-up can be utilized. Mildly heterogeneous uterus possibly due to small fibroids. Bones/joints: Unremarkable. No acute fracture. Soft tissues: Fatty umbilical hernia without bowel. IMPRESSION: 1. Findings suggestive of fatty liver and hepatic Kevan is comparable to the prior. 2. Adnexal lesions as above which can be followed with ultrasound with possible small uterine fibroids. 3. No bowel obstruction or free air. 4. Likely physiologic free fluid in the pelvis. 5. No bowel obstruction or free air. Electronically signed by: Francesco Shay On 04/13/2021 09:18:14 AM
--- NOTE | 2021-04-13 10:21 | REP ---
INDICATION: adenexal esion on ct. COMPARISON: Comparison is made with today's CT study of the pelvis. TECHNIQUE: Transabdominal and transvaginal scanning were performed. FINDINGS: Uterine dimensions are normal at 9.1 x 4.0 x 6.0 cm. Endometrial echo is 1.0 cm thick and centrally placed. No free fluid is seen in the cul-de-sac. Visualized bladder fields are smooth. A focal lower uterine segment myometrial section scar is seen. The right ovary has dimensions of 3.2 x 1.7 x 2.7 cm. It's Doppler flow is normal with a resistive index of 0.64. A right ovarian slightly complex follicle cyst is seen measuring 1.4 x 1.4 x 1.0 cm. The left ovary dimensions are normal as well at 3.5 x 3.8 x 2.7 cm. It's Doppler flow was normal with resistive index of 0.55. There is a hypoechoic cystic area in the left ovary 2.2 x 2.3 x 1.9 cm in diameter. The patient reports previous left oophorectomy however left ovarian tissue is seen both on CT and ultrasound. IMPRESSION: scar. Bilateral follicle cysts. No free fluid. No myometrial mass seen. <Electronically signed by Dane Costello > 04/13/21 [id number]
[2021-04-13 11:17] VITALS: BP 113/55
== END 2021-04-13 12:21 | disposition home or self-care (01) ==
LOC: M ED 04:35
DX: N83.01 Follicular cyst of right ovary (principal); K76.0 Fatty (change of) liver, not elsewhere classified; Z90.721 Acquired absence of ovaries, unilateral; Z90.49 Acquired absence of other specified parts of digestive tract; Z84.2 Family history of other diseases of the genitourinary system
CPT/HCPCS: 36415; 74177; 76830; 76856; 80047; 80076; 81001; 83605; 83690; 84702; 85025; 93976; 96374; 96375; 99284; J1885; J2405; J2765; Q9967

== ENCOUNTER 2021-04-15 11:58 | Emergency (ER) | payer OTHER ==
[~2021-04-15] VITALS: Ht 175.3 cm; Wt 75.0 kg
--- OUTSIDE RECORDS SUMMARY | 2021-04-15 12:06 | CCD ---
Author Author [facility] Organization [facility] Address Unknown Phone Unavailable Care Team Providers Care Foster Care Worker Name Role Phone Nwogu, U John DO [...] Aiken MD Unavailable Unavailable LAROCK, Jie FERNANDA BODY STYLIST Unavailable Unavailable LAROCK, J FERNANDA BODY STYLIST Unavailable Unavailable LAROCK, J FERNANDA BODY STYLIST Unavailable Unavailable LAROCK, J FERNANDA BODY STYLIST Unavailable Unavailable LAROCK, J FERNANDA BODY STYLIST Unavailable Unavailable LAROCK, J FERNANDA BODY STYLIST Unavailable Unavailable LAROCK, J FERNANDA BODY STYLIST Unavailable Unavailable LAROCK, J FERNANDA BODY STYLIST Unavailable Unavailable LAROCK, J FERNANDA BODY STYLIST Unavailable Unavailable LAROCK, J FERNANDA BODY STYLIST Unavailable Unavailable LAROCK, J FERNANDA BODY STYLIST Unavailable Unavailable LAROCK, J FERNANDA BODY STYLIST Unavailable Unavailable LAROCK, J FERNANDA BODY STYLIST Unavailable Unavailable LAROCK, J FERNANDA BODY STYLIST Unavailable Unavailable LAROCK, J FERNANDA BODY STYLIST Unavailable Unavailable LAROCK, J FERNANDA BODY STYLIST Unavailable Unavailable LAROCK, J FERNANDA BODY STYLIST Unavailable Unavailable LAROCK, J FERNANDA BODY STYLIST Unavailable Unavailable LAROCK, J FERNANDA BODY STYLIST Unavailable Unavailable LAROCK, J FERNANDA BODY STYLIST Unavailable Unavailable LAROCK, J FERNANDA BODY STYLIST Unavailable Unavailable LAROCK, J FERNANDA BODY STYLIST Unavailable Unavailable SYMENOLuis A G LAURAOPHER PA [...] Sherrie SarabiaMira PA Unavailable Unavailable Chan, Sherrie Miar PA Unavailable Unavailable Chan, Sherrie Mira PA [...] Sage DO Unavailable Unavailable Robertshaw, Doug Unavailable [phone] Robertshaw, Doug Unavailable [phone] Robertshaw, Doug Unavailable [phone] Robertshaw, Doug Unavailable [phone] Robertshaw, Doug Unavailable [phone] Robertshaw, Doug Unavailable [phone] [facility] Unavailable Unavailable WOLFENDEN, T NINA PA Unavailable Unavailable WOLFENDEN, T NINA PA Unavailable Unavailable WOLFENDEN, T NINA PA Unavailable Unavailable WOLFENDEN, T NINA PA Unavailable Unavailable WOLFENDEN, T NINA PA Unavailable Unavailable WOLFENDEN, T NNIA PA Unavailable Unavailable WOLFENDEN, T NINA PA [...] is protected by Article 27-F of the [facility] Public Health law. If you continue you may have access to information: Regarding HIV / AIDS; Provided by facilities licensed or operated by the [facility] Office of Mental Health; or Provided by the [facility] Office for People With Developmental Disabilities. If such information is present, then the following [facility] mandated warning applies: This information has [...] law may result in a fine or senior care sentence or both. A general authorization for the release of medical or other information is NOT sufficient authorization for further disc losure. Allergies and Adverse Reactions Type Description Substance Reaction Status Data Source(s ) No Known Drug Allergies No Known Drug Allergies [facility] Propensity to adverse reactions BEE STING BEE STING ANAPHYLAXIS [facility] Food allergy COCONUT COCONUT ITCHING [facility] Food allergy WATERMELON WATERMELON ITCHING [facility] Encounters Encounter Providers Location Date Indications Data Source(s ) Emergency Attender: JENNY AKERS MDConsultant: Kathy dave MD 03/31/2021 06:31:00 PM EST - 03/31/2021 11:42:00 PM EST [facility] Patient discharged. Emergency Attender: NINA Doveerrer: Kathy Aiken MD EMERGENCY ROOM-ER 03/16/2021 09:26:00 AM EDT - 03/16/2021 12:20:00 PM EDT [facility] Patient discharged. Unknown [address] [address] 02/27/2021 12:00:00 AM EDT [facility] ([facility]) Outpatient Attender: John Johnson DOConsultant: Kathy barrientos MD 12/20/2020 01:15:00 PM EDT - 12/20/2020 01:15:00 PM EDT [facility] Outpatient Attender: John Johnson [facility] 12/09 01:15:00 PM EDT [facility] ([facility] Emergency Attender: TJ TURNERConsultant: Kathy dave MD 12/19/2020 01:35:00 PM EDT - 12/19/2020 04:10:00 PM EDT [facility] Patient discharged. Emergency Attender: JENNY AKERS MDConsultant: Kathy dave MD 12/18/2020 10:14:00 PM EDT - 12/19/2020 04:00:00 AM EDT [facility] Patient discharged. Emergency Attender: JOHN ANGULO MDConsultant: Rojas Aiken MD 12/02/2020 03:34:00 PM EDT - 12/02/2020 06:51:00 PM EDT [facility] Patient discharged. Outpatient [address] [address] 11/01/2020 12:00:00 AM EDT eCW1 ([facility]) Emergency Attender: BRIDGER BLANCO PAReferrer : Kathy Aiken MD EMERGENCY ROOM-EMERGENCY ROOM 10/17/2020 11:40:00 PM EDT - 10/17/2020 11:40:00 PM EDT [facility] Patient discharged. Outpatient Attender: Sage Anguloultant: Kathy meza MD 10/15/2020 07:45:00 AM EDT - 10/15/2020 12:24:00 PM EDT [facility] Patient discharged. Outpatient Attender: Sage SULLIVANonsultant: Kathy meza MD 10/10/2020 10:41:00 AM EDT - 10/10/2020 11:41:00 AM EDT [facility] Patient discharged. Outpatient Attender: Brent WALLER 10/06/19 09:54:06 AM EDT - 10/05/2020 10:33:25 AM EDT [facility] ([facility] ) Outpatient Attender: Sage Magañaant: Kathy meza MD 10/04/2020 01:18:13 PM EDT - 10/05/2020 09:05:00 AM EDT [facility] Patient discharged. Outpatient Attender: Doug Quevedo 09/26 03:22:43 PM EDT - 09/26/2020 04:56:57 PM EDT [facility] ([facility] ) Outpatient Attender: FERNANDA FORMAN NP 12/2020 03:06:47 PM EDT - 09/15/2020 04:55:09 PM EDT [facility] ([facility] ) Emergency Attender: TJ Skysultant: Kahty dave MD 08/27/2020 10:54:00 PM EDT - 08/28/2020 02:23:00 AM EDT [facility] Patient discharged. Outpatient Attender: Brent WALLER 08/28/19 01:59:07 PM EDT - 08/27/2020 02:35:23 PM EDT [facility] ([facility] ) Emergency Attender: JENNYToby AKERS MDConsultant: [facility] 08/14/2020 06:54:00 PM EDT - 08/14/2020 08:29:00 PM EDT [facility] Patient discharged. Outpatient Attender: Mira morales 07/10/2020 12:00:00 PM EST [facility] ([facility]) Outpatient Attender: Vernon WALLER 01:23:00 PM EST - 07/04/2020 01:23:00 PM EST [facility] Immunizations Vaccine Date Status Description Data Source(s) COVID-19 VACCINE Pfizer 02/20/2021 12:00:00 AM EDT completed [facility] Vaccine Series Complete: YESThis Data wa s Submitted to [facility]. COVID-19 VACCINE Pfizer 01/30/2021 12:00:00 AM EDT completed [facility] Vaccine Series Complete: NOThis Data was Submitted to [facility]. Medications Medication Brand Name Start Date Product Form Dose Route Admi nistrative Instructions Pharmacy Instructions Status Indications Reaction Description Data Source(s) Rocephin/Ceftriaxone Sodium Injection Per 250 MG 07/10 12:00:00 AM EST completed [facility] Medication administered onsite No Active Medications 07/10/2020 12:00:00 AM EST completed [facility] ([facility] doxycycline hyclate 100 MG Oral Capsule Doxycycline Hyclate 07/10/2020 12:00:00 AM EST active [facility] ([facility], [facility]) Insurance Providers Payer name Policy type / Coverage type Policy ID Covered democrat ID Covered democrat's relationship to viveros Policy Viveros Plan Information [facility] [id number] [facility] [id number] [facility] [id number] [facility] Health Plan / [id number] Self [id number] Needs Workers Comp Information [employer] Health Claim [id number] Employee [id number] [facility] [id number] 18 [id number] [facility] [id number] 01 [id number] [facility] [id number] WI2 [id number] [facility] UNAVAILABLE 01 UNAVAILABLE [facility] [id number] H [id number] [facility] [id number] [facility] [id number] H [id number] [facility] [id number] 18 [id number] [facility] [id number] S [id number] [facility] [id number] 01 [id number] Problems, Conditions, and Diagnoses Code Display Name Description Problem Type Effective Dates Data Source(s) J85401 Personal history of nicotine dependence Personal history of nicotine dependence Diagnosis 03/31/2021 06:31:00 PM [facility] Z8742 Personal history of other diseases of th e female genital tract Personal history of other diseases of the female genital tract Diagnosis 03/31/2021 06:31:00 PM [facility] R1030 Lower abdominal pain, unspecified Lower abdomina l pain, unspecified Diagnosis 03/31/2021 06:31:00 PM [facility] R102 Pelvic and perineal pain Pelvic and perineal pain Diag nosis 03/31/2021 06:31:00 PM [facility] Z79.899 Other half-way (current) drug therapy O THER LONGTERM (CURRENT) DRUG THERAPY Diagnosis 03/16[facility] 09:[facility] joint terminal attack controller (current) use of non-steroidal anti-inflammatories (NSAID) ANALYSIS ANALYST (CURRENT) USE OF NON-STEROIDAL NON-INFLA Diagnosis 03/16/20 09:26:00 AM [facility] Z90.49 Acquired absence of other specified part s of digestive tract ACQUIRED ABSENCE OF OTHER SPECIFIED PARTS OF DIGES Diagnosis 03/16/2021 09:26:0 0 AM [facility] F17.210 Nicotine dependence, cigarettes, uncompl icated NICOTINE DEPENDENCE, CIGARETTES, UNCOMPLICATED Diagnosis 03/16/2021 09:26:00 AM [facility] N83.01 FOLLICULAR CYST OF RIGHT OVARY FOLLICULAR CYST OF RIGH T OVARY Diagnosis 03/16/2021 09:26:00 AM [facility] R10.31 Right lower quadrant pain RIGHT LOWER QUADRANT PAIN Di agnosis 03/16/2021 09:26:00 AM [facility] D11337 Nicotine dependence, cigarettes, uncompl icated Nicotine dependence, cigarettes, uncomplicated Diagnosis 12/19/2020 01:35:00 PM [facility] Q49501 Unspecified ovarian cyst, left side Unspecified ovarian cyst, left side Diagnosis 12/19/2020 01:35:00 PM [facility] N9489 Other specified conditions a ssociated with female genital organs and menstrual cycle Other specified conditions associated wi th female genital organs and menstrual cycle Diagnosis 12/18/2020 10:14:00 PM [facility] R1032 Left lower quadrant pain Left lower quadrant pain Diag nosis 12/18/2020 10:14:00 PM [facility] W78641 Unspecified place in unspeci fied non-institutional (private) residence as the place of occurrence of the external cause Unspecified place in unspecified non-institutional (private) residence as the place of occurrence of the external cause Diagnosis 12/02/2020 03:34:00 PM [facility] G167MJR Contact with other sharp obj ect(s), not elsewhere classified, initial encounter Contact with other sharp object(s), not elsewhere classified, initial encounter Diagnosis 12/02/2020 03:34:00 PM [facility] Z23 Encounter for immunization Encounter for immunization Diagnosis 12/02/2020 03:34:00 PM [facility] K73219 Nicotine dependence, other tobacco produ ct, uncomplicated Nicotine dependence, other tobacco product, uncomplicated Diagnosis 12/02 03:34:00 PM [facility] [id number] Abrasion, right foot, initial encounter Abrasion, right foot, initial encounter Diagnosis 12/02/2020 03:34:00 PM [facility] [id number] Unspecified injury of right foot, initia l encounter Unspecified injury of right foot, initial encounter Diagnosis 12/02/2020 03:34:00 PM [facility] G89.18 Other acute postprocedural pain OTHER ACUTE POST PROCEDURAL PAIN Diagnosis 10/17/2020 11:40:00 PM [facility] N13.2 Hydronephrosis with renal and ureteral c alculous obstruction HYDRONEPHROSIS WITH RENAL AND URETERAL CALCULOUS O Diagnosis 01/2021 11:40:00 PM [facility] R10.2 Pelvic and perineal pain PELVIC AND PERINEAL PAIN Diag nosis 10/17/2020 11:40:00 PM [facility] I49669 Nicotine dependence, unspecified, uncomp licated Nicotine dependence, unspecified, uncomplicated Diagnosis 10/15/2020 07:45:00 AM EDT [facility] G8929 Other chronic pain Other chronic pain Diagnosis 11/2020 07:45:00 AM EDT [facility] N809 Endometriosis, unspecified Endometriosis, unspecified Diagnosis 10/15/2020 07:45:00 AM EDT [facility] 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) Diagnosis 10/15/2020 07:45:00 AM EDT [facility] N7011 Chronic salpingitis Chronic salpingitis Diagnosis 0 10/15/2020 07:45:00 AM [facility] Z1152 ENCOUNTER FOR SCREENING FOR COVID-19 ENCOUNTER F OR SCREENING FOR COVID-19 Diagnosis 10/10/2020 10:41:00 AM [facility] J75905 Encounter for other preprocedural examin ation Encounter for other preprocedural examination Diagnosis 10/05/2020 08:15:00 AM EDT [facility] J68590 Elevated white blood cell count, unspeci fied Elevated white blood cell count, unspecified Diagnosis 08/27/2020 10:54:00 PM EDT [facility] R7402 Elevation of levels of lactic acid dehyd rogenase [LDH] Elevation of levels of lactic acid dehydrogenase [LDH] Diagnosis 08/27/2020 10:54:00 PM E [facility] B349 Viral infection, unspecified Viral infection, unspecif ied Diagnosis 08/27/2020 10:54:00 PM EDT [facility] R1012 Left upper quadrant pain Left upper quadrant pain Diag nosis 08/27/2020 10:54:00 PM EDT [facility] R1031 Right lower quadrant pain Right lower quadrant pain Di agnosis 08/14/2020 06:54:00 PM EDT [facility] N94.9 [id number] Adnexal cyst Problem 11/01/2020 12:00:00 AM EDT eCW1 ([facility]) Surgeries/Procedures Procedure Description Date Indications Data Source(s) OFFICE OUTPATIENT NEW 30 MINUTES 12/20/2020 12:00:00 A M EDT [facility] ([facility]) Therapeutic, Prophylactic Or Diagnostic Injection Subq/Im 07/10/2020 12:00:00 AM EST [facility] ([facility]) Results ID Date Data Source [id number] 04/02/2021 06:34:00 AM EST [facility] [address] [place] [address] PHONE: [phone] FAX: [phone] Name .................. : JOCELINE GARCIA Chan Acct Number.................. : [id number] ROOM. ................. : [address] Number ................... : [id number] Stay type ............. : E/R Discharge Date......... ... : 03/31/21 Admit Date ......... : 03/31/21 Admit Phys .................... : COONEYNORM Date of ....... : 1995 Family Phys ................... : JOCELYNE VEGA Phone .................. : [phone] Age ................................ : 26 Film# .................. .:[id number] Sex ................................. : F Unsigned transcriptions are preliminary reports and do not represent a medical or legal document PELVIC 67078 COMPLETE:03/31/21 22:54 ADB 54394 Reason(s): recent dx of pelvic congestion syndrome [...] 04/02/21 06:34, SCB Page 1 of 2 [place] [address] PHONE: [phone] FAX: [phone] Name .................. : JOCELINE GARCIA Chan Acct Number.................. : [id number] ROOM. ................. : TR-03 MR Number ................... : [id number] Stay type ............. : E/R Discharge Date......... ... : 03/31/21 Admit Date ......... : 03/31/21 Admit Phys .................... : COONEYNORM Date of ....... : 1995 Family Phys ................... : JOCELYNE VEGA Phone .................. : [phone] Age ................................ : 26 Film# .................. .:[id number] Sex ................................. : F Unsigned transcriptions are preliminary reports and do not represent a medical or legal document PELVIC 13003 COMPLETE:03/31/21 22:54 ADB 35489 Reason(s): recent dx of pelvic congestion syndrome Transcribe Initials: RIANNA , Transcribe Date: 04/01/21 11:49, Dictation Date: Copy for: EMERGENCY DEPT via mode Copy for: 710 MED REC DISCHARGED Page 2 of 2 Name Value Range Interpretation Code Description Data Rachel rce(s) Supporting Document(s) ID Date Data Source [id number] 04/02/2021 06:34:00 [place] [address] PHONE: [phone] FAX: [phone] Name .................. : JOCELINE Nguyễn Acct Number.................. : [id number] ROOM. ................. : TR-03 Number ................... : [id number] Stay type ............. : E/R Discharge Date......... ... : 03/31/21 Admit Date ......... : 03/31/21 Admit Phys .................... : COONEYNORM Date of ....... : 1995 Family Phys ................... : JOCELYNE GI Phone .................. : [phone] Age ................................ : 26 Film# .................. .:[id number] Sex ................................. : F Unsigned transcriptions are preliminary reports and do not represent a medical or legal document CT ABD & PELVIS W/ IV ONLY 73860 COMPLETE:03/31/21 21:07 MWB 42041 Reason(s): Abdominal Pain CT ABDOMEN AND PELVIS [...] No free air. Page 1 of 2 [facility] [address] [place] [address] PHONE: [phone] FAX: [phone] Name .................. : JOCELINE Nguyễn Acct Number.................. : [id number] ROOM. ................. : TR-03 MR Number ................... : [id number] Stay type ............. : E/R Discharge Date......... ... : 03/31/21 Admit Date ......... : 03/31/21 Admit Phys .................... : COONEYNORM Date of ....... : 1995 Family Phys ................... : JOCELYNE VEGA Phone .................. : [phone] Age ................................ : 26 Film# .................. .:[id number] Sex ................................. : F Unsigned transcriptions are preliminary reports and do not represent a medical or legal document CT ABD & PELVIS W/ IV ONLY 73756 COMPLETE:03/31/21 21:07 MWB 40202 Reason(s): Abdominal Pain NODES/RETROPERITONEUM: No adenopathy. No [...] rce(s) Supporting Document(s) ID Date Data Source [id number] 03/31/2021 06:31:00 PM EST [facility] 1 OrderSheet [facility] Emergency Department [address] [place] [address] Phone #: [phone]- [phone] 03/31/2021 18:26 Patient: ZARIA CAR Sex: F [...] 18:49 Vinita Akers, Jenny MD; Bhavna Moore mobile phlebotomist, Deric ER R.N. [id number] Serum Qual STAT 18:36 03/31/2021 18:38 Oswald Moore Norma MD; Bhavna GriffithDIAGNOSTIC STUDY ORDERSOrder Description Priority Entered Acknowledged InitialedCT Abd PEL W/ IV STAT 19:49 03/31/2021 Ack'd: 19:58 20:09 BurnhamContrast Only Jenny Akers MD; Bhavna Moore mobile phlebotomist, Deric ER(Oxygen?(No)) R.NAzul Tech1(IV?(Yes)) NOTES: periumbilical and rlq pain Reason for Study: Abdominal PainUS Pelvis STAT 21:17 03/31/2021 Ack'd: 21:17 22:20 Yolanda,(Oxygen?(No)) Jenny Akers MD; Bhavna Moore R.N. Reason for Study: recent dx of pelvic congestion syndromeMEDICATION/IV/DRIP/FLUID ORDERS 2 OrderSheet [facility] Emergency Department [address] [place] [address] Phone #: ext- [phone] 03/31/2021 18:26 Patient: ZARIA CAR Sex: F [...] IVP 50 21:18 03/31/2021 Ack'd: 22:06 22:07 [facility] ([place] Jenny Akers MD; Bhavna Moore R.NAzulMEDICATION) R.N.GENERAL ORDERSOrder Description Priority Entered Acknowledged Initialed[Electronically signed by Jenny Akers MD (23:38 03/31/2021)][Electronically signed by Vania Guerrero (23:41 03/31/2021)][Electronically locked by Vania Guerrero (23:41 03/31/2021)] Name Value Range Interpretation Code Description Data Rachel rce(s) Supporting Document(s) ID Date Data Source [id number] 03/31/2021 06:31:00 PM EST [facility] 1 Medication Reconciliation Report [facility] Emergency Department [address] [place] [address] Phone #: ext- [phone] 03/31/2021 18:26 Patient: [...] rce(s) Supporting Document(s) ID Date Data Source [id number] 03/31/2021 06:31:00 PM EST [facility] 1 Medication Administration Record [facility] Emergency Department [address] [place] [address] Phone #: ext- [phone] 03/31/2021 18:26 Patient: ZARIA CAR Sex: F : 1995 Age: 26yWeight: 74.8 kgHeight/Length: 69 inBMI: 24.4ALLERGIES: No Known Drug Allergy Date/Time Medication Administered Medication OrderedStart NS [IV] IV NS 1000 mL Bolus : Bolus [id number] 03/31/2021 Dose: IV Fluids mL (X1)Bhavna Moore [...] rce(s) Supporting Document(s) ID Date Data Source [id number] 03/31/2021 06:31:00 PM EST [facility] 1 General Instructions [facility] Emergency Department [address] [place] [address] Phone #: ext- [phone] 03/31/2021 18:26 Patient: [...] of Abdominal Pain (Female) 2 General Instructions [facility] Emergency Department [address] [place] [address] Phone #: ext- [phone] 03/31/2021 18:26 Patient: [...] for taking these medicines. 3 General Instructions [facility] Emergency Department [address] [place] [address] Phone #: [phone]- [phone] 03/31/2021 18:26 Patient: ZARIA CAR Sex: F [...] begin to improve in thenext 24 hours.Call [phone] if any of these occur: Trouble breathing Confusion Fainting or loss of consciousness Rapid heart rate 4 General Instructions [facility] Emergency Department [address] [place] [address] Phone #: ext- [phone] 03/31/2021 18:26 Patient: [...] or water and you are getting dehydrated [id number] [employer]. All rights reserved. This information is not intended as a substitute for professional medical care. Alwaysfollow your healthcare professional's instructions. You have been given the following additional information: Abdominal Pain, Unknown Cause, (Female) Do not work today, tomorrow.(Electronically signed by Jenny Akers MD 03/31/2021 23:38) Name Value Range Interpretation Code Description Data Rachel rce(s) Supporting Document(s) ID Date Data Source [id number] 03/31/2021 06:31:00 PM EST [facility] 1 Clinical Report - Nurses [facility] Emergency Department [address] [place] [address] Phone #: [phone]- [phone] 03/31/2021 18:26 Patient: ZARIA CAR Sex: F [...] normal but she feels she is constipated.).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18:31 03/31/21 Lulú Mckeon R.N. 2 Clinical Report - Nurses [facility] Emergency Department [address] [place] [address] Phone #: ext- [phone] 03/31/2021 18:26 Patient: [...] normal limits. 3 Clinical Report - Nurses [facility] Emergency Department [address] [place] [address] Phone #: [phone]- [phone] 03/31/2021 18:26 Patient: ZARIA CAR Sex: F [...] Moore R.N. 4 Clinical Report - Nurses [facility] Emergency Department [address] [place] [address] Phone #: ext- [phone] 03/31/2021 18:26 Patient: ZARIA CAR Sex: F : 1995 Age: 26y 19:30 03/31/21. BP: 113/72. MAP: 85. HR: 82. RR: 17. O2 saturation: 99%. --19:57 03/31/21 Formerly [facility] Tech, Deric, ER Tech1 Patient transported to [place] by wheelchair with mask and radiology special procedure tech. --20:11 03/31/21 [facility] mobile phlebotomist, Deric, ER Tech1 Patient returned from [place] by wheelchair with mask and radiology special procedure tech. --20:27 03/31/21 [facility]ly [facility] Tech Deric ER Tech1 21:01 [...] from radiology by wheelchair with mask and radiology special procedure tech. --22:49 03/31/21 Sarah Atkins R.N. 22:49 03/31/2021 Fentanyl IVP Response: symptoms have improved the patient feels better. --22:49 03/31/21 Sarah Atkins R.N.DISPOSITION / DISCHARGE 23:34 03/31/21. BP: 130/79. HR: 73. RR: 16. O2 saturation: 98%. Temp: 98.0 F. Pain level now 08/18. --23:34 03/31/21 Vania Guerrero 5 Clinical Report - Nurses [facility] Emergency Department [address] [place] [address] Phone #: ext- [phone] 03/31/2021 18:26 Patient: ZARIA CAR Sex: F : 1995 Age: 26y 23:35 03/31/2021 Site #1 removed upon discharge. Catheter intact. Bandaid applied. --23:35 03/31/21 Vania Guerrero Condition at departure: improved and stable. No learning barriers present. Discharge instructions provided and reviewed with the patient. Reviewed warnings. Reviewed medication(s). Reviewed referrals. Work note given. Patient verbalized understanding. Written instructions provided in Scottish. The patient was discharged by the physician. She was discharged home and unaccompanied at time of discharge. She left ambulatory and via private vehicle. Java Security Architect driving. --23:40 03/31/21 Vania Guerrero [place] Coma Scale: 15- eyes open- spontaneous (4); best verbal response- oriented (5); best motor response- obeys commands (6). --23:41 03/31/21 Vania Guerrero Departure time: 23:41 03/31/2021. --23:41 03/31/21 Vania Guerrero.Locked/Released at 03/31/2021 23:41 by Vania Guerrero Name Value Range Interpretation Code Description Data Rachel rce(s) Supporting Document(s) ID Date Data Source [id number] 03/31/2021 06:31:00 PM EST [facility] 1 Clinical Report - Physicians/Mid Levels [facility] Emergency Department [address] [place] [address] Phone #: ext- [phone] 03/31/2021 18:26 Patient: ZARIA CAR Sex: F [...] Temp: 98.7 F. 2 Clinical Report - Physicians/[facility] Levels [facility] Emergency Department [address] [place] [address] Phone #: ext- [phone] 03/31/2021 18:26 Patient: ZARIA CAR Sex: F [...] congestion syndromeTRANSPORTATION: WC IV? O2? Oxygen?(No) Room: [facility] W/ IV Contrast Only: (ABILIO: 03/31/2021 [...] 450) 3 Clinical Report - Physicians/Mid Levels [facility] Emergency Department [address] [place] [address] Phone #: ext- [phone] 03/31/2021 18:26 Patient: ZRAIA CAR Sex: F : 1995 Age: 26y [...] Male GFR Interprentation 20-49 yrs >60 mL/min Slbmmu02-30 yrs >56 mL/min Normal 60-69 yrs >49 mL/min Normal 70-79yrs>42 mL/min Normal 80 and above >35 mL/min Normal Female GFRInterpretation 20-39 yrs >60 mL/min Normal 40-49 yrs >58 mL/minNormal 50-59 yrs >51 mL/min Normal 60-69 yrs >45 mL/min Bdlzvn79-12 yrs >39 mL/min Normal 80 and above >32 mL/min NormalLactic Acid: (ABILIO: 03/31/2021 18:51) ( [facility] 03/31/2021 19:31) Final results Test Result Flag Units (Reference) LACTIC ACID 1.4 MMOL/L (0.2 - 2.2)Lipase: (ABILIO: 03/31/2021 18:51) ( [facility] 03/31/2021 19:36) Final results Test Result Flag Units (Reference) LIPASE 26 U/L (13 - 60) 4 Clinical Report - Physicians/Mid Levels [facility] Emergency Department [address] [place] [address] Phone #: ext- [phone] 03/31/2021 18:26 Patient: [...] NEGATIVE (NORMAL: NEGAT { KIT LOT # [id number] ){ KIT EXP DATE 06-10-22 ){ PROCEDURAL [...] pain meds. pt was instructed to f/uwith industrial plant custodian beginning of this week. pt voiced understanding of all instructions. Patient/family counseled. Disposition: Discharged. Condition: good and stable.CLINICAL IMPRESSION Right lower quadrant, suprapubic and left lower quadrant abdominal pain.No acute abdominal pain. Possible pelvic congestion syndrome. 5 Clinical Report - Physicians/Mid Levels [facility] Emergency Department [address] [place] [address] Phone #: ext- [phone] 03/31/2021 18:26 [id number] Sex: F : 1995 Age: 26yINSTRUCTIONS Do [...] rce(s) Supporting Document(s) ID Date Data Source [id number] 03/31/2021 07:42:00 PM EST [facility] Name Value Range Interpretation Code Description Data [facility] rce(s) Supporting Document(s) CBC W/AUTOMATED DIFF [facility] COMPLETE BLOOD COUNT Leukocytes [#/volume] in Blood by Automated count 6.7 10^3/uL 4.2 - 1 1.0 [facility] Erythrocytes [#/volume] in Blood by Automated count 4.26 10^6/uL 4. 20 - 5.40 [facility] Hemoglobin [Mass/volume] in Blood 13.8 g/dL 12.0 - 16.0 [facility] Hematocrit [Volume Fraction] of Blood by Automated count 41.2 % 3 7.0 - 47.0 [facility] Erythrocyte mean corpuscular volume [Entitic volume] by Auto mated count 96.7 fL 81.0 - 101 [facility] Erythrocyte mean corpuscular hemoglobin [Entitic mass] by Automated count 32.4 pg 27.0 - 34.0 [facility] Erythrocyte mean corpuscular hemoglobin concentration [Mass/volume] by Automated count 33.5 g/dL 31.0 - 36.0 [facility] Erythrocyte distribution width [Ratio] by Automated count 12.3 % 11.5 - 14.5 [facility] Platelets [#/volume] in Blood by Automated count 262 10^3/uL 150 - 45 0 [facility] Platelet mean volume [Entitic volume] in Blood by Automated count 10.4 fL 7.4 - 10.4 [facility] Neutrophils/100 leukocytes in Blood by Automated count 56.7 % 37. 0 - 80.0 [facility] Lymphocytes/100 leukocytes in Blood by Manual count 33.4 % 25.0 - 40.0 [facility] Monocytes/100 leukocytes in Blood by Automated count 7.7 % 3.0 - 8.0 [facility] Eosinophils/100 leukocytes in Blood by Automated count 1.8 % 0.0 - 7.0 [facility] Basophils/100 leukocytes in Blood by Automated count 0.3 % 0.0 - 2.5 [facility] %IG 0.1 % 0.0 - 0.0 H [facility] al %NRBC 0.0 % 0.0 - 0.0 [facility] al Neutrophils [#/volume] in Blood by Automated count 3.82 10^3/uL 2.00 - 6.90 [facility] Lymphocytes [#/volume] in Blood by Automated count 2.25 10^3/uL 0.60 - 3.40 [facility] Monocytes [#/volume] in Blood by Automated count 0.52 10^3/uL 0.00 - 0.90 [facility] Eosinophils [#/volume] in Blood by Automated count 0.12 10^3/uL 0.00 - 0.70 [facility] Basophils [#/volume] in Blood by Automated count 0.02 10^3/uL 0.00 - 0.20 [facility] #IG 0.01 10^3/uL 0.00 - 0.10 [facility] ospital #NRBC 0.00 10^3/uL 0.00 - 0.00 [facility] ospital MANUAL DIFF NOT INDICATED [facility] RBC MORPH NOT INDICATED [facility] Ho spital ID Date Data Source [id number] 03/31/2021 07:42:00 PM EST [facility] Name Value Range Interpretation Code Description Data Rachel rce(s) Supporting Document(s) COMPREHENSIVE METABOLIC PANEL [facility] COMPREHENSIVE METABOLIC PANEL Sodium [Moles/volume] in Serum or Plasma 140 mEq/L 134 - 153 [facility] Potassium [Moles/volume] in Serum or Plasma 4.0 mEq/L 3.6 - 5.0 [facility] Chloride [Moles/volume] in Serum or Plasma 101 mEq/L 98 - 107 [facility] Carbon dioxide, total [Moles/volume] in Serum or Plasma 27 MEQ/L 22 - 30 [facility] Glucose [Mass/volume] in Serum or Plasma 103 MG/DL 70 - 99 H [facility] BUN 7 MG/DL 7 - 21 [facility] al Creatinine [Mass/volume] in Serum or Plasma 0.6 MG/DL 0.7 - 1.5 L [facility] BUN/CREAT 12 8 - 27 [facility] Protein [Mass/volume] in Serum or Plasma 7.2 G/DL 6.3 - 8.2 [facility] Albumin [Mass/volume] in Serum or Plasma 4.8 G/DL 3.9 - 5.0 [facility] Globulin [Mass/volume] in Serum by calculation 2.4 GM/DL 2.4 - 3.2 [facility] A/G RATIO 2.0 0.8 - 2.0 [facility] Calcium [Mass/volume] in Serum or Plasma 9.9 MG/DL 8.4 - 10.2 [facility] Bilirubin.total [Mass/volume] in Serum or Plasma <0.7 MG/DL 0.2 - 1.3 [facility] Alkaline phosphatase [Enzymatic activity/volume] in Serum or Plasma 88 U/L 38 - 126 [facility] Aspartate aminotransferase [Enzymatic activity/volume] in Serum or Plasma 13 U/L 5 - 40 [facility] Alanine aminotransferase [Enzymatic activity/volume] in Seru m or Plasma 7 U/L 7 - 56 [facility] Anion gap 3 in Serum or Plasma 12.0 mmol/L 8.0 - 16.0 [facility] AGE 26 yrs [facility] NON-AA GFR >60 mL/min [facility] ital AFR AMER GFR >60 mL/min [facility] Ho spital Male GFR In terprentation [...] >32 mL/min Normal ID Date Data Source [id number] 03/31/2021 07:36:00 PM [facility] Name Value Range Interpretation Code Description Data Rachel rce(s) Supporting Document(s) Lipase [Enzymatic activity/volume] in Serum or Plasma 26 U/L 13 - 60 [facility] ID Date Data Source [id number] 03/31/2021 07:31:00 PM [facility] Name Value Range Interpretation Code Description Data Rachel rce(s) Supporting Document(s) Lactate [Moles/volume] in Serum or Plasma 1.4 MMOL/L 0.2 - 2.2 [facility] ID Date Data Source [id number] 03/31/2021 07:30:00 PM [facility] Name Value Range Interpretation Code Description Data Rachel rce(s) Supporting Document(s) HCG SERUM QUAL NEGATIVE NORMAL: NEGATIVE [facility] HCG SERUM QL REENTER NEGATIVE NORMAL: NEGATIVE [facility] { KIT LOT # [id number] ){ KIT EXP DATE 06-10-22 ){ PROCEDURAL CONTROL VALID ) ID Date Data Source [id number] 03/31/2021 07:59:00 PM [facility] Name Value Range Interpretation Code Description Data Rachel rce(s) Supporting Document(s) UA REFLEX TO UA CULTURE [facility] yellow NORMAL: Yellow [facility] CLARITY hazy NORMAL: Clear [facility] sp[facility] Specific gravity of Urine by Test strip 1.020 1.001 - 1.030 [facility] pH 6 5 - 9 [facility] Glucose [Mass/volume] in Urine by Test strip NORM NORMAL: Negat [facility] Bilirubin.total [Presence] in Urine by Test strip NEG NORMAL: Negative [facility] Ketones [Presence] in Urine by Test strip 5 NORMAL: Negative A [facility] Protein [Mass/volume] in Urine by Test strip 15 NORMAL: Negat [facility] Nitrite [Presence] in Urine by Test strip NEG NORMAL: Negative [facility] BLOOD NEG NORMAL: Negative [facility] Leukocyte esterase [Presence] in Urine by Test strip NEG JENNY L: Negative [facility] Urobilinogen [Mass/volume] in Urine by Test strip NOR less nathalia n 1.0 mg/dL [facility] MICROSCOPIC See Below [facility] ital WBC 0 - 1 NORMAL: NONE SEEN [facility] EPITHELIAL MODERATE NORMAL: NONE SEEN A [facility] Mucus [Presence] in Urine sediment by Light microscopy 1+ NOR MAL: NONE SEEN [facility] ID Date Data Source [id number] 03/18/2021 08:23:00 AM EST [facility] Name Value Range Interpretation Code Description Data Rachel rce(s) Supporting Document(s) SARS coronavirus 2 RNA [Presence] in Res piratory specimen by JUAN with probe detection NEGATIVE [facility] This lab was ordered by [facility] a nd reported by [facility]. ID Date Data Source [id number] 03/16/2021 12:02:00 PM EDT [facility] [...] rce(s) Supporting Document(s) ID Date Data Source [id number] 03/16/2021 09:27:00 AM EDT [facility] ital TSYSORDER [id number] Name Value Range Interpretation Code Description Data Rachel rce(s) Supporting Document(s) URINE COLOR. DARK YELLOW [facility] URINE APPEARANCE CLEAR [facility] l URINE GLUCOSE (UA) NEGATIVE mg/dL NEGATIVE [facility] URINE BILIRUBIN NEGATIVE NEGATIVE [facility] URINE KETONE 5(TRACE) mg/dL NEGATIVE [facility] SPECIFIC GRAVITY,URINE >= 1.030 1.005-1.030 [facility] URINE BLOOD NEGATIVE NEGATIVE [facility] PH,URINE 5.5 5.0-9.0 [facility] URINE PROTEIN NEGATIVE mg/dL NEGATIVE [facility] tianna URINE UROBILINOGEN NORMAL(0.2-1) mg/dL 0-1 [facility] URINE NITRATE NEGATIVE NEGATIVE [facility] URINE LEUKOCYTE ESTERASE NEGATIVE NEGATIVE [facility] ID Date Data Source [id number] 03/16/2021 09:18:00 AM EDT [facility] l TSYSORDER [id number] Name Value Range Interpretation Code Description Data [facility] rce(s) Supporting Document(s) HCG URINE NEGATIVE NEGATIVE [facility] ID Date Data Source [id number] 03/16/2021 09:37:00 AM EDT [facility] l TSYSORDER [id number] Name Value Range Interpretation Code Description Data [facility] rce(s) Supporting Document(s) LACTIC ACID 0.6 mmol/L 0.4-2.0 [facility] ID Date Data Source [id number] 03/16/2021 09:37:00 AM EDT [facility] l TSYSORDER [id number] Name Value Range Interpretation Code Description Data Rachel rce(s) Supporting Document(s) GLUCOSE 92 mg/dL 74-106 [facility] BLOOD UREA NITROGEN 9 mg/dL 7-18 [facility] ital CREATININE 0.74 mg/dl 0.55-1.02 [facility] SODIUM 139 mmol/L 136-145 [facility] POTASSIUM 3.4 mmol/L 3.5-5.1 L [facility] CHLORIDE 100 mmol/L 98-107 [facility] CO2 28 mmol/L 21-32 [facility] CALCIUM 9.4 mg/dL 8.5-10.1 [facility] ANION GAP 11.0 mmol/L 5-12 [facility] GLOMERULAR FILTRATION RATE >90 mL/min [facility] GFR IS CALCULATED IN mL/min/1.73m2 JENNY L FUNCTION: >90MILDLY DECREASED: 60-89MILDY TO MODERATELY DECREASED: 45-59 MODERATELY TO SEVERELY DECREASED: 30-44SEVERELY DECREASED: 15-29RENAL FAILURE: <15 AST 12 U/L 15-37 L [facility] ALT 19 U/L 14-59 [facility] ALKALINE PHOSPHATASE 74 U/L 46-116 [facility] pital TOTAL BILIRUBIN 0.4 mg/dL 0.2-1.0 [facility] TOTAL PROTEIN 8.2 g/dL 6.4-8.2 [facility] ALBUMIN 4.4 gm/dL 3.4-5.0 [facility] ID Date Data Source [id number] 03/16/2021 09:22:00 AM EDT [facility] TSYSORDER [id number] Name Value Range Interpretation Code Description Data [facility](s) Supporting Document(s) WHITE BLOOD COUNT 7.8 K/mm3 4.0-10.0 [facility] al RED BLOOD COUNT 4.22 M/mm3 4.00-5.50 [facility] HEMOGLOBIN 13.6 gm/dL 12.0-16.0 [facility] HEMATOCRIT 40.1 % 36.0-48.8 [facility] MEAN CELL VOLUME 95.0 fl 80-96 [facility] MEAN CORPUSCULAR HEMOGLOBIN 32.2 pg 27.0-31.0 H [facility] MEAN CORPUSCULAR HGB CONC 33.9 g/dl 32.0-36.0 [facility] RED CELL DISTRIBUTION WIDTH 12.2 % 10.0-14.5 [facility] PLATELET COUNT 240 K/mm3 172-450 [facility] MEAN PLATELET VOLUME 10.4 fl 9.0-13.0 [facility] pital GRAN % 64.7 % 50-80.0 [facility] IG% 0.1 % 0.0-0.2 [facility] LYMPH % 26.1 % 25.0-50.0 [facility] MONO % 7.4 % 2.0-10.0 [facility] EOS % 1.3 % 0-5.0 [facility] BASO % 0.4 % 0.0-2.0 [facility] GRAN # 5.0 K/mm3 2.0-8.00 [facility] IG# 0.0 K/mm3 0.0-0.2 [facility] LYMPH # 2.0 K/mm3 1.0-5.0 [facility] MONO # 0.6 K/mm3 0.10-1.20 [facility] EOS # 0.1 K/mm3 0.0-0.5 [facility] BASO # 0.0 K/mm3 0.0-0.2 [facility] ID Date Data Source [id number] 02/06/2021 05:14:00 PM EDT [facility] Name Value Range Interpretation Code Description Data Rachel rce(s) Supporting Document(s) SARS coronavirus 2 RNA [Presence] in Res piratory specimen by JUAN with probe detection NEGATIVE [facility] This lab was ordered by [facility] a nd reported by [facility]. ID Date Data Source [id number] 10/29/2020 09:42:00 [place] [address] OPERATIVE SUMMARYNAME: JOCELINE Nguyễn DATE OF : 1995ATTENDING PHYS: SAGE GOMEZ DO DATE: 10/15/20 MR#: [id number] OF PROCEDURE: 10/15/2020HISTORY:Zaria is a 25-year-old female [...] was placed in the bladder for 1 [place] [address] OPERATIVE SUMMARYNAME: JOCELINE Nguyễn DATE OF : 1995ATTENDING PHYS: SAGE GOMEZ DO DATE: 10/15/20 MR#: [id number]. We then turned our attention to the [...] rce(s) Supporting Document(s) ID Date Data Source [id number] 12/20/2020 01:44:00 PM EDT [facility] ([facility]) Name Value Range Interpretation Code Description Data Rachel rce(s) Supporting Document(s) Pelvic Laboratory test result [facility] ([facility]) ID Date Data Source [id number] 12/19/2020 07:24:00 PM EDT [facility] [address] [place] [address] PHONE: [phone] FAX: [phone] Name .................. : JOCELINE DOANSLAVA Nguyễn Acct Number.................. : [id number] ROOM. ................. : TR-06 Number ................... : [id number] Stay type ............. : E/R Discharge Date......... ... : 12/19/20 Admit Date ......... : 12/19/20 Admit Phys .................... : YUE WILKINS Date of ....... : 1995 Family Phys ................... : JOCELYNE VEGA Phone .................. : [phone] Age ................................ : 25 Film# .................. .:[id number] Sex ................................. : F Unsigned transcriptions are preliminary reports and do not represent a medical or legal document TRANSVAGINAL(NON OB) [id number] COMPLETE:12/19/20 15:04 KNB 42640 Reason(s): left pelvic pain, 5.8 cm ovarian [...] 12/19/20 19:24, JWS Page 1 of 2 [facility] [address] [facility] [place] [address] PHONE: [phone] FAX: [phone] Name .................. : JOCELINE Nguyễn Acct Number.................. : [id number] ROOM. ................. : TR-06 MR Number ................... : [id number] Stay type ............. : E/R Discharge Date......... ... : 12/19/20 Admit Date ......... : 12/19/20 Admit Phys .................... : YUE WILKINS Date of ....... : 1995 Family Phys ................... : JOCELYNE VEGA Phone .................. : [phone] Age ................................ : 25 Film# .................. .:[id number] Sex ................................. : F Unsigned transcriptions are preliminary reports and do not represent a medical or legal document TRANSVAGINAL(NON OB) [id number] COMPLETE:12/19/20 15:04 KNB 28703 Reason(s): left pelvic pain, 5.8 cm ovarian cyst on CT 12-18-20 Transcribe Initials: RIANNA , Transcribe Date: 12/19/20 18:40, Dictation Date: Copy for: EMERGENCY DEPT via mode Copy for: 710 MED REC DISCHARGED Page 2 of 2 Name Value Range Interpretation Code Description Data Rachel rce(s) Supporting Document(s) ID Date Data Source [id number] 12/19/2020 01:35:00 PM EDT [facility] 1 OrderSheet [facility] Emergency Department [address] [place] [address] Phone #: ext- [phone] 12/19/2020 13:29 Patient: ZARIA CAR Sex: F : 1995 Age: 25yWEIGHT:72.5 kg (S)ALLERGIES: No Known Drug AllergyCHIEF COMPLAINT: pelvic painDIAGNOSIS: Cyst of ovaryLAB ORDERSOrder Description Priority Entered Acknowledged InitialedDIAGNOSTIC STUDY ORDERSOrder Description Priority Entered Acknowledged InitialedUS STAT 14:12/19/2020 14:45 Araceli,TRANSVAGINAL Tj Turner [place] R.N.(NON OB) MAzulDAzul;(Oxygen?(No)) Reason for Study: left pelvic pain, 5.8 cm ovarian cyst on CT [id number]/IV/DRIP/FLUID ORDERSOrder Description Pr iority Entered Acknowledged InitialedNS [...] rce(s) Supporting Document(s) ID Date Data Source [id number] 12/19/2020 01:35:00 PM EDT [facility] 1 Medication Reconciliation Report [facility] Emergency Department [address] [place] [address] Phone #: ext- [phone] 12/19/2020 13:29 Patient: ZARIA CAR Sex: F [...] 14 tablet. Refills: 0. Substitution permitted.Pharmacy - [id number] - [address], [place] [id number]. . -- Tj Turner M.D. Name Value Range Interpretation Code Description Data Rachel cordero(s) Supporting Document(s) ID Date Data Source [id number] 12/19/2020 01:35:00 PM EDT [facility] 1 Medication Administration Record [facility] Emergency Department [address] [place] [address] Phone #: ext [phone] 12/19/2020 13:29 [id number] Sex: F : 1995 Age: 25yWeight: 72.5 kgHeight/Length: 67 inBMI: 25.1ALLERGIES: No Known Drug Allergy Date/Time Medication Administered Medication OrderedStart NS [IV] NS IV 500 mL Bolus: : Bolus [id number] 12/19/2020 Dose: IV Fluids mL, then 150 [...] rce(s) Supporting Document(s) ID Date Data Source [id number] 12/19/2020 01:35:00 PM EDT [facility] 1 General Instructions [facility] Emergency Department [address] [place] [address] Phone #: ext- [phone] 12/19/2020 13:29 [id number] Sex: F : 1995 Age: 25ySingle left ovarian cyst (complex, hemorrhagic vs. endometrioma). No torsion of ovary.INSTRUCTIONS Drink plenty of fluids. Do not smoke. No alcohol. (YOU HAVE AN APPOINTMENT TOMORROW AT [facility] AT 13:[address] JOHNSON).Warnings: Further evaluation is necessary in order to conduct further tests (VISITOR SERVICE ASSISTANT ON 12/20 AT 13:05HRS). It is very [...] 14 tablet. Refills: 0. Substitution permitted.Pharmacy - [facility] #[id number] - [address], [place] [id number]. FaxNumber: .Follow-up:Return to the emergency department as needed. Follow up with an ict support and test engineers tomorrow as scheduled.Reason for referral: evaluation and treatment. Summary of care provided to patient via paper.Understanding of the discharge instructions verbalized by patient. Expected course of illness, dischargeinstructions, activity level, diet, prescriptions x1, follow-up appointment and risks and benefits of treatmentreviewed with patient and understanding verbalized. Agrees to plan of care.Follow-up with: [facility], , , [address] [place], [address] Follow up tomorrow as scheduled. Reason for referral: evaluation and treatment. Summary of careprovided to patient via paper. 2 General Instructions [facility] Emergency Department [address] [place] [address] Phone #: ext- [phone] 12/19/2020 13:29 Patient: ZARIA CAR Sex: Tio [...] pain, your healthcare provider may recommend using koyj-erz-srtnfti pain medicine. If needed, your provide may [...] check if a cyst 3 General Instructions [facility] Emergency Department [address] [place] [address] Phone #: ext- [phone] 12/19/2020 13:29 Patient: [...] Weakness, dizziness, or fainting Abnormal vaginal bleeding [id number] [place] [address]. All rights reserved. This information is not intended as asubstitute for professional medical care. Always follow your healthcare professional's instructions. You have been given the following additional information: Ovaria n Cyst(Electronically signed by Tj Turner M.D. 12/19/2020 16:39) Name Value Range Interpretation Code Description Data Rachel rce(s) Supporting Document(s) ID Date Data Source [id number] 12/19/2020 01:35:00 PM EDT [facility] 1 Clinical Report - Nurses [facility] Emergency Department [address] [place] [address] Phone #: ext- [phone] 12/19/2020 13:29 Patient: ZARIA CAR Sex: F : 1995 Age: 25yTRIAGEArrived by private vehicle. Historian: patient. Accompanied by family. ( presents with c/o abd. pain, ptwas just seen here lastnight and instructed to call [facility] and to come back if no relief with meds. calledclinic and soonest appt 01/05).Triage time: 13:40 12/19/2020. Acuity: LEVEL 4.Chief Complaint: ABDOMINAL PAIN.Alert. 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 Seen within the last [...] RN.ADDITIONAL SURGERIES:Cholecystectomy.. 2 Clinical Report - Nurses [facility] Emergency Department [address] [place] [address] Phone #: ext- [phone] 12/19/2020 13:29 Patient: [...] verified and 3 Clinical Report - Nurses [facility] Emergency Department [address] [place] [address] Phone #: ext- [phone] 12/19/2020 13:29 Patient: [...] Charles R.N. 4 Clinical Report - Nurses [facility] Emergency Department [address] [place] [address] Phone #: ext- [phone] 12/19/2020 13:29 [id number] Sex[facility] F : 1995 Age: 25y Condition at departure: improved. No learning barriers present. Reviewed warnings. Reviewed medication(s). Treatments reviewed. Reviewed referrals. Written instructions provided in Scottish. The patient was discharged by the physician. She was discharged home. She left ambulatory and via private vehicle. Java Security Architect driving. --16:09 12/19/20 [place] Charles R.N. 16:09 12/19/20. Pain level now: 0/10. --16:10 12/19/20 Georgia Charles R.N.Locked/Released at 12/19/2020 16:10 by Georgia Charles R.N. Name Value Range Interpretation Code Description Data Rachel rce(s) Supporting Document(s) ID Date Data Source [id number] 12/19/2020 01:35:00 PM EDT [facility] 1 Clinical Report - Physicians/Mid Levels [facility] Emergency Department [address] [place] [address] Phone #: ext- [phone] 12/19/2020 13:29 Patient: [...] US done, was told to f/u w VISITOR SERVICE ASSISTANT clinic, called today and couldn't get in [...] Allergies: 2 Clinical Report - Physicians/Mid Levels [facility] Emergency Department [address] [place] [address] Phone #: ext- [phone] 12/19/2020 13:29 Patient: ZARIA CAR Sex: F [...] better; we got her an appt w VISITOR SERVICE ASSISTANT in [place] tomorrow at 13:05 hrs; d/c instructions given, [...] controlled; 3 Clinical Report - Physicians/Mid Levels [facility] Emergency Department [address] [place] [address] Phone #: ext- [phone] 12/19/2020 13:29 Patient: [...] alcohol. (YOU HAVE AN APPOINTMENT TOMORROW AT [facility] AT 13:[address] JOHNSON). Warnings: Further evaluation is necessary in order to conduct further tests (VISITOR SERVICE ASSISTANT ON 12/20 AT 13:05 HRS). It is [...] tablet. Refills: 0. Substitution permitted. Pharmacy - [id number] - [address] [place], [place] [id number]. . Follow-up: Return to the emergency department as needed. Follow up with an ict support and test engineers tomorrow as scheduled. Reason for referral: evaluation and treatment. Summary of care provided to patient via paper. Understanding of the discharge instructions verbalized by patient. Expected course of illness, discharge instructions, activity level, diet, prescriptions x1, follow-up appointment and risks and benefits of treatment reviewed with patient and understanding verbalized. Agrees to plan of care. Follow-up with: [facility], , , [address] [place] [address], [facility] Follow up tomorrow as scheduled. Reason for referral: evaluation and treatment. Summary of care provided to patient via paper. 4 Clinical Report - Physicians/Mid Levels [facility] Emergency Department [address] [place] [address] Phone #: ext- [phone] 12/19/2020 13:29 Patient: ZARIA CAR Sex: F : 1995 Age: 25y(Electronically signed by Tj Turner M.D. 12/19/2020 16:39) Name Value Range Interpretation Code Description Data Rachel rce(s) Supporting Document(s) ID Date Data Source [id number] 12/19/2020 09:06:00 AM EDT [facility] [address] [place] [address] PHONE: [phone] FAX: [phone] Name .................. : JOCELINE GARCIA Chan Acct Number.................. : [id number] ROOM. ................. : [facility] Number ................... : [id number] Stay type ............. : E/R Discharge Date......... ... : 12/19/20 Admit Date ......... : 12/18/20 Admit Phys .................... : COONEYNORM Date of ....... : 1995 Family Phys ................... : JOCELYNE VEGA Phone .................. : [phone] Age ................................ : 25 Film# .................. .:[id number] Sex ................................. : F Unsigned transcriptions are preliminary reports and do not represent a medical or legal document CT ABD & PELVIS W/ IV ONLY [id number] COMPLETE:12/19/20 04:47 ARLENE [id number] Reason(s): Abdominal Pain CT ABDOMEN AND PELVIS [...] the lesion. No Page 1 of 2 [place] [address] PHONE: [phone] FAX: [phone] Name .................. : JOCELINE GARCIA Chan Acct Number.................. : [id number] ROOM. ................. : [facility] Number ................... : [id number] Stay type ............. : E/R Discharge Date......... ... : 12/19/20 Admit Date ......... : 12/18/20 Admit Phys .................... : ADDISON Date of ....... : Family Phys ................... : JOCELYNE VEGA Phone .................. : [phone] Age ................................ : 25 Film# .................. .:[id number] Sex ................................. : F Unsigned transcriptions are preliminary reports and do not represent a medical or legal document CT ABD & PELVIS W/ IV ONLY [id number] COMPLETE:12/19/20 04:47 ARLENE [id number] Reason(s): Abdominal Pain nodularity. Moderately prominent enhancing [...] rce(s) Supporting Document(s) ID Date Data Source [id number] 12/19/2020 09:06:00 AM EDT [facility] [address] [place] [address] PHONE: [phone] FAX: [phone] Name .................. : JOCELINE Nguyễn Acct Number.................. : [id number] ROOM. ................. : [facility] MR Number ................... : [id number] Stay type ............. : E/R Discharge Date......... ... : 12/19/20 Admit Date ......... : 12/18/20 Admit Phys .................... : COONEYNORM Date of ....... : 1995 Family Phys ................... : JOCELYNE [employer] Phone .................. : [phone] Age ................................ : 25 Film# .................. .:[id number] Sex ................................. : F Unsigned transcriptions are preliminary reports and do not represent a medical or legal document ABDOMEN MULTIPLE VIEW 17345 COMPLETE:12/19/20 04:47 ARLENE [id number] Reason(s): Abdominal Pain ABDOMINAL RADIOGRAPH SUPINE AND [...] 08:53, Dictation Date: Page 1 of 2 [facility] [address] [place] [address] PHONE: [phone] FAX: [phone] Name .................. : JOCELINE Nguyễn Acct Number.................. : [id number] ROOM. ................. : [facility] Number ................... : [id number] Stay type ............. : E/R Discharge Date......... ... : 12/19/20 Admit Date ......... : 12/18/20 Admit Phys .................... : COONEYNORM Date of ....... : 1995 Family Phys ................... : JOCELYNE VEGA Phone .................. : [phone] Age ................................ : 25 Film# .................. .:[id number] Sex ................................. : F Unsigned transcriptions are preliminary reports and do not represent a medical or legal document ABDOMEN MULTIPLE VIEW 75589 COMPLETE:12/19/20 04:47 ARLENE 76981 Reason(s): Abdominal Pain Copy for: EMERGENCY DEPT via modem Copy for: 710 MED REC DISCHARGED Page 2 of 2 Name Value Range Interpretation Code Description Data Rachel rce(s) Supporting Document(s) ID Date Data Source [id number] 12/18/2020 10:14:00 PM EDT [facility] 1 OrderSheet [facility] Emergency Department [address] [place] [address] Phone #: ext- [phone] 12/18/2020 22:21 Patient: ZARIA CAR Sex: F : 1995 Age: 25yWEIGHT:72.5 kg HEIGHT:67 inches BMI:25.1ALLERGIES: No Known Drug AllergyCHIEF COMPLAINT: abdominal painDIAGNOSIS: Cyst of ovaryLAB ORDERSOrder Description Priority Entered Acknowledged InitialedUrinalysis (Clean STAT 22:49 12/18/2020 Ack'd: 22:50 22:51 Lynn Guerrero [facility]) Jenny Akers MD; Vania GuerreroCG Urine [...] Jenny Akers MD; Vania Guerrero 2 OrderSheet [facility] Emergency Department [address] [place] [address] Phone #: ext- [phone] 12/18/2020 22:21 Patient: [...] rce(s) Supporting Document(s) ID Date Data Source [id number] 12/18/2020 10:14:00 PM EDT [facility] 1 Medication Reconciliation Report [facility] Emergency Department [address] [place] [address] Phone #: ext- [phone] 12/18/2020 22:21 Patient: [...] rce(s) Supporting Document(s) ID Date Data Source [id number] 12/18/2020 10:14:00 PM EDT [facility] 1 Medication Administration Record [facility] Emergency Department [address] [place] [address] Phone #: drg- [phone] 12/18/2020 22:21 Patient: ZARIA CAR Sex: F : 1995 Age: 25yWeight: 72.5 kgHeight/Length: 67 inBMI: 25.1ALLERGIES: No Known Drug Allergy Date/Time Medication Administered Medication OrderedStart IV NS IV NS 1000 mL Bolus : Bolus [id number] 12/18/2020 Dose: IV Fluids mL (X1)Vania Guerrero, [...] rce(s) Supporting Document(s) ID Date Data Source [id number] 12/18/2020 10:14:00 PM EDT [facility] 1 General Instructions [facility] Emergency Department [address] [place] [address] Phone #: ext- [phone] 12/18/2020 22:21 Patient: ZARIA CAR Sex: F : 1995 Age: 25ySingle left ovarian cyst.pelvic congestion.INSTRUCTIONSNo strenuous activity. Do not work for three days.Drink plenty of fluids.(Please also follow up with your primary care physician. return if worse or any new symptoms. taketylenol andmotrin for pain. please call your analog design engineer and be seen in the next [...] patient. ADDITIONAL INFORMATIONOvarian Cysts 2 General Instructions [facility] Emergency Department [address] [place] [address] Phone #: ext- [phone] 12/18/2020 22:21 Patient: [...] pain, your healthcare provider may recommend using [id number] pain medicine. If needed, your provide may [...] provider, or as advised. 3 General Instructions [facility] Emergency Department [address] [place] [address] Phone #: bid- [phone] 12/18/2020 22:21 Patient: ZARIA CAR Sex: F : 1995 Age: 25yWhen to seek medical adviceCall your healthcare provider right away if any of these occur: Pain worsens or fails to get better with home treatment Fever of 100.4F (38C) or higher (or other fever amount directed by your healthcare provider) Nausea and vomiting Weakness, dizziness, or fainting Abnormal vaginal bleeding [id number] [employer]. [address] [place] [address]. All rights reserved. This information is not intended as asubstitute for professional medical care. Always follow your healthcare professional's instructions. You have been given the following additional information: Ovarian Cyst No strenuous activity. Do not work for three days.(Electronically signed by Jenny Akers MD 12/19/2020 03:56) Name Value Range Interpretation Code Description Data Rachel rce(s) Supporting Document(s) ID Date Data Source [id number] 12/18/2020 10:14:00 PM EDT [facility] 1 Clinical Report - Nurses [facility] Emergency Department [address] [place] [address] Phone #: ext- [phone] 12/18/2020 22:21 Patient: ZARIA CAR Sex: F [...] dinner (Chicken tenders and macaroni and cheese).Treatment STEVEDORING SUPERVISOR:(Tylenol-1500). --22:47 12/18/20 Rosie Guerrero2:42 12/18/20. BP: 123/74. [...] Vania Guerrero. 2 Clinical Report - Nurses [facility] Emergency Department [address] [place] [address] Phone #: ext- [phone] 12/18/2020 22:21 Patient: ZARIA CAR Sex: F [...] PROGRESS NOTES 3 Clinical Report - Nurses [facility] Emergency Department [address] [place] [address] Phone #: ext- [phone] 12/18/2020 22:21 Patient: ZARIA CAR Sex: F [...] understanding. --00:32 12/19/20 Zoya Guerrero transported to [place] by wheelchair with mask and tech. --00:32 12/19/20 Vania Guerrero00:41 12/19/2020 Ofirmev * IV 1 gm --00:41 12/19/20 Vania Guerrero00:42 12/19/2020 IV Fluids IV NS via IV site #1 Discontinued: bag #1 infused. Total amount infused: 1000mL. IV patency e stablished. IV site checked: no pain, redness, or swelling. IV flushed thoroughly. --00: Zoya Guerrero returned from [place] by wheelchair with mask and tech. --00:42 12/19/20 Vania Guerrero01:28 12/19/20. BP: 118/68. HR: 70. RR: 16. O2 saturation: 99%. Pain level now /10. --01:28 12/19/20Vania Guerrero 4 Clinical Report - Nurses [facility] Emergency Department [address] [place] [address] Phone #: ext- [phone] 12/18/2020 22:21 Patient: [...] Patient verbalized understanding. Written instructions provided in Scottish. The patient was discharged by the physician. [...] rce(s) Supporting Document(s) ID Date Data Source [id number] 12/18/2020 10:14:00 PM EDT [facility] 1 Clinical Report - Physicians/Mid Levels [facility] Emergency Department [address] [place] [address] Phone #: ext- [phone] 12/18/2020 22:21 Patient: [...] None. Allergies: 2 Clinical Report - [facility] [address] [place] [address] Phone #: ext- [phone] 12/18/2020 22:21 Patient: ZARIA CAR Sex: F [...] 2.5) 3 Clinical Report - Physicians/Mid Levels [facility] Emergency Department [address] [place] [address] Phone #: [phone] ext- [phone] 12/18/2020 22:21 Patient: ZARIA CAR Sex: F [...] Male GFR Interprentation 20-49 yrs >60 mL/min Qijmvs19-37 yrs >56 mL/min Normal 60-69 yrs >49 mL/min Normal 70-79yrs>42 mL/min Normal 80 and above >35 mL/min Normal Female GFRInterpretation 20-39 yrs >60 mL/min Normal 40-49 yrs >58 mL/minNormal 50-59 yrs >51 mL/min Normal 60-69 yrs >45 mL/min Jjwutt43-64 yrs >39 mL/min Normal 80 and above >32 mL/min NormalLactic Acid: (ABILIO: 12/18/2020 23:35) ( NmgRcvd 12/18/2020 23:50) Final results Test Result Flag Units (Reference) LACTIC ACID 1.3 MMOL/L (0.2 - 2.2)Lipase: (ABILIO: 12/18/2020 23:35) ( NmgRcvd 12/19/2020 00:07) Final results Test Result Flag Units (Reference) LIPASE 31 U/L (13 - 60)Urinalysis: (ABILIO: 12/18/2020 22:51) ( MsgRcvd 12/18/2020 23:10) Final results Test Result Flag Units (Reference) URINALYSIS URINALYSIS 4 Clinical Report - Physicians/Mid Levels [facility] Emergency Department [address] [place] [address] Phone #: ext- [phone] 12/18/2020 22:21 Patient: [...] NEGATIVE (NORMAL: NEGAT { KIT LOT # [id number] ){ KIT EXP DATE 05.10.22 ){ PROCEDURAL [...] 5.2x3.5cm. I encouraged her to f/u with industrial plant custodian this week and to return if worseor any new symptoms. Patient/family counseled. Disposition: Discharged. Condition: good and stable.CLINICAL IMPRESSION Single left ovarian cyst. pelvic congestion.INSTRUCTIONS 5 Clinical Report - Physicians/Mid Levels [facility] Emergency Department [address] [place] [address] Phone #: ext- [phone] 12/18/2020 22:21 [id number] Sex: F : 1995 Age: 25y No strenuous activity. Do not work for three days. Drink plenty of fluids. (Please also follow up with your primary care physician. return if worse or any new symptoms. take tylenol andmotrin for pain. please call your analog design engineer and be seen in the next [...] rce(s) Supporting Document(s) ID Date Data Source [id number] 12/19/2020 12:07:00 AM EDT [facility] Name Value Range Interpretation Code Description Data Rachel rce(s) Supporting Document(s) Lipase [Enzymatic activity/volume] in Serum or Plasma 31 U/L 13 - 60 [facility] ID Date Data Source [id number] 12/19/2020 12:07:00 AM EDT [facility] Name Value Range Interpretation Code Description Data Rachel rce(s) Supporting Document(s) COMPREHENSIVE METABOLIC PANEL [facility] COMPREHENSIVE METABOLIC PANEL Sodium [Moles/volume] in Serum or Plasma 138 mEq/L 134 - 153 [facility] Potassium [Moles/volume] in Serum or Plasma 3.8 mEq/L 3.6 - 5.0 [facility] Chloride [Moles/volume] in Serum or Plasma 103 mEq/L 98 - 107 [facility] Carbon dioxide, total [Moles/volume] in Serum or Plasma 27 MEQ/L 22 - 30 [facility] Glucose [Mass/volume] in Serum or Plasma 85 MG/DL 70 - 99 [facility] BUN 10 MG/DL 7 - 21 [facility] Creatinine [Mass/volume] in Serum or Plasma 0.6 MG/DL 0.7 - 1.5 L [facility] BUN/CREAT 17 8 - 27 [facility] al Protein [Mass/volume] in Serum or Plasma 6.4 G/DL 6.3 - 8.2 [facility] Albumin [Mass/volume] in Serum or Plasma 4.1 G/DL 3.9 - 5.0 [facility] Globulin [Mass/volume] in Serum by calculation 2.3 GM/DL 2.4 - 3.2 L [facility] A/G RATIO 1.8 0.8 - 2.0 [facility] Calcium [Mass/volume] in Serum or Plasma 9.7 MG/DL 8.4 - 10.2 [facility] Bilirubin.total [Mass/volume] in Serum or Plasma <0.7 MG/DL 0.2 - 1.3 [facility] Alkaline phosphatase [Enzymatic activity/volume] in Serum or Plasma 83 U/L 38 - 126 [facility] Aspartate aminotransferase [Enzymatic activity/volume] in Serum or Plasma 13 U/L 5 - 40 [facility] Alanine aminotransferase [Enzymatic activity/volume] in Seru m or Plasma 7 U/L 7 - 56 [facility] Anion gap 3 in Serum or Plasma 8.0 mmol/L 8.0 - 16.0 [facility] AGE 25 yrs [facility] al NON-AA GFR >60 mL/min [facility] ital AFR AMER GFR >60 mL/min [facility] Ho spital Male GFR In terprentation [...] >32 mL/min Normal ID Date Data Source [id number] 12/18/2020 11:50:00 PM EDT [facility] Name Value Range Interpretation Code Description Data Rachel rce(s) Supporting Document(s) Lactate [Moles/volume] in Serum or Plasma 1.3 MMOL/L 0.2 - 2.2 [facility] ID Date Data Source [id number] 12/18/2020 11:44:00 PM EDT [facility] Name Value Range Interpretation Code Description Data Rachel rce(s) Supporting Document(s) CBC W/AUTOMATED DIFF [facility] COMPLETE BLOOD COUNT Leukocytes [#/volume] in Blood by Automated count 8.3 10^3/uL 4.2 - 1 1.0 [facility] Erythrocytes [#/volume] in Blood by Automated count 3.98 10^6/uL 4. 20 - 5.40 L [facility] Hemoglobin [Mass/volume] in Blood 13.0 g/dL 12.0 - 16.0 [facility] Hematocrit [Volume Fraction] of Blood by Automated count 38.8 % 3 7.0 - 47.0 [facility] Erythrocyte mean corpuscular volume [Entitic volume] by Auto mated count 97.5 fL 81.0 - 101 [facility] Erythrocyte mean corpuscular hemoglobin [Entitic mass] by Automated count 32.7 pg 27.0 - 34.0 [facility] Erythrocyte mean corpuscular hemoglobin concentration [Mass/volume] by Automated count 33.5 g/dL 31.0 - 36.0 [facility] Erythrocyte distribution width [Ratio] by Automated count 13.2 % 11.5 - 14.5 [facility] Platelets [#/volume] in Blood by Automated count 203 10^3/uL 150 - 45 0 [facility] Platelet mean volume [Entitic volume] in Blood by Automated count 10.8 fL 7.4 - 10.4 H [facility] Neutrophils/100 leukocytes in Blood by Automated count 59.2 % 37. 0 - 80.0 [facility] Lymphocytes/100 leukocytes in Blood by Manual count 29.7 % 25.0 - 40.0 [facility] Monocytes/100 leukocytes in Blood by Automated count 8.2 % 3.0 - 8.0 H [facility] Eosinophils/100 leukocytes in Blood by Automated count 2.1 % 0.0 - 7.0 [facility] Basophils/100 leukocytes in Blood by Automated count 0.4 % 0.0 - 2.5 [facility] %IG 0.4 % 0.0 - 0.0 H [facility] Hospit al %NRBC 0.0 % 0.0 - 0.0 [facility] al Neutrophils [#/volume] in Blood by Automated count 4.89 10^3/uL 2.00 - 6.90 [facility] Lymphocytes [#/volume] in Blood by Automated count 2.45 10^3/uL 0.60 - 3.40 [facility] Monocytes [#/volume] in Blood by Automated count 0.68 10^3/uL 0.00 - 0.90 [facility] Eosinophils [#/volume] in Blood by Automated count 0.17 10^3/uL 0.00 - 0.70 [facility] Basophils [#/volume] in Blood by Automated count 0.03 10^3/uL 0.00 - 0.20 [facility] #IG 0.03 10^3/uL 0.00 - 0.10 [facility] ospital #NRBC 0.00 10^3/uL 0.00 - 0.00 [facility] H ospital MANUAL DIFF NOT INDICATED [facility] RBC MORPH NOT INDICATED [facility] Ho spital ID Date Data Source [id number] 12/18/2020 11:10:00 PM EDT [facility] Name Value Range Interpretation Code Description Data Rachel rce(s) Supporting Document(s) HCG URINE QUAL NEGATIVE NORMAL: NEGATIVE [facility] HCG URINE QL REENTER NEGATIVE NORMAL: NEGATIVE [facility] { KIT LOT # [id number] ){ KIT EXP DATE 05.10.22 ){ PROCEDURAL CONTROL VALID ) ID Date Data Source [id number] 12/18/2020 11:09:00 PM EDT [facility] Name Value Range Interpretation Code Description Data Rachel rce(s) Supporting Document(s) [facility] COL[facility] yellow NORMAL: Yellow [facility] ospital CLARITY turbid NORMAL: Clear [facility] Ho spital Specific gravity of Urine by Test strip 1.020 1.001 - 1.030 [facility] pH 6.5 5 - 9 [facility] Glucose [Mass/volume] in Urine by Test strip NORM NORMAL: Negat [facility] Bilirubin.total [Presence] in Urine by Test strip NEG NORMAL: Negative [facility] Ketones [Presence] in Urine by Test strip 5 NORMAL: Negative [facility] Protein [Mass/volume] in Urine by Test strip NEG NORMAL: Negat [facility] Nitrite [Presence] in Urine by Test strip NEG NORMAL: Negative [facility] BLOOD NEG NORMAL: Negative [facility] LEUK EST 25 NORMAL: Negative [facility] Urobilinogen [Mass/volume] in Urine by Test strip NOR less nathalia n 1.0 mg/dL [facility] MICROSCOPIC See Below [facility] ital WBC 1 - 3 NORMAL: NONE SEEN [facility] Erythrocytes [#/volume] in Urine by Test strip 0 - 1 NORMAL: NON E SEEN [facility] EPITHELIAL MANY NORMAL: NONE SEEN [facility] Bacteria [Presence] in Urine sediment by Light microscopy 1+ SMALL NORMAL: NONE SEEN [facility] Mucus [Presence] in Urine sediment by Light microscopy 1+ NOR MAL: NONE SEEN [facility] Amorphous sediment [Presence] in Urine sediment by Light dany roscopy 1+ NORMAL: NONE SEEN [facility] ID Date Data Source [id number] 12/02/2020 03:34:00 PM EDT [facility] 1 OrderSheet [facility] Emergency Department [address] [place] [address] Phone #: ext- [phone] 12/02/2020 15:29 Patient: ZARIA CAR Sex: F [...] Kristopher Robledo RN (18:51 12/02/2020)] 2 OrderSheet [facility] Emergency Department [address] [place] [address] Phone #: ext- [phone] 12/02/2020 15:29 Patient: ZARIA CAR Sex: F : 1995 Age: 25y[Electronically signed by Bridger Serra P.A.-C (20:16 12/02/2020)][Electronically locked by Kristopher Robledo RN (18:51 12/02/2020)] Name Value Range Interpretation Code Description Data Rachel rce(s) Supporting Document(s) ID Date Data Source [id number] 12/02/2020 03:34:00 PM EDT [facility] 1 Medication Reconciliation Report [facility] Emergency Department [address] [place] [address] Phone #: ext- [phone] 12/02/2020 15:29 Patient: ZARIA CAR Sex: F [...] Dispense 21 capsule.Refills: 0. Substitution permitted.Pharmacy - [facility] [address] [place] [employer] - [id number] [place] [address] ; [place] [address]. .gabapentin 100 mg capsule Take 1 capsule three times a day for 3 days -- Dispense 9 capsule. Refills:0. Substitution permitted.Pharmacy - [facility] [address] [place] [employer] - [address] [facility] ; [place] [address]. . -- Bridger Serra P.A.-C Name Value Range Interpretation Code Description Data Rachel rce(s) Supporting Document(s) ID Date Data Source [id number] 12/02/2020 03:34:00 PM EDT [place] [address] Medication Administration Record [facility] Emergency Department [address] [place] [address] Phone #: [phone] ext- [phone] 12/02/2020 15:29 Patient: ZARIA CAR Sex: F [...] rce(s) Supporting Document(s) ID Date Data Source [id number] 12/02/2020 03:34:00 PM EDT [facility] 1 General Instructions [facility] Emergency Department [address] [place] [address] Phone #: ext- [phone] 12/02/2020 15:29 Patient: ZARIA CAR Sex: F [...] Dispense 21 capsule.Refills: 0. Substitution permitted.Pharmacy - [facility] [place] [address] ; [place] [address]. .gabapentin 100 mg capsu le Take 1 capsule three times a day for 3 days -- Dispense 9 capsule. Refills:0. Substitution permitted.Pharmacy - [facility] [place] [address] ; [place] [address]. .Follow-up:Follow up with your healthcare provider in about two days if not better. Call for an appointment.Understanding of the discharge instructions verbalized by patient. ADDITIONAL INFORMATIONAbrasions 2 General Instructions [facility] Emergency Department [address] [place] [address] Phone #: ext- [phone] 12/02/2020 15:29 Patient: ZARIA CAR Sex: F [...] drainage from the wound 3 General Instructions [facility] Emergency Department [address] [place] [address] Phone #: ext- [phone] 12/02/2020 15:29 Patient: ZARIA CAR Sex: F : 1995 Age: 25y Bleeding from the wound that does not stop after a few minutes of steady, firm pressure Decreased ability to move any body part near the wound [employer]. [address] [place] [address]. All rights reserved. This information is not [...] bandage Red streaks surround the wound area [phone] [employer]. [address] [place] [address]. All rights reserved. This information is not intended as asubstitute for professional medical care. Always follow your healthcare professional's instructions. You have been given the following additional information: Abrasions 4 General Instructions [facility] Emergency Department [address] [place] [address] Phone #: ext- [phone] 12/02/2020 15:29 Patient: ZARIA CAR Sex: F : 1995 Age: 25yDressing ChangeYou may walk and bear weight as tolerated. Do not work for five days (To facilitate recovery).(Electronically signed by Bridger Serra P.A.-C 12/02/2020 20:16) Name Value Range Interpretation Code Description Data Rachel rce(s) Supporting Document(s) ID Date Data Source [id number] 12/02/2020 03:34:00 PM EDT [facility] 1 Clinical Report - Nurses [facility] Emergency Department [address] [place] [address] Phone #: ext- [phone] 12/02/2020 15:29 Patient: ZARIA CAR Sex: F : 1995 Age: 25yTRIAGEArrived by private vehicle. Historian: patient.Acuity: LEVEL 4.Chief Complaint: INJURY TO THE RIGHT FOOT.Alert. No acute distress.Occurred 03:33 12/02/2020. The patient sustained a laceration (razor). ( PT reports this morning [id number] am she stepped out of the shower unto a blake razor blade. She reports a moderate amount ofbleeding between her great and 2nd toe on her right foot. She is unsure of her last tetanus shot.).Treatment STEVEDORING SUPERVISOR:None.SEPSIS SCREEN: SIRS SCREEN NEGATIVE. SEPSIS SCREEN NEGATIVE. [...] SURGERIES:Cholecystectomy..Exploratory laparotomy. 2 Clinical Report - Nurses [facility] Emergency Department [address] [place] [address] Phone #: ext- [phone] 12/02/2020 15:29 [id number] Sex[facility] F : 1995 Age: 25y Salpingectomy. [...] on patient. --15:39 12/02/20 Sharron Jimenez R.N.PHYSICAL CMQUAHELXC89:59 12/02/20. Ambulatory to room.GENERAL / NEURO / [...] Robledo RN 3 Clinical Report - Nurses [facility] Emergency Department [address] [place] [address] Phone #: ext- [phone] 12/02/2020 15:29 Patient: ZARIA CAR Sex: F : 1995 Age: 25y 16:52 12/02/20. BP: 130/82. MAP: 98. HR: 75. RR: 16. O2 saturation: 100%. Temp: 98.7 F (oral). Pain level now: 10/18. --17:00 12/02/20 Kristopher Robledo RN 17:08 12/02/2020 TDAP IM 0.5 mL given(Lot#: [id number], expiration date: 08/14/2022, [employer] Pl Sql Developer: [employer]k). Given in the left deltoid. Allergies verified [...] antibiotic ointment (bacitracin). Secured with rosy bandage. (9925). --18:10 12/02/20 Kristopher Robledo RN 18:21 12/02/2020 [...] Patient verbalized understanding. Written instructions provided in Scottish. 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 She was discharged home. She left ambulatory and via private vehicle. Patient driving. --18:51 12/02/20 Kristopher Robledo RN.Locked/Released at 12/02/2020 18:51 by Kristophre Robledo RN Name Value Range Interpretation Code Description Data Rachel rce(s) Supporting Document(s) ID Date Data Source [id number] 12/02/2020 03:34:00 PM EDT [facility] 1 Clinical Report - Physicians/Mid Levels [facility] Emergency Department [address] [place] [address] Phone #: ext- [phone] 12/02/2020 15:29 Patient: ZARIA CAR Sex: F [...] complaints 2 Clinical Report - Physicians/Mid Levels [facility] Emergency Department [address] [place] [address] Phone #: ext- [phone] 12/02/2020 15:29 [id number] Sex: F : 1995 Age: 25y or [...] restrictions. 3 Clinical Report - Physicians/Mid Levels [facility] Emergency Department [address] [place] [address] Phone #: ext- [phone] 12/02/2020 15:29 Patient: ZARIA CAR Sex: F [...] capsule. Refills: 0. Substitution permitted. Pharmacy - [facility] [place] [address] ; [place] [address]. . gabapentin 100 mg capsule Take 1 capsule three times a day for 3 days -- Dispense 9 capsule. Refills: 0. Substitution permitted. Pharmacy - [facility] [place] [address] ; [place] [address]. . Follow-up: Follow up with your healthcare provider in about two days if not better. Call for an appointment. Understanding of the discharge instructions verbalized by patient.(Electronically signed by Bridger Serra P.A.-C 12/02/2020 20:16) Name Value Range Interpretation Code Description Data Rachel rce(s) Supporting Document(s) ID Date Data Source [id number] 10/31/2020 01:46:00 PM EDT [facility] Patient: ZARIA CARo chan Report - Physicians/Mid Levels HospitalVisitID: [id number] [place] [address] [phone], FRegistrabayhealth medical center Date/Time: 10/17/2020 22:30 Weight:72.5 kg. Height/Length:66 inches. [...] 10/18/2020 00:46) Addenda for ZARIA CAR VisitID: [id number] Date: 10/17/2020 10/31/2020 13:31Lab results reviewed. Communicated information to patient. Script for Flagyl 500mg po BID for 5 days called to [facility] [place]. Pt aware that script called in. (Electronically signed by Maryuri Dasilva R.N. - 10/31/2020 13:31) Name Value Range Interpretation Code Description Data Rachel rce(s) Supporting Document(s) ID Date Data Source [id number] 10/18/2020 07:17:00 AM EDT [facility] [...] Interpretation Code Description Data Rachel [facility](s) Supporting Document(s) ID Date Data Source [id number] 10/18/2020 03:55:00 AM EDT [facility] l Patient: ZARIA CAR Observatio n Report - Physicians/Mid Levels Medical Center.VisitID: [id number] [place] [address] [phone], FRegistration Date/Time: 10/17/2020 22:30 Weight:72.5 kg. Height/Length:66 [...] rce(s) Supporting Document(s) ID Date Data Source [id number] 10/20/2020 06:10:00 AM EDT [facility] Name Value Range Interpretation Code Description Data Rachel rce(s) Supporting Document(s) CHLAMYDIA TRACHOMATIS, JUAN Negative Negative [facility] NEISSERIA GONORRHOEAE, JUAN Negative Negative [facility] Performed at: [facility] [place], [place] [id number] Director: Magalie Foster MD, Phone: [phone] ID Date Data Source [id number] 10/19/2020 04:10:[address] [facility] Name Value Range Interpretation Code Description Data Rachel rce(s) Supporting Document(s) MAREN SPECIES Negative Negative [facility] GARDNERELLA VAGINALIS Positive Negative [facility] spital TRICHOMONAS VAGINALIS Negative Negative [facility] Performed at: [facility] [address] [place], [place] [id number] Director: Magalie Foster MD, Phone: [phone] ID Date Data Source [id number] 10/19/2020 04:05:00 PM EDT [facility] Name Value Range Interpretation Code Description Data Rachel rce(s) Supporting Document(s) Maren species Negative Negative [facility] Gardnerella vaginalis Positive Negative Abnormal ( applies to non-numeric results) [facility] Trichomonas vaginalis Negative Negative [facility] ID Date Data Source [id number] 10/20/2020 06:05:00 AM EDT [facility] Name Value Range Interpretation Code Description Data Rachel rce(s) Supporting Document(s) Chlamydia/GC [facility] TESTS RESULT FLAG UNI TS REF RANGE LAB C trachomatis, JUAN Negative (Negative) 01N gonorrhoeae, JUAN Negative (Negative) 01 FLAG LEGEND: L-Low Normal,H-High Normal,LL-Alert Low,HH-Alert High <-Panic Low,>-Panic High,A-Abnormal,AA-Critical Abnormal Performed at:01 RN [facility] [address] [id number] Magalie Foster MD, ID Date Data Source [id number] 10/17/2020 11:51:00 PM EDT [facility] l TSYSORDER [id number] Name Value Range Interpretation Code Description Data [facility](s) Supporting Document(s) GLUCOSE 85 mg/dL 74-106 [facility] BLOOD UREA NITROGEN 8 mg/dL 7-18 [facility] ital CREATININE 0.70 mg/dL 0.6-1.0 [facility] SODIUM 140 mmol/L 136-145 [facility] POTASSIUM 3.8 mmol/L 3.5-5.1 [facility] CHLORIDE 102 mmol/L 98-107 [facility] CO2 31 mmol/L 21-32 [facility] CALCIUM 9.1 mg/dL 8.5-10.1 [facility] ANION GAP 7.0 mmol/L 5-12 [facility] GLOMERULAR FILTRATION RATE >90 mL/min [facility] GFR IS CALCULATED IN mL/min/1.73m2 JENNY L FUNCTION: >90MILDLY DECREASED: 60-89MILDY TO MODERATELY DECREASED: 45-59 MODERATELY TO SEVERELY DECREASED: 30-44SEVERELY DECREASED: 15-29RENAL FAILURE: <15 AST 80 U/L 15-37 H [facility] ALT 70 U/L 12-78 [facility] ALKALINE PHOSPHATASE 80 U/L 46-116 [facility] pital TOTAL BILIRUBIN 0.2 mg/dL 0.2-1.0 [facility] TOTAL PROTEIN 7.9 g/dl 6.4-8.2 [facility] ALBUMIN 4.1 gm/dL 3.4-5.0 [facility] ID Date Data Source [id number] 10/17/2020 11:51:00 PM EDT [facility] l TSYSORDER [id number] Name Value Range Interpretation Code Description Data Rachel rce(s) Supporting Document(s) MAGNESIUM 1.8 mg/dL 1.8-2.4 [facility] ID Date Data Source [id number] 10/17/2020 11:51:00 PM EDT [facility] l TSYSORDER [id number] Name Value Range Interpretation Code Description Data Rachel rce(s) Supporting Document(s) LIPASE 108 U/L 73-393 [facility] ID Date Data Source [id number] 10/17/2020 11:49:00 PM EDT [facility] l TSYSORDER [id number] Name Value Range Interpretation Code Description Data Rachel rce(s) Supporting Document(s) PARTIAL THROMBOPLASTIN TIME 26.3 SECONDS 21.2-27.3 [facility] ID Date Data Source [id number] 10/17/2020 11:49:00 PM EDT [facility] l TSYSORDER [id number] Name Value Range Interpretation Code Description Data Rachel rce(s) Supporting Document(s) PROTHROMBIN TIME (PATIENT) 9.6 SECONDS 9.1-11.6 [facility] INR 0.92 0.87-1.06 [facility] ID Date Data Source [id number] 10/17/2020 11:32:00 PM EDT [facility] l TSYSORDER [id number] Name Value Range Interpretation Code Description Data Rachel rce(s) Supporting Document(s) WHITE BLOOD COUNT 8.1 K/mm3 4.0-10.0 [facility]LOOD COUNT 4.33 M/mm3 4.00-5.50 [facility] l HEMOGLOBIN 13.8 gm/dL 12.0-16.0 [facility] HEMATOCRIT 42.4 % 36.0-48.8 [facility] MEAN CELL VOLUME 97.9 fl 80-96 H [facility] MEAN CORPUSCULAR HEMOGLOBIN 31.9 pg 27.0-31.0 H [facility] MEAN CORPUSCULAR HGB CONC 32.5 g/dl 32.0-36.0 [facility] RED CELL DISTRIBUTION WIDTH 12.8 % 10.0-14.5 [facility] PLATELET COUNT 228 K/mm3 172-450 [facility] MEAN PLATELET VOLUME 10.0 fl 9.0-13.0 [facility] pital GRAN % 52.8 % 50-80.0 [facility] IG% 0.0 % 0.0-0.2 [facility] LYMPH % 39.3 % 25.0-50.0 [facility] MONO % 6.5 % 2.0-10.0 [facility] EOS % 1.0 % 0-5.0 [facility] BASO % 0.4 % 0.0-2.0 [facility] GRAN # 4.3 K/mm3 2.0-8.00 [facility] IG# 0.0 K/mm3 0.0-0.2 [facility] LYMPH # 3.2 K/mm3 1.0-5.0 [facility] MONO # 0.5 K/mm3 0.10-1.20 [facility] EOS # 0.1 K/mm3 0.0-0.5 [facility] BASO # 0.0 K/mm3 0.0-0.2 [facility] ID Date Data Source [id number] 10/17/2020 11:28:00 PM EDT [facility] TSYSORDER [id number] Name Value Range Interpretation Code Description Data Rachel rce(s) Supporting Document(s) URINE RBC 5-10 /hpf 0-3 H [facility] URINE EPITHELIAL CELLS 1+ /hpf 0 [facility] ID Date Data Source [id number] 10/17/2020 11:26:00 PM EDT [facility] TSYSORDER [id number] Name Value Range Interpretation Code Description Data Rachel rce(s) Supporting Document(s) URINE COLOR. [facility] URINE APPEARANCE CLEAR [facility] l URINE GLUCOSE (UA) NEGATIVE mg/dL NEGATIVE [facility] URINE BILIRUBIN NEGATIVE NEGATIVE [facility] URINE KETONE NEGATIVE mg/dL NEGATIVE [facility] SPECIFIC GRAVITY,URINE 1.020 1.005-1.030 [facility] URINE BLOOD 2+(MODERATE) NEGATIVE [facility] PH,URINE 6.5 5.0-9.0 [facility] URINE PROTEIN NEGATIVE mg/dL NEGATIVE [facility] tianna URINE UROBILINOGEN NORMAL(0.2-1) mg/dL 0-1 [facility] URINE NITRATE NEGATIVE NEGATIVE [facility] URINE LEUKOCYTE ESTERASE NEGATIVE NEGATIVE [facility] ID Date Data Source [id number] 10/17/2020 11:15:00 PM EDT [facility] l TSYSORDER [id number] Name Value Range Interpretation Code Description Data Rachel rce(s) Supporting Document(s) HCG URINE NEGATIVE NEGATIVE [facility] ID Date Data Source [id number] 10/10/2020 03:35:00 PM EDT [facility] Name Value Range Interpretation Code Description Data Rachel rce(s) Supporting Document(s) ABO group [Type] in Blood A [facility] Rh [Type] in Blood POSITIVE [facility] AB SCREEN NEGATIVE NORMAL: NEGATIVE [facility] { ABO/RH REENTER A POSITIVE{ AB SCREEN RE-ENTER NEGATIVE ID Date Data Source [id number] 10/10/2020 02:44:00 PM EDT [facility] Name Value Range Interpretation Code Description Data Rachel rce(s) Supporting Document(s) HCG SERUM QUAL NEGATIVE NORMAL: NEGATIVE [facility] HCG SERUM QL REENTER NEGATIVE NORMAL: NEGATIVE [facility] { KIT LOT # [id number] ){ KIT EXP DATE 03.10.22 ){ PROCEDURAL CONTROL VALID ) ID Date Data Source [id number] 10/10/2020 10:59:00 AM EDT [facility] Name Value Range Interpretation Code Description Data Rachel rce(s) Supporting Document(s) CBC NO DIFF [facility] COMPLETE BLOOD COUNT Leukocytes [#/volume] in Blood by Automated count 6.9 10^3/uL 4.2 - 1 1.0 [facility] Erythrocytes [#/volume] in Blood by Automated count 4.31 10^6/uL 4. 20 - 5.40 [facility] Hemoglobin [Mass/volume] in Blood 13.9 g/dL 12.0 - 16.0 [facility] Hematocrit [Volume Fraction] of Blood by Automated count 42.1 % 3 7.0 - 47.0 [facility] Erythrocyte mean corpuscular volume [Entitic volume] by Auto mated count 97.7 fL 81.0 - 101 [facility] Erythrocyte mean corpuscular hemoglobin [Entitic mass] by Automated count 32.3 pg 27.0 - 34.0 [facility] Erythrocyte mean corpuscular hemoglobin concentration [Mass/volume] by Automated count 33.0 g/dL 31.0 - 36.0 [facility] Erythrocyte distribution width [Ratio] by Automated count 12.8 % 11.5 - 14.5 [facility] Platelets [#/volume] in Blood by Automated count 249 10^3/uL 150 - 45 0 [facility] Platelet mean volume [Entitic volume] in Blood by Automated count 9.9 fL 7.4 - 10.4 [facility] ID Date Data Source [id number] 10/10/2020 10:22:00 AM EDT [facility] Name Value Range Interpretation Code Description Data Rachel e(s) Supporting Document(s) SARS coronavirus 2 RNA Not Detected [facility] This lab was ordered by [facility] michael and reported by [facility]. ID Date Data Source [id number] 10/12/2020 02:07:00 PM EDT [facility] Name Value Range Interpretation Code Description Data Rachel rce(s) Supporting Document(s) SARS-CoV-2, JUAN Not Detected Not Detected [facility] This nucleic acid amplification test was developed and its performancecharacteristics determined by [facility]. Nucleic acidamplification tests include RT-PCR and [...] assay. SARS-CoV-2, JUAN 2 DAY TAT Performed [facility] ID Date Data Source [id number] 09/18/2020 02:15:00 PM EDT [employer] [facility] Name Value Range Interpretation Code Description Data Rachel rce(s) Supporting Document(s) COVID-19 RT-PCR NASAL SWAB Not Detected Not Detected [employer] A not detected (negative) test result fo [...] developed and its performance characteristics determined by [employer] and verified at [facility]. It has not been cleared or approved by the U.S. Food and Drug Administration for diagnostic use. This test has been authorized by FDA under an EUA for use by authorized laboratories. Results should be used in conjunction with clinical findings, and should not form the sole basis for a diagnosis or treatment decision. Methods: SARS-CoV-2 Multiplex RT-PCR Assay ID Date Data Source [id number] 09/15/2020 04:00:00 PM EDT [facility] Name Value Range Interpretation Code Description Data Rachel rce(s) Supporting Document(s) SARS-CoV-2 (COVID-19) N gene [Presence] in Respiratory specimen by JUAN with probe detection NEGATIVE [facility] This lab was ordered by [facility] and reported by [employer] [facility]. ID Date Data Source [id number] 09/15/2020 12:00:00 AM EDT [facility] Name Value Range Interpretation Code Description Data Rachel rce(s) Supporting Document(s) Carestart Rapid COVID Antigen Test Negative [facility] This lab was reported by [facility]. ID Date Data Source [id number] 08/28/2020 02:04:00 AM EDT [address] [place] [address] ---------NAME--------- NUMBER SEX AGE ADMIT DISC. XRAY# F/C TYPE JOCELINE GARCIA N [id number] F 25 08/27/20 08/28/20 [id number] SB2 E/R DATE OF : 1995 M/R# [id number] #: [id number] TR-06 LOCATION: EMERGENCY DEPT TRANSCRIBED: 08/28/20 2:[address] ABD //T// PELVIS W/ IV ONLY [id number] COMPLETED:08/28/20 2:48 RLB 9170 Reason(s): abdominal pain, LUQ, RLQ, Diarrhea PHYSICIAN: YUE CLAUDETTE == R A D I O L O G Y R E P O R T PATIENT HISTORY:Abdominal pain, LUQ, RLQ, Diarrhea. Accumulated DLP-675.9 mGy*cm, EstimatedDLP-665.6 mGy*cm. Neg BEta. [id number], 75mL, [id number], 09/30. Labs verified andscanned.Time Out performed. Correct patient with 2 identifiers, type and amount ofcontrast used, correct body part and side all verified prior to examination.Images sent to[facility] for review. - RLB / CORONAL (DICOM Hx)EXAM: CT Abdomen and Pelvis with IV contrastCLINICAL HISTORY:Abdominal pain, LUQ, RLQ, Diarrhea. Accumulated DLP-675.9mGy*cm, Estimated DLP-665.6 mGy*cm. Neg BEta. [id number], 75mL, [id number], 09/30. Labsverified and scanned. Time Out performed. [...] low as reasonably achievable.CONTRAST:with intravenous contrast. With; JDU609, 75MlCOMPARISON:None provided.FINDINGS:LUNG BASES: The lung bases appear [...] rce(s) Supporting Document(s) ID Date Data Source [id number] 08/28/2020 10:45:00 AM EDT [facility] Name Value Range Interpretation Code Description Data Rachel rce(s) Supporting Document(s) COVID-19 RT-PCR BODY STYLIST SWAB TNP [employer] [facility] Sample tube arrived without Viral Transp ort Media, unable to perform test. No evidence of sample leakage. Sample tube arrived without Viral Transport Media, unable to perform test. No evidence of sample leakage. ID Date Data Source [id number] 08/28/2020 10:45:00 AM EDT [facility] Name Value Range Interpretation Code Description Data Rachel rce(s) Supporting Document(s) Non-Conformance #NOMEDIA [facility] Sample tube arrived without Viral Transp ort Media, unable to perform test. No evidence of sample leakage. ID Date Data Source [id number] 08/28/2020 10:45:00 AM EDT [facility] Name Value Range Interpretation Code Description Data Rachel rce(s) Supporting Document(s) REJECTED SPECIMEN #NOMEDIA [facility] Sample tube arrived without Viral Transp ort Media, unable to perform test. No evidence of sample leakage. ID Date Data Source [id number] 08/27/2020 10:54:00 PM EDT [facility] 1 OrderSheet [facility] Emergency Department [address] [place] [address] Phone #: ext- [phone] 08/27/2020 22:53 Patient: ZARIA CAR [facility]#: [id number] Sex: F : 1995 Age: 25yWEIGHT:74.8 kg [...] 1000 Julianerin, Tj Metza R.N. 2 OrderSheet [facility] Emergency Department [address] [place] [address] Phone #: ext- [phone] 08/27/2020 22:53 Patient: [...] rce(s) Supporting Document(s) ID Date Data Source [id number] 08/27/2020 10:54:00 PM EDT [facility] 1 Medication Reconciliation Report [facility] Emergency Department [address] [place] [address] Phone #: ext- [phone] 08/27/2020 22:53 Patient: ZARIA CAR Sex: F [...] rce(s) Supporting Document(s) ID Date Data Source [id number] 08/27/2020 10:54:00 PM EDT [facility] 1 Medication Administration Record [facility] Emergency Department [address] [place] [address] Phone #: ext- [phone] 08/27/2020 22:53 Patient: ZARIA CAR Sex: F : 1995 Age: 25yWeight: 74.8 kgHeight/Length: 67 inBMI: 25.9ALLERGIES: No Known Drug Allergy Date/Time Medication Administered Medication OrderedStart SODIUM CHLORIDE [IV] NS IV 1000 mL Bolus: : Bolus 564168:31 08/27/2020 Dose: IV Fluids mL (X1)Sarah Wei [...] NS IV 1000 mL Bolus: : Bolus 730967:29 08/28/2020 Dose: IV Fluids mL (X1)Eros Ash, [...] rce(s) Supporting Document(s) ID Date Data Source [id number] 08/27/2020 10:54:00 PM EDT [facility] 1 General Instructions [facility] Emergency Department [address] [place] [address] Phone #: ext- [phone] 08/27/2020 22:53 Patient: [...] ADDITIONAL INFORMATIONViral Diarrhea (Adult) 2 General Instructions [facility] Emergency Department [address] [place] [address] Phone #: ext- [phone] 08/27/2020 22:53 Patient: [...] replace what is lost. 3 General Instructions [facility] Emergency Department [address] [place] [address] Phone #: ext- [phone] 08/27/2020 22:53 ---- [...] hands with soap and water or alcohol-based french tutor to prevent the spread of infection. Wash [...] Keep uncooked meats away from cooked and aztjs-vs-ezj foods.Medicines: You may use acetaminophen or NSAIDS [...] cramping, and pain worse. 4 General Instructions [facility] Emergency Department [address] [place] [address] Phone #: ext- [phone] 08/27/2020 22:53 Patient: [...] to seek medical advice 5 General Instructions [facility] Emergency Department [address] [place] [address] Phone #: ext- [phone] 08/27/2020 22:53 Patient: ZARIA CAR Sex: F [...] Rapid heart rate Seizure Stiff neck [employer]. [address] [place] [address]. All rights reserved. This information is not [...] nausea, vomiting, cramping, and 6 General Instructions [facility] Emergency Department [address] [place] [address] Phone #: ext- [phone] 08/27/2020 22:53 Patient: ZARIA CAR Sex: F [...] the smoke from others. You may use fpst-kod-oyjhpiu acetaminophen or ibuprofen for fever, muscle aching, [...] body and be dangerous to your health. Yvsb-cxr-hhoojhs remedies won't shorten the length of the illness but may be helpful for symptoms such as cough, sore throat, nasal and sinus congestion, or diarrhea. Don't use decongestants if you have high blood pressure.Follow-up careFollow up with your healthcare provider if you do not improve over the next week.Call [phone] [phone] if any of the following occur: Convulsion Feeling weak, dizzy, or like you are going to faint 7 General Instructions [facility] Emergency Department [address] [place] [address] Phone #: ext- [phone] 08/27/2020 22:53 Patient: [...] or as directed by your healthcare provider [phone] [employer]. [address] [place] [address]. All rights reserved. This information is not intended as asubstitute for professional medical care. Always follow your healthcare professional's instructions. You have been given the following additional information: Diarrhea, Viral (Adult) Viral Syndrome (Adult)(Electronically signed by Tj Turner M.D. 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 --23:04 08/27/20 Sarah Wei [...] Wei R.N.History 2 Clinical Report - Nurses [facility] Emergency Department [address] [place] [address] Phone #: ext- [phone] 08/27/2020 22:53 Patient: [...] given. Two 3 Clinical Report - Nurses [facility] Emergency Department [address] [place] [address] Phone #: ext- [phone] 08/27/2020 22:53 Patient: [...] understanding. --23:31 08/27/20 Sarah Wei R.N.23:31 08/27/2020 [facility] * Drip IV 1000 --23:31 08/27/20 Sarah Wei R.N.The patient is calm and resting quietly. --00:18 08/28/20 Sarah Wei R.N.00:17 08/28/20. BP: 130/70. MAP: 90. HR: 88. RR: 17. O2 saturation: 100% on room air. --00: Sarah Wei R.N.23:47 08/27/2020 [facility] Drip IV Discontinued: completed. Total [...] Wei R.N. 4 Clinical Report - Nurses [facility] Emergency Department [address] [place] [address] Phone #: ext- [phone] 08/27/2020 22:53 Patient: [...] Patient verbalized understanding. Written instructions provided in Scottish. No medication instructions or treatment instructions. The [...] rce(s) Supporting Document(s) ID Date Data Source [id number] 08/27/2020 10:54:00 PM EDT [facility] 1 Clinical Report - Physicians/Mid Levels [facility] Emergency Department [address] [place] [address] Phone #: ext- [phone] 08/27/2020 22:53 Patient: [...] here on 08-14-20 for same after visiting [facility] ER on 08-11, workup and CTAP were nml, referred to [facility], seen once there, and was told that [...] Allergies: 2 Clinical Report - Physicians/Mid Levels [facility] Emergency Department [address] [place] [address] Phone #: ext- [phone] 08/27/2020 22:53 Patient: [...] ABD //T// PELVIS W/ IV ONLY INSTITUTION: [facility] ORDERING PHYSICIAN: Tj Turner PATIENT HISTORY: Abdominal pain, LUQ, RLQ, Diarrhea. Accumulated DLP-675.9 mGy*cm, Estimated DLP-665.6 mGy*cm. Neg BEta. DLB152, 75mL, [id number], 09/30. Labs verified and scanned. Time Out performed. Correct patient with 2 identifiers, type and amount of contrast used, correct body part and side all verified prior to examination. Images sent [facility] for review. - RLB (Hx) / CORONAL (DICOM Hx) 3 Clinical Report - Physicians/Mid Levels [facility] Emergency De partment [address] [place] [address] Phone #: ext- [phone] 08/27/2020 22:53 Patient: ZARIA CAR Sex: F : 1995 Age: 25yEXAM: CT Abdomen and Pelvis with IV contrastCLINICAL HISTORY: Abdominal pain, LUQ, RLQ, Diarrhea. Accumulated DLP-675.9 mGy*cm, EstimatedDLP-665.6 mGy*cm. Neg BEta. [id number], 75mL, [id number], 09/30. Labs verified and scanned. Time Outperformed. Correct patient with 2 identifiers, type and amount of contrast used, correct body part and sideall verified prior to examination. Images sent [facility] for review. - RLBTECHNIQUE: Axial computed tomography images of the abdomen and pelvis with intravenous contrast. /All CT scans at this facility use dose modulation, iterative reconstruction, and/or weight-based dosing whenappropriate to reduce radiation dose to as low as reasonably achievable.CONTRAST: with intravenous contrast. With; FVF967, 75MlCOMPARISON: None provided.FINDINGS:LUNG BASES: The lung bases [...] aneurysm. 4 Clinical Report - Physicians/Mid Levels [facility] Emergency Department [address] [place] [address] Phone #: qmt- [phone] 08/27/2020 22:53 [id number] Sex[facility] F : 1995 Age: 25yBONES: No aggressive appearing osseous lesion. No acute osseous pathology evident.IMPRESSION:1. Appendix is normal.2. The patient is status post cholecystectomy.Electronically signed on Aug 28, 2020 2:04:10 AM EDT by:Wei Waddell MD, Ph.D.Diplomate, [place] [employer]. Study type: abdomen and [...] (mU/mL) Weeks post LMP 5.4-708 mU/mL 3-4 Uxmle067-26998 mU/mL 5-6 Weeks 4059-267337 mU/mL 7-8 Rtzth23535-440922 mU/mL 9-10 Weeks 34021-78743 mU/mL 12-14 Kvque21645-92823 mU/mL 15-16 Weeks 8240-81282 mU/mL 17-18 WeeksCBC w Diff: (ABILIO: 08/27/2020 [...] 0.00) 5 Clinical Report - Physicians/Mid Levels [facility] Emergency Department [address] [place] [address] Phone #: ext- [phone] 08/27/2020 22:53 Patient: [...] Male GFR Interprentation 20-49 yrs >60 mL/min Nlromb53-82 yrs >56 mL/min Normal 60-69 yrs >49 mL/min Normal 70-79yrs>42 mL/min Normal 80 and above >35 mL/min Normal Female GFRInterpretation 20-39 yrs >60 mL/min Normal 40-49 yrs >58 mL/minNormal 50-59 yrs >51 mL/min Normal 60-69 yrs >45 mL/min Bpfbqt74-11 yrs >39 mL/min Normal 80 and above [...] Negat 6 Clinical Report - Physicians/Mid Levels [facility] Emergency Department [address] [place] [address] Phone #: ext- [phone] 08/27/2020 22:53 Patient: [...] Beta-HCG, Qual Serum: (ABILIO: 08/27/2020 23:18) ( [facility] 08/27/2020 23:22) Canceled Lactic Acid: (ABILIO: 08/27/2020 [...] and spicy 7 Clinical Report - Physicians/[facility] Emergency Department [address] [place] [address] Phone #: ext- [phone] 08/27/2020 22:53 Patient: [...] Name Value Range Interpretation Code Description Data [facility] rce(s) Supporting Document(s) ID Date Data Source [id number] 08/27/2020 11:59:00 PM EDT [facility] Name Value Range Interpretation Code Description Data [facility] rce(s) Supporting Document(s) COMPREHENSIVE METABOLIC PANEL [facility] COMPREHENSIVE METABOLIC PANEL Sodium [Moles/volume] in Serum or Plasma 135 mEq/L 134 - 153 [facility] Potassium [Moles/volume] in Serum or Plasma 3.4 mEq/L 3.6 - 5.0 L [facility] Chloride [Moles/volume] in Serum or Plasma 100 mEq/L 98 - 107 [facility] Carbon dioxide, total [Moles/volume] in Serum or Plasma 23 MEQ/L 22 - 30 [facility] Glucose [Mass/volume] in Serum or Plasma 132 MG/DL 70 - 99 H [facility] BUN 9 MG/DL 7 - 21 [facility] Creatinine [Mass/volume] in Serum or Plasma 0.5 MG/DL 0.7 - 1.5 L [facility] BUN/CREAT 18 8 - 27 [facility] Protein [Mass/volume] in Serum or Plasma 7.2 G/DL 6.3 - 8.2 [facility] Albumin [Mass/volume] in Serum or Plasma 4.5 G/DL 3.9 - 5.0 [facility] Globulin [Mass/volume] in Serum by calculation 2.7 GM/DL 2.4 - 3.2 [facility] A/G RATIO 1.7 0.8 - 2.0 [facility] Calcium [Mass/volume] in Serum or Plasma 9.5 MG/DL 8.4 - 10.2 [facility] Bilirubin.total [Mass/volume] in Serum or Plasma 0.7 MG/DL 0.2 - 1.3 [facility] Alkaline phosphatase [Enzymatic activity/volume] in Serum or Plasma 90 U/L 38 - 126 [facility] Aspartate aminotransferase [Enzymatic activity/volume] in Serum or Plasma 13 U/L 5 - 40 [facility] Alanine aminotransferase [Enzymatic activity/volume] in Seru m or Plasma 10 U/L 7 - 56 [facility] Anion gap 3 in Serum or Plasma 12.0 mmol/L 8.0 - 16.0 [facility] AGE 25 yrs [facility] NON-AA GFR >60 mL/min [facility] AFR AMER GFR >60 mL/min [facility] Male GFR In terprentation [...] >32 mL/min Normal ID Date Data Source [id number] 08/27/2020 11:55:00 PM EDT [facility] Name Value Range Interpretation Code Description Data Rachel rce(s) Supporting Document(s) Lipase [Enzymatic activity/volume] in Serum or Plasma 28 U/L 13 - 60 [facility] ID Date Data Source [id number] 08/27/2020 11:45:00 PM EDT [facility] Name Value Range Interpretation Code Description Data Rachel rce(s) Supporting Document(s) CBC W/AUTOMATED DIFF [facility] COMPLETE BLOOD COUNT Leukocytes [#/volume] in Blood by Automated count 11.8 10^3/uL 4.2 - 11.0 H [facility] Erythrocytes [#/volume] in Blood by Automated count 4.34 10^6/uL 4. 20 - 5.40 [facility] Hemoglobin [Mass/volume] in Blood 14.0 g/dL 12.0 - 16.0 [facility] Hematocrit [Volume Fraction] of Blood by Automated count 41.4 % 3 7.0 - 47.0 [facility] Erythrocyte mean corpuscular volume [Entitic volume] by Auto mated count 95.4 fL 81.0 - 101 [facility] Erythrocyte mean corpuscular hemoglobin [Entitic mass] by Automated count 32.3 pg 27.0 - 34.0 [facility] Erythrocyte mean corpuscular hemoglobin concentration [Mass/volume] by Automated count 33.8 g/dL 31.0 - 36.0 [facility] Erythrocyte distribution width [Ratio] by Automated count 12.5 % 11.5 - 14.5 [facility] Platelets [#/volume] in Blood by Automated count 224 10^3/uL 150 - 45 0 [facility] Platelet mean volume [Entitic volume] in Blood by Automated count 10.4 fL 7.4 - 10.4 [facility] Neutrophils/100 leukocytes in Blood by Automated count 76.5 % 37. 0 - 80.0 [facility] Lymphocytes/100 leukocytes in Blood by Manual count 17.2 % 25.0 - 40.0 L [facility] Monocytes/100 leukocytes in Blood by Automated count 5.4 % 3.0 - 8.0 [facility] Eosinophils/100 leukocytes in Blood by Automated count 0.4 % 0.0 - 7.0 [facility] Basophils/100 leukocytes in Blood by Automated count 0.3 % 0.0 - 2.5 [facility] %IG 0.2 % 0.0 - 0.0 [facility] 0.0 % 0.0 - 0.0 [facility] al Neutrophils [#/volume] in Blood by Automated count 9.02 10^3/uL 2.00 - 6.90 H [facility] Lymphocytes [#/volume] in Blood by Automated count 2.02 10^3/uL 0.60 - 3.40 [facility] Monocytes [#/volume] in Blood by Automated count 0.63 10^3/uL 0.00 - 0.90 [facility] Eosinophils [#/volume] in Blood by Automated count 0.05 10^3/uL 0.00 - 0.70 [facility] Basophils [#/volume] in Blood by Automated count 0.03 10^3/uL 0.00 - 0.20 [facility] #IG 0.02 10^3/uL 0.00 - 0.10 [facility] #NRBC 0.00 10^3/uL 0.00 - 0.00 [facility] MANUAL DIFF SEE BELOW [facility] ital Segmented neutrophils/100 leukocytes in Blood by Manual count 82 % 37 - 80 H [facility] %LYMPH 12 % 25 - 40 [facility] %MONO 5 % 3 - 8 [facility] %EOS 1 % 0 - 7 [facility] RBC MORPH MORPH IS NORMAL [facility] ID Date Data Source [id number] 08/27/2020 11:44:00 PM EDT [facility] Name Value Range Interpretation Code Description Data Rachel rce(s) Supporting Document(s) Choriogonadotropin.intact [Units/volume] in Serum or Plasma <0.5 mIU/ mL [facility] Interpr etation: Less than 5 mU/mL: Negative 6-10 mU/mL: Borderline (suggest repeat in 48 hours) >10: Positive Approx HCG range (mU/mL) Weeks post LMP 5.4-708 mU/mL 3-4 Weeks 217-61761 mU/mL 5-6 Weeks 4059-268340 mU/mL 7-8 Weeks 78383-918705 mU/mL 9-10 Weeks 67948-80787 mU/mL 12-14 Weeks 68851-13804 mU/mL 15-16 Weeks 8240- 18697 mU/mL 17-18 Weeks ID Date Data Source [id number] 08/27/2020 11:42:00 PM EDT [facility] Name Value Range Interpretation Code Description Data Rachel rce(s) Supporting Document(s) URINALYSIS [facility] tianna URINALYSIS SOURCE Clean Catch [facility] COLOR yellow NORMAL: Yellow [facility] CLARITY clear NORMAL: Clear [facility] Specific gravity of Urine by Test strip 1.010 1.001 - 1.030 [facility] pH 6.5 5 - 9 [facility] Glucose [Mass/volume] in Urine by Test strip NORM NORMAL: Negat [facility] Bilirubin.total [Presence] in Urine by Test strip NEG NORMAL: Negative [facility] Ketones [Presence] in Urine by Test strip 50 NORMAL: Negative A [facility] Protein [Mass/volume] in Urine by Test strip 30 NORMAL: Negat [facility] Nitrite [Presence] in Urine by Test strip NEG NORMAL: Negative [facility] BLOOD NEG NORMAL: Negative [facility] Leukocyte esterase [Presence] in Urine by Test strip 25 JENNY L: Negative [facility] Urobilinogen [Mass/volume] in Urine by Test strip 1 less nathalia n 1.0 mg/dL [facility] MICROSCOPIC See Below [facility] ital WBC 1 - 3 NORMAL: NONE SEEN [facility] Erythrocytes [#/volume] in Urine by Test strip 0 - 1 NORMAL: NON E SEEN [facility] EPITHELIAL FEW NORMAL: NONE SEEN [facility] Bacteria [Presence] in Urine sediment by Light microscopy Tr rosy NORMAL: NONE SEEN [facility] Mucus [Presence] in Urine sediment by Light microscopy Trace NORMAL: NONE SEEN [facility] ID Date Data Source [id number] 08/27/2020 11:42:00 PM EDT [facility] Name Value Range Interpretation Code Description Data Rachel rce(s) Supporting Document(s) Lactate [Moles/volume] in Serum or Plasma 2.7 MMOL/L 0.2 - 2.2 H [facility] ID Date Data Source [id number] 08/27/2020 12:00:00 AM EDT [facility] Name Value Range Interpretation Code Description Data Rachel rce(s) Supporting Document(s) Carestart Rapid COVID Antigen Test Negative [facility] This lab was reported by Lakhwinder king. ID Date Data Source [id number] 08/15/2020 09:04:00 AM EDT [facility] [address] [place] [address] PHONE: [phone] FAX: [phone] Name .................. : JOCELINE Nguyễn Acct Number.................. : [id number] ROOM. ................. : TR-02 MR Number ................... : [id number] Stay type ............. : E/R Discharge Date......... ... : 08/14/20 Admit Date ......... : 08/14/20 Admit Phys .................... : COONEYNORM Date of ....... : 1995 Family Phys ................... : UNKNOWN Phone .................. : [phone] Age ................................ : 25 Film# .................. .:[id number] Sex ................................. : F Unsigned transcriptions are preliminary reports and do not represent a medical or legal document CT ABD & PELVIS W/ IV ONLY [id number] COMPLETE:08/14/20 19:22 ARLENE 8055 Reason(s): Abdominal Pain [...] 75 Isovue 370 Page 1 of 2 [facility] [address] [facility] [place] [id number] PHONE: [phone] FAX: [phone] Name .................. : JOCELINE GARCIA Chan Acct Number.................. : [id number] ROOM. ................. : TR-02 MR Number ................... : [id number] Stay type ............. : E/R Discharge Date......... ... : 08/14/20 Admit Date ......... : 08/14/20 Admit Phys .................... : COONEYNORM Date of ....... : 1995 Family Phys ................... : UNKNOWN Phone .................. : [phone] Age ................................ : 25 Film# .................. .:[id number] Sex ................................. : F Unsigned transcriptions are preliminary reports and do not represent a medical or legal document CT ABD & PELVIS W/ IV ONLY [id number] COMPLETE:08/14/20 19:22 ARLENE 8055 Reason(s): Abdominal Pain [...] rce(s) Supporting Document(s) ID Date Data Source [id number] 08/14/2020 06:54:00 PM EDT [facility] 1 OrderSheet [facility] Emergency Department [address] [place] [address] Phone #: ext- [phone] 08/14/2020 18:33 Patient: [...] Ack'd: 18:47 19:08 BurnhamContrast Only Bhavna Floyd mobile phlebotomist, Deric ER(Oxygen?(No)) PA; Gladis Tech1(IV?(Yes)) NOTES: RLQ Pain Reason for Study: Abdominal PainMEDICATION/IV/DRIP/FLUID ORDERSOrder Description Priority Entered Acknowledged InitialedNS IV : Bolus 1000 18:47 08/14/2020 Ack'd: 18:47 19:25 Oscar,mL, then 150 mL/hr Bhavna Covarrubias R.N.; R.NAzul 2 OrderSheet [facility] Emergency Department [address] [place] [address] Phone #: ext- [phone] 08/14/2020 18:33 Patient: [...] rce(s) Supporting Document(s) ID Date Data Source [id number] 08/14/2020 06:54:00 PM EDT [facility] 1 Medication Reconciliation Report [facility] Emergency Department [address] [place] [address] Phone #: ext- [phone] 08/14/2020 18:33 Patient: [...] 20 tablet. Refills: 0.Substitution permitted.Pharmacy - [facility] [address] [place] [employer] - [address] [facility] ; [place] [address]. . -- CHRISTIN Gonzalez Name Value Range Interpretation Code Description Data Rachel rce(s) Supporting Document(s) ID Date Data Source [id number] 08/14/2020 06:54:00 PM EDT [facility] 1 Medication Administration Record [facility] Emergency Department [address] [place] [address] Phone #: ext- [phone] 08/14/2020 18:33 Patient: ZARIA CAR Sex: F : 1995 Age: 25yWeight: 71.2 kgHeight/Length: 67 inBMI: 24.6ALLERGIES: No Known Drug Allergy Date/Time Medication Administered Medication OrderedStart NS [IV] NS IV : Bolus 1000 mL, then 22180:20 08/14/2020 Dose: IV Fluids mL/hrBhavna Moore R.NAzul [...] rce(s) Supporting Document(s) ID Date Data Source [id number] 08/14/2020 06:54:00 PM EDT [facility] 1 General Instructions [facility] Emergency Department [address] [place] [address] Phone #: ext- [phone] 08/14/2020 18:33 Patient: [...] 20 tablet. Refills: 0.Substitution permitted.Pharmacy - [facility] [address] [place] [facility] [id number] [place] [address] ; [place] [address]. .Follow-up:Follow up with a specialist OB. Reason for referral: Ovarian Cyst versus Adhesions?. Summary of careprovided to patient.Understanding of the discharge instructions verbalized by patient. ADDITIONAL INFORMATIONUnknown Causes of Abdominal Pain (Female) 2 General Instructions [facility] Emergency Department [address] [place] [address] Phone #: ext- [phone] 08/14/2020 18:33 Patient: [...] for taking these medicines. 3 General Instructions [facility] Emergency Department [address] [place] [address] Phone #: ext- [phone] 08/14/2020 18:33 Patient: [...] begin to improve in thenext 24 hours.Call [phone] [phone] if any of these occur: Trouble breathing Confusion Fainting or loss of consciousness Rapid heart rate 4 General Instructions [facility] Emergency Department [address] [place] [address] Phone #: ext- [phone] 08/14/2020 18:33 Patient: [...] or water and you are getting dehydrated [phone] [employer]. [address] [place] [address]. All rights reserved. This information is not intended as asubstitute for professional medical care. Always follow your healthcare professional's instructions. You have been given the following additional information: Abdominal Pain, Unknown Cause, (Female)(Electronically signed by CHRISTIN Gonzalez 08/14/2020 20:34) Name Value Range Interpretation Code Description Data Rachel rce(s) Supporting Document(s) ID Date Data Source [id number] 08/14/2020 06:54:00 PM EDT [facility] 1 Clinical Report - Nurses [facility] Emergency Department [address] [place] [address] Phone #: [phone] ext- [phone] 08/14/2020 18:33 Patient: ZARIA CAR Sex: F [...] very painful to palpation. Pt went to [facility] on Thursday morning who did lab work butultimately discharged without answer. Pt states since then has gotten worse still and does not have anappetite. Pt denies n/v/d.). She has had abdominal pain. The pain is described as located in the RLQ.No nausea, vomiting, diarrhea or constipation. 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 [...] within normallimits. 3 Clinical Report - Nurses [facility] Emergency Department [address] [place] [address] Phone #: ext- [phone] 08/14/2020 18:33 Patient: ZARIA CAR Sex: F [...] by wheelchair with IV, mask and radiology special procedure tech. --19:19 08/14/20 Bhavna Moore R.N. late entry - 19:12 08/14/20. Patient transported to CT by wheelchair with IV, mask and radiology special procedure tech. --19:20 08/14/20 Bhavna Moore R.N. 19:20 [...] Moore R.N. 4 Clinical Report - Nurses [facility] Emergency Department [address] [place] [address] Phone #: ext- [phone] 08/14/2020 18:33 Patient: [...] Patient verbalized understanding. Written instructions provided in Scottish. 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 She was discharged home and accompanied [...] rce(s) Supporting Document(s) ID Date Data Source [id number] 08/14/2020 06:54:00 PM EDT [facility] 1 Clinical Report - Physicians/Mid Levels [facility] Emergency Department [address] [place] [address] Phone #: ext- [phone] 08/14/2020 18:33 Patient: ZARIA CAR Sex: F : 1995 Age: 25y Time Seen: 18:34 08/14/2020. Arrived- By private vehicle. Historian- patient.HISTORY OF PRESENT ILLNESS Chief Complaint: ABDOMINAL PAIN and NAUSEA. This started 4 days ago; Pt states she has had RLQ abd pain since Thursday and this has progressively gotten worse. Pt states very painful to palpation. Pt went to [facility] on Thursday morning who did [...] Allergy. 2 Clinical Report - Physicians/Mid Levels [facility] Emergency Department [address] [place] [address] Phone #: ext- [phone] 08/14/2020 18:33 Patient: [...] 0.70) 3 Clinical Report - Physicians/Mid Levels [facility] Emergency Department [address] [place] [address] Phone #: ext- [phone] 08/14/2020 18:33 Patient: [...] Pain. 4 Clinical Report - Physicians/Mid Levels [facility] Emergency Department [address] [place] [address] Phone #: ext- [phone] 08/14/2020 18:33 Patient: ZARIA CAR Sex: F : 1995 Age: 25yPROGRESS AND PROCEDURESCourse of Care: 19:55 Aug 14 2020. Evaluation after observation. (Discussed CT A/P and possiblyOvarian cyst versus adhesions, pt has f/u with OB. Pt had negative HCG at [facility] on Thursday.). Patient counseled in [...] Refills: 0. Substitution permitted. Pharmacy - [facility] [address] [place] [facility] [id number] [place] [address] ; [place] [address]. . Follow-up: Follow up with a specialist OB. Reason for referral: Ovarian Cyst versus Adhesions?. Summary of care provided to patient. Understanding of the discharge instructions verbalized by patient.(Electronically signed by CHRISTIN Gonzalez 08/14/2020 20:34) 5Clinical Report - Physicians/Mid Levels [facility] Emergency Department [address] [place] [address] Phone #: ext- [phone] 08/14/2020 18:33 Patient: ZARIA CAR Sex: F : 1995 Age: 25y Name Value Range Interpretation Code Description Data Rachel rce(s) Supporting Document(s) ID Date Data Source [id number] 08/14/2020 07:46:00 PM EDT [facility] Name Value Range Interpretation Code Description Data Rachel rce(s) Supporting Document(s) Lipase [Enzymatic activity/volume] in Serum or Plasma 31 U/L 13 - 60 [facility] ID Date Data Source [id number] 08/14/2020 07:46:00 PM EDT [facility] Name Value Range Interpretation Code Description Data Rachel rce(s) Supporting Document(s) COMPREHENSIVE METABOLIC PANEL [facility] COMPREHENSIVE METABOLIC PANEL Sodium [Moles/volume] in Serum or Plasma 136 mEq/L 134 - 153 [facility] Potassium [Moles/volume] in Serum or Plasma 4.2 mEq/L 3.6 - 5.0 [facility] Chloride [Moles/volume] in Serum or Plasma 100 mEq/L 98 - 107 [facility] Carbon dioxide, total [Moles/volume] in Serum or Plasma 29 MEQ/L 22 - 30 [facility] Glucose [Mass/volume] in Serum or Plasma 86 MG/DL 70 - 99 [facility] BUN 8 MG/DL 7 - 21 [facility] Creatinine [Mass/volume] in Serum or Plasma 0.5 MG/DL 0.7 - 1.5 L [facility] BUN/CREAT 16 8 - 27 [facility] Protein [Mass/volume] in Serum or Plasma 6.6 G/DL 6.3 - 8.2 [facility] Albumin [Mass/volume] in Serum or Plasma 4.3 G/DL 3.9 - 5.0 [facility] Globulin [Mass/volume] in Serum by calculation 2.3 GM/DL 2.4 - 3.2 L [facility] A/G RATIO 1.9 0.8 - 2.0 [facility] Calcium [Mass/volume] in Serum or Plasma 9.8 MG/DL 8.4 - 10.2 [facility] Bilirubin.total [Mass/volume] in Serum or Plasma <0.7 MG/DL 0.2 - 1.3 [facility] Alkaline phosphatase [Enzymatic activity/volume] in Serum or Plasma 69 U/L 38 - 126 [facility] Aspartate aminotransferase [Enzymatic activity/volume] in Serum or Plasma 12 U/L 5 - 40 [facility] Alanine aminotransferase [Enzymatic activity/volume] in Seru m or Plasma 6 U/L 7 - 56 L [facility] Anion gap 3 in Serum or Plasma 7.0 mmol/L 8.0 - 16.0 L [facility] AGE 25 yrs [facility] Hospit al NON-AA GFR >60 mL/min [facility] ital AFR AMER GFR >60 mL/min [facility] Ho spital Male GFR In terprentation [...] >32 mL/min Normal ID Date Data Source [id number] 08/14/2020 07:33:00 PM EDT [facility] Name Value Range Interpretation Code Description Data Rachel rce(s) Supporting Document(s) Lactate [Moles/volume] in Serum or Plasma 1.4 MMOL/L 0.2 - 2.2 [facility] ID Date Data Source [id number] 08/14/2020 07:25:00 PM EDT [facility] Name Value Range Interpretation Code Description Data Rachel rce(s) Supporting Document(s) CBC W/AUTOMATED DIFF [facility] COMPLETE BLOOD COUNT Leukocytes [#/volume] in Blood by Automated count 6.7 10^3/uL 4.2 - 1 1.0 [facility] Erythrocytes [#/volume] in Blood by Automated count 4.16 10^6/uL 4. 20 - 5.40 L [facility] Hemoglobin [Mass/volume] in Blood 13.4 g/dL 12.0 - 16.0 [facility] Hematocrit [Volume Fraction] of Blood by Automated count 40.4 % 3 7.0 - 47.0 [facility] Erythrocyte mean corpuscular volume [Entitic volume] by Auto mated count 97.1 fL 81.0 - 101 [facility] Erythrocyte mean corpuscular hemoglobin [Entitic mass] by Automated count 32.2 pg 27.0 - 34.0 [facility] Erythrocyte mean corpuscular hemoglobin concentration [Mass/volume] by Automated count 33.2 g/dL 31.0 - 36.0 [facility] Erythrocyte distribution width [Ratio] by Automated count 12.5 % 11.5 - 14.5 [facility] Platelets [#/volume] in Blood by Automated count 231 10^3/uL 150 - 45 0 [facility] Platelet mean volume [Entitic volume] in Blood by Automated count 10.6 fL 7.4 - 10.4 H [facility] Neutrophils/100 leukocytes in Blood by Automated count 52.7 % 37. 0 - 80.0 [facility] Lymphocytes/100 leukocytes in Blood by Manual count 36.0 % 25.0 - 40.0 [facility] Monocytes/100 leukocytes in Blood by Automated count 8.8 % 3.0 - 8.0 H [facility] Eosinophils/100 leukocytes in Blood by Automated count 1.6 % 0.0 - 7.0 [facility] Basophils/100 leukocytes in Blood by Automated count 0.6 % 0.0 - 2.5 [facility] %IG 0.3 % 0.0 - 0.0 [facility] 0.0 % 0.0 - 0.0 [facility] al Neutrophils [#/volume] in Blood by Automated count 3.51 10^3/uL 2.00 - 6.90 [facility] Lymphocytes [#/volume] in Blood by Automated count 2.40 10^3/uL 0.60 - 3.40 [facility] Monocytes [#/volume] in Blood by Automated count 0.59 10^3/uL 0.00 - 0.90 [facility] Eosinophils [#/volume] in Blood by Automated count 0.11 10^3/uL 0.00 - 0.70 [facility] Basophils [#/volume] in Blood by Automated count 0.04 10^3/uL 0.00 - 0.20 [facility] #IG 0.02 10^3/uL 0.00 - 0.10 [facility] H ospital #NRBC 0.00 10^3/uL 0.00 - 0.00 [facility] ospital MANUAL DIFF NOT INDICATED [facility] RBC MORPH NOT INDICATED [facility] spital ID Date Data Source [id number] 07/10/2020 02:44:00 PM EST [facility] ([facility]) Name Value Range Interpretation Code Description Data Rachel rce(s) Supporting Document(s) Glucose, Fasting 94 mg/dL 70-100 [facility] ([facility]) Blood Urea Nitrogen 10 mg/dL 7-18 [facility] ([facility]) Creatinine For GFR 0.60 mg/dL 0.55-1.30 [facility] ([facility]) Glomerular Filtration Rate Laboratory test [facility] <content>Units are mL/min/1.73 m2</content>
<content></content>
<content>Chronic Kidney Disease Staging per NKF:</content>
<content></content>
<content>Stage I & II GFR >=60 Normal to Mildly Decreased</content>
<content>Stage III GFR 30- 59 Moderately Decreased</content>
<content>Stage IV GFR 15-29 Severely Decreased</content>
<content>Stage V GFR <15 Very Little GFR Left</content>
<content>ESRD GFR <15 on AC/DC REWINDER</content>
<content></content> Sodium Level 139 meq/L 136-145 [facility] ([facility]) Potassium Serum 4.3 meq/L 3.5-5.1 [facility] ([facility]) Chloride Level 105 meq/L 98-107 [facility] ([facility]) Carbon Dioxide Level 30 meq/L 21-32 [facility] ([facility]) Anion Gap 4 meq/L 8-16 [facility] ([facility]) Ast/Sgot 7 U/L 7-37 [facility] ([facility]) Calcium Level 9.5 mg/dL 8.5-10.1 [facility] ([facility]) Alt/SGPT 17 U/L 12-78 [facility] ([facility]) Bilirubin,Total 0.3 mg/dL 0.2-1.0 [facility] ([facility]) Alkaline Phosphatase 85 U/L 45-117 [facility] ( [facility]) Albumin 4.1 GM/DL 3.2-5.2 [facility] ([facility]) Total Protein 7.6 GM/DL 6.4-8.2 [facility] ([facility]) Albumin/Globulin Ratio 1.2 1.2-2.2 [facility] ([facility]) ID Date Data Source [id number] 07/10/2020 02:44:00 PM EST [facility] ([facility]) Name Value Range Interpretation Code Description Data Rachel rce(s) Supporting Document(s) White Blood Count 6.7 10 4.0-10.0 [facility] ([facility], [facility]) Red Blood Count 4.57 10 4.00-5.40 [facility] ([facility], [facility]) Hemoglobin 14.1 g/dL 12.0-15.5 [facility] ([facility] Hematocrit 45.2 % 36.0-47.0 [facility] ([facility]) Mean Corpuscular Volume 98.9 fl 80.0-96.0 M [facility]ENT ([facility], [facility]) Mean Corpuscular HGB Conc 31.2 g/dL 32.0-36.5 [facility] ([facility]) Mean Corpuscular Hemoglobin 30.9 pg 27.0-33.0 [facility] ([facility]) Red Cell Distribution Width 12.5 % 11.5-14.5 [facility] ([facility], [facility]) Platelet Count, Automated 247 10 150-450 [facility] ([facility], [facility]) Neutrophils % 65.4 % 36.0-66.0 [facility] ([facility], [facility]) Lymph % 26.9 % 24.0-44.0 [facility] ([facility]) [place] % 6.6 % 2.0-8.0 [facility] ([facility]) Eos % 0.6 % 0.0-3.0 [facility] ([facility]) Baso % 0.4 % 0.0-1.0 [facility] ([facility], [facility]) Immature Granulocyte % 0.1 % 0-3.0 [facility] ([facility], [facility]) Neutrophils # 4.4 10 1.5-8.5 [facility] ([facility]) Nucleated Red Blood Cell % 0.0 % 0-0 [facility] ([facility], [facility]) Lymph # 1.8 10 1.5-5.0 [facility] ([facility]) [place] # 0.4 10 0.0-0.8 [facility] ([facility]) Baso # 0.0 10 0.0-0.2 [facility] ([facility], [facility]) Eos # 0.0 10 0.0-0.5 [facility] ([facility], [facility]) ID Date Data Source [id number] 07/04/2020 01:30:00 PM EST [facility] ([facility]) Name Value Range Interpretation Code Description Data Rachel rce(s) Supporting Document(s) Influenza virus A RNA [Presence] in Unsp ecified specimen by Probe and target amplification method Laboratory test result [facility] ([facility]) Influenza virus B RNA [Presence] in Unsp ecified specimen by Probe and target amplification method Laboratory test result [facility] ([facility]) ID Date Data Source [id number] 07/04/2020 01:29:00 PM EST [facility] Name Value Range Interpretation Code Description Data Rachel rce(s) Supporting Document(s) SARS coronavirus 2 RNA Not Detected [facility] [place] This lab was ordered by [facility] Gonzalez rodriguez and reported by [facility]. ID Date Data Source [id number] 07/07/2020 04:20:00 PM EST [facility] Name Value Range Interpretation Code Description Data Rachel rce(s) Supporting Document(s) SARS-CoV-2, JUAN Not Detected Not Detected [facility] This nucleic acid amplification test was developed and its performancecharacteristics determined by [facility]. Nucleic acidamplification tests include RT-PCR and TMA. [...] Current Smoker completed Curre nt Smoker eCW1 ([facility]) Smoking 11/01/2020 12:00:00 AM EDT Current Smoker completed Curre nt Smoker eCW1 ([facility]) Vital Signs ID Date Data Source UNK Name Value Range Interpretation Code Description Data Source(s) Systolic blood pressure 116 mm[Hg] 116 mm[Hg] M [facility]ENT ([facility]) Diastolic blood pressure 76 mm[Hg] 76 mm[Hg] [facility] ([facility]) Respiratory rate 18 /min 18 /min [facility] ( [facility]) Oxygen saturation in Arterial blood by Pulse oximetry 97 % 97 % [facility] ([facility]) Body weight 170.38 [lb_av] 170.38 [lb_av] MEDEN T ([facility]) Body weight 77.282 kg 77.282 kg [facility] ([facility]) Body height 68 [in_i] 68 [in_i] [facility] ([facility]) 5'8" Body mass index (BMI) [Ratio] 25.9 kg/m2 25.9 k g/m2 [facility] ([facility]) Body surface area Derived from formula 1.91 m2 1.91 m2 [facility] ([facility]) Body weight 164.2 [lb_av] 164.2 [lb_av] W1 ([facility]) Body height 68 [in_i] 68 [in_i] W1 ([facility]) Body mass index (BMI) [Ratio] 24.96 kg/m2 24.96 kg/m2 W1 ([facility]) Heart rate 87 /min 87 /min W1 ([facility]) Respiratory rate 16 /min 16 /min W1 ([facility]) Body temperature 97.6 [degF] 97.6 [degF] W1 ( [facility]) Systolic blood pressure 111 mm[Hg] 111 mm[Hg] e CW1 ([facility]) Diastolic blood pressure 75 mm[Hg] 75 mm[Hg] eCW1 ([facility]) Body height 67 [in_i] 67 [in_i] [facility] ([facility]) 5'7" Body temperature 97.0 [degF] 97.0 [degF] [facility] ([facility]) Respiratory rate 16 /min 16 /min [facility] ( [facility], [facility]) Oxygen saturation in Arterial blood by Pulse oximetry 97 % 97 % [facility] ([facility], [facility]) Body weight 155.00 [lb_av] 155.00 [lb_av] MEDEN T ([facility], [facility]) Body mass index (BMI) [Ratio] 24.3 kg/m2 24.3 k g/m2 [facility]) Systolic blood pressure 115 mm[Hg] 115 mm[Hg] M EDENT ([facility]) Diastolic blood pressure 80 mm[Hg] 80 mm[Hg] [facility] ([facility]) Heart rate 95 /min 95 /min [facility] ([facility]) Body temperature 98.1 [degF] 98.1 [degF] [facility] ([facility]) Respiratory rate 16 /min 16 /min [facility] ( [facility]) Oxygen saturation in Arterial blood by Pulse oximetry 98 % 98 % [facility] ([facility]) Heart rate 87 /min 87 /min [facility] ([facility]) ID Date Data Source [id number] 01/03/2021 02:45:29 PM EDT [facility] Name Value Range Interpretation Code Description Data Source(s) WEIGHT RECORDED 160.00 pounds 160.00 pounds [facility] Height 67 Inches 067 Inches [facility]
[2021-04-15] MEDS ORDERED: KETOROLAC 30 MG/ML 1ML VIAL IV ONE (13:05)
[2021-04-15] MEDS ORDERED: ONDANSETRON 4MG/2ML VIAL IV ONE (13:05)
--- OUTSIDE RECORDS SUMMARY | 2021-04-15 13:20 | CCD ---
Author Author [facility] Organization [facility] Address Unknown Phone Unavailable Care Team Providers Care Active Directory Specialist Name Role Phone Nwogu, U John DO [...] Aiken MD Unavailable Unavailable LAROCK, Jie FERNANDA VAULT CUSTODIAN Unavailable Unavailable LAROCK, J FERNANDA VAULT CUSTODIAN Unavailable Unavailable LAROCK, J FERNANDA VAULT CUSTODIAN Unavailable Unavailable LAROCK, J FERNANDA VAULT CUSTODIAN Unavailable Unavailable LAROCK, J FERNANDA VAULT CUSTODIAN Unavailable Unavailable LAROCK, J FERNANDA VAULT CUSTODIAN Unavailable Unavailable LAROCK, J FERNANDA VAULT CUSTODIAN Unavailable Unavailable LAROCK, J FERNANDA VAULT CUSTODIAN Unavailable Unavailable LAROCK, J FERNANDA VAULT CUSTODIAN Unavailable Unavailable LAROCK, J FERNANDA VAULT CUSTODIAN Unavailable Unavailable LAROCK, J FERNANDA VAULT CUSTODIAN Unavailable Unavailable LAROCK, J FERNANDA VAULT CUSTODIAN Unavailable Unavailable LAROCK, J FERNANDA VAULT CUSTODIAN Unavailable Unavailable LAROCK, J FERNANDA VAULT CUSTODIAN Unavailable Unavailable LAROCK, J FERNANDA VAULT CUSTODIAN Unavailable Unavailable LAROCK, J FERNANDA VAULT CUSTODIAN Unavailable Unavailable LAROCK, J FERNANDA VAULT CUSTODIAN Unavailable Unavailable LAROCK, J FERNANDA VAULT CUSTODIAN Unavailable Unavailable LAROCK, J FERNANDA VAULT CUSTODIAN Unavailable Unavailable LAROCK, J FERNANDA VAULT CUSTODIAN Unavailable Unavailable LAROCK, J FERNANDA VAULT CUSTODIAN Unavailable Unavailable LAROCK, J FERNANDA VAULT CUSTODIAN Unavailable Unavailable SYMENOLuis A G LAURAOPHER PA [...] Unavailable Maring, Brent PA Unavailable Unavailable Maring, Brnet PA Unavailable Unavailable Maring, Brent PA Unavailable [...] Sage DO Unavailable Unavailable Robertshaw, Doug Unavailable [phone] Robertshaw, Doug Unavailable [phone] Robertshaw, Doug Unavailable [phone] Robertshaw, Doug Unavailable [phone] Robertshaw, Doug Unavailable [phone] Robertshaw, Doug Unavailable [phone] [facility] Unavailable Unavailable WOLFENDEN, T [...] is protected by Article 27-F of the [facility] Public Health law. If you continue you may have access to information: Regarding HIV / AIDS; Provided by facilities licensed or operated by the [facility] Office of Mental Health; or Provided by the [facility] Office for People With Developmental Disabilities. If such information is present, then the following [facility] mandated warning applies: This information has [...] law may result in a fine or long term sentence or both. A general authorization for the release of medical or other information is NOT sufficient authorization for further disc losure. Allergies and Adverse Reactions Type Description Substance Reaction Status Data Source(s ) No Known Drug Allergies No Known Drug Allergies [facility] Propensity to adverse reactions BEE STING BEE STING ANAPHYLAXIS [facility] Food allergy COCONUT COCONUT ITCHING [facility] Food allergy WATERMELON WATERMELON ITCHING [facility] Encounters Encounter Providers Location Date Indications Data Source(s ) Emergency Attender: JENNY AKERS MDConsultant: Kathy dave MD 03/31/2021 06:31:00 PM EST - 03/31/2021 11:42:00 PM EST [facility] Patient discharged. Emergency Attender: NINA Doveerrer: Kathy Aiken MD EMERGENCY ROOM-ER 03/16/2021 09:26:00 AM EDT - 03/16/2021 12:20:00 PM EDT [facility] Patient discharged. Unknown [address] [facility] [address] 02/27/2021 12:00:00 AM EDT [facility] ([facility]) Outpatient Attender: John Johnson DOConsultant: Kathy barrientos MD 12/20/2020 01:15:00 PM EDT - 12/20/2020 01:15:00 PM EDT [facility] Outpatient Attender: John Johnson [facility] 12/09 01:15:00 PM EDT [facility] ([facility] Emergency Attender: TJ TURNERConsultant: Kathy dave MD 12/19/2020 01:35:00 PM EDT - 12/19/2020 04:10:00 PM EDT [facility] Patient discharged. Emergency Attender: JENNY AKERS MDConsultant: Kathy dave MD 12/18/2020 10:14:00 PM EDT - 12/19/2020 04:00:00 AM EDT [facility] Patient discharged. Emergency Attender: JOHN ANGULO MDConsultant: Rojas Aiken MD 12/02/2020 03:34:00 PM EDT - 12/02/2020 06:51:00 PM EDT [facility] Patient discharged. Outpatient [address] [facility] [address] 11/01/2020 12:00:00 AM EDT eCW1 ([facility]) Emergency Attender: BRIDGER BLANCO PAReferrer : Kathy Aiken MD EMERGENCY ROOM-EMERGENCY ROOM 10/17/2020 11:40:00 PM EDT - 10/17/2020 11:40:00 PM EDT [facility] Patient discharged. Outpatient Attender: Sage Anguloultant: Kathy meza MD 10/15/2020 07:45:00 AM EDT - 10/15/2020 12:24:00 PM EDT [facility] Patient discharged. Outpatient Attender: Sage SULLIVANonsultant: Kathy meza MD 10/10/2020 10:41:00 AM EDT - 10/10/2020 11:41:00 AM EDT [facility] Patient discharged. Outpatient Attender: Brent WALLER 10/06/19 09:54:06 AM EDT - 10/05/2020 10:33:25 AM EDT [facility] ([facility] ) Outpatient Attender: Sage Magañaant: Kathy meza MD 10/04/2020 01:18:13 PM EDT - 10/05/2020 09:05:00 AM EDT [facility] Patient discharged. Outpatient Attender: Doug Quevedo 09/26 03:22:43 PM EDT - 09/26/2020 04:56:57 PM EDT [facility] ([facility] ) Outpatient Attender: FERNANDA FORMAN NP 12/2020 03:06:47 PM EDT - 09/15/2020 04:55:09 PM EDT [facility] ([facility] ) Emergency Attender: TJ Skysultant: Kathy dave MD 08/27/2020 10:54:00 PM EDT - 08/28/2020 02:23:00 AM EDT [facility] Patient discharged. Outpatient Attender: Brent WALLER 08/28/19 01:59:07 PM EDT - 08/27/2020 02:35:23 PM EDT [facility] ([facility] ) Emergency Attender: JENNYToby AKERS MDConsultant: [facility] 08/14/2020 06:54:00 PM EDT - 08/14/2020 08:29:00 PM EDT [facility] Patient discharged. Outpatient Attender: Mira morales 07/10/2020 12:00:00 PM EST [facility] ([facility]) Outpatient Attender: Vernon WALLER 01:23:00 PM EST - 07/04/2020 01:23:00 PM EST [facility] Immunizations Vaccine Date Status Description Data Source(s) COVID-19 VACCINE Pfizer 02/20/2021 12:00:00 AM EDT completed [facility] Vaccine Series Complete: YESThis Data wa s Submitted to [facility] Via [employer]. COVID-19 VACCINE Pfizer 01/30/2021 12:00:00 AM EDT completed [facility] Vaccine Series Complete: NOThis Data was Submitted to [facility] Via [employer]. Medications Medication Brand Name Start Date Product Form Dose Route Admi nistrative Instructions Pharmacy Instructions Status Indications Reaction Description Data Source(s) Rocephin/Ceftriaxone Sodium Injection Per 250 MG 07/10 12:00:00 AM EST completed [facility] ([facility] Medication administered onsite No Active Medications 07/10/2020 12:00:00 AM EST completed [facility] ([facility] doxycycline hyclate 100 MG Oral Capsule Doxycycline Hyclate 07/10/2020 12:00:00 AM EST active [facility] ([facility], [facility]) Insurance Providers Payer name Policy type / Coverage type Policy ID Covered green party ID Covered green party's relationship to viveros Policy Viveros Plan Information [facility] [id number] [facility] [id number] [facility] [id number] [facility] Health Plan / [id number] Self [id number] Needs Workers Comp Information WorkComp Health Claim [id number] Employee [id number] USP AT [facility] [id number] 18 [id number] [facility] [place] [id number] 01 [id number] [facility] [id number] [facility] CO UNAVAILABLE 01 UNAVAILABLE [facility] [id number] H [id number] [facility] [id number] [facility] [id number] H [id number] [facility] AT [facility] [id number] 18 [id number] [facility] [id number] S [id number] [facility] [id number] Problems, Conditions, and Diagnoses Code Display Name Description Problem Type Effective Dates Data Source(s) D92476 Personal history of nicotine dependence Personal history of nicotine dependence Diagnosis 03/31/2021 06:31:00 PM [facility] Z8742 Personal history of other diseases of th e female genital tract Personal history of other diseases of the female genital tract Diagnosis 03/31/2021 06:31:00 PM [facility] R1030 Lower abdominal pain, unspecified Lower abdomina l pain, unspecified Diagnosis 03/31/2021 06:31:00 PM [facility] R102 Pelvic and perineal pain Pelvic and perineal pain Diag nosis 03/31/2021 06:31:00 PM [facility] Z79.899 Other senior living (current) drug therapy O THER LONG-TERM (CURRENT) DRUG THERAPY Diagnosis 03/16/2021 09[facility] 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 (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) use of non-steroidal anti-inflammatories (NSAID) CLINICAL STAFF RN (CURRENT) USE OF NON-STEROIDAL NON-INFLA Diagnosis 03/16/20 09:26:00 AM [facility] Z90.49 Acquired absence of other specified part s of digestive tract ACQUIRED ABSENCE OF OTHER SPECIFIED PARTS OF DIGES Diagnosis 03/16/2021 09:26:0 0 AM [facility] F17.210 Nicotine dependence, cigarettes, uncompl icated NICOTINE DEPENDENCE, CIGARETTES, UNCOMPLICATED Diagnosis 03/16/2021 09:26:00 AM [facility] N83.01 FOLLICULAR CYST OF RIGHT OVARY FOLLICULAR CYST OF RIGH T OVARY Diagnosis 03/16/2021 09:26:00 AM [facility] R10.31 Right lower quadrant pain RIGHT LOWER QUADRANT PAIN Di agnosis 03/16/2021 09:26:00 AM [facility] Z48792 Nicotine dependence, cigarettes, uncompl icated Nicotine dependence, cigarettes, uncomplicated Diagnosis 12/19/2020 01:35:00 PM [facility] J82594 Unspecified ovarian cyst, left side Unspecified ovarian cyst, left side Diagnosis 12/19/2020 01:35:00 PM [facility] N9489 Other specified conditions a ssociated with female genital organs and menstrual cycle Other specified conditions associated wi th female genital organs and menstrual cycle Diagnosis 12/18/2020 10:14:00 PM [facility] R1032 Left lower quadrant pain Left lower quadrant pain Diag nosis 12/18/2020 10:14:00 PM [facility] R32575 Unspecified place in unspeci fied non-institutional (private) residence as the place of occurrence of the external cause Unspecified place in unspecified non-institutional (private) residence as the place of occurrence of the external cause Diagnosis 12/02/2020 03:34:00 PM [facility] [id number] Contact with other sharp obj ect(s), not elsewhere classified, initial encounter Contact with other sharp object(s), not elsewhere classified, initial encounter Diagnosis 12/02/2020 03:34:00 PM [facility] Z23 Encounter for immunization Encounter for immunization Diagnosis 12/02/2020 03:34:00 PM [facility] D18115 Nicotine dependence, other tobacco produ ct, uncomplicated Nicotine dependence, other tobacco product, uncomplicated Diagnosis 12/02 03:34:00 PM [facility] [id number] Abrasion, right foot, initial encounter Abrasion, right foot, initial encounter Diagnosis 12/02/2020 03:34:00 PM [facility] [id number] Unspecified injury of right foot, initia l encounter Unspecified injury of right foot, initial encounter Diagnosis 12/02/2020 03:34:00 PM [facility] G89.18 Other acute postprocedural pain OTHER ACUTE POST PROCEDURAL PAIN Diagnosis 10/17/2020 11:40:00 PM [facility] N13.2 Hydronephrosis with renal and ureteral c alculous obstruction HYDRONEPHROSIS WITH RENAL AND URETERAL CALCULOUS O Diagnosis 01/2021 11:40:00 PM [facility] R10.2 Pelvic and perineal pain PELVIC AND PERINEAL PAIN Diag nosis 10/17/2020 11:40:00 PM [facility] J32719 Nicotine dependence, unspecified, uncomp licated Nicotine dependence, unspecified, uncomplicated Diagnosis 10/15/2020 07:45:00 AM EDT [facility] G8929 Other chronic pain Other chronic pain Diagnosis 11/2020 07:45:00 AM EDT [facility] N809 Endometriosis, unspecified Endometriosis, unspecified Diagnosis 10/15/2020 07:45:00 AM EDT [facility] 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) Diagnosis 10/15/2020 07:45:[address] [facility] N7011 Chronic salpingitis Chronic salpingitis Diagnosis 0 10/15/2020 07:45:00 AM [facility] Z1152 ENCOUNTER FOR SCREENING FOR COVID-19 ENCOUNTER F OR SCREENING FOR COVID-19 Diagnosis 10/10/2020 10:41:00 AM [facility] O79537 Encounter for other preprocedural examin ation Encounter for other preprocedural examination Diagnosis 10/05/2020 08:15:[address] [facility] T30216 Elevated white blood cell count, unspeci fied Elevated white blood cell count, unspecified Diagnosis 08/27/2020 10:54:00 PM EDT [facility] R7402 Elevation of levels of lactic acid dehyd rogenase [LDH] Elevation of levels of lactic acid dehydrogenase [LDH] Diagnosis 08/27/2020 10:54:00 PM E [facility] B349 Viral infection, unspecified Viral infection, unspecif ied Diagnosis 08/27/2020 10:54:00 PM EDT [facility] R1012 Left upper quadrant pain Left upper quadrant pain Diag nosis 08/27/2020 10:54:00 PM EDT [facility] R1031 Right lower quadrant pain Right lower quadrant pain Di agnosis 08/14/2020 06:54:00 PM EDT [facility] N94.9 [id number] Adnexal cyst Problem 11/01/2020 12:00:00 AM EDT eCW1 ([facility]) Surgeries/Procedures Procedure Description Date Indications Data Source(s) OFFICE OUTPATIENT NEW 30 MINUTES 12/20/2020 12:00:00 A M EDT [facility] ([facility]) Therapeutic, Prophylactic Or Diagnostic Injection Subq/Im 07/10/2020 12:00:00 AM EST [facility] ([facility]) Results ID Date Data Source [id number] 04/02/2021 06:34:00 AM EST [facility] [address] [place] [address] PHONE: [phone] FAX: [phone] Name .................. : JOCELINE GARCIA Chan Acct Number.................. : [id number] ROOM. ................. : [address] Number ................... : [id number] Stay type ............. : E/R Discharge Date......... ... : 03/31/21 Admit Date ......... : 03/31/21 Admit Phys .................... : COONEYNORM Date of ....... : 1995 Family Phys ................... : JOCELYNE VEGA Phone .................. : [phone] Age ................................ : 26 Film# .................. .:[id number] Sex ................................. : F Unsigned transcriptions are preliminary reports and do not represent a medical or legal document PELVIC [id number] COMPLETE:03/31/21 22:54 ADB 06601 Reason(s): recent dx of pelvic congestion syndrome [...] 04/02/21 06:34, SCB Page 1 of 2 [place] [address] PHONE: [phone] FAX: [phone] Name .................. : JOCELINE GARCIA Chan Acct Number.................. : [id number] ROOM. ................. : TR-03 MR Number ................... : [id number] Stay type ............. : E/R Discharge Date......... ... : 03/31/21 Admit Date ......... : 03/31/21 Admit Phys .................... : COONEYNORM Date of ....... : 1995 Family Phys ................... : JOCELYNE VEGA Phone .................. : [phone] Age ................................ : 26 Film# .................. .:[id number] Sex ................................. : F Unsigned transcriptions are preliminary reports and do not represent a medical or legal document PELVIC 99373 COMPLETE:03/31/21 22:54 ADB 71612 Reason(s): recent dx of pelvic congestion syndrome Transcribe Initials: RIANNA , Transcribe Date: 04/01/21 11:49, Dictation Date: Copy for: EMERGENCY DEPT via mode Copy for: 710 MED REC DISCHARGED Page 2 of 2 Name Value Range Interpretation Code Description Data Rachel rce(s) Supporting Document(s) ID Date Data Source [id number] 04/02/2021 06:34:00 [place] [address] PHONE: [phone] FAX: [phone] Name .................. : JOCELINE Nguyễn Acct Number.................. : [id number] ROOM. ................. : TR-03 Number ................... : [id number] Stay type ............. : E/R Discharge Date......... ... : 03/31/21 Admit Date ......... : 03/31/21 Admit Phys .................... : COONEYNORM Date of ....... : 1995 Family Phys ................... : JOCELYNE GI Phone .................. : [phone] Age ................................ : 26 Film# .................. .:[id number] Sex ................................. : F Unsigned transcriptions are preliminary reports and do not represent a medical or legal document CT ABD & PELVIS W/ IV ONLY [id number] COMPLETE:03/31/21 21:07 MWB 86450 Reason(s): Abdominal Pain CT ABDOMEN AND PELVIS [...] No free air. Page 1 of 2 [facility] [address] [place] [address] PHONE: [phone] FAX: [phone] Name .................. : JOCELINE Nguyễn Acct Number.................. : [id number] ROOM. ................. : TR-03 MR Number ................... : [id number] Stay type ............. : E/R Discharge Date......... ... : 03/31/21 Admit Date ......... : 03/31/21 Admit Phys .................... : COONEYNORM Date of ....... : 1995 Family Phys ................... : JOCELYNE VEGA Phone .................. : [phone] Age ................................ : 26 Film# .................. .:[id number] Sex ................................. : F Unsigned transcriptions are preliminary reports and do not represent a medical or legal document CT ABD & PELVIS W/ IV ONLY [id number] COMPLETE:03/31/21 21:07 MWB 42656 Reason(s): Abdominal Pain NODES/RETROPERITONEUM: No adenopathy. No [...] rce(s) Supporting Document(s) ID Date Data Source [id number] 03/31/2021 06:31:00 PM EST [facility] 1 OrderSheet [facility] Emergency Department [address] [place] [address] Phone #: nps- [phone] 03/31/2021 18:26 Patient: ZARIA CAR Sex: F [...] 18:49 Vinita Akers, Jenny MD; Bhavna Moore electric refrigerator servicer, Deric ER R.N. [id number] Serum Qual STAT 18:36 03/31/2021 18:38 Oswald Moore Norma MD; Bhavna GriffithDIAGNOSTIC STUDY ORDERSOrder Description Priority Entered Acknowledged InitialedCT Abd PEL W/ IV STAT 19:49 03/31/2021 Ack'd: 19:58 20:09 BurnhamContrast Only Jenny Akers MD; Bhavna Moore electric refrigerator servicer, Deric ER(Oxygen?(No)) R.NAzul Tech1(IV?(Yes)) NOTES: periumbilical and rlq pain Reason for Study: Abdominal PainUS Pelvis STAT 21:17 03/31/2021 Ack'd: 21:17 22:20 Yolanda,(Oxygen?(No)) Jenny Akers MD; Bhavna Moore R.N. Reason for Study: recent dx of pelvic congestion syndromeMEDICATION/IV/DRIP/FLUID ORDERS 2 OrderSheet [facility] Emergency Department [address] [place] [address] Phone #: ext- [phone] 03/31/2021 18:26 Patient: ZARIA CAR Sex: F [...] IVP 50 21:18 03/31/2021 Ack'd: 22:06 22:07 Oscar,[facility] [place] Jenny Akers MD; Bhavna Moore R.NAzulMEDICATION) R.N.GENERAL ORDERSOrder Description Priority Entered Acknowledged Initialed[Electronically signed by Jenny Akers MD (23:38 03/31/2021)][Electronically signed by Vania Guerrero (23:41 03/31/2021)][Electronically locked by Vania Guerrero (23:41 03/31/2021)] Name Value Range Interpretation Code Description Data Rachel rce(s) Supporting Document(s) ID Date Data Source [id number] 03/31/2021 06:31:00 PM EST [facility] 1 Medication Reconciliation Report [facility] Emergency Department [address] [place] [address] Phone #: ext- [phone] 03/31/2021 18:26 Patient: [...] rce(s) Supporting Document(s) ID Date Data Source [id number] 03/31/2021 06:31:00 PM EST [facility] 1 Medication Administration Record [facility] Emergency Department [address] [place] [address] Phone #: ext- [phone] 03/31/2021 18:26 Patient: ZARIA CAR Sex: F : 1995 Age: 26yWeight: 74.8 kgHeight/Length: 69 inBMI: 24.4ALLERGIES: No Known Drug Allergy Date/Time Medication Administered Medication OrderedStart NS [IV] IV NS 1000 mL Bolus : Bolus 048203:53 03/31/2021 Dose: IV Fluids mL (X1)Bhavna Moore [...] rce(s) Supporting Document(s) ID Date Data Source [id number] 03/31/2021 06:31:00 PM EST [facility] 1 General Instructions [facility] Emergency Department [address] [place] [address] Phone #: ext- [phone] 03/31/2021 18:26 Patient: [...] of Abdominal Pain (Female) 2 General Instructions [facility] Department [address] [place] [address] Phone #: ext- [phone] 03/31/2021 18:26 Patient: [...] for taking these medicines. 3 General Instructions [facility] Emergency Department [address] [place] [address] Phone #: [phone] [phone]- [phone] 03/31/2021 18:26 Patient: ZARIA CAR Sex: F [...] begin to improve in thenext 24 hours.Call [phone] if any of these occur: Trouble breathing Confusion Fainting or loss of consciousness Rapid heart rate 4 General Instructions [facility] Emergency Department [address] [place] [address] Phone #: ext- [phone] 03/31/2021 18:26 Patient: [...] or water and you are getting dehydrated [id number] [employer]. All rights reserved. This information is not intended as a substitute for professional medical care. Alwaysfollow your healthcare professional's instructions. 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 --18:31 03/31/21 Lulú Mckeon R.N. 2 Clinical Report - Nurses [facility] Department [address] [place] [address] Phone #: ext- [phone] 03/31/2021 18:26 Patient: [...] normal limits. 3 Clinical Report - Nurses [facility] Department [address] [place] [address] Phone #: [phone]- [phone] 03/31/2021 18:26 Patient: ZARIA CAR Sex: F [...] Moore R.N. 4 Clinical Report - Nurses [facility] [address] [place] [address] Phone #: ext- [phone] 03/31/2021 18:26 Patient: ZARIA CAR Sex: F : 1995 Age: 26y 19:30 03/31/21. BP: 113/72. MAP: 85. HR: 82. RR: 17. O2 saturation: 99%. --19:57 03/31/21 [facility] Tech, Deric, ER Tech1 Patient transported to [place] by wheelchair with mask and bioinformatics research technician. --20:11 03/31/21 [place] electric refrigerator servicer, Deric, ER Tech1 Patient returned from [place] by wheelchair with mask and bioinformatics research technician. --20:27 03/31/21 [facility] Tech Deric ER Tech1 21:01 03/31/2021 [...] from radiology by wheelchair with mask and bioinformatics research technician. --22:49 03/31/21 Sarah Atkins R.N. 22:49 03/31/2021 Fentanyl IVP Response: symptoms have improved the patient feels better. --22:49 03/31/21 Sarah Atkins R.N.DISPOSITION / DISCHARGE 23:34 03/31/21. BP: 130/79. HR: 73. RR: 16. O2 saturation: 98%. Temp: 98.0 F. Pain level now 08/18. --23:34 03/31/21 Vania Guerrero 5 Clinical Report - Nurses [facility] Emergency Department [address] [place] [address] Phone #: ext- [phone] 03/31/2021 18:26 Patient: ZARIA CAR Sex: F : 1995 Age: 26y 23:35 03/31/2021 Site #1 removed upon discharge. Catheter intact. Bandaid applied. --23:35 03/31/21 Vania Guerrero Condition at departure: improved and stable. No learning barriers present. Discharge instructions provided and reviewed with the patient. Reviewed warnings. Reviewed medication(s). Reviewed referrals. Work note given. Patient verbalized understanding. Written instructions provided in Tu[place]. The patient was discharged by the physician. She was discharged home and unaccompanied at time of discharge. She left ambulatory and via private vehicle. 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 --23:40 03/31/21 Vanai Guerrero [place] Coma Scale: 15- eyes open- spontaneous (4); best verbal response- oriented (5); best motor response- obeys commands (6). --23:41 03/31/21 Vania Guerrero Departure time: 23:41 03/31/2021. --23:41 03/31/21 Vania Guerrero.Locked/Released at 03/31/2021 23:41 by Vania Guerrero Name Value Range Interpretation Code Description Data Rachel rce(s) Supporting Document(s) ID Date Data Source [id number] 03/31/2021 06:31:00 PM EST [facility] 1 Clinical Report - Physicians/Mid Levels [facility] Emergency Department [address] [place] [address] Phone #: ext- [phone] 03/31/2021 18:26 Patient: ZARIA CAR Sex: F [...] Temp: 98.7 F. 2 Clinical Report - Physicians/[facility] Levels [facility] Emergency Department [address] [place] [address] Phone #: ext- [phone] 03/31/2021 18:26 Patient: ZARIA CAR Sex: F [...] congestion syndromeTRANSPORTATION: WC IV? O2? Oxygen?(No) Room: [facility] W/ IV Contrast Only: (ABILIO: 03/31/2021 19:49) [...] 450) 3 Clinical Report - Physicians/Mid Levels [facility] Emergency Department [address] [place] [address] Phone #: ext- [phone] 03/31/2021 18:26 Patient: [...] Male GFR Interprentation 20-49 yrs >60 mL/min Jrcvpl62-90 yrs >56 mL/min Normal 60-69 yrs >49 mL/min Normal 70-79yrs>42 mL/min Normal 80 and above >35 mL/min Normal Female GFRInterpretation 20-39 yrs >60 mL/min Normal 40-49 yrs >58 mL/minNormal 50-59 yrs >51 mL/min Normal 60-69 yrs >45 mL/min Rvpfkk22-89 yrs >39 mL/min Normal 80 and above >32 mL/min NormalLactic Acid: (ABILIO: 03/31/2021 18:51) ( [facility] 03/31/2021 19:31) Final results Test Result Flag Units (Reference) LACTIC ACID 1.4 MMOL/L (0.2 - 2.2)Lipase: (ABILIO: 03/31/2021 18:51) ( [facility] 03/31/2021 19:36) Final results Test Result Flag Units (Reference) LIPASE 26 U/L (13 - 60) 4 Clinical Report - Physicians/Mid Levels [facility] Emergency Department [address] [place] [address] Phone #: ext- [phone] 03/31/2021 18:26 Patient: [...] NEGATIVE (NORMAL: NEGAT { KIT LOT # [id number] ){ KIT EXP DATE 06-10-22 ){ PROCEDURAL [...] pain meds. pt was instructed to f/uwith security orderly beginning of this week. pt voiced understanding of all instructions. Patient/family counseled. Disposition: Discharged. Condition: good and stable.CLINICAL IMPRESSION Right lower quadrant, suprapubic and left lower quadrant abdominal pain.No acute abdominal pain. Possible pelvic congestion syndrome. 5 Clinical Report - Physicians/Mid Levels [facility] Emergency Department [address] [place] [address] Phone #: ext- [phone] 03/31/2021 18:26 [id number] Sex: F : 1995 Age: 26yINSTRUCTIONS Do [...] rce(s) Supporting Document(s) ID Date Data Source [id number] 03/31/2021 07:42:00 PM EST [facility] Name Value Range Interpretation Code Description Data [facility] rce(s) Supporting Document(s) CBC W/AUTOMATED DIFF [facility] COMPLETE BLOOD COUNT Leukocytes [#/volume] in Blood by Automated count 6.7 10^3/uL 4.2 - 1 1.0 [facility] Erythrocytes [#/volume] in Blood by Automated count 4.26 10^6/uL 4. 20 - 5.40 [facility] Hemoglobin [Mass/volume] in Blood 13.8 g/dL 12.0 - 16.0 [facility] Hematocrit [Volume Fraction] of Blood by Automated count 41.2 % 3 7.0 - 47.0 [facility] Erythrocyte mean corpuscular volume [Entitic volume] by Auto mated count 96.7 fL 81.0 - 101 [facility] Erythrocyte mean corpuscular hemoglobin [Entitic mass] by Automated count 32.4 pg 27.0 - 34.0 [facility] Erythrocyte mean corpuscular hemoglobin concentration [Mass/volume] by Automated count 33.5 g/dL 31.0 - 36.0 [facility] Erythrocyte distribution width [Ratio] by Automated count 12.3 % 11.5 - 14.5 [facility] Platelets [#/volume] in Blood by Automated count 262 10^3/uL 150 - 45 0 [facility] Platelet mean volume [Entitic volume] in Blood by Automated count 10.4 fL 7.4 - 10.4 [facility] Neutrophils/100 leukocytes in Blood by Automated count 56.7 % 37. 0 - 80.0 [facility] Lymphocytes/100 leukocytes in Blood by Manual count 33.4 % 25.0 - 40.0 [facility] Monocytes/100 leukocytes in Blood by Automated count 7.7 % 3.0 - 8.0 [facility] Eosinophils/100 leukocytes in Blood by Automated count 1.8 % 0.0 - 7.0 [facility] Basophils/100 leukocytes in Blood by Automated count 0.3 % 0.0 - 2.5 [facility] %IG 0.1 % 0.0 - 0.0 H [facility] Hospit al %NRBC 0.0 % 0.0 - 0.0 [facility] al Neutrophils [#/volume] in Blood by Automated count 3.82 10^3/uL 2.00 - 6.90 [facility] Lymphocytes [#/volume] in Blood by Automated count 2.25 10^3/uL 0.60 - 3.40 [facility] Monocytes [#/volume] in Blood by Automated count 0.52 10^3/uL 0.00 - 0.90 [facility] Eosinophils [#/volume] in Blood by Automated count 0.12 10^3/uL 0.00 - 0.70 [facility] Basophils [#/volume] in Blood by Automated count 0.02 10^3/uL 0.00 - 0.20 [facility] #IG 0.01 10^3/uL 0.00 - 0.10 [facility] ospital #NRBC 0.00 10^3/uL 0.00 - 0.00 [facility] H ospital MANUAL DIFF NOT INDICATED [facility] RBC MORPH NOT INDICATED [facility] Ho spital ID Date Data Source [id number] 03/31/2021 07:42:00 PM EST [facility] Name Value Range Interpretation Code Description Data Rachel rce(s) Supporting Document(s) COMPREHENSIVE METABOLIC PANEL [facility] COMPREHENSIVE METABOLIC PANEL Sodium [Moles/volume] in Serum or Plasma 140 mEq/L 134 - 153 [facility] Potassium [Moles/volume] in Serum or Plasma 4.0 mEq/L 3.6 - 5.0 [facility] Chloride [Moles/volume] in Serum or Plasma 101 mEq/L 98 - 107 [facility] Carbon dioxide, total [Moles/volume] in Serum or Plasma 27 MEQ/L 22 - 30 [facility] Glucose [Mass/volume] in Serum or Plasma 103 MG/DL 70 - 99 H [facility] BUN 7 MG/DL 7 - 21 [facility] al Creatinine [Mass/volume] in Serum or Plasma 0.6 MG/DL 0.7 - 1.5 L [facility] BUN/CREAT 12 8 - 27 [facility] Protein [Mass/volume] in Serum or Plasma 7.2 G/DL 6.3 - 8.2 [facility] Albumin [Mass/volume] in Serum or Plasma 4.8 G/DL 3.9 - 5.0 [facility] Globulin [Mass/volume] in Serum by calculation 2.4 GM/DL 2.4 - 3.2 [facility] A/G RATIO 2.0 0.8 - 2.0 [facility] Calcium [Mass/volume] in Serum or Plasma 9.9 MG/DL 8.4 - 10.2 [facility] Bilirubin.total [Mass/volume] in Serum or Plasma <0.7 MG/DL 0.2 - 1.3 [facility] Alkaline phosphatase [Enzymatic activity/volume] in Serum or Plasma 88 U/L 38 - 126 [facility] Aspartate aminotransferase [Enzymatic activity/volume] in Serum or Plasma 13 U/L 5 - 40 [facility] Alanine aminotransferase [Enzymatic activity/volume] in Seru m or Plasma 7 U/L 7 - 56 [facility] Anion gap 3 in Serum or Plasma 12.0 mmol/L 8.0 - 16.0 [facility] AGE 26 yrs [facility] NON-AA GFR >60 mL/min [facility] ital AFR AMER GFR >60 mL/min [facility] Ho spital Male GFR In terprentation [...] >32 mL/min Normal ID Date Data Source [id number] 03/31/2021 07:36:00 PM [facility] Name Value Range Interpretation Code Description Data Rachel rce(s) Supporting Document(s) Lipase [Enzymatic activity/volume] in Serum or Plasma 26 U/L 13 - 60 [facility] ID Date Data Source [id number] 03/31/2021 07:31:00 PM [facility] Name Value Range Interpretation Code Description Data Rachel rce(s) Supporting Document(s) Lactate [Moles/volume] in Serum or Plasma 1.4 MMOL/L 0.2 - 2.2 [facility] ID Date Data Source [id number] 03/31/2021 07:30:00 PM [facility] Name Value Range Interpretation Code Description Data Rachel rce(s) Supporting Document(s) HCG SERUM QUAL NEGATIVE NORMAL: NEGATIVE [facility] HCG SERUM QL REENTER NEGATIVE NORMAL: NEGATIVE [facility] { KIT LOT # [id number] ){ KIT EXP DATE 06-10-22 ){ PROCEDURAL CONTROL VALID ) ID Date Data Source [id number] 03/31/2021 07:59:00 PM [facility] Name Value Range Interpretation Code Description Data Rachel rce(s) Supporting Document(s) UA REFLEX TO UA CULTURE [facility]ALYSIS SOURCE R [facility] yellow NORMAL: Yellow [facility] H [facility]spital CLARITY hazy NORMAL: Clear [facility] Ho spital Specific gravity of Urine by Test strip 1.020 1.001 - 1.030 [facility] pH 6 5 - [facility] Glucose [Mass/volume] in Urine by Test strip NORM NORMAL: Negat [facility] Bilirubin.total [Presence] in Urine by Test strip NEG NORMAL: Negative [facility] Ketones [Presence] in Urine by Test strip 5 NORMAL: Negative A [facility] Protein [Mass/volume] in Urine by Test strip 15 NORMAL: Negat [facility] Nitrite [Presence] in Urine by Test strip NEG NORMAL: Negative [facility] BLOOD NEG NORMAL: Negative [facility] Leukocyte esterase [Presence] in Urine by Test strip NEG JENNY L: Negative [facility] Urobilinogen [Mass/volume] in Urine by Test strip NOR less nathalia n 1.0 mg/dL [facility] MICROSCOPIC See Below [facility] ital WBC 0 - 1 NORMAL: NONE SEEN [facility] EPITHELIAL MODERATE NORMAL: NONE SEEN [facility] Mucus [Presence] in Urine sediment by Light microscopy 1+ NOR MAL: NONE SEEN [facility] ID Date Data Source [id number] 03/18/2021 08:23:00 AM EST [facility] Name Value Range Interpretation Code Description Data Rachel rce(s) Supporting Document(s) SARS coronavirus 2 RNA [Presence] in Res piratory specimen by JUAN with probe detection NEGATIVE [facility] This lab was ordered by [facility] a nd reported by [facility]. ID Date Data Source [id number] 03/16/2021 12:02:00 PM EDT [facility] [...] rce(s) Supporting Document(s) ID Date Data Source [id number] 03/16/2021 09:27:00 AM EDT [facility] ital TSYSORDER [id number] Name Value Range Interpretation Code Description Data Rachel rce(s) Supporting Document(s) URINE COLOR. DARK YELLOW [facility] URINE APPEARANCE CLEAR [facility] l URINE GLUCOSE (UA) NEGATIVE mg/dL NEGATIVE [facility] URINE BILIRUBIN NEGATIVE NEGATIVE [facility] URINE KETONE 5(TRACE) mg/dL NEGATIVE [facility] SPECIFIC GRAVITY,URINE >= 1.030 1.005-1.030 [facility] URINE BLOOD NEGATIVE NEGATIVE [facility] PH,URINE 5.5 5.0-9.0 [facility] URINE PROTEIN NEGATIVE mg/dL NEGATIVE [facility] tianna URINE UROBILINOGEN NORMAL(0.2-1) mg/dL 0-1 [facility] URINE NITRATE NEGATIVE NEGATIVE [facility] URINE LEUKOCYTE ESTERASE NEGATIVE NEGATIVE [facility] ID Date Data Source [id number] 03/16/2021 09:18:00 AM EDT [facility] l TSYSORDER [id number] Name Value Range Interpretation Code Description Data [facility] rce(s) Supporting Document(s) HCG URINE NEGATIVE NEGATIVE [facility] ID Date Data Source [id number] 03/16/2021 09:37:00 AM EDT [facility] l TSYSORDER [id number] Name Value Range Interpretation Code Description Data [facility] rce(s) Supporting Document(s) LACTIC ACID 0.6 mmol/L 0.4-2.0 [facility] ID Date Data Source [id number] 03/16/2021 09:37:00 AM EDT [facility] l TSYSORDER [id number] Name Value Range Interpretation Code Description Data Rachel rce(s) Supporting Document(s) GLUCOSE 92 mg/dL 74-106 [facility] BLOOD UREA NITROGEN 9 mg/dL 7-18 [facility] ital CREATININE 0.74 mg/dl 0.55-1.02 [facility] SODIUM 139 mmol/L 136-145 [facility] POTASSIUM 3.4 mmol/L 3.5-5.1 L [facility] CHLORIDE 100 mmol/L 98-107 [facility] CO2 28 mmol/L 21-32 [facility] CALCIUM 9.4 mg/dL 8.5-10.1 [facility] ANION GAP 11.0 mmol/L 5-12 [facility] GLOMERULAR FILTRATION RATE >90 mL/min [facility] GFR IS CALCULATED IN mL/min/1.73m2 JENNY L FUNCTION: >90MILDLY DECREASED: 60-89MILDY TO MODERATELY DECREASED: 45-59 MODERATELY TO SEVERELY DECREASED: 30-44SEVERELY DECREASED: 15-29RENAL FAILURE: <15 AST 12 U/L 15-37 L [facility] ALT 19 U/L 14-59 [facility] ALKALINE PHOSPHATASE 74 U/L 46-116 [facility] pital TOTAL BILIRUBIN 0.4 mg/dL 0.2-1.0 [facility] TOTAL PROTEIN 8.2 g/dL 6.4-8.2 [facility] ALBUMIN 4.4 gm/dL 3.4-5.0 [facility] ID Date Data Source [id number] 03/16/2021 09:22:00 AM EDT [facility] TSYSORDER [id number] Name Value Range Interpretation Code Description Data [facility](s) Supporting Document(s) WHITE BLOOD COUNT 7.8 K/mm3 4.0-10.0 [facility] al RED BLOOD COUNT 4.22 M/mm3 4.00-5.50 [facility] HEMOGLOBIN 13.6 gm/dL 12.0-16.0 [facility] HEMATOCRIT 40.1 % 36.0-48.8 [facility] MEAN CELL VOLUME 95.0 fl 80-96 [facility] MEAN CORPUSCULAR HEMOGLOBIN 32.2 pg 27.0-31.0 H [facility] MEAN CORPUSCULAR HGB CONC 33.9 g/dl 32.0-36.0 [facility] RED CELL DISTRIBUTION WIDTH 12.2 % 10.0-14.5 [facility] PLATELET COUNT 240 K/mm3 172-450 [facility] MEAN PLATELET VOLUME 10.4 fl 9.0-13.0 [facility] pital GRAN % 64.7 % 50-80.0 [facility] IG% 0.1 % 0.0-0.2 [facility] LYMPH % 26.1 % 25.0-50.0 [facility] MONO % 7.4 % 2.0-10.0 [facility] EOS % 1.3 % 0-5.0 [facility] BASO % 0.4 % 0.0-2.0 [facility] GRAN # 5.0 K/mm3 2.0-8.00 [facility] IG# 0.0 K/mm3 0.0-0.2 [facility] LYMPH # 2.0 K/mm3 1.0-5.0 [facility] MONO # 0.6 K/mm3 0.10-1.20 [facility] EOS # 0.1 K/mm3 0.0-0.5 [facility] BASO # 0.0 K/mm3 0.0-0.2 [facility] ID Date Data Source [id number] 02/06/2021 05:14:00 PM EDT [facility] Name Value Range Interpretation Code Description Data Rachel rce(s) Supporting Document(s) SARS coronavirus 2 RNA [Presence] in Res piratory specimen by JUAN with probe detection NEGATIVE [facility] This lab was ordered by [facility] a nd reported by [facility]. ID Date Data Source [id number] 10/29/2020 09:42:00 [place] [address] OPERATIVE SUMMARYNAME: JOCELINE Nguyễn DATE OF : 1995ATTENDING PHYS: SAGE GOMEZ DO DATE: 10/15/20 MR#: [id number] OF PROCEDURE: 10/15/2020HISTORY:Zaria is a 25-year-old female [...] was placed in the bladder for [address] [place] [address] OPERATIVE SUMMARYNAME: JOCELINE Nguyễn DATE OF : 1995ATTENDING PHYS: SAGE GOMEZ DO DATE: 10/15/20 MR#: [id number]. We then turned our attention to the [...] rce(s) Supporting Document(s) ID Date Data Source [id number] 12/20/2020 01:44:00 PM EDT [facility] ([facility]) Name Value Range Interpretation Code Description Data Rachel rce(s) Supporting Document(s) Pelvic Laboratory test result [facility] ([facility]) ID Date Data Source [id number] 12/19/2020 07:24:00 PM EDT [facility] [address] [place] [address] PHONE: [phone] FAX: [phone] Name .................. : JOCELINE DOANSLAVA Nguyễn Acct Number.................. : [id number] ROOM. ................. : TR-06 Number ................... : [id number] Stay type ............. : E/R Discharge Date......... ... : 12/19/20 Admit Date ......... : 12/19/20 Admit Phys .................... : YUE WILKINS Date of ....... : 1995 Family Phys ................... : JOCELYNE VEGA Phone .................. : [phone] Age ................................ : 25 Film# .................. .:[id number] Sex ................................. : F Unsigned transcriptions are preliminary reports and do not represent a medical or legal document TRANSVAGINAL(NON OB) [id number] COMPLETE:12/19/20 15:04 KNB 45860 Reason(s): left pelvic pain, 5.8 cm ovarian [...] 12/19/20 19:24, JWS Page 1 of 2 [facility] [address] [facility] [place] [address] PHONE: [phone] FAX: [phone] Name .................. : JOCELINE Nguyễn Acct Number.................. : [id number] ROOM. ................. : TR-06 MR Number ................... : [id number] Stay type ............. : E/R Discharge Date......... ... : 12/19/20 Admit Date ......... : 12/19/20 Admit Phys .................... : YUE IWLKINS Date of ....... : 1995 Family Phys ................... : JOCELYNE VEGA Phone .................. : [phone] Age ................................ : 25 Film# .................. .:[id number] Sex ................................. : F Unsigned transcriptions are preliminary reports and do not represent a medical or legal document TRANSVAGINAL(NON OB) [id number] COMPLETE:12/19/20 15:04 KNB 31830 Reason(s): left pelvic pain, 5.8 cm ovarian cyst on CT 12-18-20 Transcribe Initials: RIANNA , Transcribe Date: 12/19/20 18:40, Dictation Date: Copy for: EMERGENCY DEPT via mode Copy for: 710 MED REC DISCHARGED Page 2 of 2 Name Value Range Interpretation Code Description Data Rachel rce(s) Supporting Document(s) ID Date Data Source [id number] 12/19/2020 01:35:00 PM EDT [facility] 1 OrderSheet [facility] Emergency Department [address] [place] [address] Phone #: ext- [phone] 12/19/2020 13:29 Patient: ZARIA CAR Sex: F : 1995 Age: 25yWEIGHT:72.5 kg (S)ALLERGIES: No Known Drug AllergyCHIEF COMPLAINT: pelvic painDIAGNOSIS: Cyst of ovaryLAB ORDERSOrder Description Priority Entered Acknowledged InitialedDIAGNOSTIC STUDY ORDERSOrder Description Priority Entered Acknowledged InitialedUS STAT 14:12/19/2020 14:45 Araceli,TRANSVAGINAL Tj Turner [place] R.N.(NON OB) MAzulDAzul;(Oxygen?(No)) Reason for Study: left pelvic pain, 5.8 cm ovarian cyst on CT 3-20-96TYGQIOICPF/IV/DRIP/FLUID ORDERSOrder Description Pr iority Entered Acknowledged InitialedNS [...] rce(s) Supporting Document(s) ID Date Data Source [id number] 12/19/2020 01:35:00 PM EDT [facility] 1 Medication Reconciliation Report [facility] Emergency Department [address] [place] [address] Phone #: ext- [phone] 12/19/2020 13:29 Patient: ZARIA CAR Sex: F [...] 14 tablet. Refills: 0. Substitution permitted.Pharmacy - [id number] - [address], [place] [id number]. . -- Tj Turner M.D. Name Value Range Interpretation Code Description Data Rachel cordero(s) Supporting Document(s) ID Date Data Source [id number] 12/19/2020 01:35:00 PM EDT [facility] 1 Medication Administration Record [facility] Emergency Department [address] [place] [address] Phone #: ext [phone] 12/19/2020 13:29 [id number] Sex: F : 1995 Age: 25yWeight: 72.5 kgHeight/Length: 67 inBMI: 25.1ALLERGIES: No Known Drug Allergy Date/Time Medication Administered Medication OrderedStart NS [IV] NS IV 500 mL Bolus: : Bolus 17165:[id number] 12/19/2020 Dose: IV Fluids mL, then 150 [...] rce(s) Supporting Document(s) ID Date Data Source [id number] 12/19/2020 01:35:00 PM EDT [facility] 1 General Instructions [facility] Emergency Department [address] [place] [address] Phone #: ext- [phone] 12/19/2020 13:29 [id number] Sex: F : 1995 Age: 25ySingle left ovarian cyst (complex, hemorrhagic vs. endometrioma). No torsion of ovary.INSTRUCTIONS Drink plenty of fluids. Do not smoke. No alcohol. (YOU HAVE AN APPOINTMENT TOMORROW AT [facility] AT 13:[address] JOHNSON).Warnings: Further evaluation is necessary in order to conduct further tests ([facility] 12/20 AT 13:05HRS). It is very [...] 14 tablet. Refills: 0. Substitution permitted.Pharmacy - [facility] #[id number] - [address], [place] [id number]. FaxNumber: .Follow-up:Return to the emergency department as needed. Follow up with an mineral mixer tomorrow as scheduled.Reason for referral: evaluation and treatment. Summary of care provided to patient via paper.Understanding of the discharge instructions verbalized by patient. Expected course of illness, dischargeinstructions, activity level, diet, prescriptions x1, follow-up appointment and risks and benefits of treatmentreviewed with patient and understanding verbalized. Agrees to plan of care.Follow-up with: [facility], , , [address] [place], [address] Follow up tomorrow as scheduled. Reason for referral: evaluation and treatment. Summary of careprovided to patient via paper. 2 General Instructions [facility] Emergency Department [address] [place] [address] Phone #: ext- [phone] 12/19/2020 13:29 Patient: ZARIA CAR Sex: Tio [...] pain, your healthcare provider may recommend using [id number] pain medicine. If needed, your provide may [...] check if a cyst 3 General Instructions [facility] Emergency Department [address] [place] [address] Phone #: ext- [phone] 12/19/2020 13:29 Patient: [...] Weakness, dizziness, or fainting Abnormal vaginal bleeding [phone] [employer] [place] [address]. All rights reserved. This information is not intended as asubstitute for professional medical care. Always follow your healthcare professional's instructions. You have been given the following additional information: Ovaria n Cyst(Electronically signed by Tj Turner M.D. 12/19/2020 16:39) Name Value Range Interpretation Code Description Data Rachel rce(s) Supporting Document(s) ID Date Data Source [id number] 12/19/2020 01:35:00 PM EDT [facility] 1 Clinical Report - Nurses [facility] Emergency Department [address] [place] [address] Phone #: ext- [phone] 12/19/2020 13:29 Patient: ZARIA CAR Sex: F : 1995 Age: 25yTRIAGEArrived by private vehicle. Historian: patient. Accompanied by family. ( presents with c/o abd. pain, ptwas just seen here lastnight and instructed to call ACTIVE DIRECTORY SYSTEMS ADMINISTRATOR and to come back if no relief with meds. calledclinic and soonest appt 01/05).Triage time: 13:40 12/19/2020. Acuity: LEVEL 4.Chief Complaint: ABDOMINAL PAIN.Alert. No acute distress.This started yesterday.Treatment CHIEF SAFETY OFFICER:Took Tylenol and ibuprofen. Seen within the last [...] RN.ADDITIONAL SURGERIES:Cholecystectomy.. 2 Clinical Report - Nurses [facility] Emergency Department [address] [place] [address] Phone #: ext- [phone] 12/19/2020 13:29 Patient: [...] verified and 3 Clinical Report - Nurses [facility] Emergency Department [address] [place] [address] Phone #: ext- [phone] 12/19/2020 13:29 Patient: [...] Charles R.N. 4 Clinical Report - Nurses [facility] Emergency Department [address] [place] [address] Phone #: ext- [phone] 12/19/2020 13:29 [id number] Sex[facility] F : 1995 Age: 25y Condition at departure: improved. No learning barriers present. Reviewed warnings. Reviewed medication(s). Treatments reviewed. Reviewed referrals. Written instructions provided in Tuvaluan. The patient was discharged by the physician. She was discharged home. She left ambulatory and via private vehicle. 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 --16:09 12/19/20 Georgia Charles R.N. 16:09 12/19/20. Pain level now: 0/10. --16:10 12/19/20 Georgia Charles R.N.Locked/Released at 12/19/2020 16:10 by Georgia Charles R.N. Name Value Range Interpretation Code Description Data Rachel rce(s) Supporting Document(s) ID Date Data Source [id number] 12/19/2020 01:35:00 PM EDT [facility] 1 Clinical Report - Physicians/Mid Levels [facility] Emergency Department [address] [place] [address] Phone #: ext- [phone] 12/19/2020 13:29 Patient: [...] US done, was told to f/u w [facility], called today and couldn't get in [...] Allergies: 2 Clinical Report - Physicians/Mid Levels [facility] Emergency Department [address] [place] [address] Phone #: ext- [phone] 12/19/2020 13:29 Patient: ZARIA CAR Sex: F [...] better; we got her an appt w [facility] in [place] tomorrow at 13:05 hrs; d/c instructions given, [...] controlled; 3 Clinical Report - Physicians/Mid Levels [facility] Emergency Department [address] [place] [address] Phone #: ext- [phone] 12/19/2020 13:29 Patient: [...] alcohol. (YOU HAVE AN APPOINTMENT TOMORROW AT [facility] AT 13:[address] JOHNSON). Warnings: Further evaluation is necessary in order to conduct further tests ([facility] ON 12/20 AT 13:05 HRS). It is [...] tablet. Refills: 0. Substitution permitted. Pharmacy - [id number] - [address], [place] [id number]. . Follow-up: Return to the emergency department as needed. Follow up with an mineral mixer tomorrow as scheduled. Reason for referral: evaluation and treatment. Summary of care provided to patient via paper. Understanding of the discharge instructions verbalized by patient. Expected course of illness, discharge instructions, activity level, diet, prescriptions x1, follow-up appointment and risks and benefits of treatment reviewed with patient and understanding verbalized. Agrees to plan of care. Follow-up with: [facility], , , [address] [place] [address], [facility] Follow up tomorrow as scheduled. Reason for referral: evaluation and treatment. Summary of care provided to patient via paper. 4 Clinical Report - Physicians/Mid Levels [facility] Emergency Department [address] [place] [address] Phone #: ext- [phone] 12/19/2020 13:29 Patient: ZARIA CAR Sex: F : 1995 Age: 25y(Electronically signed by Tj Turner M.D. 12/19/2020 16:39) Name Value Range Interpretation Code Description Data Rachel rce(s) Supporting Document(s) ID Date Data Source [id number] 12/19/2020 09:06:00 AM EDT [facility] [address] [place] [address] PHONE: [phone] FAX: [phone] Name .................. : JOCELINE GARCIA Chan Acct Number.................. : [id number] [facility] ................. [facility] Number ................... : [id number] Stay type ............. : E/R Discharge Date......... ... : 12/19/20 Admit Date ......... : 12/18/20 Admit Phys .................... : COONEYNORM Date of ....... : 1995 Family Phys ................... : JOCELYNE VEGA Phone .................. : [phone] Age ................................ : 25 Film# .................. .:[id number] Sex ................................. : F Unsigned transcriptions are preliminary reports and do not represent a medical or legal document CT ABD & PELVIS W/ IV ONLY [id number] COMPLETE:12/19/20 04:47 ARLENE [address] Reason(s): Abdominal Pain CT ABDOMEN AND PELVIS [...] the lesion. No Page 1 of 2 [place] [address] PHONE: [phone] FAX: [phone] Name .................. : JOCELINE GARCIA Chan Acct Number.................. : [id number] ROOM. ................. : [facility]34 Number ................... : [id number] Stay type ............. : E/R Discharge Date......... ... : 12/19/20 Admit Date ......... : 12/18/20 Admit Phys .................... : ADDISON Date of ....... : Family Phys ................... : JOCELYNE VEGA Phone .................. : [phone] Age ................................ : 25 Film# .................. .:[id number] Sex ................................. : F Unsigned transcriptions are preliminary reports and do not represent a medical or legal document CT ABD & PELVIS W/ IV ONLY [id number] COMPLETE:12/19/20 04:47 ARLENE [id number] Reason(s): Abdominal Pain nodularity. Moderately prominent enhancing [...] rce(s) Supporting Document(s) ID Date Data Source [id number] 12/19/2020 09:06:00 AM EDT [facility] [address] [place] [address] PHONE: [phone] FAX: [phone] Name .................. : JOCELINE Nguyễn Acct Number.................. : [id number] ROOM. ................. : [facility] MR Number ................... : [id number] Stay type ............. : E/R Discharge Date......... ... : 12/19/20 Admit Date ......... : 12/18/20 Admit Phys .................... : COONEYNORM Date of ....... : 1995 Family Phys ................... : JOCELYNE [employer] Phone .................. : [phone] Age ................................ : 25 Film# .................. .:[id number] Sex ................................. : F Unsigned transcriptions are preliminary reports and do not represent a medical or legal document ABDOMEN MULTIPLE VIEW 28068 COMPLETE:12/19/20 04:47 ARLENE 93016 Reason(s): Abdominal Pain ABDOMINAL RADIOGRAPH SUPINE AND [...] 08:53, Dictation Date: Page 1 of 2 [facility] [address] [place] [address] PHONE: [phone] FAX: [phone] Name .................. : JOCELINE Nguyễn Acct Number.................. : [id number] [facility] ................. [facility] Number ................... : [id number] Stay type ............. : E/R Discharge Date......... ... : 12/19/20 Admit Date ......... : 12/18/20 Admit Phys .................... : COONEYNORM Date of ....... : 1995 Family Phys ................... : JOCELYNE VEGA Phone .................. : [phone] Age ................................ : 25 Film# .................. .:[id number] Sex ................................. : F Unsigned transcriptions are preliminary reports and do not represent a medical or legal document ABDOMEN MULTIPLE VIEW 13262 COMPLETE:12/19/20 04:47 ARLENE 81144 Reason(s): Abdominal Pain Copy for: EMERGENCY DEPT via modem Copy for: 710 MED REC DISCHARGED Page 2 of 2 Name Value Range Interpretation Code Description Data Rachel rce(s) Supporting Document(s) ID Date Data Source [id number] 12/18/2020 10:14:00 PM EDT [facility] 1 OrderSheet [facility] Emergency Department [address] [place] [address] Phone #: ext- [phone] 12/18/2020 22:21 Patient: ZARIA CAR Sex: F : 1995 Age: 25yWEIGHT:72.5 kg HEIGHT:67 inches BMI:25.1ALLERGIES: No Known Drug AllergyCHIEF COMPLAINT: abdominal painDIAGNOSIS: Cyst of ovaryLAB ORDERSOrder Description Priority Entered Acknowledged InitialedUrinalysis (Clean STAT 22:49 12/18/2020 Ack'd: 22:50 22:51 Lynn Guerrero [facility]) Jenny Akers MD; Vania GuerreroCG Urine Qual [...] Jenny Akers MD; Vania Guerrero 2 OrderSheet [facility] Emergency Department [address] [place] [address] Phone #: ext- [phone] 12/18/2020 22:21 Patient: [...] rce(s) Supporting Document(s) ID Date Data Source [id number] 12/18/2020 10:14:00 PM EDT [facility] 1 Medication Reconciliation Report [facility] Emergency Department [address] [place] [address] Phone #: ext- [phone] 12/18/2020 22:21 Patient: [...] rce(s) Supporting Document(s) ID Date Data Source [id number] 12/18/2020 10:14:00 PM EDT [facility] 1 Medication Administration Record [facility] Emergency Department [address] [place] [address] Phone #: [phone]- [phone] 12/18/2020 22:21 Patient: ZARIA CAR Sex: F : 1995 Age: 25yWeight: 72.5 kgHeight/Length: 67 inBMI: 25.1ALLERGIES: No Known Drug Allergy Date/Time Medication Administered Medication OrderedStart IV NS IV NS 1000 mL Bolus : Bolus [id number] 12/18/2020 Dose: IV Fluids mL (X1)Vania Guerrero, [...] rce(s) Supporting Document(s) ID Date Data Source [id number] 12/18/2020 10:14:00 PM EDT [facility] 1 General Instructions [facility] Emergency Department [address] [place] [address] Phone #: ext- [phone] 12/18/2020 22:21 Patient: ZARIA CAR Sex: F : 1995 Age: 25ySingle left ovarian cyst.pelvic congestion.INSTRUCTIONSNo strenuous activity. Do not work for three days.Drink plenty of fluids.(Please also follow up with your primary care physician. return if worse or any new symptoms. taketylenol andmotrin for pain. please call your occupational work experience teacher and be seen in the next 2 [...] patient. ADDITIONAL INFORMATIONOvarian Cysts 2 General Instructions [facility] Emergency Department [address] [place] [address] Phone #: ext- [phone] 12/18/2020 22:21 Patient: [...] pain, your healthcare provider may recommend using jqsr-aof-guucazn pain medicine. If needed, your provide may [...] provider, or as advised. 3 General Instructions [facility] Emergency Department [address] [place] [address] Phone #: [phone] sdo- [phone] 12/18/2020 22:21 Patient: ZARIA CAR Sex: F : 1995 Age: 25yWhen to seek medical adviceCall your healthcare provider right away if any of these occur: Pain worsens or fails to get better with home treatment Fever of 100.4F (38C) or higher (or other fever amount directed by your healthcare provider) Nausea and vomiting Weakness, dizziness, or fainting Abnormal vaginal bleeding [id number] [employer]. [address] [place] [address]. All rights reserved. This information is not intended as asubstitute for professional medical care. Always follow your healthcare professional's instructions. You have been given the following additional information: Ovarian Cyst No strenuous activity. Do not work for three days.(Electronically signed by Jenny Akers MD 12/19/2020 03:56) Name Value Range Interpretation Code Description Data Rachel rce(s) Supporting Document(s) ID Date Data Source [id number] 12/18/2020 10:14:00 PM EDT [facility] 1 Clinical Report - Nurses [facility] Emergency Department [address] [place] [address] Phone #: ext- [phone] 12/18/2020 22:21 Patient: ZARIA CAR Sex: F [...] dinner (Chicken tenders and macaroni and cheese).Treatment CHIEF SAFETY OFFICER:(Tylenol-1500). --22:47 12/18/20 Rosie Guerrero2:42 12/18/20. BP: 123/74. [...] Vania Guerrero. 2 Clinical Report - Nurses [facility] Emergency Department [address] [place] [address] Phone #: ext- [phone] 12/18/2020 22:21 Patient: ZARIA CAR Sex: F [...] PROGRESS NOTES 3 Clinical Report - Nurses [facility] Emergency Department [address] [place] [address] Phone #: ext- [phone] 12/18/2020 22:21 Patient: ZARIA CAR Sex: F [...] understanding. --00:32 12/19/20 Zoya Guerrero transported to [place] by wheelchair with mask and tech. --00:32 12/19/20 Vania Guerrero00:41 12/19/2020 Ofirmev * IV 1 gm --00:41 12/19/20 Vania Guerrero00:42 12/19/2020 IV Fluids IV NS via IV site #1 Discontinued: bag #1 infused. Total amount infused: 1000mL. IV patency e stablished. IV site checked: no pain, redness, or swelling. IV flushed thoroughly. --00: oZya Guerrero returned from [place] by wheelchair with mask and tech. --00:42 12/19/20 Vania Guerrero01:28 12/19/20. BP: 118/68. HR: 70. RR: 16. O2 saturation: 99%. Pain level now /10. --01:28 12/19/20Vania Guerrero 4 Clinical Report - Nurses [facility] Emergency Department [address] [place] [address] Phone #: ext- [phone] 12/18/2020 22:21 Patient: [...] Patient verbalized understanding. Written instructions provided in Tuvaluan. The patient was discharged by the physician. [...] rce(s) Supporting Document(s) ID Date Data Source [id number] 12/18/2020 10:14:00 PM EDT [facility] 1 Clinical Report - Physicians/Mid Levels [facility] Emergency Department [address] [place] [address] Phone #: ext- [phone] 12/18/2020 22:21 Patient: [...] [facility] Emergency [facility] [address] [place] [address] Phone #: ext- [phone] 12/18/2020 22:21 Patient: ZARIA CAR Sex: F [...] 2.5) 3 Clinical Report - Physicians/Mid Levels [facility] Emergency Department [address] [place] [address] Phone #: ext- [phone] 12/18/2020 22:21 Patient: ZARIA CAR Sex: F [...] Male GFR Interprentation 20-49 yrs >60 mL/min Gmkglk09-15 yrs >56 mL/min Normal 60-69 yrs >49 mL/min Normal 70-79yrs>42 mL/min Normal 80 and above >35 mL/min Normal Female GFRInterpretation 20-39 yrs >60 mL/min Normal 40-49 yrs >58 mL/minNormal 50-59 yrs >51 mL/min Normal 60-69 yrs >45 mL/min Xmbcyp31-65 yrs >39 mL/min Normal 80 and above >32 mL/min NormalLactic Acid: (ABILIO: 12/18/2020 23:35) ( MagRcvd 12/18/2020 23:50) Final results Test Result Flag Units (Reference) LACTIC ACID 1.3 MMOL/L (0.2 - 2.2)Lipase: (ABILIO: 12/18/2020 23:35) ( MagRcvd 12/19/2020 00:07) Final results Test Result Flag Units (Reference) LIPASE 31 U/L (13 - 60)Urinalysis: (ABILIO: 12/18/2020 22:51) ( MsgRcvd 12/18/2020 23:10) Final results Test Result Flag Units (Reference) URINALYSIS URINALYSIS 4 Clinical Report - Physicians/Mid Levels [facility] Emergency Department [address] [place] [address] Phone #: ext- [phone] 12/18/2020 22:21 Patient: [...] NEGATIVE (NORMAL: NEGAT { KIT LOT # [id number] ){ KIT EXP DATE 05.10.22 ){ PROCEDURAL [...] 5.2x3.5cm. I encouraged her to f/u with security orderly this week and to return if worseor any new symptoms. Patient/family counseled. Disposition: Discharged. Condition: good and stable.CLINICAL IMPRESSION Single left ovarian cyst. pelvic congestion.INSTRUCTIONS 5 Clinical Report - Physicians/Mid Levels [facility] Emergency Department [address] [place] [address] Phone #: ext- [phone] 12/18/2020 22:21 [id number] Sex: F : 1995 Age: 25y No strenuous activity. Do not work for three days. Drink plenty of fluids. (Please also follow up with your primary care physician. return if worse or any new symptoms. take tylenol andmotrin for pain. please call your occupational work experience teacher and be seen in the next 2 [...] rce(s) Supporting Document(s) ID Date Data Source [id number] 12/19/2020 12:07:00 AM EDT [facility] Name Value Range Interpretation Code Description Data Rachel rce(s) Supporting Document(s) Lipase [Enzymatic activity/volume] in Serum or Plasma 31 U/L 13 - 60 [facility] ID Date Data Source [id number] 12/19/2020 12:07:00 AM EDT [facility] Name Value Range Interpretation Code Description Data Rachel rce(s) Supporting Document(s) COMPREHENSIVE METABOLIC PANEL [facility] COMPREHENSIVE METABOLIC PANEL Sodium [Moles/volume] in Serum or Plasma 138 mEq/L 134 - 153 [facility] Potassium [Moles/volume] in Serum or Plasma 3.8 mEq/L 3.6 - 5.0 [facility] Chloride [Moles/volume] in Serum or Plasma 103 mEq/L 98 - 107 [facility] Carbon dioxide, total [Moles/volume] in Serum or Plasma 27 MEQ/L 22 - 30 [facility] Glucose [Mass/volume] in Serum or Plasma 85 MG/DL 70 - 99 [facility] BUN 10 MG/DL 7 - 21 [facility] Creatinine [Mass/volume] in Serum or Plasma 0.6 MG/DL 0.7 - 1.5 L [facility] BUN/CREAT 17 8 - 27 [facility] al Protein [Mass/volume] in Serum or Plasma 6.4 G/DL 6.3 - 8.2 [facility] Albumin [Mass/volume] in Serum or Plasma 4.1 G/DL 3.9 - 5.0 [facility] Globulin [Mass/volume] in Serum by calculation 2.3 GM/DL 2.4 - 3.2 L [facility] A/G RATIO 1.8 0.8 - 2.0 [facility] Calcium [Mass/volume] in Serum or Plasma 9.7 MG/DL 8.4 - 10.2 [facility] Bilirubin.total [Mass/volume] in Serum or Plasma <0.7 MG/DL 0.2 - 1.3 [facility] Alkaline phosphatase [Enzymatic activity/volume] in Serum or Plasma 83 U/L 38 - 126 [facility] Aspartate aminotransferase [Enzymatic activity/volume] in Serum or Plasma 13 U/L 5 - 40 [facility] Alanine aminotransferase [Enzymatic activity/volume] in Seru m or Plasma 7 U/L 7 - 56 [facility] Anion gap 3 in Serum or Plasma 8.0 mmol/L 8.0 - 16.0 [facility] AGE 25 yrs [facility] al NON-AA GFR >60 mL/min [facility] ital AFR AMER GFR >60 mL/min [facility] Ho spital Male GFR In terprentation [...] >32 mL/min Normal ID Date Data Source [id number] 12/18/2020 11:50:00 PM EDT [facility] Name Value Range Interpretation Code Description Data Rachel rce(s) Supporting Document(s) Lactate [Moles/volume] in Serum or Plasma 1.3 MMOL/L 0.2 - 2.2 [facility] ID Date Data Source [id number] 12/18/2020 11:44:00 PM EDT [facility] Name Value Range Interpretation Code Description Data Rachel rce(s) Supporting Document(s) CBC W/AUTOMATED DIFF [facility] COMPLETE BLOOD COUNT Leukocytes [#/volume] in Blood by Automated count 8.3 10^3/uL 4.2 - 1 1.0 [facility] Erythrocytes [#/volume] in Blood by Automated count 3.98 10^6/uL 4. 20 - 5.40 L [facility] Hemoglobin [Mass/volume] in Blood 13.0 g/dL 12.0 - 16.0 [facility] Hematocrit [Volume Fraction] of Blood by Automated count 38.8 % 3 7.0 - 47.0 [facility] Erythrocyte mean corpuscular volume [Entitic volume] by Auto mated count 97.5 fL 81.0 - 101 [facility] Erythrocyte mean corpuscular hemoglobin [Entitic mass] by Automated count 32.7 pg 27.0 - 34.0 [facility] Erythrocyte mean corpuscular hemoglobin concentration [Mass/volume] by Automated count 33.5 g/dL 31.0 - 36.0 [facility] Erythrocyte distribution width [Ratio] by Automated count 13.2 % 11.5 - 14.5 [facility] Platelets [#/volume] in Blood by Automated count 203 10^3/uL 150 - 45 0 [facility] Platelet mean volume [Entitic volume] in Blood by Automated count 10.8 fL 7.4 - 10.4 H [facility] Neutrophils/100 leukocytes in Blood by Automated count 59.2 % 37. 0 - 80.0 [facility] Lymphocytes/100 leukocytes in Blood by Manual count 29.7 % 25.0 - 40.0 [facility] Monocytes/100 leukocytes in Blood by Automated count 8.2 % 3.0 - 8.0 H [facility] Eosinophils/100 leukocytes in Blood by Automated count 2.1 % 0.0 - 7.0 [facility] Basophils/100 leukocytes in Blood by Automated count 0.4 % 0.0 - 2.5 [facility] %IG 0.4 % 0.0 - 0.0 H [facility] Hospit al %NRBC 0.0 % 0.0 - 0.0 [facility] al Neutrophils [#/volume] in Blood by Automated count 4.89 10^3/uL 2.00 - 6.90 [facility] Lymphocytes [#/volume] in Blood by Automated count 2.45 10^3/uL 0.60 - 3.40 [facility] Monocytes [#/volume] in Blood by Automated count 0.68 10^3/uL 0.00 - 0.90 [facility] Eosinophils [#/volume] in Blood by Automated count 0.17 10^3/uL 0.00 - 0.70 [facility] Basophils [#/volume] in Blood by Automated count 0.03 10^3/uL 0.00 - 0.20 [facility] #IG 0.03 10^3/uL 0.00 - 0.10 [facility] ospital #NRBC 0.00 10^3/uL 0.00 - 0.00 [facility] H ospital MANUAL DIFF NOT INDICATED [facility] RBC MORPH NOT INDICATED [facility] Ho spital ID Date Data Source [id number] 12/18/2020 11:10:00 PM EDT [facility] Name Value Range Interpretation Code Description Data Rachel rce(s) Supporting Document(s) HCG URINE QUAL NEGATIVE NORMAL: NEGATIVE [facility] HCG URINE QL REENTER NEGATIVE NORMAL: NEGATIVE [facility] { KIT LOT # [id number] ){ KIT EXP DATE 05.10.22 ){ PROCEDURAL CONTROL VALID ) ID Date Data Source [id number] 12/18/2020 11:09:00 PM EDT [facility] Name Value Range Interpretation Code Description Data Rachel rce(s) Supporting Document(s) [facility] SOURCE R [facility] yellow NORMAL: Yellow [facility] H ospital CLARITY turbid NORMAL: Clear [facility] Ho spital Specific gravity of Urine by Test strip 1.020 1.001 - 1.030 [facility] pH 6.5 5 - [facility] Glucose [Mass/volume] in Urine by Test strip NORM NORMAL: Negat [facility] Bilirubin.total [Presence] in Urine by Test strip NEG NORMAL: Negative [facility] Ketones [Presence] in Urine by Test strip 5 NORMAL: Negative [facility] Protein [Mass/volume] in Urine by Test strip NEG NORMAL: Negat [facility] Nitrite [Presence] in Urine by Test strip NEG NORMAL: Negative [facility] BLOOD NEG NORMAL: Negative [facility] LEUK EST 25 NORMAL: Negative [facility] Urobilinogen [Mass/volume] in Urine by Test strip NOR less nathalia n 1.0 mg/dL [facility] MICROSCOPIC See Below [facility] ital WBC 1 - [address]: [address] [facility] Erythrocytes [#/volume] in Urine by Test strip 0 - 1 NORMAL: NON E SEEN [facility] EPITHELIAL MANY NORMAL: NONE SEEN [facility] Bacteria [Presence] in Urine sediment by Light microscopy 1+ SMALL NORMAL: NONE SEEN [facility] Mucus [Presence] in Urine sediment by Light microscopy 1+ NOR MAL: NONE SEEN [facility] Amorphous sediment [Presence] in Urine sediment by Light dany roscopy 1+ NORMAL: NONE SEEN [facility] ID Date Data Source [id number] 12/02/2020 03:34:00 PM EDT [facility] 1 OrderSheet [facility] Emergency Department [address] [place] [address] Phone #: ext- [phone] 12/02/2020 15:29 Patient: ZARIA CAR Sex: F [...] Kristopher Robledo RN (18:51 12/02/2020)] 2 OrderSheet [facility] Emergency Department [address] [place] [address] Phone #: ext- [phone] 12/02/2020 15:29 Patient: ZARIA CAR Sex: F : 1995 Age: 25y[Electronically signed by Bridger Serra P.A.-C (20:16 12/02/2020)][Electronically locked by Kristopher Robledo RN (18:51 12/02/2020)] Name Value Range Interpretation Code Description Data Rachel rce(s) Supporting Document(s) ID Date Data Source [id number] 12/02/2020 03:34:00 PM EDT [facility] 1 Medication Reconciliation Report [facility] Emergency Department [address] [place] [address] Phone #: ext- [phone] 12/02/2020 15:29 Patient: ZARIA CAR Sex: F [...] Dispense 21 capsule.Refills: 0. Substitution permitted.Pharmacy - [facility] [id number] [facility] [employer] - [id number] [place] [address] ; [place] [address]. .gabapentin 100 mg capsule Take 1 capsule three times a day for 3 days -- Dispense 9 capsule. Refills:0. Substitution permitted.Pharmacy - [facility] [address] [facility] [employer] - [address] [facility] ; [place] [address]. . -- Bridger Serra P.A.-C Name Value Range Interpretation Code Description Data Rachel rce(s) Supporting Document(s) ID Date Data Source [id number] 12/02/2020 03:34:00 PM EDT [place] [address] Medication Administration Record [facility] Emergency Department [address] [place] [address] Phone #: ext- [phone] 12/02/2020 15:29 Patient: ZARIA CAR Sex: F [...] rce(s) Supporting Document(s) ID Date Data Source [id number] 12/02/2020 03:34:00 PM EDT [facility] [facility] 1 General Instructions [facility] Emergency Department [address] [place] [address] Phone #: ext- [phone] 12/02/2020 15:29 Patient: ZARIA CAR Sex: F [...] Dispense 21 capsule.Refills: 0. Substitution permitted.Pharmacy - [facility] [place] [address] ; [place] [address]. .gabapentin 100 mg capsu le Take 1 capsule three times a day for 3 days -- Dispense 9 capsule. Refills:0. Substitution permitted.Pharmacy - [facility] [place] [address] ; [place] [address]. .Follow-up:Follow up with your healthcare provider in about two days if not better. Call for an appointment.Understanding of the discharge instructions verbalized by patient. ADDITIONAL INFORMATIONAbrasions 2 General Instructions [facility] Emergency Department [address] [place] [address] Phone #: ext- [phone] 12/02/2020 15:29 Patient: ZARIA CAR Sex: F [...] drainage from the wound 3 General Instructions [facility] Emergency Department [address] [place] [address] Phone #: ext- [phone] 12/02/2020 15:29 Patient: ZARIA CAR Sex: F : 1995 Age: 25y Bleeding from the wound that does not stop after a few minutes of steady, firm pressure Decreased ability to move any body part near the wound [employer]. [address] [place] [address]. All rights reserved. This information is not [...] bandage Red streaks surround the wound area [id number] [employer]. [address] [place] [address]. All rights reserved. This information is not intended as asubstitute for professional medical care. Always follow your healthcare professional's instructions. You have been given the following additional information: Abrasions 4 General Instructions [facility] Emergency Department [address] [place] [address] Phone #: ext- [phone] 12/02/2020 15:29 Patient: ZARIA CAR Sex: F : 1995 Age: 25yDressing ChangeYou may walk and bear weight as tolerated. Do not work for five days (To facilitate recovery).(Electronically signed by Bridger Serra P.A.-C 12/02/2020 20:16) Name Value Range Interpretation Code Description Data Rachel rce(s) Supporting Document(s) ID Date Data Source [id number] 12/02/2020 03:34:00 PM EDT [facility] 1 Clinical Report - Nurses [facility] Emergency Department [address] [place] [address] Phone #: ext- [phone] 12/02/2020 15:29 Patient: ZARIA CAR Sex: F : 1995 Age: 25yTRIAGEArrived by private vehicle. Historian: patient.Acuity: LEVEL 4.Chief Complaint: INJURY TO THE RIGHT FOOT.Alert. No acute distress.Occurred 03:33 12/02/2020. The patient sustained a laceration (razor). ( PT reports this morning [id number] am she stepped out of the shower unto a blake razor blade. She reports a moderate amount ofbleeding between her great and 2nd toe on her right foot. She is unsure of her last tetanus shot.).Treatment CHIEF SAFETY OFFICER:None.SEPSIS SCREEN: SIRS SCREEN NEGATIVE. SEPSIS SCREEN NEGATIVE. [...] SURGERIES:Cholecystectomy..Exploratory laparotomy. 2 Clinical Report - Nurses [facility] Emergency Department [address] [place] [address] Phone #: ext- [phone] 12/02/2020 15:29 [id number] Sex[facility] F : 1995 Age: 25y Salpingectomy. [...] on patient. --15:39 12/02/20 Sharron Jimenez R.N.PHYSICAL [id number] 12/02/20. Ambulatory to room.GENERAL / NEURO / [...] for evaluation- chart flagged. --17:00 12/02/20 Kristopher oRbledo RN 3 Clinical Report - Nurses [facility] Emergency Department [address] [place] [address] Phone #: ext- [phone] 12/02/2020 15:29 Patient: ZARIA CAR Sex: F : 1995 Age: 25y 16:52 12/02/20. BP: 130/82. MAP: 98. HR: 75. RR: 16. O2 saturation: 100%. Temp: 98.7 F (oral). Pain level now: 10/18. --17:00 12/02/20 Kristopher Robledo RN 17:08 12/02/2020 TDAP IM 0.5 mL given(Lot#: [id number], expiration date: 08/14/2022, Social Services Coordinator: [employer]). Given in the left deltoid. Allergies verified [...] antibiotic ointment (bacitracin). Secured with rosy bandage. (8609). --18:10 12/02/20 Kristopher Robledo RN 18:21 12/02/2020 [...] Patient verbalized understanding. Written instructions provided in Tuvaluan. The patient was discharged by the physician dietitian assistant. She was discharged home. She left ambulatory and via private vehicle. Patient driving. --18:51 12/02/20 Kristopher Robledo RN.Locked/Released at 12/02/2020 18:51 by Kristopher Robledo RN Name Value Range Interpretation Code Description Data Rachel rce(s) Supporting Document(s) ID Date Data Source [id number] 12/02/2020 03:34:00 PM EDT [facility] 1 Clinical Report - Physicians/Mid Levels [facility] Emergency Department [address] [place] [address] Phone #: ext- [phone] 12/02/2020 15:29 Patient: ZARIA CAR Sex: F [...] complaints 2 Clinical Report - Physicians/Mid Levels [facility] Emergency Department [address] [place] [address] Phone #: ext- [phone] 12/02/2020 15:29 [id number] Sex: F : 1995 Age: 25y or [...] restrictions. 3 Clinical Report - Physicians/Mid Levels [facility] Emergency Department [address] [place] [address] Phone #: ext- [phone] 12/02/2020 15:29 Patient: ZARIA CAR Sex: F [...] capsule. Refills: 0. Substitution permitted. Pharmacy - [email or web address] [place] [address] ; [place] [address]. . gabapentin 100 mg capsule Take 1 capsule three times a day for 3 days -- Dispense 9 capsule. Refills: 0. Substitution permitted. Pharmacy - [facility] [place] [address] ; [place] [address]. . Follow-up: Follow up with your healthcare provider in about two days if not better. Call for an appointment. Understanding of the discharge instructions verbalized by patient.(Electronically signed by Bridger Serra P.A.-C 12/02/2020 20:16) Name Value Range Interpretation Code Description Data Rachel rce(s) Supporting Document(s) ID Date Data Source [id number] 10/31/2020 01:46:00 PM EDT [facility] Patient: ZARIA CARo chan Report - Physicians/Mid Levels HospitalsVisitID: [id number] [place] [address] [phone], FRegistranemours [facility], [place] Date/Time: 10/17/2020 22:30 Weight:72.5 kg. Height/Length:66 inches. [...] 10/18/2020 00:46) Addenda for ZARIA CAR VisitID: [id number] Date: 10/17/2020 10/31/2020 13:31Lab results reviewed. Communicated information to patient. Script for Flagyl 500mg po BID for 5 days called to [facility] [place]. Pt aware that script called in. (Electronically signed by Maryuri Dasilva R.N. - 10/31/2020 13:31) Name Value Range Interpretation Code Description Data Rachel rce(s) Supporting Document(s) ID Date Data Source [id number] 10/18/2020 07:17:00 AM EDT [facility] [...] Value Range Interpretation Code Description Data Rachel [facility](s) Supporting Document(s) ID Date Data Source [id number] 10/18/2020 03:55:00 AM EDT [facility] Patient: ZARIA CAR Observatio n Report - Physicians/Mid Levels . [facility].VisitID: [id number] [place] [address] [phone], FRegistration Date/Time: 10/17/2020 22:30 Weight:72.5 kg. Height/Length:66 [...] rce(s) Supporting Document(s) ID Date Data Source [id number] 10/20/2020 06:10:00 AM EDT [facility] Name Value Range Interpretation Code Description Data Rachel rce(s) Supporting Document(s) CHLAMYDIA TRACHOMATIS, JUAN Negative Negative [facility] NEISSERIA GONORRHOEAE, JUAN Negative Negative [facility] Performed at: [facility] [address] [place], [place] [id number] Director: Magalie Foster MD, Phone: [phone] ID Date Data Source [id number] 10/19/2020 04:10:00 PM EDT [facility] Name Value Range Interpretation Code Description Data Rachel rce(s) Supporting Document(s) MAREN SPECIES Negative Negative [facility] GARDNERELLA VAGINALIS Positive Negative H [facility] spital TRICHOMONAS VAGINALIS Negative Negative [facility] Performed at: [facility] [address] [place], [place] [id number] Director: Magalie Foster MD, Phone: [phone] ID Date Data Source [id number] 10/19/2020 04:05:00 PM EDT [facility] Name Value Range Interpretation Code Description Data Rachel rce(s) Supporting Document(s) Maren species Negative Negative [facility] Gardnerella vaginalis Positive Negative Abnormal ( applies to non-numeric results) [facility] Trichomonas vaginalis Negative Negative [facility] ID Date Data Source [id number] 10/20/2020 06:05:00 AM EDT [facility] Name Value Range Interpretation Code Description Data Rachel rce(s) Supporting Document(s) Chlamydia/GC [facility] TESTS RESULT FLAG UNI TS REF RANGE LAB C trachomatis, JUAN Negative (Negative) 01N gonorrhoeae, JUAN Negative (Negative) 01 FLAG LEGEND: L-Low Normal,H-High Normal,LL-Alert Low,HH-Alert High <-Panic Low,>-Panic High,A-Abnormal,AA-Critical Abnormal Performed at:01 RN [facility] [address] [address] Magalie Foster MD, ID Date Data Source [id number] 10/17/2020 11:51:00 PM EDT [facility] l TSYSORDER [id number] Name Value Range Interpretation Code Description Data [facility](s) Supporting Document(s) GLUCOSE 85 mg/dL 74-106 [facility] BLOOD UREA NITROGEN 8 mg/dL 7-18 [facility] ital CREATININE 0.70 mg/dL 0.6-1.0 [facility] SODIUM 140 mmol/L 136-145 [facility] POTASSIUM 3.8 mmol/L 3.5-5.1 [facility] CHLORIDE 102 mmol/L 98-107 [facility] CO2 31 mmol/L 21-32 [facility] CALCIUM 9.1 mg/dL 8.5-10.1 [facility] ANION GAP 7.0 mmol/L 5-12 [facility] GLOMERULAR FILTRATION RATE >90 mL/min [facility] GFR IS CALCULATED IN mL/min/1.73m2 JENNY L FUNCTION: >90MILDLY DECREASED: 60-89MILDY TO MODERATELY DECREASED: 45-59 MODERATELY TO SEVERELY DECREASED: 30-44SEVERELY DECREASED: 15-29RENAL FAILURE: <15 AST 80 U/L 15-37 H [facility] ALT 70 U/L 12-78 [facility] ALKALINE PHOSPHATASE 80 U/L 46-116 [facility] pital TOTAL BILIRUBIN 0.2 mg/dL 0.2-1.0 [facility] TOTAL PROTEIN 7.9 g/dl 6.4-8.2 [facility] ALBUMIN 4.1 gm/dL 3.4-5.0 [facility] ID Date Data Source [id number] 10/17/2020 11:51:00 PM EDT [facility] l TSYSORDER [id number] Name Value Range Interpretation Code Description Data Rachel rce(s) Supporting Document(s) MAGNESIUM 1.8 mg/dL 1.8-2.4 [facility] ID Date Data Source [id number] 10/17/2020 11:51:00 PM EDT [facility] l TSYSORDER [id number] Name Value Range Interpretation Code Description Data Rachel rce(s) Supporting Document(s) LIPASE 108 U/L 73-393 [facility] ID Date Data Source [id number] 10/17/2020 11:49:00 PM EDT [facility] l TSYSORDER [id number] Name Value Range Interpretation Code Description Data Rachel rce(s) Supporting Document(s) PARTIAL THROMBOPLASTIN TIME 26.3 SECONDS 21.2-27.3 [facility] ID Date Data Source [id number] 10/17/2020 11:49:00 PM EDT [facility] TSYSORDER [id number] Name Value Range Interpretation Code Description Data Rachel rce(s) Supporting Document(s) PROTHROMBIN TIME (PATIENT) 9.6 SECONDS 9.1-11.6 [facility] INR 0.92 0.87-1.06 [facility] ID Date Data Source [id number] 10/17/2020 11:32:00 PM EDT [facility] TSYSORDER [id number] Name Value Range Interpretation Code Description Data Rachel rce(s) Supporting Document(s) WHITE BLOOD COUNT 8.1 K/mm3 4.0-10.0 [facility]LOOD COUNT 4.33 M/mm3 4.00-5.50 [facility] l HEMOGLOBIN 13.8 gm/dL 12.0-16.0 [facility] HEMATOCRIT 42.4 % 36.0-48.8 [facility] MEAN CELL VOLUME 97.9 fl 80-96 [facility] MEAN CORPUSCULAR HEMOGLOBIN 31.9 pg 27.0-31.0 H [facility] MEAN CORPUSCULAR HGB CONC 32.5 g/dl 32.0-36.0 [facility] RED CELL DISTRIBUTION WIDTH 12.8 % 10.0-14.5 [facility] PLATELET COUNT 228 K/mm3 172-450 [facility] MEAN PLATELET VOLUME 10.0 fl 9.0-13.0 [facility] pital GRAN % 52.8 % 50-80.0 [facility] IG% 0.0 % 0.0-0.2 [facility] LYMPH % 39.3 % 25.0-50.0 [facility] MONO % 6.5 % 2.0-10.0 [facility] EOS % 1.0 % 0-5.0 [facility] BASO % 0.4 % 0.0-2.0 [facility] GRAN # 4.3 K/mm3 2.0-8.00 [facility] IG# 0.0 K/mm3 0.0-0.2 [facility] LYMPH # 3.2 K/mm3 1.0-5.0 [facility] MONO # 0.5 K/mm3 0.10-1.20 [facility] EOS # 0.1 K/mm3 0.0-0.5 [facility] BASO # 0.0 K/mm3 0.0-0.2 [facility] ID Date Data Source [id number] 10/17/2020 11:28:00 PM EDT [facility] TSYSORDER [id number] Name Value Range Interpretation Code Description Data Rachel rce(s) Supporting Document(s) URINE RBC 5-10 /hpf 0-3 H [facility] URINE EPITHELIAL CELLS 1+ /hpf 0 [facility] ID Date Data Source [id number] 10/17/2020 11:26:00 PM EDT [facility] ital TSYSORDER [id number] Name Value Range Interpretation Code Description Data Rachel rce(s) Supporting Document(s) URINE COLOR. [facility] URINE APPEARANCE CLEAR [facility] l URINE GLUCOSE (UA) NEGATIVE mg/dL NEGATIVE [facility] URINE BILIRUBIN NEGATIVE NEGATIVE [facility] URINE KETONE NEGATIVE mg/dL NEGATIVE [facility] SPECIFIC GRAVITY,URINE 1.020 1.005-1.030 [facility] URINE BLOOD 2+(MODERATE) NEGATIVE [facility] PH,URINE 6.5 5.0-9.0 [facility] URINE PROTEIN NEGATIVE mg/dL NEGATIVE [facility] tianna URINE UROBILINOGEN NORMAL(0.2-1) mg/dL 0-1 [facility] URINE NITRATE NEGATIVE NEGATIVE [facility] URINE LEUKOCYTE ESTERASE NEGATIVE NEGATIVE [facility] ID Date Data Source [id number] 10/17/2020 11:15:00 PM EDT [facility] TSYSORDER [id number] Name Value Range Interpretation Code Description Data Rachel rce(s) Supporting Document(s) HCG URINE NEGATIVE NEGATIVE [facility] ID Date Data Source [id number] 10/10/2020 03:35:00 PM EDT [facility] Name Value Range Interpretation Code Description Data Rachel rce(s) Supporting Document(s) ABO group [Type] in Blood A [facility] Rh [Type] in Blood POSITIVE [facility] AB SCREEN NEGATIVE NORMAL: NEGATIVE [facility] { ABO/RH REENTER A POSITIVE{ AB SCREEN RE-ENTER NEGATIVE ID Date Data Source [id number] 10/10/2020 02:44:00 PM EDT [facility] Name Value Range Interpretation Code Description Data Rachel rce(s) Supporting Document(s) HCG SERUM QUAL NEGATIVE NORMAL: NEGATIVE [facility] HCG SERUM QL REENTER NEGATIVE NORMAL: NEGATIVE [facility] { KIT LOT # [id number] ){ KIT EXP DATE 03.10.22 ){ PROCEDURAL CONTROL VALID ) ID Date Data Source [id number] 10/10/2020 10:59:00 AM EDT [facility] Name Value Range Interpretation Code Description Data Rachel rce(s) Supporting Document(s) CBC NO DIFF [facility] COMPLETE BLOOD COUNT Leukocytes [#/volume] in Blood by Automated count 6.9 10^3/uL 4.2 - 1 1.0 [facility] Erythrocytes [#/volume] in Blood by Automated count 4.31 10^6/uL 4. 20 - 5.40 [facility] Hemoglobin [Mass/volume] in Blood 13.9 g/dL 12.0 - 16.0 [facility] Hematocrit [Volume Fraction] of Blood by Automated count 42.1 % 3 7.0 - 47.0 [facility] Erythrocyte mean corpuscular volume [Entitic volume] by Auto mated count 97.7 fL 81.0 - 101 [facility] Erythrocyte mean corpuscular hemoglobin [Entitic mass] by Automated count 32.3 pg 27.0 - 34.0 [facility] Erythrocyte mean corpuscular hemoglobin concentration [Mass/volume] by Automated count 33.0 g/dL 31.0 - 36.0 [facility] Erythrocyte distribution width [Ratio] by Automated count 12.8 % 11.5 - 14.5 [facility] Platelets [#/volume] in Blood by Automated count 249 10^3/uL 150 - 45 0 [facility] Platelet mean volume [Entitic volume] in Blood by Automated count 9.9 fL 7.4 - 10.4 [facility] ID Date Data Source [id number] 10/10/2020 10:22:00 AM EDT [facility] Name Value Range Interpretation Code Description Data Rachel e(s) Supporting Document(s) SARS coronavirus 2 RNA Not Detected [facility] This lab was ordered by [facility] michael and reported by [facility]. ID Date Data Source [id number] 10/12/2020 02:07:00 PM EDT [facility] Name Value Range Interpretation Code Description Data Rachel rce(s) Supporting Document(s) SARS-CoV-2, JUAN Not Detected Not Detected [facility] This nucleic acid amplification test was developed and its performancecharacteristics determined by [facility]. Nucleic acidamplification tests include RT-PCR and [...] assay. SARS-CoV-2, JUAN 2 DAY TAT Performed [facility] ID Date Data Source [id number] 09/18/2020 02:15:00 PM EDT [facility] Name Value Range Interpretation Code Description Data Rachel rce(s) Supporting Document(s) COVID-19 RT-PCR NASAL SWAB Not Detected Not Detected [facility] A not detected (negative) test result fo [...] developed and its performance characteristics determined by [facility] and verified at [facility]. It has not been cleared or approved by the U.S. Food and Drug Administration for diagnostic use. This test has been authorized by FDA under an EUA for use by authorized laboratories. Results should be used in conjunction with clinical findings, and should not form the sole basis for a diagnosis or treatment decision. Methods: SARS-CoV-2 Multiplex RT-PCR Assay ID Date Data Source [id number] 09/15/2020 04:00:00 PM EDT [facility] Name Value Range Interpretation Code Description Data Rachel rce(s) Supporting Document(s) SARS-CoV-2 (COVID-19) N gene [Presence] in Respiratory specimen by JUAN with probe detection NEGATIVE [facility] This lab was ordered by Lak[facility] Lancaster and reported by [facility]. ID Date Data Source [id number] 09/15/2020 12:00:00 AM EDT [facility] Name Value Range Interpretation Code Description Data Rachel rce(s) Supporting Document(s) C[facility] Rapid COVID Antigen Test Negative [facility] This lab was reported by [facility]. ID Date Data Source [id number] 08/28/2020 02:04:00 AM EDT [address] [place] [address] ---------NAME--------- NUMBER SEX AGE ADMIT DISC. XRAY# F/C TYPE JOCELINE GARCIA N [id number] F 25 08/27/20 08/28/20 [id number] SB2 E/R DATE OF : 1995 M/R# [id number] #: [id number] TR-06 LOCATION: EMERGENCY DEPT TRANSCRIBED: 08/28/20 2:[address] ABD //T// PELVIS W/ IV ONLY [id number] COMPLETED:08/28/20 2:48 RLB 9170 Reason(s): abdominal pain, LUQ, RLQ, Diarrhea PHYSICIAN: YUE CLAUDETTE == R A D I O L O G Y R E P O R T PATIENT HISTORY:Abdominal pain, LUQ, RLQ, Diarrhea. Accumulated DLP-675.9 mGy*cm, EstimatedDLP-665.6 mGy*cm. Neg BEta. [id number], 75mL, [id number], 09/30. Labs verified andscanned.Time Out performed. Correct patient with 2 identifiers, type and amount ofcontrast used, correct body part and side all verified prior to examination.Images sent to[facility] for review. - RLB / CORONAL (DICOM Hx)EXAM: CT Abdomen and Pelvis with IV contrastCLINICAL HISTORY:Abdominal pain, LUQ, RLQ, Diarrhea. Accumulated DLP-675.9mGy*cm, Estimated DLP-665.6 mGy*cm. Neg BEta. [id number], 75mL, [id number], 09/30. Labsverified and scanned. Time Out performed. [...] low as reasonably achievable.CONTRAST:with intravenous contrast. With; QGS834, 75MlCOMPARISON:None provided.FINDINGS:LUNG BASES: The lung bases appear [...] rce(s) Supporting Document(s) ID Date Data Source [id number] 08/28/2020 10:45:00 AM EDT [facility] Name Value Range Interpretation Code Description Data Rachel rce(s) Supporting Document(s) COVID-19 RT-PCR VAULT CUSTODIAN SWAB TNP [facility] Sample tube arrived without Viral Transp ort Media, unable to perform test. No evidence of sample leakage. Sample tube arrived without Viral Transport Media, unable to perform test. No evidence of sample leakage. ID Date Data Source [id number] 08/28/2020 10:45:00 AM EDT [facility] Name Value Range Interpretation Code Description Data Rachel rce(s) Supporting Document(s) Non-Conformance #[facility] Sample tube arrived without Viral Transp ort Media, unable to perform test. No evidence of sample leakage. ID Date Data Source [id number] 08/28/2020 10:45:00 AM EDT [facility] Name Value Range Interpretation Code Description Data Rachel rce(s) Supporting Document(s) REJECTED SPECIMEN #N[employer] [facility] Sample tube arrived without Viral Transp ort Media, unable to perform test. No evidence of sample leakage. ID Date Data Source [id number] 08/27/2020 10:54:00 PM EDT [facility] 1 OrderSheet [facility] Department [address] [place] [address] Phone #: ext- [phone] 08/27/2020 22:53 Patient: ZARIA CAR [facility]#: [id number] Sex: F : 1995 Age: 25yWEIGHT:74.8 kg (S) HEIGHT:67 inches (S) BMI:25.9ALLERGIES: No Known Drug AllergyCHIEF COMPLAINT: abdominal painDIAGNOSIS: Viral disease, DiarrheaLAB ORDERSOrder Description Priority Entered Acknowledged InitialedCBC w Diff STAT 23:08/27/2020 23:20 MelYue harrell, Tjsoledad Metza R.N. M.D.;CMP STAT 23:08/27/2020 23:20 MelYue harrell, Tj Metza R.N. M.D.;Lipase STAT 23:08/27/2020 23:20 Melaracemo, Yue, Tj Sarah R.N. M.D.;Urinalysis (Clean STAT 23:08/27/2020 23:20 Melaragno,Catch) Yeu, Tjsoledad Metza R.N. M.D.;Beta-HCG, Qual STAT 23:08/27/2020 [...] 1000 Julianerin, Tj Metza R.N. 2 OrderSheet [facility] Department [address] [place] [address] Phone #: ext- [phone] 08/27/2020 22:53 Patient: [...] rce(s) Supporting Document(s) ID Date Data Source [id number] 08/27/2020 10:54:00 PM EDT [facility] 1 Medication Reconciliation Report [facility] Emergency Department [address] [place] [address] Phone #: ext- [phone] 08/27/2020 22:53 Patient: ZARIA CAR Sex: F [...] rce(s) Supporting Document(s) ID Date Data Source [id number] 08/27/2020 10:54:00 PM EDT [facility] 1 Medication Administration Record [facility] Department [address] [place] [address] Phone #: ext- [phone] 08/27/2020 22:53 Patient: ZARIA CAR Sex: F : 1995 Age: 25yWeight: 74.8 kgHeight/Length: 67 inBMI: 25.9ALLERGIES: No Known Drug Allergy Date/Time Medication Administered Medication OrderedStart SODIUM CHLORIDE [IV] NS IV 1000 mL Bolus: : Bolus [id number] 08/27/2020 Dose: IV Fluids mL (X1)Sarah Wei [...] NS IV 1000 mL Bolus: : Bolus [id number] 08/28/2020 Dose: IV Fluids mL (X1)Eros Ash, [...] rce(s) Supporting Document(s) ID Date Data Source [id number] 08/27/2020 10:54:00 PM EDT [facility] 1 General Instructions [facility] Department [address] [place] [address] Phone #: ext- [phone] 08/27/2020 22:53 Patient: [...] ADDITIONAL INFORMATIONViral Diarrhea (Adult) 2 General Instructions [facility] Emergency Department [address] [place] [address] Phone #: ext- [phone] 08/27/2020 22:53 Patient: [...] replace what is lost. 3 General Instructions [facility] Department [address] [place] [address] Phone #: ext- [phone] 08/27/2020 22:53 ---- [...] hands with soap and water or alcohol-based hotel registration clerk to prevent the spread of infection. Wash [...] Keep uncooked meats away from cooked and qtkpw-yy-lxl foods.Medicines: You may use acetaminophen or NSAIDS [...] cramping, and pain worse. 4 General Instructions [facility] Emergency Department [address] [place] [address] Phone #: ext- [phone] 08/27/2020 22:53 Patient: [...] to seek medical advice 5 General Instructions [facility] Emergency Department [address] [place] [address] Phone #: ext- [phone] 08/27/2020 22:53 Patient: ZARIA CAR Sex: F [...] Rapid heart rate Seizure Stiff neck [employer]. [address] [place] [address]. All rights reserved. This information is not [...] nausea, vomiting, cramping, and 6 General Instructions [facility] Emergency Department [address] [place] [address] Phone #: ext- [phone] 08/27/2020 22:53 Patient: ZARIA CAR Sex: F [...] the smoke from others. You may use jlpl-yiv-ncbpibf acetaminophen or ibuprofen for fever, muscle aching, [...] body and be dangerous to your health. Vsue-duy-rdcbtcl remedies won't shorten the length of the illness but may be helpful for symptoms such as cough, sore throat, nasal and sinus congestion, or diarrhea. Don't use decongestants if you have high blood pressure.Follow-up careFollow up with your healthcare provider if you do not improve over the next week.Call [phone] if any of the following occur: Convulsion Feeling weak, dizzy, or like you are going to faint 7 General Instructions [facility] Emergency Department [address] [place] [address] Phone #: ext- [phone] 08/27/2020 22:53 Patient: [...] or as directed by your healthcare provider [phone] [employer]. [address] [place] [address]. All rights reserved. This information is not intended as asubstitute for professional medical care. Always follow your healthcare professional's instructions. You have been given the following additional information: Diarrhea, Viral (Adult) Viral Syndrome (Adult)(Electronically signed by Tj Turner M.D. 08/28/2020 05:33) Name Value Range Interpretation Code Description Data Rachel rce(s) Supporting Document(s) ID Date Data Source [id number] 08/27/2020 10:54:00 PM EDT [facility] 1 Clinical Report - Nurses [facility] Emergency Department [address] [place] [address] Phone #: ext- [phone] 08/27/2020 22:53 Patient: [...] left urgent care andunable to pass gas.).Treatment CHIEF SAFETY OFFICER:(Motrin last 1600, naproxen). --23:04 08/27/20 Sarah Wei [...] Wei R.N.History 2 Clinical Report - Nurses [facility] Emergency Department [address] [place] [address] Phone #: ext- [phone] 08/27/2020 22:53 Patient: [...] given. Two 3 Clinical Report - Nurses [facility] Emergency Department [address] [place] [address] Phone #: ext- [phone] 08/27/2020 22:53 Patient: [...] understanding. --23:31 08/27/20 Sarah Wei R.N.23:31 08/27/2020 [facility] * Drip IV 1000 --23:31 08/27/20 Sarah Wei R.N.The patient is calm and resting quietly. --00:18 08/28/20 Sarah Wei R.N.00:17 08/28/20. BP: 130/70. MAP: 90. HR: 88. RR: 17. O2 saturation: 100% on room air. --00: Sarah Wei R.N.23:47 08/27/2020 [facility] Drip IV Discontinued: completed. Total amount infused: [...] Wei R.N. 4 Clinical Report - Nurses [facility] Emergency Department [address] [place] [address] Phone #: ext- [phone] 08/27/2020 22:53 Patient: [...] Patient verbalized understanding. Written instructions provided in Tuvaluan. No medication instructions or treatment instructions. The [...] rce(s) Supporting Document(s) ID Date Data Source [id number] 08/27/2020 10:54:00 PM EDT [facility] 1 Clinical Report - Physicians/Mid Levels [facility] Emergency Department [address] [place] [address] Phone #: ext- [phone] 08/27/2020 22:53 Patient: [...] here on 08-14-20 for same after visiting [facility] ER on 08-11, workup and CTAP were nml, referred to [facility], seen once there, and was told that [...] Allergies: 2 Clinical Report - Physicians/Mid Levels [facility] Emergency Department [address] [place] [address] Phone #: ext- [phone] 08/27/2020 22:53 Patient: [...] ABD //T// PELVIS W/ IV ONLY INSTITUTION: [facility] ORDERING PHYSICIAN: Tj Turner PATIENT HISTORY: Abdominal pain, LUQ, RLQ, Diarrhea. Accumulated DLP-675.9 mGy*cm, Estimated DLP-665.6 mGy*cm. Neg BEta. [id number], 75mL, [id number], 09/30. Labs verified and scanned. Time Out performed. Correct patient with 2 identifiers, type and amount of contrast used, correct body part and side all verified prior to examination. Images sent [facility] for review. - RLB (Hx) / CORONAL (DICOM Hx) 3 Clinical Report - Physicians/Mid Levels [facility] Emergency De partment [address] [place] [address] Phone #: ext- [phone] 08/27/2020 22:53 Patient: ZARIA CAR Sex: F : 1995 Age: 25yEXAM: CT Abdomen and Pelvis with IV contrastCLINICAL HISTORY: Abdominal pain, LUQ, RLQ, Diarrhea. Accumulated DLP-675.9 mGy*cm, EstimatedDLP-665.6 mGy*cm. Neg BEta. [id number], 75mL, [id number], 09/30. Labs verified and scanned. Time Outperformed. Correct patient with 2 identifiers, type and amount of contrast used, correct body part and sideall verified prior to examination. Images sent [facility] for review. - RLBTECHNIQUE: Axial computed tomography images of the abdomen and pelvis with intravenous contrast. /All CT scans at this facility use dose modulation, iterative reconstruction, and/or weight-based dosing whenappropriate to reduce radiation dose to as low as reasonably achievable.CONTRAST: with intravenous contrast. With; TMT286, 75MlCOMPARISON: None provided.FINDINGS:LUNG BASES: The lung bases [...] aneurysm. 4 Clinical Report - Physicians/Mid Levels [facility] Emergency Department [address] [place] [address] Phone #: clq- [phone] 08/27/2020 22:53 [id number] Sex: F : 1995 Age: 25yBONES: No aggressive appearing osseous lesion. No acute osseous pathology evident.IMPRESSION:1. Appendix is normal.2. The patient is status post cholecystectomy.Electronically signed on Aug 28, 2020 2:04:10 AM EDT by:Wei Waddell MD, Ph.D.Diplomate, [place] [employer]. Study type: abdomen and [...] (mU/mL) Weeks post LMP 5.4-708 mU/mL 3-4 Przbv735-25571 mU/mL 5-6 Weeks 4059-283434 mU/mL 7-8 Sqivz19110-740377 mU/mL 9-10 Weeks 02988-03382 mU/mL 12-14 Auajz96041-71242 mU/mL 15-16 Weeks 8240-68505 mU/mL 17-18 WeeksCBC w Diff: (ABILIO: 08/27/2020 [...] 0.00) 5 Clinical Report - Physicians/Mid Levels [facility] Emergency Department [address] [place] [address] Phone #: ext- [phone] 08/27/2020 22:53 Patient: [...] Male GFR Interprentation 20-49 yrs >60 mL/min Eendua68-40 yrs >56 mL/min Normal 60-69 yrs >49 mL/min Normal 70-79yrs>42 mL/min Normal 80 and above >35 mL/min Normal Female GFRInterpretation 20-39 yrs >60 mL/min Normal 40-49 yrs >58 mL/minNormal 50-59 yrs >51 mL/min Normal 60-69 yrs >45 mL/min Goqhkz59-14 yrs >39 mL/min Normal 80 and above [...] Negat 6 Clinical Report - Physicians/Mid Levels [facility] Emergency Department [address] [place] [address] Phone #: ext- [phone] 08/27/2020 22:53 Patient: [...] Beta-HCG, Qual Serum: (ABILIO: 08/27/2020 23:18) ( [facility] 08/27/[place] 23:22) Canceled Lactic Acid: (ABILIO: 08/27/2020 [...] [facility] Emergency Department [address] [place] [address] Phone #: ext- [phone] 08/27/2020 22:53 Patient: [...] Interpretation Code Description Data [facility] rce(s) Supporting Document(s) ID Date Data Source [id number] 08/27/2020 11:59:00 PM EDT [facility] Name Value Range Interpretation Code Description Data [facility] rce(s) Supporting Document(s) COMPREHENSIVE METABOLIC PANEL [facility] COMPREHENSIVE METABOLIC PANEL Sodium [Moles/volume] in Serum or Plasma 135 mEq/L 134 - 153 [facility] Potassium [Moles/volume] in Serum or Plasma 3.4 mEq/L 3.6 - 5.0 L [facility] Chloride [Moles/volume] in Serum or Plasma 100 mEq/L 98 - 107 [facility] Carbon dioxide, total [Moles/volume] in Serum or Plasma 23 MEQ/L 22 - 30 [facility] Glucose [Mass/volume] in Serum or Plasma 132 MG/DL 70 - 99 H [facility] BUN 9 MG/DL 7 - 21 [facility] Creatinine [Mass/volume] in Serum or Plasma 0.5 MG/DL 0.7 - 1.5 L [facility] BUN/CREAT 18 8 - 27 [facility] Protein [Mass/volume] in Serum or Plasma 7.2 G/DL 6.3 - 8.2 [facility] Albumin [Mass/volume] in Serum or Plasma 4.5 G/DL 3.9 - 5.0 [facility] Globulin [Mass/volume] in Serum by calculation 2.7 GM/DL 2.4 - 3.2 [facility] A/G RATIO 1.7 0.8 - 2.0 [facility] Calcium [Mass/volume] in Serum or Plasma 9.5 MG/DL 8.4 - 10.2 [facility] Bilirubin.total [Mass/volume] in Serum or Plasma 0.7 MG/DL 0.2 - 1.3 [facility] Alkaline phosphatase [Enzymatic activity/volume] in Serum or Plasma 90 U/L 38 - 126 [facility] Aspartate aminotransferase [Enzymatic activity/volume] in Serum or Plasma 13 U/L 5 - 40 [facility] Alanine aminotransferase [Enzymatic activity/volume] in Seru m or Plasma 10 U/L 7 - 56 [facility] Anion gap 3 in Serum or Plasma 12.0 mmol/L 8.0 - 16.0 [facility] AGE 25 yrs [facility] Hospit al NON-AA GFR >60 mL/min [facility] ital AFR AMER GFR >60 mL/min [facility] Ho spital Male GFR In terprentation [...] >32 mL/min Normal ID Date Data Source [id number] 08/27/2020 11:55:00 PM EDT [facility] Name Value Range Interpretation Code Description Data Rachel rce(s) Supporting Document(s) Lipase [Enzymatic activity/volume] in Serum or Plasma 28 U/L 13 - 60 [facility] ID Date Data Source [id number] 08/27/2020 11:45:00 PM EDT [facility] Name Value Range Interpretation Code Description Data Rachel rce(s) Supporting Document(s) CBC W/AUTOMATED DIFF [facility] COMPLETE BLOOD COUNT Leukocytes [#/volume] in Blood by Automated count 11.8 10^3/uL 4.2 - 11.0 H [facility] Erythrocytes [#/volume] in Blood by Automated count 4.34 10^6/uL 4. 20 - 5.40 [facility] Hemoglobin [Mass/volume] in Blood 14.0 g/dL 12.0 - 16.0 [facility] Hematocrit [Volume Fraction] of Blood by Automated count 41.4 % 3 7.0 - 47.0 [facility] Erythrocyte mean corpuscular volume [Entitic volume] by Auto mated count 95.4 fL 81.0 - 101 [facility] Erythrocyte mean corpuscular hemoglobin [Entitic mass] by Automated count 32.3 pg 27.0 - 34.0 [facility] Erythrocyte mean corpuscular hemoglobin concentration [Mass/volume] by Automated count 33.8 g/dL 31.0 - 36.0 [facility] Erythrocyte distribution width [Ratio] by Automated count 12.5 % 11.5 - 14.5 [facility] Platelets [#/volume] in Blood by Automated count 224 10^3/uL 150 - 45 0 [facility] Platelet mean volume [Entitic volume] in Blood by Automated count 10.4 fL 7.4 - 10.4 [facility] Neutrophils/100 leukocytes in Blood by Automated count 76.5 % 37. 0 - 80.0 [facility] Lymphocytes/100 leukocytes in Blood by Manual count 17.2 % 25.0 - 40.0 L [facility] Monocytes/100 leukocytes in Blood by Automated count 5.4 % 3.0 - 8.0 [facility] Eosinophils/100 leukocytes in Blood by Automated count 0.4 % 0.0 - 7.0 [facility] Basophils/100 leukocytes in Blood by Automated count 0.3 % 0.0 - 2.5 [facility] %IG 0.2 % 0.0 - 0.[address] [facility] %NRBC 0.0 % 0.0 - 0.0 [facility] al Neutrophils [#/volume] in Blood by Automated count 9.02 10^3/uL 2.00 - 6.90 H [facility] Lymphocytes [#/volume] in Blood by Automated count 2.02 10^3/uL 0.60 - 3.40 [facility] Monocytes [#/volume] in Blood by Automated count 0.63 10^3/uL 0.00 - 0.90 [facility] Eosinophils [#/volume] in Blood by Automated count 0.05 10^3/uL 0.00 - 0.70 [facility] Basophils [#/volume] in Blood by Automated count 0.03 10^3/uL 0.00 - 0.20 [facility] #IG 0.02 10^3/uL 0.00 - 0.10 [facility]ital #NRBC 0.00 10^3/uL 0.00 - 0.00 [facility] MANUAL DIFF SEE BELOW [facility] ital Segmented neutrophils/100 leukocytes in Blood by Manual count 82 % 37 - 80 H [facility] %LYMPH 12 % 25 - [address] [facility] %MONO 5 % 3 - [facility] %EOS 1 % 0 - 7 [facility] RBC MORPH MORPH IS NORMAL [facility] ID Date Data Source [id number] 08/27/2020 11:44:00 PM EDT [facility] Name Value Range Interpretation Code Description Data Rachel rce(s) Supporting Document(s) Choriogonadotropin.intact [Units/volume] in Serum or Plasma <0.5 mIU/ mL [facility] Interpr etation: Less than 5 mU/mL: Negative 6-10 mU/mL: Borderline (suggest repeat in 48 hours) >10: Positive Approx HCG range (mU/mL) Weeks post LMP 5.4-708 mU/mL 3-4 Weeks 217-99063 mU/mL 5-6 Weeks 4059-820784 mU/mL 7-8 Weeks 01600-504986 mU/mL 9-10 Weeks 63668-79671 mU/mL 12-14 Weeks 22085-29733 mU/mL 15-16 Weeks 8240- 00803 mU/mL 17-18 Weeks ID Date Data Source [id number] 08/27/2020 11:42:00 PM EDT [facility] Name Value Range Interpretation Code Description Data Rachel rce(s) Supporting Document(s) URINALYSIS [facility] Hos[facility] tianna URINALYSIS SOURCE Clean Catch [facility] ital COLOR yellow NORMAL: Yellow [facility] CLARITY clear NORMAL: Clear [facility] Specific gravity of Urine by Test strip 1.010 1.001 - 1.030 [facility] pH 6.5 5 - 9 [facility] Glucose [Mass/volume] in Urine by Test strip NORM NORMAL: Negat [facility] Bilirubin.total [Presence] in Urine by Test strip NEG NORMAL: Negative [facility] Ketones [Presence] in Urine by Test strip 50 NORMAL: Negative A [facility] Protein [Mass/volume] in Urine by Test strip 30 NORMAL: Negat [facility] Nitrite [Presence] in Urine by Test strip NEG NORMAL: Negative [facility] BLOOD NEG NORMAL: Negative [facility] Leukocyte esterase [Presence] in Urine by Test strip 25 JENNY L: Negative [facility] Urobilinogen [Mass/volume] in Urine by Test strip 1 less nathalia n 1.0 mg/dL [facility] MICROSCOPIC See Below [facility] ital WBC 1 - [address]: [address] [facility] Erythrocytes [#/volume] in Urine by Test strip 0 - 1 NORMAL: NON E SEEN [facility] EPITHELIAL FEW NORMAL: NONE SEEN [facility] Bacteria [Presence] in Urine sediment by Light microscopy Tr rosy NORMAL: NONE SEEN [facility] Mucus [Presence] in Urine sediment by Light microscopy Trace NORMAL: NONE SEEN [facility] ID Date Data Source [id number] 08/27/2020 11:42:00 PM EDT [facility] Name Value Range Interpretation Code Description Data Rachel rce(s) Supporting Document(s) Lactate [Moles/volume] in Serum or Plasma 2.7 MMOL/L 0.2 - 2.2 H [facility] ID Date Data Source [id number] 08/27/2020 12:00:00 AM EDT [facility] Name Value Range Interpretation Code Description Data Rachel rce(s) Supporting Document(s) Carestart Rapid COVID Antigen Test Negative [facility] This lab was reported by Lakhwinder king. ID Date Data Source [id number] 08/15/2020 09:04:00 AM EDT [facility] [address] [place] [address] PHONE: [phone] FAX: [phone] Name .................. : JOCELINE Nguyễn Acct Number.................. : [id number] ROOM. ................. : TR-02 MR Number ................... : [id number] Stay type ............. : E/R Discharge Date......... ... : 08/14/20 Admit Date ......... : 08/14/20 Admit Phys .................... : COONEYNORM Date of ....... : 1995 Family Phys ................... : UNKNOWN Phone .................. : [phone] Age ................................ : 25 Film# .................. .:[id number] Sex ................................. : F Unsigned transcriptions are preliminary reports and do not represent a medical or legal document CT ABD & PELVIS W/ IV ONLY [id number] COMPLETE:08/14/20 19:22 ARLENE 8055 Reason(s): Abdominal Pain [...] 75 Isovue 370 Page 1 of 2 [facility] [address] [facility] [place] [id number] PHONE: [phone] FAX: [phone] Name .................. : JOCELINE GARCIA Chan Acct Number.................. : [id number] ROOM. ................. : TR-02 MR Number ................... : [id number] Stay type ............. : E/R Discharge Date......... ... : 08/14/20 Admit Date ......... : 08/14/20 Admit Phys .................... : COONEYNORM Date of ....... : 1995 Family Phys ................... : UNKNOWN Phone .................. : [phone] Age ................................ : 25 Film# .................. .:[id number] Sex ................................. 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, Deric ER(Oxygen?(No)) PA; Gladis Tech1(IV?(Yes)) NOTES: RLQ Pain Reason for Study: Abdominal PainMEDICATION/IV/DRIP/FLUID ORDERSOrder Description Priority Entered Acknowledged InitialedNS IV : Bolus 1000 18:47 08/14/2020 Ack'd: 18:47 19:25 Oscar,mL, then 150 mL/hr Bhavna Covarrubias R.N.; R.NAzul 2 OrderSheet [facility] Emergency Department [address] [place] [address] Phone #: ext- [phone] 08/14/2020 18:33 Patient: [...] rce(s) Supporting Document(s) ID Date Data Source [id number] 08/14/2020 06:54:00 PM EDT [facility] 1 Medication Reconciliation Report [facility] Emergency Department [address] [place] [address] Phone #: ext- [phone] 08/14/2020 18:33 Patient: [...] Dispense 20 tablet. Refills: 0.Substitution permitted.Pharmacy - [facility] [address] [facility] [employer] [facility] [address] [facility] ; [place] [address]. . -- CHRISTIN Gonzalez Name Value Range Interpretation Code Description Data Rachel rce(s) Supporting Document(s) ID Date Data Source [id number] 08/14/2020 06:54:00 PM EDT [facility] 1 Medication Administration Record [facility] Emergency Department [address] [place] [address] Phone #: ext- [phone] 08/14/2020 18:33 Patient: ZARIA CAR Sex: F : 1995 Age: 25yWeight: 71.2 kgHeight/Length: 67 inBMI: 24.6ALLERGIES: No Known Drug Allergy Date/Time Medication Administered Medication OrderedStart NS [IV] NS IV : Bolus 1000 mL, then 32500:20 08/14/2020 Dose: IV Fluids mL/hrBhavna Moore R.NAzul [...] rce(s) Supporting Document(s) ID Date Data Source [id number] 08/14/2020 06:54:00 PM EDT [facility] 1 General Instructions [facility] Emergency Department [address] [place] [address] Phone #: ext- [phone] 08/14/2020 18:33 Patient: [...] Dispense 20 tablet. Refills: 0.Substitution permitted.Pharmacy - [facility] [address] [facility] [id number] [place] [address] ; [place] [address]. .Follow-up:Follow up with a specialist OB. Reason for referral: Ovarian Cyst versus Adhesions?. Summary of careprovided to patient.Understanding of the discharge instructions verbalized by patient. ADDITIONAL INFORMATIONUnknown Causes of Abdominal Pain (Female) 2 General Instructions [facility] Emergency Department [address] [place] [address] Phone #: ext- [phone] 08/14/2020 18:33 Patient: [...] for taking these medicines. 3 General Instructions [facility] Emergency Department [address] [place] [address] Phone #: ext- [phone] 08/14/2020 18:33 Patient: [...] begin to improve in thenext 24 hours.Call [phone] if any of these occur: Trouble breathing Confusion Fainting or loss of consciousness Rapid heart rate 4 General Instructions [facility] Emergency Department [address] [place] [address] Phone #: ext- [phone] 08/14/2020 18:33 Patient: [...] or water and you are getting dehydrated [id number] [employer]. [address] [place] [address]. All rights reserved. This information is not intended as asubstitute for professional medical care. Always follow your healthcare professional's instructions. You have been given the following additional information: Abdominal Pain, Unknown Cause, (Female)(Electronically signed by CHRISTIN Gonzalez 08/14/2020 20:34) Name Value Range Interpretation Code Description Data Rachel rce(s) Supporting Document(s) ID Date Data Source [id number] 08/14/2020 06:54:00 PM EDT [facility] 1 Clinical Report - Nurses [facility] Emergency Department [address] [place] [address] Phone #: ext- [phone] 08/14/2020 18:33 Patient: ZARIA CAR Sex: F [...] very painful to palpation. Pt went to [facility] on Thursday morning who did lab work butultimately discharged without answer. Pt states since then has gotten worse still and does not have anappetite. Pt denies n/v/d.). She has had abdominal pain. The pain is described as located in the RLQ.No nausea, vomiting, diarrhea or constipation. 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 [...] within normallimits. 3 Clinical Report - Nurses [facility] Emergency Department [address] [place] [address] Phone #: ext- [phone] 08/14/2020 18:33 Patient: ZARIA CAR Sex: F [...] CT by wheelchair with IV, mask and bioinformatics research technician. --19:19 08/14/20 Bhavna Moore R.N. late entry - 19:12 08/14/20. Patient transported to CT by wheelchair with IV, mask and bioinformatics research technician. --19:20 08/14/20 Bhavna Moore R.N. 19:20 [...] Moore R.N. 4 Clinical Report - Nurses [facility] Emergency Department [address] [place] [address] Phone #: ext- [phone] 08/14/2020 18:33 Patient: [...] Patient verbalized understanding. Written instructions provided in Tuvaluan. The patient was discharged by the physician dietitian assistant. She was discharged home and accompanied [...] rce(s) Supporting Document(s) ID Date Data Source [id number] 08/14/2020 06:54:00 PM EDT [facility] 1 Clinical Report - Physicians/Mid Levels [facility] Emergency Department [address] [place] [address] Phone #: ext- [phone] 08/14/2020 18:33 Patient: ZARIA CAR Sex: F : 1995 Age: 25y Time Seen: 18:34 08/14/2020. Arrived- By private vehicle. Historian- patient.HISTORY OF PRESENT ILLNESS Chief Complaint: ABDOMINAL PAIN and NAUSEA. This started 4 days ago; Pt states she has had RLQ abd pain since Thursday and this has progressively gotten worse. Pt states very painful to palpation. Pt went to [facility] on Thursday morning who did [...] Allergy. 2 Clinical Report - Physicians/Mid Levels [facility] Emergency Department [address] [place] [address] Phone #: ext- [phone] 08/14/2020 18:33 Patient: [...] 0.70) 3 Clinical Report - Physicians/Mid Levels [facility] Emergency Department [address] [place] [address] Phone #: ext- [phone] 08/14/2020 18:33 Patient: [...] Pain. 4 Clinical Report - Physicians/Mid Levels [facility] Emergency Department [address] [place] [address] Phone #: ext- [phone] 08/14/2020 18:33 Patient: ZARIA CAR Sex: F : 1995 Age: 25yPROGRESS AND PROCEDURESCourse of Care: 19:55 Aug 14 2020. Evaluation after observation. (Discussed CT A/P and possiblyOvarian cyst versus adhesions, pt has f/u with OB. Pt had negative HCG at [facility] on Thursday.). Patient counseled in [...] tablet. Refills: 0. Substitution permitted. Pharmacy - [facility] [id number] [place] [facility] [id number] [place] [address] ; [place] [address]. . Follow-up: Follow up with a specialist OB. Reason for referral: Ovarian Cyst versus Adhesions?. Summary of care provided to patient. Understanding of the discharge instructions verbalized by patient.(Electronically signed by CHRISTIN Gonzalez 08/14/2020 20:34) 5Clinical Report - Physicians/Mid Levels [facility] Emergency Department [address] [place] [address] Phone #: ext- [phone] 08/14/2020 18:33 Patient: ZARIA CAR Sex: F : 1995 Age: 25y Name Value Range Interpretation Code Description Data Rachel rce(s) Supporting Document(s) ID Date Data Source [id number] 08/14/2020 07:46:00 PM EDT [facility] Name Value Range Interpretation Code Description Data Rachel rce(s) Supporting Document(s) Lipase [Enzymatic activity/volume] in Serum or Plasma 31 U/L 13 - 60 [facility] ID Date Data Source [id number] 08/14/2020 07:46:00 PM EDT [facility] Name Value Range Interpretation Code Description Data Rachel rce(s) Supporting Document(s) COMPREHENSIVE METABOLIC PANEL [facility] COMPREHENSIVE METABOLIC PANEL Sodium [Moles/volume] in Serum or Plasma 136 mEq/L 134 - 153 [facility] Potassium [Moles/volume] in Serum or Plasma 4.2 mEq/L 3.6 - 5.0 [facility] Chloride [Moles/volume] in Serum or Plasma 100 mEq/L 98 - 107 [facility] Carbon dioxide, total [Moles/volume] in Serum or Plasma 29 MEQ/L 22 - 30 [facility] Glucose [Mass/volume] in Serum or Plasma 86 MG/DL 70 - 99 [facility] BUN 8 MG/DL 7 - 21 [facility] Creatinine [Mass/volume] in Serum or Plasma 0.5 MG/DL 0.7 - 1.5 L [facility] BUN/CREAT 16 8 - 27 [facility] Protein [Mass/volume] in Serum or Plasma 6.6 G/DL 6.3 - 8.2 [facility] Albumin [Mass/volume] in Serum or Plasma 4.3 G/DL 3.9 - 5.0 [facility] Globulin [Mass/volume] in Serum by calculation 2.3 GM/DL 2.4 - 3.2 L [facility] A/G RATIO 1.9 0.8 - 2.0 [facility] Calcium [Mass/volume] in Serum or Plasma 9.8 MG/DL 8.4 - 10.2 [facility] Bilirubin.total [Mass/volume] in Serum or Plasma <0.7 MG/DL 0.2 - 1.3 [facility] Alkaline phosphatase [Enzymatic activity/volume] in Serum or Plasma 69 U/L 38 - 126 [facility] Aspartate aminotransferase [Enzymatic activity/volume] in Serum or Plasma 12 U/L 5 - 40 [facility] Alanine aminotransferase [Enzymatic activity/volume] in Seru m or Plasma 6 U/L 7 - 56 L [facility] Anion gap 3 in Serum or Plasma 7.0 mmol/L 8.0 - 16.0 L [facility] AGE 25 yrs [facility] Hospit al NON-AA GFR >60 mL/min [facility] Hosp ital AFR AMER GFR >60 mL/min [facility] Ho spital Male GFR In terprentation [...] >32 mL/min Normal ID Date Data Source [id number] 08/14/2020 07:33:00 PM EDT [facility] Name Value Range Interpretation Code Description Data Rachel rce(s) Supporting Document(s) Lactate [Moles/volume] in Serum or Plasma 1.4 MMOL/L 0.2 - 2.2 [facility] ID Date Data Source [id number] 08/14/2020 07:25:00 PM EDT [facility] Name Value Range Interpretation Code Description Data Rachel rce(s) Supporting Document(s) CBC W/AUTOMATED DIFF [facility] COMPLETE BLOOD COUNT Leukocytes [#/volume] in Blood by Automated count 6.7 10^3/uL 4.2 - 1 1.0 [facility] Erythrocytes [#/volume] in Blood by Automated count 4.16 10^6/uL 4. 20 - 5.40 L [facility] Hemoglobin [Mass/volume] in Blood 13.4 g/dL 12.0 - 16.0 [facility] Hematocrit [Volume Fraction] of Blood by Automated count 40.4 % 3 7.0 - 47.0 [facility] Erythrocyte mean corpuscular volume [Entitic volume] by Auto mated count 97.1 fL 81.0 - 101 [facility] Erythrocyte mean corpuscular hemoglobin [Entitic mass] by Automated count 32.2 pg 27.0 - 34.0 [facility] Erythrocyte mean corpuscular hemoglobin concentration [Mass/volume] by Automated count 33.2 g/dL 31.0 - 36.0 [facility] Erythrocyte distribution width [Ratio] by Automated count 12.5 % 11.5 - 14.5 [facility] Platelets [#/volume] in Blood by Automated count 231 10^3/uL 150 - 45 0 [facility] Platelet mean volume [Entitic volume] in Blood by Automated count 10.6 fL 7.4 - 10.4 H [facility] Neutrophils/100 leukocytes in Blood by Automated count 52.7 % 37. 0 - 80.0 [facility] Lymphocytes/100 leukocytes in Blood by Manual count 36.0 % 25.0 - 40.0 [facility] Monocytes/100 leukocytes in Blood by Automated count 8.8 % 3.0 - 8.0 H [facility] Eosinophils/100 leukocytes in Blood by Automated count 1.6 % 0.0 - 7.0 [facility] Basophils/100 leukocytes in Blood by Automated count 0.6 % 0.0 - 2.5 [facility] %IG 0.3 % 0.0 - 0.[address] [facility] %[facility]BC 0.0 % 0.0 - 0.0 [facility] al Neutrophils [#/volume] in Blood by Automated count 3.51 10^3/uL 2.00 - 6.90 [facility] Lymphocytes [#/volume] in Blood by Automated count 2.40 10^3/uL 0.60 - 3.40 [facility] Monocytes [#/volume] in Blood by Automated count 0.59 10^3/uL 0.00 - 0.90 [facility] Eosinophils [#/volume] in Blood by Automated count 0.11 10^3/uL 0.00 - 0.70 [facility] Basophils [#/volume] in Blood by Automated count 0.04 10^3/uL 0.00 - 0.20 [facility] #IG 0.02 10^3/uL 0.00 - 0.10 [facility] H ospital #NRBC 0.00 10^3/uL 0.00 - 0.00 [facility] ospital MANUAL DIFF NOT INDICATED [facility] RBC MORPH NOT INDICATED [facility] spital ID Date Data Source [id number] 07/10/2020 02:44:00 PM EST [facility] ([facility]) Name Value Range Interpretation Code Description Data Rachel rce(s) Supporting Document(s) Glucose, Fasting 94 mg/dL 70-100 [facility] ([facility]) Blood Urea Nitrogen 10 mg/dL 7-18 [facility] ([facility]) Creatinine For GFR 0.60 mg/dL 0.55-1.30 [facility] ([facility]) Glomerular Filtration Rate Laboratory test result [facility] ([facility]) <content>Units are mL/min/1.73 m2</content>
<content></content>
<content>Chronic Kidney Disease Staging per NKF:</content>
<content></content>
<content>Stage I & II GFR >=60 Normal to Mildly Decreased</content>
<content>Stage III GFR 30- 59 Moderately Decreased</content>
<content>Stage IV GFR 15-29 Severely Decreased</content>
<content>Stage V GFR <15 Very Little GFR Left</content>
<content>ESRD GFR <15 on MANAGER CHEMISTRY</content>
<content></content> Sodium Level 139 meq/L 136-145 [facility] ([facility]) Potassium Serum 4.3 meq/L 3.5-5.1 [facility] ([facility]) Chloride Level 105 meq/L 98-107 [facility] ([facility]) Carbon Dioxide Level 30 meq/L 21-32 [facility] ([facility]) Anion Gap 4 meq/L 8-16 [facility] ([facility]) Ast/Sgot 7 U/L 7-37 [facility] ([facility], [facility]) Calcium Level 9.5 mg/dL 8.5-10.1 [facility] ([facility] Alt/SGPT 17 U/L 12-78 [facility] ([facility], [facility]) Bilirubin,Total 0.3 mg/dL 0.2-1.0 [facility] ([facility]) Alkaline Phosphatase 85 U/L 45-117 [facility] ( [facility], [facility]) Albumin 4.1 GM/DL 3.2-5.2 [facility] ([facility], [facility]) Total Protein 7.6 GM/DL 6.4-8.2 [facility] ([facility], [facility]) Albumin/Globulin Ratio 1.2 1.2-2.2 [facility] ([facility], [facility]) ID Date Data Source [id number] 07/10/2020 02:44:00 PM EST [facility] ([facility], [facility]) Name Value Range Interpretation Code Description Data Rachel rce(s) Supporting Document(s) White Blood Count 6.7 10 4.0-10.0 [facility] ([facility], [facility]) Red Blood Count 4.57 10 4.00-5.40 [facility] ([facility], [facility]) Hemoglobin 14.1 g/dL 12.0-15.5 [facility] ([facility] Hematocrit 45.2 % 36.0-47.0 [facility] ([facility]) Mean Corpuscular Volume 98.9 fl 80.0-96.0 M [facility] ([facility], [facility]) Mean Corpuscular HGB Conc 31.2 g/dL 32.0-36.5 [facility] ([facility], [facility]) Mean Corpuscular Hemoglobin 30.9 pg 27.0-33.0 [facility] ([facility], [facility]) Red Cell Distribution Width 12.5 % 11.5-14.5 [facility] ([facility], [facility]) Platelet Count, Automated 247 10 150-450 [facility] ([facility], [facility]) Neutrophils % 65.4 % 36.0-66.0 [facility] ([facility], [facility]) Lymph % 26.9 % 24.0-44.0 [facility] ([facility], [facility]) [place] % 6.6 % 2.0-8.0 [facility] ([facility], [facility]) Eos % 0.6 % 0.0-3.0 [facility] ([facility], [facility]) Baso % 0.4 % 0.0-1.0 [facility] ([facility], [facility]) Immature Granulocyte % 0.1 % 0-3.0 [facility] ([facility], [facility]) Neutrophils # 4.4 10 1.5-8.5 [facility] ([facility], [facility]) Nucleated Red Blood Cell % 0.0 % 0-0 [facility] ([facility] [place] [facility], [facility]) Lymph # 1.8 10 1.5-5.0 [facility] ([facility], [facility]) [place] # 0.4 10 0.0-0.8 [facility] ([facility], [facility]) Baso # 0.0 10 0.0-0.2 [facility] ([facility], [facility]) Eos # 0.0 10 0.0-0.5 [facility] ([facility], [facility]) ID Date Data Source [id number] 07/04/2020 01:30:00 PM EST [facility] ([facility]) Name Value Range Interpretation Code Description Data Rachel rce(s) Supporting Document(s) Influenza virus A RNA [Presence] in Unsp ecified specimen by Probe and target amplification method Laboratory test result [facility] ([facility]) Influenza virus B RNA [Presence] in Unsp ecified specimen by Probe and target amplification method Laboratory test result [facility] ([facility]) ID Date Data Source [id number] 07/04/2020 01:29:00 PM EST [facility] Name Value Range Interpretation Code Description Data Rachel rce(s) Supporting Document(s) SARS coronavirus 2 RNA Not Detected [facility] [place] This lab was ordered by [facility] Gonzalez rodriguez and reported by [facility]. ID Date Data Source [id number] 07/07/2020 04:20:00 PM EST [facility] Name Value Range Interpretation Code Description Data Rachel rce(s) Supporting Document(s) SARS-CoV-2, JUAN Not Detected Not Detected [facility] This nucleic acid amplification test was developed and its performancecharacteristics determined by [employer]. Nucleic acidamplification tests include RT-PCR and TMA. [...] Smoker completed Curre nt Smoker eCW1 ([facility]) Smoking 11/01/2020 12:00:00 AM EDT Current Smoker completed Curre nt Smoker eCW1 ([facility]) Vital Signs ID Date Data Source UNK Name Value Range Interpretation Code Description Data Source(s) Systolic blood pressure 116 mm[Hg] 116 mm[Hg] M [facility] ([facility]) Diastolic blood pressure 76 mm[Hg] 76 mm[Hg] [facility] ([facility]) Respiratory rate 18 /min 18 /min [facility] ( [facility]) Oxygen saturation in Arterial blood by Pulse oximetry 97 % 97 % [facility] ([facility]) Body weight 170.38 [lb_av] 170.38 [lb_av] MED[facility] T ([facility]) Body weight 77.282 kg 77.282 kg [facility] ([facility]) Body height 68 [in_i] 68 [in_i] [facility] ([facility]) 5'8" Body mass index (BMI) [Ratio] 25.9 kg/m2 25.9 k g/m2 [facility] ([facility]) Body surface area Derived from formula 1.91 m2 1.91 m2 [facility] ([facility]) Body weight 164.2 [lb_av] 164.2 [lb_av] W1 ([facility]) Body height 68 [in_i] 68 [in_i] W1 ([facility]) Body mass index (BMI) [Ratio] 24.96 kg/m2 24.96 kg/m2 W1 ([facility]) Heart rate 87 /min 87 /min W1 ([facility]) Respiratory rate 16 /min 16 /min W1 ([facility]) Body temperature 97.6 [degF] 97.6 [degF] W1 ( [facility]) Systolic blood pressure 111 mm[Hg] 111 mm[Hg] e CW1 ([facility]) Diastolic blood pressure 75 mm[Hg] 75 mm[Hg] eCW1 ([facility]) Body height 67 [in_i] 67 [in_i] [facility] ([facility], [facility]) 5'7" Body temperature 97.0 [degF] 97.0 [degF] [facility] ([place] [facility], [facility]) Respiratory rate 16 /min 16 /min [facility] ( [facility], [facility]) Oxygen saturation in Arterial blood by Pulse oximetry 97 % 97 % [facility] ([facility], [facility]) Body weight 155.00 [lb_av] 155.00 [lb_av] [facility] T ([facility], [facility]) Body mass index (BMI) [Ratio] 24.3 kg/m2 24.3 k g/m2 [facility] ([facility]) Systolic blood pressure 115 mm[Hg] 115 mm[Hg] M [facility]ENT ([facility]) Diastolic blood pressure 80 mm[Hg] 80 mm[Hg] [facility] ([facility]) Heart rate 95 /min 95 /min [facility] ([facility]) Body temperature 98.1 [degF] 98.1 [degF] [facility] ([facility]) Respiratory rate 16 /min 16 /min [facility] ( [facility]) Oxygen saturation in Arterial blood by Pulse oximetry 98 % 98 % [facility] ([facility]) Heart rate 87 /min 87 /min [facility] ([facility]) ID Date Data Source [id number] 01/03/2021 02:45:29 PM EDT [facility] Name Value Range Interpretation Code Description Data Source(s) WEIGHT RECORDED 160.00 pounds 160.00 pounds [facility] Height 67 Inches 067 Inches [facility]
[2021-04-15 13:44] LABS: BASO % 0.4 % (0.0-1.0); EOS % 0.6 % (0.0-3.0); HEMATOCRIT 38.1 % (36.0-47.0); HEMOGLOBIN 12.5 g/dl (12.0-15.5); LYMPH # 1.3 10^3/uL (1.5-5.0); LYMPH % 24.6 % (24.0-44.0); MEAN CORPUSCULAR HGB CONC 32.8 g/dl (32.0-36.5); MEAN CORPUSCULAR VOLUME 97.4 fl (80.0-96.0); MONO # 0.4 10^3/uL (0.0-0.8); MONO % 7.3 % (2.0-8.0); NEUTROPHILS # 3.6 10^3/uL (1.5-8.5); NEUTROPHILS % 66.9 % (36.0-66.0); PLATELET COUNT, AUTOMATED 228 10^3/uL (150-450); RED BLOOD COUNT 3.91 10^6/uL (4.00-5.40); WHITE BLOOD COUNT 5.3 10^3/uL (4.0-10.0)
[2021-04-15] MEDS ORDERED: HYDROMORPHONE HCL 0.5 MG/ 0.5 ML SYRINGE (J1170 PER 1) IV ONE (14:00)
--- NOTE | 2021-04-15 14:04 | REP ---
INDICATION: right pelvic pain. COMPARISON: 04/13/2021. TECHNIQUE: Transabdominal and transvaginal scanning performed. FINDINGS: Uterine dimensions are 8.3 x 3.7 x 4.2 cm. Endometrial echo is 6 mm in AP dimension and centrally placed. The bladder measures 6.5 x 8.1 x 5.5cm. The right ovary has dimensions of 2.4 x 1.8 x 2.8 cm. It's Doppler flow is normal with a resistive index of 0.50. The left ovary dimensions are 2.9 x 2.0 x 2.8 cm. It's Doppler flow was normal with resistive index of 0.47. There is no adnexal mass identified. There is mild free fluid in the cul-de-sac. IMPRESSION: Mild free fluid in the cul-de-sac. No adnexal mass or torsion. <Electronically signed by Jose Sawyer > 04/15/21 1400
[2021-04-15 14:11] LABS: ALBUMIN 3.6 GM/DL (3.2-5.2); ALT/SGPT 14 U/L (12-78); BILIRUBIN,TOTAL 0.2 MG/DL (0.2-1.0); BLOOD UREA NITROGEN 8 MG/DL (7-18); CALCIUM LEVEL 9.5 MG/DL (8.5-10.1); CARBON DIOXIDE LEVEL 26 MEQ/L (21-32); CHLORIDE LEVEL 109 MEQ/L (98-107); CREATININE FOR GFR 0.52 MG/DL (0.55-1.30); GLOMERULAR FILTRATION RATE > 60.0 (>60); GLUCOSE, FASTING 97 MG/DL (70-100); POTASSIUM SERUM 4.2 MEQ/L (3.5-5.1); SODIUM LEVEL 141 MEQ/L (136-145); TOTAL PROTEIN 6.6 GM/DL (6.4-8.2)
[2021-04-15] MEDS ORDERED: ISOVUE-370 76% 100ML VIAL As Ordered ONE (14:57)
--- NOTE | 2021-04-15 15:23 | REP ---
INDICATION: right sided pelvic pain COMPARISON: 04/13/2021. TECHNIQUE: CT Scan of the abdomen and pelvis was performed with intravenous administration of 100 cc of Isovue 370, without oral contrast. Sagittal and coronal reconstruction images are performed. FINDINGS: Lung bases: Unremarkable. Liver: Stable enhancing nodules are present likely hemangiomas. Gallbladder: Cholecystectomy. Spleen: Normal. Adrenals: Normal. Pancreas: Normal. Kidneys: Normal. Small and large bowel: Unremarkable. Free fluid: None. Abdominal aorta: No aneurysm or dissection. Adenopathy: None. Appendix: Not inflamed. Osseous structures: Unremarkable. Pelvis: No mass. IMPRESSION: No acute abnormalities. <Electronically signed by Jose Sawyer > 04/15/21 [id number]
[2021-04-15 15:56] VITALS: BP 133/72
[2021-04-15 16:46] LABS: GC DNA AMPLIFICATION NEGATIVE (NEGATIVE)
== END 2021-04-15 15:58 | disposition home or self-care (01) ==
LOC: M ED 11:58
DX: N94.4 Primary dysmenorrhea (principal)
CPT/HCPCS: 74177; 76830; 76856; 80053; 81001; 83605; 85025; 87210; 87491; 87591; 93976; 96374; 96375; 99284; J1170; J1885; J2405; Q9967

== ENCOUNTER 2021-05-07 11:31 | Emergency (ER) | payer OTHER ==
[~2021-05-07] VITALS: Ht 172.7 cm; Wt 77.3 kg
[2021-05-07] MEDS ORDERED: MELO7.5T35 (11:54)
[2021-05-07] MEDS ORDERED: TIZA10TA (11:54)
[2021-05-07 12:55] VITALS: BP 120/73
== END 2021-05-07 13:15 | disposition home or self-care (01) ==
LOC: M ED 11:31
DX: M25.511 Pain in right shoulder (principal); W00.0XXA Fall on same level due to ice and snow, initial encounter; Y92.9 Unspecified place or not applicable; Y93.9 Activity, unspecified; Y99.9 Unspecified external cause status

== ENCOUNTER 2021-07-21 07:30 | Emergency (ER) | payer OTHER ==
[~2021-07-21] VITALS: Ht 177.8 cm; Wt 75.8 kg
[~2021-07-21 07:30] MED LIST changes: +MELO7.5T35; +TIZA10TA
[2021-07-21] MEDS ORDERED: ONDANSETRON 4MG/2ML VIAL IV ONE (07:55)
[2021-07-21] MEDS ORDERED: MORPHINE 4 MG/ML 1ML VIAL/SYRINGE (J2270) IV ONE (07:55)
[2021-07-21] MEDS ORDERED: NS 1,000 ML IV ONE (07:55)
[2021-07-21 08:18] LABS: BASO % 0.5 % (0.0-1.0); EOS # 0.1 10^3/uL (0.0-0.5); EOS % 1.1 % (0.0-3.0); HEMATOCRIT 38.4 % (36.0-47.0); HEMOGLOBIN 12.7 g/dl (12.0-15.5); LYMPH # 2.5 10^3/uL (1.5-5.0); LYMPH % 33.9 % (24.0-44.0); MEAN CORPUSCULAR HEMOGLOBIN 32.2 pg (27.0-33.0); MEAN CORPUSCULAR HGB CONC 33.1 g/dl (32.0-36.5); MEAN CORPUSCULAR VOLUME 97.2 fl (80.0-96.0); MONO # 0.6 10^3/uL (0.0-0.8); MONO % 7.9 % (2.0-8.0); NEUTROPHILS # 4.2 10^3/uL (1.5-8.5); NEUTROPHILS % 56.3 % (36.0-66.0); PLATELET COUNT, AUTOMATED 251 10^3/uL (150-450); RED BLOOD COUNT 3.95 10^6/uL (4.00-5.40); WHITE BLOOD COUNT 7.5 10^3/uL (4.0-10.0)
[2021-07-21 09:12] LABS: ALT/SGPT 21 U/L (12-78); BILIRUBIN,DIRECT < 0.1 MG/DL (0.0-0.2); BILIRUBIN,TOTAL 0.2 MG/DL (0.2-1.0); LIPASE 124 U/L (73-393); TOTAL PROTEIN 7.5 GM/DL (6.4-8.2)
[2021-07-21] MEDS ORDERED: KETOROLAC 30 MG/ML 1ML VIAL IV ONE (09:50)
[2021-07-21] MEDS ORDERED: ISOVUE-370 76% 100ML VIAL As Ordered ONE (10:08)
[2021-07-21 11:41] VITALS: BP 126/80
== END 2021-07-21 11:43 | disposition home or self-care (01) ==
LOC: M ED 07:30
DX: R10.9 Unspecified abdominal pain (principal)
CPT/HCPCS: 74177; 76856; 80047; 80076; 83690; 84702; 85025; 96361; 96374; 96375; 99284; J1885; J2270; J2405; Q9967

== ENCOUNTER → 2021-07-29 | Outpatient (REF) | payer OTHER ==
[2021-07-29 21:45] LABS: GC DNA AMPLIFICATION NEGATIVE (NEGATIVE)
== END ==
LOC: M SFHCWAGY 17:43
PROVIDERS: ATTEND Obstetrics & Gynecology
DX: R10.2 Pelvic and perineal pain (principal)

== ENCOUNTER 2021-08-13 03:43 | Emergency (ER) | payer OTHER ==
[~2021-08-13] VITALS: Ht 175.3 cm; Wt 72.7 kg
[2021-08-13] MEDS ORDERED: predniSONE 20 MG TAB PO ONE (04:05)
[2021-08-13] MEDS ORDERED: diphenhydrAMINE 50MG CAP PO ONE (04:05)
[2021-08-13] MEDS ORDERED: PRED20TA PO (05:34)
[2021-08-13 07:00] VITALS: BP 107/55
== END 2021-08-13 07:15 | disposition home or self-care (01) ==
LOC: M ED 03:43
DX: T78.40XA Allergy, unspecified, initial encounter (principal); Z87.42 Personal history of other diseases of the female genital tract; Z91.030 Bee allergy status; Z91.018 Allergy to other foods
CPT/HCPCS: 93041; 94760; 99284; J7512

== ENCOUNTER 2021-09-11 13:57 | Emergency (ER) | payer OTHER ==
[~2021-09-11] VITALS: Ht 172.7 cm; Wt 79.5 kg
[~2021-09-11 13:57] MED LIST changes: +PRED20TA PO
[2021-09-11] MEDS ORDERED: ONDANSETRON 4MG/2ML VIAL IV ONE (14:30)
[2021-09-11] MEDS ORDERED: MORPHINE 4 MG/ML 1ML VIAL/SYRINGE IV ONE ×2 (14:30→18:25)
[2021-09-11] MEDS ORDERED: NS 1,000 ML IV SCH (14:30)
[2021-09-11 15:22] LABS: BASO % 0.4 % (0.0-1.0); EOS # 0.1 10^3/uL (0.0-0.5); EOS % 1.3 % (0.0-3.0); HEMATOCRIT 39.9 % (36.0-47.0); HEMOGLOBIN 13.2 g/dl (12.0-15.5); LYMPH # 1.9 10^3/uL (1.5-5.0); LYMPH % 27.5 % (24.0-44.0); MEAN CORPUSCULAR HEMOGLOBIN 32.2 pg (27.0-33.0); MEAN CORPUSCULAR HGB CONC 33.1 g/dl (32.0-36.5); MEAN CORPUSCULAR VOLUME 97.3 fl (80.0-96.0); MONO # 0.5 10^3/uL (0.0-0.8); MONO % 7.1 % (2.0-8.0); NEUTROPHILS # 4.4 10^3/uL (1.5-8.5); NEUTROPHILS % 63.3 % (36.0-66.0); PLATELET COUNT, AUTOMATED 265 10^3/uL (150-450); WHITE BLOOD COUNT 6.9 10^3/uL (4.0-10.0)
[2021-09-11 15:56] LABS: HCG, SERUM QUALITATIVE NEGATIVE (NEGATIVE)
[2021-09-11 16:00] LABS: ALT/SGPT 16 U/L (12-78); BILIRUBIN,DIRECT < 0.1 MG/DL (0.0-0.2); BILIRUBIN,TOTAL 0.2 MG/DL (0.2-1.0); BLOOD UREA NITROGEN 7 MG/DL (7-18); CALCIUM LEVEL 9.7 MG/DL (8.5-10.1); CARBON DIOXIDE LEVEL 26 MEQ/L (21-32); CHLORIDE LEVEL 111 MEQ/L (98-107); CREATININE FOR GFR 0.62 MG/DL (0.55-1.30); GLOMERULAR FILTRATION RATE > 60.0 (>60); GLUCOSE, FASTING 84 MG/DL (70-100); LIPASE 150 U/L (73-393); POTASSIUM SERUM 3.8 MEQ/L (3.5-5.1); SODIUM LEVEL 142 MEQ/L (136-145); TOTAL PROTEIN 7.4 GM/DL (6.4-8.2)
[2021-09-11] MEDS ORDERED: PROMETHAZINE 25MG/ML 1ML VIAL IV ONE (16:00)
[2021-09-11 16:38] LABS: GC DNA AMPLIFICATION NEGATIVE (NEGATIVE)
[2021-09-11] MEDS ORDERED: ISOVUE-370 76% 100ML VIAL As Ordered ONE (16:39)
[2021-09-11] MEDS ORDERED: KETOROLAC 30 MG/ML 1ML VIAL IV ONE (18:00)
[2021-09-11 18:57] VITALS: BP 136/66
== END 2021-09-11 19:05 | disposition home or self-care (01) ==
LOC: EDBD 13:57 → M ED 13:57
DX: R10.9 Unspecified abdominal pain (principal); Z79.52 Long term (current) use of systemic steroids; Z91.018 Allergy to other foods; Z91.030 Bee allergy status
CPT/HCPCS: 74177; 76830; 76856; 80048; 80076; 81001; 83690; 84703; 85025; 87661; 87810; 87850; 93041; 93976; 96361; 96374; 96375; 99284; J1885; J2270; J2405; J2550; Q9967

== ENCOUNTER 2021-09-16 11:05 | Emergency (ER) | payer OTHER ==
[~2021-09-16] VITALS: Ht 172.7 cm; Wt 81.8 kg
[2021-09-16] MEDS ORDERED: ACET1TAB55 PO (11:29)
[2021-09-16] MEDS ORDERED: DEPO150I12 IM (11:29)
[2021-09-16] MEDS ORDERED: ACETAMINOPHEN 325 MG/10.15 ML UDC PO ONE (14:25)
[2021-09-16] MEDS ORDERED: LIDOCAINE VISCOUS 2% SOLN 15ML UDC SS ONE (14:30)
[2021-09-16] MEDS ORDERED: ONDANSETRON 4MG ORAL DISINTEGRATING TAB PO ONE (15:40)
[2021-09-16] MEDS ORDERED: LIDO2SOL9 PO (17:00)
[2021-09-16] MEDS ORDERED: DOXY-443 PO (17:00)
[2021-09-16 17:09] VITALS: BP 145/73
== END 2021-09-16 17:15 | disposition home or self-care (01) ==
LOC: M ED 11:05
DX: J02.9 Acute pharyngitis, unspecified (principal)

== ENCOUNTER 2021-10-07 04:33 | Emergency (ER) | payer OTHER ==
[~2021-10-07] VITALS: Ht 175.3 cm; Wt 72.3 kg
[~2021-10-07 04:33] MED LIST changes: +DEPO150I12 IM; +DOXY-443 PO; +LIDO2SOL9 PO
[2021-10-07] MEDS ORDERED: KETOROLAC 30 MG/ML 1ML VIAL IM ONE (06:50)
[2021-10-07] MEDS ORDERED: diazePAM 5MG TABLET PO ONE (08:20)
[2021-10-07] MEDS ORDERED: CYCL5TAB PO (08:27)
[2021-10-07 08:37] VITALS: BP 126/59
== END 2021-10-07 08:57 | disposition home or self-care (01) ==
LOC: M ED 04:33
DX: S39.012A Strain of muscle, fascia and tendon of lower back, initial encounter (principal); Y92.9 Unspecified place or not applicable; Y93.9 Activity, unspecified; Y99.9 Unspecified external cause status; Z91.030 Bee allergy status; Z91.018 Allergy to other foods
CPT/HCPCS: 72131; 96372; 99283; J1885

== ENCOUNTER → 2021-10-15 | Outpatient (REF) ==
[~2021-10-15] MED LIST changes: +CYCL5TAB PO
== END ==
LOC: M LABSMTC 09:20
PROVIDERS: ATTEND Family Medicine
DX: Z11.52 Encounter for screening for COVID-19 (principal)

== ENCOUNTER 2021-10-16 18:01 | Emergency (ER) | payer OTHER ==
[~2021-10-16] VITALS: Ht 175.3 cm; Wt 84.1 kg
[2021-10-16] MEDS ORDERED: NS 1,000 ML IV ONE (18:45)
[2021-10-16] MEDS ORDERED: KETOROLAC 30 MG/ML 1ML VIAL IV ONE ×2 (19:30→21:05)
[2021-10-16] MEDS: METOCLOPRAMIDE INJ 10MG/2ML VIAL (J2765 PER 1) IV ONE ×2 (19:30→19:49)
[2021-10-16 19:33] LABS: BASO % 0.2 % (0.0-1.0); EOS # 0.1 10^3/uL (0.0-0.5); EOS % 1.5 % (0.0-3.0); HEMOGLOBIN 12.9 g/dl (12.0-15.5); LYMPH # 2.5 10^3/uL (1.5-5.0); MEAN CORPUSCULAR HGB CONC 33.1 g/dl (32.0-36.5); MEAN CORPUSCULAR VOLUME 96.8 fl (80.0-96.0); MONO # 0.6 10^3/uL (0.0-0.8); MONO % 7.5 % (2.0-8.0); NEUTROPHILS # 4.8 10^3/uL (1.5-8.5); NEUTROPHILS % 59.4 % (36.0-66.0); PLATELET COUNT, AUTOMATED 238 10^3/uL (150-450); RED BLOOD COUNT 4.03 10^6/uL (4.00-5.40); WHITE BLOOD COUNT 8.2 10^3/uL (4.0-10.0)
[2021-10-16 19:52] LABS: ALBUMIN 3.4 GM/DL (3.2-5.2); ALT/SGPT 15 U/L (12-78); BILIRUBIN,DIRECT < 0.1 MG/DL (0.0-0.2); BILIRUBIN,TOTAL 0.2 MG/DL (0.2-1.0); LIPASE 96 U/L (73-393); TOTAL PROTEIN 6.3 GM/DL (6.4-8.2)
[2021-10-16] MEDS ORDERED: ISOVUE-370 76% 100ML VIAL As Ordered ONE (20:24)
[2021-10-16 21:11] VITALS: BP 118/62
== END 2021-10-16 21:50 | disposition home or self-care (01) ==
LOC: EDBD 18:01 → M ED 18:01
DX: N83.291 Other ovarian cyst, right side (principal); R11.2 Nausea with vomiting, unspecified; R55 Syncope and collapse; W01.198A Fall on same level from slipping, tripping and stumbling with subsequent striking against other object, initial encounter; Y92.009 Unspecified place in unspecified non-institutional (private) residence as the place of occurrence of the external cause; Y93.9 Activity, unspecified; Y99.9 Unspecified external cause status; Z87.59 Personal history of other complications of pregnancy, childbirth and the puerperium; G43.909 Migraine, unspecified, not intractable, without status migrainosus; N80.9 Endometriosis, unspecified; Z91.018 Allergy to other foods; Z91.030 Bee allergy status; Z79.899 Other long term (current) drug therapy
CPT/HCPCS: 36415; 70450; 74177; 76856; 80047; 80076; 83690; 84702; 85025; 96361; 96374; 96375; 99284; J1885; J2765; Q9967